=== PATIENT | male | born 1965 | race Caucasian/White ===

== ENCOUNTER → 2018-05-09 09:52 | Outpatient (CLI) | payer BC, SELFPAY ==
--- NOTE | 2018-05-09 10:05 | RAD_ITS ---
HISTORY: Left ankle pain Comparison: Left foot 11/11/2014 Findings: No fracture or acute disease. The tibiotalar joint space is preserved. No bony erosions. The talar dome appears intact. As visualized, the soft tissues are negative. Small plantar and posterior calcaneal spurs. RAD/Ankle min 3 Views IMPRESSION: 1. Negative left ankle. 2. Small plantar and posterior calcaneal spurs. at 0400 Reported and signed by: Jose Bass MD Electronically Signed: Jose Bass, at 3:58 EDT Tel , Service support ,
[2018-05-09 12:41] LABS: Anion Gap 9 (5-15); BUN 14 mg/dL (7-18); BUN/Creat Ratio 15.9 RATIO (10-20); Calcium,Total 8.8 mg/dL (8.5-10.1); Chloride 105 mmol/L (98-107); Cholesterol 243 mg/dL (200); Creatinine, Serum 0.88 mg/dL (0.70-1.30); EST Glomerular Filtration Rate 95 mL/min (>60); Est Glom Filt Rate - Afr Amer 115 mL/min (>60); Glucose 91 mg/dL (74-106); High Density Lipoprotein 43 mg/dL; PSA,Total - Annual Screen 1.58 ng/mL (0.00-4.00); Potassium 4.3 mmol/L (3.5-5.1); Sodium Level 140 mmol/L (136-145); Triglycerides 112 mg/dL; Very Low Density Lipoprotein 22 mg/dL (5-40)
[2018-05-09 12:44] LABS: Vitamin D,25 Hydroxy 41.4 ng/mL (29.95-100.01)
== END ==
PROVIDERS: Family Provider Family Medicine; PCP Family Medicine; Visit Provider Family Medicine
DX: Z00.00 Encounter for general adult medical examination without abnormal findings (principal); M25.572 Pain in left ankle and joints of left foot
CPT/HCPCS: 36415; 73610; 80048; 80061; 82306; 84153; G0103

== ENCOUNTER 2018-11-24 22:43 | Emergency (ER) | payer BC, SELFPAY ==
[2018-11-24 22:44] VITALS: BP 166/106; PULSE 80; RESP 16; TEMP 36.1; O2SAT 97; BMI 33.3
--- NOTE | 2018-11-24 23:11 | ED.DCSUM_ITS ---
- ER Visit Summary Date of Service: 11/24/18 Chief Complaint: Ear pain History of Present Illness: The patient is a 53 M who presents with right ear pain. Patient returns from vacation. He does not recall submerging his ear. He went to urgent care and was treated with amoxicillin. He attempted to irriga te his ear, but the pain is worse. It is intermittent, sharp, and severe. No hearing changes. No fevers. No other complaints or symptoms. Physical Examination: Right TM is occluded with cerumen. This was removed. TM appears to be intact, erythematous, bulging. Canal unremarkable. The remainder of his exam unremarkable. Test Results: None indicated Emergency Department Course and Treatment: Patient will discontinue amoxicillin. Will treat with Augmentin, prednisone, [place]. Follow-up with ENT for recheck Treatment Plan: As above Disposition: Discharge Impression: 1. Right ear pain This note was generated with [employer] dictation software. It may contain incorrect words, spelling, and punctuation that were not noted in review of the chart prior to signing ED Disposition - Plan for ED Patient: Referrals: Luis Enrique Napier MD [Primary Care Provider] -
--- NOTE | 2018-11-24 23:12 | ED.DEP ---
ED Disposition - Plan for ED Patient: Instructions: ED Otitis Media Acute Adult Prescriptions: Hydrocodone Bitart/Apap 5-325 [[place] 5MG-325MG] 1 tab PO Q6H PRN PRN 3 Days #10 tab PRN Reason: Pain Amox/Clavulanate Tablet [Augmentin Tablet] 875 mg PO Q12H #20 tab Prednisone 10 mg PO UD #33 tab Referrals: Luis Enrique Napier MD [Primary Care Provider] - Manjit Henderson MD [STAFF PHYSICIAN] -
[2018-11-24] MEDS: Amox/Clavulanate 875 MG Tablet PO (23:16)
[2018-11-24] MEDS: predniSONE 20 MG Tablet 60 MG PO (23:16)
[2018-11-24 23:17] VITALS: BP 173/100; PULSE 78; RESP 18; O2SAT 98
== END 2018-11-24 23:23 | disposition home or self-care (01) ==
LOC: ED 23:20
PROVIDERS: Emergency Provider Emergency Medicine; Family Provider Family Medicine; PCP Family Medicine
DX: H92.01 Otalgia, right ear (principal); H61.21 Impacted cerumen, right ear
CPT/HCPCS: 99283

== ENCOUNTER 2018-12-17 18:49 | Emergency (ER) | payer BC, SELFPAY ==
[2018-12-17 18:50] VITALS: BP 170/96; PULSE 109; RESP 16; TEMP 36.9; O2SAT 97; BMI 31.9
--- NOTE | 2018-12-17 18:52 | RAD_ITS ---
STUDY: X-RAY - LEFT ELBOW REASON FOR EXAM: Male, 53 years old. pop while lifting TECHNIQUE: 3 view(s) of the elbow. COMPARISON: None. FINDINGS: There is no evidence of fracture or dislocation. There are no significant degenerative changes. There are no radiodense foreign bodies. RAD/Elbow min 3 Views IMPRESSION: No fracture or dislocation. Electronically Signed: Carlos Estrada, at 19:06 EDT Tel , Service support ,
--- NOTE | 2018-12-17 20:20 | ED.VISSUMM ---
- ER Visit Summary Date of Service: 12/17/18 Chief Complaint: Left biceps injury History of Present Illness: The patient is a 53 M hand dominant. 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 Denies any fall or trauma. He is right-hand dominant. No prior history no prior surgery to his left elbow. No other complaints. Physical Examination: Middle-aged male no acute distress vital signs stable afebrile. HEENT exam unremarkable. Neck nontender. Lungs clear to auscultation bilaterally. Heart regular rhythm no murmur. Abdomen soft and nontender. Patient is moving all 4 extremities. Neurovascular intact. The medial aspect of the left lower biceps he has tenderness and retraction of the biceps proximally consistent with a left medial biceps tendon rupture. Otherwise he has full range of motion of his left shoulder was also nontender. Full flexion-extension of the elbow. 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 There is no swelling. Test Results: Nursing obtain a left elbow x-ray 3 views which showed no acute abnormality. No fracture. Emergency Department Course and Treatment: Examined history consistent with a left distal biceps tendon rupture. Treatment Plan: Ice and elevate. Motrin for pain. He does have Vicodin at home. Follow-up with Dr. De Paz of orthopedics. His is currently seeing her. Disposition: Discharge Impression: Left distal biceps tendon rupture This note was generated with [employer] dictation software. It may contain incorrect words, spelling, and punctuation that were not noted in review of the chart prior to signing ED Disposition - Plan for ED Patient: Referrals: Luis Enrique Napier MD [Primary Care Provider] -
--- NOTE | 2018-12-17 20:23 | ED.DCSUM_ITS ---
- ER Visit Summary Date of Service: 12/17/18 Chief Complaint: Left biceps injury History of Present Illness: The patient is a 53 M hand dominant. 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 Denies any fall or trauma. He is right-hand dominant. No prior history no prior surgery to his left elbow. No other complaints. Physical Examination: Middle-aged male no acute distress vital signs stable afebrile. HEENT exam unremarkable. Neck nontender. Lungs clear to auscultation bilaterally. Heart regular rhythm no murmur. Abdomen soft and nontender. Patient is moving all 4 extremities. Neurovascular intact. The medial aspect of the left lower biceps he has tenderness and retraction of the biceps proximally consistent with a left medial biceps tendon rupture. Otherwise he has full range of motion of his left shoulder was also nontender. Full flexion-extension of the elbow. And left wrist and hand are neurovascular intact nontender with normal radial pulse, joint yarner strength and sensation. There is no swelling. Test Results: Nursing obtain a left elbow x-ray 3 views which showed no acute abnormality. No fracture. Emergency Department Course and Treatment: Examined history consistent with a left distal biceps tendon rupture. Treatment Plan: Ice and elevate. Motrin for pain. He does have Vicodin at h ome. Follow-up with Dr. De Paz of orthopedics. His is currently seeing her. Disposition: Discharge Impression: Left distal biceps tendon rupture This note was generated with [employer] dictation software. It may contain incorrect words, spelling, and punctuation that were not noted in review of the chart prior to signing ED Disposition - Plan for ED Patient: Referrals: Luis Enrique Napier MD [Primary Care Provider] -
--- NOTE | 2018-12-17 20:23 | ED.DEP ---
ED Disposition - Plan for ED Patient: Disposition: Home or Assisted Living Referrals: Faith De Paz DO [STAFF PHYSICIAN] - 1 Week Additional Instructions: Ice and elevate left elbow. Motrin and Tylenol for pain. Your home Vicodin as needed for more severe pain. Your x-ray was unremarkable. Your exam is consistent with a left biceps tendon rupture. Call and follow-up with Dr. De Paz.
[2018-12-17 20:32] VITALS: PULSE 99; RESP 16; O2SAT 100
--- NOTE | 2018-12-17 20:55 | ED.RN ---
pt asking this rn in triage for sling. dr. pulido informed, verbal order for sling. sling place. pt educated on use.
== END 2018-12-17 20:32 | disposition home or self-care (01) ==
PROVIDERS: Emergency Provider Emergency Medicine; Family Provider Family Medicine; PCP Family Medicine
DX: S46.212A Strain of muscle, fascia and tendon of other parts of biceps, left arm, initial encounter (principal); X50.9XXA Other and unspecified overexertion or strenuous movements or postures, initial encounter; Y93.9 Activity, unspecified; Y92.9 Unspecified place or not applicable; Y99.9 Unspecified external cause status; K21.9 Gastro-esophageal reflux disease without esophagitis; Z79.899 Other long term (current) drug therapy
CPT/HCPCS: 73080; 99283

== ENCOUNTER → 2018-12-23 08:05 | Outpatient (CLI) | payer BC, SELFPAY ==
[2018-12-18 14:38] VITALS: BMI 31.9
--- NOTE | 2018-12-23 08:07 | MRI_ITS ---
STUDY: MRI LEFT ELBOW REASON FOR EXAM: Distal biceps tendon tear, left elbow injury 6 days ago. TECHNIQUE: Standardized fat and water weighted pulse sequences were obtained in all 3 orthogonal planes. COMPARISON: Radiographs 12/17/2018. FINDINGS: Normal radio-capitellum articulation. Normal radial collateral ligamentous complex. There is tendinosis of the common extensor tendon (inversion recovery coronal images 12, 13) without focal discontinuity of the tendon. Normal ulnotrochlear articulation. Normal ulnar collateral ligamentous complex. There is tendinosis of the common flexor tendon (inversion recovery coronal images 8, 9) without focal discontinuity of the tendon. The cubital tunnel is normal, with a normal ulnar nerve. There is a high-grade partial tear of the distal biceps tendon near the radial tuberosity insertion (T2 axial images 6-8; inversion recovery coronal image 18) with mild adjacent fluid/hemorrhage. There is edema at the distal biceps musculotendinous junction (inversion recovery coronal images 21, 22). Normal brachialis musculotendinous insertion. Normal triceps tendon and teno-osseous insertion. Normal olecranon process. The visualized distal humerus, proximal radius, and ulna are normal. There is a low-grade strain of the proximal flexor musculature (inversion recovery coronal image 11). There is edema in the subcutis adipose space. MRI/Upper Ext Joint Only(Routine) IMPRESSION: High-grade partial tear of the distal biceps tendon. Strain of the distal biceps musculotendinous junction. Tendinosis of the common extensor and common flexor tendons. Low-grade strain of the proximal flexor musculature. Electronically Signed: Kishore Allen MD at 9:32 EDT Tel , Service support ,
== END ==
PROVIDERS: Family Provider Family Medicine; PCP Family Medicine; Referring Provider Orthopaedic Surgery; Visit Provider Orthopaedic Surgery
DX: S46.212A Strain of muscle, fascia and tendon of other parts of biceps, left arm, initial encounter (principal); X58.XXXA Exposure to other specified factors, initial encounter; Y93.9 Activity, unspecified; Y92.9 Unspecified place or not applicable; Y99.9 Unspecified external cause status
CPT/HCPCS: 73221

== ENCOUNTER 2018-12-24 10:53 | Day surgery (SDC) | payer BC, SELFPAY ==
--- NOTE | 2018-12-18 02:38 | HP_ITS ---
I have re-examined the patient. There are no clinical changes since date of exam. Intake Intake Visit Reasons: LViry MAHMOOD Is patient in pain?: Yes Pain scale (1-10): 4 Allergies pseudoephedrine Allergy (Verified 11/24/18 22:43) Other Gadolinium-MRI Contrast Medium [Gadolinium-Contrast Medium - MRI] Adverse Reaction (Verified 11/24/18 22:43) Vomiting Medications Omeprazole 20 mg PO DAILY 12/17/18 [History Confirmed 12/17/18] PFSH Social History Smoking Status: Never smoker HPI Primitivo MAHMOOD: Surgical H&P: Yes Details: Parts of this documentation were recorded by a scribe, this documentation accurately reflects the service provided and the decisions made by me, Faith De Paz, DO 12/18/18 4115. IRENE NIETO is a 53 year old M here today for left distal biceps rupture referred from the ED. He states he was lifting a pool of the van last night and felt a pop in the elbow. He presents in a sling that he did remove for sleeping last night but has swelling in the forearm and hand with pain during rotation. He did use vicodin last night that he had at home but does not want to use anything like that again. Ortho Exam Left Elbow Sensation: Radial: I, Ulnar: I, Median: I Motor: Elbow Extension: 5, Elbow Flexion: 2 (painful supination swelling, no distal biceps tendon palpated), EPL: 5, FDP-2: 5 Assessment & Plan Problems 1. Traumatic rupture of left distal biceps tendon, initial encounter S46.212A Plan Explained that he needs the biceps reattached, we will order a pre-op MRI for the repair next saturday. 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 Reviewed the pre-operative plans with the patient. Risks and benefits of the procedure were fully explained, including but not limited to infection, neurovascular injury, continued pain, arthritis, stiffness, need for further surgery, re-injury, DVT, PE, general risks of anesthesia, and loss of limb or life. The patient understands all the risks and does wish to proceed with written consent. Follow up after 2 wks postop or sooner if pain, swelling, numbness or associated symptoms, or concerns develop. All questions answered. Patient in agreement of plan. Orders Orders: Upper Ext Joint Only(Routine) Today S46.212A Coding Level of Care Code Off vis,new,level 3 Diagnoses Traumatic rupture of left distal biceps tendon, initial encounter S46.212A ??Encounter type: initial encounter 12/18/18 1438 <Electronically signed by Faith ogden DO> Date _ Faith De Paz DO
[2018-12-18 14:38] VITALS: BMI 31.9
[2018-12-24] VITALS (16 sets, daily range): BP systolic 148–183; BP diastolic 94–107; PULSE 80–108; RESP 16–18; TEMP 36.4–37.4; O2SAT 90–100; BMI 33.5
--- NOTE | 2018-12-24 12:45 | TESH_PTH ---
PATIENT: IRENE NIET[place] [facility] [id number] AGE/SX: 53/M ROOM: RE12/24/[address]: Dr. Faith De Paz DO : 1965 BED: DIS: 12/24/2018 SPEC #: [id number] RECD: 12/25/18 08:09 STATUS: ASTER EPHRAIM #: [id number] ADAN: 12/24/18 12:[address]: Faith De Paz DEPT: SURGICAL PATHOLOGY RECD BY: Miguel Angel Winn ENTERED: 12/25/18 09:43 SP TYPE: TENDON OTHR DR: Dr. Luis Enrique Napier MD Tissues: Tendon and tendon sheath, NOS Procedures: Surgery Specimen Level III HEADER OPERATION: Repair distal biceps tendon PRE-OP DIAGNOSIS: Traumatic rupture of left distal biceps tendon TISSUE SUBMITTED: Biceps tendon MICROSCOPIC DIAGNOSIS Biceps tendon, repair: Degenerative fibrotendinous tissue with granulation tissue formation; clinically traumatic rupture of distal biceps tendon. CE:wilmer 12/26/18 MICROSCOPIC DESCRIPTION Slides are reviewed. GROSS DESCRIPTION Received in fixative is one container labeled with the patient's name and designated biceps tendon. The specimen consists of a single caban-pink portion of soft tissue measuring 1.4 x 1 x 0.8 cm. The specimen is bisected and totally submitted in one cassette. / CE:wilmer 12/25/18 TC:5 CPT: 18224
--- NOTE | 2018-12-24 12:54 | RAD_ITS ---
STUDY: X-RAY - LEFT ELBOW REASON FOR EXAM: Male, 53 years old. Fluoroscopic guided intraoperative distal biceps repair TECHNIQUE: 3 fluoroscopic view(s) of the elbow. COMPARISON: None. FINDINGS: 3 views were obtained utilizing fluoroscopic guidance during intraoperative repair of distal biceps. For more complete information recommend correlation with surgical notes.. RAD/Elbow 2 Views IMPRESSION: Intraoperative repair of distal biceps Electronically Signed: Carlos Disla MD at 16:16 EDT , Service support ,
[2018-12-24] MEDS: Cefazolin 2 GM in 0.9% Normal Saline 100 ML IV (13:26)
[2018-12-24] MEDS: Mupirocin Ointment 22gm Tube 1 APPLIC (15:35)
[2018-12-24] MEDS: Bupivacaine 0.25% 30 ML Vial (15:36)
--- NOTE | 2018-12-24 15:59 | DCINST_ITS ---
Discharge Diet: No Restrictions - leave dressing on, follow up in 2 weeks, sling for comfort, call with concerns, no active motion of elbow/passive rotation and flexion only Discharge Activity: May Not Drive May shower in (days): 1 Ice area for (Minutes): 20 - Every hour while awake. Weight Bearing Status: Weight bearing as tolerated Keep extremity elevated above heart level: Operative Extremity Call your doctor if your incision/area has: Continuous Slow Oozing, Sudden Increased Bleeding, Increased Pain/ Swelling, Increased Redness, Foul Smelling Discharge Call your doctor if you observe: Fever of 101 or Higher, Coldness, Increased Pain, Numbness or Tingling, Change in Color, Calf discomfort Allergies/Adverse Reactions: Allergies pseudoephedrine Allergy (Verified 12/22/18 13:12) Other HTN Gadolinium-MRI Contrast Medium [Gadolinium-Contrast Medium - MRI] Adverse Reaction (Verified 12/22/18 13:12) Vomiting Medications to take at Discharge Omeprazole 20 mg PO QHS 12/17/18 Armodafinil [Nuvigil] 75 mg PO QHS 12/22/18 Oxycodone HCl/Acetaminophen [Percocet 5/325] 1 - 2 tab PO Q6H PRN PRN 5 Days #60 tab 12/24/18 Oxycodone HCl/Acetaminophen [Percocet 5/325] 1 - 2 tablet PO Q6H PRN PRN 5 Days #28 tablet 12/24/18 The following prescriptions were given: Oxycodone HCl/Acetaminophen [Percocet 5/325] 1 - 2 tab PO Q6H PRN PRN 5 Days #60 tab PRN Reason: Pain Transmission Status: Pending to [facility] Oxycodone HCl/Acetaminophen [Percocet 5/325] 1 - 2 tablet PO Q6H PRN PRN 5 Days #28 tablet PRN Reason: Pain Transmission Status: Sent to [facility] Primary Care Physician: Luis Enrique Napier MD [Primary Care Provider] - Test Results: Test results from this visit will be discussed in further detail at your follow- up appointment, if applicable. Please Follow Up With: Faith De Paz, - [phone]
--- NOTE | 2018-12-24 16:00 | PCM.OPRPT ---
Report of Operation Date of Procedure: 12/24/18 Pre-Operative Diagnosis: left distal biceps rupture Post-Operative Diagnosis: same Surgery/Procedure Performed:: left distal biceps repair/arthrex tension button and screw customer success intern: Jose Rubio Type of Anesthesia:: General Anesthesiologist: Manjit Oh Estimated Blood Loss (mL): 25cc Fluids Replaced: 1100cc lr Description of Procedure: Preop note Patient is a 53-year-old male who was doing work and felt immediate pop and deformity of his elbow. Seen in the emergency room and thought to have distal biceps tendon was MRI confirms distal biceps tendon tear to my office. Patient discussed clinical options including repair versus conservative care, patient states he is quite active and would like use of his biceps for supination like to proceed with left distal biceps repair. Wrist benefits alternatives were discussed the patient risks including but not limited to blood loss, blood clot, infection, neurovascular injury, failure procedure, loss of life and loss of limb. Patient is aware like proceed with left distal biceps repair. Operative note Patient seen and examined preoperative holding area. Left arm was marked. Patient brought the operating placed supine the operating table. Sign, anesthesia, antibiotics were administered. Left arm kept a draped in usual sterile fashion with a tourniquet on his upper arm was sterilely placed. We then marked our incision using fluoroscopy to ascertain the level of the radial tuberosity is about a 4 cm transverse incision about 4 cm distal to the flexion crease. We then used a timeout was performed and we then elevated segment of the arm pressure was raised to 250 torr. We then used a 15 blade to cut the skin dissected down to 9 the level of the biceps tendon but this was actually behind the lesion biceps quickly 1 of the vessels on his anterior distal dorsal arthritis volar to the biceps tendon however is secondary the fact that it was not retracted we left the remaining vessels intact. We notify the biceps tendon but the tendon was then lifted to the distal origin we then find the radial tuberosity after good positioning and cleaning of the distal end of the biceps tendon we then drilled 3.2 mm Arthrex system for distal biceps repair we drilled bicortically and then you will do and then measured our tendon to be 7 mm tendon we drilled 8 mm for the unicortical he we then placed the ends of the whipstitched tendon through the button button was then placed through the radial tuberosity to the other side and flipped. We then brought the tendon into the debrided unicortical he area. Patient with a prior to this we did irrigate the incision with copious with the sertraline sterile saline the event of any bone debris. The tendon try did seated well and are prepared hole. We then over we then used a 7 x 7 screw millimeters screws to be really to push the tendon ulnarly for definitive fixation of the for extra back-up fixation of the biceps tendon. The incision was irrigated with copious muscle sterile saline. Incision was closed with 3-0 Vicryl in a running 4-0 Monocryl. Sterile dressings were brought were applied. Tourniquet was deflated for total working time of 90 minutes. Patient tolerated procedure well no comp occasions transferred to recovery room in stable condition. Next Postoperative note Hospital pharmacy has prescriptions Call with concerns Follow-up in 2 weeks Leave dressing intact This note was generated with [employer] dictation software. It may contain incorrect words, spelling, and punctuation that were not noted in checking the note before signing. No active range of motion of arm in supination flexion or pronation discussed with family Addendum 01/02/2019 Evaluated patient after called by nurse for concerns with his postoperative arm. Evaluated patient and he had a swollen arm and cool hand and a thready radial pulse c/w compartment syndrome secondary to vascular injury. Attempted to call vascular surgeon who was not available in our hospital, and so I decided to transfer him to [facility]. Called vascular surgeon at [facility] and discussed case, patient accepted and transferred. Discussed case with Ortho and ER accepting doctors at [facility] as well.
[2018-12-24] MEDS: HYDROcodone Bitartrate/Apap 5/325 Tablet PO (16:58)
== END 2018-12-24 19:55 | disposition short-term general hospital (02) ==
LOC: SDC 10:55 → AC 10:58
PROVIDERS: Family Provider Family Medicine; PCP Family Medicine; Referring Provider Orthopaedic Surgery; Visit Provider Orthopaedic Surgery
PROC: (CPT 24341; principal; 2018-12-24 12:30)
DX: S46.212A Strain of muscle, fascia and tendon of other parts of biceps, left arm, initial encounter (principal); X50.9XXA Other and unspecified overexertion or strenuous movements or postures, initial encounter; Y93.9 Activity, unspecified; Y92.9 Unspecified place or not applicable; Y99.9 Unspecified external cause status; E78.00 Pure hypercholesterolemia, unspecified; G47.30 Sleep apnea, unspecified; Z79.899 Other long term (current) drug therapy
CPT/HCPCS: 01710; 24341; 73070; 76000; 88304; J7120; J2405

== ENCOUNTER → 2019-01-12 13:58 | Outpatient (CLI) | payer BC, SELFPAY ==
[2019-01-06 14:11] VITALS: BMI 33.5
[2019-01-12 15:37] LABS: Basophil# 0.02 X10^3/uL; Basophil% 0.5 % (0-1); Eosinophil# 0.07 X10^3/uL; Eosinophils% 1.9 % (0-5); Hematocrit 35.9 % (40-54); Hemoglobin 10.7 g/dl (13.0-16.5); Lymphocyte % 29.3 % (19-41); Mean Corp Hgb Conc 29.8 g/gl (32-36); Mean Corpuscular Hgb 26.1 pg (27.0-32.0); Mean Corpuscular Volume 87.6 fL (80-94); Mean Platelet Vol. 8.9 fl (6.2-12.0); Monocyte# 0.51 X10^3/uL; Monocyte% 13.6 % (0-10); Neutrophil # 2.03 X10^3/uL (2.7-7.7); Neutrophil % 53.9 % (47-70); Platelet Count 437 K/mm3 (150-450); RBC Distribution Width CV 15.9 % (11.6-14.6); RBC Distribution Width SD 49.8 fl (35.1-43.9); White Blood Count 3.8 K/mm3 (4.4-11.0)
[2019-01-12 15:43] LABS: POSITIVE COUNT NO; POSITIVE DIFFERENTIAL NO; POSITIVE MORPHOLOGY NO
[2019-01-12 15:46] LABS: ALB/GLOB Ratio 0.8 RATIO (0.9-2.4); AST(SGOT) 44 U/L (15-37); Alanine Aminotransfer ALT/SGPT 75 U/L (16-61); Albumin, Serum 3.3 g/dL (3.2-5.0); Alkaline Phosphatase 165 U/L (45-117); Anion Gap 5 (5-15); BUN 12 mg/dL (7-18); BUN/Creat Ratio 12.6 RATIO (10-20); Calcium,Total 9.2 mg/dL (8.5-10.1); Chloride 101 mmol/L (98-107); Creatinine, Serum 0.96 mg/dL (0.70-1.30); EST Glomerular Filtration Rate 87 mL/min (>60); Est Glom Filt Rate - Afr Amer 105 mL/min (>60); Globulin 4.2 g/dL (2.2-4.2); Glucose 94 mg/dL (74-106); Potassium 4.2 mmol/L (3.5-5.1); Protein, Total 7.5 g/dL (6.4-8.2); Sodium Level 138 mmol/L (136-145)
== END ==
PROVIDERS: Family Provider Family Medicine; PCP Family Medicine; Visit Provider Physician Assistant
DX: Z47.89 Encounter for other orthopedic aftercare (principal)
CPT/HCPCS: 36415; 80053; 85025

== ENCOUNTER 2019-03-30 16:52 | Emergency (ER) | payer BC, SELFPAY ==
[2019-01-06 14:11] VITALS: BMI 33.5
[2019-03-30 16:52] VITALS: BP 211/123; PULSE 93; RESP 17; TEMP 36.3; O2SAT 96; BMI 33.7
--- NOTE | 2019-03-30 19:35 | ED.RN ---
patient left without being seen at 1906
== END 2019-03-30 20:10 | disposition left against medical advice (07) ==
LOC: ED 20:06
PROVIDERS: Emergency Provider Emergency Medicine; Family Provider Family Medicine; PCP Family Medicine
DX: R51 Headache (principal); Z53.21 Procedure and treatment not carried out due to patient leaving prior to being seen by health care provider

== ENCOUNTER → 2019-04-03 08:53 | Outpatient (CLI) | payer BC, SELFPAY ==
[2019-03-30 16:52] VITALS: BMI 33.7
[2019-04-03 10:10] LABS: Anion Gap 6 (5-15); BUN 17 mg/dL (7-18); BUN/Creat Ratio 16.2 RATIO (10-20); Calcium,Total 9.2 mg/dL (8.5-10.1); Chloride 101 mmol/L (98-107); Creatinine, Serum 1.05 mg/dL (0.70-1.30); EST Glomerular Filtration Rate 78 mL/min (>60); Est Glom Filt Rate - Afr Amer 94 mL/min (>60); Glucose 115 mg/dL (74-106); Potassium 4.1 mmol/L (3.5-5.1); Sodium Level 137 mmol/L (136-145)
== END ==
PROVIDERS: Family Provider Family Medicine; PCP Family Medicine; Referring Provider Family Medicine; Visit Provider Nurse Practitioner Adult Health
DX: I10 Essential (primary) hypertension (principal)
CPT/HCPCS: 36415; 80048

== ENCOUNTER → 2019-04-07 09:00 | Outpatient (CLI) | payer BC, SELFPAY ==
[2019-03-30 16:52] VITALS: BMI 33.7
[2019-04-07 11:15] LABS: Anion Gap 9 (5-15); BUN 17 mg/dL (7-18); BUN/Creat Ratio 17.7 RATIO (10-20); Calcium,Total 9.9 mg/dL (8.5-10.1); Chloride 101 mmol/L (98-107); Creatinine, Serum 0.96 mg/dL (0.70-1.30); EST Glomerular Filtration Rate 86 mL/min (>60); Est Glom Filt Rate - Afr Amer 104 mL/min (>60); Glucose 95 mg/dL (74-106); Potassium 4.4 mmol/L (3.5-5.1); Sodium Level 141 mmol/L (136-145)
== END ==
PROVIDERS: Family Provider Family Medicine; PCP Family Medicine; Referring Provider Family Medicine; Visit Provider Family Medicine
DX: I10 Essential (primary) hypertension (principal)
CPT/HCPCS: 36415; 80048

== ENCOUNTER 2019-04-30 10:00 | Outpatient (RCR) | payer BC, SELFPAY ==
[2019-04-16 10:34] VITALS: BP 143/85; PULSE 100; RESP 16; TEMP 36.7; BMI 32.6
--- NOTE | 2019-04-16 11:30 | PCM.WC.HP ---
(1) Non-healing surgical wound Status: Chronic Current Visit: Yes Code(s): T81.89XA - Other complications of procedures, not elsewhere classified, initial encounter (2) History of fasciotomy Status: Chronic Current Visit: Yes Code(s): Z98.890 - Other specified postprocedural states History of Present Illness Date of Service: 04/16/19 Chief Complaint: Non healing Post surgical wound History of Wound: Mr Sanders is a 53yr old who was referred to the wound center due to non healing post surgical wound. He is s/p left arm facsiotomy in December after he developed compartment syndrome. He had stitch removal a while after and noted a non healed area which has persisted. He has tried some conservative measures without any significant improvement. He was subsequently referred here by his Orthopedic surgeon. He feels well at this time and denies chills or fever. Past Medical History Past Medical History: Chronic Problems Non-healing surgical wound (Chronic) History of fasciotomy (Chronic) Allergies/Adverse Reactions: Allergies pseudoephedrine Allergy (Verified 03/30/19 16:55) Other HTN Gadolinium-MRI Contrast Medium [Gadolinium-Contrast Medium - MRI] Adverse Reaction (Verified 03/30/19 16:55) Vomiting Home Medications: Ambulatory Orders Medication Instructions Recorded Omeprazole 20 mg PO QHS 12/17/18 Armodafinil [Nuvigil] 75 mg PO QHS 12/22/18 enoxaparin 40 mg/0.4 mL 40 mg SC DAILY 01/06/19 subcutaneous syringe Smoking Status: Never smoker Review of Systems Constitutional: Denies: Anorexia, Chills, Fever Eyes: Denies: Blurred vision, Pain, Redness HEENT: Denies: Difficulty Swallowing Cardiovascular: Denies: Chest Pain, Chest Tightness Respiratory: Denies: Hemoptysis Gastrointestinal: Denies: Abdominal Pain, Hematemesis, Vomiting Genitourinary: Denies: Hematuria Skin: Denies: Jaundice - Physical Exam Vital Signs Temp Pulse Resp BP 98.0 F 100 16 143/85 H 04/16/19 10:34 04/16/19 10:34 04/16/19 10:34 04/16/19 10:34 General: Alert, Oriented x3, Cooperative, No apparent distress HEENT: Atraumatic, Normocephalic Oral: Moist Mucosa Neck: Supple Lungs: Normal air movement Cardiovascular: Regular rate, Regular Rhythm, Normal S1, Normal S2 Abdomen: Soft, Non Tender Extremities: No cyanosis Skin: Ulcer/ Wound Wound Measurements and Assessment WC - Nurse 1 - General Ulcer Measurement Start: 04/16/19 10:34 Freq: Status: Active Protocol: Activity Type Activity Date Activity User E-Sign Co-Sign Detail Recorded Client Recorded Date Recorded By Document 04/16/19 10:34 CS [id number] 04/16/19 10:51 CS 04/16/19 10:34 Wound Center Nurse 1 [Ulcer Assessment] #1 LEFT WRIST -Combined with other wound No -Current Size (cm) - Length 1.9 -Current Size (cm) - Width 0.5 -Current Size (cm) - Depth 0.1 -Total Square Cm 0.95 -Date of Last Picture (Recall this 04/16/19 field) -Photo Taken Yes -Epithelialization None Present -Tunneling No -Undermining/Tunneling No -Circular Undermining No -Exudate Amt None Present -Wound Margin Thickened -Granulation Amt None Present (0 %) -Slough/Fibrin Yes -Necrosis Amt Large (67-100%) -Necrotic Tissue Type Adherent Slough -Structure Exposed N/A -Texture (Sonia-wound Skin Appearance) Scarring -Moisture (Sonia-wound Skin Appearance Dry/Scaly ) -Color (Sonia-wound Skin Appearance) No Abnormality, Assessed -Temperature (Sonia-wound Skin No Abnormality Appearance) (Pt Warm) -Tenderness on Palpation (Sonia-wound No Skin Appearance) -Ulcer Cleansing Rinsed/ Irrigated with Saline -Foul Odor after Cleansing No -Anesthetic Used 4% Lidocaine Solution [Edema Assessment] -Lower Limb Edema Present NA WC - Nurse 2 - General Ulcer CM Notes Start: 04/16/19 10:34 Freq: Status: Active Protocol: Activity Type Activity Date Activity User E-Sign Co-Sign Detail Recorded Client Recorded Date Recorded By Document 04/16/19 11:06 MW [id number] 04/16/19 11:10 MW 04/16/19 11:06 Wound Center Nurse 2 [Procedure/Treatment] #1 LEFT WRIST -Time 11:06 -Correct Patient Yes -Correct Side, Site, Position Yes -Correct Procedure Yes -Procedure Performed Yes -Type of Procedure Debridement -Clinical Debridement Subcutaneous -Post Debridement Size (cm) - Length 3.0 -Post Debridement Size (cm) - Width 0.7 -Post Debridement Size (cm) - Depth 0.1 -Total Square Cm 2.10 -Wound/Ulcer Outcome Not Healed -Ulcer Cleansing Rinsed/ Irrigated with Saline -Foul Odor after Cleansing No -Bioengineered Tissue No -Bleeding Controlled with Pressure -Offloading No -Treatment Response Procedure Tolerated Well [See Physician Procedure note for Specifics] Pain Scale: 0-10 Numeric [Pain] -Is Patient Pain Free? Yes Musculoskeletal: No Muscle Wasting Neurological: Cranial nerves II-XII grossly intact Psych/Mental Status: Normal Affect Debridement Note Post-Debridement Measurements/Treatment WC - Nurse 2 - General Ulcer CM Notes Start: 04/16/19 10:34 Freq: Status: Active Protocol: Activity Type Activity Date Activity User E-Sign Co-Sign Detail Recorded Client Recorded Date Recorded By Document 04/16/19 11:06 MW [id number] 04/16/19 11:10 MW 04/16/19 11:06 Wound Center Nurse 2 #1 LEFT WRIST -Time 11:06 -Correct Patient Yes -Correct Side, Site, Position Yes -Correct Procedure Yes -Procedure Performed Yes -Type of Procedure Debridement -Clinical Debridement Subcutaneous -Post Debridement Size (cm) - Length 3.0 -Post Debridement Size (cm) - Width 0.7 -Post Debridement Size (cm) - Depth 0.1 -Total Square Cm 2.10 -Wound/Ulcer Outcome Not Healed -Ulcer Cleansing Rinsed/ Irrigated with Saline -Foul Odor after Cleansing No -Bioengineered Tissue No -Bleeding Controlled with Pressure -Offloading No -Treatment Response Procedure Tolerated Well Pain Scale: 0-10 Numeric Is Patient Pain Free? Yes Wound debrided: Left forearm Type of Debridement: Excisional debridement Anesthesia Used: 4% Lidocaine Solution Depth: Down to and including healthy tissue, in the subcutaneous layer Percentage of wound debrided: 100 Instrument Used: 5mm curette Tissue Removed: Slough and devitalized tissue Severity: Fat Layer Exposed Amount of bleeding with debridement: Mild Bleeding Controlled with: Pressure Patient tolerated procedure well Assessment/Plan Active Problems Non-healing surgical wound (Chronic) History of fasciotomy (Chronic) Assessment: Same as above. Plan: Debridement done as documented above, procedure was well tolerated. Pomogran daily with adaptic over top. Increased protein intake is recommended. Single layer tubigrip for compression. His questions were answered and he was advised to call with any further questions or concerns. Follow up in 1 week.
[2019-04-23 09:25] VITALS: BP 159/97; PULSE 94; RESP 16; TEMP 36; BMI 32.6
--- NOTE | 2019-04-23 10:18 | PN.PCM_ITS ---
(1) Non-healing surgical wound Status: Chronic Current Visit: Yes Code(s): T81.89XA - Other complications of procedures, not elsewhere classified, initial encounter (2) History of fasciotomy Status: Chronic Current Visit: Yes Code(s): Z98.890 - Other specified postprocedural states Type of Wound Date of Service: 04/23/19 Chief Complaint: Non healing Post surgical wound History of Wound: Mr Sanders is a 53yr old who was referred to the wound center due to non healing post surgical wound. He is s/p left arm facsiotomy in December after he developed compartment syndrome. He had stitch removal a while after and noted a non healed area which has persisted. He has tried some conservative measures without any significant improvement. He was subsequently referred here by his Orthopedic surgeon. He feels well at this time and denies chills or fever. Progress of Wound: Stable. No new concerns at this time. - Physical Exam Vital Signs Temp Pulse Resp BP 96.8 F L 94 16 159/97 H 04/23/19 09:25 04/23/19 09:25 04/23/19 09:25 04/23/19 09:25 General: Alert, Oriented x3, Cooperative, No apparent distress HEENT: Atraumatic, Normocephalic Oral: Moist Mucosa Neck: Supple Extremities: No cyanosis Skin: Ulcer/ Wound Wound Measurements and Assessment WC - Nurse 1 - General Ulcer Measurement Start: 04/16/19 10:34 Freq: Status: Active Protocol: Activity Type Activity Date Activity User E-Sign Co-Sign Detail Recorded Client Recorded Date Recorded By Document 04/23/19 09:25 [facility] [id number] 04/23/19 09:31 [facility] 04/23/19 09:25 Wound Center Nurse 1 [Ulcer Assessment] #1 LEFT WRIST -Combined with other wound No -Current Size (cm) - Length 3.6 -Current Size (cm) - Width 0.5 -Current Size (cm) - Depth 0.1 -Total Square Cm 1.80 -Photo Taken No -Epithelialization Small 1-33% -Tunneling No -Undermining/Tunneling No -Circular Undermining No -Exudate Amt Small -Exudate Type Serous -Wound Margin Distinct, Outline Attached -Granulation Amt Medium (34-66%) -Granulation Quality Red -Slough/Fibrin Yes -Necrosis Amt Medium (34-66%) -Necrotic Tissue Type Adherent Slough -Texture (Sonia-wound Skin Appearance) Assessed, Scarring -Moisture (Sonia-wound Skin Appearance Assessed ) -Color (Sonia-wound Skin Appearance) Not Assessed -Temperature (Sonia-wound Skin No Abnormality Appearance) (Pt Warm) -Tenderness on Palpation (Sonia-wound No Skin Appearance) -Ulcer Cleansing Rinsed/ Irrigated with Saline -Foul Odor after Cleansing No -Anesthetic Used 5% Lidocaine Gel - Nurse 2 - General Ulcer CM Notes Start: 04/16/19 10:34 Freq: Status: Active Protocol: Activity Type Activity Date Activity User E-Sign Co-Sign Detail Recorded Client Recorded Date Recorded By Document 04/23/19 09:51 MW [id number] 04/23/19 09:54 MW 04/23/19 09:51 Wound Center Nurse 2 [Procedure/Treatment] -Time 09:52 -Correct Patient Yes -Correct Side, Site, Position Yes -Correct Procedure Yes -Procedure Performed Yes -Type of Procedure Debridement -Clinical Debridement Subcutaneous -Post Debridement Size (cm) - Length 3.2 -Post Debridement Size (cm) - Width 0.5 -Post Debridement Size (cm) - Depth 0.1 -Total Square Cm 1.60 -Wound/Ulcer Outcome Not Healed -Ulcer Cleansing Rinsed/ Irrigated with Saline -Foul Odor after Cleansing No -Bioengineered Tissue No -Bleeding Controlled with Pressure -Offloading No -Treatment Response Procedure Tolerated Well [See Physician Procedure note for Specifics] Pain Scale: 0-10 Numeric [Pain] -Is Patient Pain Free? Yes Musculoskeletal: No Muscle Wasting Neurological: Cranial nerves II-XII grossly intact Psych/Mental Status: Normal Affect Debridement Note Post-Debridement Measurements/Treatment - Nurse 2 - General Ulcer CM Notes Start: 04/16/19 10:34 Freq: Status: Active Protocol: Activity Type Activity Date Activity User E-Sign Co-Sign Detail Recorded Client Recorded Date Recorded By Document 04/16/19 11:06 MW [id number] 04/16/19 11:10 MW Document 04/23/19 09:51 MW [id number] 04/23/19 09:54 MW 04/16/19 04/23/19 11:06 09:51 Wound Center Nurse 2 #1 LEFT WRIST -Time 11:06 09:52 -Correct Patient Yes Yes -Correct Side, Site, Position Yes Yes -Correct Procedure Yes Yes -Procedure Performed Yes Yes -Type of Procedure Debridement Debridement -Clinical Debridement Subcutaneous Subcutaneous -Post Debridement Size (cm) - Length 3.0 3.2 -Post Debridement Size (cm) - Width 0.7 0.5 -Post Debridement Size (cm) - Depth 0.1 0.1 -Total Square Cm 2.10 1.60 -Wound/Ulcer Outcome Not Healed Not Healed -Ulcer Cleansing Rinsed/ Rinsed/ Irrigated with Irrigated with Saline Saline -Foul Odor after Cleansing No No -Bioengineered Tissue No No -Bleeding Controlled with Pressure Pressure -Offloading No No -Treatment Response Procedure Procedure Tolerated Well Tolerated Well Pain Scale: 0-10 Numeric Is Patient Pain Free? Yes Yes Wound debrided: Left Forearm Type of Debridement: Excisional debridement Anesthesia Used: 4% Lidocaine Solution Depth: Down to and including healthy tissue, in the subcutaneous layer Percentage of wound debrided: 100 Instrument Used: 3mm curette Tissue Removed: Slough and devitalized tissue Severity: Fat Layer Exposed Amount of bleeding with debridement: Mild Bleeding Controlled with: Pressure Patient tolerated procedure well Assessment/Plan Active Problems Non-healing surgical wound (Chronic) History of fasciotomy (Chronic) Assessment: Same as above. Plan: Debridement done as documented above, procedure was well tolerated. Continue Pomogran daily with adaptic over top. Increased protein intake is recommended. Single layer tubigrip for compression. His questions were answered and he was advised to call with any further questions or concerns. Follow up in 1 week.
[2019-04-30 10:08] VITALS: BP 150/82; PULSE 91; RESP 20; TEMP 36.8; BMI 32.6
--- NOTE | 2019-04-30 10:34 | PCM.WC.PN ---
(1) Non-healing surgical wound Status: Chronic Current Visit: Yes Code(s): T81.89XA - Other complications of procedures, not elsewhere classified, initial encounter Comment: Left Forearm. (2) History of fasciotomy Status: Chronic Current Visit: Yes Code(s): Z98.890 - Other specified postprocedural states Type of Wound Date of Service: 04/30/19 Chief Complaint: Non healing Post surgical wound History of Wound: Mr Sanders is a 53yr old who was referred to the wound center due to non healing post surgical wound. He is s/p left arm facsiotomy in December after he developed compartment syndrome. He had stitch removal a while after and noted a non healed area which has persisted. He has tried some conservative measures without any significant improvement. He was subsequently referred here by his Orthopedic surgeon. He feels well at this time and denies chills or fever. Progress of Wound: Stable. No new concerns at this time. - Physical Exam Vital Signs Temp Pulse Resp BP 98.2 F 91 20 H 150/82 H 04/30/19 10:08 04/30/19 10:08 04/30/19 10:08 04/30/19 10:08 General: Alert, Oriented x3, Cooperative, No apparent distress HEENT: Atraumatic, Normocephalic Oral: Moist Mucosa Neck: Supple Lungs: Normal air movement Abdomen: Non Tender, Obese Extremities: No cyanosis Skin: Ulcer/ Wound Wound Measurements and Assessment WC - Nurse 1 - General Ulcer Measurement Start: 04/16/19 10:34 Freq: Status: Active Protocol: Activity Type Activity Date Activity User E-Sign Co-Sign Detail Recorded Client Recorded Date Recorded By Document 04/30/19 10:08 DL [id number] 04/30/19 10:14 DL 04/30/19 10:08 Wound Center Nurse 1 [Ulcer Assessment] #1 LEFT WRIST -Current Size (cm) - Length 2.1 -Current Size (cm) - Width 0.1 -Current Size (cm) - Depth 0.1 -Total Square Cm 0.21 -Photo Taken No -Exudate Amt None Present -Wound Margin Thickened -Granulation Quality [place] -Necrosis Amt Small (1-33%) -Necrotic Tissue Type Adherent Slough -Structure Exposed N/A -Texture (Sonia-wound Skin Appearance) Scarring -Moisture (Sonia-wound Skin Appearance No Abnormality ) -Color (Sonia-wound Skin Appearance) No Abnormality -Temperature (Sonia-wound Skin No Abnormality Appearance) (Pt Warm) -Tenderness on Palpation (Sonia-wound No Skin Appearance) -Ulcer Cleansing Rinsed/ Irrigated with Saline -Foul Odor after Cleansing No -Anesthetic Used 5% Lidocaine Gel WC - Nurse 2 - General Ulcer CM Notes Start: 04/16/19 10:34 Freq: Status: Active Protocol: Activity Type Activity Date Activity User E-Sign Co-Sign Detail Recorded Client Recorded Date Recorded By Document 04/30/19 10:30 MW [id number] 04/30/19 10:32 MW 04/30/19 10:30 Wound Center Nurse 2 [Procedure/Treatment] -Time 10:30 -Correct Patient Yes -Correct Side, Site, Position Yes -Correct Procedure Yes -Procedure Performed Yes -Type of Procedure Debridement -Clinical Debridement Subcutaneous -Post Debridement Size (cm) - Length 2.3 -Post Debridement Size (cm) - Width 0.3 -Post Debridement Size (cm) - Depth 0.1 -Total Square Cm 0.69 -Wound/Ulcer Outcome Not Healed -Ulcer Cleansing Rinsed/ Irrigated with Saline -Foul Odor after Cleansing No -Bioengineered Tissue No -Bleeding Controlled with Pressure -Offloading No -Treatment Response Procedure Tolerated Well [See Physician Procedure note for Specifics] Pain Scale: 0-10 Numeric [Pain] -Is Patient Pain Free? Yes Musculoskeletal: No Muscle Wasting Neurological: Cranial nerves II-XII grossly intact Psych/Mental Status: Normal Affect Debridement Note Post-Debridement Measurements/Treatment WC - Nurse 2 - General Ulcer CM Notes Start: 04/16/19 10:34 Freq: Status: Active Protocol: Activity Type Activity Date Activity User E-Sign Co-Sign Detail Recorded Client Recorded Date Recorded By Document 04/16/19 11:06 MW [id number] 04/16/19 11:10 MW Document 04/23/19 09:51 MW [id number] 04/23/19 09:54 MW Document 04/30/19 10:30 MW [id number] 04/30/19 10:32 MW 04/16/19 04/23/19 04/30/19 11:06 09:51 10:30 Wound Center Nurse 2 #1 LEFT WRIST -Time 11:06 09:52 10:30 -Correct Patient Yes Yes Yes -Correct Side, Site, Position Yes Yes Yes -Correct Procedure Yes Yes Yes -Procedure Performed Yes Yes Yes -Type of Procedure Debridement Debridement Debridement -Clinical Debridement Subcutaneous Subcutaneous Subcutaneous -Post Debridement Size (cm) - Length 3.0 3.2 2.3 -Post Debridement Size (cm) - Width 0.7 0.5 0.3 -Post Debridement Size (cm) - Depth 0.1 0.1 0.1 -Total Square Cm 2.10 1.60 0.69 -Wound/Ulcer Outcome Not Healed Not Healed Not Healed -Ulcer Cleansing Rinsed/ Rinsed/ Rinsed/ Irrigated with Irrigated with Irrigated with Saline Saline Saline -Foul Odor after Cleansing No No No -Bioengineered Tissue No No No -Bleeding Controlled with Pressure Pressure Pressure -Offloading No No No -Treatment Response Procedure Procedure Procedure Tolerated Well Tolerated Well Tolerated Well Pain Scale: 0-10 Numeric Is Patient Pain Free? Yes Yes Yes Wound debrided: Left Forearm Type of Debridement: Excisional debridement Anesthesia Used: 4% Lidocaine Solution Depth: Down to and including healthy tissue, in the subcutaneous layer Percentage of wound debrided: 100 Instrument Used: 3mm curette Tissue Removed: Slough and devitalized tissue Severity: Fat Layer Exposed Amount of bleeding with debridement: Mild Bleeding Controlled with: Pressure Patient tolerated procedure well Assessment/Plan Active Problems Non-healing surgical wound (Chronic) Left Forearm. History of fasciotomy (Chronic) Assessment: Same as above. Plan: Debridement done as documented above, procedure was well tolerated. Continue Pomogran daily with adaptic over top. Increased protein intake is recommended. Single layer tubigrip for compression. His questions were answered and he was advised to call with any further questions or concerns. Follow up in 1 week.
== END 2019-05-07 23:59 ==
LOC: WC 10:00
PROVIDERS: Family Provider Family Medicine; PCP Family Medicine; Visit Provider Internal Medicine
DX: T81.89XA Other complications of procedures, not elsewhere classified, initial encounter (principal); Y83.8 Other surgical procedures as the cause of abnormal reaction of the patient, or of later complication, without mention of misadventure at the time of the procedure
CPT/HCPCS: 11042; 99213; G0463

== ENCOUNTER 2019-05-14 09:30 | Outpatient (RCR) | payer BC, SELFPAY ==
[2019-01-06 14:11] VITALS: BMI 33.5
--- NOTE | 2019-01-14 12:44 | HP.OTEVAL_ITS ---
Patient's Visit Information IRENE NIETO is a 53 year old M, referred to Occupational Therapy by Faith De Paz DO, with a diagnosis of biceps tendon repair/ edema. Date of Evaluation: 01/12/19 Occupational Therapist: EBEN Swartz/Jamie, CHT - Subjective Subjective: This 53 year old male was seen for OT eval following a right distal bicep repair, with post op fasciotomy at [facility]. He arrives with elbow blocking extension orthosis and he has the incision from wrist to elbow covered in xeroform and gauze. Pt reports pain is 9/10 took 800mg or ibprohen prior to apt. pt not feeling well states he feel like he is in a fog. 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 - Pain left 8 Pain Intensity Range: 3, 8 - Objective Objective/Observation: pt arrives with wrap on left UE and protective elbow ext orthosis, for preventing elbow ext. cue to distal biceps tendon repair. incision looks good- one seeping area at proximal incision. scar adhesions. - ROM Elbow: Right WNL left -35/90 Forearm: left supination 0/pronation Right WNL Wrist: right WNL Left 15/25 Opposition: 3 ROM Comments: limited motion. pt unable to form a composite fist at this time-. opposition to tip of IF. - Strength Strength Comments: will test at later date - Edema Elbow: right 30cm left 34cm Wrist: right 19cm left 21cm PIP: right MF 6.7 left 8.6 - Sensation Thumb: right 2.83 Index: right 2.83 Middle: right 2.83 Ring: right 2.83 Little: right 2.83 Sensation Comments: pt left hand unable to feel monofilament at 5.07 therapist will cont. 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 Pts sensation is deminished. Edema present along with healing incision with sacar adhesions. pt limited with use of left UE for ADLs and IADLS. Pt would benefit from skilled OTR/L, CHT services to return pt to a ind, level with ADLs and IADLS. Therapy will initially focus on edema, scar mtg, ROM and progress pt as able to PRE to return pt to PLOF with ADls and IADLS. with complications of compartmental syndrom and nerve compression pt will possible need extended therpay services .PT and demo understanding and agree to POC. Rehabilitation Potential: Good - Anticipated Interventions Anticipated Interventions: A/AAROM/PROM, Strengthening, Edema Control, Scar Care, Triggerpoint Release, Desensitization, Sensory Retraining, Modalities, Orthoses, Fine Motor Coord/Miller, Caregiver Training, Home Program - Visit Plan Frequency: 2-3x /Week Duration: 2 Months TEXT: Thank you for the opportunity to evaluate your patient. For Medicare and Medicare HMO plans, please review the plan of care and approve it. It will need to be FAXED BACK to us at [phone] for Medicare purposes. Please let me know if there are questions or concerns regarding this plan of care. Physician Signature: Date:
--- NOTE | 2019-02-11 17:12 | OTREVAL_ITS ---
Faith De Paz, DO, It has been my pleasure to treat IRENE NIETO over the last 8 visits for biceps tendon repair/ edema. Please see the progress note below for an update on the occupational therapy plan of care! Subjective: pt states pain continues to be a struggle- ROM of wrist and fingers are not improving Objective/Function: pt demo opposition to tip of MF- no composite fist and limited finger ext. wrist 15/35. pt demo with limited wrist and finger ROM and would benefit from static progressive stata-dyne WHFO to get better stretch daily Plan Frequency: 2-3x /Week Duration: 2 Months Plan: cont with ROM edema and pain mtg. wound care Anticipated Interventions Anticipated Interventions: A/AAROM/PROM, Strengthening, Edema Control, Scar Care, Triggerpoint Release, Desensitization, Sensory Retraining, Modalities, Orthoses, Fine Motor Coord/Miller, Caregiver Training, Home Program Please do not hesitate to contact me at [phone] by phone or Fax: if you have questions or concerns regarding this new plan of care! Sincerely, Xi Vidal, OTR/L, CHT
--- NOTE | 2019-03-12 09:40 | HP.OTREVAL ---
Faith De Paz, DO, It has been my pleasure to treat IRENE NIETO over the last 18 visits for biceps tendon repair/ edema. Please see the progress note below for an update on the occupational therapy plan of care! Subjective: pt arrives with edema golve on- pt states he was trying to use his hand to repair his van door- and his door fell off- pt states his hand took awhile and he could feel his hand/wrist tighten up- pt is using stim unit- to assist with pain-pt is unable to use pain patch due to side effects - pins/tingling is about the same- more use of hand more tingling. pt reports he is using stata-dyne WHFO 2x a day but has not noticed a change in his motion. pt reports he is still using edema glove and sure press wrap to assist with edema mtg. Objective/Function: due to complications from a left biceps tendon repair- pt demo compartmental syndrome and underwent multiple sx to increase circulation- now pt continues to have nerve pain and scar adhesions to flexors of digits and wrist- pt cont. using abhishek-splint WHFO to assist in stretching wrist and digits and home tens unit to assist. left radiology specialist strength- unable. left wrist 15/30. left forearm supination at nutral. left IF MCP 40 PIP -40/68 DIP 30. left MF MCP 40 PIP -40/65 DIP 30. Left RF MCP 45 PIP -30/65 DIP 25. Left LF 45 PIP -15/35 DIP 20. pt limited with ROM and functional motion of wrist and digits-. pt has constant pins/tingling in all digits. Pt unable to use radiology specialist for any force grasp- pt can cloth picker med. to large cone. cylinder shape Plan Frequency: 2-3x /Week Duration: 2 Months Plan: request more visits due to multiple complications and slow nerve repair, scar, edema and pain Anticipated Interventions Anticipated Interventions: A/AAROM/PROM, Strengthening, Edema Control, Scar Care, Triggerpoint Release, Desensitization, Sensory Retraining, Modalities, Orthoses, Fine Motor Coord/Miller, Caregiver Training, Home Program Please do not hesitate to contact me at [phone] by phone or if you have questions or concerns regarding this new plan of care! Sincerely, Xi Vidal, OTR/L, CHT
--- NOTE | 2019-04-22 09:52 | HP.PTEVAL ---
Patient's Visit Information IRENE NIETO is a 53 year old M referred to Physical Therapy by Faith De Paz DO with a diagnosis of Biceps Tendon Repair. Date of Evaluation: 04/21/19 Physical Therapist: Emily Mendez DPT - Visit Plan Frequency: 2-3x /Week Duration: 6 Weeks Plan: Focus on Shoulder/Elbow ROM, strength and scar management. - Subjective Findings: Had biceps repair- with compartment syndrome- ran out of OT visits- cant' feel unless its drastic difference between hot and cold. Best thing he can do is run hot water on it. The splint is to big at this point. Uses a TENS Unit for pain control. Sensation and pain always there. N/T, burning- palmar side and fingertips are hyper sensitive. Thumb is tight and painful. Tried to use KT Tape but was unable to do increase sensation. Feels like there is clamps all over the hand. Right hand dominate. Ortho in [place]. Had a nerve block last week by Dr. London and it helped the shoulder but no change in the hand. Can't lean on the elbow/shoulder it causes a sleep sensation throughout his arm/hand. No Neck pain- Shoulder- along the deltoid- still has same pain but its less- hard to lift but is now able to use it all. Has full range in the elbow flexion/extn but not sup/pro. Is not wearing the compression garment and the swelling has gone done. Still has an open wound on the forearm- is at the Wound center weekly and he does his own dressing changes at home. 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 Sleep: wakes him up- hard to get comfortable- has to lay on right side or back. PMHx: HTN Meds: losartin, hydrochlorothiaside, Neurontin, tizanodine, nortriptolene, symbalta. - Objective Posture: FH, RS, increaesed guarding of the left UE. Observation: signficant scarring below the elbow along the anterior portion of the forearm- bandage covers the open wound. Palpation: tender throughout upper trap, scapula, bicpital groove and from the elbow distal. ROM: Shoulder: WFL in all planes but reports pain at end range flexion/abduction/IR, Elbow Flexion: 145 degrees Extn: -15 degrees. Left Sup: 40 degrees, Pro: 55 degrees, Right Sup: 70 degrees Pro: full IF: cmp: 65, PIP: -35/80 DIP: 35/-10 MF: MCP: 65, PIP: 65, DIP:30 RF: MCP:55, PIP:-25/75, DIP: 40 LFL MCP:40, PIP:55. DIP: 30. Strength: Scap: poor, Shoulder: 4/5 throughout with discomfort. Elbow: 4/5 Wrist/Hand not tested due to pain. - Goals Goal 1:: Patient will be I with HEP and progression Goal Time Frame: 4-6 Weeks Goal 2:: Patient will maintain proper posture t/o tx session to demo increased scap and core s/s Goal Time Frame: 4-6 Weeks Goal 3:: Patient will demo 10 degrees of ROM increase in all deficit areas of the elbow and wrist as appropriate Goal Time Frame: 4-6 Weeks Goal 4:: Patient will report 0/10 pain in shoulder and elbow Goal Time Frame: 4-6 Weeks - Rehabilitation Potential Physical Therapy Diagnosis: Patient presents with a significant complication s/p Biceps surgery- he demonstrates decreased ROM, strength and muscular endurance leaind to incresaeed pain and decreased ability to perform ADL's Rehabilitation Potential: Fair - Anticipated Interventions Patient/Client Instruction: Educate patient on: Benefits of Fitness Program Therapeutic Exercise to Include: Strength training, Agility training, Body mechanics, Postural training, Flexibilty training, Neuromotor development, Passive ROM, Active ROM, Dynamic Lumbar Stabilization, Scapular Strength/Stabilization For the Purpose of:: To improve muscle performance and motor function Manual Therapy Techniques to Include: Scar massage, Mobilization, Functional dry needling, Soft tissue mobilization For the Purpose of:: To improve nutrient delivery to tissue, To increase oxygenation perfusion, To improve muscle performance and motor function, To increase tolerance to activity/condition/position Thank you for the opportunity to evaluate your patient. For Medicare and Medicare HMO plans, please review the plan of care and approve it. It will need to be FAXED BACK to us at [phone] for Medicare purposes. For Medicare only, by signing this I certify the plan of care. Please let me know if there are questions or concerns regarding this plan of care. Physician Signature: Date:
--- NOTE | 2019-07-02 11:20 | HP.PT.NRP ---
HP - Discharge Summary (1) - Patient Information IRENE NIETO was seen in my office for initial evaluation on 04/21/19. The following Plan of Care was established for this patient: Initial Frequency: 2-3x /Week Initial Duration: 6 Weeks - Anticipated Interventions Patient/Client Instruction: Educate patient on: Benefits of Fitness Program Therapeutic Exercise to Include: Strength training, Agility training, Body mechanics, Postural training, Flexibilty training, Neuromotor development, Passive ROM, Active ROM, Dynamic Lumbar Stabilization, Scapular Strength/Stabilization For the Purpose of:: To improve muscle performance and motor function Manual Therapy Techniques to Include: Scar massage, Mobilization, Functional dry needling, Soft tissue mobilization For the Purpose of:: To improve nutrient delivery to tissue, To increase oxygenation perfusion, To improve muscle performance and motor function, To increase tolerance to activity/condition/position This patient was last seen in our office . Pertinent comments regarding their Physical therapy will appear below: Patient has not attended Physical Therapy in over 4 weeks, appropriate for d/c at this time and return to MD for further evaluation as needed. At this point I will be discontinuing this patient from physical therapy. I would be happy to see this patient again in the future if found appropriate by the physician. Thank you! MARTELL VillanuevaT
== END 2019-05-14 19:00 | disposition home or self-care (01) ==
LOC: PT 09:30
PROVIDERS: Family Provider Family Medicine; PCP Family Medicine; Visit Provider Orthopaedic Surgery
DX: Z98.890 Other specified postprocedural states (principal)
CPT/HCPCS: 97035; 97110; 97140; 97162; 97166; 97530; 97760; 97763

== ENCOUNTER → 2019-09-17 10:04 | Outpatient (CLI) | payer BC, SELFPAY ==
[2019-09-17 13:20] LABS: Anion Gap 7 (5-15); BUN 11 mg/dL (7-18); BUN/Creat Ratio 10.9 RATIO (10-20); Calcium,Total 9.4 mg/dL (8.5-10.1); Chloride 103 mmol/L (98-107); Cholesterol 211 mg/dL (200); Creatinine, Serum 1.01 mg/dL (0.70-1.30); EST Glomerular Filtration Rate 81 mL/min (>60); Est Glom Filt Rate - Afr Amer 98 mL/min (>60); Glucose 92 mg/dL (74-106); High Density Lipoprotein 37 mg/dL; Potassium 3.8 mmol/L (3.5-5.1); Sodium Level 138 mmol/L (136-145); Triglycerides 213 mg/dL; Very Low Density Lipoprotein 43 mg/dL (5-40)
== END ==
PROVIDERS: PCP Family Medicine; Referring Provider Family Medicine; Visit Provider Family Medicine
DX: I10 Essential (primary) hypertension (principal)
CPT/HCPCS: 36415; 80048; 80061

== ENCOUNTER → 2019-10-09 10:12 | Outpatient (CLI) | payer BC, SELFPAY ==
[2019-10-09 12:46] LABS: Anion Gap 8 (5-15); BUN 12 mg/dL (7-18); BUN/Creat Ratio 12.9 RATIO (10-20); Calcium,Total 9.4 mg/dL (8.5-10.1); Chloride 99 mmol/L (98-107); Creatinine, Serum 0.93 mg/dL (0.70-1.30); EST Glomerular Filtration Rate 89 mL/min (>60); Est Glom Filt Rate - Afr Amer 108 mL/min (>60); Glucose 101 mg/dL (74-106); Potassium 3.5 mmol/L (3.5-5.1); Sodium Level 137 mmol/L (136-145)
== END ==
PROVIDERS: PCP Family Medicine; Referring Provider Family Medicine; Visit Provider Family Medicine
DX: I10 Essential (primary) hypertension (principal)
CPT/HCPCS: 36415; 80048

== ENCOUNTER 2019-12-03 08:30 | Outpatient (RCR) | payer BC, SELFPAY ==
--- NOTE | 2019-07-27 11:53 | HP.OTEVAL ---
Patient's Visit Information IRENE NIETO is a 53 year old M, referred to Occupational Therapy by Faith De Paz DO, with a diagnosis of left finger/wrist stiffness. Date of Evaluation: 07/24/19 Occupational Therapist: Xi Vidal, EBEN/Jamie, CHT - Subjective Subjective: This 53-year-old male was seen for OT eval following a right distal bicep repair 12/24/18, with post op fasciotomy at [facility]. pt has been seen in OT Prior and PT. Today he presents with concerns of nerve issues of pins/needles and burning sensation. Prior OT had pt using Hallie WHFO, FES to elicit contraction of muscle, PROM, AROM ex, elastomer for scar and pts to perform scar mobilization. pt states pain around CMC, swelling, limited movement decreases his use of his left hand for ADLs and IADLs. - ADLs Dressing: Button shirt Fasteners: Tie shoes, Buttons, Zippers, Belt Eating: Use silverware Kitchen: Peel fruits & vegetables, Open jars, Open bottle caps, Take dish out of oven, Place dish in microwave Yard: [place], Use pruners Miscellaneous: Use hand tools, Use power tools Comments: any bilateral hand task is more challenging for pt at this time. - Pain left hand 3 Pain Intensity Range: 3, 7 - Objective Objective/Observation: with pt initiating finger or wrist flex- scar pulls indicating scar adhesions - ROM Forearm: right supination 50 left 45 right pronation WFL left WFL Wrist: right 65/60 left 30/25 CMC: right 10 left +10 MP: right 55 left 35 IP: right 80 left 40 Radial Abduction: right 60 left 50 Palmar Abduction: right N left -35 ROM Comments: Left IF MCP 0/65 PIP -35/90 DIP -10/20. Left MF MCP 0/70 PIP -15/80 DIP -5/45. Left RF MCP +5/70 PIP -15/85 DIP -6/45. Left LF MCP -5/80 PIP -10/50 DIP 0/35. right IF MCP 0/85 PIP 0/105 DIP 0/75. right MF MCP 0/90 PIP 0/105 DIP 0/70. right RF MCP 0/85 PIP 0/105 DIP 0/70. right LF MCP 0/90 PIP 0/85 DIP 0/80. pt demo left composite fist at 3cm away from composite - Strength Reducing Machine Operator: right 140# left 20# Lateral Pinch: rigth 20# left 3# Tripod Pinch: right 12# left 3# - Edema Wrist: right 19.5cm left 19.5cm PIP: right MF 6.6 left 6.8 Proximal Phalanx: right 23.4cm left 23cm - Sensation Thumb: Right 2.83 left3.61 Index: right 2.83 left 3.61 Middle: right 2.83 left 3.84 Ring: right 2.83 left 3.84 Little: right 2.83 left 3.84 Sensation Comments: constant burning sensation - In-Hand Manipulation Finger to Palm Translation: Normal - Right, Unable - Left Palm to Finger Translation: Normal - Right, Unable - Left Shift: Normal - Right, Severe - Left Rotation: Normal - Right, Severe - Left - Quick DASH-Disab of Arm,Shoulder& Hand Quick DASH Score: 83.3325 - Hand/Wrist Evaluation Total Score of Pain & Functional Sections: 75 - Goals Goal:: PT will demo an increase in visitor services specialist strength by 35# to increase independent with basic occupations of daily living to return pt to PLOF by D/C. Pt will demo an increase in lateral and tripod pinch by 6# to increase pts independent with opening baggies, containers at PLOF by D/C. Goal:: Pt will demo an increase in wrist ROM equal to unaffected wrist to return pt to PLOF with grooming, dressing and home mtg tasks by D/C. Pt will demo the ability to form a composite fist to hold and receive 10 coins without dropping coins/ and coin manipulation/money mtg. tasks and ind. With manipulating fasteners for dressing by D/C. Pt will demo the ability to form a composite fist to return to performing BADLs and IADLS at PLOF by d/c. Goal:: Pt will report pain no greater than 1/10 with use of affected hand with BADLs and IADLs by d/c. Goal:: Pt will demo a increase in sensation demo by testing a decrease with semi-Juan Carlos monofilaments equal to unaffected sensory nerve by d/c Goal:: Pt will demo understanding of scar mtg. by end of 2nd session to increase tissue extensibility to limit scar adhesions and allow full tendons function by d/c. - Rehabilitation General Assessment: PT is currently s/p 7 months from sx- demo with limited ROM, strength and scar adhesions of left wrist and composite fist decreasing pts IND. with ADls, IADLs and work tasks. Pt would benefit from skilled OT services 2-3 x week for 6 weeks. Today therapist challenge pt with PRE on BTE to initiate increase in functional strength. pt brought back Hallie CAVAZOS and wants to return is as he feels it is not helping him at this time- therapist asked if pt was still using his elastomer for his scar-(he is not: therapist ed him to cont with using it. pt demo understanding) Therapist will ed. pt on desensitization, sensory re-ed along with need to continue end range stretch to increase pts ROM and functional use of left hand. pt agree to POC Rehabilitation Potential: Good - Anticipated Interventions Anticipated Interventions: A/AAROM/PROM, Strengthening, Scar Care, Desensitization, Sensory Retraining, Modalities, Orthoses, Home Program - Visit Plan Frequency: 2-3x /Week Duration: 2 Months TEXT: Thank you for the opportunity to evaluate your patient. For Medicare and Medicare HMO plans, please review the plan of care and approve it. It will need to be FAXED BACK to us at [phone] for Medicare purposes. Please let me know if there are questions or concerns regarding this plan of care. Physician Signature: Date:
--- NOTE | 2019-12-15 10:20 | OTREVAL_ITS ---
Dr. Faith De Paz, DO, It has been my pleasure to treat IRENE NIETO over the last 8 visits for left finger/wrist stiffness. Please see the progress note below for an update on the occupational therapy plan of care! Subjective: pt states most of the time he has a burning sensation mainly in palm of his hand -and pins and needle sensation on back of his hand- neurontin helps with the burning- pt states he has used a copper glove- but no sig. changes-. 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 states coin purse framer strength does limit him but he continues to use it. Objective/Function: monofilament sensation testing. right 2.83 all digits. le ft thumb 3.22 this has improved from 3.61. left IF 3.22 this has improved from 3.61. left MF 3.84 this has not changed. left RF 3.61 this has improved from 3.84. left LF 3.61 this has improved from 3.84. pts sensation is improving but still decreased sensation. left wrist 45*/30* this has improved from 30*/25*. left coin purse framer strength 25# this has improved from 20#. left lateral pinch 5# this h as improved from 3#. left tripod pinch 4# this has improved from 3#. left tip pinch 4# this has improved from no ability. Left composite first 1cm from composite fist- this improved from 3cm. left IF MCP 0/70 this improved from 0/65*PIP ROM -20/95 this improved from -35/90. left MF MCP 0/85 this improved from 0/70* PIP -10/95 this improved from -15/80. left RF MCP 85 PIP -10/ 90. left LF MCP 80 PIP -5/75. pt demo good gains in ROM and strength- pt is doing well with recovery- therapist expessed to pt he is doing well and hes done so well with recovery because he has always used his hand for daily home mtg tasks. 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 states he uses his left hand as much as possible with all tasks as shoveling, cleaning, home mtg tasks. Therapist continue to ed. pt that he has made great gains and sensory nerves will cont. to make recovery for 15-18 months. pt demo understanding. Plan Plan: will monitor pts progress as needed - therapist expressed to pt that it can take up to 15- 18 months for nerves to repair/heal - pt demo understanding. Advised pt to cont. using left UE with daily occupations. Therapist ed. pt to visual watch left hand if pt was around hot or sharp objects to prevent injury to left hand. pt demo understanding. Goals - Goals Patient Goals: Regain Mobility, Regain Strength, Use Hand/Wrist/Arm Normally Again Goal:: PT will demo an increase in coin purse framer strength by 35# to increase independent with basic occupations of daily living to return pt to PLOF by D/C. Pt will demo an increase in lateral and tripod pinch by 6# to increase pts independent with opening baggies, containers at PLOF by D/C. Goal:: Pt will demo an increase in wrist ROM equal to unaffected wrist to return pt to PLOF with grooming, dressing and home mtg tasks by D/C. Pt will demo the ability to form a composite fist to hold and receive 10 coins without dropping coins/ and coin manipulation/money mtg. tasks and ind. With manipulating fasteners for dressing by D/C. Pt will demo the ability to form a composite fist to return to performing BADLs and IADLS at PLOF by d/c. Goal:: Pt will report pain no greater than 1/10 with use of affected hand with BADLs and IADLs by d/c. Goal:: Pt will demo a increase in sensation demo by testing a decrease with semi-Juan Carlos monofilaments equal to unaffected sensory nerve by d/c Goal:: Pt will demo understanding of scar mtg. by end of 2nd session to increase tissue extensibility to limit scar adhesions and allow full tendons function by d/c. Anticipated Interventions Anticipated Interventions: A/AAROM/PROM, Strengthening, Scar Care, Desensitization, Sensory Retraining, Modalities, Orthoses, Home Program Please do not hesitate to contact me at [phone] by phone or if you have questions or concerns regarding this new plan of care! Sincerely, Xi Vidal, OTR/L, CHT
--- NOTE | 2019-12-15 10:20 | HP.OTEVAL_ITS ---
Patient's Visit Information IRENE NIETO is a 54 year old M, referred to Occupational Therapy by Dr. Faith De Paz DO, with a diagnosis of left finger/wrist stiffness. Date of Evaluation: 07/24/19 Occupational Therapist: Xi Vidal, ACR/Jamie, CHT - Subjective This 53-year-old male was seen for OT eval following a right distal bicep repair 12/24/18, with post op fasciotomy at [facility]. pt has been seen in OT Prior and PT. Today he presents with concerns of nerve issues of pins/needles and burning sensation. Prior OT had pt using Hallie WHFO, FES to elicit contraction of muscle, PROM, AROM ex, elastomer for scar and pts to perform scar mobilization. pt states pain around CMC, swelling, limited movement decreases his use of his left hand for ADLs and IADLs. - ADLs Dressing: Button shirt Fasteners: Tie shoes, Buttons, Zippers, Belt Eating: Use silverware Kitchen: Peel fruits & vegetables, Open jars, Open bottle caps, Take dish out of oven, Place dish in microwave Yard: [place], Use pruners Miscellaneous: Use hand tools, Use power tools Comments: any bilateral hand task is more challenging for pt at this time. - Pain left hand Unrated Pain Intensity Range: 3, 7 - Objective with pt initiating finger or wrist flex- scar pulls indicating scar adhesions - ROM Forearm: right supination 50 left 45 right pronation WFL left WFL Wrist: right 65/60 left 30/25 CMC: right 10 left +10 MP: right 55 left 35 IP: right 80 left 40 Radial Abduction: right 60 left 50 Palmar Abduction: right N left -35 ROM Comments: Left IF MCP 0/65 PIP -35/90 DIP -10/20. Left MF MCP 0/70 PIP - 15/80 DIP -5/45. Left RF MCP +5/70 PIP -15/85 DIP -6/45. Left LF MCP -5/80 PIP -10/50 DIP 0/35. right IF MCP 0/85 PIP 0/105 DIP 0/75. right MF MCP 0/90 PIP 0/105 DIP 0/70. right RF MCP 0/85 PIP 0/105 DIP 0/70. right LF MCP 0/90 PIP 0/85 DIP 0/80. pt demo left composite fist at 3cm away from composite - Strength Cut Off Machine Helper: right 140# left 20# Lateral Pinch: rigth 20# left 3# Tripod Pinch: right 12# left 3# - Edema Wrist: right 19.5cm left 19.5cm PIP: right MF 6.6 left 6.8 Proximal Phalanx: right 23.4cm left 23cm - Sensation Thumb: Right 2.83 left3.61 Index: right 2.83 left 3.61 Middle: right 2.83 left 3.84 Ring: right 2.83 left 3.84 Little: right 2.83 left 3.84 Sensation Comments: constant burning sensation - In-Hand Manipulation Finger to Palm Translation: Normal - Right, Unable - Left Palm to Finger Translation: Normal - Right, Unable - Left Shift: Normal - Right, Severe - Left Rotation: Normal - Right, Severe - Left - Quick DASH-Disab of Arm,Shoulder& Hand Quick DASH Score: 45.0000 - Hand/Wrist Evaluation Total Score of Pain & Functional Sections: 75 - Goals Goal:: PT will demo an increase in upholsterer limousine and hearse strength by 35# to increase independent with basic occupations of daily living to return pt to OF by D/C. Pt will demo an increase in lateral and tripod pinch by 6# to increase pts independent with opening baggies, containers at OF by D/C. Goal:: Pt will demo an increase in wrist ROM equal to unaffected wrist to return pt to PLOF with grooming, dressing and home mtg tasks by D/C. Pt will demo the ability to form a composite fist to hold and receive 10 coins without dropping coins/ and coin manipulation/money mtg. tasks and ind. With manipulating fasteners for dressing by D/C. Pt will demo the ability to form a composite fist to return to performing BADLs and IADLS at OF by d/c. Goal:: Pt will report pain no greater than 1/10 with use of affected hand with BADLs and IADLs by d/c. Goal:: Pt will demo a increase in sensation demo by testing a decrease with semi-Juan Carlos monofilaments equal to unaffected sensory nerve by d/c Goal:: Pt will demo understanding of scar mtg. by end of 2nd session to increase tissue extensibility to limit scar adhesions and allow full tendons function by d/c. - Rehabilitation General Assessment: PT is currently s/p 7 months from sx- demo with limited ROM, strength and scar adhesions of left wrist and composite fist decreasing pts IND. with ADls, IADLs and work tasks. Pt would benefit from skilled OT services 2-3 x week for 6 weeks. Today therapist challenge pt with PRE on BTE to initiate increase in functional strength. pt brought back Hallie CAVAZOS and wants to return is as he feels it is not helping him at this time- therapist asked if pt was still using his elastomer for his scar-(he is not: therapist ed him to cont with using it. pt demo understanding) Therapist will ed. pt on desensitization, sensory re-ed along with need to continue end range stretch to increase pts ROM and functional use of left hand. pt agree to POC Rehabilitation Potential: Good - Anticipated Interventions A/AAROM/PROM, Strengthening, Scar Care, Desensitization, Sensory Retraining, Modalities, Orthoses, Home Program - Visit Plan Frequency: 2-3x /Week Duration: 2 Months TEXT: Thank you for the opportunity to evaluate your patient. For Medicare and Medicare HMO plans, please review the plan of care and approve it. It will need to be FAXED BACK to us at [phone] for Medicare purposes. Please let me know if there are questions or concerns regarding this plan of care. Physician Signature: Date:
== END 2019-12-03 19:00 | disposition home or self-care (01) ==
LOC: OT 08:30
PROVIDERS: Family Provider Family Medicine; PCP Family Medicine; Referring Provider Orthopaedic Surgery; Visit Provider Orthopaedic Surgery
DX: M25.642 Stiffness of left hand, not elsewhere classified (principal); M25.632 Stiffness of left wrist, not elsewhere classified
CPT/HCPCS: 97110; 97140; 97166; 97167; 97530

== ENCOUNTER → 2020-01-13 13:42 | Outpatient (CLI) | payer SELFPAY ==
[2020-01-13 14:23] LABS: Amphetamine Urine VISTA NEGATIVE (<1000 ng/mL); Barbiturate Urine VISTA NEGATIVE (< 200 ng/mL); Benzodiazepine Urine VISTA NEGATIVE (< 200 ng/mL); Cocaine Urine VISTA NEGATIVE (< 300 ng/mL); Ecstacy Urine VISTA NEGATIVE (< 500 ng/mL); Methadone Urine VISTA NEGATIVE (< 300 ng/mL); PCP Urine VISTA NEGATIVE (< 25 ng/mL); THC Urine VISTA NEGATIVE (< 50 ng/mL); Vista UDS pH Range 7
== END ==
PROVIDERS: PCP Family Medicine; Referring Provider Anesthesiology Pain Medicine; Visit Provider Anesthesiology Pain Medicine
DX: F11.20 Opioid dependence, uncomplicated (principal)
CPT/HCPCS: 80307

== ENCOUNTER → 2020-06-08 16:33 | Outpatient (CLI) | payer SELFPAY ==
[2020-06-08 18:26] LABS: Absolute Lymphocyte Count 1.75 X10^3/uL (0.83-4.51); Absolute Neutrophil Count 4.3 X10^3/uL (2.0-7.7); Basophil# 0.05 X10^3/uL; Basophil% 0.8 % (0-1); Eosinophil# 0.06 X10^3/uL; Eosinophils% 0.9 % (0-5); Hematocrit 47.2 % (40-54); Hemoglobin 15.1 g/dL (13.0-16.5); Lymphocyte # 1.75 X10^3/ul (4.0); Lymphocyte % 26.3 % (19-41); Mean Corpuscular Hgb 27.3 pg (27.0-32.0); Mean Corpuscular Volume 85.2 fL (80-94); Mean Platelet Vol. 9.8 fl (6.2-12.0); Monocyte# 0.49 X10^3/uL; Monocyte% 7.4 % (0-10); NRBC Flagged by Analyzer 0 % (0-5); Neutrophil # 4.28 X10^3/uL (2.7-7.7); Neutrophil % 64.1 % (47-70); Platelet Count 214 K/mm3 (150-450); RBC Distribution Width CV 14.4 % (11.6-14.6); RBC Distribution Width SD 44.9 fl (35.1-43.9); Red Blood Count 5.54 M/mm3 (4.6-6.2); White Blood Count 6.7 K/mm3 (4.4-11.0)
[2020-06-08 19:12] LABS: Anion Gap 7 (5-15); BUN 17 mg/dL (7-18); BUN/Creat Ratio 16.7 RATIO (10-20); Calcium,Total 9.4 mg/dL (8.5-10.1); Chloride 105 mmol/L (98-107); Cholesterol 228 mg/dL (200); Creatinine, Serum 1.02 mg/dL (0.70-1.30); EST Glomerular Filtration Rate 80 mL/min (>60); Est Glom Filt Rate - Afr Amer 97 mL/min (>60); Glucose 99 mg/dL (74-106); High Density Lipoprotein 40 mg/dL; PSA,Total - Annual Screen 1.66 ng/mL (0.00-4.00); Potassium 3.8 mmol/L (3.5-5.1); Sodium Level 138 mmol/L (136-145); Triglycerides 186 mg/dL; Very Low Density Lipoprotein 37 mg/dL (5-40)
== END ==
LOC: MFPLAB 16:34
PROVIDERS: PCP Family Medicine; Visit Provider Family Medicine
DX: Z00.00 Encounter for general adult medical examination without abnormal findings (principal); R07.9 Chest pain, unspecified
CPT/HCPCS: 36415; 80048; 80061; 84153; 85025; G0103

== ENCOUNTER 2020-06-22 14:30 | Outpatient (RCR) | payer SELFPAY ==
--- NOTE | 2020-06-30 07:38 | HP.FCE ---
Floor (Occasional 1-33% of Day): 50# Floor (Frequent 34-66% of Day): 25# Floor (Constant 67-100% of Day): N/A Floor PDL: Medium Knee (Occasional 1-33% of Day): 50# Knee (Frequent 34-66% of Day): 25# Knee (Constant 67-100% of Day): N/A Knee PDL: Medium Waist (Occasional 1-33% of Day): 50# Waist (Frequent 34-66% of Day): 25# Waist (Constant 67-100% of Day): N/A Waist PDL: Medium Shoulder (Occasional 1-33% of Day): 45# Shoulder (Frequent 34-66% of Day): 22# Shoulder (Constant 67-100% of Day): N/A Shoulder PDL: Medium Overhead (Occasional 1-33% of Day): 45# Overhead (Frequent 34-66% of Day): 22# Overhead (Constant 67-100% of Day): N/A Overhead PDL: Medium Comments: Due to hand pain and sensation of burining tingling pain no constant lift would be recommended Bending: Frequent Ability (34-66% of day) Squatting: Frequent Ability (34-66% of day) Kneeling: Frequent Ability (34-66% of day) Reaching out: Frequent Ability (34-66% of day) Reaching up: Frequent Ability (34-66% of day) Sitting: Frequent Ability (34-66% of day) Walking: Frequent Ability (34-66% of day) Standing: Frequent Ability (34-66% of day) Duration Sedentary Sedentary Light Light Light Medium Medium Medium Heavy Very Heavy Heavy Occasional (0-33% of day) Frequent (34-66% of day) Constant (67-100% of day) 10 # Negligible Negligible 15 # 8 # Negligible 20 # 10# Negli. 35 # 18 # 7 # 50 # 25 # 10 # 75 # 100 # >100 # 38 # 50 # >50 # 15 # 20 # >20 # Height: 1.7 m Weight:: 99.79 kg Hand Dominance: right Medical History Including Restrictions: Pt was in good health until he suffered a left biceps tendon rupture in December 16, 2018 and underwent a left biceps repair December 24, 2018 and suffed compartmental syndrom undergoing open release. Pt as in hospial 11 days. Pt states he has undergone a number of therapy session to regain ROM and strength with good ability. pt states his strength has not returned and he continues to have nerve pain - buring, tingling, zingers, pt is paying out of pocket for pain mtg. pt states pain mtg is mtg his symptoms with medication of neroton, oxy as needed, and tazanidine at night to sleep and injections. Diagnoses: high blood pressure Symptoms: left hand weakness. burning. tingling. sharp shooting pains. limited ROM. numbness. pt states with increased use of left UE with daily tasks pt gets an increase burning sensation that increase sensitivity in his left hand- pt states he takes his gabapentin and wait an hour and he feels he can tolerate using hand or touch hand.(?like when your feet fall asleep from sitting to long, and that burning tingling pain gets painful as circulation is returning?). Pain: pt reports his left UE is 7/10 pt states this is more than his normal but has been out sweeping snow of sidewalk. pt states his normal average 4/10 always a sensation. 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 (one year active two years inactive while on medical leave). 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 of family. 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 pt states prior to the above job pt worked at [employer] for 7 years as a nurse. pt has been a nurse for 10 years. Behavioral: Pt cooperative throughout assessment ADLS: Pt lives with his and extended family in a ranch with a basement. Pt states he has 5 entry steps no difficulty climbing steps and has a full flight of stairs to get to the basement. Laundry is basement. pt states he has tub/shower combination no difficulty getting ion or out of bathtub. pt states he is independent with bathing and dressing. pt states difficulty with more fine tasks like using cutting his fingernails. pt reports he can perform cooking, cleaning and home mtg with compensatory joe. due to limited left commodities broker and pinch strength and sensation irritation. pt drives ind. Pt states hand feels like it is asleep and trying to wake up but gets more painful as he does more. ROM: left wrist 50/[address]. right wrist 60/[address]. right elbow 0/135 left 0/145. pt's all other ROM is WNL Strength: pt demo right shoulder, elbow wrist 5/5 left shoulder 5/5, elbow 5/5 wrist 4+/5. bilateral hip flex 4/5 bilateral quad/ham 5/5 Right Assistant Inventory Manager Strength Average: 140.66 Right Assistant Inventory Manager Strength Percentile: 98% Left Assistant Inventory Manager Strength Average: 35.66 Left Assistant Inventory Manager Strength Percentile: <7% Right Lateral Pinch Average: 15.66 Right Lateral Pinch Percentile: 10% Left Lateral Pinch Average: 8.00 Left Lateral Pinch Percentile: <10% Right Tripod Pinch Average: 13.33 Right Tripod Pinch Percentile: 10% Left Tripod Pinch Average: 4.66 Left Tripod Pinch Percentile: <10% Comments: pt demo with weak left commodities broker and pinch strength Sensation: right thumb 2.83 left 2.83. right IF 2.83 left 2.83. right MF 2.83 left 2.83. right RF 2.83 left 3.22. right LF 2.83 left 3.22 Fine Motor: 9-hole peg test. right 21.54 =50%. left 31.31=0% Balance: no noted loss of balance during assessment Bending: pt demo the ability to bend forward three times, ten times and ten times rapidly. pt can bend forward on a frequent ability. Squatting: pt demo the ability to squat three times, ten times and ten times rapidly with good ability. pt states right knee pain sharp pain with squatting but went away when the movement was stopped. Pt can squat on a frequent ability. Kneeling: pt demo with the ability to kneel three times, ten times and ten times rapidly. pt can kneel on a frequent ablity Reaching out/up: pt demo the ability to reach out/up three times, ten times and ten times rapidly. pt can reach out/up on a requent ability. Walking: Pt reports no difficulty with ambulation. pt demo good reciprocal gait patter with ambulation. pt can ambulate on a frequent ability. Standing: pt demo the ability to stand for 10 min with no expressed or apparent discomfort. pt can stand of a frequent ability. Sitting: pt demo the ability to sit for 50 min with no expressed or apparent discomfort. pt can sit on a frequent ability Climbing Stairs: pt demo the ability to ascend and descend ten steps with a reciprocal step pattern and no use of rails. Floor Lift: pt demo the ability to lift 50# from floor level- pt state he feels he could lift more but has pain in left hand at 02/14 Knee Lift: Pt demo the ability to lift 50# maximally from this level with good lift mechanics. Waist Lift: Pt demo the ability to lift 50# maximally from this level with good lift mechanics. Shoulder Lift: Pt demo the ability to lift 45# maximally from this level with good lift mechanics. Pt used handles on boxes and used a general arm wrap around box to lift. Pt states he feels more comfortable with wrapping his arms around the box as to get a better handle on the box feel I may dropp the box if I use my hand Overhead Lift: Pt demo the ability to lift 45# maximally from this level with good lift mechanics. Pt used handles on boxes and used a general arm wrap around box to lift. Pt states he feels more comfortable with wrapping his arms around the box as to get a better handle on the box feel I may dropp the box if I use my hand Carrying: pt demo the ability to carry 35# for 40 feet with good ability, pt used full arm wrap as pt feels he can hold onto box and able to keep it close to his body. Comments: pt use of lifting with good lifting mechanics- pt c/o a buring pain 03/17 pt states a feeling of tightness around his wrist/hand. Pt reported increase in left hand pain- pt states typically he can mtg. symptoms to a tolerant level during the day when he can rest or limit use of left hand with tasks.
--- NOTE | 2020-06-30 07:38 | HP.OTFCE.D ---
FCE D/C Summary - Discharge IRENE NIETO was seen for a one time visit for an FCE on 06/22/20 and is discharged.
== END 2020-06-22 19:00 | disposition home or self-care (01) ==
LOC: OT 14:30
PROVIDERS: PCP Family Medicine; Referring Provider Anesthesiology Pain Medicine; Visit Provider Anesthesiology Pain Medicine
DX: M25.522 Pain in left elbow (principal)
CPT/HCPCS: 97750

== ENCOUNTER → 2021-07-05 09:59 | Outpatient (CLI) | payer OTHER, SELFPAY ==
[2021-07-05 12:49] LABS: Anion Gap 7 (5-15); BUN 15 mg/dL (7-18); BUN/Creat Ratio 14.9 RATIO (10-20); Calcium,Total 9.4 mg/dL (8.5-10.1); Chloride 104 mmol/L (98-107); Cholesterol 259 mg/dL (200); Creatinine, Serum 1.01 mg/dL (0.70-1.30); EST Glomerular Filtration Rate 81 mL/min (>60); Est Glom Filt Rate - Afr Amer 98 mL/min (>60); Glucose 97 mg/dL (74-106); High Density Lipoprotein 43 mg/dL; PSA,Total - Annual Screen 2.43 ng/mL (0.00-4.00); Sodium Level 139 mmol/L (136-145); Triglycerides 154 mg/dL; Very Low Density Lipoprotein 31 mg/dL (5-40)
== END ==
PROVIDERS: PCP Family Medicine; Visit Provider Family Medicine
DX: Z00.00 Encounter for general adult medical examination without abnormal findings (principal); I10 Essential (primary) hypertension
CPT/HCPCS: 36415; 80048; 80061; 84153; G0103

== ENCOUNTER 2021-08-17 09:59 | Outpatient (CLI) | payer MEDICAID, SELFPAY ==
--- NOTE | 2021-08-17 10:05 | ECHOD_ITS ---
Reason For Study: CHEST PAIN Procedure This was a 2D Doppler, Color Flow transthoracic echocardiogram. The study was technically difficult. Exam performed in department. Left Ventricle Based upon the 2D echocardiographic and contrast enhanced images obtained there appears to be grossly normal left ventricular size, wall motion, and systolic function. The estimated ejection fraction is 55 %. Diastolic function is indeterminate. Right Ventricle Normal RV size. Normal systolic function. Atria Normal left atrium. Normal right atrium. No doppler evidence for ASD. Mitral Valve There is no mitral annular calcification. Normal mitral valve. Tricuspid Valve Normal tricuspid valve. Aortic Valve Trisinus/trileaflet aortic valve. The aortic valve is not well visualized. Pulmonic Valve The pulmonic valve is not well visualized. Great Vessels Normal sized aortic root. Pericardium/Pleural No pericardial effusion. MMode/2D Measurements & Calculations LVIDd: 4.5 cm IVSd: 0.97 cm Ao root diam: 2.9 cm LVIDs: 3.0 cm LVPWd: 1.1 cm RVDd: 3.1 cm FS: 32.6 % LAV(MOD-bp): 37.3 ml LA A4 area: 12.5 cm2 LA dimension(2D): 3.8 cm LAV(MOD-bp) Indexed: 17.5 ml/m2 LAV(MOD-sp2): 42.5 ml LAV(MOD-sp4): 30.4 ml RA A4 area: 11.6 cm2 Time Measurements MV dec time: 0.18 sec Doppler Measurements & Calculations MV E max lencho: 92.5 cm/sec Lat Peak E' Lencho: 11.4 cm/sec Med Peak E' Lencho: 9.6 cm/sec MV A max lencho: 80.6 cm/sec E/E' lat: 8.1 E/E' med: 9.7 MV E/A: 1.1 Ao V2 max: 128.3 cm/sec LV V1 max: 103.2 cm/sec PA V2 max: 115.1 cm/sec Ao max P.6 mmHg LV V1 max P.3 mmHg ECHO/Echo Complete Interpretation Summary The study was technically difficult. Based upon the 2D echocardiographic and contrast enhanced images obtained there appears to be grossly normal left ventricular size, wall motion, and systolic function. The estimated ejection fraction is 55 %. Diastolic function is indeterminate. Ordering Physician: Luis Enrique John Referring Physician: Luis Enrique Napier Performed By: Selam Gan, YELENA, RVT
--- NOTE | 2021-08-17 10:05 | RDU_ITS ---
Reason For Study: HTN Right Renal Artery Left Renal Artery Right renal artery ostium Left renal artery ostium 93.8/23.8 152.7/42.7 RSV/EDV. PSV/EDV. Right renal artery proximal Left renal artery proximal PSV/EDV 107.4/29.8 PSV/EDV. 104.2/26.4 . Right renal artery mid 126.8/33.0 Left renal artery mid 83.4/23.8 PSV/EDV. PSV/EDV . Right renal artery distal 96.3/34.2 Left renal artery distal 140.4/54.9 PSV/EDV. PSV/EDV. Right Renal Parenchyma Left Renal Parenchyma Upper Pole Medula 49.5/21.0 Left upper pole medulla 40.4/18.4 PSV/EDV. PSV/EDV . Right upper pole medulla EDR .42 . Left upper pole medulla EDR .46 . Right upper pole medulla R.I. .58 . Left upper pole medulla R.I. .54 . Upper Jamie Cortx 39.1/13.2 PSV/EDV. UP Cortex 30.0/13.2 PSV/EDV. Right upper pole cortex EDR .34 . Left upper pole cortex EDR .44 . Right upper pole cortex R.I. .66 . Left upper pole cortex R.I. .56 . Right lower Pole medulla 39.1/14.5 Left lower Pole medulla 35.2/14.5 PSV/EDV . PSV/EDV . Right lower pole medulla EDR .37 . Left lower pole medulla EDR .41 . Right lower pole medulla R.I. .63 . Left lower pole medulla R.I. .59 . Lower Pole Cortex 31.3/9.3 PSV/EDV. Lower Pole Cortx 26.2/9.3 PSV/EDV. Right lower pole cortex EDR .3 . Left lower pole cortex EDR .36 . Right lower pole cortex R.I. .7 . Left lower pole cortex R.I. .64 . Right Renal Hilar Left Renal Hilar Right Hilar avg 55.9/17.1 PSV/EDV. LT Hilar avg 66.3/26.2 PSV/EDV . Right hilar acceleration time 40 Left hilar acceleration time 20 m/sec. m/sec. Right Renal Dimensions Left Renal Dimensions Right kidney size 10.0 cm . Left kidney size 10.55 cm . Right cortical dimension 1.81 cm . Left cortical dimension 1.34 cm . Aorta Proximal abdominal aorta 1.54 x 1.54 cm . Proximal abdominal aorta peak systolic velocity is 103.6 cm/sec . Distal abdominal aorta 1.35 x 1.37 cm . Distal abdominal aorta peak systolic velocity is 125.5 cm/sec . Normal renal veins bilat. VL/Renal Artery Duplex Ultrasound Interpretation Summary Lateral renal arteries with less than 60 percent stenosis. Ordering Physician: Luis Enrique John Performed By: Hubert Gavin RVT
--- NOTE | 2021-08-17 19:16 | STRESSREP_ITS ---
Stress Test Report Date: 08-17-2021 Procedure: Exercise tolerance test Indications: Chest pain; abnormal ECG Consent: Per the patient Procedure: The patient exercised on a Damien protocol for 9 minutes completing Stage III achieving a peak heart rate of 157 bpm (96% predicted maximal heart rate) with a peak blood pressure 188/76 mmHg and a peak MET capacity of approximately 10 MET's. The baseline ECG demonstrated normal sinus rhythm; incomplete right bundle branch block. The peak exercise ECG demonstrated with no obvious ECG changes. There were no obvious cardiac dysrhythmias pretest, during exercise, or recovery. The functional capacity was considered good. The patient had no complaint of chest discomfort during exercise or recovery. The examination was discontinued secondary to leg discomfort and dyspnea. Impression: 1. Technically adequate (percent predicted maximal heart rate greater than 85%) exercise tolerance test 2. Peak exercise ECG with no obvious ECG changes 3. There were no cardiac dysrhythmias during exercise or recovery This note was generated with [employer] software. It may contain incorrect words, spelling, and punctuation that were not noted in checking the note before signing.
== END 2021-08-17 23:59 | disposition home or self-care (01) ==
LOC: CVS 10:02
PROVIDERS: PCP Family Medicine; Referring Provider Family Medicine; Visit Provider Family Medicine
DX: R07.89 Other chest pain (principal); E78.2 Mixed hyperlipidemia; I10 Essential (primary) hypertension
CPT/HCPCS: 93017; 93306; 93975

== ENCOUNTER 2021-10-02 11:10 | Outpatient (CLI) | payer MEDICAID, SELFPAY ==
[2021-10-02 13:07] LABS: ALB/GLOB Ratio 1.4 RATIO (0.9-2.4); AST(SGOT) 29 U/L (15-37); Alanine Aminotransfer ALT/SGPT 42 U/L (16-61); Albumin, Serum 4.3 g/dL (3.2-5.0); Alkaline Phosphatase 96 U/L (45-117); Anion Gap 8 (5-15); BUN 14 mg/dL (7-18); BUN/Creat Ratio 16.9 RATIO (10-20); Chloride 105 mmol/L (98-107); Cholesterol 197 mg/dL (200); Creatinine, Serum 0.83 mg/dL (0.70-1.30); EST Glomerular Filtration Rate 101 mL/min (>60); Est Glom Filt Rate - Afr Amer 123 mL/min (>60); Glucose 94 mg/dL (74-106); High Density Lipoprotein 50 mg/dL; Potassium 4.1 mmol/L (3.5-5.1); Protein, Total 7.3 g/dL (6.4-8.2); Sodium Level 139 mmol/L (136-145); Triglycerides 80 mg/dL; Very Low Density Lipoprotein 16 mg/dL (5-40)
== END 2021-10-02 23:59 | disposition home or self-care (01) ==
LOC: MFPLAB 11:11
PROVIDERS: PCP Family Medicine; Visit Provider Family Medicine
DX: I10 Essential (primary) hypertension (principal)
CPT/HCPCS: 36415; 80053; 80061

== ENCOUNTER → 2021-11-02 | Outpatient (CLI) | payer MEDICAID, SELFPAY ==
--- NOTE | 2021-11-02 10:46 | RAD_ITS ---
STUDY: X-RAY CHEST REASON FOR EXAM: Male, 56 years old. Chest Pain TECHNIQUE: PA and lateral COMPARISON: None. FINDINGS: The lungs are clear and expanded. There is no demonstrated pleural abnormality. Normal size heart. Normal mediastinum and inder. Normal visualized pulmonary arteries. Normal visualized aortic arch and descending thoracic aorta. Normal visualized thoracic spine. Normal visualized ribs, clavicles, and shoulders. There is no demonstrated abnormality of the visualized soft tissue structures of the upper abdomen. RAD/Chest PA and Lateral IMPRESSION: Normal x-ray examination of the chest. Electronically Signed: Orlin Galo MD at 0:56 EDT ,
[2021-11-02 11:19] LABS: Absolute Lymphocyte Count 1.28 X10^3/uL (0.83-4.51); Basophil# 0.04 X10^3/uL; Basophil% 0.8 % (0-1); Eosinophil# 0.05 X10^3/uL; Hematocrit 46.8 % (40-54); Lymphocyte # 1.28 X10^3/ul (0.83-4.51); Lymphocyte % 26.3 % (19-41); Mean Corp Hgb Conc 32.1 g/dL (32-36); Mean Corpuscular Volume 84.3 fL (80-94); Mean Platelet Vol. 10.1 fl (6.2-12.0); Monocyte# 0.46 X10^3/uL; Monocyte% 9.4 % (0-10); NRBC Flagged by Analyzer 0 % (0-5); Neutrophil # 3.03 X10^3/uL (2.7-7.7); Neutrophil % 62.3 % (47-70); Platelet Count 184 K/mm3 (150-450); RBC Distribution Width CV 14.5 % (11.6-14.6); RBC Distribution Width SD 44.6 fl (35.1-43.9); Red Blood Count 5.55 M/mm3 (4.6-6.2); White Blood Count 4.9 K/mm3 (4.4-11.0)
== END | disposition home or self-care (01) ==
LOC: RAD 10:44
PROVIDERS: PCP Family Medicine; Referring Provider Nurse Practitioner Gerontology; Visit Provider Nurse Practitioner Gerontology
DX: R53.83 Other fatigue (principal); R07.9 Chest pain, unspecified
CPT/HCPCS: 36415; 71046; 85025

== ENCOUNTER → 2022-04-26 | Outpatient (CLI) | payer MEDICAID, SELFPAY ==
[2022-04-26 15:40] LABS: ALB/GLOB Ratio 1.1 RATIO (0.9-2.4); AST(SGOT) 27 U/L (15-37); Alanine Aminotransfer ALT/SGPT 38 U/L (16-61); Albumin, Serum 4.2 g/dL (3.2-5.0); Alkaline Phosphatase 111 U/L (45-117); Anion Gap 7 (5-15); BUN 21 mg/dL (7-18); Calcium,Total 9.7 mg/dL (8.5-10.1); Chloride 104 mmol/L (98-107); Cholesterol 284 mg/dL (200); EST Glomerular Filtration Rate 82 mL/min (>60); Est Glom Filt Rate - Afr Amer 99 mL/min (>60); Globulin 3.8 g/dL (2.2-4.2); Glucose 103 mg/dL (74-106); High Density Lipoprotein 51 mg/dL; Potassium 4.4 mmol/L (3.5-5.1); Sodium Level 137 mmol/L (136-145); Triglycerides 111 mg/dL; Very Low Density Lipoprotein 22 mg/dL (5-40)
== END | disposition home or self-care (01) ==
LOC: MFPLAB 11:09
PROVIDERS: PCP Family Medicine; Referring Provider Family Medicine; Visit Provider Family Medicine
DX: E78.5 Hyperlipidemia, unspecified (principal)
CPT/HCPCS: 36415; 80053; 80061

== ENCOUNTER 2022-07-14 09:05 | Emergency (ER) | payer MEDICAID, SELFPAY ==
[2022-07-14 09:06] VITALS: BP 140/85; PULSE 76; RESP 17; TEMP 35.7; O2SAT 99; BMI 34.7
--- NOTE | 2022-07-14 09:24 | CT_ITS ---
INDICATION: Blunt abdominal trauma, left upper quadrant pain EXAMINATION: CT ABDOMEN AND PELVIS WITH CONTRAST - CT Abdomen And Pelvis W/ Contrast Injection TECHNIQUE: Helically acquired images were obtained of the abdomen and pelvis following IV contrast. A radiation dose optimization technique was used for this scan. IV Contrast dosage and agent: 100 cc of Isovue-370. Oral contrast: None. COMPARISON: None. FINDINGS: LOWER CHEST: Lung bases are clear. No cardiomegaly or pericardial effusion. LIVER: Homogeneous. No focal mass. GALLBLADDER AND BILIARY TREE: Small gallstones or sludge in the gallbladder. No gallbladder distension or wall edema. No intra- or extrahepatic biliary ductal dilation. PANCREAS: No focal cystic or solid mass. SPLEEN: Normal size without focal cystic or solid mass. ADRENAL GLANDS: No nodules. KIDNEYS AND URETERS: Normal renal size and position. No hydronephrosis. PERITONEUM: No ascites or free air. No other fluid collection. BOWEL: No evidence of acute appendicitis. No stomach or bowel distension. No focal inflammatory change. LYMPH NODES: No enlarged mesenteric or retroperitoneal lymph nodes. VESSELS: Aorta is non-dilated. URINARY BLADDER: Unremarkable. REPRODUCTIVE ORGANS: No pelvic masses. ABDOMINAL WALL: Small umbilical hernia containing fat. BONES: Mild degenerative changes. No demonstrated acute fracture. CT/Abdomen/Pelvis W IV Cont ONLY IMPRESSION: 1. No evidence of solid organ injury, free air or free fluid in the abdomen. 2. No focal acute inflammatory process. 3. Mild sludge in the gallbladder or small gallstones. 4. Small umbilical hernia containing fat Electronically Signed: Raffi Borges MD at 11:14 EST ,
--- NOTE | 2022-07-14 09:24 | ED.VIS.GI ---
HPI HPI - GI History of Present Illness Chief Complaint: Abd Pain Informant: patient Abdominal Pain/Flank Pain Onset: Yesterday Context: Sudden Onset Timing: Continuous Quality: Aching Location: LUQ Current Severity: Moderate Maximum Severity: Moderate Worsened by: Movement Relieved by: Remaining Still Nausea/Vomiting/Emesis GI Symptom: Negative for Nausea or Vomiting Diarrhea/Melena/Hematochezia GI Symptom: Positive for - (Has not had a bowel movement since the injury); Negative for Melena or Hematochezia Associated Symptoms Associated Symptoms: Negative for Dysuria, Frequency or Hematuria Narrative Narrative: Patient was moving a heavy 2 wheeled wheel barrel yesterday, the large round street handle went into his left upper quadrant area forcefully when he was walking with it and the wheelbarrow suddenly stopped due to getting stuck. He has been having pain in her left upper quadrant ever since. Patient has been having fevers, malaise, cough that preceded all of this and was diagnosed with influenza A after a positive swab a couple days ago. He denies any trouble breathing. [facility] Medical History Essential hypertension Impacted cerumen, right ear Influenza A Mixed hyperlipidemia Home Medications cholecalciferol (vitamin D3) 250 mcg (10,000 unit) tablet 250 mcg PO DAILY 08/03/21 [History Last Taken Unknown] magnesium 200 mg tablet 200 mg PO DAILY 08/03/21 [History Last Taken Unknown] pregabalin 75 mg capsule (Lyrica) 75 mg PO 4X/DAY 11/02/21 [History Last Taken Unknown] nortriptyline 75 mg capsule 75 mg PO DAILY 02/01/22 [History Last Taken Unknown] tizanidine 2 mg capsule (Zanaflex) 2 mg PO Q8H PRN 02/01/22 [History Last Taken Unknown] valsartan 80 mg tablet 40 mg PO DAILY 02/01/22 [History Last Taken Unknown] oseltamivir 75 mg capsule (Tamiflu) 75 mg PO BID 5 days #10 caps 07/12/22 [Rx Last Taken Unknown] Allergy/AdvReac Type Severity Reaction Status Date / Time pseudoephedrine Allergy Other Verified 07/14/22 09:06 losartan AdvReac Severe cough Verified 07/14/22 09:06 Gadolinium-MRI Contrast AdvReac Vomiting Verified 07/14/22 09:06 Medium [Gadolinium-Contrast Medium - MRI] Surgical History History of surgery on arm Hx of bursectomy Social History Smoking Status: Never smoker alcohol intake: never substance use type: does not use caffeine: Yes (occasional) Type: carbonated beverages ROS ROS ED Constitutional Constitutional ED: Reports body ache(s), fatigue and fever(s); Denies chills Eyes Eyes: Denies change in vision or diplopia ENT ENT ED: Denies rhinorrhea or sore throat Cardiovascular Cardiovascular: Denies chest pain or palpitations Respiratory/Chest Respiratory/Chest: Reports cough; Denies dyspnea Gastrointestinal Gastrointestinal: Reports abdominal pain; Denies diarrhea, nausea or vomiting Genitourinary Genitourinary ED: Denies dysuria or hematuria Musculoskeletal Musculoskeletal: Reports back pain; Denies neck pain Integumentary Denies abscess or rash Neurologic Neurologic: Denies headache(s), paresthesias or weakness Psychiatric Psychiatric: Denies anxiety or suicidal thoughts EXAM Physical Exam Const Vital Signs: 07/14/22 09:06 Temperature 96.2 F L Temperature Source Temporal Pulse Rate 76 Respiratory Rate 17 Blood Pressure 140/85 H Blood Pressure Mean 103 Pulse Ox 99 Oxygen Delivery Method Room Air Positive well nourished and well developed General Appearance ED: well developed and NAD HEENT Reports moist mucous membranes normocephalic and atraumatic Eyes PERRL and EOMs intact bilaterally Neck full ROM and supple Resp normal respiratory effort and clear to auscultation bilaterally Cardio regular rate, regular rhythm and no murmurs GI non-distended GI Narrative: Very tender in the left upper quadrant, less tender in the ribs at the costal margin without crepitance, mild involuntary guarding in the left upper quadrant. No palpable hepatosplenomegaly. No pulsatile mass. No outward signs of trauma to the abdominal wall. No Dirk sign or Sotelo Brennan sign. No other areas of abdominal tenderness. Auscultation: normoactive bowel sounds Palpation: soft Back/Spine General Back: CVA tenderness left and other FROM Extremity normal to inspection General Extremety ED: Negative for edema, pulses abnormal or tenderness General Extremity: Negative for edema or pulses abnormal Neuro oriented x3, CN's II-XII intact bilaterally, no sensory deficits noted and gait normal Sensorium / Orientation: awake and alert Motor Exam: strength 5/5 throughout Psych mental status grossly normal and thought process normal Skin no rashes or lesions noted and no wounds MDM MDM MDM Narrative Medical decision making narrative: With blunt abdominal injury and severe tenderness in the left upper quadrant, CT imaging indicated in order to rule out solid organ injury. In order to do this safely, he was given IV contrast and initially checked the labs including his renal function, and liver enzymes were obtained since there is the potential for injury to the splenic/hepatic arterial tree. All of these labs are normal, his urine shows no blood or signs of a potential kidney injury, and the CT is negative for anything acute internally. Patient was reassured, given instructions for supportive care, and reasons to return or follow-up. He is comfortable with the plan all questions answered at the bedside. Lab Data Attestation: I reviewed the patient's lab results. Labs: Laboratory Results - last 24 hr 07/14/22 07/14/22 07/14/22 09:35 09:35 09:50 WBC 3.0 L RBC 5.77 Hgb 15.8 Hct 47.9 MCV 83.0 MCH 27.4 MCHC 33.0 RDW Std Deviation 43.2 RDW Coeff of Allyson 14.3 Plt Count 141 L MPV 9.5 Immature Gran % (Auto) 0.300 Neut % (Auto) 53.8 Lymph % (Auto) 32.8 [place] % (Auto) 11.8 H Eos % (Auto) 1.0 Baso % (Auto) 0.3 Absolute Neuts (auto) 1.6 L Absolute Lymphs (auto) 0.97 Nucleated RBC % 0 Sodium 140 Potassium 4.4 Chloride 106 Carbon Dioxide 31.0 Anion Gap 3 L BUN 14 Creatinine 0.87 Estim Creat Clear Calc 77.50 Est GFR (MDRD) Af Amer 116 Est GFR (MDRD) Non-Af 96 BUN/Creatinine Ratio 16.1 Glucose 115 H Calcium 9.0 Total Bilirubin 0.40 AST 26 ALT 39 Alkaline Phosphatase 68 Total Protein 6.5 Albumin 3.3 Globulin 3.2 Albumin/Globulin Ratio 1.0 Urine Color Yellow Urine Clarity Clear Urine pH 8.0 Ur Specific [place] 1.010 Urine Protein Negative Urine Glucose (UA) Normal Urine Ketones Negative Urine Occult Blood Negative Urine Nitrite Negative Urine Bilirubin Negative Urine Urobilinogen Normal Ur Leukocyte Esterase Negative Urine RBC 0 SEEN Urine WBC 0 SEEN Ur Squamous Epith Cells 0 SEEN Urine Bacteria 0 SEEN Urine Mucus 0 SEEN Radiography Diagnostic Testing: Clinical Impression(s) from Imaging Studies Abdomen/Pelvis CT 07/14/22 09:24 IMPRESSION: 1. No evidence of solid organ injury, free air or free fluid in the abdomen. 2. No focal acute inflammatory process. 3. Mild sludge in the gallbladder or small gallstones. 4. Small umbilical hernia containing fat Electronically Signed: Raffi Borges MD at 11:14 EST , Discharge Plan Triage Chief Complaint: Abd Pain ED Provider: Jose Cornejo Dx/Rx/DC Orders Clinical Impression: Blunt injury of abdomen, Contusion of abdominal wall, Influenza A Instructions: ED Abd Injury Blunt Benign Prescriptions: No Action cholecalciferol (vitamin D3) 250 mcg (10,000 unit) tablet 250 mcg PO DAILY magnesium 200 mg tablet 200 mg PO DAILY pregabalin [Lyrica] 75 mg capsule 75 mg PO 4X/DAY valsartan 80 mg tablet 40 mg PO DAILY tizanidine [Zanaflex] 2 mg capsule 2 mg PO Q8H PRN nortriptyline 75 mg capsule 75 mg PO DAILY oseltamivir [Tamiflu] 75 mg capsule 75 mg PO BID 5 Days Qty: 10 0RF Primary Care Provider: Luis Enrique Napier Referrals: Luis Enrique Napier MD [Primary Care Provider] - (If not better in 2 weeks) Disposition Disposition: Home, Self Care
[2022-07-14 09:46] LABS: Absolute Lymphocyte Count 0.97 X10^3/uL (0.83-4.51); Absolute Neutrophil Count 1.6 X10^3/uL (2.0-7.7); Basophil# 0.01 X10^3/uL; Basophil% 0.3 % (0-1); Eosinophil# 0.03 X10^3/uL; Hematocrit 47.9 % (40-54); Hemoglobin 15.8 g/dL (13.0-16.5); Lymphocyte # 0.97 X10^3/ul (0.83-4.51); Lymphocyte % 32.8 % (19-41); Mean Corpuscular Hgb 27.4 pg (27.0-32.0); Mean Platelet Vol. 9.5 fl (6.2-12.0); Monocyte# 0.35 X10^3/uL; Monocyte% 11.8 % (0-10); NRBC Flagged by Analyzer 0 % (0-5); Neutrophil # 1.59 X10^3/uL (2.7-7.7); Neutrophil % 53.8 % (47-70); Platelet Count 141 K/mm3 (150-450); RBC Distribution Width CV 14.3 % (11.6-14.6); RBC Distribution Width SD 43.2 fl (35.1-43.9); Red Blood Count 5.77 M/mm3 (4.6-6.2)
[2022-07-14 10:02] LABS: Bacteria 0 SEEN /hpf (None Seen); Mucous, Urine 0 SEEN /hpf (<or=2+); Red Blood Cells-Urine 0 SEEN /hpf (0-5); Squamous Epithelial Cells - UA 0 SEEN /hpf (0-5); White Blood Cells 0 SEEN /hpf (0-5)
[2022-07-14] MEDS: 0.9% Normal Saline 1,000 ML 1000 ML IV (10:02)
[2022-07-14 10:04] LABS: Color, Urine Yellow (Yellow); Glucose, Dipstick Normal (Normal); Ketone-Dipstick Negative (Negative); Leukocyte Esterase-Dipstick Negative /ul (Negative); Nitrite-Dipstick Negative (Negative); Occult Blood-Urine Negative /ul (Negative); Protein-Dipstick Negative (Negative); Urine Bilirubin Dipstick Negative (Negative); Urine Clarity Clear (Clear); Urine Urobilinogen Normal (Normal)
[2022-07-14 10:15] LABS: AST(SGOT) 26 U/L (15-37); Alanine Aminotransfer ALT/SGPT 39 U/L (16-61); Albumin, Serum 3.3 g/dL (3.2-5.0); Alkaline Phosphatase 68 U/L (45-117); Anion Gap 3 (5-15); BUN 14 mg/dL (7-18); BUN/Creat Ratio 16.1 RATIO (10-20); Chloride 106 mmol/L (98-107); Creatinine, Serum 0.87 mg/dL (0.70-1.30); EST Glomerular Filtration Rate 96 mL/min (>60); Est Glom Filt Rate - Afr Amer 116 mL/min (>60); Globulin 3.2 g/dL (2.2-4.2); Glucose 115 mg/dL (74-106); Potassium 4.4 mmol/L (3.5-5.1); Protein, Total 6.5 g/dL (6.4-8.2); Sodium Level 140 mmol/L (136-145)
[2022-07-14 11:26] VITALS: BP 109/76; PULSE 111; RESP 41; O2SAT 94
== END 2022-07-14 11:30 | disposition home or self-care (01) ==
PROVIDERS: Emergency Provider Emergency Medicine; PCP Family Medicine; Visit Provider Emergency Medicine
DX: S30.1XXA Contusion of abdominal wall, initial encounter (principal); W22.8XXA Striking against or struck by other objects, initial encounter; Y93.01 Activity, walking, marching and hiking; J10.1 Influenza due to other identified influenza virus with other respiratory manifestations; I10 Essential (primary) hypertension; E78.2 Mixed hyperlipidemia; Z79.899 Other long term (current) drug therapy
CPT/HCPCS: 74177; 80053; 81001; 85025; 96360; 99283; J7030; Q9967; A4216

== ENCOUNTER → 2022-07-23 | Outpatient (CLI) | payer MEDICAID, SELFPAY ==
--- NOTE | 2022-07-23 11:15 | RAD_ITS ---
STUDY: X-RAY - UNILATERAL RIBS ( LEFT ) WITH CHEST REASON FOR EXAM: Male, 56 years old. Rib pain after injury. TECHNIQUE - RIBS: 4 view(s) of the ribs. TECHNIQUE - CHEST: Single frontal view of the chest. COMPARISON: Chest x-ray dated October 2021. FINDINGS - RIBS: Mild osteopenia diffusely. No displaced rib fracture. FINDINGS - CHEST: The lungs are clear and expanded. There is no demonstrated pleural abnormality. Normal size heart. Normal mediastinum and inder. Normal visualized pulmonary arteries. Normal visualized aortic arch and descending thoracic aorta. Normal visualized thoracic spine. Normal visualized ribs, clavicles, and shoulders. There is no demonstrated abnormality of the visualized soft tissue structures of the upper abdomen. RAD/Ribs Uni Min 3V w/PA Chest IMPRESSION: RIBS: Osteopenia with no displaced rib fracture. CHEST: Stable chest with no acute finding. Electronically Signed: Bijan Aquino, at 12:49 EST ,
== END | disposition home or self-care (01) ==
LOC: MTRAD 11:05
PROVIDERS: PCP Family Medicine; Referring Provider Family Medicine; Visit Provider Family Medicine
DX: S29.9XXA Unspecified injury of thorax, initial encounter (principal); X58.XXXA Exposure to other specified factors, initial encounter
CPT/HCPCS: 71101

== ENCOUNTER → 2023-01-23 | Outpatient (CLI) | payer MEDICAID, SELFPAY ==
[2023-01-23 13:20] LABS: Anion Gap 6 (5-15); BUN 9 mg/dL (7-18); BUN/Creat Ratio 10.8 RATIO (10-20); Calcium,Total 9.1 mg/dL (8.5-10.1); Chloride 105 mmol/L (98-107); Cholesterol 246 mg/dL (200); Creatinine, Serum 0.83 mg/dL (0.70-1.30); EST Glomerular Filtration Rate 100 mL/min (>60); Est Glom Filt Rate - Afr Amer 121 mL/min (>60); Glucose 86 mg/dL (74-106); High Density Lipoprotein 41 mg/dL; Sodium Level 137 mmol/L (136-145); Triglycerides 197 mg/dL; Very Low Density Lipoprotein 39 mg/dL (5-40)
== END | disposition home or self-care (01) ==
LOC: MFPLAB 11:03
PROVIDERS: PCP Family Medicine; Visit Provider Family Medicine
DX: I10 Essential (primary) hypertension (principal)
CPT/HCPCS: 36415; 80048; 80061

== ENCOUNTER 2023-02-03 20:10 | Emergency (ER) | payer MEDICAID, SELFPAY ==
[2023-02-03 20:11] VITALS: BP 147/90; PULSE 90; RESP 18; TEMP 36.3; O2SAT 95; BMI 32.3
--- NOTE | 2023-02-03 20:39 | EDS_ITS ---
HPI <JOSE Armenta - Last Filed: 02/03/23 21:01> History of Present Illness Chief Complaint: Bite Narrative Narrative: Patient is a 57-year-old male with history of hyperlipidemia hypertension presents to the emergency department with redness to his left forearm. Patient states he was outside all day yesterday. He thinks he got struck by something or bit by something. Patient has worsening redness and inflammation today. States is itchy and is here for evaluation. Denies any nausea or vomiting. He denies any fever or chills. Not diabetic. PFSH <JOSE Armenta - Last Filed: 02/03/23 21:01> FOR[facility]LY [facility], [facility] Medical History Essential hypertension Impacted cerumen, right ear Influenza A Mixed hyperlipidemia Home Medications cholecalciferol (vitamin D3) 250 mcg (10,000 unit) tablet 250 mcg PO DAILY 08/03/21 [History Last Taken Unknown] magnesium 200 mg tablet 200 mg PO DAILY 08/03/21 [History Last Taken Unknown] pregabalin 75 mg capsule (Lyrica) 75 mg PO 4X/DAY 11/02/21 [History Last Taken Unknown] tizanidine 2 mg capsule (Zanaflex) 2 mg PO Q8H PRN 02/01/22 [History Last Taken Unknown] valsartan 80 mg tablet 40 mg PO DAILY 02/01/22 [History Last Taken Unknown] cyclobenzaprine 10 mg tablet 10 mg PO HS 08/08/22 [History Last Taken Unknown] cephalexin 500 mg capsule 500 mg PO Q6 #28 CAPSULES 02/03/23 [Rx Last Taken Unknown] Allergy/AdvReac Type Severity Reaction Status Date / Time pseudoephedrine Allergy Other Verified 02/03/23 20:14 losartan AdvReac Severe cough Verified 02/03/23 20:14 Gadolinium-MRI Contrast AdvReac Vomiting Verified 02/03/23 20:14 Medium [Gadolinium-Contrast Medium - MRI] Surgical History History of surgery on arm Hx of bursectomy Social History Smoking Status: Never smoker alcohol intake: never substance use type: does not use caffeine: Yes (occasional) Type: carbonated beverages ROS <JOSE Armenta - Last Filed: 02/03/23 21:01> ROS ED ROS Narrative Constitutional: Negative for fever, chills, weight loss, weakness Eyes: Negative for vision loss, vision change, double vision ENT: Negative for any sore throat, ear pain, congestion Cardiovascular: Negative for any chest pain, tightness, palpitations Respiratory: Negative for any cough, sputum production, hemoptysis, dyspnea, dyspnea on exertion, orthopnea Gastrointestinal: Negative for any abdominal pain, nausea, vomiting, diarrhea, constipation, blood in stool, blood in vomit : Negative for any urinary frequency, dysuria, retention, blood in urine Muscle skeletal: Negative for any muscle joint pain, stiffness, myalgias, arthra lgias, neck pain, back pain. Positive for left forearm itching Neurological: Negative for any headache, syncope, numbness or tingling, dizziness Skin: Negative for any rashes, lumps, itching, abrasions, lacerations. Positive for redness, warmth to left forearm Psychiatric: Negative for any depression, anxiety, stress, suicidal ideation, homicidal ideation Hematologic: Negative for any easy bruising, excessive bruising, easy bleeding Allergies: Negative for any eczema, hives, rash EXAM <JOSE Armenta - Last Filed: 02/03/23 21:01> Physical Exam Narrative Exam Narrative: Vital signs reviewed. Extremities: No peripheral edema, no signs of gross trauma or deformity. Active full range of motion of all extremities. Patient does have scarring to the left forearm secondary to compartment syndrome multiple years ago. Patient does have redness to the entire forearm, it is warm to the touch. Concerning for cellulitis versus inflammatory response. No neurological focal deficits. +2 radial pulse. Neuro: Cranial nerves II through XII intact, no focal neurological deficits. Skin: Clean dry and intact with no rash, purpura, petechiae, vesicles or pustules. Backs/flank: No CVA tenderness, no midline spinal tenderness, no deformity. Psych: Normal mood and affect. No SI, HI or acute psychosis. Const Vital Signs: 02/03/23 20:11 02/03/23 20:46 Temperature 97.4 F L Temperature Source Temporal Pulse Rate 90 Respiratory Rate 18 Respiratory Effort Normal Non-Labored Respiratory Pattern Normal Blood Pressure 147/90 H Blood Pressure Mean 109 Pulse Ox 95 Oxygen Delivery Method Room Air <Dr. Manjit Nuñez, - Last Filed: 02/03/23 22:43> Physical Exam Const Vital Signs: 02/03/23 20:11 02/03/23 20:46 Temperature 97.4 F L Temperature Source Temporal Pulse Rate 90 Respiratory Rate 18 Respiratory Effort Normal Non-Labored Respiratory Pattern Normal Blood Pressure 147/90 H Blood Pressure Mean 109 Pulse Ox 95 Oxygen Delivery Method Room Air MDM <JOSE Armenta - Last Filed: 02/03/23 21:01> [facility] Treatment and Re-Evaluation :: Patient appears generally well, patient appears nontoxic, vital signs are stable. Patient presents to the emergency department for complaints of redness, warmth to the left forearm. He is concerned he might have infection from some sort of bug bite to his left forearm. Patient has no systemic symptoms. Physical examination is consistent with cellulitis, possible inflammatory spots. Patient placed on Keflex 4 times a day for 1 week. Instructed use ibuprofen, as well as Benadryl cream. All questions answered. Patient is in no distress. He was given strict return precaution to return if the redness gets worse, he develops fever chills nausea vomiting. Patient stable for discharge <Dr. Manjit Nuñez, - Last Filed: 02/03/23 22:43> [facility] Narrative Medical decision making narrative: I have personally performed a face to face assessment of the patient and have reviewed the CEE Note. I performed a substantive portion of the visit including all aspects of the following. My sims findings include: History: Patient presents with insect sting to his left forearm that occurred yesterday. Patient states the redness and swelling has gotten worse today. Patient states it feels warm over the area. Patient is concerned for infection. Patient denies any fevers or chills. Patient denies any discharge or drainage. Exam: Vital signs are stable. Patient is afebrile. Patient is in no acute distress. Skin is warm and dry. There is some mild erythema and warmth over the volar aspect of the left forearm. There is no fluctuance. There is no discharge or drainage. Radial pulses are equal bilaterally. Sensation was intact to light touch in all digits. Capillary refill was less than 2 seconds in all digits. Strength is 5/5 in the radial, median, and ulnar areas. Medical Decision Making: Patient was advised that this could be a local reaction from the insect sting. However, there is a possibility of early cellulitis as well. Patient was given a prescription for Keflex. Patient was given his first dose here. Patient was instructed to keep the area clean. Patient was instructed to follow-up with his primary care physician in 5 to 7 days. Patient understood and was agreeable with the plan. All questions were answered. Discharge Plan Triage Chief Complaint: Bite ED Midlevel Provider: Luis Enrique Mireles ED Provider: Manjit Nuñez Dx/Rx/DC Orders Clinical Impression: Cellulitis of arm, Hymenoptera sting, Cellulitis of left forearm Instructions: ED Cellulitis Prescriptions: No Action cholecalciferol (vitamin D3) 250 mcg (10,000 unit) tablet 250 mcg PO DAILY magnesium 200 mg tablet 200 mg PO DAILY pregabalin [Lyrica] 75 mg capsule 75 mg PO 4X/DAY valsartan 80 mg tablet 40 mg PO DAILY tizanidine [Zanaflex] 2 mg capsule 2 mg PO Q8H PRN cyclobenzaprine 10 mg tablet 10 mg PO HS Primary Care Provider: Luis Enrique Napier Referrals: Luis Enrique Napier MD [Primary Care Provider] - 5-7 Days Activity Restrictions/Additional Instructions: Take antibiotics until finished. Ice, elevate. Use Benadryl cream Disposition Disposition: Home, Self Care Discharge Date/Time: 02/03/23 21:41
[2023-02-03] MEDS: Cephalexin 250 MG Capsule 500 MG PO (21:18)
== END 2023-02-03 21:41 | disposition home or self-care (01) ==
PROVIDERS: Emergency Provider Emergency Medicine; PCP Family Medicine; Visit Provider Emergency Medicine
DX: L03.114 Cellulitis of left upper limb (principal); S50.862A Insect bite (nonvenomous) of left forearm, initial encounter; W57.XXXA Bitten or stung by nonvenomous insect and other nonvenomous arthropods, initial encounter; I10 Essential (primary) hypertension; E78.2 Mixed hyperlipidemia; Z79.899 Other long term (current) drug therapy
CPT/HCPCS: 99283

== ENCOUNTER → 2023-07-10 | Outpatient (CLI) | payer MEDICAID, SELFPAY ==
[2023-07-10 13:08] LABS: Anion Gap 6 (5-15); BUN 13 mg/dL (7-18); BUN/Creat Ratio 12.7 RATIO (10-20); Calcium,Total 9.7 mg/dL (8.5-10.1); Chloride 105 mmol/L (98-107); Cholesterol 263 mg/dL (200); Creatinine, Serum 1.02 mg/dL (0.70-1.30); EST Glomerular Filtration Rate 79 mL/min (>60); Est Glom Filt Rate - Afr Amer 96 mL/min (>60); Glucose 89 mg/dL (74-106); High Density Lipoprotein 45 mg/dL; PSA,Total - Annual Screen 3.26 ng/mL (0.00-4.00); Potassium 4.3 mmol/L (3.5-5.1); Sodium Level 137 mmol/L (136-145); Triglycerides 172 mg/dL; Very Low Density Lipoprotein 34 mg/dL (5-40)
== END | disposition home or self-care (01) ==
PROVIDERS: PCP Family Medicine; Referring Provider Family Medicine; Visit Provider Family Medicine
DX: Z00.00 Encounter for general adult medical examination without abnormal findings (principal)
CPT/HCPCS: 84153; 36415; 80048; 80061; G0103

== ENCOUNTER → 2023-11-11 | Outpatient (CLI) | payer MEDICAID, SELFPAY ==
[2023-11-11 12:51] LABS: ALB/GLOB Ratio 1.1 RATIO (0.9-2.4); AST(SGOT) 25 U/L (15-37); Alanine Aminotransfer ALT/SGPT 36 U/L (16-61); Albumin, Serum 3.8 g/dL (3.2-5.0); Alkaline Phosphatase 76 U/L (45-117); Anion Gap 5 (5-15); BUN 12 mg/dL (7-18); BUN/Creat Ratio 13.3 RATIO (10-20); Calcium,Total 9.3 mg/dL (8.5-10.1); Chloride 105 mmol/L (98-107); Cholesterol 233 mg/dL (200); EST Glomerular Filtration Rate 91 mL/min (>60); Est Glom Filt Rate - Afr Amer 111 mL/min (>60); Globulin 3.4 g/dL (2.2-4.2); Glucose 103 mg/dL (74-106); High Density Lipoprotein 48 mg/dL; Protein, Total 7.2 g/dL (6.4-8.2); Sodium Level 137 mmol/L (136-145); Triglycerides 110 mg/dL; Very Low Density Lipoprotein 22 mg/dL (5-40)
== END | disposition home or self-care (01) ==
LOC: MFPLAB 10:04
PROVIDERS: PCP Family Medicine; Visit Provider Family Medicine
DX: I10 Essential (primary) hypertension (principal)
CPT/HCPCS: 36415; 80053; 80061

== ENCOUNTER → 2024-03-21 | Outpatient (CLI) | payer MEDICARE, MEDICAID, SELFPAY ==
--- NOTE | 2024-03-21 07:38 | MRI_ITS ---
EXAM: MR LEFT LOWER EXTREMITY WITHOUT INTRAVENOUS CONTRAST, ANKLE CLINICAL INDICATION: osteoarthritis left hindfoot, peroneal tendonitis, left TECHNIQUE: Multiplanar and multisequence MR images of the left ankle without intravenous contrast. COMPARISON: Left foot, 11/11/2014 and left ankle, 05-25. FINDINGS: LIGAMENTS: ANTERIOR TALOFIBULAR: No significant abnormality. Intact. POSTERIOR TALOFIBULAR: No significant abnormality. Intact. ANTERIOR TIBIOFIBULAR: No significant abnormality. Intact. POSTERIOR TIBIOFIBULAR: No significant abnormality. Intact. CALCANEOFIBULAR: No significant abnormality. Intact. DELTOID: No significant abnormality. Intact. SPRING: No significant abnormality. Intact. LISFRANC: No significant abnormality. Intact. TENDONS: ACHILLES: No significant abnormality. Intact. FLEXOR: No significant abnormality. Intact. EXTENSOR: No significant abnormality. Intact. PERONEAL: No significant abnormality. Intact. TIBIALIS ANTERIOR: No significant abnormality. Intact. TIBIALIS POSTERIOR: No significant abnormality. Intact. MUSCLES: No significant abnormality. Normal bulk and signal. FLUID: There is a small subtalar joint effusion. SINUS TARSI: The sinus tarsus appears normal. TARSAL TUNNEL: No significant abnormality. PLANTAR FASCIA: Mild thickening of the median band of the plantar fascia. No significant edema. CARTILAGE: No significant abnormality. No osteochondral lesion. Articular cartilage intact. BONES/JOINTS: There is an osteochondral defect of the posterior subtalar facet measuring up to 8 mm in diameter with subjacent marrow edema. Calcaneal spur. No osteochondral lesion of the talar dome. No acute fracture or dislocation. OTHER SOFT TISSUES: No significant abnormality. MRI/Lower Ext Joint Only (Routine) IMPRESSION: 1. There is an osteochondral defect of the posterior subtalar facet measuring up to 8 mm in diameter with subjacent marrow edema. 2. There is a small subtalar joint effusion. 3. The Achilles tendon appears normal. 4. The peroneal tendons are intact and normal in appearance. 5. Likely sequela of chronic plantar fasciitis. Associated calcaneal spur. Electronically Signed: Ricky Anne DO at 22:24 EDT ,
== END | disposition home or self-care (01) ==
LOC: MRI 07:34
PROVIDERS: PCP Family Medicine; Referring Provider Podiatrist; Visit Provider Podiatrist
DX: M19.072 Primary osteoarthritis, left ankle and foot (principal); M25.572 Pain in left ankle and joints of left foot
CPT/HCPCS: 73721

== ENCOUNTER → 2024-05-11 | Outpatient (CLI) | payer MEDICARE, MEDICAID, SELFPAY ==
[2024-05-11 12:40] LABS: Absolute Lymphocyte Count 1.38 X10^3/uL (0.83-4.51); Basophil# 0.03 X10^3/uL; Basophil% 0.6 % (0-1); Eosinophil# 0.08 X10^3/uL; Eosinophils% 1.6 % (0-5); Hemoglobin 15.3 g/dL (13.0-16.5); Lymphocyte # 1.38 X10^3/ul (0.83-4.51); Lymphocyte % 27.5 % (19-41); Mean Corp Hgb Conc 31.9 g/dL (32-36); Mean Corpuscular Hgb 26.6 pg (27.0-32.0); Mean Corpuscular Volume 83.3 fL (80-94); Mean Platelet Vol. 9.8 fl (6.2-12.0); Monocyte# 0.48 X10^3/uL; Monocyte% 9.6 % (0-10); NRBC Flagged by Analyzer 0 % (0-5); Neutrophil # 3.02 X10^3/uL (2.7-7.7); Neutrophil % 60.3 % (47-70); Platelet Count 219 K/mm3 (150-450); RBC Distribution Width SD 42.7 fl (35.1-43.9); Red Blood Count 5.76 M/mm3 (4.6-6.2)
[2024-05-11 13:19] LABS: Anion Gap 8 (5-15); BUN 11 mg/dL (7-18); BUN/Creat Ratio 10.7 RATIO (10-20); Calcium,Total 9.6 mg/dL (8.5-10.1); Chloride 103 mmol/L (98-107); Cholesterol 227 mg/dL (200); Creatinine, Serum 1.03 mg/dL (0.70-1.30); EST Glomerular Filtration Rate 78 mL/min (>60); Est Glom Filt Rate - Afr Amer 95 mL/min (>60); Glucose 96 mg/dL (74-106); High Density Lipoprotein 49 mg/dL; Potassium 4.1 mmol/L (3.5-5.1); Sodium Level 136 mmol/L (136-145); Triglycerides 141 mg/dL; Very Low Density Lipoprotein 28 mg/dL (5-40)
== END | disposition home or self-care (01) ==
LOC: MFPLAB 11:10
PROVIDERS: PCP Family Medicine; Visit Provider Family Medicine
DX: Z01.818 Encounter for other preprocedural examination (principal); I10 Essential (primary) hypertension
CPT/HCPCS: 36415; 80048; 80061; 85025

== ENCOUNTER 2024-05-22 13:28 | Inpatient (IN) | payer MEDICARE, MEDICAID, SELFPAY ==
[2024-05-22] VITALS (14 sets, daily range): BP systolic 120–175; BP diastolic 83–102; PULSE 70–98; RESP 16–18; TEMP 36.2–36.7; O2SAT 94–98; BMI 33.8; BMI 33.7
--- NOTE | 2024-05-22 | FOOT_PTH ---
PATIENT: IRENE NIETO LOC: MS3 U#:[id number] AGE/SX: 58/M ROOM: [facility] RE05/22/[address]: Dr. Carlos Kirby DPM : 1965 BED: 1 DIS: 05/25/2024 SPEC #: [id number] RECD: 05/22/24 16:52 STATUS: ASTER REGabino #: [id number] ADAN: 05/22/24 00:[address]: Carlos Kirby DEPT: SURGICAL PATHOLOGY RECD BY: Colt Crump ENTERED: 05/25/24 08:01 SP TYPE: FOOT OTHR DR: MD Dr. Clare Mak MD Tissues: Foot, NOS Procedures: Decalcification bone/plaque Surgery Specimen Level IV HEADER OPERATION: Left subtalar joint fusion/arthrodesis PRE-OP DIAGNOSIS: Osteoarthritis left foot TISSUE SUBMITTED: Left foot subtalar joint MICROSCOPIC DIAGNOSIS Subtalar joint, resection: Fragments of bone with reactive and degenerative changes. 05/27/2024 MICROSCOPIC DESCRIPTION Slides are reviewed. GROSS DESCRIPTION Received in fixative is one container labeled with the patient's name and designated Left foot, subtalar joint. The specimen consists of multiple irregular fragments of caban-yellow soft tissue mixed with bone fragments that in aggregate measure 4.0 x 4.0 x 1.0 cm. The specimen is totally submitted in four cassettes after decalcification. 05/25/2024 TC:5 CPT:62520,47196
[2024-05-22] MEDS: Lactated Ringers 1,000 ML 15 ML IV (09:39)
--- NOTE | 2024-05-22 09:52 | PRE.ANES_ITS ---
ASA Classification* ASA Classification ASA Classification: 2 Assessment & Plan Anesthesia* Anesthesia Assessment Anesthesia Assessment: Discussed sedation and/or anesthesia options, risks, benefits, and alternatives with patient/parents/legal guardian/POA. Questions invited. The patient/parents/legal guardian/POA seems to understand and agrees to proceed with anesthesia plan. Reviewed the physical assessment, medical history, allergy history and patient home medications list prior to surgery/procedure/anesthetic and documented any changes. Performed airway and anesthesia risk assessments. Anesthesia Type Anesthesia Type: General Anesthesia Focused Assessment* Temperature: 98 F Pulse Rate: 75 Blood Pressure: 159/91 Respiratory Rate: 16 Pulse Ox: 98 Airway Assessment Mouth opens: >3 cm Mallampati Score: II Focused Labs Anesthesia Preop lab: CBC WBC 5.0 K/mm3 (4.4-11.0) 05/11/24 11:11 RBC 5.76 M/mm3 (4.6-6.2) 05/11/24 11:11 Hgb 15.3 g/dL (13.0-16.5) 05/11/24 11:11 Hct 48.0 % (40-54) 05/11/24 11:11 Plt Count 219 K/mm3 (150-450) 05/11/24 11:11 CHEMISTRY Potassium 4.1 mmol/L (3.5-5.1) 05/11/24 11:11 Sodium 136 mmol/L (136-145) 05/11/24 11:11 BUN 11 mg/dL (7-18) 05/11/24 11:11 Creatinine 1.03 mg/dL (0.70-1.30) 05/11/24 11:11 Glucose 96 mg/dL (74-106) 05/11/24 11:11 COAG Pre-Assessment Diagnosis/Proposed Procedure Planned Operative Procedure(s): LEFT SUBTALAR JOINT FUSION/ARTHRODESIS Anesthesia History 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 When Was Last Pacemaker Check QUESTION #4 FULL TEXT: You/Your Family Experience fever (hyperthermia) with Anesthesia Last Oral Intake Last Oral intake: Last Oral Intake NPO since 22:00 05/22/24 09:36 Meds taken in AM with sips of water? 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 Female No 05/18/24 14:24 HX of Motion Sickness Yes 05/18/24 14:24 HX of N/V After Surgery No 05/18/24 14:24 Non-Smoker Yes 05/18/24 14:24 Duration of Surgery greater Yes 05/18/24 14:24 than 60 minutes Number of Risk Factors 3 05/18/24 14:24 PONV Score Moderate Risk 05/18/24 14:24 Height & Weight Height & Weight: Anesthesia: Height & Weight Height 5 ft 8 in 05/22/24 09:36 Weight: 101 kg 05/22/24 09:36 Body Mass Index (BMI) 33.8 05/22/24 09:36 Respiratory Assessment Respiratory Assessment - coiler operator: Respiratory Tract Infection Hx - coiler operator Hx Respiratory Tract Infection No 05/18/24 14:24 STOP Sleep Apnea STOP Sleep Apnea - coiler operator: STOP Sleep Apnea - coiler operator Hx Hypertension Yes: CONTROLLED WITH MED 05/18/24 14:24 Hx Sleep Apnea No 05/18/24 14:24 CPAP No 05/18/24 14:24 BIPAP No 05/18/24 14:24 Do you snore loudly (louder Yes 05/18/24 14:24 than talking or can be heard Do you often feel tired/ No 05/18/24 14:24 fatigued/ sleepy during daytime? Has anyone observed you stop No 05/18/24 14:24 breathing during sleep? STOP Results Positive 05/18/24 14:24 QUESTION #5 FULL TEXT : Do you snore loudly (louder than talking or can be heard through closed doors)? 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 Specify any problems Hx of Preganancy in last 3 N/A 05/18/24 14:24 Months Nurse Filling Out Transfusion DSCHRIBER 05/18/24 14:24 & Questions: Date: 05/18/24 05/18/24 14:24 Time: 14:28 05/18/24 14:24 Patient unable to answer at this time (ie. confused, unrespo /Reproduction History /Reproductive History - coiler operator: /Reproductive Hx- coiler operator Hx Now No 05/18/24 14:24 Gestational Age (in weeks): EDC: Hx Hx Para Hx Section SAB No 05/18/24 14:24 Active Medications Active Medications: Current Medications Generic Name Dose Route Start Last Admin Trade Name Freq PRN Reason Stop Dose Admin Cefazolin Sodium 2 gm/ N/A 20 mls @ 400 mls/hr 05/22/24 10:30 IV 05/22/24 10:32 PREOP ONE Lactated Ringer's 1,000 mls @ 15 mls/hr 05/22/24 09:30 05/22/24 09:39 IV 05/27/24 22:49 15 mls/hr .Q48H DARRIAN Administration Protocol [facility] Medical History Wears glasses Anxiety High cholesterol Pain Back pain Non-smoker History of pain when walking History of edema History of echocardiogram History of stress test Cardiology follow-up encounter Impacted cerumen, right ear Influenza A Mixed hyperlipidemia Essential hypertension Home Medications ?Medication ?Instructions ?Recorded ?Last Taken ?Type cholecalciferol (vitamin D3) 250 250 mcg PO DAILY 08/03/21 05/21/24 History mcg (10,000 unit) tablet magnesium 200 mg tablet 200 mg PO DAILY 08/03/21 05/21/24 History pregabalin 75 mg capsule (Lyrica) 75 mg PO 4X/DAY 11/02/21 05/22/24 06:00 History tizanidine 2 mg capsule (Zanaflex) 2 mg PO Q8H PRN muscle spasticity 02/01/22 05/20/24 History valsartan 80 mg tablet 40 mg PO QHS 02/01/22 05/21/24 History vitamin B complex 1 cap PO QDAY 05/06/24 05/21/24 History ascorbic acid (vitamin C) 500 mg 500 mg PO DAILY 05/18/24 05/21/24 History tablet,extended release (C-500) cyanocobalamin-liver extract tablet 5,000 tab PO DAILY 05/18/24 05/21/24 History pitavastatin calcium 1 mg tablet 1 mg PO QHS 05/18/24 05/21/24 History Allergy/AdvReac Type Severity Reaction Status Date / Time pseudoephedrine Allergy Other Verified 05/22/24 09:31 losartan AdvReac Severe cough Verified 05/22/24 09:31 Gadolinium-MRI Contrast AdvReac Vomiting Verified 05/22/24 09:31 Medium (Gadolinium-Contrast Medium - MRI) Surgical History Hx of colonoscopy Hx of fasciotomy History of surgery on arm Hx of bursectomy Social History Smoking Status: Never smoker alcohol intake: never substance use type: does not use caffeine: Yes (occasional) Type: carbonated beverages Review of Systems (Anesthesia) ROS Narrative System reviewed and no additional complaints, except as documented.
--- NOTE | 2024-05-22 10:27 | RAD_ITS ---
HISTORY: LT SUBTALAR JOINT FUSION -- MINI. TECHNIQUE: 2 spot images. COMPARISON: XR 05/09/2018. FINDINGS: OSSEOUS STRUCTURES: Placement of 2 screws for subtalar arthrodesis. FLUOROSCOPY TIME: 332 seconds RADIATION DOSE: 3.23 mGy. RAD/Foot 2 Views IMPRESSION: Image guidance for left subtalar fusion. Electronically Signed: Sheila Galarza MD at 14:39 EST ,
[2024-05-22] MEDS: Cefazolin 2 GM in Syringe IV (10:47)
[2024-05-22] MEDS: Bupivacaine Mpf 0.5% 30 ML VIAL (11:20)
--- NOTE | 2024-05-22 13:35 | PCM.POST.ANE ---
Anesthesia: Postop Eval I Current Vital Signs Temperature: 97.2 F Pulse Rate: 72 Blood Pressure: 142/87 Respiratory Rate: 18 Pulse Ox: 95 Oxygen Delivery Method: Room Air Assessment Airway patent: Yes Spontaneous unlabored respirations: Yes Mental status: Awake and Calm nausea: No Vomiting: No Anesthesia Complication: No Fluid Hydration Crystalloid volume administer (ml): 1,000 Total IV fluid infused: 1,000 Progress Note Anesthesia document: Postop Eval 1 completed: Yes
--- NOTE | 2024-05-22 13:35 | PCM.OPRPT ---
Operative Report (Standard) Operative Information Surgery/Procedure Performed: Left subtalar joint arthrodesis and excision of os trigonum Surgeon: Carlos Kirby Date of Procedure: 05/22/24 Procedure Start Time: : Procedure Stop Time: 13:25 Pre-Operative Diagnosis: Osteoarthritis left subtalar joint, os trigonum, left Post-Operative Diagnosis: Same Select all DRAINS/GRAFTS/IMPLANTS that apply: None Type of Anesthesia: General and Local Estimated Blood Loss: 10mL Specimen collected: Yes Description of specimen(s) removed: Bone/cartilage from left subtalar joint and os trigonum Description of surgery: Indications: 58 year old gentleman with history of chronic left hindfoot pain at level of the subtalar joint despite nonsurgical care. MRI was obtained pre operatively and there were degenerative changes. Given continued limiting symptoms we discussed options and he elected to proceed with surgical intervention as noted above. This was discussed with him, reviewed possible benefits vs risks, goals, expectations and estimated healing time. The consent forms were reviewed with him and he freely signed them. No guarantees or warranties were given nor implied. Operative Procedure: The patient was brought back to the operating room. The patient was carefully placed on the operating room table in the spine position, and was carefully secured to the operating room table with a safety belt around her waist.The patient received general anesthesia per the anesthesia team. A well padded left thigh pneumatic tourniquet was applied. The patient also received 2g of Ancef for antibiotic prophylaxis. Left foot and ankle were scrubbed, prepped and draped in the usual aseptic fashion. Further attention was directed to her left foot and there was limited subtalar joint range of motion and a pes planus foot type. The left lower extremity was exsanguinated using an Esmarch bandage and the left thigh pneumatic tourniquet was inflated to 300mmHg. Using a 15 scalpel blade and longitudinal skin incision was made overlying the lateral subtalar joint from the distal tip of the fibular to the dorsal lateral midfoot. Careful dissection was completed down to the subtalar joint capsule and the capsule was incised and partially reflected to expose the joint. There was noted wearing of cartilage consistent with degenerative joint disease. The joint was distracted with a Hintermann distractor and the cartilage of the subtalar joint was completely resected using a curved osteotome and a sharp curette, the debrided cartilage was sent to pathology. The joint surfaces were drilled multiple times using a 2.5mm drill to prepped the joint surfaces for fusion. Augment was placed to the prepped joint surfaces. The joint surfaces were reapproximated into neutral position (removed hintermann) and the joint was fixated in this position using 2 x 6.5mm [place] partially threaded cannulated screws going across the joint using rigid open reduction internal fixation technique. A small skin incision was made to the posterior heel using a 15 blade for screw placement. The fusion site was rigid and there was excellent compression and bone to bone contact. There was noted to be an os trigonum and there was noted to be inflammation to the site on the MRI so it was excised. In order to excise it a skin incision was made to the lateral posterior ankle using a 15 blade, careful dissection was completed down to the os trigonum and the os trigonum was excised using an osteotome and a bone cutting rongeur. The excised os trigonum was sent with the debrided cartilage from subtalar joint as specimen. The fusion site was again checked and noted to be rigid, stable, and appropriate at this time. The site was flushed out with copious amounts of normal saline solution, the subcutaneous tissue was reapproximated using3-0 Vicryl, the skin was reapproximated using 3-0 Nylon. A total of 30mL of 0.5% Bupivacaine plain was given as a local ankle nerve block. A dressing was applied which consisted of betadine soaked adaptic, 4x4 gauze, kerlix and osmar dressing, and a well padded below knee posterior splint with heel offloaded. The pneumatic tourniquet was deflated (total time was 120 minutes) prior to splint application, and there was immediate return of arterial flow to the foot with normal temperature an CFT < 2 seconds to all toes. Of note all vital structures, including tendons (peroneal tendons, and flexor hallucis longus tendon) and neurovascular structures to the area were identified and protected as necessary during the procedure. Also intraoperative fluoroscopy was used to aid visualization of the subtalar fusion and excision of os trigonum. Screws intact in good position, excellent alignment of subtalar joint fusion site with good bone to bone contact, and confirmed excision of os trigonum. The patient tolerated the above procedure well and anesthesia well with no complications. The patient was transported from the operating room to the recovery room with vital signs stable and in good condition. Post operative orders were placed. No weightbearing left foot, keep dressing clean, dry and intact. The patient will be admitted for post operative management. Surgical Findings: See above Firestopper Technician manager endoscopy: Yes Civil Engineering Manager: Erica Tasks completed by traffic assistant: Closing and Retracting Complications Complications: No
--- NOTE | 2024-05-22 14:00 | RAD_ITS ---
HISTORY: post op. TECHNIQUE: XR Ankle Min 3 Views. COMPARISON: 05/09/2018. FINDINGS: BONES : No acute fracture identified. Placement of 2 screws for subtalar arthrodesis. Plantar calcaneal spur noted. JOINTS: No dislocation. SOFT TISSUES: Postoperative soft tissue swelling with mild air laterally. RAD/Ankle min 3 Views IMPRESSION: Satisfactory postoperative alignment of left ankle. Electronically Signed: Sheila Galarza MD at 14:40 EST ,
--- NOTE | 2024-05-22 14:00 | RAD_ITS ---
HISTORY: post op. TECHNIQUE: XR Foot Min 3 Views. COMPARISON: 11/11/2014. FINDINGS: BONES : No acute fracture identified. Fragment at the head of the first proximal phalanx. Small plantar calcaneal spur 2 screws transfix the subtalar joint. JOINTS: No dislocation. Mild pes planus again seen. SOFT TISSUES: Postoperative edema with air laterally. RAD/Foot min 3 Views IMPRESSION: Satisfactory postoperative alignment of the left foot. Electronically Signed: Sheila Galarza MD at 14:42 EST ,
--- NOTE | 2024-05-22 15:55 | CON.PCM.HO_ITS ---
Assessment & Plan Assessment/Plan (1) Arthritis of left subtalar joint: (2) HTN (hypertension): PLAN: Plan Patient is a 58-year-old male who presented [facility] on 05/22/2024 for planned podiatry procedure. Medicine consulted postoperatively for medical management. 1. Left subtalar joint osteoarthritis ? Podiatry primary. S/p left subtalar joint arthrodesis with Dr. Kirby on 05/22. Patient tolerated procedure well, no intraoperative complications reported. Pain management and DVT prophylaxis per podiatry. Follow-up a.m. CBC and BMP. 2. Hypertension ? On home valsartan 40 mg daily. Blood pressure elevated to the 160s to 170s postoperatively and patient appears fairly comfortable on exam. Will order IV hydralazine as needed for SBP greater than 170 and home valsartan restarted for tomorrow morning. 3. Neuropathy ? Continue home Lyrica 75 mg in morning and afternoon and 150 mg at night. 4. Hyperlipidemia ? Continue home statin. 5. Obesity ? BMI 33 on admit. Complicates hospital course, care and prognosis. Total clinical time spent by myself addressing the patient's medical issues, reviewing all the data, and collaborating with patient's care team: 35 minutes. HPI Consult Data Date of Consult: 05/22/24 HPI Narrative Reason for Consultation: Postoperative medical management HPI Narrative: IRENE NIETO, is a 58 M who presented to [facility] on 05/22/2024 for planned left foot procedure with podiatry. Medicine consulted postoperatively for medical management. Patient had left subtalar joint arthrodesis done by Dr. Kirby today. Tolerated procedure well, no intraoperative complications noted. I saw the patient at bedside on the floor earlier this evening. Patient was sleeping when I arrived. Noted that he was still feeling a bit fatigued and groggy but was otherwise doing well. Reported his pain was a 2-3 out of 10 in the left foot and ankle. Left leg was stabilized from the base the toes up to the upper calf with a soft cast and Nolan wrap. He denied any fevers or chills. Denied any other acute concerns at this time. [facility] Medical History Wears glasses Anxiety High cholesterol Pain Back pain Non-smoker History of pain when walking History of edema History of echocardiogram History of stress test Cardiology follow-up encounter Impacted cerumen, right ear Influenza A Mixed hyperlipidemia Essential hypertension Home Medications ?Medication ?Instructions ?Recorded ?Last Taken ?Type cholecalciferol (vitamin D3) 250 250 mcg PO DAILY 08/03/21 05/21/24 History mcg (10,000 unit) tablet magnesium 200 mg tablet 200 mg PO DAILY 08/03/21 05/21/24 History pregabalin 75 mg capsule (Lyrica) 75 mg PO 4X/DAY 11/02/21 05/22/24 06:00 History tizanidine 2 mg capsule (Zanaflex) 2 mg PO Q8H PRN muscle spasticity 02/01/22 05/20/24 History valsartan 80 mg tablet 40 mg PO QHS 02/01/22 05/21/24 History vitamin B complex 1 cap PO QDAY 05/06/24 05/21/24 History ascorbic acid (vitamin C) 500 mg 500 mg PO DAILY 05/18/24 05/21/24 History tablet,extended release (C-500) cyanocobalamin-liver extract tablet 5,000 tab PO DAILY 05/18/24 05/21/24 History pitavastatin calcium 1 mg tablet 1 mg PO QHS 05/18/24 05/21/24 History Allergy/AdvReac Type Severity Reaction Status Date / Time pseudoephedrine Allergy Other Verified 05/22/24 15:12 losartan AdvReac Severe cough Verified 05/22/24 09:31 Gadolinium-MRI Contrast AdvReac Vomiting Verified 05/22/24 09:31 Medium (Gadolinium-Contrast Medium - MRI) Surgical History Hx of colonoscopy Hx of fasciotomy History of surgery on arm Hx of bursectomy Social History Smoking Status: Never smoker alcohol intake: never substance use type: does not use caffeine: Yes (occasional) Type: carbonated beverages ROS Constitutional Constitutional: Denies chills, fatigue, fever(s) or weakness Cardiovascular Cardiovascular: Denies chest pain Respiratory/Chest Respiratory/Chest: Denies shortness of breath at rest Gastrointestinal Gastrointestinal: Denies abdominal pain Physical Exam Const alert, oriented x3 and no apparent distress Constitutional Narrative: Pleasant middle-age male, obese, mildly fatigued appearing, otherwise sitting up comfortably in bed, conversing normally, in no acute distress. General Appearance: cooperative and comfortable HEENT normocephalic, head/scalp atraumatic, hearing grossly normal bilaterally, nasal mucous membranes and turbinates normal and moist oral mucous membranes Eyes PERRL, EOMs intact bilaterally and conjunctivae normal Neck full ROM Chest inspection of chest normal Resp normal respiratory effort, normal air movement, no use of accessory muscles and clear to auscultation bilaterally Cardio regular rate, regular rhythm, no murmurs and peripheral pulses 2+ throughout GI normal to inspection, nondistended, normoactive bowel sounds, soft to palpation, non-tender and non-distended Back/Spine normal ROM Extremity Extremity Narrative: Right leg with soft cast and Nolan wrap in place from base of toes up to upper calf. Skin no rashes or lesions noted Psych mental status grossly normal Imaging Radiology Impression Foot X-Ray 05/22/24 10:27 IMPRESSION: Image guidance for left subtalar fusion. Electronically Signed: Sheila Galarza MD at 14:39 EST , Ankle X-Ray 05/22/24 14:00 IMPRESSION: Satisfactory postoperative alignment of left ankle. Electronically Signed: Sheila Galarza MD at 14:40 EST , Foot X-Ray 05/22/24 14:00 IMPRESSION: Satisfactory postoperative alignment of the left foot. Electronically Signed: Sheila Galarza MD at 14:42 EST , Charges/Coding Visit Charges Inpatient E&M: 28071 Subs Hosp L2
[2024-05-22] MEDS: oxyCODONE 5 MG Tablet 10 MG PO ×2 (16:53→23:31)
[2024-05-22] MEDS: Acetaminophen 325 MG Tablet 650 MG PO ×2 (16:53→23:31)
--- NOTE | 2024-05-22 20:42 | PCM.HP.STD ---
HPI - General General Date of Admission: 05/22/24 Chief Complaint: Left foot post op HPI Narrative IRENE NIETO, is a 58 M who presents for post op management left foot. He had left foot subtalar joint arthrodesis and excision of os trigonum without complication. He was admitted for post op management. [facility]MERLY [facility], [facility] Medical History Wears glasses Anxiety High cholesterol Pain Back pain Non-smoker History of pain when walking History of edema History of echocardiogram History of stress test Cardiology follow-up encounter Impacted cerumen, right ear Influenza A Mixed hyperlipidemia Essential hypertension Home Medications ?Medication ?Instructions ?Recorded ?Last Taken ?Type cholecalciferol (vitamin D3) 250 250 mcg PO DAILY 08/03/21 05/21/24 History mcg (10,000 unit) tablet magnesium 200 mg tablet 200 mg PO DAILY 08/03/21 05/21/24 History pregabalin 75 mg capsule (Lyrica) 75 mg PO 4X/DAY 11/02/21 05/22/24 06:00 History tizanidine 2 mg capsule (Zanaflex) 2 mg PO Q8H PRN muscle spasticity 02/01/22 05/20/24 History valsartan 80 mg tablet 40 mg PO QHS 02/01/22 05/21/24 History vitamin B complex 1 cap PO QDAY 05/06/24 05/21/24 History ascorbic acid (vitamin C) 500 mg 500 mg PO DAILY 05/18/24 05/21/24 History tablet,extended release (C-500) cyanocobalamin-liver extract tablet 5,000 tab PO DAILY 05/18/24 05/21/24 History pitavastatin calcium 1 mg tablet 1 mg PO QHS 05/18/24 05/21/24 History Allergy/AdvReac Type Severity Reaction Status Date / Time pseudoephedrine Allergy Other Verified 05/22/24 15:12 losartan AdvReac Severe cough Verified 05/22/24 09:31 Gadolinium-MRI Contrast AdvReac Vomiting Verified 05/22/24 09:31 Medium (Gadolinium-Contrast Medium - MRI) Surgical History Hx of colonoscopy Hx of fasciotomy History of surgery on arm Hx of bursectomy Social History Smoking Status: Never smoker alcohol intake: never substance use type: does not use caffeine: Yes (occasional) Type: carbonated beverages Vital Signs Vital Signs Vital Signs: 05/22/24 09:36 05/22/24 09:36 05/22/24 09:53 Temperature 98 F 98 F Temperature Source Temporal Pulse Rate 75 75 Respiratory Rate 16 16 Respiratory Pattern Normal Blood Pressure 159/91 H 159/91 H Blood Pressure Mean 113 Blood Pressure Source Monitor Blood Pressure Position Semi-Fowlers Blood Pressure Location Left Arm Baseline BP Pulse Ox 98 98 Oxygen Delivery Method Room Air 05/22/24 13:33 05/22/24 13:35 05/22/24 13:40 Temperature 97.2 F L Temperature Source Temporal Pulse Rate 72 71 73 Respiratory Rate 18 16 18 Respiratory Pattern Normal Blood Pressure 142/87 H 120/87 H 130/83 H Blood Pressure Mean 105 98 98 Blood Pressure Source Monitor Monitor Monitor Blood Pressure Position Semi-Fowlers Semi-Fowlers Semi-Fowlers Blood Pressure Location Right Arm Right Arm Right Arm Baseline BP 159/91 159/91 159/91 Pulse Ox 95 95 94 Oxygen Delivery Method Room Air Room Air Room Air 05/22/24 13:45 05/22/24 14:00 05/22/24 14:15 Temperature Temperature Source Pulse Rate 74 70 72 Respiratory Rate 16 16 16 Respiratory Pattern Blood Pressure 137/86 H 143/95 H 150/87 H Blood Pressure Mean 103 111 108 Blood Pressure Source Monitor Monitor Monitor Blood Pressure Position Semi-Fowlers Semi-Fowlers Semi-Fowlers Blood Pressure Location Right Arm Right Arm Right Arm Baseline BP 159/91 159/91 159/91 Pulse Ox 95 96 98 Oxygen Delivery Method Room Air Room Air Room Air 05/22/24 14:30 05/22/24 14:43 05/22/24 15:05 Temperature 97.7 F L 97.8 F Temperature Source Temporal Temporal Pulse Rate 76 78 73 Respiratory Rate 16 16 18 Respiratory Pattern Blood Pressure 154/102 H 157/98 H 145/83 H Blood Pressure Mean 119 117 103 Blood Pressure Source Monitor Monitor Monitor Blood Pressure Position Semi-Fowlers Semi-Fowlers Semi-Fowlers Blood Pressure Location Right Arm Right Arm Left Arm Baseline BP 159/91 159/91 Pulse Ox 96 94 98 Oxygen Delivery Method Room Air Room Air Room Air 05/22/24 17:01 11/15/24 19:01 Temperature 97.7 F L 97.8 F Temperature Source Oral Oral Pulse Rate 97 98 Respiratory Rate 16 18 Respiratory Pattern Blood Pressure 175/85 H 165/94 H Blood Pressure Mean 115 117 Blood Pressure Source Monitor Monitor Blood Pressure Position Semi-Fowlers Semi-Fowlers Blood Pressure Location Right Arm Left Arm Baseline BP Pulse Ox 95 96 Oxygen Delivery Method Room Air Room Air Weight Weight: 100.698 kg Body Mass Index (BMI) 33.7 Physical Exam Const alert, oriented x3 and no apparent distress Constitutional Narrative: Dressing/splint clean, dry and intact, CFT < 2 seconds to all toes left foot Results Imaging Radiology Impression Foot X-Ray 05/22/24 10:27 IMPRESSION: Image guidance for left subtalar fusion. Electronically Signed: Sheila Galarza MD at 14:39 EST , Ankle X-Ray 05/22/24 14:00 IMPRESSION: Satisfactory postoperative alignment of left ankle. Electronically Signed: Sheila Galarza MD at 14:40 EST , Foot X-Ray 05/22/24 14:00 IMPRESSION: Satisfactory postoperative alignment of the left foot. Electronically Signed: Sheila Galarza MD at 14:42 EST , Assessment & Plan Assessment/Plan (1) Arthritis of left subtalar joint: (2) Pain in left foot: PLAN: Plan s/p left foot subtalar joint arthrodesis and excision of os trigonum on 05/22/2024 without complication Keep dressing/splint clean, dry and intact. No weightbearing left foot, keep foot elevated. Pain management: Acetaminophen, Oxyir, Dilaudid DVT Prophylaxis: Lovenox 40mg subc daily Antibiotic Prophylaxis: Ancef 1g q 8 hours Hypertension: Hospital consult - appreciate assistance d/c planning: home once pain controlled on oral pain medication
[2024-05-22] MEDS: Cefazolin 1 GM/50 ML BAG IV (22:09)
[2024-05-22] MEDS: Atorvastatin Calcium 10 MG Tablet 5 MG PO (22:10)
[2024-05-22] MEDS: VALSARTAN 40 MG TABLET PO (22:11)
[2024-05-22] MEDS: Pregabalin 75 MG Capsule 150 MG PO (22:15)
[2024-05-22] MEDS: HYDROmorphone 1 MG/ML Syringe IV (22:15)
[2024-05-23] VITALS (7 sets, daily range): BP systolic 120–150; BP diastolic 71–81; PULSE 72–88; RESP 16–18; TEMP 36.4–36.9; O2SAT 95–98
[2024-05-23] MEDS: HYDROmorphone 1 MG/ML Syringe IV ×4 (02:54→21:17)
[2024-05-23] MEDS: Cefazolin 1 GM/50 ML BAG IV ×3 (06:17→21:04)
[2024-05-23] MEDS: oxyCODONE 5 MG Tablet 10 MG PO ×3 (06:22→18:46)
[2024-05-23] MEDS: Acetaminophen 325 MG Tablet 650 MG PO ×2 (06:23→18:46)
[2024-05-23 06:38] LABS: Absolute Lymphocyte Count 0.92 X10^3/uL (0.83-4.51); Absolute Neutrophil Count 11.4 X10^3/uL (2.0-7.7); Basophil# 0.01 X10^3/uL; Basophil% 0.1 % (0-1); Hematocrit 43.2 % (40-54); Hemoglobin 13.8 g/dL (13.0-16.5); Lymphocyte # 0.92 X10^3/ul (0.83-4.51); Lymphocyte % 6.9 % (19-41); Mean Corp Hgb Conc 31.9 g/dL (32-36); Mean Corpuscular Volume 84.4 fL (80-94); Mean Platelet Vol. 9.5 fl (6.2-12.0); Monocyte# 0.95 X10^3/uL; Monocyte% 7.1 % (0-10); NRBC Flagged by Analyzer 0 % (0-5); Neutrophil # 11.44 X10^3/uL (2.7-7.7); Neutrophil % 85.4 % (47-70); Platelet Count 195 K/mm3 (150-450); RBC Distribution Width CV 14.4 % (11.6-14.6); RBC Distribution Width SD 44.4 fl (35.1-43.9); Red Blood Count 5.12 M/mm3 (4.6-6.2); White Blood Count 13.4 K/mm3 (4.4-11.0)
[2024-05-23 07:12] LABS: ALB/GLOB Ratio 1.1 RATIO (0.9-2.4); AST(SGOT) 30 U/L (15-37); Alanine Aminotransfer ALT/SGPT 36 U/L (16-61); Albumin, Serum 3.4 g/dL (3.2-5.0); Alkaline Phosphatase 71 U/L (45-117); Anion Gap 4 (5-15); BUN 15 mg/dL (7-18); BUN/Creat Ratio 14.7 RATIO (10-20); Calcium,Total 8.9 mg/dL (8.5-10.1); Chloride 107 mmol/L (98-107); Creatinine, Serum 1.02 mg/dL (0.70-1.30); EST Glomerular Filtration Rate 79 mL/min (>60); Est Glom Filt Rate - Afr Amer 96 mL/min (>60); Estimated Creatinine Clearance 88.58 ml/min; Globulin 3.2 g/dL (2.2-4.2); Glucose 135 mg/dL (74-106); Potassium 4.5 mmol/L (3.5-5.1); Protein, Total 6.6 g/dL (6.4-8.2); Sodium Level 138 mmol/L (136-145)
[2024-05-23] MEDS: Pregabalin 75 MG Capsule PO ×2 (08:27→11:58)
--- NOTE | 2024-05-23 08:41 | PCM.PROGNOTE ---
Subjective Subjective Patient was seen this morning for follow up on left foot, he is resting comfortably in bed, he relates feels like block has worn off, he relates there is some pain but appears controlled at this time. Vitals stable. Objective Data Objective Data Vital Signs: Vital Signs Temp Pulse Resp BP Pulse Ox O2 Del Method 98.1 F 74 16 120/71 95 Room Air 05/23/24 06:28 05/23/24 06:28 05/23/24 06:28 05/23/24 06:28 05/23/24 06:28 05/23/24 06:28 Oxygen Delivery Method Room Air Weight: 100.698 kg Body Mass Index (BMI) 33.7 Intake & Output: Intake and Output for Last 24 Hours 05/21/24 05/22/24 05/23/24 23:59 23:59 23:59 Intake Total 270 / 270 650 / 650 Output Total 1150 / 1150 425 / 425 Balance -880 / -880 225 / 225 Lab / Micro Data 05/23/24 06:15 05/23/24 06:15 Labs: Laboratory Results - last 24 hr 05/23/24 06:15: WBC 13.4 H, RBC 5.12, Hgb 13.8, Hct 43.2, MCV 84.4, MCH 27.0, MCHC 31.9 L, RDW Std Deviation 44.4 H, RDW Coeff of Allyson 14.4, Plt Count 195, MPV 9.5, Immature Gran % (Auto) 0.500, Neut % (Auto) 85.4 H, Lymph % (Auto) 6.9 L, [facility] % (Auto) 7.1, Eos % (Auto) 0.0, Baso % (Auto) 0.1, Absolute Neuts (auto) 11.4 H, Absolute Lymphs (auto) 0.92, Nucleated RBC % 0, Sodium 138, Potassium 4.5, Chloride 107, Carbon Dioxide 27.0, Anion Gap 4 L, BUN 15, Creatinine 1.02, Estim Creat Clear Calc 88.58, Est GFR (MDRD) Af Amer 96, Est GFR (MDRD) Non-Af 79, BUN/Creatinine Ratio 14.7, Glucose 135 H, Calcium 8.9, Total Bilirubin 0.40, AST 30, ALT 36, Alkaline Phosphatase 71, Total Protein 6.6, Albumin 3.4, Globulin 3.2, Albumin/Globulin Ratio 1.1 Radiography Diagnostic Testing: Radiology Impression Foot X-Ray 05/22/24 10:27 IMPRESSION: Image guidance for left subtalar fusion. Electronically Signed: Sheila Galarza MD at 14:39 EST , Ankle X-Ray 05/22/24 14:00 IMPRESSION: Satisfactory postoperative alignment of left ankle. Electronically Signed: Sheila Galarza MD at 14:40 EST , Foot X-Ray 05/22/24 14:00 IMPRESSION: Satisfactory postoperative alignment of the left foot. Electronically Signed: Sheila Galarza MD at 14:42 EST , Physical Exam Const alert, oriented x3 and no apparent distress Constitutional Narrative: Dressing/splint clean, dry and intact, CFT < 2 seconds to all toes left foot, able to dorsiflex and plantarflex toes left foot, no suspicion of infection or dvt. Assessment & Plan Assessment/Plan (1) Arthritis of left subtalar joint: (2) Pain in left foot: PLAN: Plan s/p left foot subtalar joint arthrodesis and excision of os trigonum on 05/22/2024 without complication. Keep dressing/splint clean, dry and intact. No weightbearing left foot, keep foot elevated. Pain management: Acetaminophen, Oxyir, Dilaudid. DVT Prophylaxis: Lovenox 40mg subc daily. Antibiotic Prophylaxis: Ancef 1g q 8 hours. Hypertension: Hospital consult - appreciate assistance. d/c planning: will see how he does today, and possible d/c tomorrow to home if doing well and pain is controlled on oral pain medication.
[2024-05-23] MEDS: 0.9% Saline Lock 10 ML Syringe IV ×2 (10:28→16:44)
[2024-05-23] MEDS: Enoxaparin 40 MG/0.4 ML Syringe SC (10:30)
--- NOTE | 2024-05-23 11:00 | CASEMGMT ---
RN?CM?REPTILE KEEPER?CM?to room to meet with patient for initial transition planning/care coordination?assessment.?RN?CM?introduced self and role at [facility].? Pt voices understanding and consents to?assessment?at this time.? Pt resting in bed in no distress at this time.?Daughter, Bell, @ bedside and pt agreeable to her being present during assessment. Pt is A/O at this time and answers all questions appropriately.?? Care providers, pharmacy, and demographics verified/updated at this time. PCP: Dr Napier Specialists: Dr Kirby-ortho, Dr London-pain mgnt, [facility]/cardiology Preferred Pharmacy: [facility] Retail Insurance: [employer] Prescription Benefit:?yes LNOK: , Inga. Daughter, Bell. Pt has total of 6 adult children. Living Arrangements: Lives w/ and 5 grandchildren that they have custody of. They live in a one-story home w/basement. 5 steps to enter w/no railing. Independent w/ADL's. and pt share home mgnt tasks. Transportation:?Pt states drives self and states no transportation concerns at this time.? also drives. DME: States has the following DME:?They just purchased a knee scooter. They have slide boards available that were for his son after surgery. Does not have a walker. Pt states he does not think he will need one @ discharge, but states will think about it. Pt made aware, if he decides he does not want a walker @ discharge, a script can still be provided for him @ discharge, in case he changes his mind once he gets home. He voices appreciation. Pt states no need for further DME at this time.? HHC/SNF: No hx of either. Pt wishes to discharge home and denies need for HHC. He is interested in OP therapy. Made aware a script can be provided for him @ discharge and he can take to any location of choice. Pt wishes to return home and states has no concerns with going home at time of discharge. Pt voices no further concerns/needs at this time.? PLAN:??Home w/family support, discharge plans in place, script for OP therapy. Follow for possible need of Walker or provide a script for walker @ discharge. Green sheet placed on chart w/instructions for OP script and walker. PT/OT evals pending. Fazal BSN?RN?CM
[2024-05-23] MEDS: Pregabalin 75 MG Capsule 150 MG PO (21:05)
[2024-05-23] MEDS: Atorvastatin Calcium 10 MG Tablet 5 MG PO (21:05)
[2024-05-23] MEDS: VALSARTAN 40 MG TABLET PO (21:06)
[2024-05-24 03:00] VITALS: BP 149/77; PULSE 85; RESP 16; TEMP 36.7; O2SAT 97
[2024-05-24] MEDS: oxyCODONE 5 MG Tablet 10 MG PO ×3 (03:14→20:09)
[2024-05-24] MEDS: Acetaminophen 325 MG Tablet 650 MG PO ×3 (03:14→20:10)
[2024-05-24] MEDS: Cefazolin 1 GM/50 ML BAG IV (06:24)
[2024-05-24] MEDS: HYDROmorphone 1 MG/ML Syringe IV ×3 (06:32→17:12)
[2024-05-24 09:00] VITALS: PULSE 77; O2SAT 95
--- NOTE | 2024-05-24 10:05 | PCM.PN.HOSP ---
Subjective Subjective Doing well, no issues overnight Objective Data Objective Data Vital Signs: Vital Signs Temp Pulse Resp BP Pulse Ox O2 Del Method 98.1 F 85 16 149/77 H 97 Room Air 05/24/24 03:00 05/24/24 03:00 05/24/24 03:00 05/24/24 03:00 05/24/24 03:00 05/24/24 03:00 Oxygen Delivery Method Room Air Weight: 222 lb Body Mass Index (BMI) 33.7 Intake & Output: Intake and Output for Last 24 Hours 05/23/24 05/24/24 05/25/24 03:59 03:59 03:59 Intake Total 270 / 270 2850 / 2850 50 / 50 Output Total 1150 / 1150 1974 Balance -880 / -880 875 / 875 50 / 50 Lab / Micro Data 05/23/24 06:15 05/23/24 06:15 Physical Exam Narrative General: Alert, Oriented x3, Cooperative, No apparent distress HEENT: Atraumatic, PERRLA, EOMI, Normocephalic Oral: Moist Mucosa Neck: Supple, No JVD Lungs: Diminished, Normal air movement, No rhonchi, No wheeze, No rales Cardiovascular: Regular rate, Regular Rhythm, Normal S1, Normal S2, No murmurs Abdomen: Soft, Non Tender, Non-Distended, No Hepato-splenomegaly Extremities: No edema, Capillary Refill Less than 3 Seconds Skin: No rashes, No breakdown, incision CDI Musculoskeletal: No Tenderness to Palpation of Joints or Extremities Neurological: No focal neurological deficits, Motor Exam 5/5 strength throughout, Sensory exam intact to light touch and pain Psych/Mental Status: Normal Affect, Appropriate Assessment & Plan Assessment/Plan (1) Arthritis of left subtalar joint: (2) HTN (hypertension): PLAN: Plan 1. Left subtalar joint osteoarthritis ? Podiatry primary. S/p left subtalar joint arthrodesis with Dr. Kirby on 05/22. Patient tolerated procedure well, no intraoperative complications reported. Pain management and DVT prophylaxis per podiatry. Follow-up a.m. CBC and BMP. ? Medically stable for discharge 2. Hypertension ? On home valsartan 40 mg daily. Blood pressure elevated to the 160s to 170s postoperatively and patient appears fairly comfortable on exam. Will order IV hydralazine as needed for SBP greater than 170 and home valsartan restarted for tomorrow morning. ? Creatinine is stable, continue with his home valsartan on discharge 3. Neuropathy ? Continue home Lyrica 75 mg in morning and afternoon and 150 mg at night. 4. Hyperlipidemia ? Continue home statin. 5. Obesity ? BMI 33 on admit. Complicates hospital course, care and prognosis. Charges/Coding Visit Charges Inpatient E&M: 84402 Subs Hosp L2
[2024-05-24] MEDS: Pregabalin 75 MG Capsule PO ×2 (10:20→13:30)
[2024-05-24] MEDS: Enoxaparin 40 MG/0.4 ML Syringe SC (10:23)
[2024-05-24] MEDS: Lactated Ringers 1,000 ML 15 ML IV (10:23)
[2024-05-24 10:30] VITALS: BP 124/76; PULSE 77; RESP 14; TEMP 36.6; O2SAT 95
[2024-05-24] MEDS: 0.9% Saline Lock 10 ML Syringe IV (13:17)
--- NOTE | 2024-05-24 14:30 | PCM.PROGNOTE ---
Subjective Subjective Patient was seen today for follow up. He relates he does have pain to left foot surgical site, he relates oxycodine and acetaminophen does not help much but does find relief with Dilaudid. No fevers, chills, nausea, vomiting, shortness of breath, chest pain, or calf pain. Objective Data Objective Data Vital Signs: Vital Signs Temp Pulse Resp BP Pulse Ox O2 Del Method 97.9 F 77 14 124/76 H 95 Room Air 05/24/24 10:30 05/24/24 10:30 05/24/24 10:30 05/24/24 10:30 05/24/24 10:30 05/24/24 10:30 Oxygen Delivery Method Room Air Weight: 100.698 kg Body Mass Index (BMI) 33.7 Intake & Output: Intake and Output for Last 24 Hours 05/22/24 05/23/24 05/24/24 23:59 23:59 23:59 Intake Total 270 / 270 2300 / 2850 1331 / 1331 Output Total 1150 / 1150 1575 / 1975 400 / 400 Balance -880 / -880 725 / 875 931 / 931 Lab / Micro Data 05/23/24 06:15 05/23/24 06:15 Physical Exam Const alert, oriented x3 and no apparent distress Constitutional Narrative: Dressing/splint clean, dry and intact, CFT < 2 seconds to all toes left foot, able to dorsiflex and plantarflex toes left foot, no suspicion of infection, compartment syndrome, or dvt. Assessment & Plan Assessment/Plan (1) Arthritis of left subtalar joint: (2) Pain in left foot: PLAN: Plan s/p left foot subtalar joint arthrodesis and excision of os trigonum on 05/22/2024 without complication. Keep dressing/splint clean, dry and intact. No weightbearing left foot, keep foot elevated. Pain management: Acetaminophen, Oxyir, Dilaudid. DVT Prophylaxis: Lovenox 40mg subc daily. Antibiotic Prophylaxis: Ancef 1g q 8 hours - completed and discontinued. Hypertension: Hospital consult - appreciate assistance. d/c planning: continued post op pain, not ready for d/c today, possible d/c tomorrow once pain is controlled on oral pain medication.
[2024-05-24 15:34] LABS: Absolute Neutrophil Count 5.5 X10^3/uL (2.0-7.7); Basophil# 0.04 X10^3/uL; Basophil% 0.5 % (0-1); Eosinophil# 0.13 X10^3/uL; Eosinophils% 1.6 % (0-5); Hematocrit 42.1 % (40-54); Lymphocyte % 21.6 % (19-41); Mean Corp Hgb Conc 30.9 g/dL (32-36); Mean Corpuscular Hgb 26.7 pg (27.0-32.0); Mean Corpuscular Volume 86.4 fL (80-94); Mean Platelet Vol. 9.1 fl (6.2-12.0); Monocyte# 0.81 X10^3/uL; Monocyte% 9.7 % (0-10); NRBC Flagged by Analyzer 0 % (0-5); Neutrophil # 5.49 X10^3/uL (2.7-7.7); Neutrophil % 65.9 % (47-70); Platelet Count 175 K/mm3 (150-450); RBC Distribution Width CV 14.9 % (11.6-14.6); RBC Distribution Width SD 47.7 fl (35.1-43.9); Red Blood Count 4.87 M/mm3 (4.6-6.2); White Blood Count 8.3 K/mm3 (4.4-11.0)
[2024-05-24 15:48] LABS: Anion Gap 2 (5-15); BUN 17 mg/dL (7-18); BUN/Creat Ratio 17.3 RATIO (10-20); Calcium,Total 8.6 mg/dL (8.5-10.1); Chloride 106 mmol/L (98-107); Creatinine, Serum 0.98 mg/dL (0.70-1.30); EST Glomerular Filtration Rate 82 mL/min (>60); Est Glom Filt Rate - Afr Amer 100 mL/min (>60); Glucose 116 mg/dL (74-106); Potassium 3.8 mmol/L (3.5-5.1); Sodium Level 138 mmol/L (136-145)
[2024-05-24 16:00] VITALS: BP 158/93; PULSE 86; RESP 16; TEMP 36.4; O2SAT 97
[2024-05-24 20:07] VITALS: BP 171/90; PULSE 90; RESP 18; TEMP 37.2; O2SAT 94
[2024-05-24] MEDS: Atorvastatin Calcium 10 MG Tablet 5 MG PO (20:09)
[2024-05-24] MEDS: Pregabalin 75 MG Capsule 150 MG PO (20:09)
[2024-05-24] MEDS: VALSARTAN 40 MG TABLET PO (20:09)
[2024-05-25] MEDS: HYDROmorphone 1 MG/ML Syringe IV (00:02)
[2024-05-25] MEDS: 0.9% Saline Lock 10 ML Syringe IV (00:02)
[2024-05-25 03:30] VITALS: BP 153/83; PULSE 85; RESP 18; TEMP 36.4; O2SAT 95
[2024-05-25] MEDS: oxyCODONE 5 MG Tablet 10 MG PO ×3 (06:39→14:44)
[2024-05-25] MEDS: Acetaminophen 325 MG Tablet 650 MG PO ×2 (06:39→14:44)
[2024-05-25 08:31] VITALS: BP 146/75; PULSE 80; RESP 18; TEMP 36.7; O2SAT 95
[2024-05-25] MEDS: Pregabalin 75 MG Capsule PO ×2 (08:44→11:45)
[2024-05-25] MEDS: Enoxaparin 40 MG/0.4 ML Syringe SC (08:45)
[2024-05-25 14:35] VITALS: BP 148/87; PULSE 89; RESP 18; TEMP 36.7; O2SAT 97
[2024-05-25 14:46] VITALS: BP 142/87; PULSE 72; RESP 18; TEMP 36.2; O2SAT 95
--- NOTE | 2024-05-25 16:31 | DCINST_ITS ---
Discharge Instructions Activity Discharge Activity: May Not Drive, Use Walker, Use Crutches and - (No weightbearing left foot - use knee walker, regular walker or crutches during ambulation to stay off left foot) Weight Bearing Status: No weight bearing (No weightbearing left foot) Keep extremity elevated above heart level: Operative Extremity (Keep left foot elevated with pillows at least 50 minutes of every hour, be sure to keep pressure off of heel) Dressing / Incision Call your doctor if your incision/area has: Continuous Slow Oozing, Sudden Increased Bleeding and Foul Smelling Discharge Call your doctor if you observe: Fever of 101 or Higher, Coldness, Increased Pain, Shortness of breath, Chest pain, Increased palpitations (irregular heartbeat), Calf discomfort and Uncontrolled pain Change Dressing in: do not change dressing Remove Dressing in: do not remove dressing Cleanse incision/area with: Keep Dressing Clean & Dry Follow Up Care Please Follow Up With: Carlos Kirby DPM When: in office this week Test Results: Test results from this visit will be discussed in further detail at your follow- up appointment, if applicable. Discharge Plan Admission Admit Date/Time: 05/22/24 13:28 Attending Provider: Carlos Kirby Primary Care Provider: Luis Enrique Napier Consulting Providers: Clare Freitas Discharge Orders/Prescriptions Prescriptions: No Action cholecalciferol (vitamin D3) 250 mcg (10,000 unit) tablet 250 mcg PO DAILY Patient Comments: D3 with K2 magnesium 200 mg tablet 200 mg PO DAILY pregabalin [Lyrica] 75 mg capsule 75 mg PO 4X/DAY valsartan 80 mg tablet 40 mg PO QHS tizanidine [Zanaflex] 2 mg capsule 2 mg PO Q8H PRN (Reason: muscle spasticity) vitamin B complex Capsule 1 cap PO QDAY cyanocobalamin-liver extract Tablet 5,000 tab PO DAILY pitavastatin calcium 1 mg tablet 1 mg PO QHS ascorbic acid (vitamin C) [C-500] 500 mg tablet extended release 500 mg PO DAILY Referrals / Follow Up: Luis nErique Napier MD [Primary Care Provider] -
--- NOTE | 2024-05-25 16:40 | DCINST_ITS ---
Discharge Instructions Activity Weight Bearing Status: No weight bearing (No weightbearing left foot) Keep extremity elevated above heart level: Operative Extremity (Keep left foot elevated with pillows at least 50 minutes of every hour, be sure to keep pressure off of heel) Dressing / Incision Call your doctor if your incision/area has: Continuous Slow Oozing, Sudden Increased Bleeding and Foul Smelling Discharge Call your doctor if you observe: Fever of 101 or Higher, Coldness, Increased Pain, Shortness of breath, Chest pain, Increased palpitations (irregular heartbeat), Calf discomfort and Uncontrolled pain Cleanse incision/area with: Keep Dressing Clean & Dry Follow Up Care Please Follow Up With: Carlos Kirby DPM Test Results: Test results from this visit will be discussed in further detail at your follow- up appointment, if applicable. Discharge Plan Admission Admit Date/Time: 05/22/24 13:28 Attending Provider: Carlos Kirby Primary Care Provider: Luis Enrique Napier Consulting Providers: Clare Freitas Discharge Orders/Prescriptions Prescriptions: New oxycodone-acetaminophen [Percocet] 5-325 mg tablet 1 - 2 tab PO Q4H PRN (Reason: pain) 3 Days Qty: 30 0RF Eliquis 2.5 mg tablet 2.5 mg PO Q12H Qty: 60 0RF Continued cholecalciferol (vitamin D3) 250 mcg (10,000 unit) tablet 250 mcg PO DAILY Patient Comments: D3 with K2 magnesium 200 mg tablet 200 mg PO DAILY pregabalin [Lyrica] 75 mg capsule 75 mg PO 4X/DAY valsartan 80 mg tablet 40 mg PO QHS tizanidine [Zanaflex] 2 mg capsule 2 mg PO Q8H PRN (Reason: muscle spasticity) vitamin B complex Capsule 1 cap PO QDAY cyanocobalamin-liver extract Tablet 5,000 tab PO DAILY pitavastatin calcium 1 mg tablet 1 mg PO QHS ascorbic acid (vitamin C) [C-500] 500 mg tablet extended release 500 mg PO DAILY Referrals / Follow Up: Luis Enrique Napier MD [Primary Care Provider] - Disposition Disposition (needs filled in before D/C Order can be placed): Home, Self Care
--- NOTE | 2024-05-25 16:43 | PCM.PN.HOSP ---
Reason for Visit Reason for Visit: Diagnoses Essential (primary) hypertension (05/22/24) Primary osteoarthritis, left ankle and foot (05/22/24) Pain in left foot (05/22/24) Subjective Subjective Patient reports continued to have pain especially when leg is down, has been trying to offload is much as possible and elevate leg. Reports he has not had a bowel movement in a couple of days which is abnormal for him but he is not nauseous and has no abdominal discomfort at this time but is agreeable to stool softener Objective Data Objective Data Vital Signs: Vital Signs Temp Pulse Resp BP Pulse Ox O2 Del Method 97.2 F L 72 18 142/87 H 95 Room Air 05/25/24 14:46 05/25/24 14:46 05/25/24 14:46 05/25/24 14:46 05/25/24 14:46 05/25/24 14:46 Oxygen Delivery Method Room Air Weight: 100.698 kg Body Mass Index (BMI) 33.7 Intake & Output: Intake and Output for Last 24 Hours 05/23/24 05/24/24 05/25/24 23:59 23:59 23:59 Intake Total 2300 / 2850 2845.25 / 3395.25 1100 / 1100 Output Total 1575 / 1975 400 / 800 2875 / 2875 Balance 725 / 875 2445.25 / 2595.25 -1775 / -1775 Lab / Micro Data 05/24/24 15:27 05/24/24 15:27 Physical Exam Narrative General: Alert, oriented, no apparent distress HEENT: Atraumatic, normocephalic Eyes: extraocular movements grossly intact Neck: Supple Respiratory: normal respiratory effort Cardiovascular: no edema appreciated GI: nondistended, nontender, no rebound, guarding, rigidity Extremities: Moving all extremities, foot is wrapped and elevated Neuro: No overt focal neurological deficits Psych: Cooperative Assessment & Plan Assessment/Plan (1) Arthritis of left subtalar joint: (2) HTN (hypertension): PLAN: Plan 1. Left subtalar joint osteoarthritis ? Podiatry primary. S/p left subtalar joint arthrodesis with Dr. Kirby on 05/22. Patient tolerated procedure well, no intraoperative complications reported. Pain management and DVT prophylaxis per podiatry. Follow-up a.m. CBC and BMP. ? Medically stable for discharge -05/25: Management per primary, patient's been working with PT/OT, reports that he intends to go home on discharge 2. Hypertension ? On home valsartan 40 mg daily. Blood pressure elevated to the 160s to 170s postoperatively and patient appears fairly comfortable on exam. Will order IV hydralazine as needed for SBP greater than 170 and home valsartan restarted for tomorrow morning. ? Creatinine is stable, continue with his home valsartan on discharge -05/25: Continue home medications on discharge and follow-up with PCP 3. Neuropathy ? Continue home Lyrica 75 mg in morning and afternoon and 150 mg at night. -05/25: Continue Lyrica 4. Hyperlipidemia ? Continue home statin. -05/25: Continued on statin 5. Obesity ? BMI 33 on admit. Complicates hospital course, care and prognosis. 6. Constipation -Without nausea or vomiting or significant abdominal discomfort on 05/25, discussed this was likely due to opiates, stool softener added #DVT ppx: Lovenox subcu Clare Freitas MD Charges/Coding Visit Charges Inpatient E&M: 54110 [facility] Hosp L1
--- NOTE | 2024-05-25 16:45 | PCM.DC.SUM ---
Providers Date of Admission: 05/22/24 Primary Care Physician: Dr. Luis Enrique Napier MD Consultations 05/22/24 13:34 Consult: Hospitalist Routine Consulting Provider: Byron Smith Reason for Consult: hypertension EMERGENT Consult: No MD Notified: Yes Date Notified: 05/22/24 Time Notified: 15:37 Method of Notification: Text Reason For Visit: Left subtalar joint fusion/arthrode Diagnosis Discharge Diagnosis (1) Arthritis of left subtalar joint: Status: Acute Code(s): M19.072 - Primary osteoarthritis, left ankle and foot (2) Pain in left foot: Status: Acute Code(s): M79.672 - Pain in left foot Plan s/p left foot subtalar joint arthrodesis and excision of os trigonum on 05/22/2024 without complication. Keep dressing/splint clean, dry and intact. No weightbearing left foot, keep foot elevated. Pain management: Acetaminophen, Oxyir, Dilaudid. DVT Prophylaxis: Lovenox 40mg subc daily. Antibiotic Prophylaxis: Ancef 1g q 8 hours - completed and discontinued. Hypertension: Hospital consult - appreciate assistance. d/c planning: continued post op pain, not ready for d/c today, possible d/c tomorrow once pain is controlled on oral pain medication. Medications at Discharge Home Medications cholecalciferol (vitamin D3) 250 mcg (10,000 unit) tablet 250 mcg PO DAILY 08/03/21 magnesium 200 mg tablet 200 mg PO DAILY 08/03/21 pregabalin 75 mg capsule (Lyrica) 75 mg PO 4X/DAY 11/02/21 tizanidine 2 mg capsule (Zanaflex) 2 mg PO Q8H PRN muscle spasticity 02/01/22 valsartan 80 mg tablet 40 mg PO QHS 02/01/22 vitamin B complex 1 cap PO QDAY 05/06/24 ascorbic acid (vitamin C) 500 mg tablet,extended release (C-500) 500 mg PO DAILY 05/18/24 cyanocobalamin-liver extract tablet 5,000 tab PO DAILY 05/18/24 pitavastatin calcium 1 mg tablet 1 mg PO QHS 05/18/24 apixaban 2.5 mg tablet (Eliquis) 2.5 mg PO Q12H #60 tabs 05/25/24 oxycodone-acetaminophen 5 mg-325 mg tablet (Percocet) 1 - 2 tab PO Q4H PRN pain 3 days #30 tabs 05/25/24 Hospital Course Operations - (s/p left subtalar joint arthrodesis and excision of os trigonum on 05/22/2024 - patient admitted for post op pain management and observation - pt doing well and pain well controlled at this time and ok to d/c) Physical Exam Const alert, oriented x3 and no apparent distress Constitutional Narrative: Dressing/splint clean, dry and intact, CFT < 2 seconds to all toes left foot, able to dorsiflex and plantarflex toes left foot, no suspicion of infection, compartment syndrome, or dvt. Weight / BMI Weight Weight: 100.698 kg Body Mass Index (BMI) 33.7 ABG / Lab / Microbiology Data 05/24/24 15:27 05/24/24 15:27 D/C Instructions Weight Bearing Status: No weight bearing (No weightbearing left foot) Keep extremity elevated above heart level: Operative Extremity (Keep left foot elevated with pillows at least 50 minutes of every hour, be sure to keep pressure off of heel) Call your doctor if your incision/area has: Continuous Slow Oozing, Sudden Increased Bleeding and Foul Smelling Discharge Call your doctor if you observe: Fever of 101 or Higher, Coldness, Increased Pain, Shortness of breath, Chest pain, Increased palpitations (irregular heartbeat), Calf discomfort and Uncontrolled pain Cleanse incision/area with: Keep Dressing Clean & Dry Please Follow Up With: Carlos Kirby DPM When: in office this week Meaningful Use Info Meaningful Use Meaningful Use Diagnoses (Choose all that apply): None applicable Ischemic Stroke Statin Dosing Therapy Reference: STATIN DOSE THERAPY REFERENCE: * Patients > 75 years receive moderate or high dose statin therapy. * Patients 75 years or YOUNGER should receive HIGH intensity statin dose unless contraindicated. You will be required to document reason for non-treatment if statin daily dose does not meet guidelines. HIGH DOSE STATIN THERAPY DAILY Atorvastatin > than or = to 40 mg Rosuvastatin > than or = to 20 mg Amlodipine + Atorvastatin > than or = to 2.5/40 mg Ezetimibe + Simvastatin 10/80 mg Simvastatin 80mg Discharge Plan Admission Admit Date/Time: 05/22/24 13:28 Attending Provider: Carlos Kirby Primary Care Provider: Luis Enrique Napier Consulting Providers: Clare Freitas Discharge Orders/Prescriptions Prescriptions: New oxycodone-acetaminophen [Percocet] 5-325 mg tablet 1 - 2 tab PO Q4H PRN (Reason: pain) 3 Days Qty: 30 0RF Eliquis 2.5 mg tablet 2.5 mg PO Q12H Qty: 60 0RF Continued cholecalciferol (vitamin D3) 250 mcg (10,000 unit) tablet 250 mcg PO DAILY Patient Comments: D3 with K2 magnesium 200 mg tablet 200 mg PO DAILY pregabalin [Lyrica] 75 mg capsule 75 mg PO 4X/DAY valsartan 80 mg tablet 40 mg PO QHS tizanidine [Zanaflex] 2 mg capsule 2 mg PO Q8H PRN (Reason: muscle spasticity) vitamin B complex Capsule 1 cap PO QDAY cyanocobalamin-liver extract Tablet 5,000 tab PO DAILY pitavastatin calcium 1 mg tablet 1 mg PO QHS ascorbic acid (vitamin C) [C-500] 500 mg tablet extended release 500 mg PO DAILY Referrals / Follow Up: Luis Enrique Napier MD [Primary Care Provider] - Disposition Disposition (needs filled in before D/C Order can be placed): Home, Self Care
--- NOTE | 2024-05-25 16:46 | PCM.PROGNOTE ---
Subjective Subjective Patient was seen today for follow up on left foot. Pain is controlled with oral pain medication, he relates pain has improved, not as severe and does not last as long when there is pain. No f/c/n/v/sob/chest pain or calf pain/cramping. Objective Data Objective Data Vital Signs: Vital Signs Temp Pulse Resp BP Pulse Ox O2 Del Method 97.2 F L 72 18 142/87 H 95 Room Air 05/25/24 14:46 05/25/24 14:46 05/25/24 14:46 05/25/24 14:46 05/25/24 14:46 05/25/24 14:46 Oxygen Delivery Method Room Air Weight: 100.698 kg Body Mass Index (BMI) 33.7 Intake & Output: Intake and Output for Last 24 Hours 05/23/24 05/24/24 05/25/24 23:59 23:59 23:59 Intake Total 2300 / 2850 2845.25 / 3395.25 1100 / 1100 Output Total 1575 / 1975 400 / 800 2875 / 2875 Balance 725 / 875 2445.25 / 2595.25 -1775 / -1775 Lab / Micro Data 05/24/24 15:27 05/24/24 15:27 Physical Exam Const alert, oriented x3 and no apparent distress Constitutional Narrative: Dressing/splint clean, dry and intact, CFT < 2 seconds to all toes left foot, able to dorsiflex and plantarflex toes left foot, no suspicion of infection, compartment syndrome, or dvt. No heel pain, left. He points to surgical site as site of pain when present. No pain out of proportion, left foot. No calf pain bilateral. Assessment & Plan Assessment/Plan (1) Arthritis of left subtalar joint: (2) Pain in left foot: PLAN: Plan s/p left foot subtalar joint arthrodesis and excision of os trigonum on 05/22/2024 without complication. Keep dressing/splint clean, dry and intact. No weightbearing left foot, keep foot elevated. Pain management: Acetaminophen, Oxyir, Dilaudid. Percocet 5/325mg PO 1-2 tabs q 4 hours once discharged. DVT Prophylaxis: Lovenox 40mg subc daily. Switch to Apixaban 2.5mg PO q 12 hours as outpatient. Antibiotic Prophylaxis: Ancef 1g q 8 hours - completed and discontinued. Hypertension: Hospital consult - appreciate assistance. d/c planning: home today, discussed with patient and he feels ready to go home and he agrees.
== END 2024-05-25 18:48 | disposition home or self-care (01) | DRG 505 ==
LOC: SDC 14:25 → MS3 14:25
PROVIDERS: Admitting Provider Podiatrist; PCP Family Medicine; Referring Provider Podiatrist; Visit Provider Podiatrist
PROC: 0SGJ04Z Fusion of Left Tarsal Joint with Internal Fixation Device, Open Approach (ICD-10-PCS; principal; 2024-05-22 10:15)
DX: M19.072 Primary osteoarthritis, left ankle and foot (principal); E66.9 Obesity, unspecified; I10 Essential (primary) hypertension; E78.2 Mixed hyperlipidemia; G62.9 Polyneuropathy, unspecified; Q68.8 Other specified congenital musculoskeletal deformities; K59.03 Drug induced constipation; T40.605A Adverse effect of unspecified narcotics, initial encounter; Y92.239 Unspecified place in hospital as the place of occurrence of the external cause; Z68.33 Body mass index [BMI] 33.0-33.9, adult; Z98.1 Arthrodesis status; Z79.899 Other long term (current) drug therapy
CPT/HCPCS: 36415; 73610; 73620; 73630; 76000; 80048; 80053; 85025; 88305; 88311; 94668; 97110; 97162; 97165; 97530; 97535; C1713; A4216; J2405

== ENCOUNTER → 2024-06-26 | Outpatient (CLI) | payer MEDICARE, MEDICAID, SELFPAY ==
[2024-06-26 15:54] LABS: ALB/GLOB Ratio 0.9 RATIO (0.9-2.4); AST(SGOT) 22 U/L (15-37); Alanine Aminotransfer ALT/SGPT 32 U/L (16-61); Albumin, Serum 3.6 g/dL (3.2-5.0); Alkaline Phosphatase 86 U/L (45-117); Anion Gap 6 (5-15); BUN 11 mg/dL (7-18); BUN/Creat Ratio 10.4 RATIO (10-20); Calcium,Total 9.5 mg/dL (8.5-10.1); Chloride 106 mmol/L (98-107); Cholesterol 236 mg/dL (200); Creatinine, Serum 1.06 mg/dL (0.70-1.30); EST Glomerular Filtration Rate 76 mL/min (>60); Est Glom Filt Rate - Afr Amer 91 mL/min (>60); Globulin 3.8 g/dL (2.2-4.2); Glucose 88 mg/dL (74-106); High Density Lipoprotein 47 mg/dL; PSA,Total - Annual Screen 3.26 ng/mL (0.00-4.00); Potassium 4.2 mmol/L (3.5-5.1); Protein, Total 7.4 g/dL (6.4-8.2); Sodium Level 138 mmol/L (136-145); Triglycerides 163 mg/dL; Very Low Density Lipoprotein 33 mg/dL (5-40)
== END | disposition home or self-care (01) ==
LOC: MFPLAB 11:47
PROVIDERS: PCP Family Medicine; Referring Provider Family Medicine; Visit Provider Family Medicine
DX: Z00.00 Encounter for general adult medical examination without abnormal findings (principal); E78.5 Hyperlipidemia, unspecified; Z12.5 Encounter for screening for malignant neoplasm of prostate
CPT/HCPCS: 36415; 80053; 80061; 84153; G0103

== ENCOUNTER → 2024-08-11 | Outpatient (CLI) | payer MEDICARE, SELFPAY ==
--- NOTE | 2024-08-11 12:38 | VDLE_ITS ---
Reason For Study: LLE PAin RIGHT LEFT CFV is compressible, spontaneous, phasic, GSV is normal. competent and demonstrates normal CFV is compressible, spontaneous, phasic, augmentation. competent, and demonstrates normal Procedure augmentation. This is a venous duplex using B-mode, color FV is compressible, spontaneous, phasic, flow and spectral Doppler. competent and demonstrates normal Exam performed in department. augmentation. The exam was diagnostic. POP V is compressible, spontaneous, phasic, A preliminary report was called and/or faxed competent and demonstrates normal to Dr. Kirby office. augmentation. T/P Trunk is compressible. PTV is compressible. LT PerV is compressible. VL/Venous Duplex US, Unilateral Interpretation Summary Deep veins of the left lower extremity are patent and compressible segmentally. There is no evidence of left lower extremity deep vein thrombosis. Valvular competence appears intac t within the proximal deep venous system on the left . The left great saphenous vein appears patent a nd compressible segmentally. The right common femoral vein is patent and compressible . Ordering Physician: Carlos Kirby Referring Physician: Luis Enrique Napier Performed By: Santiago Brownlee RVT
== END | disposition home or self-care (01) ==
LOC: CVS 12:31
PROVIDERS: PCP Family Medicine; Visit Provider Podiatrist
DX: M79.662 Pain in left lower leg (principal); M79.89 Other specified soft tissue disorders
CPT/HCPCS: 93971

== ENCOUNTER → 2024-08-28 | Outpatient (CLI) | payer MEDICARE, SELFPAY ==
--- NOTE | 2024-08-28 18:55 | CT_ITS ---
PROCEDURE: CT left foot without IV contrast REASON FOR EXAM: Pain TECHNIQUE: Multiple contiguous axial images through the left foot were obtained without the administration of intravenous contrast. Two-dimensional coronal and sagittal reformatted images were reconstructed. Low-dose imaging technique was utilized. COMPARISON: None. FINDINGS: See impression. CT/Extremity Lower without Contra IMPRESSION: Two intact subtalar joint fixation screws in place. 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 No evidence of acute fracture or malalignment. No significant arthropathy. Moderate/sever e osteopenia which may relate to disuse. Calcaneal enthesopathy. Mild scarring along the deep aspect of Kager's fat pad . Mild diffuse subcutaneous edema. No drainable fluid collection. External contours of the ankle tendons are grossly intact. One or more dose reduction techniques were used (e.g., Automated exposure contr ol, adjustment of the mA and/or kV according to patient size, use of iterative reconstruction technique). Reading Location: [facility]
== END | disposition home or self-care (01) ==
LOC: CT 18:57
PROVIDERS: PCP Family Medicine; Referring Provider Podiatrist; Visit Provider Podiatrist
DX: M79.672 Pain in left foot (principal)
CPT/HCPCS: 73700

== ENCOUNTER 2024-10-08 09:30 | Outpatient (RCR) | payer MEDICARE, MEDICAID, SELFPAY ==
--- NOTE | 2024-08-03 09:52 | HP.PTEVAL_ITS ---
Patient's Visit Information Visit Information Visit Information: IRENE NIETO is a 59 year old M referred to Physical Therapy by Dr. Carlos Kirby DPM with a diagnosis of s/p subtalar joint arthrodesis 05/22/24. Date of Evaluation: 08/03/24 Physical Therapist: Manjit Esqueda DPT, OCS, CSCS Visit Plan Frequency: 2x /Week Duration: 4-6 Weeks Plan: 2x/week x 4 weeks for IE HEP: AROM PF, DF, inv, Ev 15x towel DF stretch 10x, towel toe curls 50x, seated heel toe raises 15x, PROM PF 10x all 3x/day. treat with MH rollout to gastroc, PROM and mobs for DF, PF. metatarsal mobs, progressive ankle and foot ROM and strength. Gait training and stairs. ice as needed. Pt can be out of boot in clinic but is to wear it outside of clinic until doctor f/u Subjective Subjective: 05/22/24 arthrodesis subtalar and in boot NWB since then on foot. Had scooter. No exercises. Got WB 2 weeks ago and wearing boot most of time. Walking now with one crutch and boot. Sleep is not terrible but kept him up orginally. No exercises given yet. Not employed: nothing to do with foot. On disability due to L hand, comaprtment syndrome. When healthy takes care of grandkids and works around house [employer]. Currently driving but walking is slow and limited due to limitations. Being on foot long makes it hurt. uses power chair at store. not needed prior to surgery. basic ADLs currently all I. precautions : b oot on until f/u Steps at home are hard but uses crutch and railing. Pain L foot: Pain Intensity (Out of 10): 0 Pain Intensity Range: 0 and 9 Comment: worse with WB. Objective Objective: Walks into PT with crutch in R UE and boot on, L leg out to side and WBAT, much weight through crutch. Mod i with gait with deviations. Trnasfer chair and table I. AROM hip and knees WFL. L ankle AROM -5 DF, 28 PF, 12 inv and 0 eversion. PROM -3 DF, 33 PF, 15 inv and 3 eversion. L R is 5 DF, 45 PF, 22 inv and 12 eversion. strength is 4- L ankle with pain inv and ev. R is 5/5 no pain. metatarsals are stiff on L compared to R. big toe AROM WNL B and 4 strngth ext L and 4+ R. No pain. Incision is healed well adn mild scarring. Most notably tight in ankle movement L. Standing feet together hard to get heel down due to tightness but can weight shift gently without boot. Balance/Special Test Scores Lower Extremity Functional Score: 27 Goals Goal 1:: AROM 4 DF and 40 PF L to help ambulate. Goal Time Frame: 4-6 Weeks Goal 2:: I appropriate HEP to limit future problems strength adn stretch L ankle Goal Time Frame: 4-6 Weeks Goal 3:: walk without gait deviations without boot in community Goal Time Frame: 4-6 Weeks Goal 4:: steps reciprocally without rail needed Goal Time Frame: 4-6 Weeks Goal 5:: LEFS score40 Goal Time Frame: 4-6 Weeks Goal 6:: Plan to hike in fall Goal Time Frame: 4-6 Weeks Rehabilitation Potential Physical Therapy Diagnosis: stiff L foot and ankle limiting fucntional ambula tion. Rehabilitation Potential: Fair Anticipated Interventions Patient/Client Instruction: Educate patient on: Condition and Plan of Care For the Purpose of:: To decrease pain, To increase ROM, To improve nutrient delivery to tissue, To improve muscle performance and motor function and To increase tolerance to activity/condition/position Therapeutic Exercise to Include: Strength training, Flexibilty training, Gait and locomotor training, Passive ROM and Active ROM For the Purpose of:: To decrease pain, To increase ROM, To improve nutrient delivery to tissue, To improve muscle performance and motor function, To increase tolerance to activity/condition/position, To improve ability of physical actions for home/community/work/leisure and To improve gait and locomotor functions Manual Therapy Techniques to Include: Scar massage, Mobilization, Passive ROM and Soft tissue mobilization For the Purpose of:: To decrease pain, To increase ROM, To improve nutrient delivery to tissue, To improve muscle performance and motor function, To increase tolerance to activity/condition/position and To increase flexibility/ROM Cryotherapy (ice pack, ice massage): Yes Thermo therapy (hot pack): Yes For the Purpose of:: To decrease pain, To increase ROM, To improve nutrient delivery to tissue, To improve muscle performance and motor function, To increase tolerance to activity/condition/position and To improve ability of physical actions for home/community/work/leisure Text: Thank you for the opportunity to evaluate your patient. For Medicare and Medicare HMO plans, please review the plan of care and approve it. It will need to be FAXED BACK to us at [phone] for Medicare purposes. For Medicare only, by signing this I certify the plan of care. Please let me know if there are questions or concerns regarding this plan of care. Physician Signature: Date:
--- NOTE | 2024-09-02 11:53 | HP.PTDCSUM ---
Discharge Summary D/C summary: It has been my pleasure to treat IRENE NIETO referred by Dr. Carlos Kirby, DPEdgar, with the diagnosis of s/p subtalar joint arthrodesis 05/22/24 for a total of 10 visit(s). Discharge Date: 09/02/24 Please see the following information for a summary of their discharge status. Subjective Subjective: Getting better ROM. Pain is stabboing at times, described this week as 7/10 at times with walking and 2/10 at rest. Sleep is interrupted sometimes in thatoutside of ankle can hurt. Using pillow between feet. Not in boot anymore. Activities: at home is avoiding lifting and excessive walking. laundry basket is partially full or two hands of groceries is avoided. Gets aorund house OK but steps are slow. Goes to grocery store but sometimes off loads with crutch. Uses power chair at store. Had CT last week and Dr. Kirby in am. Doing Exercises daily at home. Pain L foot: Pain Intensity (Out of 10): 3 Overall Improvement % Improvement: 40 Objective Objective/Function: 3 degree DF, 23 degree PF in L ankle 7 inv and 8 eversion. Tender maximally lateral L foot. strength in ankle is 4+/5 without much pain. Gait is I but hurts L lateral foot with push off every step 7/10 and short L stanc time. Stands with L foot pointing out until cued. Steps are reciprocal with two railings and avoids forefoot use with descending. Improved ROM and mobility minimally but pain persists. Goals Goal 1:: AROM 4 DF and 40 PF L to help ambulate. Goal Progress: Progressing Goal 2:: I appropriate HEP to limit future problems strength adn stretch L ankle Goal Progress: Goal Met Goal 3:: walk without gait deviations without boot in community Goal Progress: Not Progressing Goal 4:: steps reciprocally without rail needed Goal Progress: Not Progressing Goal 5:: LEFS score40 Goal Progress: Progressing Goal 6:: Plan to hike in fall Goal Progress: Progressing Plan Plan: F/U with doctor for other options, CT review tomorrow d/c PT but happy to see longer if no other options. D/C Information Discharge Comments: To doctor tomorrow for f/u. d/c sentence: If there are questions or concerns regarding this patient's physical therapy, please feel free to call me at [phone]. Thank you for the referral of this patient. Sincerely, Manjit Esqueda, DPT, OCS, CSCS Balance/Gait/Functional tests Balance/Special Test Scores Lower Extremity Functional Score: 31 Improvement % Improvement: 40
--- NOTE | 2024-09-11 09:29 | HP.PTREVAL ---
Re-Evaluation Intro: Dr. Carlos Kirby, DPM, It has been my pleasure to treat IRENE NIETO over the last 11 visits for s/p subtalar joint arthrodesis 05/22/24. Please see the progress note below for an update on the physical therapy plan of care! Subjective Subjective: Saw doctor and wants more PT. using crutch today for lateral painL ankleat malleolie. 02/14 intrmittent when he is on it. Worse last weekend, went to Auto show on knee scooter but did not use it alot. Got worse ovr the weekend after that. HEP going well. Objective Objective/Function: ROM same as last time, very tender over peroneals L especially at insertion, mildly swollen today. Walking with crutch in R UE to diminish WB L, antalgic without it. Plan Plan Plan: 2x/week for 4 weeks with new script for peroneal tendonitis treeat with US to R lateral peroneals nonthermal TENS and VASO until inflammation down, STM to foot and ankle and PF and CFM to peroneal L Progress when painfree to proprioceptive x. New goals(still appropriate), new POC, fair prognosis Balance/Gait/Functional tests Balance/Special Test Scores Lower Extremity Functional Score: 31 Goals Goals Goal 1:: AROM 4 DF and 40 PF L to help ambulate. Goal Time Frame: 4-6 Weeks Goal Progress: Progressing Goal 2:: I appropriate HEP to limit future problems strength adn stretch L ankle Goal Time Frame: 4-6 Weeks Goal Progress: approp Goal 3:: walk without gait deviations without boot in community Goal Time Frame: 4-6 Weeks Goal Progress: approp Goal 4:: steps reciprocally without rail needed Goal Time Frame: 4-6 Weeks Goal Progress: approp Goal 5:: LEFS score40 Goal Time Frame: 4-6 Weeks Goal Progress: Progressing, approp Goal 6:: Plan to hike in fall Goal Time Frame: 4-6 Weeks Goal Progress: Progressing, approp Anticipated Interventions Anticipated Interventions Patient/Client Instruction: Educate patient on: Condition and Plan of Care For the Purpose of:: To decrease pain, To increase ROM, To improve nutrient delivery to tissue, To improve muscle performance and motor function and To increase tolerance to activity/condition/position Therapeutic Exercise to Include: Strength training, Flexibilty training, Gait and locomotor training, Passive ROM and Active ROM For the Purpose of:: To decrease pain, To increase ROM, To improve nutrient delivery to tissue, To improve muscle performance and motor function, To increase tolerance to activity/condition/position, To improve ability of physical actions for home/community/work/leisure and To improve gait and locomotor functions Manual Therapy Techniques to Include: Scar massage, Mobilization, Passive ROM and Soft tissue mobilization For the Purpose of:: To decrease pain, To increase ROM, To improve nutrient delivery to tissue, To improve muscle performance and motor function, To increase tolerance to activity/condition/position and To increase flexibility/ROM Cryotherapy (ice pack, ice massage): Yes Thermo therapy (hot pack): Yes For the Purpose of:: To decrease pain, To increase ROM, To improve nutrient delivery to tissue, To improve muscle performance and motor function, To increase tolerance to activity/condition/position and To improve ability of physical actions for home/community/work/leisure Re-Evaluation Ending Re-evaluation ending: Please do not hesitate to contact me at [phone] by phone or if you have questions or concerns regarding this new plan of care! Sincerely, Manjit Esqueda, DPT, OCS, CSCS
--- NOTE | 2024-10-08 10:21 | HP.PTREVAL ---
Re-Evaluation Intro: Dr. Carlos Kirby, DPM, It has been my pleasure to treat IRENE NIETO over the last 19 visits for s/p subtalar joint arthrodesis 05/22/24. Please see the progress note below for an update on the physical therapy plan of care! Subjective Subjective: Going the right way slowly. Having sound waves treatments every two weeks and has had 3 of them. The last one really helped. Still doing therapy and has been better the last week. No episodes of having to sit down adn get off feet. 12/15 this week with walking, uses crutch if he gets too painful or has lots of walking but not for daily walking. Doing HEP daily and proprioceptive at home daily. To doctor next week. Last x ray and CTSCAN showed it is still healing. Will have MRI to check for soft tissue inflammation. MRI will be next week. Objective Objective/Function: 35 PF and 1 degree DF L knee. Not improving ROM, not necessaryily unexpectedly. Antalgic on L and avoids L push off. Is weak in singlle leg heel raise L 3/+/5 and needs more strngth here but pain is his main problem which is higher than expected. He is managing this with orthotics, RPW at doctor office and has MRI that will hopefully show the cause. Will continue HEP in meantime. Plan Plan Plan: pt to call after doctor visit/MRI for f/u as needed. Will continue HEP strengthening adn ROM which I expect will help with his strength but ROM is stagnant. pain is his biggest issue. Balance/Gait/Functional tests Balance/Special Test Scores Lower Extremity Functional Score: 40 Goals Goals Goal 1:: AROM 4 DF and 40 PF L to help ambulate. Goal Time Frame: 4-6 Weeks Goal Progress: Not Progressing Goal 2:: I appropriate HEP to limit future problems strength adn stretch L ankle Goal Time Frame: 4-6 Weeks Goal Progress: Goal Met Goal 3:: walk without gait deviations without boot in community Goal Time Frame: 4-6 Weeks Goal Progress: weakness and pain limit Goal 4:: steps reciprocally without rail needed Goal Time Frame: 4-6 Weeks Goal Progress: Progressing Goal 5:: LEFS score40 Goal Time Frame: 4-6 Weeks Goal Progress: Goal Met Goal 6:: Plan to hike in fall Goal Time Frame: 4-6 Weeks Goal Progress: Progressing, approp Anticipated Interventions Anticipated Interventions Patient/Client Instruction: Educate patient on: Condition and Plan of Care For the Purpose of:: To decrease pain, To increase ROM, To improve nutrient delivery to tissue, To improve muscle performance and motor function and To increase tolerance to activity/condition/position Therapeutic Exercise to Include: Strength training, Flexibilty training, Gait and locomotor training, Passive ROM and Active ROM For the Purpose of:: To decrease pain, To increase ROM, To improve nutrient delivery to tissue, To improve muscle performance and motor function, To increase tolerance to activity/condition/position, To improve ability of physical actions for home/community/work/leisure and To improve gait and locomotor functions Manual Therapy Techniques to Include: Scar massage, Mobilization, Passive ROM and Soft tissue mobilization For the Purpose of:: To decrease pain, To increase ROM, To improve nutrient delivery to tissue, To improve muscle performance and motor function, To increase tolerance to activity/condition/position and To increase flexibility/ROM Cryotherapy (ice pack, ice massage): Yes Thermo therapy (hot pack): Yes For the Purpose of:: To decrease pain, To increase ROM, To improve nutrient delivery to tissue, To improve muscle performance and motor function, To increase tolerance to activity/condition/position and To improve ability of physical actions for home/community/work/leisure Re-Evaluation Ending Re-evaluation ending: Please do not hesitate to contact me at [phone] by phone or if you have questions or concerns regarding this new plan of care! Sincerely, Manjit Esqueda, DPT, OCS, CSCS
--- NOTE | 2024-12-16 15:55 | HP.PTDCNRP_ITS ---
Patient Information Patient Information: IRENE NIETO was seen in my office for initial evaluation on 08/03/24. The following Plan of Care was established for this patient: POC Established Initial Frequency: 2x /Week Initial Duration: 4-6 Weeks Anticipated Interventions Patient/Client Instruction: Educate patient on: Condition and Plan of Care For the Purpose of:: To decrease pain, To increase ROM, To improve nutrient delivery to tissue, To improve muscle performance and motor function and To increase tolerance to activity/condition/position Therapeutic Exercise to Include: Strength training, Flexibilty training, Gait and locomotor training, Passive ROM and Active ROM For the Purpose of:: To decrease pain, To increase ROM, To improve nutrient delivery to tissue, To improve muscle performance and motor function, To increase tolerance to activity/condition/position, To improve ability of physical actions for home/community/work/leisure and To improve gait and locomotor functions Manual Therapy Techniques to Include: Scar massage, Mobilization, Passive ROM and Soft tissue mobilization For the Purpose of:: To decrease pain, To increase ROM, To improve nutrient delivery to tissue, To improve muscle performance and motor function, To increase tolerance to activity/condition/position and To increase flexibility/ROM Cryotherapy (ice pack, ice massage): Yes Thermo therapy (hot pack): Yes For the Purpose of:: To decrease pain, To increase ROM, To improve nutrient delivery to tissue, To improve muscle performance and motor function, To increase tolerance to activity/condition/position and To improve ability of physical actions for home/community/work/leisure Last Seen Last Seen: This patient was last seen in our office 10/08/24. Pertinent comments regarding their Physical therapy will appear below: Pt seen 19 visits of POC and was 70% better but stagnant at last recheck. He was to have an MRI and call back if meena needed further intervention. It has beeen over two months and I will discontinue him from my care. At this point I will be discontinuing this patient from physical therapy. I w ould be happy to see this patient again in the future if found appropriate by the physician. Thank you! Manjit Esqueda, DPT, OCS, CSCS Balance/Gait/Functional tests Balance/Special Test Scores Lower Extremity Functional Score: 40
== END 2024-10-08 19:00 | disposition home or self-care (01) ==
LOC: PT 09:30
PROVIDERS: PCP Family Medicine; Visit Provider Podiatrist
DX: Z98.1 Arthrodesis status (principal)
CPT/HCPCS: 97016; 97035; 97110; 97140; 97161; 97530

== ENCOUNTER → 2024-10-19 | Outpatient (CLI) | payer MEDICARE, SELFPAY ==
--- NOTE | 2024-10-19 11:00 | MRI_ITS ---
EXAM: MRI LEFT ANKLE WITHOUT CONTRAST. CLINICAL HISTORY: Chronic left subtalar and lateral ankle pain since surgery for peroneal tendon repair on 05/2024. COMPARISON: CT scan on 08/28/2024. TECHNIQUE: Standardized fat and water weighted pulse sequences were obtained in all 3 orthogonal planes. FINDINGS: Surgical changes of the peroneal tendons. 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 Two intact subtalar joint fixation screws are again noted in place. Heterogeneous signal intensity of the visualized bone marrow, probably osteopenia. Moderate diffuse bone marrow edema of the calcaneus. Mild multifocal bone marrow edema of the remaining tarsal bones. Associated soft tissue edema and swelling. Nonspecific finding is represents fibrovascular reaction from repetitive minor trauma versus reflex sympathetic dystrophy. Mild tibiotalar joint effusion. Mild subtalar joint effusion. Mild effusion in the sinus tarsus. Mild edema of the subtalar ligaments. Small calcaneal spur formation. Mild tendinosis of the calcaneal insertional fibers of Achilles tendon. There is no evidence of replacement or fracture. No abnormality is seen in the posterior tibialis, flexor digitorum longus tendon and flexor hallucis longus tendon. The peroneus longus and brevis tendons are otherwise unremarkable. The tibialis anterior, extensor hallucis longus and extensor digitorum longus tendons are unremarkable. Unremarkable plantar fascia. Normal intrinsic muscles of the rearfoot. No abnormality is seen distal tibiofibular syndesmotic ligamentous complex. No abnormality is seen in lateral ligamentous complex. No abnormality is seen deltoid ligamentous complexes. The plantar calcaneonavicular (spring) ligament is unremarkable. Mild degenerative joint disease of the tibiotalar articulation. Normal talar dome. Mild degenerative joint disease of the subtalar articulations. Mild degenerative joint disease of the talonavicular articulation. Mild degenerative joint disease of the calcaneocuboid articulation. Mild degenerative joint disease of the navicular-cuneiform articulations. MRI/Lower Ext Joint Only (Routine) IMPRESSION: 1. Surgical changes of the peroneal tendons. 2. 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 3. Two intact subtalar joint fixation screws are again noted in place. 4. Heterogeneous signal intensity of the visualized bone marrow, probably osteo penia. 5. Moderate diffuse bone marrow edema of the calcaneus. Mild multifocal bone ma rrow edema of the remaining tarsal bones. Associated soft tissue edema and swelling. Nonspecific finding is represents f ibrovascular reaction from repetitive minor trauma versus reflex sympathetic dystrophy. 6. Mild tibiotalar joint effusion. 7. Mild subtalar joint effusion. 8. Mild effusion in the sinus tarsus. 9. Mild edema of the subtalar ligaments. 10. Small calcaneal spur formation. 11. Degenerative joint disease. Reading [facility]
== END | disposition home or self-care (01) ==
LOC: MRI 10:32
PROVIDERS: PCP Family Medicine; Referring Provider Podiatrist; Visit Provider Podiatrist
DX: M76.72 Peroneal tendinitis, left leg (principal)
CPT/HCPCS: 73721

== ENCOUNTER → 2024-12-23 | Outpatient (CLI) | payer MEDICARE, SELFPAY ==
[2024-12-23 14:33] LABS: Microalbumin,Random Urine < 12.0 mg/L (NO RANGE EST.); Microalbumin:Creatinine Ratio UNABLE TO CALCULATE mg/g CRE
== END | disposition home or self-care (01) ==
LOC: LAB 12:31 → LABSPEC 12:33
PROVIDERS: PCP Family Medicine; Referring Provider Family Medicine; Visit Provider Family Medicine
DX: I10 Essential (primary) hypertension (principal); E78.5 Hyperlipidemia, unspecified
CPT/HCPCS: 36415; 82043; 82570

== ENCOUNTER → 2024-12-23 | Outpatient (CLI) | payer MEDICARE, SELFPAY ==
[2024-12-23 16:32] LABS: ALB/GLOB Ratio 1.6 RATIO (0.9-2.4); AST(SGOT) 28 U/L (<=37); Alanine Aminotransfer ALT/SGPT 34 U/L (<=46); Albumin, Serum 4.4 g/dL (3.4-4.8); Alkaline Phosphatase 87 U/L (40-129); Anion Gap 10 (5-15); BUN 13 mg/dL (4-19); BUN/Creat Ratio 14.3 RATIO (10-20); Calcium,Total 9.7 mg/dL (7.6-11.0); Carbon Dioxide 26.3 mmol/L (21.0-32.0); Chloride 103 mmol/L (98-108); Cholesterol 250 mg/dL (<=200); Creatinine, Serum 0.89 mg/dL (0.70-1.20); EST Glomerular Filtration Rate 98 (>60); Globulin 2.7 g/dL (2.2-4.2); Glucose 94 mg/dL (70-99); High Density Lipoprotein 46 mg/dL; Low Density Lipoprotein Calc. 176 mg/dL; Potassium 4.9 mmol/L (3.3-5.1); Protein, Total 7.1 g/dL (5.9-8.4); Sodium Level 139 mmol/L (133-145); Total Bilirubin 0.57 mg/dL (0.00-1.30); Triglycerides 140 mg/dL; Very Low Density Lipoprotein 28 mg/dL (5-40); cholesterol:hdl ratio screen 5.41
--- OUTSIDE RECORDS SUMMARY | 2024-12-23 21:29 | XMS RPT_ITS | CCD ---
Author Organization [facility] CliniSyhi Care Team Providers Care Dinner Cook Name Role Phone Dr. Luis Enrique Napier Primary Care Provider Dr. Luis Enrique Napier Referring Provider Dr. Luis Enrique John Attending Provider Emilia ART GLASS DESIGNER, ART GLASS DESIGNER-C Maliha Attending Provider Luis Enrique Napier MD Primary Care Provider Dr. Luis Enrique Napier Primary Care Provider Dr. Luis Enrique Napier Referring Provider Emilia ARDON, REVA-C Maliha Attending Provider Dr. Luis Enrique Napier Primary Care Provider Dr. Luis Enrique Napier Referring Provider Court GALLAGHER, ELLIOTT Hernández Attending Provider Quyen CALERO, Dr. Dudley Primary Care Provider Quyen CALERO, Dr. Dudley Attending Provider Quyen CALERO, Dr. Dudley Referring Provider Mirta ZULUAGA, Dr. Gonzalez Attending Provider Mason CALERO, Dr. Adiel Jackson Attending Provider Mirta ZULUAGA, Dr. Gonzalez Referring Provider Dr. Luis Enrique Napier MD Primary Care Provider Mirta ZULUAGA, Dr. Gonzalez Attending Provider Mirta ZULUAGA, Dr. Gonzalez Referring Provider Carlos Kirby Attending Unavailable Carlos Kirby Referring Unavailable Napier, Luis Enrique Primary Care Unavailable Wunning, Carlos Attending Unavailable Wunning, Carlos Referring Unavailable Napier, Luis Enrique Primary Care Unavailable Wunning, Carlos Attending Unavailable Wunning, Carlos Referring Unavailable Napier, Luis Enrique Primary Care Unavailable Wunning, Carlos Attending Unavailable Wunning, Carlos Admitting Unavailable Wunning, Carlos Referring Unavailable Napier, Luis Enrique Primary Care Unavailable Freitas, Clare Consulting Unavailable Napier, Luis Enrique Attending Unavailable Napier, Luis Enrique Primary Care Unavailable Wunning, Carlos Attending Unavailable Napier, Luis Enrique Primary Care Unavailable Napier, Luis Enrique Referring Unavailable Napier, Luis Enrique Primary Care Unavailable Maliha Nieto NP Attending Unavailable Wunning, Carlos Admitting Unavailable Wunning, Carlos Referring Unavailable Napier, Luis Enrique Primary Care Unavailable Fortino, Clare Attending Unavailable Fortino, Clare Consulting Unavailable Wunning, Carlos Consulting Unavailable Sarah, Byron Attending Unavailable eller, Byron Consulting Unavailable Mitchell Marquis Attending Unavailable Mitchell Marquis Consulting Unavailable Napier, Luis Enrique Referring Unavailable Napier, Luis Enrique Attending Unavailable Napier, Luis Enrique Primary Care Unavailable Wunning, Carlos Attending Unavailable Napier, Luis Enrique Primary Care Unavailable Allergies Allergy Classification Reported Allergen(s) Allergy Type Date of Onset Reaction(s) Facility (11 sources) Losartan Drug Allergy 08-03-19 22 cough [facility] (12 sources) Pseudoephedrine Drug Allergy 09-29-19 11 Other: See Comments [facility] Work Phone: Comment on above: tachycardia (12 sources) Gadolinium-MRI Contrast Medium; Translations: [Gadolinium-MRI Contrast Medium] Propensity to adverse reactions 08-03-19 22 Vomiting [facility] (1 source) Losartan Drug Allergy 05-22-20 24 [facility] Repository (1 source) Pseudoephedrine Drug Allergy 05-22-20 24 [facility] Repository Medications Current Medications Medication Drug Class(es) Dates Sig (Normalized) Sig (Original) acetaminophen 325 mg / oxyCODONE hydrochloride 5 mg oral tablet (20 sources) Opioid Agonist Start: 05-25-2024 take 1-2 tablets by mouth every four hours as needed for pain Oxycodone-Acetami nophen (Percocet) 5-325 mg tablet Active 1 - 2 {tbl} PO Q4H as needed for pain 30 3 May 25, 2024 Start: 12-24-2018 End: 01-03-2019 Oxycodone-Acetaminophen 1 TA BLET tablet Discontinued 1 - 2 {tbl} PO EVERY 6 HOURS NEEDED as needed for Pain 60 5 December 24, 2018 December 28, 2018 12:00am January 03, 2019 12:07am 1-2 tabs every 6 hours as needed for pain, stop all other tylenol meds Start: 12-24-2018 End: 01-03-2019 take 1 tablet by mouth every six hours as needed for pain Oxycodone-Acetaminophen Discontinued 1 - 2 TABLET PO EVERY 6 HOURS NEEDED 60 5 December 24, 2018 January 03, 2019 12:07am 1-2 tabs every 6 hours as needed for pain, stop all other tylenol meds apixaban 2.5 mg oral tablet (2 sources) Factor Xa Inhibitor Start: 05-25-2024 take 1 tablet by mouth every twelve hours Apixaban (Eliquis) 2.5 mg tablet Active 2.5 mg PO Q12H 60 May 25, 2024 1:00am ascorbic acid 500 mg extended release oral tablet (14 sources) Vitamin C Start: 05-18-2024 take 1 tablet by mouth once daily Ascorbic Acid (Vitamin C) (C-500) 500 mg tablet extended release Active 500 mg PO DAILY May 18, 2024 1:00am Start: 08-03-2021 End: 11-02-2021 take 1 tablet by mouth once daily Ascorbic Acid (Vitamin C) 500 mg tablet Discontinued 500 mg PO DAILY August 03, 2021 1:00am November 02, 2021 9:50am ascorbic acid (V ITAMIN C ORAL) Take by mouth. 0 Active Comment on above: Take by mouth. cholecalciferol 0.25 mg oral tablet (11 sources) Vitamin D Start: 2 take 1 tablet by mouth once daily Cholecalciferol (Vitamin D3) 250 mcg (10,000 unit) tablet Active 250 ug PO DAILY August 03, 2021 1:00am Cyanocobalamin-Liver Extract tablet (2 sources) Start: 4 Cyanocobalamin-Liver Extract tablet Active 5000 {tbl} PO DAILY May 18, 2024 1:00am Magnesium (11 sources) Start: 2 take 200 mg by mouth once daily Magnesium Active 200 MG PO DAILY August 03, 2021 11:48am Start: 08-03-2021 take 1 tablet by kaycee th once daily Magnesium 200 mg tablet Active 200 mg PO DAILY August 03, 2021 1:00am Start: 08-03-2021 take 200 mg by mouth once ori y Magnesium Active 200 MG PO DAILY August 03, 2021 12:00am Start: 08-03-2021 take 200 mg by mouth once ori y Magnesium Active 200 MG PO DAILY August 03, 2021 1:00am pitavastatin calcium 1 mg oral tablet (2 sources) HMG-CoA Reductase Inhibitor Start: 05-18-2024 take 1 tablet by mouth at bedtime Pitavastatin Calcium 1 mg tablet Active 1 mg PO AT BEDTIME May 18, 2024 1:00am pregabalin 75 mg oral capsule (20 sources) Start: 08-03-2021 End: 11-02-2021 take 1 capsule by mouth four times daily Pregabalin (Lyrica) 75 mg capsule Active 75 mg PO 4 TIMES DAILY November 02, 2021 9:51am Comment on above: Take 75 mg by mouth four times daily. tiZANidine 2 mg oral capsule (10 sources) Central alpha-2 Adrenergic Agonist Start: 02-01-2022 take 1 capsule by mouth every eight hours as needed Tizanidine (Zanaflex) 2 mg capsule Active 2 mg PO Q8H as needed for muscle spasticity February 01, 2022 12:00am Start: 03-04-2019 tiZANidine (ZA NAFLEX) 4 mg tablet as needed. 0 03/04/2019 Active Comment on above: as needed. Vitamin B Complex capsule (2 sources) Start: 05-06-2024 Vitamin B Comp [place] capsule Active 1 NMA PO daily May 06, 2024 12:00am Completed/Discontinued Medications Medication Drug Class(es) Dates Sig (Normalized) Sig (Original) acetaminophen 325 mg / HYDROcodone bitartrate 5 mg oral tablet (11 sources) Opioid Agonist Start: 11-24-2018 End: 11-27-2018 Hydrocodone-Acetami nophen 1 TABLET tablet Discontinued 1 {tbl} PO EVERY 6 HOURS NEEDED as needed for Pain 10 3 November 24, 2018 12:00am November 26, 2018 12:00am November 27, 2018 12:06am Start: 11-24-2018 End: 11-27-2018 take 1 tablet by mouth every six hours as needed Hydrocodone-Acetaminophen Discontinued 1 TABLET PO EVERY 6 HOURS NEEDED 10 3 November 24, 2018 12:00am November 27, 2018 12:06am amLODIPine 5 mg oral tablet (11 sources) Dihydropyridine Calcium Channel Zaria Start: 08-03-2021 End: 02-01-2022 take 1 tablet by mouth once daily Amlodipine 5 mg tablet Discontinued 5 mg PO DAILY August 03, 2021 1:00am February 01, 2022 10:07am armodafinil 150 mg oral tablet (12 sources) Start: 12-22-2018 End: 08-03-2021 take 1 tablet by mouth at bedtime Armodafinil 150 MG tablet Discontinued 75 mg PO AT BEDTIME December 22, 2018 12:00am August 03, 2021 11:46am 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 For shift work disorder 0 Active Comment on above: Take 75 mg by mouth once daily. For shift work disorder 168 hr buprenorphine 0.005 mg/hr transdermal system (1 source) Partial Opioid Agonist Start : 02-02 buprenorphine (BUTRANS) 5 mcg/hour CAPSICUM, CAYENNE, ORAL (1 source) CAPSICUM, CAYENN E, ORAL Take by mouth. 0 Active Comment on above: Take by mouth. cephalexin 500 mg oral capsule (6 sources) Cephalosporin Antibacterial Start : 02-03 End: 07-17 take 1 capsule by mouth every six hours Cephalexin 500 mg capsule Discontinued 500 mg PO EVERY 6 HOURS February 03, 2023 12:00am July 17, 2023 2:42pm cholecalciferol, vitamin D3, (VITAMIN D3 ORAL) (1 source) cholecalciferol, vitamin D3, (VITAMIN D3 ORAL) Take by mouth. 0 Active Comment on above: Take by mouth. cyanocobalamin, vitamin B-12, (VITAMIN B-12 ORAL) (1 source) cyanocobalamin, vitamin B-12, (VITAMIN B-12 ORAL) Take by mouth. 0 Active Comment on above: Take by mouth. cyclobenzaprine hydrochloride 10 mg oral tablet (6 sources) Muscle Relaxant Start : 08-08 End: 07-17 take 1 tablet by mouth at bedtime Cyclobenzaprine 10 mg tablet Discontinued 10 mg PO BEDTIME August 08, 2022 1:00am July 17, 2023 2:42pm diazePAM 2 mg oral tablet (11 sources) Benzodiazepine Start : 01-23 End: 01-30 take 1 tablet by mouth three times daily as needed for muscle spasms Diazepam 2 MG tablet Discontinued 2 mg PO 3 TIMES DAILY NEEDED as needed for Spasms 20 7 January 23, 2019 12:00am January 29, 2019 12:00am January 30, 2019 12:08am DULoxetine 20 mg delayed release oral capsule (1 source) Serotonin and Norepinephrine Reuptake Inhibitor Start : 02-23 DULoxetine (CYMBALTA) 20 mg capsule 0.4 ml enoxaparin sodium 100 mg/ml prefilled syringe (11 sources) Low Molecular Weight Heparin Start : 01-06 End: 08-03 Enoxaparin (Lovenox) 40 mg/0.4 mL syringe Discontinued 40 mg SC DAILY January 06, 2019 12:00am August 03, 2021 11:46am gabapentin 300 mg oral capsule (1 source) Anti-epileptic Agent Start : 01-30 gabapentin (NEURONTIN) 300 mg capsule RAMÍREZ ORAL (1 source) RAMÍREZ ORAL T luca by mouth. 0 Active Comment on above: Take by mouth. hydroCHLOROthiazide 25 mg oral tablet (11 sources) Thiazide Diuretic Start : 08-03 End: 11-02 take 1 tablet by mouth once daily Hydrochlorothiazide 25 mg tablet Discontinued 25 mg PO DAILY August 03, 2021 1:00am November 02, 2021 9:51am metoprolol tartrate 50 mg oral tablet (10 sources) beta-Adrenergic Zaria Start : 11-02 End: 02-01 take 1 tablet by mouth every hour Metoprolol Tartrate 50 mg tablet Discontinued 50 mg PO DAILY November 02, 2021 12:00am February 01, 2022 10:08am Take one tablet [address] calcium scoring nortriptyline 75 mg oral capsule (10 sources) Tricyclic Antidepressant Start : 02-01 End: 08-08 take 1 capsule by mouth once daily Nortriptyline 75 mg capsule Discontinued 75 mg PO DAILY February 01, 2022 12:00am August 08, 2022 11:01am Start: 03-13-2019 nortriptyline (PAMELOR) 50 mg capsule 10 mg. 0 03/13/2019 Active Comment on above: 10 mg. omeprazole 20 mg delayed release oral capsule (12 sources) Proton Pump Inhibitor Start: 12-18-19 End: 08-03-19 take 1 capsule by mouth at bedtime Omeprazole 20 MG capsule,delayed release(DR/EC) Discontinued 20 mg PO AT BEDTIME December 17, 2018 12:00am August 03, 2021 11:46am Comment on above: Take 20 mg by mouth once daily. oseltamivir 75 mg oral capsule (11 sources) Neuraminidase Inhibitor Start: 07-17-19 End: 07-22-19 take 1 capsule by mouth twice daily Oseltamivir 75 mg capsule Discontinued 75 mg PO TWICE A DAY 10 July 17, 2023 1:00am July 21, 2023 1:00am July 22, 2023 1:04am Start: 07-12-2022 End: 07-17-2022 take 1 capsule by mouth twice daily Oseltamivir (Tamiflu) 75 mg capsule Discontinued 75 mg PO TWICE A DAY 10 July 12, 2022 1:00am July 16, 2022 1:00am July 17, 2022 1:04am oxyCODONE hydrochloride 5 mg oral tablet (12 sources) Opioid Agonist Start: 01-23-2019 End: 01-28-2019 take 2 tablets by mouth every six hours as needed for pain Oxycodone 5 MG tablet Discontinued 10 mg PO EVERY 6 HOURS NEEDED as needed for Pain 60 5 January 23, 2019 January 27, 2019 12:00am January 28, 2019 12:07am 1-2 EVERY 6 HOURS NEEDED FOR PAIN Start: 01-23-2019 End: 01-28-2019 take 10 mg by mouth every six hours as needed for pain Oxycodone Discontinued 10 MG PO EVERY 6 HOURS NEEDED 60 5 January 23, 2019 January 28, 2019 12:07am 1-2 EVERY 6 HOURS NEEDED FOR PAIN take 1 tablet by kaycee th every eight hours as needed oxyCODONE IR (ROXICODONE) 5 mg immediate release tablet Take 5 mg by mouth every 8 hours as needed. 0 Active Comment on above: Take 5 mg by mouth e very 8 hours as needed. rosuvastatin calcium 5 mg oral tablet (11 sources) HMG-CoA Reductase Inhibitor Start: 2 End: 2 take 1 tablet by mouth once daily Rosuvastatin 5 mg tablet Discontinued 5 mg PO DAILY August 03, 2021 1:00am February 01, 2022 10:08am valsartan 40 mg oral tablet (20 sources) Angiotensin 2 Receptor Zaria Start: 2 valsartan (DIOVAN) 40 mg tablet Start: 02-01-2022 Valsartan 80 m g tablet Active 40 mg PO AT BEDTIME February 01, 2022 10:06am Start: 02-01-2022 take 40 mg by mouth once daily Valsartan Active 40 MG PO DAILY February 01, 2022 10:06am Start: 08-03-2021 End: 02-01-2022 take 1 tablet by mouth twice daily Valsartan 80 mg tablet Discontinued 80 mg PO TWICE A DAY 60 August 03, 2021 12:19pm February 01, 2022 10:08am Start: 08-03-2021 End: 08-03-2021 take 1 tablet by mouth once daily Valsartan 80 mg tablet Discontinued 80 mg PO DAILY August 03, 2021 1:00am August 03, 2021 12:19pm VITAMIN B COMPLEX ORAL (1 source) VITAMIN B COMPLE X ORAL Take by mouth. 0 Active Comment on above: Take by mouth. Problems Active Problems Problem Classification Problem Date Documented Date Episodic/Chronic Complications of surgical procedures or medical care (11 sources) Non-healing surgical wound; Translations: [Other complications of procedures, not elsewhere classified, initial encounter] 04-30-2019 Episodic Comment on above: Left Forearm. Disorders of lipid metabolism (16 sources) Mixed hyperlipidemia; Translations: [Mixed hyperlipidemia] Onset: 03-22-2006 Chronic Essential hypertension (19 sources) Essential hypertension; Translations: [Essential (primary) hypertension] Onset: 04-11-2007 Chronic Comment on above: CONTROLLED WITH MED Influenza (10 sources) Influenza due to Influenza A virus; Translations: [Influenza due to other identified influenza virus with other respiratory manifestations] Episodic Malaise and fatigue (11 sources) Fatigue; Translations: [Other fatigue] Episodic Nonspecific chest pain (15 sources) Chest pain; Translations: [Chest pain, unspecified] Episodic Osteoarthritis (4 sources) Arthritis of left subtalar joint; Translations: [Primary osteoarthritis, left ankle and foot] Onset: 05-25-2024 06-02-2024 Chronic Other connective tissue disease (2 sources) Foot pain; Translations: [Pain in left foot] 05-22-2024 Episodic Other connective tissue disease (1 source) Peroneal tendinitis, left leg; Translations: [Peroneal tendinitis, left leg] Onset: 10-23-2024 Episodic Other ear and sense organ disorders (8 sources) Impacted cerumen; Translations: [Impacted cerumen, right ear] 07-12-2022 Episodic Other ear and sense organ disorders (2 sources) Impacted cerumen, right ear; Translations: [Impacted cerumen] Episodic Other injuries and conditions due to external causes (8 sources) Blunt injury of abdomen; Translations: [Unspecified injury of abdomen, initial encounter] 07-22-2022 Episodic Other nervous system disorders (1 source) Carpal tunnel syndrome of left wrist; Translations: [Carpal tunnel syndrome, left upper limb] Chronic Other nervous system disorders (1 source) Lesion of ulnar nerve, left upper limb; Translations: [Lesion of ulnar nerve] Chronic Other nutritional; endocrine; and metabolic disorders (1 source) Obese class I; Translations: [Obesity, unspecified] Onset: 12-24-2018 12-24-2018 Chronic Other nutritional; endocrine; and metabolic disorders (1 source) Obese class II; Translations: [Obesity, unspecified] Onset: 12-27-2018 12-27-2018 Chronic Other upper respiratory disease (1 source) Rhinitis; Translations: [Chronic rhinitis] Onset: 03-21-2011 03-21-2011 Chronic Poisoning by nonmedicinal substances (5 sources) Hymenoptera sting; Translations: [Hymenoptera sting] 02-11-2023 Episodic Residual codes; unclassified (1 source) Obstructive sleep apnea syndrome; Translations: [Obstructive sleep apnea (adult) (pediatric)] Onset: 03-21-2011 03-21-2011 Chronic Skin and subcutaneous tissue infections (11 sources) Cellulitis of upper limb; Translations: [Cellulitis of unspecified part of limb] 02-03-2023 Episodic Spondylosis; intervertebral disc disorders; other back problems (1 source) Degeneration of intervertebral disc; Translations: [Degeneration of intervertebral disc, site unspecified] Onset: 04-12-2007 04-24-2010 Chronic Superficial injury; contusion (8 sources) Contusion of trunk; Translations: [Contusion of abdominal wall, initial encounter] 07-22-2022 Episodic Past or Other Problems Problem Classification Problem Date Documented Da te Episodic/Chronic Crushing injury or internal injury (1 source) Injury of radial artery; Translations: [Unspecified injury of radial artery at forearm level, left arm, initial encounter] Onset: 12-24-2018 12-25-2018 Episodic Other circulatory disease (1 source) Limb ischemia; Translations: [Other disorder of circulatory system] Onset: 12-24-2018 12-24-2018 Episodic Other connective tissue disease (1 source) Tendinitis of ankle; Translations: [Other enthesopathy of unspecified foot and ankle] Onset: 08-16-2010 08-16-2010 Episodic Other connective tissue disease (2 sources) Pain in left foot; Translations: [Pain in left foot] Onset: 05-25-2024 Episodic Other connective tissue disease (1 source) Pain in left lower leg; Translations: [Pain in left lower leg] Onset: 08-26-2024 Episodic Spondylosis; intervertebral disc disorders; other back problems (1 source) Low back pain; Translations: [Lumbago] Onset: 04-22-2007 04-24-2010 Episodic Results Test Name Value Interpretation Reference Range Facility Magnetic resonance imaging r eportOrdered By: Nahed Rm on 10-22-2024 Study report [facility] Imaging Services [address] [place] [address] Lower Ext Joint Only (Routine) MR#: [id number] Acct: [id number] Name: IRENE NIETO Rep #: [id number] : 1965 M 59 From: Jeannie Rm MD PCP: Dr. Luis Enrique Napier MD Status: OJ HERNANDEZ Study:Lower Ext Joint Only (Routine) Date of Exam: 10/19/24 Exam# [id number] Ordering Dr: Carlos Kirby DPM EXAM: MRI LEFT ANKLE WITHOUT CONTRAST. CLINICAL HISTORY: Chronic left subtalar and lateral ankle pain since surgery for peroneal tendon repair on 05/2024. COMPARISON: CT scan on 08/28/2024. TECHNIQUE: Standardized fat and water weighted pulse sequences were obtained in all 3 orthogonal planes. FINDINGS: Surgical changes of the peroneal tendons. 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 Two intact subtalar joint fixation screws are again noted in place. Heterogeneous signal intensity of the visualized bone marrow, probably osteopenia. Moderate diffuse bone marrow edema of the calcaneus. Mild multifocal bone marrowedema of the remaining tarsal bones. Associated soft tissue edema and swelling. Nonspecific finding is represents fibrovascularreaction from repetitive minor trauma versus reflex sympathetic dystrophy. Mild tibiotalar joint effusion. Mild subtalar joint effusion. Mild effusion in the sinus tarsus. Mild edema of the subtalar ligaments. Small calcaneal spur formation. Mild tendinosis of the calcaneal insertional fibers of Achilles tendon. There is no evidence of replacement or fracture. No abnormality is seen in the posterior tibialis, flexor digitorum longus tendonand flexor hallucis longus tendon. The peroneus longus and brevis tendons are otherwise unremarkable. The tibialis anterior, extensor hallucis longus and extensor digitorum longus tendons are unremarkable. Unremarkable plantar fascia. Normal intrinsic muscles of the rearfoot. No abnormality is seen distal tibiofibular syndesmotic ligamentous complex. No abnormality is seen in lateral ligamentous complex. No abnormality is seen deltoid ligamentous complexes. The plantar calcaneonavicular (spring) ligament is unremarkable. Mild degenerative joint disease of the tibiotalar articulation. Normal talar dome. Mild degenerative joint disease of the subtalar articulations. Mild degenerative joint disease of the talonavicular articulation. Mild degenerative joint disease of the calcaneocuboid articulation. Mild degenerative joint disease of the navicular-cuneiform articulations. MRI/Lower Ext Joint Only (Routine) IMPRESSION: 1. Surgical changes of the peroneal tendons. 2. 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 3. Two intact subtalar joint fixation screws are again noted in place. 4. Heterogeneous signal intensity of the visualized bone marrow, probably osteopenia. 5. Moderate diffuse bone marrow edema of the calcaneus. Mild multifocal bone marrow edema of the remaining tarsal bones. Associated soft tissue edema and swelling. Nonspecific finding is represents fibrovascular reaction from repetitive minor trauma versus reflex sympathetic dystrophy. 6. Mild tibiotalar joint effusion. 7. Mild subtalar joint effusion. 8. Mild effusion in the sinus tarsus. 9. Mild edema of the subtalar ligaments. 10. Small calcaneal spur formation. 11. Degenerative joint disease. Reading Location: [place] [address] CC: ZAN Kirby; Dr. Luis Enrique Napier MD ~ Supervisor [employer]: Signed [facility] Lower Ext Joint Only (Routin e)on 10-19-2024 Lower Ext Joint Only (Routine) [facility] Imaging Services [address] [place] [id number] Lower Ext Joint Only (Routine) MR#: [id number] Acct: [id number] Name: IRENE NIETO Rep #: [id number] : 1965 M 59 From: Nahed fisher MD PCP: Dr. Luis Enrique Napier MD Status: REG CLI Study: Lower Ext Joint Only (Routine) Date of Exam: 0 10/19/24 Exam# [id number] Ordering Dr: Carlos Kirby DPM EXAM: MRI LEFT ANKLE WITHOUT CONTRAST. CLINICAL HISTORY: Chronic left subtalar and lateral ankle pain since surgery for peroneal tendon repair on 05/2024. COMPARISON: CT scan on 08/28/2024. TECHNIQUE: Standardized fat and water weighted pulse sequences were obtained in all 3 orthogonal planes. FINDINGS: Surgical changes of the peroneal tendons. 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 Two intact subtalar joint fixation screws are again noted in place. Heterogeneous signal intensity of the visualized bone marrow, probably osteopenia. Moderate diffuse bone marrow edema of the calcaneus. Mild multifocal bone marrow edema of the remaining tarsal bones. Associated soft tissue edema and swelling. Nonspecific finding is represents fibrovascular reaction from repetitive minor trauma versus reflex sympathetic dystrophy. Mild tibiotalar joint effusion. Mild subtalar joint effusion. Mild effusion in the sinus tarsus. Mild edema of the subtalar ligaments. Small calcaneal spur formation. Mild tendinosis of the calcaneal insertional fibers of Achilles tendon. There is no evidence of replacement or fracture. No abnormality is seen in the posterior tibialis, flexor digitorum longus tendon and flexor hallucis longus tendon. The peroneus longus and brevis tendons are otherwise unremarkable. The tibialis anterior, extensor hallucis longus and extensor digitorum longus tendons are unremarkable. Unremarkable plantar fascia. Normal intrinsic muscles of the rearfoot. No abnormality is seen distal tibiofibular syndesmotic ligamentous complex. No abnormality is seen in lateral ligamentous complex. No abnormality is seen deltoid ligamentous complexes. The plantar calcaneonavicular (spring) ligament is unremarkable. Mild degenerative joint disease of the tibiotalar articulation. Normal talar dome. Mild degenerative joint disease of the subtalar articulations. Mild degenerative joint disease of the talonavicular articulation. Mild degenerative joint disease of the calcaneocuboid articulation. Mild degenerative joint disease of the navicular-cuneiform articulations. MRI/Lower Ext Joint Only (Routine) IMPRESSION: 1. Surgical changes of the peroneal tendons. 2. 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 3. Two intact subtalar joint fixation screws are again noted in place. 4. Heterogeneous signal intensity of the visualized bone marrow, probably osteopenia. 5. Moderate diffuse bone marrow edema of the calcaneus. Mild multifocal bone marrow edema of the remaining tarsal bones. Associated soft tissue edema and swelling. Nonspecific finding is represents fibrovascular reaction from repetitive minor trauma versus reflex sympathetic dystrophy. 6. Mild tibiotalar joint effusion. 7. Mild subtalar joint effusion. 8. Mild effusion in the sinus tarsus. 9. Mild edema of the subtalar ligaments. 10. Small calcaneal spur formation. 11. Degenerative joint disease. Reading Location: [place] [address] CC: ZAN Kirby; Dr. 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 [place] [address] / REEVALUATION / MEDICARE RECERTIFICATION PHYSICAL THERAPY MR#: [id number] Acct: [id number] Name: IRENE NIETO Rep #: [id number] : 1965 59 From: Manjit Esqueda DPT, OCS, CSCS Referring Dr.: ZAN Kirby Status:REG RC R Insurance: MEDICARE PART A B MEDICAID [place] Re-Evaluation Intro: Dr. Carlos Kirby, ZAN, It has been my pleasure to treat IRENE NIETO over the last 19 visits for s/p subtalar joint arthrodesis 05/22/24. Please see the progress note below for an update on the physical therapy plan of care! Subjective Subjective: Going the right way slowly. Having sound waves treatments every two weeks and has had 3 of them. The last one really helped. Still doing therapy and has been better the last week. No episodes of having to sit down adn get off feet. 12/15 this week with walking, uses crutch if he gets too painful or has lots of walking but not for daily walking. Doing HEP daily and proprioceptive at home daily. To doctor next week. Last x ray and CTSCAN showed it is still healing. Will have MRI to check for soft tissue inflammation. MRI will be next week. Objective Objective/Function: 35 PF and 1 degree DF L knee. Not improving ROM, not necessaryily unexpectedly. Antalgic on L and avoids L push off. Is weak in singlle leg heel raise L 3/+/5 and needs more strngth here but pain is his main problem which is higher than expected. He is managing this with orthotics, RPW at doctor office and has MRI that will hopefully show the cause. Will continue HEP in meantime. Plan Plan Plan: pt to call after doctor visit/MRI for f/u as needed. Will continue HEP strengthening adn ROM which I expect will help with his strength but ROM is stagnant. pain is his biggest issue. Balance/Gait/Functional tests Balance/Special Test Scores Lower Extremity Functional Score: 40 Goals Goals Goal 1:: AROM 4 DF and 40 PF L to help ambulate. Goal Time Frame: 4-6 Weeks Goal Progress: Not Progressing Goal 2:: I appropriate HEP to limit future problems strength adn stretch L ankle Goal Time Frame: 4-6 Weeks Goal Progress: Goal Met Goal 3:: walk without gait deviations without boot in community Goal Time Frame: 4-6 Weeks Goal Progress: weakness and pain limit Goal 4:: steps reciprocally without rail needed Goal Time Frame: 4-6 Weeks Goal Progress: Progressing Goal 5:: LEFS score40 Goal Time Frame: 4-6 Weeks Goal Progress: Goal Met Goal 6:: Plan to hike in fall Goal Time Frame: 4-6 Weeks Goal Progress: Progressing, approp Anticipated Interventions Anticipated Interventions Patient/Client Instruction: Educate patient on: Condition and Plan of Care For the Purpose of:: To decrease pain, To increase ROM, To improve nutrient delivery to tissue, To improve muscle performance and motor function and To increase tolerance to activity/condition/posit ion Therapeutic Exercise to Include: Strength training, Flexibilty training, Gait and locomotor training, Passive ROM and Active ROM For the Purpose of:: To decrease pain, To increase ROM, To improve nutrient delivery to tissue, To improve muscle performance and motor function, To increase tolerance to activity/condition/posit ion, To improve ability of physical actions for home/community/work/leis ure and To improve gait and locomotor functions Manual Therapy Techniques to Include: Scar massage, Mobilization, Passive ROM and Soft tissue mobilization For the Purpose of:: To decrease pain, To increase ROM, To improve nutrient delivery to tissue, To improve muscle performance and motor function, To increase tolerance to activity/condition/posit ion and To increase flexibility/ROM Cryotherapy (ice pack, ice massage): Yes Thermo therapy (hot pack): Yes For the Purpose of:: To decrease pain, To increase ROM, To improve nutrient delivery to tissue, To improve muscle performance and motor function, To increase tolerance to activity/condition/posit ion and To improve ability of physical actions for home/community/work/leis ure Re-Evaluation Ending Re-evaluation ending: Please do not hesitate to contact me at [phone] by phone or if you have questions or concerns regarding this new plan of care! Sincerely, Manjit Esqueda, DPT, OCS, CSCS 10/08/24 1021 CC: ZAN Kirby; Dr. Luis Enrique Napier MD EBG Signed For Medicare only, by signing this I certify the plan of care. ____ Physicians Signature Date Normal [facility] Re-Evaluation - PT (1)on Re-Evaluation - PT (1) [facility] [address] [place] [address] / REEVALUATION / MEDICARE RECERTIFICATION PHYSICAL THERAPY MR#: [id number] Acct: [id number] Name: IRENE NIETO Rep #: [id number] : 1965 59 From: Manjit Esqueda DPT, OCS, CSCS Referring Dr.: ZAN Kirby Status:REG RC R Insurance: MEDICARE PART A B MEDICAID [place] Re-Evaluation Intro: Dr. Carlos Kirby, ZAN, It has been my pleasure to treat IRENE NIETO over the last 11 visits for s/p subtalar joint arthrodesis 05/22/24. Please see the progress note below for an update on the physical therapy plan of care! Subjective Subjective: Saw doctor and wants more PT. using crutch today for lateral painL ankleat malleolie. 02/14 intrmittent when he is on it. Worse last weekend, went to Auto show on knee scooter but did not use it alot. Got worse ovr the weekend after that. HEP going well. Objective Objective/Function: ROM same as last time, very tender over peroneals L especially at insertion, mildly swollen today. Walking with crutch in R UE to diminish WB L, antalgic without it. Plan Plan Plan: 2x/week for 4 weeks with new script for peroneal tendonitis treeat with US to R lateral peroneals nonthermal TENS and VASO until inflammation down, STM to foot and ankle and PF and CFM to peroneal L Progress when painfree to proprioceptive x. New goals(still appropriate), new POC, fair prognosis Balance/Gait/Functional tests Balance/Special Test Scores Lower Extremity Functional Score: 31 Goals Goals Goal 1:: AROM 4 DF and 40 PF L to help ambulate. Goal Time Frame: 4-6 Weeks Goal Progress: Progressing Goal 2:: I appropriate HEP to limit future problems strength adn stretch L ankle Goal Time Frame: 4-6 Weeks Goal Progress: approp Goal 3:: walk without gait deviations without boot in community Goal Time Frame: 4-6 Weeks Goal Progress: approp Goal 4:: steps reciprocally without rail needed Goal Time Frame: 4-6 Weeks Goal Progress: approp Goal 5:: LEFS score40 Goal Time Frame: 4-6 Weeks Goal Progress: Progressing, approp Goal 6:: Plan to hike in fall Goal Time Frame: 4-6 Weeks Goal Progress: Progressing, approp Anticipated Interventions Anticipated Interventions Patient/Client Instruction: Educate patient on: Condition and Plan of Care For the Purpose of:: To decrease pain, To increase ROM, To improve nutrient delivery to tissue, To improve muscle performance and motor function and To increase tolerance to activity/condi tion/position Therapeutic Exercise to Include: Strength training, Flexibilty training, Gait and locomotor training, Passive ROM and Active ROM For the Purpose of:: To decrease pain, To increase ROM, To improve nutrient delivery to tissue, To improve muscle performance and motor function, To increase tolerance to activity/condition/posit ion, To improve ability of physical actions for home/community/work/leis ure and To improve gait and locomotor functions Manual Therapy Techniques to Include: Scar massage, Mobilization, Passive ROM and Soft tissue mobilization For the Purpose of:: To decrease pain, To increase ROM, To improve nutrient delivery to tissue, To improve muscle performance and motor function, To increase tolerance to activity/condition/posit ion and To increase flexibility/ROM Cryotherapy (ice pack, ice massage): Yes Thermo therapy (hot pack): Yes For the Purpose of:: To decrease pain, To increase ROM, To improve nutrient delivery to tissue, To improve muscle performance and motor function, To increase tolerance to activity/condition/posit ion and To improve ability of physical actions for home/community/work/leis ure Re-Evaluation Ending Re-evaluation ending: Please do not hesitate to contact me at [phone] by phone or if you have questions or concerns regarding this new plan of care! Sincerely, Manjit Esqueda DPT, OCS, CSCS 09/11/24 0943 CC: ZAN Kirby; Dr. Luis Enrique Napier MD EBG Signed For Medicare only, by signing this I certify the plan of care. ____ Physicians Signature Date Normal [facility] PT D/C Summary (1)on 025 PT D/C Summary (1) [facility] [place] [address] / REHABILITATION SERVICES DISCHARGE SUMMARY MR#: [id number] Acct: [id number] Name: IRENE NIETO Rep #: [id number] : 1965 59 From: Manjit Esqueda DPT, OCS, CSCS Referring Dr.: ZAN Kirby Status: REG RCR Insurance: MEDICARE PART A B MEDICAID [place] Discharge Summary D/C summary: It has been my pleasure to treat IRENE NIETO referred by Dr. Carlos Kirby, ZAN, with the diagnosis of s/p subtalar joint arthrodesis 05/22/24 for a total of 10 visit(s). Discharge Date: 09/02/24 Please see the following information for a summary of their discharge status. Subjective Subjective: Getting better ROM. Pain is stabboing at times, described this week as 7/10 at times with walking and 2/10 at rest. Sleep is interrupted sometimes in thatoutside of ankle can hurt. Using pillow between feet. Not in boot anymore. Activities: at home is avoiding lifting and excessive walking. laundry basket is partially full or two hands of groceries is avoided. Gets aorund house OK but steps are slow. Goes to grocery store but sometimes off loads with crutch. Uses power chair at store. Had CT last week and Dr. Kirby in am. Doing Exercises daily at home. Pain L foot: Pain Intensity (Out of 10): 3 Overall Improvement % Improvement: 40 Objective Objective/Function: 3 degree DF, 23 degree PF in L ankle 7 inv and 8 eversion. Tender maximally lateral L foot. strength in ankle is 4+/5 without much pain. Gait is I but hurts L lateral foot with push off every step 7/10 and short L stanc time. Stands with L foot pointing out until cued. Steps are reciprocal with two railings and avoids forefoot use with descending. Improved ROM and mobility minimally but pain persists. Goals Goal 1:: AROM 4 DF and 40 PF L to help ambulate. Goal Progress: Progressing Goal 2:: I appropriate HEP to limit future problems strength adn stretch L ankle Goal Progress: Goal Met Goal 3:: walk without gait deviations without boot in community Goal Progress: Not Progressing Goal 4:: steps reciprocally without rail needed Goal Progress: Not Progressing Goal 5:: LEFS score40 Goal Progress: Progressing Goal 6:: Plan to hike in fall Goal Progress: Progressing Plan Plan: F/U with doctor for other options, CT review tomorrow d/c PT but happy to see longer if no other options. D/C Information Discharge Comments: To doctor tomorrow for f/u. d/c sentence: If there are questions or concerns regarding this patient's physical therapy, please feel free to call me at [phone]. Thank you for the referral of this patient. Sincerely, Manjit Esqueda, DPT, OCS, CSCS Balance/Gait/Functional tests Balance/Special Test Scores Lower Extremity Functional Score: 31 Improvement % Improvement: 40 09/02/24 1153 CC: ZAN Kirby; Dr. Luis Enrique Napier MD EBG Signed Normal [facility] Extremity Lower without Cont raon 08-28-2024 Extremity Lower without Contra [facility] Imaging Services [address] [place], [place] [id number] Extremity Lower without Contra MR#: [id number] Acct: [id number] Name: IRENE NIETO Rep #: [id number] : 1965 M 59 From: Bonnie Muhammad PCP: Dr. Luis Enrique Napier MD Status: REG CLI Study: Extremity Lower without Contra Date of Exam: 0 08/28/24 Exam# [id number] Ordering Dr: Carlos Kirby DPEdgar PROCEDURE: CT left foot without IV contrast REASON FOR EXAM: Pain TECHNIQUE: Multiple contiguous axial images through the left foot were obtained without the administration of intravenous contrast. Two-dimensional coronal and sagittal reformatted images were reconstructed. Low-dose imaging technique was utilized. COMPARISON: None. FINDINGS: See impression. CT/Extremity Lower without Contra IMPRESSION: Two intact subtalar joint fixation screws in place. 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 No evidence of acute fracture or malalignment. No significant arthropathy. Moderate/severe osteopenia which may relate to disuse. Calcaneal enthesopathy. Mild scarring along the deep aspect of Kager's fat pad. Mild diffuse subcutaneous edema. No drainable fluid collection. External contours of the ankle tendons are grossly intact. One or more dose reduction techniques were used (e.g., Automated exposure control, adjustment of the mA and/or kV according to patient size, use of iterative reconstruction technique). Reading Location: [facility] CC: DPM Dr. Carlos Kirby; Dr. Luis Enrique Napier MD Supervisor Dairy Sanitation: Signed Normal [facility] Venous Duplex US, Unilateral on 08-11-2024 Venous Duplex US, Unilateral [facility] [address] [place] [address] Venous Duplex US, Unilateral 08/11/24 1250 MR#: [id number] Acct: [id number] Name: IRENE NIETO Rep #: [id number] : 1965 59 From: Adiel Cuevas MD Attending Dr: Dr. Carlos Kirby DPM Status: REG CLI Ordering Dr: Carlos Kirby DPM Date: 08/11/24 Location: [facility] Sex: M C Admitted: Reason For Study: LLE PAin RIGHT LEFT CFV is compressible, spontaneous, phasic, GSV is normal. competent and demonstrates normal CFV is compressible, spontaneous, phasic, augmentation. competent, and demonstrates normal Procedure augmentation. This is a venous duplex using B-mode, color FV is compressible, spontaneous, phasic, flow and spectral Doppler. competent and demonstrates normal Exam performed in department. augmentation. The exam was diagnostic. POP V is compressible, spontaneous, phasic, A preliminary report was called and/or faxed competent and demonstrates normal to Dr. Kirby office. augmentation. T/P Trunk is compressible. PTV is compressible. LT PerV is compressible. VL/Venous Duplex US, Unilateral Interpretation Summary Deep veins of the left lower extremity are patent and compressible segmentally. There is no evidence of left lower extremity deep vein thrombosis. Valvular competence appears intact within the proximal deep venous system on the left . The left great saphenous vein appears patent and compressible segmentally. The right common femoral vein is patent and compressible . Ordering Physician: Carlos Kirby Referring Physician: Luis Enrique Napier Performed By: Santiago Brownlee, [facility] 08/11/241854 Date Adiel Cuevas MD CC: DPEdgar Kirby; Dr. Luis Enrique Napier MD Date Dictated: 08/11/24 1250 Date Transcribed: 08/11/241854 Supervisor Dairy Sanitation: Signed Normal [facility] Inital Evaluation (1) - PTon 08-03-2024 Inital Evaluation (1) - PT [facility] Physical Therapy [address] [place] [address] / REHABILITATION SERVICES INITIAL EVALUATION MR#: [id number] Acct: [id number] Name: IRENE NIETO Rep #: [id number] : 1965 59 From: Manjit Esqueda DPT, OCS, CSCS Referring Dr.: Dr. Carlos Kirby DPM Status: REG RCR Insurance: MEDICARE PART A B MEDICAID [place] Patient's Visit Information Visit Information Visit Information: IRENE NIETO is a 59 year old M referred to Physical Therapy by Dr. Carlos Kirby DPM with a diagnosis of s/p subtalar joint arthrodesis 05/22/24. Date of Evaluation: 08/03/24 Physical Therapist: Manjit Esqueda DPT, SAMMY, CSCS Visit Plan Frequency: 2x /Week Duration: 4-6 Weeks Plan: 2x/week x 4 weeks for IE HEP: AROM PF, DF, inv, Ev 15x towel DF stretch 10x, towel toe curls 50x, seated heel toe raises 15x, PROM PF 10x all 3x/day. treat with MH rollout to gastroc, PROM and mobs for DF, PF. metatarsal mobs, progressive ankle and foot ROM and strength. Gait training and stairs. ice as needed. Pt can be out of boot in clinic but is to wear it outside of clinic until doctor f/u Subjective Subjective: 05/22/24 arthrodesis subtalar and in boot NWB since then on foot. Had scooter. No exercises. Got WB 2 weeks ago and wearing boot most of time. Walking now with one crutch and boot. Sleep is not terrible but kept him up orginally. No exercises given yet. Not employed: nothing to do with foot. On disability due to L hand, comaprtment syndrome. When healthy takes care of [employer] and works around house adn [employer]. Currently driving but walking is slow and limited due to limitations. Being on foot long makes it hurt. uses power chair at store. not needed prior to surgery. basic ADLs currently all I. precautions : b oot on until f/u Steps at home are hard but uses crutch and railing. Pain L foot: Pain Intensity (Out of 10): 0 Pain Intensity Range: 0 and 9 Comment: worse with WB. Objective Objective: Walks into PT with crutch in R UE and boot on, L leg out to side and WBAT, much weight through crutch. Mod i with gait with deviations. Trnasfer chair and table I. AROM hip and knees WFL. L ankle AROM -5 DF, 28 PF, 12 inv and 0 eversion. PROM -3 DF, 33 PF, 15 inv and 3 eversion. L R is 5 DF, 45 PF, 22 inv and 12 eversion. strength is 4- L ankle with pain inv and ev. R is 5/5 no pain. metatarsals are stiff on L compared to R. big toe AROM WNL B and 4 strngth ext L and 4+ R. No pain. Incision is healed well adn mild scarring. Most notably tight in ankle movement L. Standing feet together hard to get heel down due to tightness but can weight shift gently without boot. Balance/Special Test Scores Lower Extremity Functional Score: 27 Goals Goal 1:: AROM 4 DF and 40 PF L to help ambulate. Goal Time Frame: 4-6 Weeks Goal 2:: I appropriate HEP to limit future problems strength adn stretch L ankle Goal Time Frame: 4-6 Weeks Goal 3:: walk without gait deviations without boot in community Goal Time Frame: 4-6 Weeks Goal 4:: steps reciprocally without rail needed Goal Time Frame: 4-6 Weeks Goal 5:: LEFS score40 Goal Time Frame: 4-6 Weeks Goal 6:: Plan to hike in fall Goal Time Frame: 4-6 Weeks Rehabilitation Potential Physical Therapy Diagnosis: stiff L foot and ankle limiting fucntional ambulation. Rehabilitation Potential: Fair Anticipated Interventions Patient/Client Instruction: Educate patient on: Condition and Plan of Care For the Purpose of:: To decrease pain, To increase ROM, To improve nutrient delivery to tissue, To improve muscle performance and motor function and To increase tolerance to activity/condition/posit ion Therapeutic Exercise to Include: Strength training, Flexibilty training, Gait and locomotor training, Passive ROM and Active ROM For the Purpose of:: To decrease pain, To increase ROM, To improve nutrient delivery to tissue, To improve muscle performance and motor function, To increase tolerance to activity/condition/posit ion, To improve ability of physical actions for home/community/work/leis ure and To improve gait and locomotor functions Manual Therapy Techniques to Include: Scar massage, Mobilization, Passive ROM and Soft tissue mobilization For the Purpose of:: To decrease pain, To increase ROM, To improve nutrient delivery to tissue, To improve muscle performance and motor function, To increase tolerance to activity/condition/posit ion and To increase flexibility/ROM Cryotherapy (ice pack, ice massage): Yes Thermo therapy (hot pack): Yes For the Purpose of:: To decrease pain, To increase ROM, To improve nutrient delivery to tissue, To improve muscle performance and motor function, To increase tolerance to activity/condition/posit ion and To improve ability of physical actions for home/community/work/leis u (more content not included)... Normal [facility] Albumin to globulin ratioOrd ered By: Luis Enrique Napier on 06-26-2024 Albumin/Globulin [Mass ratio] 0.9 {ratio} 0.9-2.4 [facility] Bilirubin, totalOrdered By: Luis Enrique Napier on 06-26-2024 Bilirubin [Mass/Vol] 0.60 mg/dL 0.20-1.00 [facility] Comment on above: For patients on eltr ombopag therapy, use of Dimension [place] TBIL is not recommended. Blood urea nitrogen (BUN)/cr eatinine ratioOrdered By: Luis Enrique Napier on 06-26-2024 Urea nitrogen/Creatinine [Mass ratio] 10.4 mg/mg 04-26 [facility] Carbon dioxide measurementOr dered By: Luis Enrique Napier on 06-26-2024 CO2 [Moles/Vol] 26.0 mmol/L 21.0-32.0 [facility] Chloride measurementOrdered By: Luis Enrique Napier on 06-26-2024 Chloride [Moles/Vol] 106 mmol/L 98-107 [facility] Comprehensive Metabolic Prof ilon 06-26-2024 Albumin [Mass/Vol] 3.6 g/dL Normal 3.2-5.0 [facility] Comment on above: Performed By: #### L 501.9910, L500.4100, L500.4050 #### [facility] [address] [place], [place], [id number] Albumin/Globulin [Mass ratio] 0.9 {ratio} Normal 0.9-2.4 [facility] Comment on above: Performed By: #### L 501.9910, L500.4100, L500.4050 #### [facility] [address] [place], [address] ALK P 86 U/L Normal 45-117 [facility] Comment on above: Performed By: #### L 501.9910, L500.4100, L500.4050 #### [facility] [address] [place], [address] ALT [Catalytic activity/Vol] 32 U/L Normal 16-61 [facility] Comment on above: Performed By: #### L 501.9910, L500.4100, L500.4050 #### [facility] [address] [place], [address] AST [Catalytic activity/Vol] 22 U/L Normal 15-37 [facility] Comment on above: Performed By: #### L 501.9910, L500.4100, L500.4050 #### [facility] [address] [place], [address] Bilirubin [Mass/Vol] 0.60 mg/dL Normal 0.20-1.00 [facility] Comment on above: Result Comment: For patients on eltrombopag therapy, use of Dimension [place] TBIL is not recommended. Performed By: #### L 501.9910, L500.4100, L500.4050 #### [facility] [address] [place], [address] BUN/CRE 10.4 RATIO Normal 10-20 [facility] Comment on above: Performed By: #### L 501.9910, L500.4100, L500.4050 #### [facility] [address] [place], [address] CA,Total 9.5 mg/dL Normal 8.5-10.1 [facility] Comment on above: Performed By: #### L 501.9910, L500.4100, L500.4050 #### [facility] [address] [place], [address] Chloride [Moles/Vol] 106 mmol/L Normal 98-107 [facility] Comment on above: Performed By: #### L 501.9910, L500.4100, L500.4050 #### [facility] [address] [place], [address] CO2 [Moles/Vol] 26.0 mmol/L Normal 21.0-32.0 [facility] Comment on above: Performed By: #### L 501.9910, L500.4100, L500.4050 #### [facility] [address] [place], [address] Creatinine [Mass/Vol] 1.06 mg/dL Normal 0.70-1.30 [facility] Comment on above: Result Comment: The validity of the calculated GFR GFRAA in patients over 70 years has not been determined. Clinical correlation is essential. Performed By: #### L 501.9910, L500.4100, L500.4050 #### [facility] [address] [place], [address] EST GFR - AA 91 mL/min Normal >60 [facility] Comment on above: Result Comment: Afri can Scottish GFR Calc Performed By: #### L 501.9910, L500.4100, L500.4050 #### [facility] [address] [place], [address] GAP 6 Normal 5-15 [facility] Comment on above: Performed By: #### L 501.9910, L500.4100, L500.4050 #### [facility] [address] [place], [address] GFR/1.73 sq M.predicted among non-blacks MDRD (S/P/Bld) [Vol rate/Area] 76 mL/min/{1.73_m2} Normal >60 [facility] Comment on above: Result Comment: Non- GFR Calc Performed By: #### L 501.9910, L500.4100, L500.4050 #### [facility] [address] [place], [address] Globulin (S) [Mass/Vol] 3.8 g/dL Normal 2.2-4.2 [facility] Comment on above: Performed By: #### L 501.9910, L500.4100, L500.4050 #### [facility] [address] [place], [address] Glucose [Mass/Vol] 88 mg/dL Normal 74-106 [facility] Comment on above: Performed By: #### L 501.9910, L500.4100, L500.4050 #### [facility] [address] [place], [address] Potassium [Moles/Vol] 4.2 mmol/L Normal 3.5-5.1 [facility] Comment on above: Performed By: #### L 501.9910, L500.4100, L500.4050 #### [facility] [address] [place], [address] Sodium [Moles/Vol] 138 mmol/L Normal 136-145 [facility] Comment on above: Performed By: #### L 501.9910, L500.4100, L500.4050 #### [facility] [address] [place], [address] T PROT 7.4 g/dL Normal 6.4-8.2 [facility] Comment on above: Performed By: #### L 501.9910, L500.4100, L500.4050 #### [facility] [address] [place], [address] Urea nitrogen [Mass/Vol] 11 mg/dL Normal 7-18 [facility] Comment on above: Performed By: #### L 501.9910, L500.4100, L500.4050 #### [facility] [address] [place], [place], [address] Estimated glomerular filtrat ion rate (GFR) AmericanOrdered By: Luis Enrique Napier on 06-26-2024 Estimated GFR (MDRD) Amer 91 mL/min >60 [facility] Comment on above: GFR Calc Glomerular filtration rate ( GFR) estimationOrdered By: Luis Enrique Napier on 06-26-2024 Estimated GFR (MDRD) Non-Af Amer 76 mL/min >60 [facility] Comment on above: Non- GFR Calc Glucose measurementOrdered B y: Luis Enrique Napier on 06-26-2024 Glucose [Mass/Vol] 88 mg/dL 74-106 [facility] High density lipoprotein (HD L) measurementOrdered By: Luis Enrique Napier on 06-26-2024 Cholesterol in HDL [Mass/Vol] 47 mg/dL >40 [facility] Comment on above: The drugs N-Acetylcy steine and Metamizole may falsely depress this assay. Reference Range HDL <40 mg/dL Low HDL Cholesterol HDL >or= 60 mg/dL High HDL Cholesterol Laboratory - Chemistry and C hemistry - challengeOrdered By: Luis Enrique Napier on 06-26-2024 AST [Catalytic activity/Vol] 22 U/L 15-37 [facility] Lipid Profileon 06-26-2024 Cholesterol [Mass/Vol] 236 mg/dL High 200 [facility] Comment on above: Result Comment: <200 mg/dL Desirable 200-240 mg/dL Borderline >240 mg/dL High Risk Performed By: #### L 501.9910, L500.4100, L500.4050 ####[facility] [address] [place], [place], [address] Cholesterol in HDL [Mass/Vol] 47 mg/dL Normal [facility] Comment on above: Result Comment: The drugs N-Acetylcysteine and Metamizole may falsely depress this assay. Reference Range HDL <40 mg/dL Low HDL Cholesterol HDL >or= 60 mg/dL High HDL Cholesterol Performed By: #### L 501.9910, L500.4100, L500.4050 ####[facility] [address] [place], [address] Cholesterol in LDL [Mass/Vol] 156 mg/dL High 0-130 [facility] Comment on above: Performed By: #### L 501.9910, L500.4100, L500.4050 ####[facility] [address] [place], [address] Cholesterol in VLDL [Mass/Vol] 33 mg/dL Normal 5-40 [facility] Comment on above: Performed By: #### L 501.9910, L500.4100, L500.4050 ####[facility] [address] [place], [address] Triglyceride [Mass/Vol] 163 mg/dL Normal [facility] Comment on above: Result Comment: The drugs N-Acetylcysteine and Metamizole may falsely depress this assay. Serum Triglycerides Reference Interval Normal <150 mg/dL Borderline high 150 - 199 mg/dL High 200 - 499 mg/dL Very High > or = 500 mg/dL Performed By: #### L 501.9910, L500.4100, L500.4050 ####[facility] [address] [place], [address] Low density lipoprotein (LDL ) cholesterol measurementOrdered By: Luis Enrique Napier on 06-26-2024 Cholesterol in LDL [Mass/Vol] 156 mg/dL High 0-130 [facility] PSA,Total - Annual Screenon 06-26-2024 PSA,TOT SCREEN 3.26 ng/mL Normal 0.00-4.00 [facility] Comment on above: Result Comment: This test was performed using the TPSA assay method for the [employer] chemistry system. Values obtained with different assay methods cannot be used interchangably. When changing PSA assays in the course of monitoring a patient, additional sequential testing should be carried out to confirm baseline values. Performed By: #### L 501.9910, L500.4100, L500.4050 ####[facility] [address] [place], [address] Potassium measurementOrdered By: Luis Enrique Napier on 06-26-2024 Potassium [Moles/Vol] 4.2 mmol/L 3.5-5.1 [facility] Screening prostate specific antigen (PSA) measurementOrdered By: Luis Enrique Napier on 06-26-2024 Prostate Specific Antigen Screen 3.26 ng/mL 0.00-4.00 [facility] Comment on above: This test was perfor med using the TPSA assay method for [employer] chemistry system. Values obtained with differentassay methods cannot be used interchangably.When changing PSA assays in the course of monitoring apatient, additional sequential testing should be carriedout to confirm baseline values. Serum anion gap measurementO rdered By: Luis Enrique Napier on 06-26-2024 Anion gap [Moles/Vol] 6 mmol/L 5-15 [facility] Serum globulin measurementOr dered By: Luis Enrique Napier on 06-26-2024 Globulin (S) [Mass/Vol] 3.8 g/dL 2.2-4.2 [facility] Serum or plasma alanine cr otransferase (ALT) measurementOrdered By: Luis Enrique Napier on 06-26-2024 ALT [Catalytic activity/Vol] 32 U/L 16-61 [facility] Serum or plasma albumin dangelo urement (mass/volume)Ordered By: Luis Enrique Napier on 06-26-2024 Albumin [Mass/Vol] 3.6 g/dL 3.2-5.0 [facility] Serum or plasma alkaline latoya sphatase measurementOrdered By: Luis Enrique Napier on 06-26-2024 ALP [Catalytic activity/Vol] 86 U/L 45-117 [facility] Serum or plasma calcium dangelo urement (mass/volume)Ordered By: Luis Enrique Napier on 06-26-2024 Calcium [Mass/Vol] 9.5 mg/dL 8.5-10.1 [facility] Serum or plasma cholesterol measurement (mass/volume)Ordered By: Luis Enrique Napier on 06-26-2024 Cholesterol [Mass/Vol] 236 mg/dL High <200 [facility] Comment on above: <200 mg/dL Desirable 200-240 mg/dL Borderline >240 mg/dL High Risk Serum or plasma creatinine m easurement (mass/volume)Ordered By: Luis Enrique Napier on 06-26-2024 Creatinine [Mass/Vol] 1.06 mg/dL 0.70-1.30 [facility] Comment on above: The validity of the calculated GFR & GFRAA in patients over 70 years has not been determined. Clinical correlation is essential. Serum or plasma urea nitroge n measurement (mass/volume)Ordered By: Luis Enrique Napier on 06-26-2024 Urea nitrogen [Mass/Vol] 11 mg/dL 7-18 [facility] Sodium levelOrdered By: Luis Enrique Napier on 06-26-2024 Sodium [Moles/Vol] 138 mmol/L 136-145 [facility] Total proteinOrdered By: Cecilia Napier on 06-26-2024 Protein [Mass/Vol] 7.4 g/dL 6.4-8.2 [facility] Triglycerides measurementOrd ered By: Luis Enrique Napier on 06-26-2024 Triglyceride [Mass/Vol] 163 mg/dL <199 [facility] Comment on above: The drugs N-Acetylcy steine and Metamizole may falsely depress this assay.Serum Triglycerides Reference Interval Normal <150 mg/dL Borderline high 150 - 199 mg/dL High 200 - 499 mg/dL Very High > or = 500 mg/dL Very low density lipoprotein (VLDL) cholesterol measurementOrdered By: Luis Enrique Napier on 06-26-2024 VLDL Cholesterol 33 mg/dL 5-40 [facility] Discharge Instructionon 05-08 Discharge Instruction [facility] Medical Records Department [address] [place] [address] Instructions for Home/Discharge Instructions 05/25/24 1631 MR#: [id number] Acct: [id number] Name: IRENE NIETO Rep #: [id number] : 1965 58 From: Carlos Kirby DPM PCP: Dr. Luis Enrique Napier MD Status:ADM IN Discharge Instructions Activity Discharge Activity: May Not Drive, Use Walker, Use Crutches and - (No weightbearing left foot - use knee walker, regular walker or crutches during ambulation to stay off left foot) Weight Bearing Status: No weight bearing (No weightbearing left foot) Keep extremity elevated above heart level: Operative Extremity (Keep left foot elevated with pillows at least 50 minutes of every hour, be sure to keep pressure off of heel) Dressing / Incision Call your doctor if your incision/area has: Continuous Slow Oozing, Sudden Increased Bleeding and Foul Smelling Discharge Call your doctor if you observe: Fever of 101 or Higher, Coldness, Increased Pain, Shortness of breath, Chest pain, Increased palpitations (irregular heartbeat), Calf discomfort and Uncontrolled pain Change Dressing in: do not change dressing Remove Dressing in: do not remove dressing Cleanse incision/area with: Keep Dressing Clean Dry Follow Up Care Please Follow Up With: Carlos Kirby DPM When: in office this week Test Results: Test results from this visit will be discussed in further detail at your follow-up appointment, if applicable. Discharge Plan Admission Admit Date/Time: 05/22/24 13:28 Attending Provider: Carlos Kirby Primary Care Provider: Luis Enrique Napier Consulting Providers: Clare Freitas Discharge Orders/Prescriptions Prescriptions: No Action cholecalciferol (vitamin D3) 250 mcg (10,000 unit) tablet 250 mcg PO DAILY Patient Comments: D3 with K2 magnesium 200 mg tablet 200 mg PO DAILY pregabalin [Lyrica] 75 mg capsule 75 mg PO 4X/DAY valsartan 80 mg tablet 40 mg PO QHS tizanidine [Zanaflex] 2 mg capsule 2 mg PO Q8H PRN (Reason: muscle spasticity) vitamin B complex Capsule 1 cap PO QDAY cyanocobalamin-liver extract Tablet 5,000 tab PO DAILY pitavastatin calcium 1 mg tablet 1 mg PO QHS ascorbic acid (vitamin C) [C-500] 500 mg tablet extended release 500 mg PO DAILY Referrals / Follow Up: Luis Enrique Napier MD [Primary Care Provider] - 05/25/24 1633 Carlos Kirby DPM CC: Dr. Clare Freitas MD; Dr. Luis Enrique Napier MD Signed ADDENDUM by DPEdgar Kirby on 05/25/24 at 1645 Continue with home medications: cholecalciferol (vitamin D3) 250 mcg (10,000 unit) tablet 250 mcg PO DAILY Patient Comments: D3 with K2 magnesium 200 mg tablet 200 mg PO DAILY pregabalin [Lyrica] 75 mg capsule 75 mg PO 4X/DAY valsartan 80 mg tablet 40 mg PO QHS tizanidine [Zanaflex] 2 mg capsule 2 mg PO Q8H PRN (Reason: muscle spasticity) vitamin B complex Capsule 1 cap PO QDAY cyanocobalamin-liver extract Tablet 5,000 tab PO DAILY pitavastatin calcium 1 mg tablet 1 mg PO QHS ascorbic acid (vitamin C) [C-500] 500 mg tablet extended release 500 mg PO DAILY New Prescriptions: Oxycodone/Acetaminophen (Percocet) 5/325mg tablet - take 1-2 tablets by mouth every 4 hours as needed for pain. Apixaban (Eliquis) 2.5mg tablet - take 1 tablet by mouth every 12 hours to help prevent a blood clot. 05/25/241644 Carlos Kirby DPM cc: Dr. Clare Freitas MD; Dr. Luis Enrique Napier MD * Signed Normal [facility] Basic Metabolic Profile (BMP )on 05-24-2024 BUN/CRE 17.3 RATIO Normal - [facility] Comment on above: Performed By: #### L 100.0100, L500.2500 ####[facility] [address] [place], [address] CA,Total 8.6 mg/dL Normal 8.5-10.1 [facility] Comment on above: Performed By: #### L 100.0100, L500.2500 ####[facility] [address] [place], [address] Chloride [Moles/Vol] 106 mmol/L Normal 98-107 [facility] Comment on above: Performed By: #### L 100.0100, L500.2500 ####[facility] [address] [place], [address] CO2 [Moles/Vol] 30.0 mmol/L Normal 21.0-32.0 [facility] Comment on above: Performed By: #### L 100.0100, L500.2500 ####[facility] [address] [place], [address] Creatinine [Mass/Vol] 0.98 mg/dL Normal 0.70-1.30 [facility] Comment on above: Result Comment: The validity of the calculated GFR GFRAA in patients over 70 years has not been determined. Clinical correlation is essential. Performed By: #### L 100.0100, L500.2500 ####[facility] [address] [place], [address] ECRCL 92.20 ml/min Normal [facility] Comment on above: Performed By: #### L 100.0100, L500.2500 ####[facility] [address] [place], [address] EST GFR - AA 100 mL/min Normal >60 [facility] Comment on above: Result Comment: Afri can Scottish GFR Calc Performed By: #### L 100.0100, L500.2500 ####[facility] [address] [place], [address] GAP 2 Low 5-15 [facility] Comment on above: Performed By: #### L 100.0100, L500.2500 ####[facility] [address] [place], [address] GFR/1.73 sq M.predicted among non-blacks MDRD (S/P/Bld) [Vol rate/Area] 82 mL/min/{1.73_m2} Normal >60 [facility] Comment on above: Result Comment: Non- GFR Calc Performed By: #### L 100.0100, L500.2500 ####[facility] [address] [place], [address] Glucose [Mass/Vol] 116 mg/dL High 74-106 [facility] Comment on above: Result Comment: Fast ing Glucose result from 100 to 125 mg/dL suggests IMPAIRED HOMEOSTASIS per A.D.A. criteria. Performed By: #### L 100.0100, L500.2500 ####[facility] [address] [place], [address] Potassium [Moles/Vol] 3.8 mmol/L Normal 3.5-5.1 [facility] Comment on above: Performed By: #### L 100.0100, L500.2500 ####[facility] [address] [place], [address] Sodium [Moles/Vol] 138 mmol/L Normal 136-145 [facility] Comment on above: Performed By: #### L 100.0100, L500.2500 ####[facility] [address] [place], [address] Urea nitrogen [Mass/Vol] 17 mg/dL Normal 7-18 [facility] Comment on above: Performed By: #### L 100.0100, L500.2500 ####[facility] [address] [place], [address] CBC W/Diff, Automatedon 11-1 7-2023 Absolute Lymph 1.80 X10 3/uL Normal 0.83-4.51 [facility] Comment on above: Performed By: #### L 100.0100, L500.2500 ####[facility] [address] [place], [address] Absolute Neut 5.5 X10 3/uL Normal 2.0-7.7 [facility] Comment on above: Performed By: #### L 100.0100, L500.2500 ####[facility] [address] [place], [address] Basophils/100 WBC (Bld) 0.5 % Normal 0-1 [facility] Comment on above: Performed By: #### L 100.0100, L500.2500 ####[facility] [address] [place], [address] Eosinophils/100 WBC (Bld) 1.6 % Normal 0-5 [facility] Comment on above: Performed By: #### L 100.0100, L500.2500 ####[facility] [address] [place], [address] Erythrocyte distribution width (RBC) [Ratio] 14.9 % High 11.6-14.6 [facility] Comment on above: Performed By: #### L 100.0100, L500.2500 ####[facility] [address] [place], [address] Hematocrit (Bld) [Volume fraction] 42.1 % Normal 40-54 [facility] Comment on above: Performed By: #### L 100.0100, L500.2500 ####[facility] [address] [place], [address] Hemoglobin (Bld) [Mass/Vol] 13.0 g/dL Normal 13.0-16.5 [facility] Comment on above: Performed By: #### L 100.0100, L500.2500 ####[facility] [address] [place], [address] IG% 0.700 Normal 0.0-0.9 [facility] Comment on above: Result Comment: IG% - Immature Granulocytes (promyelocytes, myelocytes and metamyelocytes) > 1% indicates that a LEFT SHIFT is Present. Performed By: #### L 100.0100, L500.2500 ####[facility] [address] [place], [address] Lymphocytes/100 WBC (Bld) 21.6 % Normal 19-41 [facility] Comment on above: Performed By: #### L 100.0100, L500.2500 ####[facility] [address] [place], [address] MCH (RBC) [Entitic mass] 26.7 pg Low 27.0-32.0 [facility] Comment on above: Performed By: #### L 100.0100, L500.2500 ####[facility] [address] [place], [address] MCHC (RBC) [Mass/Vol] 30.9 g/dL Low 32-36 [facility] Comment on above: Performed By: #### L 100.0100, L500.2500 ####[facility] [address] [place], [address] MCV (RBC) [Entitic vol] 86.4 fL Normal 80-94 [facility] Comment on above: Performed By: #### L 100.0100, L500.2500 ####[facility] [address] [place], [address] Monocytes/100 WBC (Bld) 9.7 % Normal 0-10 [facility] Comment on above: Performed By: #### L 100.0100, L500.2500 ####[facility] [address] [place], [address] Neutrophils/100 WBC (Bld) 65.9 % Normal 47-70 [facility] Comment on above: Performed By: #### L 100.0100, L500.2500 ####[facility] [address] [place], [address] Nucleated RBC (Bld) [#/Vol] 0 10*3/uL Normal 0-5 [facility] Comment on above: Performed By: #### L 100.0100, L500.2500 ####[facility] [address] [place], [address] Platelet mean volume (Bld) [Entitic vol] 9.1 fL Normal 6.2-12.0 [facility] Comment on above: Performed By: #### L 100.0100, L500.2500 ####[facility] [address], [address] Platelets (Bld) [#/Vol] 175 10*3/uL Normal 150-450 [facility] Comment on above: Performed By: #### L 100.0100, L500.2500 ####[facility] [address] [place], [address] RBC (Bld) [#/Vol] 4.87 10*6/uL Normal 4.6-6.2 [facility] Comment on above: Performed By: #### L 100.0100, L500.2500 ####[facility] [address] [place], [address] RDW SD 47.7 fl High 35.1-43.9 [facility] Comment on above: Performed By: #### L 100.0100, L500.2500 ####[facility] [address] [place], [address] WBC (Bld) [#/Vol] 8.3 10*3/uL Normal 4.4-11.0 [facility] Comment on above: Performed By: #### L 100.0100, L500.2500 ####[facility] [address] [place], [address] CBC W/Diff, Automatedon 05-08 Absolute Lymph 0.92 X10 3/uL Normal 0.83-4.51 [facility] Comment on above: Performed By: #### L 100.0100, L500.4050 #### [facility] [address] [place], [address] Absolute Neut 11.4 X10 3/uL High 2.0-7.7 [facility] Comment on above: Performed By: #### L 100.0100, L500.4050 #### [facility] [address] [place], [address] Basophils/100 WBC (Bld) 0.1 % Normal 0-1 [facility] Comment on above: Performed By: #### L 100.0100, L500.4050 #### [facility] [address] [place], [address] Eosinophils/100 WBC (Bld) 0.0 % Normal 0-5 [facility] Comment on above: Performed By: #### L 100.0100, L500.4050 #### [facility] [address] [place], [address] Erythrocyte distribution width (RBC) [Ratio] 14.4 % Normal 11.6-14.6 [facility] Comment on above: Performed By: #### L 100.0100, L500.4050 #### [facility] [address] [place], [address] Hematocrit (Bld) [Volume fraction] 43.2 % Normal 40-54 [facility] Comment on above: Performed By: #### L 100.0100, L500.4050 #### [facility] [address] [place], [address] Hemoglobin (Bld) [Mass/Vol] 13.8 g/dL Normal 13.0-16.5 [facility] Comment on above: Performed By: #### L 100.0100, L500.4050 #### [facility] [address] [place], [address] IG% 0.500 Normal 0.0-0.9 [facility] Comment on above: Result Comment: IG% - Immature Granulocytes (promyelocytes, myelocytes and metamyelocytes) > 1% indicates that a LEFT SHIFT is Present. Performed By: #### L 100.0100, L500.4050 #### [facility] [address] [place], [address] Lymphocytes/100 WBC (Bld) 6.9 % Low 19-41 [facility] Comment on above: Performed By: #### L 100.0100, L500.4050 #### [facility] [address] [place], [address] MCH (RBC) [Entitic mass] 27.0 pg Normal 27.0-32.0 [facility] Comment on above: Performed By: #### L 100.0100, L500.4050 #### [facility] [address] [place], [address] MCHC (RBC) [Mass/Vol] 31.9 g/dL Low 32-36 [facility] Comment on above: Performed By: #### L 100.0100, L500.4050 #### [facility] [address] [place], [address] MCV (RBC) [Entitic vol] 84.4 fL Normal 80-94 [facility] Comment on above: Performed By: #### L 100.0100, L500.4050 #### [facility] [address] [place], [address] Monocytes/100 WBC (Bld) 7.1 % Normal 0-10 [facility] Comment on above: Performed By: #### L 100.0100, L500.4050 #### [facility] [address] [place], [address] Neutrophils/100 WBC (Bld) 85.4 % High 47-70 [facility] Comment on above: Performed By: #### L 100.0100, L500.4050 #### [facility] [address] [place], [address] Nucleated RBC (Bld) [#/Vol] 0 10*3/uL Normal 0-5 [facility] Comment on above: Performed By: #### L 100.0100, L500.4050 #### [facility] [address] [place], [address] Platelet mean volume (Bld) [Entitic vol] 9.5 fL Normal 6.2-12.0 [facility] Comment on above: Performed By: #### L 100.0100, L500.4050 #### [facility] [address] [place], [address] Platelets (Bld) [#/Vol] 195 10*3/uL Normal 150-450 [facility] [facility] Comment on above: Performed By: #### L 100.0100, L500.4050 #### [facility] [address] [place], [address] RBC (Bld) [#/Vol] 5.12 10*6/uL Normal 4.6-6.2 [facility] Comment on above: Performed By: #### L 100.0100, L500.4050 #### [facility] [address] [place], [address] RDW SD 44.4 fl High 35.1-43.9 [facility] Comment on above: Performed By: #### L 100.0100, L500.4050 #### [facility] [address] [place], [address] WBC (Bld) [#/Vol] 13.4 10*3/uL High 4.4-11.0 [facility] Comment on above: Performed By: #### L 100.0100, L500.4050 #### [facility] [address] [place], [address] Comprehensive Metabolic Prof [facility] 05-23-2024 Albumin [Mass/Vol] 3.4 g/dL Normal 3.2-5.0 [facility] Comment on above: Performed By: #### L 100.0100, L500.4050 #### [facility] [address] [place], [address] Albumin/Globulin [Mass ratio] 1.1 {ratio} Normal 0.9-2.4 [facility] Comment on above: Performed By: #### L 100.0100, L500.4050 #### [facility] [address] [place] [place], [address] ALK P 71 U/L Normal 45-117 [facility] Comment on above: Performed By: #### L 100.0100, L500.4050 #### [facility] [address] [place], [address] ALT [Catalytic activity/Vol] 36 U/L Normal 16-61 [facility] Comment on above: Performed By: #### L 100.0100, L500.4050 #### [facility] [address] [place] [place], [address] AST [Catalytic activity/Vol] 30 U/L Normal 15-37 [facility] Comment on above: Performed By: #### L 100.0100, L500.4050 #### [facility] [address] [place], [address] Bilirubin [Mass/Vol] 0.40 mg/dL Normal 0.20-1.00 [facility] Comment on above: Result Comment: For patients on eltrombopag therapy, use of Dimension Sidney TBIL is not recommended. Performed By: #### L 100.0100, L500.4050 #### [facility] [address] [place] [place], [address] BUN/CRE 14.7 RATIO Normal 10-20 [facility] Comment on above: Performed By: #### L 100.0100, L500.4050 #### [facility] [address] [place], [address] CA,Total 8.9 mg/dL Normal 8.5-10.1 [facility] Comment on above: Performed By: #### L 100.0100, L500.4050 #### [facility] [address] [place], [address] Chloride [Moles/Vol] 107 mmol/L Normal 98-107 [facility] Comment on above: Performed By: #### L 100.0100, L500.4050 #### [facility] [address] [place], [address] CO2 [Moles/Vol] 27.0 mmol/L Normal 21.0-32.0 [facility] Comment on above: Performed By: #### L 100.0100, L500.4050 #### [facility] [address] [place], [address] Creatinine [Mass/Vol] 1.02 mg/dL Normal 0.70-1.30 [facility] Comment on above: Result Comment: The validity of the calculated GFR GFRAA in patients over 70 years has not been determined. Clinical correlation is essential. Performed By: #### L 100.0100, L500.4050 #### [facility] [address] [place], [address] ECRCL 88.58 ml/min Normal [facility] Comment on above: Performed By: #### L 100.0100, L500.4050 #### [facility] [address] [place], [address] EST GFR - AA 96 mL/min Normal >60 [facility] Comment on above: Result Comment: Afri can Scottish GFR Calc Performed By: #### L 100.0100, L500.4050 #### [facility] [address] [place], [address] GAP 4 Low 5-15 [facility] Comment on above: Performed By: #### L 100.0100, L500.4050 #### [facility] [address] [place], [address] GFR/1.73 sq M.predicted among non-blacks MDRD (S/P/Bld) [Vol rate/Area] 79 mL/min/{1.73_m2} Normal >60 [facility] Comment on above: Result Comment: Non- GFR Calc Performed By: #### L 100.0100, L500.4050 #### [facility] [address] [place], [address] Globulin (S) [Mass/Vol] 3.2 g/dL Normal 2.2-4.2 [facility] Comment on above: Performed By: #### L 100.0100, L500.4050 #### [facility] [address] [place], [address] Glucose [Mass/Vol] 135 mg/dL High 74-106 [facility] Comment on above: Result Comment: Fast ing Glucose result greater than or equal to 126 mg/dL suggests DIABETES MELLITUS per A.D.A. criteria. Performed By: #### L 100.0100, L500.4050 #### [facility] [address] [place], [address] Potassium [Moles/Vol] 4.5 mmol/L Normal 3.5-5.1 [facility] Comment on above: Performed By: #### L 100.0100, L500.4050 #### [facility] [address] [place], [address] Sodium [Moles/Vol] 138 mmol/L Normal 136-145 [facility] Comment on above: Performed By: #### L 100.0100, L500.4050 #### [facility] [address] [place], [address] T PROT 6.6 g/dL Normal 6.4-8.2 [facility] Comment on above: Performed By: #### L 100.0100, L500.4050 #### [facility] [address] [place], [address] Urea nitrogen [Mass/Vol] 15 mg/dL Normal 7-18 [facility] Comment on above: Performed By: #### L 100.0100, L500.4050 #### [facility] [address] [place], [address] Ankle min 3 Viewson 05-22-20 Ankle min 3 Views [facility] Imaging Services [address] [place] [address] Ankle min 3 Views MR#: [id number] Acct: [id number] Name: IRENE NIETO Fidel Rep #: [id number] : 1965 M 58 From: Sheila fisher MD PCP: Dr. Luis Enrique Napier MD Status: ADM IN Study: Ankle min 3 Views Date of Exam: 05/22/24 Exam# [id number] Ordering Dr: Carlos Kirby DPM [id number] HISTORY: post op. TECHNIQUE: XR Ankle Min 3 Views. COMPARISON: 05/09/2018. FINDINGS: BONES : No acute fracture identified. Placement of 2 screws for subtalar arthrodesis. Plantar calcaneal spur noted. JOINTS: No dislocation. SOFT TISSUES: Postoperative soft tissue swelling with mild air laterally. RAD/Ankle min 3 Views IMPRESSION: Satisfactory postoperative alignment of left ankle. Electronically Signed: Sheila Galarza MD at 14:40 EST Reading Location ID and State: [facility] / [place] Tel , Service support , CC: ZAN Kirby; Dr. Luis Enrique Napier MD Supervisor [employer]: Signed Normal [facility] Consultation - [facility] 05-22-2024 Consultation - Hospitalist [facility] Medical Records Department [address] [place] [address] Consultation - Hospitalist 05/22/24 1555 MR#: [id number] Acct: [id number] Name: IRENE NIETO Fidel Rep #: [id number] : 1965 58 From: Byron Smith DO PCP: Dr. Luis Enrique Napier MD Status:ADM IN Location: [facility] NF377-2 Assessment Plan Assessment/Plan (1) Arthritis of left subtalar joint: (2) HTN (hypertension): PLAN: Plan Patient is a 58-year-old male who presented [facility] on 05/22/2024 for planned podiatry procedure. Medicine consulted postoperatively for medical management. 1. Left subtalar joint osteoarthritis ??? Podiatry primary. S/p left subtalar joint arthrodesis with Dr. Kirby on 05/22. Patient tolerated procedure well, no intraoperative complications reported. Pain management and DVT prophylaxis per podiatry. Follow-up a.m. CBC and BMP. 2. Hypertension ??? On home valsartan 40 mg daily. Blood pressure elevated to the 160s to 170s postoperatively and patient appears fairly comfortable on exam. Will order IV hydralazine as needed for SBP greater than 170 and home valsartan restarted for tomorrow morning. 3. Neuropathy ??? Continue home Lyrica 75 mg in morning and afternoon and 150 mg at night. 4. Hyperlipidemia ??? Continue home statin. 5. Obesity ??? BMI 33 on admit. Complicates hospital course, care and prognosis. Total clinical time spent by myself addressing the patient's medical issues, reviewing all the data, and collaborating with patient's care team: 35 minutes. HPI Consult Data Date of Consult: 05/22/24 HPI Narrative Reason for Consultation: Postoperative medical management HPI Narrative: IRENE NIETO, is a 58 M who presented to [facility] on 05/22/2024 for planned left foot procedure with podiatry. Medicine consulted postoperatively for medical management. Patient had left subtalar joint arthrodesis done by Dr. Kirby today. Tolerated procedure well, no intraoperative complications noted. I saw the patient at bedside on the floor earlier this evening. Patient was sleeping when I arrived. Noted that he was still feeling a bit fatigued and groggy but was otherwise doing well. Reported his pain was a 2-3 out of 10 in the left foot and ankle. Left leg was stabilized from the base the toes up to the upper calf with a soft cast and Osmar wrap. He denied any fevers or chills. Denied any other acute concerns at this time. [facility] Medical History Wears glasses Anxiety High cholesterol Pain Back pain Non-smoker History of pain when walking History of edema History of echocardiogram History of stress test Cardiology follow-up encounter Impacted cerumen, right ear Influenza A Mixed hyperlipidemia Essential hypertension Home Medications ???Medication ???Instructions ???Recorded ???Last Taken ???Type cholecalciferol (vitamin D3) 250 250 mcg PO DAILY 08/03/21 05/21/24 History mcg (10,000 unit) tablet magnesium 200 mg tablet 200 mg PO DAILY 08/03/21 05/21/24 History pregabalin 75 mg capsule (Lyrica) 75 mg PO 4X/DAY 11/02/21 05/22/24 06:00 History tizanidine 2 mg capsule (Zanaflex) 2 mg PO Q8H PRN muscle spasticity 02/01/22 05/20/24 History valsartan 80 mg tablet 40 mg PO QHS 02/01/22 05/21/24 History vitamin B complex 1 cap PO QDAY 05/06/24 05/21/24 History ascorbic acid (vitamin C) 500 mg 500 mg PO DAILY 05/18/24 05/21/24 History tablet,extended release (C-500) cyanocobalamin-liver extract tablet 5,000 tab PO DAILY 05/18/24 05/21/24 History pitavastatin calcium 1 mg tablet 1 mg PO QHS 05/18/24 05/21/24 History Allergy/AdvReac Type Severity Reaction Status Date / Time pseudoephedrine Allergy Other Verified 05/22/24 15:12 losartan AdvReac Severe cough Verified 05/22/24 09:31 Gadolinium-MRI Contrast AdvReac Vomiting Verified 05/22/24 09:31 Medium (Gadolinium-Contrast Medium - MRI) Surgical History Hx of colonoscopy Hx of fasciotomy History of surgery on arm Hx of bursectomy Social History Smoking Status: Never smoker alcohol intake: never substance use type: does not use caffeine: Yes (occasional) Type: carbonated beverages ROS Constitutional Constitutional: Denies chills, fatigue, fever(s) or weakness Cardiovascular Cardiovascular: Denies chest pain Respiratory/Chest Respiratory/Chest: Denies shortness of breath at rest Gastrointestinal Gastrointestinal: Denies abdominal pain Physical Exam Const alert, oriented x3 and no apparent distress Constitutional Narrative: Pleasant middle-age male, obese, mildly fatigued appearing, otherwise sitting up comfortably in bed, conversing normally, in no acute dis (more content not included)... Normal [facility] Decalcification bone/plaqueo n 05-22-2024 Decalcification bone/plaque Patient Age/Sex Location Account Attending Physician IRENE NIETO 58/M MS3 [id number] Dr. Carlos Kirby DPM Specimen: [id number] Received: 05/22/24 Status: ASTER Moreno Num: [id number] Spec Type: FOOT Subm Dr: Dr. Carlos Kirby, ZAN HEADER OPERATION: Left subtalar joint fusion/arthrodesis PRE-OP DIAGNOSIS: Osteoarthritis left foot TISSUE SUBMITTED: Left foot subtalar joint MICROSCOPIC DIAGNOSIS Subtalar joint, resection: Fragments of bone with reactive and degenerative changes. 05/27/2024 MICROSCOPIC DESCRIPTION Slides are reviewed. GROSS DESCRIPTION Received in fixative is one container labeled with the patient's name and designated Left foot, subtalar joint. The specimen consists of multiple irregular fragments of caban-yellow soft tissue mixed with bone fragments that in aggregate measure 4.0 x 4.0 x 1.0 cm. The specimen is totally submitted in four cassettes after decalcification. 05/25/2024 TC:5 [facility]:[id number] Patient Age/Sex Location Account Attending Physician IRENE NIETO/M MS3 [id number] Dr. Carlos Kirby DPM Signed (signature on file) Dr. Bud Boss MD 05/27/24 1207 Normal [facility] Comment on above: Performed By: #### P DEC ####[facility] [address] [facility] [place], [place], [address] Foot 2 Viewson 05-22-2024 Foot 2 Views [facility] Imaging Services [address] [address] [facility] [address] [place], [place] [address] Foot 2 Views MR#: [id number] Acct: [id number] Name: IRENE NIETO Rep #: [id number] : 1965 M 58 From: Sheila fisher MD PCP: Dr. Luis Enrique Napier MD Status: ADM IN Study: Foot 2 Views Date of Exam: 05/22/24 Exam# [id number] Ordering Dr: Carlos Kirby DPEdgar [id number] HISTORY: LT SUBTALAR JOINT FUSION -- MINI. TECHNIQUE: 2 spot images. COMPARISON: XR 05/09/2018. FINDINGS: OSSEOUS STRUCTURES: Placement of 2 screws for subtalar arthrodesis. FLUOROSCOPY TIME: 332 seconds RADIATION DOSE: 3.23 mGy. RAD/Foot 2 Views IMPRESSION: Image guidance for left subtalar fusion. Electronically Signed: Sheila Galarza MD at 14:39 EST , CC: ZAN Kirby; Dr. Luis Enrique Napier MD Supervisor Dairy Sanitation: Signed Normal [facility] Foot min 3 Viewson Foot min 3 Views [facility] Imaging Services [address] [place] [address] Foot min 3 Views MR#: [id number] Acct: [id number] Name: IRENE NIETO Rep #: [id number] : 1965 M 58 From: Sheila fisher MD PCP: Dr. Luis Enrique Napier MD Status: ADM IN Study: Foot min 3 Views Date of Exam: 05/22/24 Exam# [id number] Ordering Dr: Carlos Kirby DPM [id number] HISTORY: post op. TECHNIQUE: XR Foot Min 3 Views. COMPARISON: 11/11/2014. FINDINGS: BONES : No acute fracture identified. Fragment at the head of the first proximal phalanx. Small plantar calcaneal spur 2 screws transfix the subtalar joint. JOINTS: No dislocation. Mild pes planus again seen. SOFT TISSUES: Postoperative edema with air laterally. RAD/Foot min 3 Views IMPRESSION: Satisfactory postoperative alignment of the left foot. Electronically Signed: Sheila Galarza MD at 14:42 EST Reading Location ID and State: [facility] / [place] Tel , Service support , CC: ZAN Kirby; Dr. Luis Enrique Napier MD Supervisor Dairy Sanitation: Signed Normal [facility] MR/POSTOP.ANEon 05-22-2024 MR/POSTOP.[facility] Medical Records Department [address] [place] [address] Anesthesia Postop Eval I 05/22/24 1335 MR#: [id number] Acct: [id number] Name: IRENE NIETO Rep #: [id number] : 1965 58 From: Brown Sanford MD PCP: Dr. Luis Enrique Napier MD Status:ADM IN Y Race: C Location: [address] Anesthesia: Postop Eval I Current Vital Signs Temperature: 97.2 F Pulse Rate: 72 Blood Pressure: 142/87 Respiratory Rate: 18 Pulse Ox: 95 Oxygen Delivery Method: Room Air Assessment Airway patent: Yes Spontaneous unlabored respirations: Yes Mental status: Awake and Calm nausea: No Vomiting: No Anesthesia Complication: No Fluid Hydration Crystalloid volume administer (ml): 1,000 Total IV fluid infused: 1,000 Progress Note Anesthesia document: Postop Eval 1 completed: Yes 05/25/24 1449 Date Brown Umana Signature: Date CC: Signed Normal [facility] MR/[id number] 05-22-2024 [facility] Medical Records Department [address] [place] [address] Anesthesia Postop Eval II 05/22/24 174 MR#: [id number] Acct: [id number] Name: IRENE NIETO Fidel Rep #: [id number] : 1965 58 From: Manjit Oh MD PCP: Dr. Luis Enrique Napier MD Status:ADM IN Y Race: C Location: [place] [address] Anesthesia Postop Eval I Sum Anesthesia Postop Eval I Summary Anesthesia Postop Eval I Summary: Anesthesia Postop Eval I: Assessment Summary Airway patent Spontaneous unlabored respirations Mental status nausea Vomiting Anesthesia Postop Eval I: Fluid Summary Crystalloid volume administer (ml) Colloids volume administered ( ml) Blood Product volume administered (ml) Total IV fluid infused Anesthesia Postop Eval I: Summary Notes Anesthesia Complication Anesthesia Complication Comment: Post-operative progress note Anesthesia: Postop Eval II Evaluation Mental status: Awake Pain Level: 0 nausea: No Vomiting: No 05/22/24 174 Date Manjit Umana Signature: Date CC: Signed Normal [facility] Operative Reporton 4 Operative Report [facility] Medical Records Department [address] [place] [address] Operative Report 05/22/24 1335 MR#: [id number] Acct: [id number] Name: IRENE NIETO Rep #: [id number] : 1965 58 From: Carlos Kirby DPM PCP: Dr. Luis Enrique Napier MD Status:ADM IN Location: [place] [address] Operative Report (Standard) Operative Information Surgery/Procedure Performed: Left subtalar joint arthrodesis and excision of os trigonum Surgeon: Carlos Kirby Date of Procedure: 05/22/24 Procedure Start Time: 11:20 Procedure Stop Time: 13:25 Pre-Operative Diagnosis: Osteoarthritis left subtalar joint, os trigonum, left Post-Operative Diagnosis: Same Select all DRAINS/GRAFTS/IMPLANTS that apply: None Type of Anesthesia: General and Local Estimated Blood Loss: 10mL Specimen collected: Yes Description of specimen(s) removed: Bone/cartilage from left subtalar joint and os trigonum Description of surgery: Indications: 58 year old gentleman with history of chronic left hindfoot pain at level of the subtalar joint despite nonsurgical care. MRI was obtained pre operatively and there were degenerative changes. Given continued limiting symptoms we discussed options and he elected to proceed with surgical intervention as noted above. This was discussed with him, reviewed possible benefits vs risks, goals, expectations and estimated healing time. The consent forms were reviewed with him and he freely signed them. No guarantees or warranties were given nor implied. Operative Procedure: The patient was brought back to the operating room. The patient was carefully placed on the operating room table in the spine position, and was carefully secured to the operating room table with a safety belt around her waist.The patient received general anesthesia per the anesthesia team. A well padded left thigh pneumatic tourniquet was applied. The patient also received 2g of Ancef for antibiotic prophylaxis. Left foot and ankle were scrubbed, prepped and draped in the usual aseptic fashion. Further attention was directed to her left foot and there was limited subtalar joint range of motion and a pes planus foot type. The left lower extremity was exsanguinated using an Esmarch bandage and the left thigh pneumatic tourniquet was inflated to 300mmHg. Using a 15 scalpel blade and longitudinal skin incision was made overlying the lateral subtalar joint from the distal tip of the fibular to the dorsal lateral midfoot. Careful dissection was completed down to the subtalar joint capsule and the capsule was incised and partially reflected to expose the joint. There was noted wearing of cartilage consistent with degenerative joint disease. The joint was distracted with a Hintermann distractor and the cartilage of the subtalar joint was completely resected using a curved osteotome and a sharp curette, the debrided cartilage was sent to pathology. The joint surfaces were drilled multiple times using a 2.5mm drill to prepped the joint surfaces for fusion. Augment was placed to the prepped joint surfaces. The joint surfaces were reapproximated into neutral position (removed hintermann) and the joint was fixated in this position using 2 x 6.5mm Marlene partially threaded cannulated screws going across the joint using rigid open reduction internal fixation technique. A small skin incision was made to the posterior heel using a 15 blade for screw placement. The fusion site was rigid and there was excellent compression and bone to bone contact. There was noted to be an os trigonum and there was noted to be inflammation to the site on the MRI so it was excised. In order to excise it a skin incision was made to the lateral posterior ankle using a 15 blade, careful dissection was completed down to the os trigonum and the os trigonum was excised using an osteotome and a bone cutting rongeur. The excised os trigonum was sent with the debrided cartilage from subtalar joint as specimen. The fusion site was again checked and noted to be rigid, stable, and appropriate at this time. The site was flushed out with copious amounts of normal saline solution, the subcutaneous tissue was reapproximated using3-0 Vicryl, the skin was reapproximated using 3-0 Nylon. A total of 30mL of 0.5% Bupivacaine plain was given as a local ankle nerve block. A dressing was applied which consisted of betadine soaked adaptic, 4x4 gauze, kerlix and osmar dressing, and a well padded below knee posterior splint with heel offloaded. The pneumatic tourniquet was deflated (total time was 120 minutes) prior to splint application, and there was immediate return of arterial flow to the foot with normal temperature an CFT < 2 seconds to all toes. Of note all vital structures, including tendons (peroneal tendons, and flexor hallucis longus tendon) and neurovascular structures to the area were identified and protected as necessary during (more content not included)... Normal [facility] Basic Metabolic Profile (BMP )on 05-11-2024 BUN/CRE 10.7 RATIO Normal 10-20 [facility] Comment on above: Performed By: #### L 100.0100, L500.4100, L500.2500 ####[facility] [address] [place], [address] CA,Total 9.6 mg/dL Normal 8.5-10.1 [facility] Comment on above: Performed By: #### L 100.0100, L500.4100, L500.2500 ####[facility] [address] [place], [address] Chloride [Moles/Vol] 103 mmol/L Normal 98-107 [facility] Comment on above: Performed By: #### L 100.0100, L500.4100, L500.2500 ####[facility] [address] [place], [address] CO2 [Moles/Vol] 25.0 mmol/L Normal 21.0-32.0 [facility] Comment on above: Performed By: #### L 100.0100, L500.4100, L500.2500 ####[facility] [address] [place], [address] Creatinine [Mass/Vol] 1.03 mg/dL Normal 0.70-1.30 [facility] Comment on above: Result Comment: The validity of the calculated GFR GFRAA in patients over 70 years has not been determined. Clinical correlation is essential. Performed By: #### L 100.0100, L500.4100, L500.2500 ####[facility] [address] [place], [address] EST GFR - AA 95 mL/min Normal >60 [facility] Comment on above: Result Comment: Afri can Scottish GFR Calc Performed By: #### L 100.0100, L500.4100, L500.2500 ####[facility] [address] [place], [address] GAP 8 Normal 5-15 [facility] Comment on above: Performed By: #### L 100.0100, L500.4100, L500.2500 ####[facility] [address] [place], [address] GFR/1.73 sq M.predicted among non-blacks MDRD (S/P/Bld) [Vol rate/Area] 78 mL/min/{1.73_m2} Normal >60 [facility] Comment on above: Result Comment: Non- GFR Calc Performed By: #### L 100.0100, L500.4100, L500.2500 ####[facility] [address] [place], [address] Glucose [Mass/Vol] 96 mg/dL Normal 74-106 [facility] Comment on above: Performed By: #### L 100.0100, L500.4100, L500.2500 ####[facility] [address] [place], [address] Potassium [Moles/Vol] 4.1 mmol/L Normal 3.5-5.1 [facility] Comment on above: Performed By: #### L 100.0100, L500.4100, L500.2500 ####[facility] [address] [place], [address] Sodium [Moles/Vol] 136 mmol/L Normal 136-145 [facility] Comment on above: Performed By: #### L 100.0100, L500.4100, L500.2500 ####[facility] [address] [place], [address] Urea nitrogen [Mass/Vol] 11 mg/dL Normal 7-18 [facility] Comment on above: Performed By: #### L 100.0100, L500.4100, L500.2500 ####[facility] [address] [place], [address] CBC W/Diff, Automatedon 11-0 -2023 Absolute Lymph 1.38 X10 3/uL Normal 0.83-4.51 [facility] Comment on above: Performed By: #### L 100.0100, L500.4100, L500.2500 ####[facility] [address] [place], [address] Absolute Neut 3.0 X10 3/uL Normal 2.0-7.7 [facility] Comment on above: Performed By: #### L 100.0100, L500.4100, L500.2500 ####[facility] [address] [place], [address] Basophils/100 WBC (Bld) 0.6 % Normal 0-1 [facility] Comment on above: Performed By: #### L 100.0100, L500.4100, L500.2500 ####[facility] [address] [place], [address] Eosinophils/100 WBC (Bld) 1.6 % Normal 0-5 [facility] Comment on above: Performed By: #### L 100.0100, L500.4100, L500.2500 ####[facility] [address] [place], [address] Erythrocyte distribution width (RBC) [Ratio] 14.0 % Normal 11.6-14.6 [facility] Comment on above: Performed By: #### L 100.0100, L500.4100, L500.2500 ####[facility] [address] [place], [address] Hematocrit (Bld) [Volume fraction] 48.0 % Normal 40-54 [facility] Comment on above: Performed By: #### L 100.0100, L500.4100, L500.2500 ####[facility] [address] [place], [address] Hemoglobin (Bld) [Mass/Vol] 15.3 g/dL Normal 13.0-16.5 [facility] Comment on above: Performed By: #### L 100.0100, L500.4100, L500.2500 ####[facility] [address] [place], [address] IG% 0.400 Normal 0.0-0.9 [facility] Comment on above: Result Comment: IG% - Immature Granulocytes (promyelocytes, myelocytes and metamyelocytes) > 1% indicates that a LEFT SHIFT is Present. Performed By: #### L 100.0100, L500.4100, L500.2500 ####[facility] [address] [place], [address] Lymphocytes/100 WBC (Bld) 27.5 % Normal 19-41 [facility] Comment on above: Performed By: #### L 100.0100, L500.4100, L500.2500 ####[facility] [address] [place], [address] MCH (RBC) [Entitic mass] 26.6 pg Low 27.0-32.0 [facility] Comment on above: Performed By: #### L 100.0100, L500.4100, L500.2500 ####[facility] [address] [place], [address] MCHC (RBC) [Mass/Vol] 31.9 g/dL Low 32-36 [facility] Comment on above: Performed By: #### L 100.0100, L500.4100, L500.2500 ####[facility] [address] [place], [address] MCV (RBC) [Entitic vol] 83.3 fL Normal 80-94 [facility] Comment on above: Performed By: #### L 100.0100, L500.4100, L500.2500 ####[facility] [address] [place], [address] Monocytes/100 WBC (Bld) 9.6 % Normal 0-10 [facility] Comment on above: Performed By: #### L 100.0100, L500.4100, L500.2500 ####[facility] [address] [place], [address] Neutrophils/100 WBC (Bld) 60.3 % Normal 47-70 [facility] Comment on above: Performed By: #### L 100.0100, L500.4100, L500.2500 ####[facility] [address] [place], [address] Nucleated RBC (Bld) [#/Vol] 0 10*3/uL Normal 0-5 [facility] Comment on above: Performed By: #### L 100.0100, L500.4100, L500.2500 ####[facility] [address] [place], [address] Platelet mean volume (Bld) [Entitic vol] 9.8 fL Normal 6.2-12.0 [facility] Comment on above: Performed By: #### L 100.0100, L500.4100, L500.2500 ####[facility] [address] [place], [address] Platelets (Bld) [#/Vol] 219 10*3/uL Normal 150-450 [facility] Comment on above: Performed By: #### L 100.0100, L500.4100, L500.2500 ####[facility] [address] [place], [address] RBC (Bld) [#/Vol] 5.76 10*6/uL Normal 4.6-6.2 [facility] Comment on above: Performed By: #### L 100.0100, L500.4100, L500.2500 ####[facility] [address] [place], [address] RDW SD 42.7 fl Normal 35.1-43.9 [facility] Comment on above: Performed By: #### L 100.0100, L500.4100, L500.2500 ####[facility] [address] [place], [address] WBC (Bld) [#/Vol] 5.0 10*3/uL Normal 4.4-11.0 [facility] Comment on above: Performed By: #### L 100.0100, L500.4100, L500.2500 ####[facility] [address] [place], [address] Lipid Profileon 05-11-2024 Cholesterol [Mass/Vol] 227 mg/dL High 200 [facility] Comment on above: Result Comment: <200 mg/dL Desirable 200-240 mg/dL Borderline >240 mg/dL High Risk Performed By: #### L 100.0100, L500.4100, L500.2500 ####[facility] [address] [place], [address] Cholesterol in HDL [Mass/Vol] 49 mg/dL Normal [facility] Comment on above: Result Comment: The drugs N-Acetylcysteine and Metamizole may falsely depress this assay. Reference Range HDL <40 mg/dL Low HDL Cholesterol HDL >or= 60 mg/dL High HDL Cholesterol Performed By: #### L 100.0100, L500.4100, L500.2500 ####[facility] [address] [place], [address] Cholesterol in LDL [Mass/Vol] 150 mg/dL High 0-130 [facility] Comment on above: Performed By: #### L 100.0100, L500.4100, L500.2500 ####[facility] [address] [place], [address] Cholesterol in VLDL [Mass/Vol] 28 mg/dL Normal 5-40 [facility] Comment on above: Performed By: #### L 100.0100, L500.4100, L500.2500 ####[facility] [address] [place], [address] Triglyceride [Mass/Vol] 141 mg/dL Normal [facility] Comment on above: Result Comment: The drugs N-Acetylcysteine and Metamizole may falsely depress this assay. Serum Triglycerides Reference Interval Normal <150 mg/dL Borderline high 150 - 199 mg/dL High 200 - 499 mg/dL Very High > or = 500 mg/dL Performed By: #### L 100.0100, L500.4100, L500.2500 ####[facility] [address] [place], [address] 12 Lead E[place] performed [place] [facility] [place] 05-06-2024 12 Lead EKG performed by [facility] [address] [place] [address] 12 Lead EKG performed by [facility] 05/06/24 0758 MR#: [id number] Acct: [id number] Name: IRENE NIETO Fidel Rep #: [id number] : 1965 58 From: Maliha Nieto ART GLASS DESIGNER ART GLASS DESIGNER-C Attending Dr: Maliha Nieto ART GLASS DESIGNER-C Status: DEP A MB Ordering Dr: Maliha Nieto ART GLASS DESIGNER ART GLASS DESIGNER-C Date: 05/06/24 [facility] [facility] Sex: M C Admitted: BMS/12 Lead EKG performed by [facility] ECG Report Interpretation --Sinus Rhythm -RSR(V1) -nondiagnostic. PROBABLY NORMALElectronically signed on 05/09/2024 at 13:52 by Milan [employer] Version [id number] 05/09/24 1357 Date Maliha GARCIA CC: Dr. Luis Enrique Napier MD Date Dictated: 05/06/24757 Date Transcribed: 05/06/24757 Supervisor [employer]: HAYDE Signed Normal [facility] Cardiology Visit Reporton Cardiology Visit Report [facility] [address] [place] [address]. [address] [place] [address] OFFICE VISIT Date of Service: 05/06/24 MR#: [id number] Acct: [id number] Name: IRENE NIETO Rep #: [id number] : 1965 Provider: JOSE Stewart rts Age/Sex: 58/M Location: [facility] Status: Signed HPI HPI History of Present Illness Details: This is a 58-year-old white male who presents today for outpatient cardiovascular follow-up visit. He was consulted based upon concerns of chest discomfort superimposed upon hyperlipidemia and hypertension. 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 He states he is disabled based upon left upper extremity musculoskeletal related issues. He underwent an echocardiogram and stress test in August of 2021. The results are noted below. From a cardiac standpoint, the patient is doing well. He denies any palpitations, chest pain, pressure or heaviness. He denies SOB, Orthopnea, and PND. He does not have bleeding issues; no blood in urine, stool or nosebleeds. He denies any decrease in energy level, myalgias, or claudication. He does not have edema, or sudden weight gain. He denies dizziness, lightheadedness, syncopal or near syncopal episodes, and headaches. 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 Is patient in pain?: No Allergies pseudoephedrine Allergy (Verified 05/06/24 13:52) Other losartan Adverse Reaction (Severe, Verified 05/06/24 13:52) cough Gadolinium-MRI Contrast Medium (Gadolinium-Contrast Medium - MRI) Adverse Reaction (Verified 05/06/24 13:52) Vomiting Medications ???Medication ???Instructions ???Recorded ???Confirmed ???Type cholecalciferol (vitamin D3) 250 250 mcg PO DAILY 08/03/21 05/06/24 History mcg (10,000 unit) tablet magnesium 200 mg tablet 200 mg PO DAILY 08/03/21 05/06/24 History pregabalin 75 mg capsule (Lyrica) 75 mg PO 4X/DAY 11/02/21 05/06/24 History tizanidine 2 mg capsule (Zanaflex) 2 mg PO Q8H PRN 02/01/22 05/06/24 History valsartan 80 mg tablet 40 mg PO DAILY 02/01/22 05/06/24 History vitamin B complex 1 cap PO QDAY 05/06/24 05/06/24 History PFSH Medical History Impacted cerumen, right ear Influenza A Mixed hyperlipidemia Essential hypertension Surgical History History of surgery on arm Hx of bursectomy Social History Smoking Status: Never smoker alcohol intake: never substance use type: does not use caffeine: Yes (occasional) Type: carbonated beverages ROS Const Const: Negative for fatigue, weakness, fever(s), headache(s), chills, frequent falls, weight gain or weight loss Eyes Eyes: Negative for blind spots, loss of peripheral vision, transient loss of vision, blurry vision, change in vision, double vision, floaters or tunnel vision ENT ENT: Negative for headache(s), dizziness, Nosebleed/epistaxis, balance problems or neck pain Cardio Chest Pain: No Palpitations: No Edema: None Muscle aches with walking: None Resp Respiratory: Negative for SOB with activity, SOB at rest or SOB orthopnea SOB lying down GI GI: Negative nausea, vomiting, heartburn, bloating, vomiting blood/hematemesis, bright, red blood in stools or black,tarry stools Musc Musc: Negative for muscle aches/ myalgia, muscle weakness, joint pain or balance problems Neuro Neuro: Negative for dizziness, lightheadedness, near syncope, syncope, orthostatic symptoms, frequent falls, headache(s), weakness, blurry vision or double vision Jimbo Hematologic/Lymphatic: Negative for easy bleeding or easy bruising Endo Endo: Negative for fatigue Cardiology Exam Const Appearance: cooperative and no acute distress Nutritional Appearance: obese Orientation: alert and oriented x3 Head Head: normal to inspection Ears: hearing grossly normal bilaterally Nose: external nose normal Face and Sinus: face symmetric Eyes General: appearance normal, both eyes and all related structures Eyelids: eyelids normal Conjunctivae: conjunctivae normal Pupils: PERRL EOM: EOM intact bilaterally Neck Neck: normal visual inspection Carotids: Negative bruit Chest Chest inspection: normal inspection of the chest and normal respiratory effort Auscultation: Bilateral: Clear to Auscultation Cardio Palpation: normal PMI Rate: regular rate Rhythm: regular rhythm Heart sounds: S1 normal and S2 normal; Negative rub (more content not included)... Normal [facility] Lower Ext Joint Only (Routin e)on 03-21-2024 Lower Ext Joint Only (Routine) [facility] Imaging Services [address] [place] [address] Lower Ext Joint Only (Routine) MR#: [id number] Acct: [id number] Name: IRENE NIETO Rep #: [id number] : 1965 M 58 From: Ricky manuel DO PCP: Dr. Luis Enrique Napier MD Status: REG CLI Study: Lower Ext Joint Only (Routine) Date of Exam: 0 03/21/24 Exam# [id number] Ordering Dr: Carlos Kirby Edgar [id number] EXAM: MR LEFT LOWER EXTREMITY WITHOUT INTRAVENOUS CONTRAST, ANKLE CLINICAL INDICATION: osteoarthritis left hindfoot, peroneal tendonitis, left TECHNIQUE: Multiplanar and multisequence MR images of the left ankle without intravenous contrast. COMPARISON: Left foot, 11/11/2014 and left ankle, 05-25. FINDINGS: LIGAMENTS: ANTERIOR TALOFIBULAR: No significant abnormality. Intact. POSTERIOR TALOFIBULAR: No significant abnormality. Intact. ANTERIOR TIBIOFIBULAR: No significant abnormality. Intact. POSTERIOR TIBIOFIBULAR: No significant abnormality. Intact. CALCANEOFIBULAR: No significant abnormality. Intact. DELTOID: No significant abnormality. Intact. SPRING: No significant abnormality. Intact. LISFRANC: No significant abnormality. Intact. TENDONS: ACHILLES: No significant abnormality. Intact. FLEXOR: No significant abnormality. Intact. EXTENSOR: No significant abnormality. Intact. PERONEAL: No significant abnormality. Intact. TIBIALIS ANTERIOR: No significant abnormality. Intact. TIBIALIS POSTERIOR: No significant abnormality. Intact. MUSCLES: No significant abnormality. Normal bulk and signal. FLUID: There is a small subtalar joint effusion. SINUS TARSI: The sinus tarsus appears normal. TARSAL TUNNEL: No significant abnormality. PLANTAR FASCIA: Mild thickening of the median band of the plantar fascia. No significant edema. CARTILAGE: No significant abnormality. No osteochondral lesion. Articular cartilage intact. BONES/JOINTS: There is an osteochondral defect of the posterior subtalar facet measuring up to 8 mm in diameter with subjacent marrow edema. Calcaneal spur. No osteochondral lesion of the talar dome. No acute fracture or dislocation. OTHER SOFT TISSUES: No significant abnormality. MRI/Lower Ext Joint Only (Routine) IMPRESSION: 1. There is an osteochondral defect of the posterior subtalar facet measuring up to 8 mm in diameter with subjacent marrow edema. 2. There is a small subtalar joint effusion. 3. The Achilles tendon appears normal. 4. The peroneal tendons are intact and normal in appearance. 5. Likely sequela of chronic plantar fasciitis. Associated calcaneal spur. Electronically Signed: Ricky Anne DO at 22:24 EDT , CC: ZAN Kirby; Dr. Luis Enrique Napier MD Supervisor D[employer]: Signed Normal [facility] Basophil percentageOrdered B y: Luis Enrique Napier on 11-11-2023 Bilirubin [Mass/Vol] 0.60 mg/dL 0.20-1.00 [facility] Comment on above: For patients on eltr ombopag therapy, use of Dimension [place] TBIL is not recommended. Chloride [Moles/Vol] 105 mmol/L 98-107 [facility] Cholesterol [Mass/Vol] 233 mg/dL <200 [facility] Comment on above: <200 mg/dL Desirable 200-240 mg/dL Borderline >240 mg/dL High Risk Glucose [Mass/Vol] 103 mg/dL 74-106 [facility] Comment on above: Fasting Glucose resu lt from 100 to 125 mg/dL suggests IMPAIRED HOMEOSTASIS per A.D.A. criteria. Potassium [Moles/Vol] 4.0 mmol/L 3.5-5.1 [facility] Protein [Mass/Vol] 7.2 g/dL 6.4-8.2 [facility] Sodium [Moles/Vol] 137 mmol/L 136-145 [facility] Triglyceride [Mass/Vol] 110 mg/dL <199 [facility] Comment on above: The drugs N-Acetylcy steine and Metamizole may falsely depress this assay.Serum Triglycerides Reference Interval Normal <150 mg/dL Borderline high 150 - 199 mg/dL High 200 - 499 mg/dL Very High > or = 500 mg/dL Laboratory - Chemistry and C hemistry - challengeOrdered By: Luis Enrique Napier on 11-11-2023 Albumin/Globulin [Mass ratio] 1.1 {ratio} 0.9-2.4 [facility] ALP [Catalytic activity/Vol] 76 U/L 45-117 [facility] ALT [Catalytic activity/Vol] 36 U/L 16-61 [facility] Cholesterol in HDL [Mass/Vol] 48 mg/dL >40 [facility] Comment on above: The drugs N-Acetylcy steine and Metamizole may falsely depress this assay. Reference Range HDL <40 mg/dL Low HDL Cholesterol HDL >or= 60 mg/dL High HDL Cholesterol Cholesterol in LDL [Mass/Vol] 163 mg/dL 0-130 [facility] CO2 [Moles/Vol] 27.0 mmol/L 21.0-32.0 [facility] Globulin (S) [Mass/Vol] 3.4 g/dL 2.2-4.2 [facility] Urea nitrogen/Creatinine [Mass ratio] 13.3 mg/mg 10-20 [facility] No Panel InformationOrdered By: Luis Enrique Napier on 11-11-2023 Estimated GFR (MDRD) Amer 111 mL/min >60 [facility] Comment on above: GFR Calc Estimated GFR (MDRD) Non-Af Amer 91 mL/min >60 [facility] Comment on above: Non- GFR Calc VLDL Cholesterol 22 mg/dL 5-40 [facility] Serum or plasma calcium dangelo urement (mass/volume)Ordered By: Luis Enrique Napier on 11-11-2023 Calcium [Mass/Vol] 9.3 mg/dL 8.5-10.1 [facility] Serum or plasma creatinine m easurement (mass/volume)Ordered By: Luis Enrique Napier on 11-11-2023 Creatinine [Mass/Vol] 0.90 mg/dL 0.70-1.30 [facility] Comment on above: The validity of the calculated GFR & GFRAA in patients over 70 years has not been determined. Clinical correlation is essential. Serum or plasma urea nitroge n measurement (mass/volume)Ordered By: Luis Enrique Napier on 11-11-2023 Urea nitrogen [Mass/Vol] 12 mg/dL 7-18 [facility] Thin prep Papanicolaou smear with manual screeningOrdered By: Luis Enrique Napier on 11-11-2023 Thin prep Papanicolaou smear with manual screening 3.8 g/dL 3.2-5.0 [facility] Thin prep Papanicolaou smear with manual screening 25 U/L 15-37 [facility] Thin prep Papanicolaou smear with manual screening 5 5-15 [facility] Basophil percentageOrdered B y: Luis Enrique Napier on 07-10-2023 Chloride [Moles/Vol] 105 mmol/L 98-107 [facility] Cholesterol [Mass/Vol] 263 mg/dL <200 [facility] Comment on above: <200 mg/dL Desirable 200-240 mg/dL Borderline >240 mg/dL High Risk Glucose [Mass/Vol] 89 mg/dL 74-106 [facility] Potassium [Moles/Vol] 4.3 mmol/L 3.5-5.1 [facility] Sodium [Moles/Vol] 137 mmol/L 136-145 [facility] Triglyceride [Mass/Vol] 172 mg/dL <199 [facility] Comment on above: The drugs N-Acetylcy steine and Metamizole may falsely depress this assay.Serum Triglycerides Reference Interval Normal <150 mg/dL Borderline high 150 - 199 mg/dL High 200 - 499 mg/dL Very High > or = 500 mg/dL Laboratory - Chemistry and C hemistry - challengeOrdered By: Luis Enrique Napier on 07-10-2023 CO2 [Moles/Vol] 26.0 mmol/L 21.0-32.0 [facility] Urea nitrogen/Creatinine [Mass ratio] 12.7 mg/mg 10-20 [facility] No Panel InformationOrdered By: Luis Enrique Napier on 07-10-2023 Estimated GFR (MDRD) Amer 96 mL/min >60 [facility] Comment on above: GFR Calc Estimated GFR (MDRD) Non-Af Amer 79 mL/min >60 [facility] Comment on above: Non- GFR Calc Prostate Specific Antigen Screen 3.26 ng/mL 0.00-4.00 [facility] Comment on above: This test was perfor med using the TPSA assay method [facility]. Values obtained with differentassay methods cannot be used interchangably.When changing PSA assays in the course of monitoring apatient, additional sequential testing should be carriedout to confirm baseline values. Serum or plasma calcium dangelo urement (mass/volume)Ordered By: Luis Enrique Napier on 07-10-2023 Calcium [Mass/Vol] 9.7 mg/dL 8.5-10.1 [facility] Serum or plasma cholesterol in HDL measurement (mass/volume)Ordered By: Luis Enrique Napier on 07-10-2023 Cholesterol in HDL [Mass/Vol] 45 mg/dL >40 [facility] Comment on above: The drugs N-Acetylcy steine and Metamizole may falsely depress this assay. Reference Range HDL <40 mg/dL Low HDL Cholesterol HDL >or= 60 mg/dL High HDL Cholesterol Serum or plasma cholesterol in VLDL measurement (mass/volume)Ordered By: Luis Enrique Napier on 07-10-2023 Cholesterol in VLDL [Mass/Vol] 34 mg/dL 5-40 [facility] Serum or plasma creatinine m easurement (mass/volume)Ordered By: Luis Enrique Napier on 07-10-2023 Creatinine [Mass/Vol] 1.02 mg/dL 0.70-1.30 [facility] Comment on above: The validity of the calculated GFR & GFRAA in patients over 70 years has not been determined. Clinical correlation is essential. Serum or plasma low density lipoprotein (LDL) cholesterol measurement (mass/volume)Ordered By: Luis Enrique Napier on 07-10-2023 Cholesterol in LDL [Mass/Vol] 184 mg/dL 0-130 [facility] Serum or plasma urea nitroge n measurement (mass/volume)Ordered By: Luis Enrique Napier on 07-10-2023 Urea nitrogen [Mass/Vol] 13 mg/dL 7-18 [facility] Thin prep Papanicolaou smear with manual screeningOrdered By: Luis Enrique Napier on 07-10-2023 Thin prep Papanicolaou smear with manual screening 6 5-15 [facility] Basophil percentageOrdered B y: Luis Enrique Napier on 01-23-2023 Chloride [Moles/Vol] 105 mmol/L 98-107 [facility] Cholesterol [Mass/Vol] 246 mg/dL <200 [facility] Comment on above: <200 mg/dL Desirable 200-240 mg/dL Borderline >240 mg/dL High Risk Glucose [Mass/Vol] 86 mg/dL 74-106 [facility] Potassium [Moles/Vol] 4.0 mmol/L 3.5-5.1 [facility] Sodium [Moles/Vol] 137 mmol/L 136-145 [facility] Triglyceride [Mass/Vol] 197 mg/dL <199 [facility] Comment on above: The drugs N-Acetylcy steine and Metamizole may falsely depress this assay.Serum Triglycerides Reference Interval Normal <150 mg/dL Borderline high 150 - 199 mg/dL High 200 - 499 mg/dL Very High > or = 500 mg/dL Laboratory - Chemistry and C hemistry - challengeOrdered By: Luis Enrique Napier on 01-23-2023 CO2 [Moles/Vol] 26.0 mmol/L 21.0-32.0 [facility] Urea nitrogen/Creatinine [Mass ratio] 10.8 mg/mg 10-20 [facility] No Panel InformationOrdered By: Luis Enrique Napier on 01-23-2023 Estimated GFR (MDRD) Amer 121 mL/min >60 [facility] Comment on above: GFR Calc Estimated GFR (MDRD) Non-Af Amer 100 mL/min >60 [facility] Comment on above: Non- GFR Calc Serum or plasma calcium dangelo urement (mass/volume)Ordered By: Luis Enrique Napier on 01-23-2023 Calcium [Mass/Vol] 9.1 mg/dL 8.5-10.1 [facility] Serum or plasma cholesterol in HDL measurement (mass/volume)Ordered By: Luis Enrique Napier on 01-23-2023 Cholesterol in HDL [Mass/Vol] 41 mg/dL >40 [facility] Comment on above: The drugs N-Acetylcy steine and Metamizole may falsely depress this assay. Reference Range HDL <40 mg/dL Low HDL Cholesterol HDL >or= 60 mg/dL High HDL Cholesterol Serum or plasma cholesterol in VLDL measurement (mass/volume)Ordered By: Luis Enrique Napier on 01-23-2023 Cholesterol in VLDL [Mass/Vol] 39 mg/dL 5-40 [facility] Serum or plasma creatinine m easurement (mass/volume)Ordered By: Luis Enrique Napier on 01-23-2023 Creatinine [Mass/Vol] 0.83 mg/dL 0.70-1.30 [facility] Comment on above: The validity of the calculated GFR & GFRAA in patients over 70 years has not been determined. Clinical correlation is essential. Serum or plasma low density lipoprotein (LDL) cholesterol measurement (mass/volume)Ordered By: Luis Enrique Napier on 01-23-2023 Cholesterol in LDL [Mass/Vol] 166 mg/dL 0-130 [facility] Serum or plasma urea nitroge n measurement (mass/volume)Ordered By: Luis Enrique Napier on 01-23-2023 Urea nitrogen [Mass/Vol] 9 mg/dL 7-18 [facility] Thin prep Papanicolaou smear with manual screeningOrdered By: Luis Enrique Napier on 01-23-2023 Thin prep Papanicolaou smear with manual screening 6 5-15 [facility] Absolute lymphocyte countOrd ered By: Dr. Cornejo on 07-14-2022 Lymphocytes Auto (Unsp spec) [#/Vol] 0.97 10*3/uL 0.83-4.51 [facility] Basophil percentageOrdered B y: Dr. Cornejo on 07-14-2022 Basophil percentage 0 SEEN /hpf 0-5 [facility] Basophils/100 WBC (Bld) 0.3 % 0-1 [facility] Bilirubin [Mass/Vol] 0.40 mg/dL 0.20-1.00 [facility] Comment on above: For patients on eltr ombopag therapy, use of Dimension [place] TBIL is not recommended. Chloride [Moles/Vol] 106 mmol/L 98-107 [facility] Eosinophils/100 WBC (Bld) 1.0 % 0-5 [facility] Glucose [Mass/Vol] 115 mg/dL 74-106 [facility] Comment on above: Fasting Glucose resu lt from 100 to 125 mg/dL suggests IMPAIRED HOMEOSTASIS per A.D.A. criteria. Neutrophils (Bld) [#/Vol] 1.6 10*3/uL 2.0-7.7 [facility] Neutrophils/100 WBC (Bld) 53.8 % 47-70 [facility] Potassium [Moles/Vol] 4.4 mmol/L 3.5-5.1 [facility] Protein [Mass/Vol] 6.5 g/dL 6.4-8.2 [facility] Sodium [Moles/Vol] 140 mmol/L 136-145 [facility] WBC (Bld) [#/Vol] 3.0 10*3/uL 4.4-11.0 [facility] Bilirubin Test strip Ql (U)O rdered By: Dr. Cornejo on 07-14-2022 Bilirubin Ql (U) Negative Negative [facility] Blood erythrocytes count (nu mber/volume)Ordered By: Dr. Cornejo on 07-14-2022 RBC (Bld) [#/Vol] 5.77 10*6/uL 4.6-6.2 [facility] Blood hemoglobin measurement (mass/volume)Ordered By: Dr. Cornejo on 07-14-2022 Hemoglobin (Bld) [Mass/Vol] 15.8 g/dL 13.0-16.5 [facility] Blood lymphocytes/100 leukoc ytesOrdered By: Dr. Cornejo on 07-14-2022 Lymphocytes/100 WBC (Bld) 32.8 % 19-41 [facility] Blood monocytes/100 leukocyt esOrdered By: Dr. Cornejo on 07-14-2022 Monocytes/100 WBC (Bld) 11.8 % 0-10 [facility] Blood platelet mean volumeOr dered By: Dr. Cornejo on 07-14-2022 Platelet mean volume (Bld) [Entitic vol] 9.5 fL 6.2-12.0 [facility] Determination of erythrocyte mean corpuscular volume (MCV)Ordered By: Dr. Cornejo on 07-14-2022 MCV (RBC) [Entitic vol] 83.0 fL 80-94 [facility] Hematocrit Auto (Bld) [Volum e fraction]Ordered By: Dr. Cornejo on 07-14-2022 Hematocrit (Bld) [Volume fraction] 47.9 % 40-54 [facility] Ketones Test strip Ql (U)Ord ered By: Dr. Cornejo on 07-14-2022 Ketones Ql (U) Negative Negative [facility] Laboratory - Chemistry and C hemistry - challengeOrdered By: Dr. Cornejo on 07-14-2022 ALP [Catalytic activity/Vol] 68 U/L 45-117 [facility] ALT [Catalytic activity/Vol] 39 U/L 16-61 [facility] CO2 [Moles/Vol] 31.0 mmol/L 21.0-32.0 [facility] Globulin (S) [Mass/Vol] 3.2 g/dL 2.2-4.2 [facility] Urea nitrogen/Creatinine [Mass ratio] 16.1 mg/mg 10-20 [facility] Laboratory - Hematology and Cell countsOrdered By: Dr. Cornejo on 07-14-2022 Erythrocyte distribution width (RBC) [Entitic vol] 43.2 fL 35.1-43.9 [facility] Erythrocyte distribution width (RBC) [Ratio] 14.3 % 11.6-14.6 [facility] Immature granulocytes/100 WBC (Bld) 0.300 % 0.0-0.9 [facility] Comment on above: IG% - Immature Granu locytes (promyelocytes, myelocytes and metamyelocytes) > 1% indicates that a LEFT SHIFT is Present. MCH (RBC) [Entitic mass] 27.4 pg 27.0-32.0 [facility] Nucleated RBC/100 WBC (Bld) [Ratio] 0 % 0-5 [facility] MCHC Auto (RBC) [Mass/Vol]Or dered By: Dr. Cornejo on 07-14-2022 MCHC (RBC) [Mass/Vol] 33.0 g/dL 32-36 [facility] Mucus LM Ql (Urine sed)Order ed By: Dr. Cornejo on 07-14-2022 Mucus Ql (Urine sed) 0 SEEN /hpf [facility] Nitrite Test strip Ql (U)Ord ered By: Dr. Cornejo on 07-14-2022 Nitrite Ql (U) Negative Negative [facility] No Panel InformationOrdered By: Dr. Corneoj on 07-14-2022 Estimated Creatinine Clearance Calc 77.50 ml/min [facility] Estimated GFR (MDRD) Amer 116 mL/min >60 [facility] Comment on above: GFR Calc Estimated GFR (MDRD) Non-Af Amer 96 mL/min >60 [facility] Comment on above: Non- GFR Calc Platelets bldOrdered By: Dr. Cornejo on 07-14-2022 Platelets (Bld) [#/Vol] 141 10*3/uL 150-450 [facility] Protein Test strip Ql (U)Ord ered By: Dr. Cornejo on 07-14-2022 Protein Ql (U) Negative Negative [facility] Serum or plasma albumin dangelo urement (mass/volume)Ordered By: Dr. Cornejo on 07-14-2022 Albumin [Mass/Vol] 3.3 g/dL 3.2-5.0 [facility] Serum or plasma albumin/glob ulin mass ratioOrdered By: Dr. Cornejo on 07-14-2022 Albumin/Globulin [Mass ratio] 1.0 {ratio} 0.9-2.4 [facility] Serum or plasma calcium dangelo urement (mass/volume)Ordered By: Dr. Cornejo on 07-14-2022 Calcium [Mass/Vol] 9.0 mg/dL 8.5-10.1 [facility] Serum or plasma creatinine m easurement (mass/volume)Ordered By: Dr. Cornejo on 07-14-2022 Creatinine [Mass/Vol] 0.87 mg/dL 0.70-1.30 [facility] Comment on above: The validity of the calculated GFR & GFRAA in patients over 70 years has not been determined. Clinical correlation is essential. Serum or plasma urea nitroge n measurement (mass/volume)Ordered By: Dr. Cornejo on 07-14-2022 Urea nitrogen [Mass/Vol] 14 mg/dL 7-18 [facility] Squamous epithelial cells de tection in urine sediment by light microscopyOrdered By: Dr. Cornejo on 07-14-2022 Epithelial cells.squamous LM Ql (Urine sed) 0 SEEN /hpf 0-5 [facility] Thin prep Papanicolaou smear with manual screeningOrdered By: Dr. Cornejo on 07-14-2022 Thin prep Papanicolaou smear with manual screening 26 U/L 15-37 [facility] Thin prep Papanicolaou smear with manual screening 3 5-15 [facility] Urine blood detectionOrdered By: Dr. Cornejo on 07-14-2022 RBC Ql (U) Negative Negative [facility] RBC Ql (U) 0 SEEN /hpf 0-5 [facility] Urine clarityOrdered By: Dr. Cornejo on 07-14-2022 Clarity (U) Clear Clear [facility] Urine color determinationOrd ered By: Dr. Cornejo on 07-14-2022 Color (U) Yellow Yellow [facility] Urine glucose detectionOrder ed By: Dr. Cornejo on 07-14-2022 Glucose Ql (U) Normal mg/dl Normal [facility] Urine leukocyte esterase det ection by dipstickOrdered By: Dr. Cornejo on 07-14-2022 Leukocyte esterase Test strip Ql (U) Negative Negative [facility] Urine pHOrdered By: Dr. Primo butcher on 07-14-2022 pH (U) 8.0 [pH] 5.0 - 8.0 [facility] Urine sediment bacteria coun t by microscopy (number/high power field)Ordered By: Dr. Cornejo on 07-14-2022 Bacteria LM.HPF (Urine sed) [#/Area] 0 /[HPF] None Seen [facility] Urine specific gravity measu rementOrdered By: Dr. Cornejo on 07-14-2022 Specific gravity (U) [Rel density] 1.010 1.002-1.030 [facility] Urobilinogen Auto test strip Ql (U)Ordered By: Dr. Cornejo on 07-14-2022 Urobilinogen Ql (U) Normal mg/dl Normal [facility] Laboratory - Microbiology an d Antimicrobial susceptibilityon 07-12-2022 SARS-CoV-2 (COVID-19) RNA NABIL+probe Ql (Unsp spec) Not detected [facility] No Panel Informationon 07-12 POC Nasal Swab Influenza A,B Detected [facility] POC Nasal Swab RSV Not detected [facility] Basophil percentageOrdered B y: Dr. Napier on 04-26-2022 Bilirubin [Mass/Vol] 0.60 mg/dL 0.20-1.00 [facility] Comment on above: For patients on eltr ombopag therapy, use of Dimension [place] TBIL is not recommended. Chloride [Moles/Vol] 104 mmol/L 98-107 [facility] Cholesterol [Mass/Vol] 284 mg/dL <200 [facility] Comment on above: <200 mg/dL Desirable 200-240 mg/dL Borderline >240 mg/dL High Risk Glucose [Mass/Vol] 103 mg/dL 74-106 [facility] Comment on above: Fasting Glucose resu lt from 100 to 125 mg/dL suggests IMPAIRED HOMEOSTASIS per A.D.A. criteria. Potassium [Moles/Vol] 4.4 mmol/L 3.5-5.1 [facility] Protein [Mass/Vol] 8.0 g/dL 6.4-8.2 [facility] Sodium [Moles/Vol] 137 mmol/L 136-145 [facility] Triglyceride [Mass/Vol] 111 mg/dL <199 [facility] Comment on above: The drugs N-Acetylcy steine and Metamizole may falsely depress this assay.Serum Triglycerides Reference Interval Normal <150 mg/dL Borderline high 150 - 199 mg/dL High 200 - 499 mg/dL Very High > or = 500 mg/dL Laboratory - Chemistry and C hemistry - challengeOrdered By: Dr. Napier on 04-26-2022 ALP [Catalytic activity/Vol] 111 U/L 45-117 [facility] ALT [Catalytic activity/Vol] 38 U/L 16-61 [facility] CO2 [Moles/Vol] 26.0 mmol/L 21.0-32.0 [facility] Globulin (S) [Mass/Vol] 3.8 g/dL 2.2-4.2 [facility] Urea nitrogen/Creatinine [Mass ratio] 21.0 mg/mg 04-26 [facility] No Panel InformationOrdered By: Dr. Napier on 04-26-2022 Estimated GFR (MDRD) Amer 99 mL/min >60 [facility] Comment on above: GFR Calc Estimated GFR (MDRD) Non-Af Amer 82 mL/min >60 [facility] Comment on above: Non- GFR Calc Serum or plasma albumin dangelo urement (mass/volume)Ordered By: Dr. Napier on 04-26-2022 Albumin [Mass/Vol] 4.2 g/dL 3.2-5.0 [facility] Serum or plasma albumin/glob ulin mass ratioOrdered By: Dr. Napier on 04-26-2022 Albumin/Globulin [Mass ratio] 1.1 {ratio} 0.9-2.4 [facility] Serum or plasma calcium dangelo urement (mass/volume)Ordered By: Dr. Napier on 04-26-2022 Calcium [Mass/Vol] 9.7 mg/dL 8.5-10.1 [facility] Serum or plasma cholesterol in HDL measurement (mass/volume)Ordered By: Dr. Napier on 04-26-2022 Cholesterol in HDL [Mass/Vol] 51 mg/dL >40 [facility] Comment on above: The drugs N-Acetylcy steine and Metamizole may falsely depress this assay. Reference Range HDL <40 mg/dL Low HDL Cholesterol HDL >or= 60 mg/dL High HDL Cholesterol Serum or plasma cholesterol in VLDL measurement (mass/volume)Ordered By: Dr. Napier on 04-26-2022 Cholesterol in VLDL [Mass/Vol] 22 mg/dL 5-40 [facility] Serum or plasma creatinine m easurement (mass/volume)Ordered By: Dr. Napier on 04-26-2022 Creatinine [Mass/Vol] 1.00 mg/dL 0.70-1.30 [facility] Comment on above: The validity of the calculated GFR & GFRAA in patients over 70 years has not been determined. Clinical correlation is essential. Serum or plasma low density lipoprotein (LDL) cholesterol measurement (mass/volume)Ordered By: Dr. Napier on 04-26-2022 Cholesterol in LDL [Mass/Vol] 211 mg/dL 0-130 [facility] Serum or plasma urea nitroge n measurement (mass/volume)Ordered By: Dr. Napier on 04-26-2022 Urea nitrogen [Mass/Vol] 21 mg/dL 7-18 [facility] Thin prep Papanicolaou smear with manual screeningOrdered By: Dr. Napier on 04-26-2022 Thin prep Papanicolaou smear with manual screening 27 U/L 15-37 [facility] Thin prep Papanicolaou smear with manual screening 7 5-15 [facility] Absolute lymphocyte counton 11-02-2021 Lymphocytes Auto (Unsp spec) [#/Vol] 1.28 10*3/uL 0.83-4.51 [facility] Work Phone: Basophil percentageon 2021 Basophils/100 WBC (Bld) 0.8 % 0-1 [facility] Work Phone: Eosinophils/100 WBC (Bld) 1.0 % 0-5 [facility] Work Phone: Neutrophils (Bld) [#/Vol] 3.0 10*3/uL 2.0-7.7 [facility] Work Phone: Neutrophils/100 WBC (Bld) 62.3 % 47-70 [facility] Work Phone: WBC (Bld) [#/Vol] 4.9 10*3/uL 4.4-11.0 [facility] Work Phone: Blood erythrocytes count (nu mber/volume)on 11-02-2021 RBC (Bld) [#/Vol] 5.55 10*6/uL 4.6-6.2 [facility] Work Phone: Blood hemoglobin measurement (mass/volume)on 11-02-2021 Hemoglobin (Bld) [Mass/Vol] 15.0 g/dL 13.0-16.5 [facility] Work Phone: Blood lymphocytes/100 leukoc yteson 11-02-2021 Lymphocytes/100 WBC (Bld) 26.3 % 19-41 [facility] Work Phone: Blood monocytes/100 leukocyt eson 11-02-2021 Monocytes/100 WBC (Bld) 9.4 % 0-10 [facility] Work Phone: Blood platelet mean volumeon 11-02-2021 Platelet mean volume (Bld) [Entitic vol] 10.1 fL 6.2-12.0 [facility] Work Phone: Determination of erythrocyte mean corpuscular volume (MCV)on 11-02-2021 MCV (RBC) [Entitic vol] 84.3 fL 80-94 [facility] Work Phone: Hematocrit Auto (Bld) [Volum e fraction]on 11-02-2021 Hematocrit (Bld) [Volume fraction] 46.8 % 40-54 [facility] Work Phone: Laboratory - Hematology and Cell countson 11-02-2021 Erythrocyte distribution width (RBC) [Entitic vol] 44.6 fL 35.1-43.9 [facility] Work Phone: Erythrocyte distribution width (RBC) [Ratio] 14.5 % 11.6-14.6 [facility] Work Phone: Immature granulocytes/100 WBC (Bld) 0.200 % 0.0-0.9 [facility] Work Phone: Comment on above: IG% - Immature Granu locytes (promyelocytes, myelocytes and metamyelocytes) > 1% indicates that a LEFT SHIFT is Present. MCH (RBC) [Entitic mass] 27.0 pg 27.0-32.0 [facility] Work Phone: Nucleated RBC/100 WBC (Bld) [Ratio] 0 % 0-5 [facility] Work Phone: MCHC Auto (RBC) [Mass/Vol]on 11-02-2021 MCHC (RBC) [Mass/Vol] 32.1 g/dL 32-36 [facility] Work Phone: Platelets bldon 11-02-2021 Platelets (Bld) [#/Vol] 184 10*3/uL 150-450 [facility] Work Phone: Basophil percentageon 2021 Bilirubin [Mass/Vol] 0.70 mg/dL 0.20-1.00 [facility] Work Phone: Comment on above: For patients on eltr ombopag therapy, use of Dimension [place] TBIL is not recommended. Chloride [Moles/Vol] 105 mmol/L 98-107 [facility] Work Phone: Cholesterol [Mass/Vol] 197 mg/dL <200 [facility] Work Phone: Comment on above: <200 mg/dL Desirable 200-240 mg/dL Borderline >240 mg/dL High Risk Glucose [Mass/Vol] 94 mg/dL 74-106 [facility] Work Phone: Potassium [Moles/Vol] 4.1 mmol/L 3.5-5.1 [facility] Work Phone: Protein [Mass/Vol] 7.3 g/dL 6.4-8.2 [facility] Work Phone: Sodium [Moles/Vol] 139 mmol/L 136-145 [facility] Work Phone: Triglyceride [Mass/Vol] 80 mg/dL [facility] Work Phone: Comment on above: The drugs N-Acetylcy steine and Metamizole may falsely depress this assay.Serum Triglycerides Reference Interval Normal <150 mg/dL Borderline high 150 - 199 mg/dL High 200 - 499 mg/dL Very High > or = 500 mg/dL Laboratory - Chemistry and C hemistry - challengeon 10-02-2021 ALP [Catalytic activity/Vol] 96 U/L 45-117 [facility] Work Phone: ALT [Catalytic activity/Vol] 42 U/L 16-61 [facility] Work Phone: CO2 [Moles/Vol] 26.0 mmol/L 21.0-32.0 [facility] Work Phone: Globulin (S) [Mass/Vol] 3.0 g/dL 2.2-4.2 [facility] Work Phone: Urea nitrogen/Creatinine [Mass ratio] 16.9 mg/mg 10-20 [facility] Work Phone: No Panel Informationon 10-02 Estimated GFR (MDRD) Amer 123 mL/min >60 [facility] Work Phone: Comment on above: GFR Calc Estimated GFR (MDRD) Non-Af Amer 101 mL/min >60 [facility] Work Phone: Comment on above: Non- GFR Calc Serum or plasma albumin dangelo urement (mass/volume)on 10-02-2021 Albumin [Mass/Vol] 4.3 g/dL 3.2-5.0 [facility] Work Phone: Serum or plasma albumin/glob ulin mass ratioon 10-02-2021 Albumin/Globulin [Mass ratio] 1.4 {ratio} 0.9-2.4 [facility] Work Phone: Serum or plasma calcium dangelo urement (mass/volume)on 10-02-2021 Calcium [Mass/Vol] 9.0 mg/dL 8.5-10.1 [facility] Work Phone: Serum or plasma cholesterol in HDL measurement (mass/volume)on 10-02-2021 Cholesterol in HDL [Mass/Vol] 50 mg/dL [facility] Work Phone: Comment on above: The drugs N-Acetylcy steine and Metamizole may falsely depress this assay. Reference Range HDL <40 mg/dL Low HDL Cholesterol HDL >or= 60 mg/dL High HDL Cholesterol Serum or plasma cholesterol in VLDL measurement (mass/volume)on 10-02-2021 Cholesterol in VLDL [Mass/Vol] 16 mg/dL 5-40 [facility] Work Phone: Serum or plasma creatinine m easurement (mass/volume)on 10-02-2021 Creatinine [Mass/Vol] 0.83 mg/dL 0.70-1.30 [facility] Work Phone: Comment on above: The validity of the calculated GFR & GFRAA in patients over 70 years has not been determined. Clinical correlation is essential. Serum or plasma low density lipoprotein (LDL) cholesterol measurement (mass/volume)on 10-02-2021 Cholesterol in LDL [Mass/Vol] 131 mg/dL 0-130 [facility] Work Phone: Serum or plasma urea nitroge n measurement (mass/volume)on 10-02-2021 Urea nitrogen [Mass/Vol] 14 mg/dL 7-18 [facility] Work Phone: Thin prep Papanicolaou smear with manual screeningon 10-02-2021 Thin prep Papanicolaou smear with manual screening 29 U/L 15-37 [facility] Work Phone: Thin prep Papanicolaou smear with manual screening 8 5-15 [facility] Work Phone: Basophil percentageon 2020 Chloride [Moles/Vol] 104 mmol/L 98-[address] [facility] Work Phone: Cholesterol [Mass/Vol] 259 mg/dL <200 [facility] Work Phone: Comment on above: <200 mg/dL Desirable 200-240 mg/dL Borderline >240 mg/dL High Risk Glucose [Mass/Vol] 97 mg/dL 74-106 [facility] Work Phone: Comment on above: Please note revised GLUCOSE reference range effective 2017. Potassium [Moles/Vol] 4.0 mmol/L 3.5-5.1 [facility] Work Phone: Sodium [Moles/Vol] 139 mmol/L 136-145 [facility] Work Phone: Triglyceride [Mass/Vol] 154 mg/dL [facility] Work Phone: Comment on above: The drugs N-Acetylcy steine and Metamizole may falsely depress this assay.Serum Triglycerides Reference Interval Normal <150 mg/dL Borderline high 150 - 199 mg/dL High 200 - 499 mg/dL Very High > or = 500 mg/dL Laboratory - Chemistry and C hemistry - challengeon 07-05-2021 CO2 [Moles/Vol] 28.0 mmol/L 21.0-32.0 [facility] Work Phone: Urea nitrogen/Creatinine [Mass ratio] 14.9 mg/mg 10-20 [facility] Work Phone: No Panel Informationon 07-05 Estimated GFR (MDRD) Amer 98 mL/min >60 [facility] Work Phone: Comment on above: GFR Calc Estimated GFR (MDRD) Non-Af Amer 81 mL/min >60 [facility] Work Phone: Comment on above: Non- GFR Calc Prostate Specific Antigen Screen 2.43 ng/mL 0.00-4.00 [facility] Work Phone: Comment on above: This test was perfor med using the TPSA assay method for theMir [employer] chemistry system. Values obtained with differentassay methods cannot be used interchangably.When changing PSA assays in the course of monitoring apatient, additional sequential testing should be carriedout to confirm baseline values. Serum or plasma calcium dangelo urement (mass/volume)on 07-05-2021 Calcium [Mass/Vol] 9.4 mg/dL 8.5-10.1 [facility] Work Phone: Serum or plasma cholesterol in HDL measurement (mass/volume)on 07-05-2021 Cholesterol in HDL [Mass/Vol] 43 mg/dL [facility] Work Phone: Comment on above: The drugs N-Acetylcy steine and Metamizole may falsely depress this assay. Reference Range HDL <40 mg/dL Low HDL Cholesterol HDL >or= 60 mg/dL High HDL Cholesterol Serum or plasma cholesterol in VLDL measurement (mass/volume)on 07-05-2021 Cholesterol in VLDL [Mass/Vol] 31 mg/dL 5-40 [facility] Work Phone: Serum or plasma creatinine m easurement (mass/volume)on 07-05-2021 Creatinine [Mass/Vol] 1.01 mg/dL 0.70-1.30 [facility] Work Phone: Comment on above: The validity of the calculated GFR & GFRAA in patients over 70 years has not been determined. Clinical correlation is essential. Serum or plasma low density lipoprotein (LDL) cholesterol measurement (mass/volume)on 07-05-2021 Cholesterol in LDL [Mass/Vol] 185 mg/dL 0-130 [facility] Work Phone: Serum or plasma urea nitroge n measurement (mass/volume)on 07-05-2021 Urea nitrogen [Mass/Vol] 15 mg/dL 7-18 [facility] Work Phone: Thin prep Papanicolaou smear with manual screeningon 07-05-2021 Thin prep Papanicolaou smear with manual screening 7 5-15 [facility] Work Phone: CNOVon 05-12-2019 CNOV Office Visit ([id number] ) -------- IRENE NIETO ([id number]) 1965 M Date Time Provider Department 05/12/19 3:00 PM HUY HOLM JR [id number] During your visit today, we recorded the following information about you: Temperature Weight Height 98.3 degrees 97.5 kg 1.727 m Aliya Valdivia CMA 05/20/2019 9:56 AM Signed 05/11/2019 Name:Irene Nieto Date of :1965 History of Chief Complaint: Irene is seeing me as a new patient today. He complains of possible compartment syndrome of the upper extremities. He has stiffness of all the interphalangeal and metacarpophalangeal joints of the fingers. He also has numbness and tingling with the right hand. PAST MEDICAL HISTORY Diagnosis Date - Essential hypertension, benign - Injury of brachial artery, initial encounter 12/24/2018 - Lumbago - Obstructive sleep apnea PAST SURGICAL HISTORY Procedure Laterality Date - PAST SURGICAL HISTORY OF left knee - PAST SURGICAL HISTORY OF Left vascular repair, forearm decompression, carpal tunnel release and wound debridements with vac application - PAST SURGICAL HISTORY OF fasciotomy closure - [place] ANESTH,BICEPS TENDON REPAIR Left Social History Socioeconomic History Marital status: Spouse name: Not on file Number of children: Not on file Years of education: Not on file Highest education level: Not on file Occupational History Not on file Social Needs Financial resource strain: Not on file Food insecurity: Worry: Not on file Inability: Not on file Transportation needs: Medical: Not on file Non-medical: Not on file Tobacco Use Smoking status: Never Smoker Smokeless tobacco: Never Used Substance and Sexual Activity Alcohol use: No Drug use: No Sexual activity: Not on file Lifestyle Physical activity: Days per week: Not on file Minutes per session: Not on file Stress: Not on file Relationships Social connections: Talks on phone: Not on file Gets together: Not on file Attends adventism service: Not on file Active member of club or organization: Not on file Attends meetings of clubs or organizations: Not on file Relationship status: Not on file Intimate partner violence: Fear of current or ex partner: Not on file Emotionally abused: Not on file Physically abused: Not on file Forced sexual activity: Not on file Other Topics Concerns: Service: Not Asked Blood Transfusions: Not Asked Caffeine Concern: No Occupational Exposure: Not Asked Hobby Hazards: Not Asked Sleep Concern: Not Asked Stress Concern: Not Asked Weight Concern: Not Asked Special Diet: No Back Care: Not Asked Exercise: No Bike Helmet: Not Asked Seat Belt: Not Asked Self-Exams: Not Asked Social History Narrative Not on file ALLERGIES Allergen Reactions - Sudafed [Pseudoephe* Other: See Comments Severe htn, elevated HR Current Outpatient Medications Medication Sig Dispense Refill - RAMÍREZ ORAL Take by mouth. - VITAMIN B COMPLEX ORAL Take by mouth. - cholecalciferol, vitamin D3, (VITAMIN D3 ORAL) Take by mouth. - cyanocobalamin, vitamin B-12, (VITAMIN B-12 ORAL) Take by mouth. - ascorbic acid (VITAMIN C ORAL) Take by mouth. - CAPSICUM, CAYENNE, ORAL Take by mouth. - DULoxetine (CYMBALTA) 20 mg capsule - nortriptyline (PAMELOR) 50 mg capsule - tiZANidine (ZANAFLEX) 4 mg tablet - oxyCODONE IR (ROXICODONE) 5 mg immediate release tablet Take 5 mg by mouth every 8 hours as needed. - buprenorphine (BUTRANS) 5 mcg/hour - gabapentin (NEURONTIN) 300 mg capsule - omeprazole (PRILOSEC) 20 mg capsule Take 20 mg by mouth once daily. - armodafinil (NUVIGIL) 150 mg tab Take 75 mg by mouth once daily. For shift work disorder No current facility-administered medications for this visit. VITALS Temp 36.8 ?C (98.3 ?F) Ht 172.7 cm (5' 8) Wt 97.5 kg (215 lb) BMI 32.69 kg/m? PHYSICAL EXAMINATION: General: he is a well developed, well nourished male Psyche: he is alert and oriented and cooperative to our examination Skin: Skin condition is healthy without rashes or erythema. Cadiovascular: Palpable radial pulse with brisk cap refill distally Neck: Supple with no JVD Lymph: There is no palpable epitrochlear Pulmonary: he has non labored breathing. There is no evidence of cyanosis. There is no clubbing of his fingernails. he has no pursed lips. Neuro: he is alert and oriented x3. There are no focal neurologic deficits. See sensation exam below. Head: Normocephalic and atraumatic Musculoskeletal: There is no swelling or ecchymosis.There are no skin lacerations or abrasions.There are no Heberden's or Jae's nodes. There is no boutonniere or swan-neck deformity of the fingers.There is no ulnar drift of the fingers.There is no intrinsic muscular atrophy.There is a negative shoulder sign over the thumb CMC joint. There is no dorsal subluxation of the ulnar head. Left Shoulder 5/5. Elbow flexion 5/5 elbow extension 5/5. Brachial radialis 5/5 Wrist extensors 5/5. Wrist flexor 5/5 FPL 2/5 Finger flexors 4/5 finger extensors 4/5. He has stiffness of all the interphalangeal and metacarpophalangeal joints of the fingers. He has a 45 degree flexion contracture at the PIP Joint of his left index finger. Nerve conductions study: Electrodiagnostic testing was significant for neuropathy of all nerves assessed in the left upper extremity consistent with the patients history Imaging: No imaging obtained Assessment: 1.Injury of radial artery at left forearm level, initial encounter [S55.102A] Plan: I do not recommend any surgical treatment at this time. He has significant stiffness and joint contractures of the fingers. I would like him to work on some range of motion exercises to help with stiffness. I would like to see him back in 3 months. All of the patients questions were answered to his satisfaction. I reviewed diagnosis with patient verbally. We discussed his treatment options in depth and established a course of treatment suited to him. - Scribe Attestation Statement: Scribe Statement: I, Aliya Valdivia CMA, am scribing for, and in the presence of Huy Holm MD Scribe: Aliya Valdivia CMA - Clinician Attestation Statement: The information in this document, created by the medical accountant for me, accurately reflects the services I personally performed and the decisions made by me. I have reviewed and approved this document for accuracy. ? Huy Holm MD Please note: This note has been produced using speech recognition software and may contain errors related to that system including grammar, punctuation, spelling, gender and words and phrases that may be inappropriate. Greg Iyer 05/20/2019 9:56 AM Signed REVIEW OF SYSTEMS: GENERAL: Well developed, well nourished. No acute distress PAIN: Pain yes and Chronic Pain yes CARDIOVASCULAR: Negative for chest pain, leg swelling and palpations. MSK: Negative for joint pain, swelling, back pain, muscle pain. SKIN: Negative for lesions, rash, itching, metal sensitivity NEURO: Numbness/tingling of extremties and yes ENDOCRINE: Negative for Diabetes Type 1 and Type 2 HEMATOLOGY: Negative for excessive bleeding, clots, bleeding disorders. Referring Provider: MITCHELL WINTER [[id number]] Allergies As of Date: 05/12/2019 Noted Allergy Reaction SUDAFED (PSEUDOEPHEDRINE) 09/28/2010 14 - Other: See Comments Comments: Severe htn, elevated HR Date Reviewed: 05/12/2019 Reviewed by: Huy Holm Jr. - Fully Assessed Reason for Visit: Consult [502] Cmt: left forearm Reason For Visit History Recorded Primary Visit Diagnosis:Injury of radial artery at left forearm level, initial encounter [S55.102A] Prescriptions as of 05/12/2019 Sig: RAMÍREZ ORAL Take by mouth. VITAMIN B COMPLEX ORAL Take by mouth. VITAMIN D3 ORAL Take by mouth. VITAMIN B-12 ORAL Take by mouth. VITAMIN C ORAL Take by mouth. CAPSICUM (CAYENNE) ORAL Take by mouth. DULOXETINE 20 MG CAPSULE,ROGERIO* NORTRIPTYLINE 50 MG CAPSULE TIZANIDINE 4 MG TABLET OXYCODONE 5 MG TABLET Take 5 mg by mouth every 8 ho* BUPRENORPHINE 5 MCG/HOUR WEEK* GABAPENTIN 300 MG CAPSULE OMEPRAZOLE 20 MG CAPSULE,ROGERIO* Take 20 mg by mouth once ori* ARMODAFINIL 150 MG TABLET Take 75 mg by mouth once ori* Problem List As Of Date 05/12/2019 Noted Resolved HYPERLIPIDEMIA NEC/NOS [E78.5] 03/22/2006 Essential hypertension, benign [I10] 10/16/2006 DISC DEGENERATION NOS [[id number]] 04/12/2007 LUMBAGO [M54.5] 04/22/2007 Tendonitis of ankle [M77.50] 08/16/2010 DILCIA (obstructive sleep apnea) [G47.33] 03/21/2011 Rhinitis [J31.0] 03/21/2011 Obesity, Class I, BMI 30-34.9 [E66.9] 12/24/2018 Injury of radial artery at forearm level, left,*12/24/2018 More... Limb ischemia [I99.8] 12/24/2018 More... Obesity, Class II, BMI 35-39.9 [E66.9] 12/27/2018 Disposition: Return in about 3 months (around 08/12/2019). Follow-up and Disposition History Recorded Encounter Status:Closed by HUY HOLM MD on 05/20/19 [facility] PROGRESSon 05-12-2019 PROGRESS HNO ID: [id number] Author: Tony Hammer (Tech) Service: ? Author Type: Rn Outpatient Surgery Type: Progress Notes Filed: 05/20/2019 9:56 AM Note Text: REVIEW OF SYSTEMS: GENERAL: Well developed, well nourished. No acute distress PAIN: Pain yes and Chronic Pain yes CARDIOVASCULAR: Negative for chest pain, leg swelling and palpations. MSK: Negative for joint pain, swelling, back pain, muscle pain. SKIN: Negative for lesions, rash, itching, metal sensitivity NEURO: Numbness/tingling of extremties and yes ENDOCRINE: Negative for Diabetes Type 1 and Type 2 HEMATOLOGY: Negative for excessive bleeding, clots, bleeding disorders. [facility] PROGRESS HNO ID: [id number] Author: Aliya Valdivia Service: ? Author Type: Stunner Type: Progress Notes Filed: 05/20/2019 9:56 AM Note Text: 05/11/2019 Name:Irene Nieto Date of :1965 History of Chief Complaint: Irene is seeing me as a new patient today. He complains of possible compartment syndrome of the upper extremities. He has stiffness of all the interphalangeal and metacarpophalangeal joints of the fingers. He also has numbness and tingling with the right hand. PAST MEDICAL HISTORY Diagnosis Date - Essential hypertension, benign - Injury of brachial artery, initial encounter 12/24/2018 - Lumbago - Obstructive sleep apnea PAST SURGICAL HISTORY Procedure Laterality Date - PAST SURGICAL HISTORY OF left knee - PAST SURGICAL HISTORY OF Left vascular repair, forearm decompression, carpal tunnel release and wound debridements with vac application - PAST SURGICAL HISTORY OF fasciotomy closure - NV ANESTH,BICEPS TENDON REPAIR Left Social History Socioeconomic History Marital status: Spouse name: Not on file Number of children: Not on file Years of education: Not on file Highest education level: Not on file Occupational History Not on file Social Needs Financial resource strain: Not on file Food insecurity: Worry: Not on file Inability: Not on file Transportation needs: Medical: Not on file Non-medical: Not on file Tobacco Use Smoking status: Never Smoker Smokeless tobacco: Never Used Substance and Sexual Activity Alcohol use: No Drug use: No Sexual activity: Not on file Lifestyle Physical activity: Days per week: Not on file Minutes per session: Not on file Stress: Not on file Relationships Social connections: Talks on phone: Not on file Gets together: Not on file Attends adventism service: Not on file Active member of club or organization: Not on file Attends meetings of clubs or organizations: Not on file Relationship status: Not on file Intimate partner violence: Fear of current or ex partner: Not on file Emotionally abused: Not on file Physically abused: Not on file Forced sexual activity: Not on file Other Topics Concerns: Service: Not Asked Blood Transfusions: Not Asked Caffeine Concern: No Occupational Exposure: Not Asked Hobby Hazards: Not Asked Sleep Concern: Not Asked Stress Concern: Not Asked Weight Concern: Not Asked Special Diet: No Back Care: Not Asked Exercise: No Bike Helmet: Not Asked Seat Belt: Not Asked Self-Exams: Not Asked Social History Narrative Not on file ALLERGIES Allergen Reactions - Sudafed [Pseudoephe* Other: See Comments Severe htn, elevated HR Current Outpatient Medications Medication Sig Dispense Refill - RAMÍREZ ORAL Take by mouth. - VITAMIN B COMPLEX ORAL Take by mouth. - cholecalciferol, vitamin D3, (VITAMIN D3 ORAL) Take by mouth. - cyanocobalamin, vitamin B-12, (VITAMIN B-12 ORAL) Take by mouth. - ascorbic acid (VITAMIN C ORAL) Take by mouth. - CAPSICUM, CAYENNE, ORAL Take by mouth. - DULoxetine (CYMBALTA) 20 mg capsule - nortriptyline (PAMELOR) 50 mg capsule - tiZANidine (ZANAFLEX) 4 mg tablet - oxyCODONE IR (ROXICODONE) 5 mg immediate release tablet Take 5 mg by mouth every 8 hours as needed. - buprenorphine (BUTRANS) 5 mcg/hour - gabapentin (NEURONTIN) 300 mg capsule - omeprazole (PRILOSEC) 20 mg capsule Take 20 mg by mouth once daily. - armodafinil (NUVIGIL) 150 mg tab Take 75 mg by mouth once daily. For shift work disorder No current facility-administered medications for this visit. VITALS Temp 36.8 ?C (98.3 ?F) Ht 172.7 cm (5' 8) Wt 97.5 kg (215 lb) BMI 32.69 kg/m? PHYSICAL EXAMINATION: General: he is a well developed, well nourished male Psyche: he is alert and oriented and cooperative to our examination Skin: Skin condition is healthy without rashes or erythema. Cadiovascular: Palpable radial pulse with brisk cap refill distally Neck: Supple with no JVD Lymph: There is no palpable epitrochlear Pulmonary: he has non labored breathing. There is no evidence of cyanosis. There is no clubbing of his fingernails. he has no pursed lips. Neuro: he is alert and oriented x3. There are no focal neurologic deficits. See sensation exam below. Head: Normocephalic and atraumatic Musculoskeletal: There is no swelling or ecchymosis.There are no skin lacerations or abrasions.There are no Heberden's or Jae's nodes. There is no boutonniere or swan-neck deformity of the fingers.There is no ulnar drift of the fingers.There is no intrinsic muscular atrophy.There is a negative shoulder sign over the thumb CMC joint. There is no dorsal subluxation of the ulnar head. Left Shoulder 5/5. Elbow flexion 5/5 elbow extension 5/5. Brachial radialis 5/5 Wrist extensors 5/5. Wrist flexor 5/5 FPL 2/5 Finger flexors 4/5 finger extensors 4/5. He has stiffness of all the interphalangeal and metacarpophalangeal joints of the fingers. He has a 45 degree flexion contracture at the PIP Joint of his left index finger. Nerve conductions study: Electrodiagnostic testing was significant for neuropathy of all nerves assessed in the left upper extremity consistent with the patients history Imaging: No imaging obtained Assessment: 1.Injury of radial artery at left forearm level, initial encounter [S55.102A] Plan: I do not recommend any surgical treatment at this time. He has significant stiffness and joint contractures of the fingers. I would like him to work on some range of motion exercises to help with stiffness. I would like to see him back in 3 months. All of the patients questions were answered to his satisfaction. I reviewed diagnosis with patient verbally. We discussed his treatment options in depth and established a course of treatment suited to him. - Scribe Attestation Statement: Scribe Statement: I, Aliya Valdivia CMA, am scribing for, and in the presence of Huy Holm MD Scribe: Aliya Valdivia CMA - Clinician Attestation Statement: The information in this document, created by the medical accountant for me, accurately reflects the services I personally performed and the decisions made by me. I have reviewed and approved this document for accuracy. ? Huy Holm MD Please note: This note has been produced using speech recognition software and may contain errors related to that system including grammar, punctuation, spelling, gender and words and phrases that may be inappropriate. Normal [facility] OBSOLETEon 04-28-2019 OBSOLETE Procedure (AGSPINE3) -------- RIENE NIETO ([id number]) 1965 M Date Time Provider Department 04/28/19 12:00 PM CASSANDRA BRUNSON AGSPINE3 During your visit today, we recorded the following information about you: Pulse Blood pressure Weight Height 107/minute 173/81 97.5 kg 1.727 m Cassandra Brunson MD 04/28/2019 12:57 PM Signed The HANDP completed on 03/26/19 I have reviewed the history and physical and examined the patient and there are no changes unless noted below: No update and/or changes to Irene Nieto history and physical. Cassandra Brunson MD Timeout was performed to verify patient name, , allergies and procedure being performed at noon Patient is aware of potential risks and benefits of this procedure. Patient wishes to proceed. Procedure start time: 12:25PM Procedure end time: 12:50PM Electrodiagnostic testing was performed today. Full report and data will be scanned into the chart. Augustina Lock 04/28/2019 12:57 PM Signed Subjective HPI Review of Systems Eyes: Negative for blurred vision. Respiratory: Negative for shortness of breath. Cardiovascular: Negative for chest pain and leg swelling. Gastrointestinal: Negative for constipation, diarrhea, nausea and vomiting. Genitourinary: Negative for dysuria. Skin: Negative for itching. Neurological: Positive for tingling. Negative for dizziness, weakness and headaches. Endo/Heme/Allergies: Does not bruise/bleed easily. Psychiatric/Behavioral: Negative for depression and suicidal ideas. PAST MEDICAL HISTORY Diagnosis Date - Essential hypertension, benign - Injury of brachial artery, initial encounter 12/24/2018 - Lumbago - Obstructive sleep apnea PAST SURGICAL HISTORY Procedure Laterality Date - PAST SURGICAL HISTORY OF left knee - REMOVAL PES ANSERINE BURSECTOMY Left History reviewed. No pertinent family history. Social History Socioeconomic History Marital status: Spouse name: Not on file Number of children: Not on file Years of education: Not on file Highest education level: Not on file Occupational History Not on file Social Needs Financial resource strain: Not on file Food insecurity: Worry: Not on file Inability: Not on file Transportation needs: Medical: Not on file Non-medical: Not on file Tobacco Use Smoking status: Never Smoker Smokeless tobacco: Never Used Substance and Sexual Activity Alcohol use: No Drug use: No Sexual activity: Not on file Lifestyle Physical activity: Days per week: Not on file Minutes per session: Not on file Stress: Not on file Relationships Social connections: Talks on phone: Not on file Gets together: Not on file Attends adventism service: Not on file Active member of club or organization: Not on file Attends meetings of clubs or organizations: Not on file Relationship status: Not on file Intimate partner violence: Fear of current or ex partner: Not on file Emotionally abused: Not on file Physically abused: Not on file Forced sexual activity: Not on file Other Topics Concerns: Not on file Social History Narrative Not on file Current Meds RAMÍREZ ORAL Take by mouth. VITAMIN B COMPLEX ORAL Take by mouth. cholecalciferol, vitamin D3, (VITAMIN D3 ORAL) Take by mouth. cyanocobalamin, vitamin B-12, (VITAMIN B-12 ORAL) Take by mouth. ascorbic acid (VITAMIN C ORAL) Take by mouth. CAPSICUM, CAYENNE, ORAL Take by mouth. DULoxetine (CYMBALTA) 20 mg capsule nortriptyline (PAMELOR) 50 mg capsule tiZANidine (ZANAFLEX) 4 mg tablet oxyCODONE IR (ROXICODONE) 5 mg immediate release tablet Take 5 mg by mouth every 8 hours as needed. buprenorphine (BUTRANS) 5 mcg/hour gabapentin (NEURONTIN) 300 mg capsule omeprazole (PRILOSEC) 20 mg capsule Take 20 mg by mouth once daily. armodafinil (NUVIGIL) 150 mg tab Take 75 mg by mouth once daily. For shift work disorder Objective BP 173/81 Pulse 107 Ht 172.7 cm (5' 8) Wt 97.5 kg (215 lb) BMI 32.69 kg/m? Physical Exam Referring Provider: MITCHELL WINTER [[id number]] Allergies As of Date: 04/28/2019 Noted Allergy Reaction SUDAFED (PSEUDOEPHEDRINE) 09/28/2010 14 - Other: See Comments Comments: Severe htn, elevated HR Date Reviewed: 04/28/2019 Reviewed by: Augustina Lock - Fully Assessed Reason for Visit: EMG [2011] Primary Visit Diagnosis:Pain of left arm [M79.602] Order(s):MOTOR AND/SENS 7-8 NRV CNDJ PRECONF ELTRODE LIMB [[id number]] Order #: [id number] NEEDLE EMG EA EXTREMTY W/PARASPINL AREA COMPLETE [[id number]] Order #: [id number] Prescriptions as of 04/28/2019 Sig: RAMÍREZ ORAL Take by mouth. VITAMIN B COMPLEX ORAL Take by mouth. VITAMIN D3 ORAL Take by mouth. VITAMIN B-12 ORAL Take by mouth. VITAMIN C ORAL Take by mouth. CAPSICUM (CAYENNE) ORAL Take by mouth. DULOXETINE 20 MG CAPSULE,ROGERIO* NORTRIPTYLINE 50 MG CAPSULE TIZANIDINE 4 MG TABLET OXYCODONE 5 MG TABLET Take 5 mg by mouth every 8 ho* BUPRENORPHINE 5 MCG/HOUR WEEK* GABAPENTIN 300 MG CAPSULE OMEPRAZOLE 20 MG CAPSULE,ROGERIO* Take 20 mg by mouth once ori* ARMODAFINIL 150 MG TABLET Take 75 mg by mouth once ori* Problem List As Of Date 04/28/2019 Noted Resolved HYPERLIPIDEMIA NEC/NOS [E78.5] INVALID FOR* Essential hypertension, benign [I10] INVALID FOR* DISC DEGENERATION NOS [[id number]] INVALID FOR* LUMBAGO [M54.5] INVALID FOR* Tendonitis of ankle [M77.50] INVALID FOR* DILCIA (obstructive sleep apnea) [G47.33] INVALID FOR* Rhinitis [J31.0] INVALID FOR* Obesity, Class I, BMI 30-34.9 [E66.9] INVALID FOR* Injury of radial artery at forearm level, left,*INVALID FOR* More... Limb ischemia [I99.8] INVALID FOR* More... Obesity, Class II, BMI 35-39.9 [E66.9] INVALID FOR* Encounter Status:Closed by CASSANDRA BRUNSON MD on 04/28/19 [facility] PROCEDUREon 04-28-2019 PROCEDURE HNO ID: [id number] Author: Cassandra Brunson Service: ? Author Type: Physician Type: Procedures Filed: 04/28/2019 12:57 PM Note Text: The HANDP completed on 03/26/19 I have reviewed the history and physical and examined the patient and there are no changes unless noted below: No update and/or changes to Irene Nieto history and physical. Cassandra Brunson MD Timeout was performed to verify patient name, , allergies and procedure being performed at noon Patient is aware of potential risks and benefits of this procedure. Patient wishes to proceed. Procedure start time: 12:25PM Procedure end time: 12:50PM Electrodiagnostic testing was performed today. Full report and data will be scanned into the chart. [facility] PROGRESSon 04-28-2019 PROGRESS HNO ID: [id number] Author: Augustina Lock Service: ? Author Type: ? Type: Progress Notes Filed: 04/28/2019 12:57 PM Note Text: Subjective HPI Review of Systems Eyes: Negative for blurred vision. Respiratory: Negative for shortness of breath. Cardiovascular: Negative for chest pain and leg swelling. Gastrointestinal: Negative for constipation, diarrhea, nausea and vomiting. Genitourinary: Negative for dysuria. Skin: Negative for itching. Neurological: Positive for tingling. Negative for dizziness, weakness and headaches. Endo/Heme/Allergies: Does not bruise/bleed easily. Psychiatric/Behavioral: Negative for depression and suicidal ideas. PAST MEDICAL HISTORY Diagnosis Date - Essential hypertension, benign - Injury of brachial artery, initial encounter 12/24/2018 - Lumbago - Obstructive sleep apnea PAST SURGICAL HISTORY Procedure Laterality Date - PAST SURGICAL HISTORY OF left knee - REMOVAL PES ANSERINE BURSECTOMY Left History reviewed. No pertinent family history. Social History Socioeconomic History Marital status: Spouse name: Not on file Number of children: Not on file Years of education: Not on file Highest education level: Not on file Occupational History Not on file Social Needs Financial resource strain: Not on file Food insecurity: Worry: Not on file Inability: Not on file Transportation needs: Medical: Not on file Non-medical: Not on file Tobacco Use Smoking status: Never Smoker Smokeless tobacco: Never Used Substance and Sexual Activity Alcohol use: No Drug use: No Sexual activity: Not on file Lifestyle Physical activity: Days per week: Not on file Minutes per session: Not on file Stress: Not on file Relationships Social connections: Talks on phone: Not on file Gets together: Not on file Attends adventism service: Not on file Active member of club or organization: Not on file Attends meetings of clubs or organizations: Not on file Relationship status: Not on file Intimate partner violence: Fear of current or ex partner: Not on file Emotionally abused: Not on file Physically abused: Not on file Forced sexual activity: Not on file Other Topics Concerns: Not on file Social History Narrative Not on file Current Meds RAMÍREZ ORAL Take by mouth. VITAMIN B COMPLEX ORAL Take by mouth. cholecalciferol, vitamin D3, (VITAMIN D3 ORAL) Take by mouth. cyanocobalamin, vitamin B-12, (VITAMIN B-12 ORAL) Take by mouth. ascorbic acid (VITAMIN C ORAL) Take by mouth. CAPSICUM, CAYENNE, ORAL Take by mouth. DULoxetine (CYMBALTA) 20 mg capsule nortriptyline (PAMELOR) 50 mg capsule tiZANidine (ZANAFLEX) 4 mg tablet oxyCODONE IR (ROXICODONE) 5 mg immediate release tablet Take 5 mg by mouth every 8 hours as needed. buprenorphine (BUTRANS) 5 mcg/hour gabapentin (NEURONTIN) 300 mg capsule omeprazole (PRILOSEC) 20 mg capsule Take 20 mg by mouth once daily. armodafinil (NUVIGIL) 150 mg tab Take 75 mg by mouth once daily. For shift work disorder Objective BP 173/81 Pulse 107 Ht 172.7 cm (5' 8) Wt 97.5 kg (215 lb) BMI 32.69 kg/m? Physical Exam Normal [facility] CNOVon 03-26-2019 CNOV Office Visit (AGPOB1 ) -------- IRENE NIETO ([id number]) 1965 M Date Time Provider Department 03/26/19 2:00 PM MITCHELL WINTER AGPOB1 During your visit today, we recorded the following information about you: Respiration Weight Height 20/minute 104.3 kg 1.727 m Mitchell Winter MD 03/26/2019 9:33 PM Signed ORTHOPAEDIC OFFICE NOTE CHIEF COMPLAINT: left forearm injury HISTORY OF PRESENT ILLNESS: Irene Nieto is a 53 year old male who presents for reevaluation after left forearm fasciotomy wound closure?01/02/2019. The patient?sustained vascular injury to the left forearm during an elective biceps tendon repair at another institution?12/24/2018. He underwent multiple procedures including vascular repair,?forearm decompression, carpal tunnel release and wound debridements with vac application?on 12/24, 12/27 and 12/30/2018. He has been monitoring the central portion of his fasciotomy incision where a four cm scab remains with occasional expressible purulence. There is no erythema and overall much improved edema of the forearm and hand. The index finger has a progressive contracture. Patient has performed extensive occupational therapy with one visit left. 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 Remains enrolled in pain management. Reviewed nursing note and current pain scale. PAST MEDICAL HISTORY Diagnosis Date - Essential hypertension, benign - Injury of brachial artery, initial encounter 12/24/2018 - Lumbago - Obstructive sleep apnea PAST SURGICAL HISTORY Procedure Laterality Date - PAST SURGICAL HISTORY OF left knee History reviewed. No pertinent family history. Social History Tobacco Use - Smoking status: Never Smoker - Smokeless tobacco: Never Used Substance Use Topics - Alcohol use: No - Drug use: No MEDICATIONS: Current Outpatient Medications: DULoxetine (CYMBALTA) 20 mg capsule nortriptyline (PAMELOR) 50 mg capsule tiZANidine (ZANAFLEX) 4 mg tablet oxyCODONE IR (ROXICODONE) 5 mg immediate release tablet Take 5 mg by mouth every 8 hours as needed. buprenorphine (BUTRANS) 5 mcg/hour gabapentin (NEURONTIN) 300 mg capsule omeprazole (PRILOSEC) 20 mg capsule Take 20 mg by mouth once daily. armodafinil (NUVIGIL) 150 mg tab Take 75 mg by mouth once daily. For shift work disorder No current facility-administered medications for this visit. ALLERGIES: ALLERGIES Allergen Reactions - Sudafed [Pseudoephe* Other: See Comments Severe htn, elevated HR PHYSICAL EXAMINATION: Resp 20 Ht 5' 8 (1.73m) Wt 230 lb (104.3kg) BMI 34.98 kg/(m2). General Appearance: Well appearing, alert, in no acute distress, well-hydrated, well nourished. Skin: Skin color, texture, turgor normal, no suspicious rashes or lesions. Extremities: Left forearm and hand compartments soft and compressible. Volar fasciotomy incision healed except central portion with large 4 cm scabbed area. There is no surrounding fluctuance or erythema, but a scant amount of purulence is expressible from scab. Original surgical incision proximally healed. Demonstrates only a few degrees of wrist flex/ex. Index finger has strong flexion contracture at the PIP and DIP joints. Can minimally move remaining digits. Peripheral Pulses: Normal. Neurologic: Intact light touch sensation left upper extremity proximal to hand, decreased over radial distribution greater than other areas. IMAGES: No results found for this or any previous visit (from the past 36 hour(s)). ASSESSMENT AND PLAN: 1. Limb ischemia - ICD9: 459.9, ICD10: I99.8 Functional Plan: No restrictions with range of motion or weight bearing left upper extremity. Discussed functional return potential, which is very poor. Anticipate lifetime disability as his job requires unrestricted full weight bearing of the extremities. May benefit from hand surgery evaluation (consult to Dr. Shalini mazariegos) given digit flexion contracture, and if nerve function recovers he might be a candidate for tendon transfers. We have discussed EMG/NCS of the extremity, which will be deferred for hand evaluation. Assistance Devices: Uses orthoplast splint, but contracture has caused poor fit. Physical/Occupational Therapy: Finishing occupational therapy (only has 20 visits approved for a limb at risk for permanent loss of function). Recommended physical therapy that may focus on wrist and forearm motion. Prescription administered. Wound Care: Will place order for wound center ([facility]) evaluation and treatment recommendations for central portion of forearm incision, which previously had flexor tendon at its base. Pain Control: No change in pain regimen recommended, enrolled in pain management. Fragility Fracture: Not applicable. Additional: Office to provide notes for patient's disability insurance; fax number copied. No follow-ups on file. Mitchell Winter MD Referring Provider: MITCHELL WINTER [[id number]] Allergies As of Date: 03/26/2019 Noted Allergy Reaction SUDAFED (PSEUDOEPHEDRINE) 09/28/2010 14 - Other: See Comments Comments: Severe htn, elevated HR Date Reviewed: 03/26/2019 Reviewed by: Mitchell Winter - Fully Assessed Reason for Visit: Follow Up [171] Cmt: left arm surgery on 01/02/2019 Primary Visit Diagnosis:Limb ischemia [I99.8] Order(s):CONSULT TO PHYSICAL THERAPY (AG) [[id number]] Order #: [id number]: 1 CONSULT TO ORTHOPAEDICS [9026] Order #: [id number]: 1 Prescriptions as of 03/26/2019 Sig: DULOXETINE 20 MG CAPSULE,ROGERIO* NORTRIPTYLINE 50 MG CAPSULE TIZANIDINE 4 MG TABLET OXYCODONE 5 MG TABLET Take 5 mg by mouth every 8 ho* BUPRENORPHINE 5 MCG/HOUR WEEK* GABAPENTIN 300 MG CAPSULE OMEPRAZOLE 20 MG CAPSULE,ROGERIO* Take 20 mg by mouth once ori* ARMODAFINIL 150 MG TABLET Take 75 mg by mouth once ori* Problem List As Of Date 03/26/2019 Noted Resolved HYPERLIPIDEMIA NEC/NOS [E78.5] INVALID FOR* Essential hypertension, benign [I10] INVALID FOR* DISC DEGENERATION NOS [[id number]] INVALID FOR* LUMBAGO [M54.5] INVALID FOR* Tendonitis of ankle [M77.9] INVALID FOR* DILCIA (obstructive sleep apnea) [G47.33] INVALID FOR* Rhinitis [J31.0] INVALID FOR* Obesity, Class I, BMI 30-34.9 [E66.9] INVALID FOR* Injury of radial artery at forearm level, left,*INVALID FOR* More... Limb ischemia [I99.8] INVALID FOR* More... Obesity, Class II, BMI 35-39.9 [E66.9] INVALID FOR* Level of Service: POST-OP VISIT (NO CHARGE) NON-OB [24728] Follow-up and Disposition History Recorded Encounter Status:Closed by MITCHELL WINTER MD on 03/26/19 [facility] PROGRESSon 03-26-2019 PROGRESS HNO ID: [id number] Author: Mitchell Winter Service: ? Author Type: Physician Type: Progress Notes Filed: 03/26/2019 9:33 PM Note Text: ORTHOPAEDIC OFFICE NOTE CHIEF COMPLAINT: left forearm injury HISTORY OF PRESENT ILLNESS: Irene Nieto is a 53 year old male who presents for reevaluation after left forearm fasciotomy wound closure?01/02/2019. The patient?sustained vascular injury to the left forearm during an elective biceps tendon repair at another institution?12/24/2018. He underwent multiple procedures including vascular repair,?forearm decompression, carpal tunnel release and wound debridements with vac application?on 12/24, 12/27 and 12/30/2018. He has been monitoring the central portion of his fasciotomy incision where a four cm scab remains with occasional expressible purulence. There is no erythema and overall much improved edema of the forearm and hand. The index finger has a progressive contracture. Patient has performed extensive occupational therapy with one visit left. 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 Remains enrolled in pain management. Reviewed nursing note and current pain scale. PAST MEDICAL HISTORY Diagnosis Date - Essential hypertension, benign - Injury of brachial artery, initial encounter 12/24/2018 - Lumbago - Obstructive sleep apnea PAST SURGICAL HISTORY Procedure Laterality Date - PAST SURGICAL HISTORY OF left knee History reviewed. No pertinent family history. Social History Tobacco Use - Smoking status: Never Smoker - Smokeless tobacco: Never Used Substance Use Topics - Alcohol use: No - Drug use: No MEDICATIONS: Current Outpatient Medications: DULoxetine (CYMBALTA) 20 mg capsule nortriptyline (PAMELOR) 50 mg capsule tiZANidine (ZANAFLEX) 4 mg tablet oxyCODONE IR (ROXICODONE) 5 mg immediate release tablet Take 5 mg by mouth every 8 hours as needed. buprenorphine (BUTRANS) 5 mcg/hour gabapentin (NEURONTIN) 300 mg capsule omeprazole (PRILOSEC) 20 mg capsule Take 20 mg by mouth once daily. armodafinil (NUVIGIL) 150 mg tab Take 75 mg by mouth once daily. For shift work disorder No current facility-administered medications for this visit. ALLERGIES: ALLERGIES Allergen Reactions - Sudafed [Pseudoephe* Other: See Comments Severe htn, elevated HR PHYSICAL EXAMINATION: Resp 20 Ht 5' 8 (1.73m) Wt 230 lb (104.3kg) BMI 34.98 kg/(m2). General Appearance: Well appearing, alert, in no acute distress, well-hydrated, well nourished. Skin: Skin color, texture, turgor normal, no suspicious rashes or lesions. Extremities: Left forearm and hand compartments soft and compressible. Volar fasciotomy incision healed except central portion with large 4 cm scabbed area. There is no surrounding fluctuance or erythema, but a scant amount of purulence is expressible from scab. Original surgical incision proximally healed. Demonstrates only a few degrees of wrist flex/ex. Index finger has strong flexion contracture at the PIP and DIP joints. Can minimally move remaining digits. Peripheral Pulses: Normal. Neurologic: Intact light touch sensation left upper extremity proximal to hand, decreased over radial distribution greater than other areas. IMAGES: No results found for this or any previous visit (from the past 36 hour(s)). ASSESSMENT AND PLAN: 1. Limb ischemia - ICD9: 459.9, ICD10: I99.8 Functional Plan: No restrictions with range of motion or weight bearing left upper extremity. Discussed functional return potential, which is very poor. Anticipate lifetime disability as his job requires unrestricted full weight bearing of the extremities. May benefit from hand surgery evaluation (consult to Dr. Shalini mazareigos) given digit flexion contracture, and if nerve function recovers he might be a candidate for tendon transfers. We have discussed EMG/NCS of the extremity, which will be deferred for hand evaluation. Assistance Devices: Uses orthoplast splint, but contracture has caused poor fit. Physical/Occupational Therapy: Finishing occupational therapy (only has 20 visits approved for a limb at risk for permanent loss of function). Recommended physical therapy that may focus on wrist and forearm motion. Prescription administered. Wound Care: Will place order for wound center ([facility]) evaluation and treatment recommendations for central portion of forearm incision, which previously had flexor tendon at its base. Pain Control: No change in pain regimen recommended, enrolled in pain management. Fragility Fracture: Not applicable. Additional: Office to provide notes for patient's disability insurance; fax number copied. No follow-ups on file. Mitchell Winter MD [facility] 02-12-2019 [facility] Office Visit (AGPOB1 ) -------- IRENE NIETO ([id number]) 1965 M Date Time Provider Department 02/12/19 2:15 PM MITCHELL WINTER [id number] During your visit today, we recorded the following information about you: Respiration Weight Height 17/minute 104.3 kg 1.727 m Mitchell Winter MD 02/22/2019 8:14 AM Signed REVIEW OF SYSTEMS: GENERAL: NO FATIGUE OR MALAISE PAIN: Pain HAND CARDIOVASCULAR: Negative for chest pain, leg swelling and palpations. MSK: Negative for joint pain, swelling, back pain, muscle pain. SKIN: Negative for lesions, rash, itching, metal sensitivity NEURO: Negative for seizure, trauma, numbness/tingling of extremities. ENDOCRINE: Negative for Diabetes Type 1 and Type 2 HEMATOLOGY: Negative for excessive bleeding, clots, bleeding disorders. ORTHOPAEDIC OFFICE NOTE CHIEF COMPLAINT: left forearm injury HISTORY OF PRESENT ILLNESS: Irene Nieto is a 53 year old male who presents for reevaluation after left forearm fasciotomy wound closure 01/02/2019. The patient sustained vascular injury to the left forearm during an elective biceps tendon repair at another institution?12/24/2018. He underwent multiple procedures including vascular repair,?forearm decompression, carpal tunnel release and wound debridements with vac application on 12/24, 12/27 and 12/30/2018. Notes initial central dehiscence of fasciotomy wound that has been managed conservatively with steri strips, daily washes and oral antibiotics. Has discontinued strips. Overall swelling and redness much improved. No fevers chills nausea or vomiting. Has volar pain, greatest over wrist crease. Motor function about the same with index flexion. Uses thermoplast splint at most times. Performing therapy. Reviewed nursing note and current pain scale. PAST MEDICAL HISTORY Diagnosis Date - Essential hypertension, benign - Injury of brachial artery, initial encounter 12/24/2018 - Lumbago - Obstructive sleep apnea PAST SURGICAL HISTORY Procedure Laterality Date - PAST SURGICAL HISTORY OF left knee History reviewed. No pertinent family history. Social History Tobacco Use - Smoking status: Never Smoker - Smokeless tobacco: Never Used Substance Use Topics - Alcohol use: No - Drug use: No MEDICATIONS: Current Outpatient Medications: buprenorphine (BUTRANS) 5 mcg/hour gabapentin (NEURONTIN) 300 mg capsule omeprazole (PRILOSEC) 20 mg capsule Take 20 mg by mouth once daily. armodafinil (NUVIGIL) 150 mg tab Take 75 mg by mouth once daily. For shift work disorder No current facility-administered medications for this visit. ALLERGIES: ALLERGIES Allergen Reactions - Sudafed [Pseudoephe* Other: See Comments Severe htn, elevated HR PHYSICAL EXAMINATION: Resp 17 Ht 5' 8 (1.73m) Wt 230 lb (104.3kg) BMI 34.98 kg/(m2). General Appearance: Well appearing, alert, in no acute distress, well-hydrated, well nourished. Skin: Skin color, texture, turgor normal, no suspicious rashes or lesions. Extremities: Left forearm volar fasciotomy wound with 4 cm x 0.5 cm central area of widening; fibrinous tissue and flexor tendon at base of otherwise sealed wound. Minimal surrounding erythema. Extremity edema from elbow to hand much improved with soft compartments and skin wrinkling. Demonstrates 3/5 index flexion and slight thumb adduction. Long and ring digits with slight flexion. No wrist active motion. Peripheral Pulses: Normal. Neurologic: Scattered touch sensation distally in the extremity; some touch testing elicits pain/paresthesia response. IMAGES: No results found for this or any previous visit (from the past 36 hour(s)). ASSESSMENT AND PLAN: 1. Limb ischemia - ICD9: 459.9, ICD10: I99.8 Functional Plan: No restrictions left upper extremity. Assistance Devices: Thermoplast splint for comfort and to maintain neutral position. Physical/Occupational Therapy: Ongoing. Wound Care: Continued daily soap and water washes left forearm. Central area of dehiscence may require surgical closure; overall extremity appearance much improved with blister resolution, decreased edema and remainder of incision healing. Will monitor and decide at next visit. Pain Control: Enrolled in pain management. Fragility Fracture: Not applicable. Additional: Continue to monitor for motor and sensory return to function; seems to be minimal progression from prior visit. Can get EMG/NCS at next visit to check for return potential. Discussed in detail with patient and family. Return in about 6 weeks (around 03/26/2019). Mitchell Winter MD Referring Provider: MITCHELL WINTER [[id number]] Allergies As of Date: 02/12/2019 Noted Allergy Reaction SUDAFED (PSEUDOEPHEDRINE) 09/28/2010 14 - Other: See Comments Comments: Severe htn, elevated HR Date Reviewed: 02/12/2019 Reviewed by: Mitchell Winter - Fully Assessed Reason for Visit: Follow Up [171] Cmt: LT arm Primary Visit Diagnosis:Limb ischemia [I99.8] Prescriptions as of 02/12/2019 Sig: BUPRENORPHINE 5 MCG/HOUR WEEK* GABAPENTIN 300 MG CAPSULE OMEPRAZOLE 20 MG CAPSULE,ROGERIO* Take 20 mg by mouth once ori* ARMODAFINIL 150 MG TABLET Take 75 mg by mouth once ori* Problem List As Of Date 02/12/2019 Noted Resolved HYPERLIPIDEMIA NEC/NOS [E78.5] INVALID FOR* Essential hypertension, benign [I10] INVALID FOR* DISC DEGENERATION NOS [[id number]] INVALID FOR* LUMBAGO [M54.5] INVALID FOR* Tendonitis of ankle [M77.9] INVALID FOR* DILCIA (obstructive sleep apnea) [G47.33] INVALID FOR* Rhinitis [J31.0] INVALID FOR* Obesity, Class I, BMI 30-34.9 [E66.9] INVALID FOR* Injury of radial artery at forearm level, left,*INVALID FOR* More... Limb ischemia [I99.8] INVALID FOR* More... Obesity, Class II, BMI 35-39.9 [E66.9] INVALID FOR* Level of Service: POST-OP VISIT (NO CHARGE) NON-OB [[id number]] Disposition: Return in about 6 weeks (around 03/26/2019). Follow-up and Disposition History Recorded Encounter Status:Closed by MITCHELL WINTER MD on 02/22/19 [facility] PROGRESSon 02-12-2019 PROGRESS HNO ID: [id number] Author: Mitchell Winter Service: ? Author Type: Physician Type: Progress Notes Filed: 02/22/2019 8:14 AM Note Text: REVIEW OF SYSTEMS: GENERAL: NO FATIGUE OR MALAISE PAIN: Pain HAND CARDIOVASCULAR: Negative for chest pain, leg swelling and palpations. MSK: Negative for joint pain, swelling, back pain, muscle pain. SKIN: Negative for lesions, rash, itching, metal sensitivity NEURO: Negative for seizure, trauma, numbness/tingling of extremities. ENDOCRINE: Negative for Diabetes Type 1 and Type 2 HEMATOLOGY: Negative for excessive bleeding, clots, bleeding disorders. ORTHOPAEDIC OFFICE NOTE CHIEF COMPLAINT: left forearm injury HISTORY OF PRESENT ILLNESS: Irene Nieto is a 53 year old male who presents for reevaluation after left forearm fasciotomy wound closure 01/02/2019. The patient sustained vascular injury to the left forearm during an elective biceps tendon repair at another institution?12/24/2018. He underwent multiple procedures including vascular repair,?forearm decompression, carpal tunnel release and wound debridements with vac application on 12/24, 12/27 and 12/30/2018. Notes initial central dehiscence of fasciotomy wound that has been managed conservatively with steri strips, daily washes and oral antibiotics. Has discontinued strips. Overall swelling and redness much improved. No fevers chills nausea or vomiting. Has volar pain, greatest over wrist crease. Motor function about the same with index flexion. Uses thermoplast splint at most times. Performing therapy. Reviewed nursing note and current pain scale. PAST MEDICAL HISTORY Diagnosis Date - Essential hypertension, benign - Injury of brachial artery, initial encounter 12/24/2018 - Lumbago - Obstructive sleep apnea PAST SURGICAL HISTORY Procedure Laterality Date - PAST SURGICAL HISTORY OF left knee History reviewed. No pertinent family history. Social History Tobacco Use - Smoking status: Never Smoker - Smokeless tobacco: Never Used Substance Use Topics - Alcohol use: No - Drug use: No MEDICATIONS: Current Outpatient Medications: buprenorphine (BUTRANS) 5 mcg/hour gabapentin (NEURONTIN) 300 mg capsule omeprazole (PRILOSEC) 20 mg capsule Take 20 mg by mouth once daily. armodafinil (NUVIGIL) 150 mg tab Take 75 mg by mouth once daily. For shift work disorder No current facility-administered medications for this visit. ALLERGIES: ALLERGIES Allergen Reactions - Sudafed [Pseudoephe* Other: See Comments Severe htn, elevated HR PHYSICAL EXAMINATION: Resp 17 Ht 5' 8 (1.73m) Wt 230 lb (104.3kg) BMI 34.98 kg/(m2). General Appearance: Well appearing, alert, in no acute distress, well-hydrated, well nourished. Skin: Skin color, texture, turgor normal, no suspicious rashes or lesions. Extremities: Left forearm volar fasciotomy wound with 4 cm x 0.5 cm central area of widening; fibrinous tissue and flexor tendon at base of otherwise sealed wound. Minimal surrounding erythema. Extremity edema from elbow to hand much improved with soft compartments and skin wrinkling. Demonstrates 3/5 index flexion and slight thumb adduction. Long and ring digits with slight flexion. No wrist active motion. Peripheral Pulses: Normal. Neurologic: Scattered touch sensation distally in the extremity; some touch testing elicits pain/paresthesia response. IMAGES: No results found for this or any previous visit (from the past 36 hour(s)). ASSESSMENT AND PLAN: 1. Limb ischemia - ICD9: 459.9, ICD10: I99.8 Functional Plan: No restrictions left upper extremity. Assistance Devices: Thermoplast splint for comfort and to maintain neutral position. Physical/Occupational Therapy: Ongoing. Wound Care: Continued daily soap and water washes left forearm. Central area of dehiscence may require surgical closure; overall extremity appearance much improved with blister resolution, decreased edema and remainder of incision healing. Will monitor and decide at next visit. Pain Control: Enrolled in pain management. Fragility Fracture: Not applicable. Additional: Continue to monitor for motor and sensory return to function; seems to be minimal progression from prior visit. Can get EMG/NCS at next visit to check for return potential. Discussed in detail with patient and family. Return in about 6 weeks (around 03/26/2019). Mitchell Winter MD [facility] PROGRESSon 01-19-2019 PROGRESS HNO ID: [id number] Author: Mitchell Winter Service: ? Author Type: Physician Type: Progress Notes Filed: 01/19/2019 8:16 AM Note Text: ORTHOPAEDIC OFFICE NOTE CHIEF COMPLAINT: left forearm injury HISTORY OF PRESENT ILLNESS: Irene Nieto is a 53 year old male who presents for post-operative evaluation after left forearm fasciotomy wound closure 01/02/2019. The patient sustained vascular injury to the left forearm during an elective biceps tendon repair at another institution?12/24/2018. He underwent multiple procedures including vascular repair, forearm decompression, carpal tunnel release and wound debridements with vac application on 12/24, 12/27 and 12/30/2018. He has returned to home and used a thermoplast splint to brace the extremity. Has minimal motor function return at this point, with the index finger flexion/extension being the most improved area. Has about the same light touch sensation about the radial side of the hand. Performing therapy for edema control and to promote motion. Notes continued severe pain which required inpatient Pain Management services. No fevers chills nausea or vomiting. Accompanied by family. Indicates he did have follow-up with original orthopaedic surgeon and none scheduled with vascular surgery at [facility]. Reviewed nursing note and current pain scale. PAST MEDICAL HISTORY Diagnosis Date - Essential hypertension, benign - Injury of brachial artery, initial encounter 12/24/2018 - Lumbago - Obstructive sleep apnea PAST SURGICAL HISTORY Procedure Laterality Date - PAST SURGICAL HISTORY OF left knee History reviewed. No pertinent family history. Social History Tobacco Use - Smoking status: Never Smoker - Smokeless tobacco: Never Used Substance Use Topics - Alcohol use: No - Drug use: No MEDICATIONS: Current Outpatient Medications: oxyCODONE-acetaminophen (PERCOCET) 5-325 mg tablet Take 1 tablet by mouth every 6 hours as needed for Pain for up to 7 days. doxycycline (VIBRA-TABS) 100 mg tablet Take 1 tablet by mouth twice daily for 10 days. enoxaparin (LOVENOX) 40 mg/0.4 mL syrg Inject 0.4 mL subcutaneously q 24 HR for 21 days. omeprazole (PRILOSEC) 20 mg capsule Take 20 mg by mouth once daily. armodafinil (NUVIGIL) 150 mg tab Take 75 mg by mouth once daily. For shift work disorder No current facility-administered medications for this visit. ALLERGIES: ALLERGIES Allergen Reactions - Sudafed [Pseudoephe* Other: See Comments Severe htn, elevated HR PHYSICAL EXAMINATION: Resp 15 Ht 5' 8 (1.73m) Wt 230 lb (104.3kg) BMI 34.98 kg/(m2). General Appearance: Well appearing, alert, in no acute distress, well-hydrated, well nourished. Skin: Skin color, texture, turgor normal, no suspicious rashes or lesions. Extremities: Left volar forearm with approximated incision and resolving edema. Vascular repair incision surrounding by pinkish tissue, likely from blister resolution but possibly increased erythema. No palpable areas of fluctuance. Left arm and forearm compartments soft and compressible. Demonstrates small arc of active left index finger flexion and extension, minimal range of long digit and none of the others. Peripheral Pulses: Normal. Hand and digits warm and pink with capillary refill. Neurologic: Intact light touch sensation thumb and index finger, decreases across radial border to none on the ulnar side of the hand. More proximally forearm light touch sensation intact. IMAGES: No results found for this or any previous visit (from the past 36 hour(s)). ASSESSMENT AND PLAN: 1. Limb ischemia - ICD9: 459.9, ICD10: I99.8 Functional Plan: No restrictions with weight bearing or range of motion left upper extremity. Assistance Devices: Splint as described for comfort, may utilize any therapy modalities to promote motion, prevent stiffness and control pain. Physical/Occupational Therapy: As above. Wound Care: Sutures removed left volar forearm fasciotomy wound, transverse vascular repair incision, carpal tunnel release incision. Recommended continued daily soap and water washes. Administered short prescription for doxycycline BID for prophylaxis given appearance of potential erythema about the original surgical incision. Pain Control: Administered prescription for oxycodone; PDMP reviewed. Placed outpatient pain management referral per request. Fragility Fracture: Not applicable. Additional: Discussed wound healing and potential for functional return in detail. Given the duration of limb ischemia (estimated at approximately 8 hours) there may be minimal recovery. Patient to decide regarding rat exterminator follow-up after wounds heal as he lives in [place]. Return in about 4 weeks (around 02/12/2019). [facility] ) -------- IRENE NIETO ([id number]) 1965 M Date Time Provider Department 01/15/19 2:00 PM MITCHELL WINTER GURWINDER AGPOB1 During your visit today, we recorded the following information about you: Respiration Weight Height 15/minute 104.3 kg 1.727 m Mitchell Wintre MD 01/19/2019 8:16 AM Signed ORTHOPAEDIC OFFICE NOTE CHIEF COMPLAINT: left forearm injury HISTORY OF PRESENT ILLNESS: Irene Nieto is a 53 year old male who presents for post-operative evaluation after left forearm fasciotomy wound closure 01/02/2019. The patient sustained vascular injury to the left forearm during an elective biceps tendon repair at another institution?12/24/2018. He underwent multiple procedures including vascular repair, forearm decompression, carpal tunnel release and wound debridements with vac application on 12/24, 12/27 and 12/30/2018. He has returned to home and used a thermoplast splint to brace the extremity. Has minimal motor function return at this point, with the index finger flexion/extension being the most improved area. Has about the same light touch sensation about the radial side of the hand. Performing therapy for edema control and to promote motion. Notes continued severe pain which required inpatient Pain Management services. No fevers chills nausea or vomiting. Accompanied by family. Indicates he did have follow-up with original orthopaedic surgeon and none scheduled with vascular surgery at [facility]. Reviewed nursing note and current pain scale. PAST MEDICAL HISTORY Diagnosis Date - Essential hypertension, benign - Injury of brachial artery, initial encounter 12/24/2018 - Lumbago - Obstructive sleep apnea PAST SURGICAL HISTORY Procedure Laterality Date - PAST SURGICAL HISTORY OF left knee History reviewed. No pertinent family history. Social History Tobacco Use - Smoking status: Never Smoker - Smokeless tobacco: Never Used Substance Use Topics - Alcohol use: No - Drug use: No MEDICATIONS: Current Outpatient Medications: oxyCODONE-acetaminophen (PERCOCET) 5-325 mg tablet Take 1 tablet by mouth every 6 hours as needed for Pain for up to 7 days. doxycycline (VIBRA-TABS) 100 mg tablet Take 1 tablet by mouth twice daily for 10 days. enoxaparin (LOVENOX) 40 mg/0.4 mL syrg Inject 0.4 mL subcutaneously q 24 HR for 21 days. omeprazole (PRILOSEC) 20 mg capsule Take 20 mg by mouth once daily. armodafinil (NUVIGIL) 150 mg tab Take 75 mg by mouth once daily. For shift work disorder No current facility-administered medications for this visit. ALLERGIES: ALLERGIES Allergen Reactions - Sudafed [Pseudoephe* Other: See Comments Severe htn, elevated HR PHYSICAL EXAMINATION: Resp 15 Ht 5' 8 (1.73m) Wt 230 lb (104.3kg) BMI 34.98 kg/(m2). General Appearance: Well appearing, alert, in no acute distress, well-hydrated, well nourished. Skin: Skin color, texture, turgor normal, no suspicious rashes or lesions. Extremities: Left volar forearm with approximated incision and resolving edema. Vascular repair incision surrounding by pinkish tissue, likely from blister resolution but possibly increased erythema. No palpable areas of fluctuance. Left arm and forearm compartments soft and compressible. Demonstrates small arc of active left index finger flexion and extension, minimal range of long digit and none of the others. Peripheral Pulses: Normal. Hand and digits warm and pink with capillary refill. Neurologic: Intact light touch sensation thumb and index finger, decreases across radial border to none on the ulnar side of the hand. More proximally forearm light touch sensation intact. IMAGES: No results found for this or any previous visit (from the past 36 hour(s)). ASSESSMENT AND PLAN: 1. Limb ischemia - ICD9: 459.9, ICD10: I99.8 Functional Plan: No restrictions with weight bearing or range of motion left upper extremity. Assistance Devices: Splint as described for comfort, may utilize any therapy modalities to promote motion, prevent stiffness and control pain. Physical/Occupational Therapy: As above. Wound Care: Sutures removed left volar forearm fasciotomy wound, transverse vascular repair incision, carpal tunnel release incision. Recommended continued daily soap and water washes. Administered short prescription for doxycycline BID for prophylaxis given appearance of potential erythema about the original surgical incision. Pain Control: Administered prescription for oxycodone; PDMP reviewed. Placed outpatient pain management referral per request. Fragility Fracture: Not applicable. Additional: Discussed wound healing and potential for functional return in detail. Given the duration of limb ischemia (estimated at approximately 8 hours) there may be minimal recovery. Patient to decide regarding rat exterminator follow-up after wounds heal as he lives in [place]. Return in about 4 weeks (around 02/12/2019). Mitchell Winter MD Referring Provider: EMERGENCY ROOM(HISTORY) [[id number]] Allergies As of Date: 01/15/2019 Noted Allergy Reaction SUDAFED (PSEUDOEPHEDRINE) 09/28/2010 14 - Other: See Comments Comments: Severe htn, elevated HR Date Reviewed: 01/15/2019 Reviewed by: Skip Orourke (Tech) - Fully Assessed Reason for Visit: Post-Op Visit [1236] Cmt: lt arm Primary Visit Diagnosis:Limb ischemia [I99.8] Order(s):oxyCODONE-aceta minophen (PERCOCET) 5-325 mg tabletTake 1 tablet by mouth every 6 hours as needed for Pain for up to 7 days.Disp: 28 tabletRfl: 0 CONSULT TO PAIN MGT ANESTHESIA [19991013] Order #: [id number]: 1 doxycycline (VIBRA-TABS) 100 mg tabletTake 1 tablet by mouth twice daily for 10 days.Disp: 20 tabletRfl: 0 Prescriptions as of 01/15/2019 Sig: OXYCODONE-ACETAMINOPHEN 5 MG-* Take 1 tablet by mouth every * DOXYCYCLINE HYCLATE 100 MG TA* Take 1 tablet by mouth twice * ENOXAPARIN 40 MG/0.4 ML SUBCU* Inject 0.4 mL subcutaneously * OMEPRAZOLE 20 MG CAPSULE,ROGERIO* Take 20 mg by mouth once ori* ARMODAFINIL 150 MG TABLET Take 75 mg by mouth once ori* Problem List As Of Date 01/15/2019 Noted Resolved HYPERLIPIDEMIA NEC/NOS [E78.5] INVALID FOR* Essential hypertension, benign [I10] INVALID FOR* DISC DEGENERATION NOS [OUW2803] INVALID FOR* LUMBAGO [M54.5] INVALID FOR* Tendonitis of ankle [M77.9] INVALID FOR* DILCIA (obstructive sleep apnea) [G47.33] INVALID FOR* Rhinitis [J31.0] INVALID FOR* Obesity, Class I, BMI 30-34.9 [E66.9] INVALID FOR* Injury of radial artery at forearm level, left,*INVALID FOR* More... Limb ischemia [I99.8] INVALID FOR* More... Obesity, Class II, BMI 35-39.9 [E66.9] INVALID FOR* Prescriptions ordered this encounter Disp Refills Start End OXYCODONE-ACETAMINOPHEN 5 MG-325 MG * 28 t* 0 01/15/2019 01/22/2019 Class: Print RX Route: ORAL Sig: Take 1 tablet by mouth every 6 hours as needed for Pain for up to 7 days. DOXYCYCLINE HYCLATE 100 MG TABLET 20 t* 0 01/15/2019 01/25/2019 Route: ORAL Sig: Take 1 tablet by mouth twice daily for 10 days. Level of Service: POST-OP VISIT (NO CHARGE) NON-OB [00184] Disposition: Return in about 4 weeks (around 02/12/2019). Follow-up and Disposition History Recorded Encounter Status:Closed by MITCHELL WINTER MD on 01/19/19 Normal [facility] Basic Panelon 01-05-2019 Creatinine [Mass/Vol] 0.72 mg/dL Normal 0.67-1.17 Utr on [facility] Comment on above: Performed By: #### G FR #### [place] [address] Anion gap [Moles/Vol] 8 mmol/L Normal 8-16 [facility] on [facility] Comment on above: Performed By: #### G FR #### [facility] [address] [place], [place] [address] Calcium [Mass/Vol] 8.7 mg/dL Normal 8.5-10.1 [facility] Comment on above: Performed By: #### G FR #### [facility] [address] [place], [place] [address] CO2 [Moles/Vol] 27 mmol/L Normal 21-32 [facility] Comment on above: Performed By: #### G FR #### [facility] [address] [place], [place] [address] Glucose [Mass/Vol] 110 mg/dL High 70-99 [facility] Comment on above: Performed By: #### G FR #### [facility] [address] [place] [address] Urea nitrogen [Mass/Vol] 10 mg/dL Normal 7-18 [facility] Comment on above: Performed By: #### G FR #### [facility] [address] [place] [address] Chloride [Moles/Vol] 103 mmol/L Normal 98-107 [facility] Comment on above: Performed By: #### G FR #### [facility] [address] [place], [place] [address] Potassium [Moles/Vol] 4.3 mmol/L Normal 3.5-5.1 [facility] Comment on above: Performed By: #### G FR #### [address] [address] Sodium [Moles/Vol] 134 mmol/L Low 136-145 [facility] Comment on above: Performed By: #### G FR #### [facility] [address] [place], [place] [address] CASE MANAGEMon 01-05-2019 CASE MANAGEM HNO ID: [id number] Author: Carmen (Rn) SCOTTY Seo Service: Care Management Author Type: Registered Nurse Type: Care Mgt Progress Note Filed: 01/05/2019 4:56 PM Note Text: CARE MANAGEMENT DISCHARGE NOTE SERVICE DATE: 01/05/2019 SERVICE TIME: 1655 LOS: 11 days Admission Date: 12/24/2018 DISCHARGE ARRANGEMENT (list agency and phone number) Home Provider: olivia Phone: olivia CAREGIVER ASSESSMENT: Caregiver is ready, willing and able to meet the patient's needs as recommended by the inter-professional team? Yes Patient's transition needs and plan for meeting these needs: per patient request outpatient PT OT Does the patient have an acute stroke diagnosis, or has the patient had a stroke during this admission? No HANDOFF COMMUNICATION: summary of care TRANSPORTATION ARRANGEMENTS: Car family ADDITIONAL CONTACT RESOURCES: 2 Discharge home today Patient refusing home care for sn, pt and ot Patient wishes to do outpatient PT OT SIGNATURE: Carmen Seo RN PATIENT NAME: Irene Nieto DATE: January 05, 2019 TIME: 4:55 PM PAGER/CONTACT #: [phone] [facility] CASE MANAGEM HNO ID: [id number] Author: Carmen (Rn) SCOTTY Seo Service: Care Management Author Type: Registered Nurse Type: Care Mgt Progress Note Filed: 01/05/2019 1:28 PM Note Text: CARE MANAGEMENT PROGRESS NOTE SERVICE DATE: 01/05/2019 SERVICE TIME: 1302 LOS: 11 days Met with patient. Anticipate home today. Patient does not want any Home care services. Per patient I am a nurse and my can help change the dressings. Requests outpatient OT PT and will Plans on going to [facility] RN updated; will need script for outpatient therapy and script for dressing supplies SIGNATURE: Carmen Seo RN PATIENT NAME: Irene Nieto DATE: January 05, 2019 TIME: 1:02 PM PAGER/CONTACT #: [phone] [facility] MDRD GFRon 01-05-2019 GFR/1.73 sq M predicted among non-blacks MDRD (S/P/Bld) [Vol rate/Area] mL/min/{1.73_m2} Normal >60mL/min/1 .73m2 [facility] Comment on above: Result Comment: If t he patient is , multiply the result by 1.210. Performed By: #### G FR #### [place] [address] NUTRITIONon 01-05-2019 NUTRITION HNO ID: [id number] Author: Fidelia Munoz) FLORENCIO Helm Service: Nutrition Therapy Author Type: Registered Dietitian Type: Nutrition Filed: 01/05/2019 1:38 PM Note Text: NUTRITION THERAPY PROGRESS NOTE SERVICE DATE: 01/05/2019 SERVICE TIME: 10:10 AM RECOMMENDED DIAGNOSIS: NO MALNUTRITION IDENTIFIED per Registered Dietitian on 12/31/18 NUTRITION CARE PLAN Problem, Etiology and Signs/Symptoms: Increased nutrient needs kcal/protein related to increased metabolic demand from surgery as evidenced by multiple forearm surgeries Intervention: Continue on Regular diet Coordination of Care: Nursing Monitor and Evaluation: Goal: Meet >75% of estimated needs Monitor fluid/electrolyte balance Monitor labs, I/Os, vital signs, weight Discharge Nutrition Recommendations: Diet: Regular --- Chart reviewed for follow-up Per HPI: 53 yo male presented from [place] underwent there a left bicep repair, transferred to [facility] for brachial artery injury. Underwent surgery for left carpal tunnel release and decompressive fasciotomy, left volar forearm. Underwent on 12/27/18 IAND D left forearm. Pending need for repeat IANDD and possible grafting. ? Interval History: Return to OR on 01/02/19 for repeat irrigation and debridement, wound closure and wound vac application. Pain management continues to follow and adjust medications. Noted wound vac removed 01/05/19 ACTIVE PROBLEM LIST Other and Unspecified Hyperlipidemia Essential hypertension, benign Degeneration of Intervertebral Disc, Site Unspecified Lumbago Tendonitis of Ankle Dilcia (Obstructive Sleep Apnea) Rhinitis Obesity, Class I, Bmi 30-34.9 Injury of Radial Artery At Forearm Level, Left, Initial Encounter Limb Ischemia Obesity, Class II, Bmi 35-39.9 PAST MEDICAL HISTORY Diagnosis Date - Essential hypertension, benign - Injury of brachial artery, initial encounter 12/24/2018 - Lumbago - Obstructive sleep apnea PAST SURGICAL HISTORY Procedure Laterality Date - PAST SURGICAL HISTORY OF left knee Social History Socioeconomic History Marital status: Spouse name: Not on file Number of children: Not on file Years of education: Not on file Highest education level: Not on file Social Needs Financial resource strain: Not on file Food insecurity - worry: Not on file Food insecurity - inability: Not on file Transportation needs - medical: Not on file Transportation needs - non-medical: Not on file Occupational History Not on file Tobacco Use Smoking status: Never Smoker Smokeless tobacco: Never Used Substance and Sexual Activity Alcohol use: No Drug use: No Sexual activity: Not on file Other Topics Concerns: Not on file Social History Narrative Not on file Nutritional Intake: >75% estimated energy needs over the past 11 day(s), tolerating po well and family bringing food from home Orders Placed This Encounter DIET REGULAR Standing Status: Standing Number of Occurrences: 1 Lines and Drains: Peripheral 01/02/19 1117 Right Antecubital 18 Gauge (Active) Drain/Tube 01/02/19 1215 Assessment (Active) Height: 172.7 cm (5' 8) Admission Weight: 99.8 kg (220 lb) Current Weight: 109.3 kg (240 lb 15.4 oz) Body mass index is 36.64 kg/m?. class 2 obesity Recent Labs 01/05/19 0535 GLUC 110* BUN 10 CREAT 0.72 NA 134* K 4.3 CHLOR 103 CO2 27 ALLERGIES Allergen Reactions - Sudafed [Pseudoephe* Other: See Comments Severe htn, elevated HR Current Facility-Administered Medications Medication Dose Route Frequency - acetaminophen 975 mg tab(s) (TYLENOL) 975 mg ORAL q 6 H PRN - diazePAM 5 mg tab(s) (VALIUM) 5 mg ORAL QID PRN - diphenhydrAMINE 50 mg injection (BENADRYL) 50 mg INTRAVENOUS q 6 H PRN - pill splitter (patient-specific) 1 Each Miscell. (Med.Supl.;Non-Drugs) PRN - senna-docusate 8.6-50 mg 2 tablet (SENNA-S) 2 tablet ORAL BID - enoxaparin 40 mg injection (LOVENOX) 40 mg SUBCUTANEOUS q 24 HR - therapeutic multivitamin with iron (THERAGRAN-M) 1 tablet ORAL DAILY - sodium chloride 0.65 % 2 [place] (AYR, OCEAN) 2 [place] EACH NOSTRIL PRN - polyethylene glycol 3350 17 g packet (MIRALAX, GLYCOLAX) 17 g ORAL DAILY PRN - bisacodyl 10 mg suppository (DULCOLAX) 10 mg RECTAL DAILY PRN - ondansetron 4 mg tab(s) (ZOFRAN) 4 mg ORAL q 6 H PRN Or - ondansetron (PF) 4 mg injection (ZOFRAN) 4 mg INTRAVENOUS q 6 H PRN - famotidine 20 mg tab(s) (PEPCID) 20 mg ORAL BID Date 01/04/19699 - 01/05/1965801/05/19699 - 01/06/19 06 Shift 0518-7109 7412-5683 3536-3681 24 Hour Total 9101-3582 2054-0173 5217-6061 24 Hour Total INTAKE PO 635 755 3004 360 360 PO 003 299 8272 360 360 Shift Total 446 387 8051 360 360 OUTPUT Urine 023 666 8778 2400 Void (ml) 259 177 3298 2400 Urine Not Saved. 1 x 1 x 2 x Drains 0 0 Negative Pressure: Output (mL) (Negative Pressure Wound Therapy 12/30/18 0921 Arm - Forearm Left) 0 0 Tubes 0 0 Drain/Tube Output (Drain/Tube 01/02/19 1215 Assessment ) 0 0 # of BMs Number of BMs 1 x 1 x Shift Total 131 111 4796 2400 Weight (kg) 109.3 109.3 109.3 109.3 109.3 109.3 109.3 109.3 Negative Pressure Wound Therapy 12/30/18 0921 Arm - Forearm Left (Active) Negative Pressure: Wound Filler Foam 01/04/2019 8:38 PM Negative Pressure: Therapy Continuous 01/04/2019 8:38 PM Negative Pressure: mmHg 125 mmHg 01/04/2019 8:38 PM Negative Pressure: Output (mL) 0 01/04/2019 8:43 AM Number of days: 6 Surgical Incision 01/02/19 1222 Arm-Left (Active) Dressing Status Other: See Comment 01/04/2019 8:38 PM Dressing /Treatment Type Negative Pressure Wound Therapy 01/04/2019 8:38 PM Incision Closures Sutures 01/04/2019 8:38 PM Drainage Description Serosanguineous 01/04/2019 8:38 PM Drainage Amount Scant 01/04/2019 8:38 PM Edges Other: See Comment 01/02/2019 7:40 PM Hematoma No 01/04/2019 8:38 PM Number of days: 2 Vitamin and Mineral Labs in the past year:No results for input(s): CHROMIUM, COPPER, MANGANESE, SELENIUM, VITAMINA, VITB1, VITB2, VITB6, B12, METHYLMAL, VITD25, VITAMINE, VITAK, ZINC, TIBC, FE, FRANCK in the last 8784 hours. MNT Billing Type: Re-assess/15 min 2 units SIGNATURE: Fidelia Helm RD, JASON PATIENT NAME: Irene Nieto DATE: January 05, 2019 TIME: 10:10 AM PAGER: [phone] [facility] PLAN OF CAREon 01-05-2019 PLAN OF CARE HNO ID: [id number] Author: Loraine Jasmine (Cylinder Sander Operator) Service: Pharmacy Author Type: ? Type: Plan of Care Filed: 01/05/2019 3:39 PM Note Text: ORTHOPEDIC PHYSICIAN ASSISTANT BEDSIDE DELIVERY SURVEY 1. Patient to use [facility] Bedside Delivery - NO insurance not accepted Insurance Information as follows: 2. Insurance card on file - YES 3. Credit card for payment - N/A Prescription insurance not contracted. Contact Loraine at [phone] with questions prior to discharge [facility] PROGRESSon 01-05-2019 Cholesterol [Mass/Vol] HNO ID: [id number] Author: Mitchell Rodriguez MD Service: Orthopaedic Surgery Author Type: Resident Type: Progress Notes Filed: 01/05/2019 1:16 PM Note Text: Wound vac removed. Non-adherent dressing followed by 4x4s and kerlex applied. SIGNATURE: Mitchell Rodriguez MD PATIENT NAME: Irene Nieto DATE: January 05, 2019 TIME: 1:16 PM PAGER/CONTACT #: [facility] PROGRESS HNO ID: [id number] Author: Timothy Dias Service: Pain Management Author Type: Physician Type: Progress Notes Filed: 01/05/2019 8:22 AM Note Text: PAIN CONSULTATION: Left arm pain;left arm radial and ulnar artery injury s/p POD5 repair, left forearm compartment syndrome s/p POD5 L forearm volar fasciotomy IRENE NIETO 53 year old male with LUE pain secondary to ischemia after radial and ulnar artery injury. He is s/pPOD 10 days repair; left forearm compartment syndrome s/p POD 5 forearm volar fasciotomy. He sates his pain is improved but persistent at 6-01/14. He describes some myoclonus last night but now resolved. 24 HOUR COMFORT MEDICATIONS: Acetaminophen 975 mg x 2 doses Flexeril 5mg x 1 Pain Description: Constant but better since unwrapped 6/10 INTERVAL HPI:Patient's pain is significantly improved. Reporting pain is not as intense as it previously was and no longer feels like a fire ball Still with wound vac that he is hoping to have stopped prior to d/c. He has not used any opiates in almost 48 hours. He maintains Oxyir makes him confused and feel weird so he would rather not use it. Subjective HPI: 53-year-old male, transferred from [facility] on 12/25/2018 secondary to avascular injury to his left upper extremity after a single incision distal biceps repair earlier that day. Approximately one week prior to his initial presentation, while constructing a pleural, the patient felt a sudden pop in his left arm, resulting in a rupture of his left distal biceps while lifting a heavy box. On the day of presentation, he underwent a left biceps repair with arthritis tendon button and screw. However, following that procedure he developed paresthesias in his left arm on the dorsal and volar aspects down to his fingers, and was unable to flex, extend his elbow, wrists, fingers, and there was concern that there was a brachial artery injury as a result of the surgery itself. He was taken emergently to the operating room from the emergency department here, where he underwent repair of the left radial artery, reimplantation of the left ulnar artery, left upper extremity fasciotomy and carpal tunnel release as well as a fasciotomy of the left forearm. During that surgery was identified that he had a laceration at the bifurcation of the ulnar and brachial arteries with compartment syndrome. His [place] prescription history is unremarkable except for one prescription for Nuvigil, and one prescription for [place]. 11/29/2018 1 11/28/2018 Armodafinil 150 MG Tablet 30 30 Pa Tri [id number] [place] ([id number]) 0 Private Pay [place] 11/25/2018 1 11/25/2018 Hydrocodone-Acetamin 5-325 MG 10 3 Da Barbi [id number] [place] ([id number]) 0 16.67 MME Comm Ins [place] Current Facility-Administered Medications Medication Dose Route Frequency Provider Last Rate Last Dose - diphenhydrAMINE 50 mg injection (BENADRYL) 50 mg INTRAVENOUS q 6 H PRN Geovanni (Res) [place] 50 mg at 01/05/19 0012 - oxyCODONE IR 10 mg tab(s) (ROXICODONE) 10 mg ORAL q 3 H PRN Steven A Moran 10 mg at 01/03/19 1317 - oxyCODONE IR 15 mg tab(s) (ROXICODONE) 15 mg ORAL q 3 H PRN Steven A Moran 15 mg at 01/03/19 1925 - acetaminophen 975 mg tab(s) (TYLENOL) 975 mg ORAL q 6 H PRN Steven A Moran 975 mg at 01/04/192327 - cyclobenzaprine 5 mg tab(s) (FLEXERIL) 5 mg ORAL TID PRN Steven A Moran 5 mg at 01/04/192327 - pill splitter (patient-specific) 1 Each Miscell. (Med.Supl.;Non-Drugs) PRN Steven A Moran - senna-docusate 8.6-50 mg 2 tablet (SENNA-S) 2 tablet ORAL BID Steven A Moran 2 tablet at 01/04/19 0852 - enoxaparin 40 mg injection (LOVENOX) 40 mg SUBCUTANEOUS q 24 HR Steven A Moran 40 mg at 01/04/19 0852 - HYDROmorphone 1-1.5 mg injection (DILAUDID) 1-1.5 mg INTRAVENOUS q 3 H PRN Stveen A Moran 1 mg at 01/03/192155 - therapeutic multivitamin with iron (THERAGRAN-M) 1 tablet ORAL DAILY Steven A Moran 1 tablet at 01/04/19 0852 - sodium chloride 0.65 % 2 [place] (AYR, OCEAN) 2 [place] EACH NOSTRIL PRN Steven A Moran - polyethylene glycol 3350 17 g packet (MIRALAX, GLYCOLAX) 17 g ORAL DAILY PRN Steven A Moran 17 g at 01/04/19 0852 - bisacodyl 10 mg suppository (DULCOLAX) 10 mg RECTAL DAILY PRN Steven A Moran - ondansetron 4 mg tab(s) (ZOFRAN) 4 mg ORAL q 6 H PRN Steven Jackson Moran Or - ondansetron (PF) 4 mg injection (ZOFRAN) 4 mg INTRAVENOUS q 6 H PRN Steven Jackson Moran 4 mg at 01/04/19 1143 - famotidine 20 mg tab(s) (PEPCID) 20 mg ORAL BID Steven A Moran 20 mg at 01/04/19 0852 Medications Prior to Admission: omeprazole (PRILOSEC) 20 mg capsule Take 20 mg by mouth once daily. Disp: Rfl: armodafinil (NUVIGIL) 150 mg tab Take 75 mg by mouth once daily. For shift work disorder Disp: Rfl: Social History Socioeconomic History Marital status: Spouse name: Not on file Number of children: Not on file Years of education: Not on file Highest education level: Not on file Social Needs Financial resource strain: Not on file Food insecurity - worry: Not on file Food insecurity - inability: Not on file Transportation needs - medical: Not on file Transportation needs - non-medical: Not on file Occupational History Not on file Tobacco Use Smoking status: Never Smoker Smokeless tobacco: Never Used Substance and Sexual Activity Alcohol use: No Drug use: No Sexual activity: Not on file Other Topics Concerns: Not on file Social History Narrative Not on file No family history on file. PAST SURGICAL HISTORY Procedure Laterality Date - PAST SURGICAL HISTORY OF left knee ROS: All of the following reviewed and negative except as noted below: GENERAL: no fever, chills, sweats, weight gain of 20-30 lbs, also associated fatigue, generalized weakness HEENT: no headache, vision changes, eye discomfort, hearing change, ear discomfort, sinus pain, nasal discharge or congestion, oral lesions, soreness, dental problem NECK: no adenopathy, discomfort, change in ROM CHEST: no shortness of breath, dyspnea on exertion, wheezing, cough, sputum production or chest pain HEART: no chest pain, palpitations, syncope ABDOMEN: no nausea, vomiting, constipation, diarrhea, abdominal pain : no dysuria, urgency, frequency, history of stones, incontinence NEURO: no confusion or alteration in consciousness, slurred speech, seizure, focal weakness EXTREMITIES: no new pain, but diffuse edema, see also history of present illness HEME: no new adenopathy, bruises, petechiae PSYCH: no depression, anxiety, agitation PHYSICAL EXAMINATION: see below for new or abnormal findings BP 153/72 Pulse 98 Temp 36.9 ?C (98.4 ?F) (Oral) Resp 17 Ht 172.7 cm (5' 8) Wt 109.3 kg (240 lb 15.4 oz) SpO2 99% BMI 36.64 kg/m? BMI 36.64 kg/(m2) Date 12/29/18699 - 12/30/1859 Shift 0434-6776 9060-5599 7507-8054 24 Hour Total INTAKE PO 360 360 IV 34.6 34.6 Shift Total 394.6 394.6 OUTPUT Urine 325 325 Shift Total 325 325 Weight (kg) 109.6 109.6 109.6 109.6 Date 12/28/181499 - 12/29/1865812/29/18699 - 12/30/18 0659 Shift 4537-5772 8121-5517 24 Hour Total 4320-9700 6439-0798 6653-4525 24 Hour Total INTAKE PO 062 137 6356 360 360 PO 106 305 4537 360 360 IV 217 217 34.6 34.6 Heparin IV 217 217 34.6 34.6 Shift Total 079 602 6556 394.6 394.6 OUTPUT Urine 9554 802 6442 325 325 Void (ml) 9021 960 4698 325 325 Shift Total 2905 235 5314 325 325 Weight (kg) 109.2 109.6 109.6 109.6 109.6 109.6 109.6 GENERAL: well nourished and developed; no acute distress; alert and oriented x 3; intact judgement and insight HEENT: no evidence of trauma; cranial nerves intact; eyes clear EOMI; no hearing deficits apparent; nasal passages unremarkable; throat and mucous membranes clear NECK: supple without lymphadenopathy; no JVD; no thyromegaly CHEST: clear bilaterally to auscultation; normal chest movement; no rales or rhonchi HEART: regular rate and rhythm, normal S1 and S2, no murmurs, clicks, rubs, or gallops ABDOMEN: soft; nondistended; bowel sounds present; no hepatomegaly; no splenomegaly; no tenderness EXTREMITIES: no evidence of clubbing; no cyanosis; no deformity; no joint effusion; his left arm is extensively wrapped, fingers appeared to be unremarkable.able to move fingers NEURO: cranial nerves intact; no focal deficits; no confusion; no tremor; sensorium normal SKIN: no rash; no skin breakdown; no decubitus lesions HEME: no bruising; no adenopathy PSYCH: no evidence of depression; no anxiety; no agitation; no apparent hallucinations PAIN PSYCHIATRIC EXAM: GENERAL: alert, oriented to person, place, time JUDGMENT AND INSIGHT: intact APPEARANCE: neatly groomed DEMEANOR: coooperative, not hostile, mistrustful, preoccupied, or demanding ACTIVITY: normal, not hyperactive or hypoactive, no tremors, tics EYE CONTACT: normal SPEECH: normal, rate, volume, articulation, coherence, spontaneity MOOD: normal, without overt sadness, grief, anxiety, appropriate to situation IDEATION: normal and without suicidal or homicidal ideation MEMORY: intact ABNORMAL/NEW FINDINGS: NONE RADIOLOGY/DIAGNOSTICS: LABORATORY: CBC: No results for input(s): WBC, RBC, HB, HCT, PLT, MCV, MCH, MPV, RDW in the last 24 hours. CMP: Recent Labs 01/04/19 0548 NA 133* K 4.4 CHLOR 100 CO2 29 BUN 12 CREAT 0.72 GLUC 96 CA 8.6 ANION 8 Heme: No results for input(s): RETICP, ABSRETIC, LD, FRANCK, FE, TIBC, TRANSFERSAT in the last 24 hours. ASSESSMENT ACTIVE PROBLEM LIST Other and Unspecified Hyperlipidemia Essential hypertension, benign Degeneration of Intervertebral Disc, Site Unspecified Lumbago Tendonitis of Ankle Dilcia (Obstructive Sleep Apnea) Rhinitis Obesity, Class I, Bmi 30-34.9 Injury of Radial Artery At Forearm Level, Left, Initial Encounter Limb Ischemia Obesity, Class II, Bmi 35-39.9 PLAN: Left arm pain, status post repair of ruptured left biceps, status post repair of laceration at bifurcation of left radial and left ulnar artery, status post compartment syndrome?status post fasciotomy Status post irrigation and debridement of left forearm fasciotomy with application of wound VAC 12/29 [employer] opiate naive Last Oxycodone 15mg dose was 01/03 @1924 Last Dilaudid 1mg dose was 01/03 @2155 D/C Dilaudid IV D/C Oxycodone Change APAP 975mg q6h prn mild/moderate/severe pain Oxycodone 10mg #50 prescription was placed in chart on 01/02. Will destroy this original rx since pt is no longer requiring opiates Disposition-home JENNA SINCLAIR, PHARMACIST 7:10 AM Will change Flexeril to Valium, as Flexeril is given him no relief from muscle spasms. We'll add Valium 5 mg every 6 hours as needed Pt seen and examined independently. Discussed with the Pain Service, and agree with above note as amended in blue Timothy Dias MD [facility] PROGRESS HNO ID: [id number] Author: Mitchell Winter Service: Orthopaedic Surgery Author Type: Physician Type: Progress Notes Filed: 01/05/2019 12:54 PM Note Text: ORTHOPAEDIC SURGERY DAILY PROGRESS NOTE Patient Name: Irene Nieto Date of Evaluation: January 05, 2019 Admission Date: 12/24/2018 Time of Evaluation: 6:06 AM ORTHO STAFF: Patient seen and examined. Agree with resident assessment and plan noted below. Will need vac removed and adaptic+dry dressing applied. Thermoplast splint is in place. Plan of Care reviewed with nursing staff. Mitchell Winter MD ASSESSMENT: 53 year old male POD #?11 left arm radial and ulnar artery repair, L forearm volar fasciotomy, POD # 6 irrigation and debridement of left arm fasciotomy with application of wound vac, POD # 3 repeat irrigation and debridement, wound closure, application wound vac PLAN: -Pain control - pain management consult -Weight Bearing Status: Non-Weight Bearing LUE -DVT ppx: Continue lovenox -Wound vac LUE: discontinue today prior to discharge home -Thermoplast splint LUE -Discharge home likely today INTERVAL HPI: Patient monitored, no new events overnight. Well Controlled pain. Some spasms in LUE. Denies nausea/vomitting. No F/C. No CP/SOB. Patient otherwise well this AM. OBJECTIVE: BP 150/70 Pulse 94 Temp 36.7 ?C (98.1 ?F) (Temporal Artery) Resp 17 Ht 172.7 cm (5' 8) Wt 109.3 kg (240 lb 15.4 oz) SpO2 98% BMI 36.64 kg/m? Intake/Output Summary (Last 24 hours) No intake/output data recorded. Exam: General: NAD, AAOx3 Extremities: Left Upper Extremity: Wound vac intact with good seal. Minimal sensation to all fingertips Motor intact with minimal motion all fingers, improving Hand warm with brisk capillary refill to all digits Thermoplast splint intact Labs: WBC (thou/cmm) Date Value 01/01/2019 10.66 (H) RBC (mil/cmm) Date Value 01/01/2019 3.07 (L) HGB (g/dL) Date Value 01/01/2019 8.1 (L) Hematocrit (%) Date Value 01/01/2019 25.8 (L) MCV (fl) Date Value 01/01/2019 84.0 MCH (pg) Date Value 01/01/2019 26.4 MCHC (%) Date Value 01/01/2019 31.4 (L) Platelet Count (thou/cmm) Date Value 01/01/2019 297 MPV (fl) Date Value 01/01/2019 9.9 Glucose (mg/dL) Date Value 01/04/2019 96 BUN (mg/dL) Date Value 01/04/2019 12 Creatinine (mg/dL) Date Value 01/04/2019 0.72 Sodium (mEq/L) Date Value 01/04/2019 133 (L) Potassium (mEq/L) Date Value 01/04/2019 4.4 Chloride (mEq/L) Date Value 01/04/2019 100 CO2 (mEq/L) Date Value 01/04/2019 29 Calcium (mg/dL) Date Value 01/04/2019 8.6 Sean Crawford MD January 05, 2019 [facility] THERAPY NTon 01-05-2019 THERAPY NT HNO ID: [id number] Author: Shayy CharlesOtr/Polly Jones Service: Occupational Therapy Author Type: Occupational Therapist Type: Therapy (PT/OT/Speech/Resp) Filed: 01/05/2019 9:02 AM Note Text: Occupational Therapy Treatment SERVICE DATE: 01/05/2019 SERVICE TIME: 0833 to 0842 ROOM: [place] [address] Recommended Discharge Disposition: Home Recommended Discharge Disposition Comments: Recommend home with family support and follow up with outpatient OT when healed/cleared for participation for splinting needs/return to funcitonal use of LUE in ADL. Anticipated Discharge Needs: Physical Assist at Home Physical Assist at Home for: Ambulation;Cleaning;Laun dry;Shopping;Transportat ion OT Recommendations to Nursing: To Bathroom for ADL?s /and or Toileting;OOB for meals;Transfer to Chair;With assist of 1 person OT 6 Clicks Score: 16 Precautions/Activity Restrictions: Weight Bearing Restrictions;Lines/Tubes /Drains;Brace Precaution/Activity Restriction Comments: wound vac LUE; LUE splint Extremity With Weight Bearing Restricted: Left Upper Extremity Left Upper Extremity Weight Bearing Status: NWB ASSESSMENT: Patient progressing towards goals as expected, but has not met any goals this date. Performed splint check and provided patient with education about splint wearing schedule, checking for pressure areas, and how to properly don/doff splint. Inspected patient's arm and did no observe any redness/irritation areas on arm. Patient reports his hand is still numb, but he has been trying to stimulate sensation with different textures. Patient would benefit from follow up treatment to ensure no new pressure areas are present and to facilitate sensation stimulation. Patient educated on how to check for pressure areas and to contact nurse if splint causes irritation. Patient Disposition at Start of Session: Supine in Bed;Call Santos in Reach Patient Disposition at End of Session: Supine in Bed;Call Santos in Reach Tolerated Full Session Occupational Therapy Problem List: Education Deficit;Pain;Edema;Safet y Deficits;Impaired Self Care;Decreased Activity Tolerance;Decreased Range Of Motion;Decreased Strength;Functional Mobility Impairment Patient /Caregiver Goals: Care For Self Goals for Plan of Care: Able to perform HEP with: Minimal Assistance(L hand A/AROM (within limits of sx precautions)) Feeding with: Modified Independent Grooming with: Modified Independent Upper Body Bathing with: Minimal Assistance Upper Body Dressing with: Stand By Assistance Lower Body Bathing with: Minimal Assistance Lower Body Dressing with: Stand By Assistance Toilet Hygiene with: Modified Independent Chair Transfer with: Modified Independent Toilet Transfer with: Modified Independent Tolerate (minutes of functional activity): 45 Functional Activity with: Stand By Assistance Splint Management with: Minimal Assistance Splint Goals: Patient will demonstrate independent, safe, and accurate don/doff splint.;Patient will state/verbalize accurate understanding of splint wearing schedule, precautions and care. Additional Goal 1: Patient will complete functional mobility for ADL without assistive device at modified independent level Additional Goal 2: Pt will demonstrate 1-2 sensory stim/desensitization techniques to L hand/UE Demonstrate Competence With Education with: Modified Independent(for ADL safety/compensatory techniques, ) Progress Toward Goals: Progressing as expected Rehab Potential: Excellent PLAN: Treatment Frequency (times per week): 5(3-5 times per week; include splint checks) Current admission Treatment Interventions: Education;Self Care / Home Management;Functional Mobility Training;Pain Management;Edema Management;Orthotic Management and Training Plan of Care developed with: Patient TREATMENT INTERVENTIONS: Therapy Diagnosis: Reduced mobility-other;Decreased activities of daily living (ADL);Muscle Weakness (generalized)( decreased positioning of LUE/post op/splinting of UE) Interventions Provided: Check Orthotic/Prosthetic (62741) Check Orthotic/Prosthetic (94126) Treatment Minutes: 9 $ Check Orthotic/Prosthetic (29137) Billed Units: 1 unit Skilled Intervention(s): Reviewed the fit of the device and noted no new pressure areas or areas of irritation. Patient reports he has not noticed any red areas or edges of the splint irritating his skin. Per patient report, his RN provided padding to the proximal interior edge due to some irritation, however none noted during splint check. Educated patient that if he notices a red area lasting longer than 20 minutes to alert nurse, so OT can adjust splint to prevent further breakdown. Educated and had patient demonstrate how to don/doff splint correctly. Reviewed with patient the splint wearing schedule, which should only be taken off for bathing/wound care. Educated patient in skin protection strategies and the importance of checking for pressure areas. Patient reported his hand is numb, but he can feel the splint resting on it. Inspected hand and noted no pressure areas to be present this date. Patient reported applying sensory stimulation techniques to L hand. Educated patient on purpose of self-stim. Will continue to monitor splint. Total Timed Code Treatment Minutes: 9 Total Treatment Time (minutes): 9 SUBJECTIVE: Current Hospital Course: 53 year old male POD # 11 left arm radial and ulnar artery repair, L forearm volar fasciotomy, POD # 6 irrigation and debridement of left arm fasciotomy with application of wound vac, POD # 3 repeat irrigation and debridement, wound closure, application wound vac. Chart reviewed and no significant medical updates relevant to therapy were noted since initial evaluation. Reason for Occupational Therapy Consult: LUE long arm splint; change in functional status Relevant Past Medical History: lumbago, DILCIA Patient Report: Patient supine in bed upon entry of therapy. Patient agreeable to therapy. I can really only get sleep in the morning. I struggle to sleep at night and get comfortable. 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 Please see discipline specific clinical documentation flowsheet for complete details for this therapy evaluation/treatment. SIGNATURE: EBEN Thompson/Jamie PATIENT NAME: Irene Nieto DATE: January 05, 2019 TIME: 8:48 AM Normal [facility] Basic Panelon 01-04-2019 Creatinine [Mass/Vol] 0.72 mg/dL Normal 0.67-1.17 [facility] Comment on above: Performed By: #### G FR #### [facility] [address] [place], [place] [address] Anion gap [Moles/Vol] 8 mmol/L Normal 8-16 [facility] Comment on above: Performed By: #### G FR #### [facility] [address] [place], [place] [address] Calcium [Mass/Vol] 8.6 mg/dL Normal 8.5-10.1 [facility] Comment on above: Performed By: #### G FR #### [facility] [address] [place], [place] [address] CO2 [Moles/Vol] 29 mmol/L Normal 21-32 [facility] Comment on above: Performed By: #### G FR #### [address] [address] Glucose [Mass/Vol] 96 mg/dL Normal 70-99 [facility] Comment on above: Performed By: #### G FR #### [address], [place] [address] Urea nitrogen [Mass/Vol] 12 mg/dL Normal 7-18 [facility] Comment on above: Performed By: #### G FR #### [facility] [address] [place], [place] [address] Chloride [Moles/Vol] 100 mmol/L Normal 98-107 [facility] Comment on above: Performed By: #### G FR #### [facility] [address] [place], [place] [address] Potassium [Moles/Vol] 4.4 mmol/L Normal 3.5-5.1 [facility] Comment on above: Performed By: #### G FR #### [facility] [address] [place], [place] [address] Sodium [Moles/Vol] 133 mmol/L Low 136-145 [facility] Comment on above: Performed By: #### G FR #### [facility] [address] [place], [place] [address] PROGRESSon 01-04-2019 PROGRESS HNO ID: [id number] Author: Dolly Clark Service: Pain Management Author Type: Physician Type: Progress Notes Filed: 01/04/2019 7:49 PM Note Text: PAIN CONSULTATION: Left arm pain;left arm radial and ulnar artery injury s/p POD5 repair, left forearm compartment syndrome s/p POD5 L forearm volar fasciotomy IRENE Fidel NIETO 53 year old male with LUE pain secondary to ischemia after radial and ulnar artery injury. He is s/pPOD 10 days repair; left forearm compartment syndrome s/p POD 5 forearm volar fasciotomy. He sates his pain is improved but persistent at 6-01/14. He describes some myoclonus last night but now resolved. 24 HOUR COMFORT MEDICATIONS: Acetaminophen 975 mg x 2 doses Hydromorphone 1 mg IV ? 1 Oxycodone none ? GI regimen Senna?S twice a day Pain Description: Constant but better since unwrapped 12/15 Subjective HPI: 53-year-old male, transferred from [facility] on 12/25/2018 secondary to avascular injury to his left upper extremity after a single incision distal biceps repair earlier that day. Approximately one week prior to his initial presentation, while constructing a pleural, the patient felt a sudden pop in his left arm, resulting in a rupture of his left distal biceps while lifting a heavy box. On the day of presentation, he underwent a left biceps repair with arthritis tendon button and screw. However, following that procedure he developed paresthesias in his left arm on the dorsal and volar aspects down to his fingers, and was unable to flex, extend his elbow, wrists, fingers, and there was concern that there was a brachial artery injury as a result of the surgery itself. He was taken emergently to the operating room from the emergency department here, where he underwent repair of the left radial artery, reimplantation of the left ulnar artery, left upper extremity fasciotomy and carpal tunnel release as well as a fasciotomy of the left forearm. During that surgery was identified that he had a laceration at the bifurcation of the ulnar and brachial arteries with compartment syndrome. His [place] prescription history is unremarkable except for one prescription for Nuvigil, and one prescription for [place]. 11/29/2018 1 11/28/2018 Armodafinil 150 MG Tablet 30 30 Pa Tri [id number] [place] ([id number]) 0 Private [facility] 11/25/2018 1 11/25/2018 Hydrocodone-Acetamin 5-325 MG 10 3 Da Barbi [id number] [place] ([id number]) 0 16.67 [facility] Current Facility-Administered Medications Medication Dose Route Frequency Provider Last Rate Last Dose - oxyCODONE IR 10 mg tab(s) (ROXICODONE) 10 mg ORAL q 3 H PRN Steven Jackson Moran 10 mg at 01/03/19 1317 - oxyCODONE IR 15 mg tab(s) (ROXICODONE) 15 mg ORAL q 3 H PRN Steven Jackson Moran 15 mg at 01/03/19 1925 - acetaminophen 975 mg tab(s) (TYLENOL) 975 mg ORAL q 6 H PRN Steven Jackson Moran 975 mg at 01/04/19 1143 - cyclobenzaprine 5 mg tab(s) (FLEXERIL) 5 mg ORAL TID PRN Steven Jackson Moran 5 mg at 01/03/19 2156 - pill splitter (patient-specific) 1 Each Miscell. (Med.Supl.;Non-Drugs) PRN Steven Moran - senna-docusate 8.6-50 mg 2 tablet (SENNA-S) 2 tablet ORAL BID Steven A Moran 2 tablet at 01/04/19 0852 - enoxaparin 40 mg injection (LOVENOX) 40 mg SUBCUTANEOUS q 24 HR Steven Renetta Moran 40 mg at 01/04/19 0852 - HYDROmorphone 1-1.5 mg injection (DILAUDID) 1-1.5 mg INTRAVENOUS q 3 H PRN Steven A Moran 1 mg at 01/03/19 2156 - therapeutic multivitamin with iron (THERAGRAN-M) 1 tablet ORAL DAILY Steven Renetta Moran 1 tablet at 01/04/19 0852 - sodium chloride 0.65 % 2 [place] (AYR, OCEAN) 2 [place] EACH NOSTRIL PRN Steven Renetta Moran - polyethylene glycol 3350 17 g packet (MIRALAX, GLYCOLAX) 17 g ORAL DAILY PRN Steven A Moran 17 g at 01/04/19 0852 - bisacodyl 10 mg suppository (DULCOLAX) 10 mg RECTAL DAILY PRN Steven A Moran - ondansetron 4 mg tab(s) (ZOFRAN) 4 mg ORAL q 6 H PRN Steven A Moran Or - ondansetron (PF) 4 mg injection (ZOFRAN) 4 mg INTRAVENOUS q 6 H PRN Steven Renetta Moran 4 mg at 01/04/19 1143 - famotidine 20 mg tab(s) (PEPCID) 20 mg ORAL BID Steven Renetta Moran 20 mg at 01/04/19 0852 Medications Prior to Admission: omeprazole (PRILOSEC) 20 mg capsule Take 20 mg by mouth once daily. Disp: Rfl: armodafinil (NUVIGIL) 150 mg tab Take 75 mg by mouth once daily. For shift work disorder Disp: Rfl: Social History Socioeconomic History Marital status: Spouse name: Not on file Number of children: Not on file Years of education: Not on file Highest education level: Not on file Social Needs Financial resource strain: Not on file Food insecurity - worry: Not on file Food insecurity - inability: Not on file Transportation needs - medical: Not on file Transportation needs - non-medical: Not on file Occupational History Not on file Tobacco Use Smoking status: Never Smoker Smokeless tobacco: Never Used Substance and Sexual Activity Alcohol use: No Drug use: No Sexual activity: Not on file Other Topics Concerns: Not on file Social History Narrative Not on file No family history on file. PAST SURGICAL HISTORY Procedure Laterality Date - PAST SURGICAL HISTORY OF left knee ROS: All of the following reviewed and negative except as noted below: GENERAL: no fever, chills, sweats, weight gain of 20-30 lbs, also associated fatigue, generalized weakness HEENT: no headache, vision changes, eye discomfort, hearing change, ear discomfort, sinus pain, nasal discharge or congestion, oral lesions, soreness, dental problem NECK: no adenopathy, discomfort, change in ROM CHEST: no shortness of breath, dyspnea on exertion, wheezing, cough, sputum production or chest pain HEART: no chest pain, palpitations, syncope ABDOMEN: no nausea, vomiting, constipation, diarrhea, abdominal pain : no dysuria, urgency, frequency, history of stones, incontinence NEURO: no confusion or alteration in consciousness, slurred speech, seizure, focal weakness EXTREMITIES: no new pain, but diffuse edema, see also history of present illness HEME: no new adenopathy, bruises, petechiae PSYCH: no depression, anxiety, agitation PHYSICAL EXAMINATION: see below for new or abnormal findings BP 143/75 Pulse 105 Temp 36.9 ?C (98.4 ?F) (Oral) Resp 18 Ht 172.7 cm (5' 8) Wt 109.3 kg (240 lb 15.4 oz) SpO2 96% BMI 36.64 kg/m? BMI 36.64 kg/(m2) Date 12/29/18699 - 12/30/1859 Shift 3086-7177 3601-2824 8377-9043 24 Hour Total INTAKE PO 360 360 IV 34.6 34.6 Shift Total 394.6 394.6 OUTPUT Urine 325 325 Shift Total 325 325 Weight (kg) 109.6 109.6 109.6 109.6 Date 12/28/181499 - 12/29/1865812/29/18699 - 12/30/1859 Shift 5135-4614 3370-8692 24 Hour Total 7179-8306 0649-7151 5958-1089 24 Hour Total INTAKE PO 232 576 7834 360 360 PO 414 685 8648 360 360 IV 217 217 34.6 34.6 Heparin IV 217 217 34.6 34.6 Shift Total 582 681 5032 394.6 394.6 OUTPUT Urine 7228 376 3865 325 325 Void (ml) 2081 563 0315 325 325 Shift Total 6144 115 2945 325 325 Weight (kg) 109.2 109.6 109.6 109.6 109.6 109.6 109.6 GENERAL: well nourished and developed; no acute distress; alert and oriented x 3; intact judgement and insight HEENT: no evidence of trauma; cranial nerves intact; eyes clear EOMI; no hearing deficits apparent; nasal passages unremarkable; throat and mucous membranes clear NECK: supple without lymphadenopathy; no JVD; no thyromegaly CHEST: clear bilaterally to auscultation; normal chest movement; no rales or rhonchi HEART: regular rate and rhythm, normal S1 and S2, no murmurs, clicks, rubs, or gallops ABDOMEN: soft; nondistended; bowel sounds present; no hepatomegaly; no splenomegaly; no tenderness EXTREMITIES: no evidence of clubbing; no cyanosis; no deformity; no joint effusion; his left arm is extensively wrapped, fingers appeared to be unremarkable.able to move fingers NEURO: cranial nerves intact; no focal deficits; no confusion; no tremor; sensorium normal SKIN: no rash; no skin breakdown; no decubitus lesions HEME: no bruising; no adenopathy PSYCH: no evidence of depression; no anxiety; no agitation; no apparent hallucinations PAIN PSYCHIATRIC EXAM: GENERAL: alert, oriented to person, place, time JUDGMENT AND INSIGHT: intact APPEARANCE: neatly groomed DEMEANOR: coooperative, not hostile, mistrustful, preoccupied, or demanding ACTIVITY: normal, not hyperactive or hypoactive, no tremors, tics EYE CONTACT: normal SPEECH: normal, rate, volume, articulation, coherence, spontaneity MOOD: normal, without overt sadness, grief, anxiety, appropriate to situation IDEATION: normal and without suicidal or homicidal ideation MEMORY: intact ABNORMAL/NEW FINDINGS: NONE RADIOLOGY/DIAGNOSTICS: LABORATORY: CBC: No results for input(s): WBC, RBC, HB, HCT, PLT, MCV, MCH, MPV, RDW in the last 24 hours. CMP: Recent Labs 01/04/19 0548 NA 133* K 4.4 CHLOR 100 CO2 29 BUN 12 CREAT 0.72 GLUC 96 CA 8.6 ANION 8 Heme: No results for input(s): RETICP, ABSRETIC, LD, FRANCK, FE, TIBC, TRANSFERSAT in the last 24 hours. ASSESSMENT ACTIVE PROBLEM LIST Other and Unspecified Hyperlipidemia Essential hypertension, benign Degeneration of Intervertebral Disc, Site Unspecified Lumbago Tendonitis of Ankle Dilcia (Obstructive Sleep Apnea) Rhinitis Obesity, Class I, Bmi 30-34.9 Injury of Radial Artery At Forearm Level, Left, Initial Encounter Limb Ischemia Obesity, Class II, Bmi 35-39.9 PLAN: Left arm pain, status post repair of ruptured left biceps, status post repair of laceration at bifurcation of left radial and left ulnar artery, status post compartment syndrome?status post fasciotomy Status post irrigation and debridement of left forearm fasciotomy with application of wound VAC 12/29 Opiate naive prior to presentation. Oxycodone 10-15 mg by mouth every 3 hours when necessary moderate or severe pain. Flexeril 5 mg by mouth 3 times a day as needed Dilaudid to 1-1.5 mg IV every 3 hours as needed for breakthrough pain Senna S 2 tabs by mouth twice a day Discharge planning to home noted. Oxycodone prescription placed in chart. Discussed with patient options for pain management in [place] if needed Dolly Clark MD [facility] PROGRESS HNO ID: [id number] Author: Todd Lugo Service: Thoracic Surgery Author Type: Resident Type: Progress Notes Filed: 01/04/2019 8:58 AM Note Text: -------- Attestation signed by Kishore Case at 01/06/2019 2:02 PM Radial pulse is present by palpation today on my examination. The hand is pink and warm and he seems to have a little more motion than I have been reported the patient having in the past. Nothing really at this point in time for vascular surgery to do other than continue observation. -------- Vascular Progress Note SERVICE DATE: 01/04/2019 Vascular AND Thoracic Surgery Service Pager: For questions or concerns Mon-Fri 6a-5p please page [phone]. After 5pm and on Weekends and Holidays, please page [phone] if in ICU or [phone] if on RNF. Subjective SUBJECTIVE: Pt feels okay, no changes since last seen. Pt still appears to have a decreased affect. Denies N/V/CP/SOB Diet: DIET REGULAR Objective OBJECTIVE: Vitals: BP 142/68 Pulse 92 Temp (Src) 97.5 (Temporal Artery) Resp 18 Ht 5' 8 (1.73m) Wt 240 lb 15.4 oz (109.3kg) SpO2 95% BMI 36.65 kg/(m2). O2 Therapy: Room Air, Liters: 0 Temp (24hrs), Av.5 ?C (97.7 ?F), Min:36.2 ?C (97.2 ?F), Max:36.7 ?C (98.1 ?F) O2 Therapy: Room Air IANDO: Date 01/03/19 07 - 01/04/19 0659 01/04/19 0700 - 01/05/19 0659 Shift 0122-2083 1505-0735 1124-8406 24 Hour Total 7688-3726 1091-8610 1104-0100 24 Hour Total INTAKE PO 600 240 840 PO 600 240 840 Shift Total 600 240 840 OUTPUT Urine 1150 1175 1300 3625 Void (ml) 1150 1175 1300 3625 Drains 0 0 Negative Pressure: Output (mL) (Negative Pressure Wound Therapy 12/30/18 0921 Arm - Forearm Left) 0 0 Tubes 0 0 Drain/Tube Output (Drain/Tube 01/02/19 1215 Assessment ) 0 0 Shift Total 1150 1175 1300 3625 Weight (kg) 109.3 109.3 109.3 109.3 109.3 109.3 109.3 109.3 MEDICATIONS Current Facility-Administered Medications Medication Dose Route Frequency - oxyCODONE IR 10 mg tab(s) (ROXICODONE) 10 mg ORAL q 3 H PRN - oxyCODONE IR 15 mg tab(s) (ROXICODONE) 15 mg ORAL q 3 H PRN - acetaminophen 975 mg tab(s) (TYLENOL) 975 mg ORAL q 6 H PRN - cyclobenzaprine 5 mg tab(s) (FLEXERIL) 5 mg ORAL TID PRN - pill splitter (patient-specific) 1 Each Miscell. (Med.Supl.;Non-Drugs) PRN - senna-docusate 8.6-50 mg 2 tablet (SENNA-S) 2 tablet ORAL BID - enoxaparin 40 mg injection (LOVENOX) 40 mg SUBCUTANEOUS q 24 HR - HYDROmorphone 1-1.5 mg injection (DILAUDID) 1-1.5 mg INTRAVENOUS q 3 H PRN - therapeutic multivitamin with iron (THERAGRAN-M) 1 tablet ORAL DAILY - sodium chloride 0.65 % 2 [place] (AYR, OCEAN) 2 [place] EACH NOSTRIL PRN - polyethylene glycol 3350 17 g packet (MIRALAX, GLYCOLAX) 17 g ORAL DAILY PRN - bisacodyl 10 mg suppository (DULCOLAX) 10 mg RECTAL DAILY PRN - ondansetron 4 mg tab(s) (ZOFRAN) 4 mg ORAL q 6 H PRN Or - ondansetron (PF) 4 mg injection (ZOFRAN) 4 mg INTRAVENOUS q 6 H PRN - famotidine 20 mg tab(s) (PEPCID) 20 mg ORAL BID Labs: Recent Labs 01/04/19 0548 01/03/19 0420 NA 133* 132* K 4.4 4.3 CHLOR 100 99 CO2 29 29 BUN 12 10 CREAT 0.72 0.70 GLUC 96 110* ANION 8 8 CA 8.6 8.5 No results for input(s): BODSITE, CTYPE, PH, PCO2, PO2, BE, HCO3, CO2CT, O2HB, COHB, MHGB, TEMP, PHTC, PCO2T, PO2T, O2AD in the last 72 hours. Exam: GENERAL: Alert, no distress, cooperative SKIN: Skin color, texture, turgor normal. No rashes or lesions. LUNGS: Unlabored breathing on O2 Therapy: Room Air on Liters: 0 sating at SpO2: 95 % CARDIAC: rate and rhythm as above, ABDOMEN: Benign, Soft, non-tender, No masses, hepatosplenomegaly and No lymphadenopathy EXTREMITIES: Abnormal findings: minimal motion of left hand. Can't make fist, sensation slowly returning. WOUND: clean, dry and intact wound vac in place Radial pulse palpable. No doppler available to doppler radial artery signal. ASSESSMENT AND PLAN: Assessment/Plan This is a 53 year old male?s/p Exploration of LUE, repair of L radial artery, re-implation of L ulnar artery, LUE fasciotomy and carpal tunnel release. ?Repeat IANDD in [place] 12/27 AM. ? - reg diet - Pain control - prn lopressor for BP control - No further vascular intervention at this time - No doppler available on 5200 a or b to doppler radial signal. Assessment and plan discussed with attending: Dr. Case. SIGNATURE: Todd Lugo MD PATIENT NAME: Irene Nieto DATE: January 04, 2019 TIME: 8:55 AM Pager: [phone] Normal [facility] PROGRESS HNO ID: [id number] Author: Mitchell Winter Service: Orthopaedic Surgery Author Type: Physician Type: Progress Notes Filed: 01/04/2019 10:34 AM Note Text: ORTHOPAEDIC SURGERY DAILY PROGRESS NOTE Patient Name: Irene Nieto Date of Evaluation: 01/04/2019 Admission Date: 12/24/2018 Time of Evaluation: 6:26 AM ORTHO STAFF: Agree with resident assessment and plan noted below, except where changes made. Mitchell Winter MD ASSESSMENT: 53 year old male POD #?10 left arm radial and ulnar artery repair, L forearm volar fasciotomy, POD # 5 irrigation and debridement of left arm fasciotomy with application of wound vac, POD2 repeat irrigation and debridement, wound closure, application wound vac PLAN: -Pain control - pain management consult -Weight Bearing Status: Non-Weight Bearing LUE -DVT ppx: Continue lovenox -Wound vac LUE: Plan to maintain today and likely discontinue tomorrow -Thermoplast splint LUE -Discharge home likely 01/05/19 INTERVAL HPI: Patient monitored, no new events overnight. Well Controlled pain. Some spasms in LUE. Denies nausea/vomitting. OBJECTIVE: BP 144/73 Pulse 94 Temp 36.5 ?C (97.7 ?F) (Temporal) Resp 15 Ht 172.7 cm (5' 8) Wt 109.3 kg (240 lb 15.4 oz) SpO2 97% BMI 36.64 kg/m? Intake/Output Summary (Last 24 hours) No intake/output data recorded. Exam: General: NAD, AAOx3 Extremities: Left Upper Extremity: Wound vac intact with good seal. Minimal sensation to all fingertips Motor intact with minimal motion all fingers, improving Hand warm with brisk capillary refill to all digits Thermoplast splint intact Labs: WBC (thou/cmm) Date Value 01/01/2019 10.66 (H) RBC (mil/cmm) Date Value 01/01/2019 3.07 (L) HGB (g/dL) Date Value 01/01/2019 8.1 (L) Hematocrit (%) Date Value 01/01/2019 25.8 (L) MCV (fl) Date Value 01/01/2019 84.0 MCH (pg) Date Value 01/01/2019 26.4 MCHC (%) Date Value 01/01/2019 31.4 (L) Platelet Count (thou/cmm) Date Value 01/01/2019 297 MPV (fl) Date Value 01/01/2019 9.9 Glucose (mg/dL) Date Value 01/04/2019 96 BUN (mg/dL) Date Value 01/04/2019 12 Creatinine (mg/dL) Date Value 01/04/2019 0.72 Sodium (mEq/L) Date Value 01/04/2019 133 (L) Potassium (mEq/L) Date Value 01/04/2019 4.4 Chloride (mEq/L) Date Value 01/04/2019 100 CO2 (mEq/L) Date Value 01/04/2019 29 Calcium (mg/dL) Date Value 01/04/2019 8.6 Steven Moran MD 01/04/2019 6:26 AM Normal [facility] THERAPY NTon 01-04-2019 THERAPY NT HNO ID: [id number] Author: Cayla CharlesOtr/Polly Temple Service: Occupational Therapy Author Type: Occupational Therapist Type: Therapy (PT/OT/Speech/Resp) Filed: 01/04/2019 12:37 PM Note Text: Occupational Therapy Treatment SERVICE DATE: 01/04/2019 SERVICE TIME: 1130 to 1145 ROOM: [id number] Recommended Discharge Disposition: Home Recommended Discharge Disposition Comments: Recommend home with family support and follow up with outpatient OT when healed/cleared for participation for splinting needs/return to funcitonal use of LUE in ADL. Anticipated Discharge Needs: Physical Assist at Home Physical Assist at Home for: Ambulation;Cleaning;Laun dry;Shopping;Transportat ion OT Recommendations to Nursing: To Bathroom for ADL?s /and or Toileting;OOB for meals;Transfer to Chair;With assist of 1 person OT 6 Clicks Score: 16 Precautions/Activity Restrictions: Weight Bearing Restrictions;Lines/Tubes /Drains;Brace Precaution/Activity Restriction Comments: wound vac LUE; LUE splint Extremity With Weight Bearing Restricted: Left Upper Extremity Left Upper Extremity Weight Bearing Status: NWB ASSESSMENT: Patient is tolerating splint well, and is receptive to continued therapy closer to where he lives. Goals are ongoing. Patient Disposition at Start of Session: OOB in Chair;Call Santos in Reach Patient Disposition at End of Session: OOB in Chair;Call Santos in Reach Tolerated Full Session Occupational Therapy Problem List: Education Deficit;Pain;Edema;Safet y Deficits;Impaired Self Care;Decreased Activity Tolerance;Decreased Range Of Motion;Decreased Strength;Functional Mobility Impairment Patient /Caregiver Goals: Care For Self Goals for Plan of Care: Able to perform HEP with: Minimal Assistance(L hand A/AROM (within limits of sx precautions)) Feeding with: Modified Independent Grooming with: Modified Independent Upper Body Bathing with: Minimal Assistance Upper Body Dressing with: Stand By Assistance Lower Body Bathing with: Minimal Assistance Lower Body Dressing with: Stand By Assistance Toilet Hygiene with: Modified Independent Chair Transfer with: Modified Independent Toilet Transfer with: Modified Independent Tolerate (minutes of functional activity): 45 Functional Activity with: Stand By Assistance Splint Management with: Minimal Assistance Splint Goals: Patient will demonstrate independent, safe, and accurate don/doff splint.;Patient will state/verbalize accurate understanding of splint wearing schedule, precautions and care. Additional Goal 1: Patient will complete functional mobility for ADL without assistive device at modified independent level Additional Goal 2: Pt will demonstrate 1-2 sensory stim/desensitization techniques to L hand/UE Demonstrate Competence With Education with: Modified Independent(for ADL safety/compensatory techniques, ) Progress Toward Goals: Progressing as expected Rehab Potential: Excellent PLAN: Treatment Frequency (times per week): 5(3-5 times per week; include splint checks) Current admission Treatment Interventions: Education;Self Care / Home Management;Functional Mobility Training;Pain Management;Edema Management;Orthotic Management and Training Plan of Care developed with: Patient TREATMENT INTERVENTIONS: Therapy Diagnosis: Reduced mobility-other;Decreased activities of daily living (ADL);Muscle Weakness (generalized)( decreased positioning of LUE/post op/splinting of UE) Interventions Provided: Check Orthotic/Prosthetic (42227);Therapeutic Exercise (29021) Therapeutic Exercise (97457) Treatment Minutes: 10 1 unit Skilled Intervention(s): Education in sensory stimulation techniques to L hand. Educated on purpose of sensory stim to increase ability to utilize and manage L UE/hand. Provided education in self-sim utilizing a paper towel, first to R hand, then comparing to L hand. Patient given time to practice and ask questions. Educated also, on desensitization techniques as pt reported some increased pain/irritation to L hand/wrist when manipulated. Patient educated onAAROM techniques to L digits to maintain ROM and function. All questions addressed/answered. Will continue. Check Orthotic/Prosthetic (38230) Treatment Minutes: 5 $ Check Orthotic/Prosthetic (33006) Billed Units: 0 units Skilled Intervention(s): Reviewed the fit of the device and noted no skin irritation or breakdown. Per patient report, his RN provided padding to the proximal interior edge due to some irritation, however none noted during splint check. Straps reapplied and show a good fit. Will continue to monitor. Total Timed Code Treatment Minutes: 15 Total Treatment Time (minutes): 15 SUBJECTIVE: Current Hospital Course: Chart reviewed and no significant medical updates relevant to therapy were noted Reason for Occupational Therapy Consult: LUE long arm splint; change in functional status Relevant Past Medical History: lumbago, DILCIA Patient Report: Pt up in chair, reports the splint feels diamond powder technician than the cast that was on previously, but reports it still feels supportive. Patient agreeable to OT session. 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 OBJECTIVE: Cognition/Communication Deficits Orientation Deficits: (oriented x 4) Responsiveness: Alert Follows Commands: 3-step Commands CURRENT FUNCTIONAL STATUS: Current Activities of Daily Living Assist Level Feeding Set Up Grooming Minimal Assistance Bathing Upper Body Moderate Assistance Bathing Lower Body Moderate Assistance Dressing Upper Body Moderate Assistance Dressing Lower Body Moderate Assistance Toileting Contact Guard Assistance Functional Mobility Assist Level Rolling Supine to Sit Sit to Supine Scooting Sit to Stand Stand By Assistance Stand to Sit Stand By Assistance Bed to Chair Stand By Assistance Stand Pivot Toilet/Commode Contact Guard Assistance Functional Mobility Contact Guard Assistance(/SBA) (no device) Hand Dominance: Right Range of Motion: Upper Extremity Comments R Upper Extremity ROM Comments: WFL L Upper Extremity ROM Comments: Shoulder AAROM 0-105 shoulder flexion; Elbow/forearm/wrist NE due to s/p surgery/wounds; patient is able to move left index finger 1/4-1/2 range, 3rd digit and thumb 1/4 range, and trace finger flexion beginning left 4th/5th digits.Note active wrist extension during splinting tasks. Strength: Left UE Measurement Strength Limitation Comments: RUE grossly 4/5 to 4+/5; LUE NT Left Shoulder Elevation Strength: against gravity WFL, formal strength assessment not completed Left Elbow Flexion Strength: minimal against gravity only, and within limits of pain Left Elbow Extension Strength: minimal against gravity and within limits of pain Left Wrist Strength: n/t Left Gis Programmer Strength: digit extension apparent in #s 1-4, limited #5. Digit flexion is poor overall, able to slightly flex index Coordination Deficits: In hand manipulation;Finger opposition;Finger to nose(impaired/absent LUE; WFL RUE) Finger to Nose Impairment: Left Finger Opposition Impairment: Left Hand Manipulation Impairment: Left Please see discipline specific clinical documentation flowsheet for complete details for this therapy evaluation/treatment. SIGNATURE: EBEN Nunez/Jamie PATIENT NAME: Irene Nieto DATE: January 04, 2019 TIME: 12:31 PM Normal [facility] Basic Panelon 01-03-2019 Creatinine [Mass/Vol] 0.70 mg/dL Normal 0.67-1.17 [facility] Comment on above: Performed By: #### G FR #### [place] [id number] Anion gap [Moles/Vol] 8 mmol/L Normal 8-16 [facility] Comment on above: Performed By: #### G FR #### [facility] [address] [place], [place] [address] Calcium [Mass/Vol] 8.5 mg/dL Normal 8.5-10.1 [facility] Comment on above: Performed By: #### G FR #### [facility] [address] [place], [place] [address] CO2 [Moles/Vol] 29 mmol/L Normal 21-32 [facility] Comment on above: Performed By: #### G FR #### [facility] [address] [place], [place] [address] Glucose [Mass/Vol] 110 mg/dL High 70-99 [facility] Comment on above: Performed By: #### G FR #### [facility] [address] [place], [place] [address] Urea nitrogen [Mass/Vol] 10 mg/dL Normal 7-18 [facility] Comment on above: Performed By: #### G FR #### [facility] [address] [place], [place] [address] Chloride [Moles/Vol] 99 mmol/L Normal 98-107 [facility] Comment on above: Performed By: #### G FR #### [facility] [address] [place], [place] [address] Potassium [Moles/Vol] 4.3 mmol/L Normal 3.5-5.1 [facility] Comment on above: Performed By: #### G FR #### [facility] [address] [place], [place] [address] Sodium [Moles/Vol] 132 mmol/L Low 136-145 [facility] Comment on above: Performed By: #### G FR #### [facility] [address] [place], [place] [address] PROGRESSon 01-03-2019 PROGRESS HNO ID: [id number] Author: Dolly Clark Service: Hospice Author Type: Physician Type: Progress Notes Filed: 01/03/2019 3:01 PM Note Text: PAIN CONSULTATION: Left arm pain;left arm radial and ulnar artery injury s/p POD5 repair, left forearm compartment syndrome s/p POD5 L forearm volar fasciotomy IRENE NIETO 53 year old male with LUE pain secondary to ischemia after radial and ulnar artery injury. He is s/pPOD 9 days repair; left forearm compartment syndrome s/p POD 4 forearm volar fasciotomy. He sates his pain is improved but persistent at 6-7/10. He describes some myoclonus last night but now resolved. 24 HOUR COMFORT MEDICATIONS: Acetaminophen 975 mg x none Gabapentin discontinued due to side effects; Hydromorphone 1 mg IV ? 4; 1.5 mg times 3 doses Oxycodone 10mg x four; 15 mg times 2 ? GI regimen Senna?S twice a day Pain Description: Dilaudid by mouth discontinued yesterday due to concerns of hallucinations. Oxycodone added. Patient awoke this morning with severe stabbing pain left forearm described as a knife in his arm. Patient's at the bedside. Patient appears reluctant to ask for pain medications. Surgical plans pending 12/30 irrigation and debridement of left forearm fasciotomy with application of wound VAC per Ortho Subjective HPI: 53-year-old male, transferred from [facility] on 12/25/2018 secondary to avascular injury to his left upper extremity after a single incision distal biceps repair earlier that day. Approximately one week prior to his initial presentation, while constructing a pleural, the patient felt a sudden pop in his left arm, resulting in a rupture of his left distal biceps while lifting a heavy box. On the day of presentation, he underwent a left biceps repair with arthritis tendon button and screw. However, following that procedure he developed paresthesias in his left arm on the dorsal and volar aspects down to his fingers, and was unable to flex, extend his elbow, wrists, fingers, and there was concern that there was a brachial artery injury as a result of the surgery itself. He was taken emergently to the operating room from the emergency department here, where he underwent repair of the left radial artery, reimplantation of the left ulnar artery, left upper extremity fasciotomy and carpal tunnel release as well as a fasciotomy of the left forearm. During that surgery was identified that he had a laceration at the bifurcation of the ulnar and brachial arteries with compartment syndrome. His [place] prescription history is unremarkable except for one prescription for Nuvigil, and one prescription for [place]. 11/29/2018 1 11/28/2018 Armodafinil 150 MG Tablet 30 30 Pa Tri [id number] [place] ([id number]) 0 Private Pay [place] 11/25/2018 1 11/25/2018 Hydrocodone-Acetamin 5-325 MG 10 3 Da Barbi [id number] [place] ([id number]) 0 16.67 MME Comm Ins [place] Current Facility-Administered Medications Medication Dose Route Frequency Provider Last Rate Last Dose - oxyCODONE IR 10 mg tab(s) (ROXICODONE) 10 mg ORAL q 3 H PRN Steven A Moran 10 mg at 01/03/19 1317 - oxyCODONE IR 15 mg tab(s) (ROXICODONE) 15 mg ORAL q 3 H PRN Steven A Moran 15 mg at 01/03/19 041 - acetaminophen 975 mg tab(s) (TYLENOL) 975 mg ORAL q 6 H PRN Steven A Moran 975 mg at 01/03/19 041 - cyclobenzaprine 5 mg tab(s) (FLEXERIL) 5 mg ORAL TID PRN Steven A Moran 5 mg at 01/03/19 041 - pill splitter (patient-specific) 1 Each Miscell. (Med.Supl.;Non-Drugs) PRN Steven Renetta Moran - senna-docusate 8.6-50 mg 2 tablet (SENNA-S) 2 tablet ORAL BID Steven A Moran 2 tablet at 01/03/19 0859 - enoxaparin 40 mg injection (LOVENOX) 40 mg SUBCUTANEOUS q 24 HR Steven A Moran 40 mg at 01/03/19 0859 - HYDROmorphone 1-1.5 mg injection (DILAUDID) 1-1.5 mg INTRAVENOUS q 3 H PRN Steven A Moran 1 mg at 01/02/194 - therapeutic multivitamin with iron (THERAGRAN-M) 1 tablet ORAL DAILY Steven A Moran 1 tablet at 01/03/19 0859 - sodium chloride 0.65 % 2 [place] (AYR, OCEAN) 2 [place] EACH NOSTRIL PRN Steven A Moran - polyethylene glycol 3350 17 g packet (MIRALAX, GLYCOLAX) 17 g ORAL DAILY PRN Steven A Moran 17 g at 01/03/19 0859 - bisacodyl 10 mg suppository (DULCOLAX) 10 mg RECTAL DAILY PRN Stevensharri Romee - ondansetron 4 mg tab(s) (ZOFRAN) 4 mg ORAL q 6 H PRN Steven A Moran Or - ondansetron (PF) 4 mg injection (ZOFRAN) 4 mg INTRAVENOUS q 6 H PRN Steven Renetta Moran 4 mg at 01/01/19 0824 - famotidine 20 mg tab(s) (PEPCID) 20 mg ORAL BID Steven A Moran 20 mg at 01/03/19 0859 Medications Prior to Admission: omeprazole (PRILOSEC) 20 mg capsule Take 20 mg by mouth once daily. Disp: Rfl: armodafinil (NUVIGIL) 150 mg tab Take 75 mg by mouth once daily. For shift work disorder Disp: Rfl: Social History Socioeconomic History Marital status: Spouse name: Not on file Number of children: Not on file Years of education: Not on file Highest education level: Not on file Social Needs Financial resource strain: Not on file Food insecurity - worry: Not on file Food insecurity - inability: Not on file Transportation needs - medical: Not on file Transportation needs - non-medical: Not on file Occupational History Not on file Tobacco Use Smoking status: Never Smoker Smokeless tobacco: Never Used Substance and Sexual Activity Alcohol use: No Drug use: No Sexual activity: Not on file Other Topics Concerns: Not on file Social History Narrative Not on file No family history on file. PAST SURGICAL HISTORY Procedure Laterality Date - PAST SURGICAL HISTORY OF left knee ROS: All of the following reviewed and negative except as noted below: GENERAL: no fever, chills, sweats, weight gain of 20-30 lbs, also associated fatigue, generalized weakness HEENT: no headache, vision changes, eye discomfort, hearing change, ear discomfort, sinus pain, nasal discharge or congestion, oral lesions, soreness, dental problem NECK: no adenopathy, discomfort, change in ROM CHEST: no shortness of breath, dyspnea on exertion, wheezing, cough, sputum production or chest pain HEART: no chest pain, palpitations, syncope ABDOMEN: no nausea, vomiting, constipation, diarrhea, abdominal pain : no dysuria, urgency, frequency, history of stones, incontinence NEURO: no confusion or alteration in consciousness, slurred speech, seizure, focal weakness EXTREMITIES: no new pain, but diffuse edema, see also history of present illness HEME: no new adenopathy, bruises, petechiae PSYCH: no depression, anxiety, agitation PHYSICAL EXAMINATION: see below for new or abnormal findings BP 138/76 Pulse 104 Temp 36.2 ?C (97.2 ?F) (Temporal Artery) Resp 16 Ht 172.7 cm (5' 8) Wt 109.3 kg (240 lb 15.4 oz) SpO2 96% BMI 36.64 kg/m? BMI 36.64 kg/(m2) Date 12/29/18699 - 12/30/18 0659 Shift 9592-5132 7853-7544 3403-7247 24 Hour Total INTAKE PO 360 360 IV 34.6 34.6 Shift Total 394.6 394.6 OUTPUT Urine 325 325 Shift Total 325 325 Weight (kg) 109.6 109.6 109.6 109.6 Date 12/28/181499 - 12/29/1865812/29/18699 - 12/30/18 0659 Shift 8486-4668 0590-0991 24 Hour Total 0856-6168 6136-6048 8984-2797 24 Hour Total INTAKE PO 982 533 5038 360 360 PO 617 911 0568 360 360 IV 217 217 34.6 34.6 Heparin IV 217 217 34.6 34.6 Shift Total 121 290 7089 394.6 394.6 OUTPUT Urine 3446 281 4364 325 325 Void (ml) 0762 297 6680 325 325 Shift Total 2029 329 6846 325 325 Weight (kg) 109.2 109.6 109.6 109.6 109.6 109.6 109.6 GENERAL: well nourished and developed; no acute distress; alert and oriented x 3; intact judgement and insight HEENT: no evidence of trauma; cranial nerves intact; eyes clear EOMI; no hearing deficits apparent; nasal passages unremarkable; throat and mucous membranes clear NECK: supple without lymphadenopathy; no JVD; no thyromegaly CHEST: clear bilaterally to auscultation; normal chest movement; no rales or rhonchi HEART: regular rate and rhythm, normal S1 and S2, no murmurs, clicks, rubs, or gallops ABDOMEN: soft; nondistended; bowel sounds present; no hepatomegaly; no splenomegaly; no tenderness EXTREMITIES: no evidence of clubbing; no cyanosis; no deformity; no joint effusion; his left arm is extensively wrapped, fingers appeared to be unremarkable.able to move fingers NEURO: cranial nerves intact; no focal deficits; no confusion; no tremor; sensorium normal SKIN: no rash; no skin breakdown; no decubitus lesions HEME: no bruising; no adenopathy PSYCH: no evidence of depression; no anxiety; no agitation; no apparent hallucinations PAIN PSYCHIATRIC EXAM: GENERAL: alert, oriented to person, place, time JUDGMENT AND INSIGHT: intact APPEARANCE: neatly groomed DEMEANOR: coooperative, not hostile, mistrustful, preoccupied, or demanding ACTIVITY: normal, not hyperactive or hypoactive, no tremors, tics EYE CONTACT: normal SPEECH: normal, rate, volume, articulation, coherence, spontaneity MOOD: normal, without overt sadness, grief, anxiety, appropriate to situation IDEATION: normal and without suicidal or homicidal ideation MEMORY: intact ABNORMAL/NEW FINDINGS: NONE RADIOLOGY/DIAGNOSTICS: LABORATORY: CBC: No results for input(s): WBC, RBC, HB, HCT, PLT, MCV, MCH, MPV, RDW in the last 24 hours. CMP: Recent Labs 01/03/19 0420 NA 132* K 4.3 CHLOR 99 CO2 29 BUN 10 CREAT 0.70 GLUC 110* CA 8.5 ANION 8 Heme: No results for input(s): RETICP, ABSRETIC, LD, FRANCK, FE, TIBC, TRANSFERSAT in the last 24 hours. ASSESSMENT ACTIVE PROBLEM LIST Other and Unspecified Hyperlipidemia Essential hypertension, benign Degeneration of Intervertebral Disc, Site Unspecified Lumbago Tendonitis of Ankle Dilcia (Obstructive Sleep Apnea) Rhinitis Obesity, Class I, Bmi 30-34.9 Injury of Radial Artery At Forearm Level, Left, Initial Encounter Limb Ischemia Obesity, Class II, Bmi 35-39.9 PLAN: Left arm pain, status post repair of ruptured left biceps, status post repair of laceration at bifurcation of left radial and left ulnar artery, status post compartment syndrome?status post fasciotomy Status post irrigation and debridement of left forearm fasciotomy with application of wound VAC 12/29 Opiate naive prior to presentation. Oxycodone 10-15 mg by mouth every 3 hours when necessary moderate or severe pain. Flexeril 5 mg by mouth 3 times a day as needed Dilaudid to 1-1.5 mg IV every 3 hours as needed for breakthrough pain Senna S 2 tabs by mouth twice a day Discharge planning to home noted. Oxycodone prescription placed in chart. Discussed with patient options for pain management in [place] if needed Dolly Clark MD [facility] PROGRESS HNO ID: [id number] Author: Mitchell Winter Service: Orthopaedic Surgery Author Type: Physician Type: Progress Notes Filed: 01/03/2019 8:57 AM Note Text: ORTHOPAEDIC SURGERY DAILY PROGRESS NOTE Patient Name: Irene Nieto Date of Evaluation: 01/03/2019 Admission Date: 12/24/2018 Time of Evaluation: 6:44 AM ORTHO STAFF: Patient seen and examined. Agree with resident assessment and plan noted below. Reviewed intraoperative findings and orthopaedic plan with patient. Mobilize with therapy for discharge planning. Plan of Care performed with nursing staff. Mitchell Winter MD ASSESSMENT: 53 year old male POD #?9 left arm radial and ulnar artery repair, L forearm volar fasciotomy, POD # 4 irrigation and debridement of left arm fasciotomy with application of wound vac, POD1 repeat irrigation and debridement, wound closure, application wound vac PLAN: -Pain control - pain management consult -Weight Bearing Status: Non-Weight Bearing LUE -DVT ppx: Continue lovenox -Post op Abx: Ancef 1g q8h x 2 doses completed -Wound vac LUE: Plan to maintain over weekend and likely discontinue prior to discharge early next week. -Short term use of posterior splint, will place order for occupational therapy thermoplast splint INTERVAL HPI: Patient monitored, no new events overnight. Well Controlled pain. Some spasms in LUE. Denies nausea/vomitting. OBJECTIVE: BP 132/65 Pulse 88 Temp 36.2 ?C (97.2 ?F) (Temporal) Resp 18 Ht 172.7 cm (5' 8) Wt 109.3 kg (240 lb 15.4 oz) SpO2 97% BMI 36.64 kg/m? Intake/Output Summary (Last 24 hours) No intake/output data recorded. Exam: General: NAD, AAOx3 Extremities: Left Upper Extremity: Wound vac intact with good seal. Minimal sensation to all fingertips Motor intact with minimal motion all fingers, improving Hand warm with brisk capillary refill to all digits Labs: WBC (thou/cmm) Date Value 01/01/2019 10.66 (H) RBC (mil/cmm) Date Value 01/01/2019 3.07 (L) HGB (g/dL) Date Value 01/01/2019 8.1 (L) Hematocrit (%) Date Value 01/01/2019 25.8 (L) MCV (fl) Date Value 01/01/2019 84.0 MCH (pg) Date Value 01/01/2019 26.4 MCHC (%) Date Value 01/01/2019 31.4 (L) Platelet Count (thou/cmm) Date Value 01/01/2019 297 MPV (fl) Date Value 01/01/2019 9.9 Glucose (mg/dL) Date Value 01/03/2019 110 (H) BUN (mg/dL) Date Value 01/03/2019 10 Creatinine (mg/dL) Date Value 01/03/2019 0.70 Sodium (mEq/L) Date Value 01/03/2019 132 (L) Potassium (mEq/L) Date Value 01/03/2019 4.3 Chloride (mEq/L) Date Value 01/03/2019 99 CO2 (mEq/L) Date Value 01/03/2019 29 Calcium (mg/dL) Date Value 01/03/2019 8.5 Steven Moran MD 01/03/2019 6:44 AM Normal [facility] THERAPY NTon 01-03-2019 THERAPY NT HNO ID: [id number] Author: Faith Villanueva/Polly Gautam Service: Occupational Therapy Author Type: Occupational Therapist Type: Therapy (PT/OT/Speech/Resp) Filed: 01/03/2019 7:15 PM Note Text: Occupational Therapy Evaluation SERVICE DATE: 01/03/2019 SERVICE TIME: 1407 to 1515 ROOM: [place] [id number] Recommended Discharge Disposition: Home Recommended Discharge Disposition Comments: Recommend home with family support and follow up with outpatient OT when healed/cleared for participation for splinting needs/return to funcitonal use of LUE in ADL. Anticipated Discharge Needs: Physical Assist at Home Physical Assist at Home for: Ambulation;Cleaning;Laun dry;Shopping;Transportat ion OT Recommendations to Nursing: To Bathroom for ADL?s /and or Toileting;OOB for meals;Transfer to Chair;With assist of 1 person OT 6 Clicks Score: 16 Precautions/Activity Restrictions: Weight Bearing Restrictions;Lines/Tubes /Drains;Brace Precaution/Activity Restriction Comments: wound vac LUE; LUE splint Extremity With Weight Bearing Restricted: Left Upper Extremity Left Upper Extremity Weight Bearing Status: NWB ASSESSMENT: Patient presents with marked LUE edema, LUE wounds, impaired LUE sensation, impaired UE motor function, need for protective positioning of LUE s/p injury/multiple surgeries and decreased independence in self care due to LUE impairments. Mildly impaired safety due to drowsy from medications intermittently, as well as mildly impaired functional mobility at times due to pain in LUE, wound vac. Patient is NWB LUE. Requires skilled OT for fabrication of thermaplast long arm splint to allow to remove for bathing/wound care as needed for protection while healing, education in splint wear/care/precautions, education in one handed techniques for ADL, and education for home/ADL mobility safety. Patient is very receptive to all education and has supportive family. Patient Disposition at Start of Session: Seen in therapy department Patient Disposition at End of Session: OOB in Chair;Call Santos in Reach Tolerated Full Session Occupational Therapy Problem List: Education Deficit;Pain;Edema;Safet y Deficits;Impaired Self Care;Decreased Activity Tolerance;Decreased Range Of Motion;Decreased Strength;Functional Mobility Impairment Patient /Caregiver Goals: Care For Self Goals for Plan of Care: Feeding with: Modified Independent Grooming with: Modified Independent Upper Body Bathing with: Minimal Assistance Upper Body Dressing with: Stand By Assistance Lower Body Bathing with: Minimal Assistance Lower Body Dressing with: Stand By Assistance Toilet Hygiene with: Modified Independent Chair Transfer with: Modified Independent Toilet Transfer with: Modified Independent Tolerate (minutes of functional activity): 45 Functional Activity with: Stand By Assistance Splint Management with: Minimal Assistance Splint Goals: Patient will demonstrate independent, safe, and accurate don/doff splint.;Patient will state/verbalize accurate understanding of splint wearing schedule, precautions and care. Additional Goal 1: Patient will complete functional mobility for ADL without assistive device at modified independent level Demonstrate Competence With Education with: Modified Independent(for ADL safety/compensatory techniques, ) Rehab Potential: Excellent PLAN: Treatment Frequency (times per week): 5(3-5 times per week; include splint checks) Current admission Treatment Interventions: Education;Self Care / Home Management;Functional Mobility Training;Pain Management;Edema Management;Orthotic Management and Training Plan of Care developed with: Patient TREATMENT INTERVENTIONS: Therapy Diagnosis: Reduced mobility-other;Decreased activities of daily living (ADL);Muscle Weakness (generalized)( decreased positioning of LUE/post op/splinting of UE) Interventions Provided: Evaluation;Orthotic Management (90894) $ Evaluation-Moderate (92008) Billed Units: 1 unit OT Evaluation Moderate Complexity: Occupational Profile - Extended review of patient's medical record completed including patient's physical, cognitive, and psycho-social history (please see current hospital course of evaluation). Occupational Performance - Pt presents with deficits in feeding, grooming, UE bathing/dressing, LE bathing/dressing, functional transfers, functional mobility, decreased safety awareness, decreased insight into deficits Complexity in Clinical Decision Making - The extent of clinical reasoning was moderate, several treatment options present for the patient, need for modification during the evaluation was minimal/moderate due to wound/wound vac, edema; comorbidities affecting occupational performance: lumbago Initiated education for one handed techniques/compensatory strategies for ADL, however would benefit from further review as focus of session on splinting/positioning of LUE after assessment. Orthotic Management (58645) Treatment Minutes: 53 4 units Skilled Intervention(s): Clinical knowledge and skills required for custom orthotic fabrication for long arm splint; involving support of elbow/forearm and wrist following multiple surgeries in order to protect for healing. Splint fabricated in a lateral/posterior position, similar to soft splint as applied post operatively by ortho. Splint is thermaplast, to allow removal for bathing/wound care as ordered, with velcro straps for ease of don/doff but still supportive in healing position. Patient immediately reports feels better open to air some, less itching. Splint fabricated with care/protection of wound vac and bandages. Patient/caregiver was educated in correct method for donning/doffing splint as ordered/recommended by ortho for hygiene/wound care and reapplied.Education for care of splint initiated, but would benefit from further education for follow through with cleaning splint as needed at home. Will issue additional velfoam straps prior to discharge as needed to replace if damaged/lost. Patient education in skin checks and notifying RN/OT of any pressure areas or discomfort. Collaborated with RN for application of bandages/cleaning of arm and padding under splint as unable to put stockinette ever wounds/wound vac at this time.RN reviewed skin areas with therapy and patient. Wound with clear dressing/wound vac on deleon surface wrist/forearm and up to biceps. Small pressure area identified prior to application that appears to be small popped blister on lateral side of left wrist. RN applied protective dressing. Requested RN to perform skin checks and check in with patient tonight for safety, with information to be provided to OT for any adjustments needed to splint. Left soft cast/splint from post op in room with osmar bandages to be reapplied if any difficulties with thermaplast splint. Splint will checked tomorrow for fit, comfort and any adjustments or further padding needed. If needed, will stretch wrist portion of splint to allow further into palm if additional support needed at wrist as made smaller than soft splint due to discomfort in palm area reported by patient from prior splint. Will monitor with ortho for proper fit/desired positioning for healing and use at home. Total Timed Code Treatment Minutes: 53 Total Treatment Time (minutes): 68 SUBJECTIVE: Current Hospital Course: Chart reviewed; This is a 53 year old male who sustained vascular injury to the left forearm during an elective biceps tendon repair at another institution 12/24/2018. He underwent multiple procedures including vascular repair, forearm decompression, carpal tunnel release and wound debridements with vac application. Procedures include: SURGERY/PROCEDURE DATE: 12/24/2018 SURGERY/PROCEDURE(S): 1) Exploration of LUE 2) Evacuation of Hematoma 3) Repair of L Radial Artery 4) Re-Implantation of L Ulnar Artery 5) LUE Fasciotomy and Carpal Tunnel Release Surgery/Procedure Date: 12/30/18 Procedure(s): Irrigation and debridement of left forearm fasciotomy with application of wound vac Surgery/Procedure Date: 01/02/2019 Procedure(s): Procedure(s) (LRB): SECONDARY WOUND CLOSURE UPPER EXTREMITY COMPLEX (Left) APPLICATION WOUND VAC BACK TOTAL WOUND SURFACE GREATER THAN 50 SQ CENTIMETERS (Left) Non-Weight Bearing LUE Orders received for custom, thermaplast splint with posterior fit/velcro straps to allow removal/ease of care and support for healing. Reason for Occupational Therapy Consult: LUE long arm splint; change in functional status Relevant Past Medical History: lumbago, DILCIA Patient Report: Patient very pleasant, agreeable to therapy and good understand of education provided. Reports 3/10 pain in LUE, reporting generally is 6-7/10 pain and is addressing with ortho/pain management. Patient reports that his /family will be able to assist as needed at home. Reports, This feels pretty good a bit more open. It's not so itchy. This whole thing has changed my life in a day. Support, encouragement provided for healing and return to functional life. 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 OBJECTIVE: Cognition/Communication Deficits Orientation Deficits: (oriented x 4) Responsiveness: Alert Follows Commands: 3-step Commands CURRENT FUNCTIONAL STATUS: Current Activities of Daily Living Assist Level Feeding Set Up Grooming Minimal Assistance Bathing Upper Body Moderate Assistance Bathing Lower Body Moderate Assistance Dressing Upper Body Moderate Assistance Dressing Lower Body Moderate Assistance Toileting Contact Guard Assistance Functional Mobility Assist Level Rolling up on arrival Supine to Sit Sit to Supine Scooting Sit to Stand Stand By Assistance Stand to Sit Stand By Assistance Bed to Chair Stand By Assistance Stand Pivot Toilet/Commode Contact Guard Assistance Functional Mobility Contact Guard Assistance(/SBA) (no device) Hand Dominance: Right Range of Motion: Upper Extremity Comments R Upper Extremity ROM Comments: WFL L Upper Extremity ROM Comments: Shoulder AAROM 0-105 shoulder flexion; Elbow/forearm/wrist NE due to s/p surgery/wounds; patient is able to move left index finger 1/4-1/2 range, 3rd digit and thumb 1/4 range, and trace finger flexion beginning left 4th/5th digits.Note active wrist extension during splinting tasks. Strength: Strength Limitation Comments Strength Limitation Comments: RUE grossly 4/5 to 4+/5; LUE NT Coordination Deficits: In hand manipulation;Finger opposition;Finger to nose(impaired/absent LUE; WFL RUE) LUE sensation; Patient able to feel some deep touch/pressure radially, with new report later in day of feeling very deep pressure/squeezing action medial/ulnar.Difficulty with localization, but did ID some stimulation to 5th digit at end of session. Has sensation in dorsal wrist/forearm for light touch/localization to limited testing. Reports thinks he is feeling more than earlier. Balance: Static Standing;Dynamic Standing;Dynamic Sitting Dynamic Sitting Balance: Stand By Assistance Static Standing Balance: Stand By Assistance Dynamic Standing Balance: Contact Guard Assistance Activity Tolerance: Standing Activity;Sitting Activity Sitting Activity: Out of bed in chair for ADL/splinting activities >1 hr Standing Activity: standing for ADL /ADL mobility Standing Activity Tolerance (in minutes): 5 Please see discipline specific clinical documentation flowsheet for complete details for this therapy evaluation/treatment. SIGNATURE: EBEN Johnson/L PATIENT NAME: Irene Nieto DATE: January 03, 2019 TIME: 6:37 PM Normal [facility] THERAPY NT HNO ID: [id number] Author: Ольга (Pt) Vicente Service: Physical Therapy Author Type: Physical Therapist Type: Therapy (PT/OT/Speech/Resp) Filed: 01/03/2019 2:26 PM Note Text: Physical Therapy Evaluation SERVICE DATE: 01/03/2019 SERVICE TIME: 1335 to 1400 ROOM: [id number] Recommended Discharge Disposition: Home Anticipated Discharge Needs: Physical Assist at Home Physical Assist at Home for: Ambulation;Cleaning;Laun dry;Shopping;Transportat ion PT Recommendations to Nursing: Ambulate without device;In halls;To bathroom Device: No Device PT 6 Clicks Score: 24 Precautions/Activity Restrictions: Weight Bearing Restrictions Extremity With Weight Bearing Restricted: Left Upper Extremity Left Upper Extremity Weight Bearing Status: NWB ASSESSMENT : This patient was admitted for status post multiple surgeries R upper extremity , has the past medical history of back pain impacting current functional level, as well as the social factors complicating the discharge of NA. This patient is near baseline functioning of independent, active. Patient is ambulating at stand by assist level in the hallway. Encouraged patient to keep active while in the hospital to tolerance. No further acute care PT needs at this time. Patient Disposition at Start of Session: OOB in Chair;Sitting Edge of Bed Patient Disposition at End of Session: Seen in Therapy Department Tolerated Full Session Patient /Caregiver Goals: Go Home Goals for Plan of Care: PLAN: Treatment Frequency (times per week): Discontinue Therapy Services Reasons Therapy Services Discontinued: Independent in all functional mobility Plan of Care developed with: Patient TREATMENT INTERVENTIONS: Therapy Diagnosis: No Skilled Need Interventions Provided: Evaluation $ Evaluation-Low (12053) Billed Units: 1 unit History and examination of body systems see assessment section above. This patient?s clinical presentation is stable. The patient required a low complexity evaluation. Patient demo safe functional mobility in his room although patient reports subjective weakness. Encouraged patient to ambulate as tolerated in the hallways to decrease risk for further deconditioning. Total Treatment Time (minutes): 25 SUBJECTIVE: Current Hospital Course: Chart reviewed; Patient presents as a transfer from an outside hospital with concerns for a vascular injury to his Left upper extremity after a single-incision distal biceps repair. Complains of pain and numbness over his entire Left hand as well as inability to move his digits. SURGERY/PROCEDURE DATE: 12/24/2018 SURGERY/PROCEDURE(S): 1) Exploration of LUE 2) Evacuation of Hematoma 3) Repair of L Radial Artery 4) Re-Implantation of L Ulnar Artery 5) LUE Fasciotomy and Carpal Tunnel Release Surgery/Procedure Date: 12/30/18 Procedure(s): Irrigation and debridement of left forearm fasciotomy with application of wound vac Surgery/Procedure Date: 01/02/2019 Procedure(s): Procedure(s) (LRB): SECONDARY WOUND CLOSURE UPPER EXTREMITY COMPLEX (Left) APPLICATION WOUND VAC BACK TOTAL WOUND SURFACE GREATER THAN 50 SQ CENTIMETERS (Left) Reason for Physical Therapy Consult : safety assessment Relevant Past Medical History: lumbago, DILCIA Patient Report: 5/10 pain. Agreeable to PT. Cooperative. 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 OBJECTIVE: CURRENT FUNCTIONAL STATUS: Current Functional Mobility Assist Level Additional Information Rolling Supine to Sit Sit to Supine Scooting Sit to Stand Stand By Assistance Stand to Sit Stand By Assistance Bed to Chair Toilet/Commode Gait Stand By Assistance Gait Device: None Gait Distance (feet): 150 ft Stairs Curb Step Car Transfer Range of Motion: WFL Except;ROM Limitation Comments ROM Limitation Comments: L UE in splint Strength: Strength Limitation Comments;WFL Except Strength Limitation Comments: L UE in splint -[facility]: 7: Walk 25 feet or more Please see discipline specific clinical documentation flowsheet for complete details for this therapy evaluation/treatment. SIGNATURE: Ольга Zhang PT PATIENT NAME: Irene Nieto DATE: January 03, 2019 TIME: 2:19 PM [facility] ANES Bertha 01-02-2019 ANES POST HNO ID: [id number] Author: Vasu Calzada Service: Anesthesiology Author Type: Physician Type: Anesthesia PostOp Filed: 01/02/2019 6:11 PM Note Text: POST ANESTHESIA EVALUATION NOTE SERVICE DATE: 01/02/2019 SERVICE TIME: 6:11 PM : 1965 Vitals: 01/02/19 1050 01/02/19 1222 01/02/19 1443 01/02/19 1527 Temp: 36.3 ?C (97.3 ?F) 36.3 ?C (97.3 ?F) 36.4 ?C (97.5 ?F) 36.7 ?C (98.1 ?F) 01/02/19 1415 01/02/19 1430 01/02/19 1445 01/02/19 1527 Arterial BP 1: BP: 140/65 141/72 146/69 156/70 01/02/19 1415 01/02/19 1430 01/02/19 1445 01/02/19 1527 Pulse: 100 98 99 108 01/02/19 1415 01/02/19 1430 01/02/19 1445 01/02/19 1527 Resp: 16 17 21 18 01/02/19 1415 01/02/19 1430 01/02/19 1445 01/02/19 1527 SpO2: 92% 89% 94% 96% Validated Vital Signs: Yes POST ANES STATUS: No apparent anesthetic complications. The patient is appropriately hydrated with stable respiratory and cardiovascular status. Patient has safe and adequate airway control. The patient has appropriate pain relief and no significant post operative nausea or vomiting. The patient has achieved baseline mental status. Intra-Operative Events: No Significant Anesthesia Events Further assessment by Anesthesia Service: None Other Remarks: SIGNATURE: Vasu Calzada DO PATIENT NAME: Irene Nieto DATE: January 02, 2019 TIME: 6:11 PM PAGER/CONTACT #: [phone] [facility] ANES PREOPon 01-02-2019 ANES PREOP HNO ID: [id number] Author: Chele Mendoza Service: Anesthesiology Author Type: Physician Type: Anesthesia PreOp Filed: 01/02/2019 11:05 AM Note Text: ANESTHESIOLOGY DAY OF SURGERY NOTE SERVICE DATE: 01/02/2019 SERVICE TIME: 11:02 AM : 1965 Procedure(s) (LRB): SECONDARY WOUND CLOSURE UPPER EXTREMITY COMPLEX (Left) APPLICATION WOUND VAC BACK TOTAL WOUND SURFACE GREATER THAN 50 SQ CENTIMETERS (Left) Surgeon(s): Mitchell Moran Estimated body mass index is 36.64 kg/m? as calculated from the following: Height as of this encounter: 172.7 cm (5' 8). Weight as of this encounter: 109.3 kg (240 lb 15.4 oz). Most recent hematocrit and potassium results: Hematocrit 25.8 01/01/2019 Potassium 4.2 01/02/2019 ANES DOS/PREOP NOTE: Vitals: 01/02/19 0000 01/02/19 0251 01/02/19 0847 01/02/19 1050 BP: 134/59 134/67 151/66 155/72 Pulse: 102 103 97 102 Resp: 16 16 17 16 Temp: 36.7 ?C (98.1 ?F) 36.1 ?C (97 ?F) 36.7 ?C (98.1 ?F) 36.3 ?C (97.3 ?F) TempSrc: Temporal Temporal Artery Oral SpO2: 95% 93% 94% 95% Weight: Height: ACTIVE PROBLEM LIST Other and Unspecified Hyperlipidemia Essential hypertension, benign Degeneration of Intervertebral Disc, Site Unspecified Lumbago Tendonitis of Ankle Dilcia (Obstructive Sleep Apnea) Rhinitis Obesity, Class I, Bmi 30-34.9 Injury of Radial Artery At Forearm Level, Left, Initial Encounter Limb Ischemia Obesity, Class II, Bmi 35-39.9 PAST MEDICAL HISTORY Diagnosis Date - Essential hypertension, benign - Injury of brachial artery, initial encounter 12/24/2018 - Lumbago - Obstructive sleep apnea PAST SURGICAL HISTORY Procedure Laterality Date - PAST SURGICAL HISTORY OF left knee No family history on file. Social History: Social History Tobacco Use - Smoking status: Never Smoker - Smokeless tobacco: Never Used Substance Use Topics - Alcohol use: No - Drug use: No No current facility-administered medications on file prior to encounter. Current Outpatient Medications on File Prior to Encounter: omeprazole (PRILOSEC) 20 mg capsule Take 20 mg by mouth once daily. armodafinil (NUVIGIL) 150 mg tab Take 75 mg by mouth once daily. For shift work disorder Current Facility-Administered Medications Medication Dose Route Frequency Provider Last Rate Last Dose - [MAR Hold due to Transfer] oxyCODONE IR 10 mg tab(s) (ROXICODONE) 10 mg ORAL q 3 H PRN Natalee K Scantling - [MAR Hold due to Transfer] oxyCODONE IR 15 mg tab(s) (ROXICODONE) 15 mg ORAL q 3 H PRN Natalee K Scantling 15 mg at 01/02/19 0851 - [MAR Hold due to Transfer] acetaminophen 975 mg tab(s) (TYLENOL) 975 mg ORAL q 6 H PRN Ольга Cervantes - [MAR Hold due to Transfer] cyclobenzaprine 5 mg tab(s) (FLEXERIL) 5 mg ORAL TID PRN Todd Hieb 5 mg at 01/01/195 - [MAR Hold due to Transfer] pill splitter (patient-specific) 1 Each Miscell. (Med.Supl.;Non-Drugs) PRN Brooke Posey (Pharmacist) - [MAR Hold due to Transfer] senna-docusate 8.6-50 mg 2 tablet (SENNA-S) 2 tablet ORAL BID Ольга Cervantes 2 tablet at 01/01/19 2007 - [MAR Hold due to Transfer] enoxaparin 40 mg injection (LOVENOX) 40 mg SUBCUTANEOUS q 24 HR Ольга Cervantes 40 mg at 01/01/19 1150 - [MAR Hold due to Transfer] HYDROmorphone 1-1.5 mg injection (DILAUDID) 1-1.5 mg INTRAVENOUS q 3 H PRN Ольга Cervantes 1.5 mg at 01/02/19 1003 - [MAR Hold due to Transfer] therapeutic multivitamin with iron (THERAGRAN-M) 1 tablet ORAL DAILY Ольга Cervantes 1 tablet at 01/01/19 0927 - [MAR Hold due to Transfer] sodium chloride 0.65 % 2 [place] (AYR, OCEAN) 2 [place] EACH NOSTRIL PRN Ольга Cervantes - [MAR Hold due to Transfer] polyethylene glycol 3350 17 g packet (MIRALAX, GLYCOLAX) 17 g ORAL DAILY PRN Ольга ([place]) Billy 17 g at 01/01/19 0927 - [MAR Hold due to Transfer] bisacodyl 10 mg suppository (DULCOLAX) 10 mg RECTAL DAILY PRN Ольга ([place]) Billy - [MAR Hold due to Transfer] ondansetron 4 mg tab(s) (ZOFRAN) 4 mg ORAL q 6 H PRN Ольга ([place]) Billy Or - [MAR Hold due to Transfer] ondansetron (PF) 4 mg injection (ZOFRAN) 4 mg INTRAVENOUS q 6 H PRN Ольга ([place]) Billy 4 mg at 01/01/19 0824 - [MAR Hold due to Transfer] famotidine 20 mg tab(s) (PEPCID) 20 mg ORAL BID Ольга ([place]) Billy 20 mg at 01/01/192006 Allergies: ALLERGIES Allergen Reactions - Sudafed [Pseudoephe* Other: See Comments Severe htn, elevated HR DOS EXAM: Adequate NPO status: Yes Anesthetic risks, benefits, alternatives, personnel and consent discussed: Yes Patient agrees to proceed: Yes Previous Anesthesia: No history of adverse event. Airway Assessment: MP 3; Neck ROM: Full ROM without neurologic symptoms; Airway Evaluation: Short Neck and Thick neck Symptoms of Sleep Apnea: Hypertension, BMI > 35, Age over 50 (53 year old), Neck circumference > 15.75 inches and Male gender Dentition: Teeth intact Chipped, loose and/or missing Additional Physical Exam: Lungs: Patient health status unchanged since recent history and physical. See history and physical for exam findings. Cardiac: Patient health status unchanged since recent history and physical. See history and physical for exam findings. Additional Pertinent Findings: N/A Blood Products: Not anticipated for this procedure. Anesthetic Plan: General, Standard ASA Monitors Pain Management Plan: Parenteral or Oral ASA Class: 3 Other Medical Problems: None Chronic Beta Zaria medication administered within 24 hours: N/A I have interviewed and examined the patient. I have reviewed the medical record and/or the pre-anesthesia evaluation, pertinent labs, and test results. Significant changes in the patient's condition since the History and Physical, not otherwise documented in primary service progress notes: No This contains updated information obtained within 48 hours of Surgery/Procedure. SIGNATURE: Chele Mendoza MD PATIENT NAME: Irene Nieto DATE: January 02, 2019 TIME: 11:02 AM CSN: [id number] Normal [facility] BRIEF OP NOTon 01-02-2019 BRIEF OP NOT HNO ID: [id number] Author: Steven Moran Service: Orthopaedic Surgery Author Type: Resident Type: Brief Op Note Filed: 01/02/2019 12:29 PM Note Text: ORTHO BRIEF OPERATIVE REPORT PATIENT NAME: Irene Nieto LOG ID: [id number] Surgery/Procedure Date: 01/02/2019 Incision/Procedure Start Time: 11:28 AM Incision Close/Procedure End Time: 12:16 PM Surgeon(s)/Proceduralist (s) and City Attorney(s): Surgeon(s) and Role: * Mitchell Winter - Primary * Steven Moran - Resident - Assisting No Additional Staff Procedure(s): Procedure(s) (LRB): SECONDARY WOUND CLOSURE UPPER EXTREMITY COMPLEX (Left) APPLICATION WOUND VAC BACK TOTAL WOUND SURFACE GREATER THAN 50 SQ CENTIMETERS (Left) Anesthesia: General Pre-Op/Pre-Procedure Diagnosis: L forearm compartment syndrome Post-Op/Post-Procedure Diagnosis: L forearm compartment syndrome Fluids: 900 cc crystalloid Estimated Blood Loss: 25 cc Braun: None Specimens: None Drains: None Findings: See full operative report Complications: None Special medications: 2 g Ancef Participation in Procedure: I/primary surgeon/proceduralist performed the procedure with assistance. Post op plan: -Pain control -Weight Bearing Status: Non-Weight Bearing LUE -DVT ppx: Continue lovenox -Post op Abx: Ancef 1g q8h x 2 doses -Wound vac LUE: Plan to maintain over weekend and likely discontinue prior to discharge early next week. Steven Moran MD PGY-3 January 02, 2019 12:26 PM Pager: [phone] Normal [facility] Basic Panelon 01-02-2019 Creatinine [Mass/Vol] 0.71 mg/dL Normal 0.67-1.17 [facility] Comment on above: Performed By: #### G FR #### [place] [id number] Anion gap [Moles/Vol] 10 mmol/L Normal 8-16 [facility] Comment on above: Performed By: #### G FR #### [facility] [address] [place], [place] [address] CO2 [Moles/Vol] 26 mmol/L Normal 21-32 [facility] Comment on above: Performed By: #### G FR #### [facility] [address] [place], [place] [address] Glucose [Mass/Vol] 128 mg/dL High 70-99 [facility] Comment on above: Performed By: #### G FR #### [facility] [address] [place], [place] [address] Urea nitrogen [Mass/Vol] 10 mg/dL Normal 7-18 [facility] Comment on above: Performed By: #### G FR #### [facility] [address] [place], [place] [address] Calcium [Mass/Vol] 8.7 mg/dL Normal 8.5-10.1 [facility] Comment on above: Performed By: #### G FR #### [facility] [address] [place], [place] [address] Chloride [Moles/Vol] 102 mmol/L Normal 98-107 [facility] Comment on above: Performed By: #### G FR #### [facility] [address] [place], [place] [address] Potassium [Moles/Vol] 4.2 mmol/L Normal 3.5-5.1 [facility] Comment on above: Performed By: #### G FR #### [facility] [address] [place], [place] [address] Sodium [Moles/Vol] 134 mmol/L Low 136-145 [facility] Comment on above: Performed By: #### G FR #### [facility] [address] [place], [place] [address] OPERATIVE NOon 01-02-2019 OPERATIVE NO HNO ID: [id number] Author: Mitchell Winter Service: Orthopaedic Surgery Author Type: Physician Type: Operative Report Filed: 01/02/2019 7:59 PM Note Text: ORTHOPAEDIC OPERATIVE REPORT PATIENT NAME: Irene Nieto Surgery/Procedure Date: 01/02/2019 Incision/Procedure Start Time: 11:28 AM Incision Close/Procedure End Time: 12:16 PM Surgeon(s) and City Attorney(s): Surgeon(s) and Role: * Mitchell Winter - Primary * Steven Moran - Resident - Assisting No Additional Staff PRE-OPERATIVE DIAGNOSIS: Left forearm fasciotomy s/p vascular repair POST-OPERATIVE DIAGNOSIS: Left forearm fasciotomy s/p vascular repair SURGICAL PROCEDURE(S): 1) Secondary closure volar left forearm fasciotomy 2) Application incisional wound vac - 2 sites - (14 cm x 2 cm x 1 cm) + (8 cm x 10 cm x 1 cm) Anesthesia: General Implantable Devices: None Complications: None Specimens: None Estimated Blood Loss: < 25 mls OPERATIVE INDICATIONS: This is a 53 year old male who sustained vascular injury to the left forearm during an elective biceps tendon repair at another institution 12/24/2018. He underwent multiple procedures including vascular repair, forearm decompression, carpal tunnel release and wound debridements with vac application. Risks and benefits of secondary wound closure were reviewed in detail with the patient all questions were answered. OPERATIVE PROCEDURE: The patient was brought to the operating room on the hospital bed. He was intubated per Anesthesia. The patient was then transferred to the operating table. The left upper extremity was pre-washed with chlorhexidine. The vessel loops and tito were removed from the volar forearm fasciotomy wound. It was padded prepped and sterilely draped for the procedure. The [facility] timeout protocol was performed. The wound was gently irrigated with saline. The skin edges were mobilized manually. Alternating horizontal mattress sutures with 2-0 nylon were placed. The wound was gently tensioned and closure of each suture was performed at the edges. The wound was closed completely. A few simple 2-0 and 3-0 nylon sutures were placed where needed. An incisional vac was placed over the fasciotomy wound, connected to the area of skin blistering around the previous surgical incision. Total dimensions were 14 cm x 2 cm x 1 cm and 8 cm x 10 cm x 1 cm. A posterior splint was applied in slight extension. All draping was removed. The patient was extubated per Anesthesia. He was returned to the hospital bed and taken to the recovery room in stable condition. POST-OPERATIVE PLAN: Non-weight bearing left upper extremity with vac in place; anticipate vac removal prior to hospital discharge. Short term use of posterior splint, will place order for occupational therapy thermoplast splint based on neurologic dysfunction documented previously. Pain control (pain management consult). Recommend suture removal ~3 weeks. Updated family regarding post-surgical state via phone conversation. I/primary surgeon/proceduralist performed the procedure with assistance. SIGNATURE: Mitchell Winter MD DATE: January 02, 2019 TIME: 7:48 PM Normal [facility] PROGRESSon 01-02-2019 PROGRESS HNO ID: [id number] Author: Natalee Avina Service: Pain Management Author Type: Physician Type: Progress Notes Filed: 01/02/2019 9:51 AM Note Text: PAIN CONSULTATION: Left arm pain;left arm radial and ulnar artery injury s/p POD5 repair, left forearm compartment syndrome s/p POD5 L forearm volar fasciotomy IRENE Fidel NIETO 53 year old 24 HOUR COMFORT MEDICATIONS: Acetaminophen 975 mg x none Gabapentin discontinued due to side effects; Hydromorphone 1 mg IV ? 4 Oxycodone 10mg x one ? GI regimen Senna?S twice a day Pain Description: Dilaudid by mouth discontinued yesterday due to concerns of hallucinations. Oxycodone added. Patient awoke this morning with severe stabbing pain left forearm described as a knife in his arm. Patient's at the bedside. Patient appears reluctant to ask for pain medications. Surgical plans pending Interval HPI: Plans for repeat IANDD, secondary closure first application of rat exterminator wound VAC later today 12/30 irrigation and debridement of left forearm fasciotomy with application of wound VAC per Ortho Subjective HPI: 53-year-old male, transferred from [facility] on 12/25/2018 secondary to avascular injury to his left upper extremity after a single incision distal biceps repair earlier that day. Approximately one week prior to his initial presentation, while constructing a pleural, the patient felt a sudden pop in his left arm, resulting in a rupture of his left distal biceps while lifting a heavy box. On the day of presentation, he underwent a left biceps repair with arthritis tendon button and screw. However, following that procedure he developed paresthesias in his left arm on the dorsal and volar aspects down to his fingers, and was unable to flex, extend his elbow, wrists, fingers, and there was concern that there was a brachial artery injury as a result of the surgery itself. He was taken emergently to the operating room from the emergency department here, where he underwent repair of the left radial artery, reimplantation of the left ulnar artery, left upper extremity fasciotomy and carpal tunnel release as well as a fasciotomy of the left forearm. During that surgery was identified that he had a laceration at the bifurcation of the ulnar and brachial arteries with compartment syndrome. His [place] prescription history is unremarkable except for one prescription for Nuvigil, and one prescription for [place]. 11/29/2018 1 11/28/2018 Armodafinil 150 MG Tablet 30 30 Pa Tri [id number] [place] ([id number]) 0 Private Pay [place] 11/25/2018 1 11/25/2018 Hydrocodone-Acetamin 5-325 MG 10 3 Da Barbi [id number] [place] ([id number]) 0 16.67 MME Comm Ins [place] Current Facility-Administered Medications Medication Dose Route Frequency Provider Last Rate Last Dose - oxyCODONE IR 10 mg tab(s) (ROXICODONE) 10 mg ORAL q 3 H PRN Natalee K Scantling - oxyCODONE IR 15 mg tab(s) (ROXICODONE) 15 mg ORAL q 3 H PRN Natalee K Scantling 15 mg at 01/02/19 0851 - acetaminophen 975 mg tab(s) (TYLENOL) 975 mg ORAL q 6 H PRN Ольга ([place]) [place] - cyclobenzaprine 5 mg tab(s) (FLEXERIL) 5 mg ORAL TID PRN Todd Hieb 5 mg at 01/01/19 2225 - pill splitter (patient-specific) 1 Each Miscell. (Med.Supl.;Non-Drugs) PRN Brooke Posey (Pharmacist) - senna-docusate 8.6-50 mg 2 tablet (SENNA-S) 2 tablet ORAL BID Ольга ([place]) Billy 2 tablet at 01/01/192006 - enoxaparin 40 mg injection (LOVENOX) 40 mg SUBCUTANEOUS q 24 HR Ольга ([place]) Billy 40 mg at 01/01/19 1150 - HYDROmorphone 1-1.5 mg injection (DILAUDID) 1-1.5 mg INTRAVENOUS q 3 H PRN Ольга ([place]) Billy 1.5 mg at 01/02/19 0705 - therapeutic multivitamin with iron (THERAGRAN-M) 1 tablet ORAL DAILY Ольга ([place]) Billy 1 tablet at 01/01/19 0927 - sodium chloride 0.65 % 2 [place] (AYR, OCEAN) 2 [place] EACH NOSTRIL PRN Ольга ([place]) Billy - polyethylene glycol 3350 17 g packet (MIRALAX, GLYCOLAX) 17 g ORAL DAILY PRN Ольга ([facility]) Billy 17 g at 01/01/19 0927 - bisacodyl 10 mg suppository (DULCOLAX) 10 mg RECTAL DAILY PRN Ольга ([place]) Billy - ondansetron 4 mg tab(s) (ZOFRAN) 4 mg ORAL q 6 H PRN Ольга ([place]) Billy Or - ondansetron (PF) 4 mg injection (ZOFRAN) 4 mg INTRAVENOUS q 6 H PRN Ольга ([place]) Billy 4 mg at 01/01/19 0824 - famotidine 20 mg tab(s) (PEPCID) 20 mg ORAL BID Ольга ([facility]) Billy 20 mg at 01/01/192006 Medications Prior to Admission: omeprazole (PRILOSEC) 20 mg capsule Take 20 mg by mouth once daily. Disp: Rfl: armodafinil (NUVIGIL) 150 mg tab Take 75 mg by mouth once daily. For shift work disorder Disp: Rfl: Social History Socioeconomic History Marital status: Spouse name: Not on file Number of children: Not on file Years of education: Not on file Highest education level: Not on file Social Needs Financial resource strain: Not on file Food insecurity - worry: Not on file Food insecurity - inability: Not on file Transportation needs - medical: Not on file Transportation needs - non-medical: Not on file Occupational History Not on file Tobacco Use Smoking status: Never Smoker Smokeless tobacco: Never Used Substance and Sexual Activity Alcohol use: No Drug use: No Sexual activity: Not on file Other Topics Concerns: Not on file Social History Narrative Not on file No family history on file. PAST SURGICAL HISTORY Procedure Laterality Date - PAST SURGICAL HISTORY OF left knee ROS: All of the following reviewed and negative except as noted below: GENERAL: no fever, chills, sweats, weight gain of 20-30 lbs, also associated fatigue, generalized weakness HEENT: no headache, vision changes, eye discomfort, hearing change, ear discomfort, sinus pain, nasal discharge or congestion, oral lesions, soreness, dental problem NECK: no adenopathy, discomfort, change in ROM CHEST: no shortness of breath, dyspnea on exertion, wheezing, cough, sputum production or chest pain HEART: no chest pain, palpitations, syncope ABDOMEN: no nausea, vomiting, constipation, diarrhea, abdominal pain : no dysuria, urgency, frequency, history of stones, incontinence NEURO: no confusion or alteration in consciousness, slurred speech, seizure, focal weakness EXTREMITIES: no new pain, but diffuse edema, see also history of present illness HEME: no new adenopathy, bruises, petechiae PSYCH: no depression, anxiety, agitation PHYSICAL EXAMINATION: see below for new or abnormal findings BP 151/66 Pulse 97 Temp 36.7 ?C (98.1 ?F) (Oral) Resp 17 Ht 172.7 cm (5' 8) Wt 109.3 kg (240 lb 15.4 oz) SpO2 94% BMI 36.64 kg/m? BMI 36.64 kg/(m2) Date 12/29/18699 - 12/30/18 0659 Shift 1875-6602 1828-0811 6564-9056 24 Hour Total INTAKE PO 360 360 IV 34.6 34.6 Shift Total 394.6 394.6 OUTPUT Urine 325 325 Shift Total 325 325 Weight (kg) 109.6 109.6 109.6 109.6 Date 12/28/181499 - 12/29/1865812/29/18 07 - 12/30/18 0659 Shift 1509-4612 3015-4525 24 Hour Total 8882-9239 3830-9955 5641-9415 24 Hour Total INTAKE PO 690 418 6373 360 360 PO 894 082 3511 360 360 IV 217 217 34.6 34.6 Heparin IV 217 217 34.6 34.6 Shift Total 970 942 1040 394.6 394.6 OUTPUT Urine 9823 962 2366 325 325 Void (ml) 9965 780 0951 325 325 Shift Total 7076 677 9079 325 325 Weight (kg) 109.2 109.6 109.6 109.6 109.6 109.6 109.6 GENERAL: well nourished and developed; no acute distress; alert and oriented x 3; intact judgement and insight HEENT: no evidence of trauma; cranial nerves intact; eyes clear EOMI; no hearing deficits apparent; nasal passages unremarkable; throat and mucous membranes clear NECK: supple without lymphadenopathy; no JVD; no thyromegaly CHEST: clear bilaterally to auscultation; normal chest movement; no rales or rhonchi HEART: regular rate and rhythm, normal S1 and S2, no murmurs, clicks, rubs, or gallops ABDOMEN: soft; nondistended; bowel sounds present; no hepatomegaly; no splenomegaly; no tenderness EXTREMITIES: no evidence of clubbing; no cyanosis; no deformity; no joint effusion; his left arm is extensively wrapped, fingers appeared to be unremarkable.able to move fingers NEURO: cranial nerves intact; no focal deficits; no confusion; no tremor; sensorium normal SKIN: no rash; no skin breakdown; no decubitus lesions HEME: no bruising; no adenopathy PSYCH: no evidence of depression; no anxiety; no agitation; no apparent hallucinations PAIN PSYCHIATRIC EXAM: GENERAL: alert, oriented to person, place, time JUDGMENT AND INSIGHT: intact APPEARANCE: neatly groomed DEMEANOR: coooperative, not hostile, mistrustful, preoccupied, or demanding ACTIVITY: normal, not hyperactive or hypoactive, no tremors, tics EYE CONTACT: normal SPEECH: normal, rate, volume, articulation, coherence, spontaneity MOOD: normal, without overt sadness, grief, anxiety, appropriate to situation IDEATION: normal and without suicidal or homicidal ideation MEMORY: intact ABNORMAL/NEW FINDINGS: NONE RADIOLOGY/DIAGNOSTICS: LABORATORY: CBC: No results for input(s): WBC, RBC, HB, HCT, PLT, MCV, MCH, MPV, RDW in the last 24 hours. CMP: Recent Labs 01/02/19 0301 NA 134* K 4.2 CHLOR 102 CO2 26 BUN 10 CREAT 0.71 GLUC 128* CA 8.7 ANION 10 Heme: No results for input(s): RETICP, ABSRETIC, LD, FRANCK, FE, TIBC, TRANSFERSAT in the last 24 hours. ASSESSMENT ACTIVE PROBLEM LIST Other and Unspecified Hyperlipidemia Essential hypertension, benign Degeneration of Intervertebral Disc, Site Unspecified Lumbago Tendonitis of Ankle Dilcia (Obstructive Sleep Apnea) Rhinitis Obesity, Class I, Bmi 30-34.9 Injury of Radial Artery At Forearm Level, Left, Initial Encounter Limb Ischemia Obesity, Class II, Bmi 35-39.9 PLAN: Left arm pain, status post repair of ruptured left biceps, status post repair of laceration at bifurcation of left radial and left ulnar artery, status post compartment syndrome?status post fasciotomy Status post irrigation and debridement of left forearm fasciotomy with application of wound VAC 12/29 Plan to return to OR today for repeat IANDD, secondary closure versus application of rat exterminator wound VAC Opiate naive prior to presentation. Oxycodone 10-15 mg by mouth every 3 hours when necessary moderate or severe pain. Flexeril 5 mg by mouth 3 times a day as needed Dilaudid to 1-1.5 mg IV every 3 hours as needed for breakthrough pain Senna S 2 tabs by mouth twice a day Discharge planning to home noted. Oxycodone prescription placed in chart. Discussed with patient options for pain management in [place] if needed Natalee Avina MD [facility] PROGRESS HNO ID: [id number] Author: Yuliya Sargent Service: Orthopaedic Surgery Author Type: Resident Type: Progress Notes Filed: 01/02/2019 6:29 AM Note Text: ORTHOPAEDIC SURGERY DAILY PROGRESS NOTE Patient Name: Irene Nieto Date of Evaluation: 01/02/2019 Admission Date: 12/24/2018 Time of Evaluation: 6:25 AM ASSESSMENT: 53 year old male POD #?8 left arm radial and ulnar artery repair, L forearm volar fasciotomy, POD # 3 irrigation and debridement of left arm fasciotomy with application of wound vac PLAN: Pain Management:?Per pain management. Will need scripts at discharge. DVT prophylaxis: Lovenox 40 mg daily Diet Plan:?Diet regular Long arm splint in place- maintain, NWB LUE Dressing Management:?Wound vac in place with long arm splint OR today for repeat IANDD, secondary closure vs. Application of usp wound vac. Consent signed and in chart. NPO/IVF Discharge planning to home INTERVAL HPI: Patient monitored, no new events overnight. Well Controlled pain. Denies nausea/vomitting. OBJECTIVE: BP 134/67 Pulse 103 Temp 36.1 ?C (97 ?F) (Temporal Artery) Resp 16 Ht 172.7 cm (5' 8) Wt 109.3 kg (240 lb 15.4 oz) SpO2 93% BMI 36.64 kg/m? Intake/Output Summary (Last 24 hours) No intake/output data recorded. Exam: General: NAD, AAOx3 Extremities: Left Upper Extremity: Wound vac intact with good seal Minimal sensation to all fingertips Motor intact with minimal motion all fingers, improving Hand warm with brisk capillary refill to all digits Labs: CBC: WBC 10.66 01/01/2019 HGB 8.1 01/01/2019 Hematocrit 25.8 01/01/2019 Platelet Count 297 01/01/2019 BMP: Sodium 134 01/02/2019 Potassium 4.2 01/02/2019 Chloride 102 01/02/2019 CO2 26 01/02/2019 BUN 10 01/02/2019 Creatinine 0.71 01/02/2019 Glucose 128 01/02/2019 COAGS: APTT 48.2 12/30/2018 INR 1.01 12/25/2018 Yuliya Sargent MD PGY-IV, Orthopaedic Surgery [facility] Phone #: [phone] Please page [phone] after 5pm or if you need a prompt response 01/02/2019 6:25 AM Normal [facility] ALLIED HEALTHon 01-01-2019 ALLIED HEALTH HNO ID: [id number] Author: Chaplain Sky (Chaplain) Service: Spiritual Care Author Type: Leather Stitcher Type: Allied Health Filed: 01/01/2019 9:52 PM Note Text: SPIRITUAL CARE PROGRESS NOTE SERVICE DATE: 01/01/2019 SERVICE TIME: 9PM Pre Surgical visit. Visit and prayer with patient. He was thankful. To contact the Spiritual Care Department: Please call [phone]. SIGNATURE: Chaplain Jose Daniel PATIENT NAME: Irene Nieto DATE: January 01, 2019 TIME: 9:50 PM PAGER/CONTACT #: [phone] Normal [facility] Basic Panelon 01-01-2019 Creatinine [Mass/Vol] 0.72 mg/dL Normal 0.67-1.17 [facility] Comment on above: Performed By: #### G FR #### [address] [address] Anion gap [Moles/Vol] 11 mmol/L Normal 8-16 [facility] Comment on above: Performed By: #### G FR #### [address] [place] [address] Calcium [Mass/Vol] 8.6 mg/dL Normal 8.5-10.1 [facility] Comment on above: Performed By: #### G FR #### [facility] [address] [place], [place] [address] CO2 [Moles/Vol] 25 mmol/L Normal 21-32 [facility] Comment on above: Performed By: #### G FR #### [facility] [address] [place], [place] [address] Glucose [Mass/Vol] 104 mg/dL High 70-99 [facility] Comment on above: Performed By: #### G FR #### [facility] [address] [place] [address] Urea nitrogen [Mass/Vol] 11 mg/dL Normal 7-18 [facility] Comment on above: Performed By: #### G FR #### [facility] [address] [place] [address] Chloride [Moles/Vol] 102 mmol/L Normal 98-107 [facility] Comment on above: Performed By: #### G FR #### [facility] [address] [place], [place] [address] Potassium [Moles/Vol] 4.0 mmol/L Normal 3.5-5.1 [facility] Comment on above: Performed By: #### G FR #### [place] [address] Sodium [Moles/Vol] 134 mmol/L Low 136-145 [facility] Comment on above: Performed By: #### G FR #### [address] [address] CASE MANAGEMon 01-01-2019 CASE MANAGEM HNO ID: [id number] Author: Zarina (Rn) SCOTTY Bone Service: Care Management Author Type: Registered Nurse Type: Care Mgt Progress Note Filed: 01/01/2019 2:02 PM Note Text: CARE MANAGEMENT PROGRESS NOTE SERVICE DATE: 01/01/2019 SERVICE TIME: 1:59 PM LOS: 7 days Needs Prior to Discharge: Discharge Prescriptions;To Be Determined Met with pt to discuss potential disch needs. Pt's states until surgery Fri he is unsure of dc needs. Prefers to return home. He is from the [facility] and would need home care or PT from [facility]. Will cont to follow for transitional care needs after surgery Fri. DATE: January 01, 2019 TIME: 1:59 PM PAGER/CONTACT #: [phone] Normal [facility] Hemogram/Diffon 01-01-2019 Abs Immature Grans 0.84 thou/cmm High 0.00-0.05 [facility] Comment on above: Performed By: #### P 8 #### [place] [address] Abs Neut (ANC) 7.76 thou/cmm High 1.78-5.38 [facility] Comment on above: Performed By: #### P 8 #### [place] [address] Abs. Baso 0.06 thou/cmm Normal 0.01-0.08 [facility] Comment on above: Result Comment: Smea r scanned; tech agrees with automated differential Performed By: #### P 8 #### [place] [address] Abs. Vigo 0.87 thou/cmm High 0.30-0.82 [facility] Comment on above: Performed By: #### P 8 #### [address] [address] Basophils/100 WBC (Bld) 0.6 % Normal [facility] Comment on above: Performed By: #### P 8 #### [address] [address] Eosinophils (Bld) [#/Vol] 0.06 thou/cmm Normal 0.04-0.54 [facility] Comment on above: Performed By: #### P 8 #### [place] [id number] Eosinophils/100 WBC (Bld) 0.6 % Normal [place] [employer] [facility] Comment on above: Performed By: #### P 8 #### [address] [address] Immature Grans 7.90 % Normal [facility] Comment on above: Performed By: #### P 8 #### [facility] [address] [place] [address] Lymphocytes (Bld) [#/Vol] 1.06 thou/cmm Normal 0.84-2.85 [facility] Comment on above: Performed By: #### P 8 #### [facility] [address] [place], [place] [address] Lymphocytes/100 WBC (Bld) 9.9 % Normal [facility] Comment on above: Performed By: #### P 8 #### [facility] [address] [place] [address] Monocytes/100 WBC (Bld) 8.2 % Normal [facility] Comment on above: Performed By: #### P 8 #### [facility] [address] [place] [address] Seg Neutrophil 72.8 % Normal [facility] Comment on above: Performed By: #### P 8 #### [facility] [address] [place] [address] Erythrocyte distribution width (RBC) [Ratio] 14.9 % High 11.6-14.4 [facility] Comment on above: Performed By: #### P 8 #### [facility] [address] [place] [address] Hematocrit (Bld) [Volume fraction] 25.8 % Low 40.1-51.0 [facility] Comment on above: Performed By: #### P 8 #### [facility] [address] [place] [address] Hemoglobin (Bld) [Mass/Vol] 8.1 g/dL Low 13.7-17.5 [facility] Comment on above: Performed By: #### P 8 #### [facility] [address] [place] [address] MCH (RBC) [Entitic mass] 26.4 pg Normal 25.7-32.2 [facility] Comment on above: Performed By: #### P 8 #### [facility] [address] [place] [address] MCHC (RBC) [Mass/Vol] 31.4 % Low 32.3-36.5 [facility] Comment on above: Performed By: #### P 8 #### [facility] [address] [place], [place] [address] MCV (RBC) [Entitic vol] 84.0 fL Normal 83.2-95.6 [facility] Comment on above: Performed By: #### P 8 #### [facility] [address] [place] [address] Nucleated RBC (Bld) [#/Vol] 0.02 thou/cmm High 0.00-0.01 [facility] Comment on above: Performed By: #### P 8 #### [facility] [address] [place] [address] Nucleated RBC/100 WBC (Bld) [Ratio] 0.2 % Normal 0.0-0.2 [facility] Comment on above: Performed By: #### P 8 #### [facility] [address] [place] [address] Platelet mean volume (Bld) [Entitic vol] 9.9 fL Normal 8.7-12.0 [facility] Comment on above: Performed By: #### P 8 #### [facility] [address] [place] [address] Platelets (Bld) [#/Vol] 297 thou/cmm Normal 141-365 [facility] Comment on above: Performed By: #### P 8 #### [facility] [address] [place] [address] RBC (Bld) [#/Vol] 3.07 mil/cmm Low 4.63-6.08 [facility] Comment on above: Performed By: #### P 8 #### [facility] [address] [place] [address] RDW SD 44.6 fl Normal 36.1-45.8 [facility] Comment on above: Performed By: #### P 8 #### [facility] [address] [place] [address] WBC (Bld) [#/Vol] 10.66 thou/cmm High 4.23-9.07 [facility] Comment on above: Performed By: #### P 8 #### [facility] [address] [place] [address] NURSING PROGon 01-01-2019 NURSING PROG HNO ID: [id number] Author: Angela (Rn) SCOTTY Toussaint Service: ? Author Type: Registered Nurse Type: Nursing Progress Note Filed: 01/01/2019 5:05 PM Note Text: Report called to Esther FAJARDO. Patient to be transferred to [facility]. Patient notified of transfer. Normal [facility] PROGRESSon 01-01-2019 PROGRESS HNO ID: [id number] Author: Natalee Avina Service: Pain Management Author Type: Physician Type: Progress Notes Filed: 01/01/2019 1:17 PM Note Text: PAIN CONSULTATION: Left arm pain;left arm radial and ulnar artery injury s/p POD5 repair, left forearm compartment syndrome s/p POD5 L forearm volar fasciotomy IRENE NIETO 53 year old 24 HOUR COMFORT MEDICATIONS: Acetaminophen 975 mg ? Gabapentin discontinued due to side effects; doesn't like how it made him feel Hydromorphone 1 mg IV ? none Dilaudid 4 mg by mouth ? 4 ? GI regimen Senna?S twice a day Pain Description: some concerns about hallucinations with Dilaudid. Main symptom is throbbing spasms of his left upper extremity. Intermittent sleep Interval HPI: stable overnight 12/30 irrigation and debridement of left forearm fasciotomy with application of wound VAC per Ortho Subjective HPI: 53-year-old male, transferred from [facility] on 12/25/2018 secondary to avascular injury to his left upper extremity after a single incision distal biceps repair earlier that day. Approximately one week prior to his initial presentation, while constructing a pleural, the patient felt a sudden pop in his left arm, resulting in a rupture of his left distal biceps while lifting a heavy box. On the day of presentation, he underwent a left biceps repair with arthritis tendon button and screw. However, following that procedure he developed paresthesias in his left arm on the dorsal and volar aspects down to his fingers, and was unable to flex, extend his elbow, wrists, fingers, and there was concern that there was a brachial artery injury as a result of the surgery itself. He was taken emergently to the operating room from the emergency department here, where he underwent repair of the left radial artery, reimplantation of the left ulnar artery, left upper extremity fasciotomy and carpal tunnel release as well as a fasciotomy of the left forearm. During that surgery was identified that he had a laceration at the bifurcation of the ulnar and brachial arteries with compartment syndrome. His [place] prescription history is unremarkable except for one prescription for Nuvigil, and one prescription for [place]. 11/29/2018 1 11/28/2018 Armodafinil 150 MG Tablet 30 30 Pa Tri [id number] [place] ([id number]) 0 Private Pay [place] 11/25/2018 1 11/25/2018 Hydrocodone-Acetamin 5-325 MG 10 3 Da Barbi [id number] [place] ([id number]) 0 16.67 MME Comm Ins [place] Current Facility-Administered Medications Medication Dose Route Frequency Provider Last Rate Last Dose - cyclobenzaprine 5 mg tab(s) (FLEXERIL) 5 mg ORAL TID PRN Natalee K Scantling - oxyCODONE IR 10 mg tab(s) (ROXICODONE) 10 mg ORAL q 3 H PRN Natalee K Scantling - oxyCODONE IR 15 mg tab(s) (ROXICODONE) 15 mg ORAL q 3 H PRN Natalee K Scantling - senna-docusate 8.6-50 mg 2 tablet (SENNA-S) 2 tablet ORAL BID Natalee K Scantling 2 tablet at 01/01/19 0927 - enoxaparin 40 mg injection (LOVENOX) 40 mg SUBCUTANEOUS q 24 HR Todd Hieb 40 mg at 01/01/19 1150 - HYDROmorphone 1-1.5 mg injection (DILAUDID) 1-1.5 mg INTRAVENOUS q 3 H PRN Natalee K Scantling 1 mg at 01/01/19 1216 - therapeutic multivitamin with iron (THERAGRAN-M) 1 tablet ORAL DAILY Edin (Res) Klaudia 1 tablet at 01/01/19926 - sodium chloride 0.65 % 2 [place] (AYR, OCEAN) 2 [place] EACH NOSTRIL PRN Edin (Res) Klaudia - polyethylene glycol 3350 17 g packet (MIRALAX, GLYCOLAX) 17 g ORAL DAILY PRN Christopher (Res) Pinkowski 17 g at 01/01/19 0927 - bisacodyl 10 mg suppository (DULCOLAX) 10 mg RECTAL DAILY PRN Christopher (Res) Pinkowski - acetaminophen 975 mg tab(s) (TYLENOL) 975 mg ORAL q 6 H Christopher (Res) Pinkowski 975 mg at 01/01/19 1150 - potassium chloride 80-120 mEq oral liquid 80-120 mEq ORAL/FEEDING TUBE PRN Christopher (Res) Pinkowski - potassium chloride iv piggyback 20 mEq/100 mL 20 mEq INTRAVENOUS PRN Christopher (Res) Pinkowski - magnesium sulfate in water 2 g in sterile water 50 ml 2 g INTRAVENOUS PRN Christopher (Res) Pinkowski - sodium phosphate 45 mmol in NaCl 0.9% 250 mL 45 mmol INTRAVENOUS PRN Christopher (Res) Pinkowski - calcium gluconate 4 g in NaCl 0.9% 250 mL 4 g INTRAVENOUS PRN Christopher (Res) Pinkowski - ondansetron 4 mg tab(s) (ZOFRAN) 4 mg ORAL q 6 H PRN Christopher (Res) Pinkowski Or - ondansetron (PF) 4 mg injection (ZOFRAN) 4 mg INTRAVENOUS q 6 H PRN Christopher (Res) Pinkowski 4 mg at 01/01/19 0824 - hydrALAZINE 10 mg injection (APRESOLINE) 10 mg INTRAVENOUS q 4 H PRN Christopher (Res) Pinkowski 10 mg at 12/30/18 0749 - famotidine 20 mg tab(s) (PEPCID) 20 mg ORAL BID Christopher (Res) Pinkowski 20 mg at 01/01/19 0927 - metoprolol 5 mg injection (LOPRESSOR) 5 mg INTRAVENOUS q 6 H PRN Christopher (Res) Pinkowski 5 mg at 12/30/18 1928 Medications Prior to Admission: omeprazole (PRILOSEC) 20 mg capsule Take 20 mg by mouth once daily. Disp: Rfl: armodafinil (NUVIGIL) 150 mg tab Take 75 mg by mouth once daily. For shift work disorder Disp: Rfl: Social History Socioeconomic History Marital status: Spouse name: Not on file Number of children: Not on file Years of education: Not on file Highest education level: Not on file Social Needs Financial resource strain: Not on file Food insecurity - worry: Not on file Food insecurity - inability: Not on file Transportation needs - medical: Not on file Transportation needs - non-medical: Not on file Occupational History Not on file Tobacco Use Smoking status: Never Smoker Smokeless tobacco: Never Used Substance and Sexual Activity Alcohol use: No Drug use: No Sexual activity: Not on file Other Topics Concerns: Not on file Social History Narrative Not on file No family history on file. PAST SURGICAL HISTORY Procedure Laterality Date - PAST SURGICAL HISTORY OF left knee ROS: All of the following reviewed and negative except as noted below: GENERAL: no fever, chills, sweats, weight gain of 20-30 lbs, also associated fatigue, generalized weakness HEENT: no headache, vision changes, eye discomfort, hearing change, ear discomfort, sinus pain, nasal discharge or congestion, oral lesions, soreness, dental problem NECK: no adenopathy, discomfort, change in ROM CHEST: no shortness of breath, dyspnea on exertion, wheezing, cough, sputum production or chest pain HEART: no chest pain, palpitations, syncope ABDOMEN: no nausea, vomiting, constipation, diarrhea, abdominal pain : no dysuria, urgency, frequency, history of stones, incontinence NEURO: no confusion or alteration in consciousness, slurred speech, seizure, focal weakness EXTREMITIES: no new pain, but diffuse edema, see also history of present illness HEME: no new adenopathy, bruises, petechiae PSYCH: no depression, anxiety, agitation PHYSICAL EXAMINATION: see below for new or abnormal findings BP 156/81 Pulse 91 Temp 36.6 ?C (97.9 ?F) (Temporal) Resp 18 Ht 172.7 cm (5' 8) Wt 109.3 kg (240 lb 15.4 oz) SpO2 93% BMI 36.64 kg/m? BMI 36.64 kg/(m2) Date 12/29/18699 - 12/30/18 0659 Shift 1960-4024 9357-4540 2221-5743 24 Hour Total INTAKE PO 360 360 IV 34.6 34.6 Shift Total 394.6 394.6 OUTPUT Urine 325 325 Shift Total 325 325 Weight (kg) 109.6 109.6 109.6 109.6 Date 12/28/181499 - 12/29/1859 12/29/186[address] - 12/30/18 0659 Shift 5494-6293 7992-9915 24 Hour Total 3853-6288 7881-1828 2601-2793 24 Hour Total INTAKE PO 688 990 2399 360 360 PO 227 690 8995 360 360 IV 217 217 34.6 34.6 Heparin IV 217 217 34.6 34.6 Shift Total 649 080 1764 394.6 394.6 OUTPUT Urine 4456 124 3922 325 325 Void (ml) 6879 077 6068 325 325 Shift Total 5749 047 9298 325 325 Weight (kg) 109.2 109.6 109.6 109.6 109.6 109.6 109.6 GENERAL: well nourished and developed; no acute distress; alert and oriented x 3; intact judgement and insight HEENT: no evidence of trauma; cranial nerves intact; eyes clear EOMI; no hearing deficits apparent; nasal passages unremarkable; throat and mucous membranes clear NECK: supple without lymphadenopathy; no JVD; no thyromegaly CHEST: clear bilaterally to auscultation; normal chest movement; no rales or rhonchi HEART: regular rate and rhythm, normal S1 and S2, no murmurs, clicks, rubs, or gallops ABDOMEN: soft; nondistended; bowel sounds present; no hepatomegaly; no splenomegaly; no tenderness EXTREMITIES: no evidence of clubbing; no cyanosis; no deformity; no joint effusion; his left arm is extensively wrapped, fingers appeared to be unremarkable.able to move fingers NEURO: cranial nerves intact; no focal deficits; no confusion; no tremor; sensorium normal SKIN: no rash; no skin breakdown; no decubitus lesions HEME: no bruising; no adenopathy PSYCH: no evidence of depression; no anxiety; no agitation; no apparent hallucinations PAIN PSYCHIATRIC EXAM: GENERAL: alert, oriented to person, place, time JUDGMENT AND INSIGHT: intact APPEARANCE: neatly groomed DEMEANOR: coooperative, not hostile, mistrustful, preoccupied, or demanding ACTIVITY: normal, not hyperactive or hypoactive, no tremors, tics EYE CONTACT: normal SPEECH: normal, rate, volume, articulation, coherence, spontaneity MOOD: normal, without overt sadness, grief, anxiety, appropriate to situation IDEATION: normal and without suicidal or homicidal ideation MEMORY: intact ABNORMAL/NEW FINDINGS: NONE RADIOLOGY/DIAGNOSTICS: LABORATORY: CBC: Recent Labs 01/01/19 0625 WBC 10.66* RBC 3.07* HB 8.1* HCT 25.8* PLT 297 MCV 84.0 MCH 26.4 MPV 9.9 RDW 14.9* CMP: Recent Labs 01/01/19 0625 NA 134* K 4.0 CHLOR 102 CO2 25 BUN 11 CREAT 0.72 GLUC 104* CA 8.6 ANION 11 Heme: No results for input(s): RETICP, ABSRETIC, LD, FRANCK, FE, TIBC, TRANSFERSAT in the last 24 hours. ASSESSMENT ACTIVE PROBLEM LIST Other and Unspecified Hyperlipidemia Essential hypertension, benign Degeneration of Intervertebral Disc, Site Unspecified Lumbago Tendonitis of Ankle Dilcia (Obstructive Sleep Apnea) Rhinitis Obesity, Class I, Bmi 30-34.9 Injury of Radial Artery At Forearm Level, Left, Initial Encounter Limb Ischemia Obesity, Class II, Bmi 35-39.9 PLAN: Left arm pain, status post repair of ruptured left biceps, status post repair of laceration at bifurcation of left radial and left ulnar artery, status post compartment syndrome?status post fasciotomy Status post irrigation and debridement of left forearm fasciotomy with application of wound VAC 12/29 Opiate naive prior to presentation. Changed a lot and oral oxycodone 10-15 mg by mouth every 3 hours when necessary moderate or severe pain. Patient given a dose of Zanaflex this morning but did not like how it made him feel. We will try Flexeril 5 mg by mouth 3 times a day as needed Dilaudid to 1-1.5 mg IV every 3 hours as needed for breakthrough pain- did not use yesterday Senna S 2 tabs by mouth twice a day Anticipate will require opiates beyond this prescription, and anticipate need for opiate prescription at discharge. Natalee Avina MD [facility] PROGRESS HNO ID: [id number] Author: Bonnie Guo Service: Vascular Surgery Author Type: Physician Type: Progress Notes Filed: 01/09/2019 6:04 PM Note Text: Vascular Progress Note SERVICE DATE: 01/01/2019 Vascular AND Thoracic Surgery Service Pager: For questions or concerns Mon-Fri 6a-5p please page [phone]. After 5pm and on Weekends and Holidays, please page [phone] if in ICU or [phone] if on RNF. Subjective SUBJECTIVE: Pt feels well. Pain controled. Still appears sad. Moving left 2,3,4 fingers. Denies N/V/CP/SOB Diet: DIET REGULAR DIET NPO Objective OBJECTIVE: Vitals: BP 162/80 Pulse 98 Temp (Src) 98.8 (Temporal Artery) Resp 18 Ht 5' 8 (1.73m) Wt 240 lb 15.4 oz (109.3kg) SpO2 96% BMI 36.65 kg/(m2). O2 Therapy: Room Air Temp (24hrs), Av.9 ?C (98.4 ?F), Min:36.2 ?C (97.2 ?F), Max:37.4 ?C (99.3 ?F) O2 Therapy: Room Air IANDO: Date 12/31/18 07 - 01/01/19 0659 01/01/19 07 - 01/02/19 0659 Shift 8499-3860 2260-8547 9813-7530 24 Hour Total 3033-4353 2673-8261 2124-8334 24 Hour Total INTAKE PO 500 500 PO 500 500 Shift Total 500 500 OUTPUT Urine 559 837 2808 2600 Void (ml) 134 619 7852 2600 Urine Not Saved. 1 x 1 x # of BMs Number of BMs 1 x 1 x Shift Total 087 169 9267 2600 Weight (kg) 109.3 109.3 109.3 109.3 109.3 109.3 109.3 109.3 MEDICATIONS Current Facility-Administered Medications Medication Dose Route Frequency - senna-docusate 8.6-50 mg 2 tablet (SENNA-S) 2 tablet ORAL BID - enoxaparin 40 mg injection (LOVENOX) 40 mg SUBCUTANEOUS q 24 HR - HYDROmorphone 1-1.5 mg injection (DILAUDID) 1-1.5 mg INTRAVENOUS q 3 H PRN - therapeutic multivitamin with iron (THERAGRAN-M) 1 tablet ORAL DAILY - HYDROmorphone 4 mg tab(s) (DILAUDID) 4 mg ORAL q 3 H PRN - HYDROmorphone 6 mg tab(s) (DILAUDID) 6 mg ORAL q 4 H PRN - sodium chloride 0.65 % 2 [place] (AYR, OCEAN) 2 [place] EACH NOSTRIL PRN - polyethylene glycol 3350 17 g packet (MIRALAX, GLYCOLAX) 17 g ORAL DAILY PRN - bisacodyl 10 mg suppository (DULCOLAX) 10 mg RECTAL DAILY PRN - acetaminophen 975 mg tab(s) (TYLENOL) 975 mg ORAL q 6 H - potassium chloride 80-120 mEq oral liquid 80-120 mEq ORAL/FEEDING TUBE PRN - potassium chloride iv piggyback 20 mEq/100 mL 20 mEq INTRAVENOUS PRN - magnesium sulfate in water 2 g in sterile water 50 ml 2 g INTRAVENOUS PRN - sodium phosphate 45 mmol in NaCl 0.9% 250 mL 45 mmol INTRAVENOUS PRN - calcium gluconate 4 g in NaCl 0.9% 250 mL 4 g INTRAVENOUS PRN - ondansetron 4 mg tab(s) (ZOFRAN) 4 mg ORAL q 6 H PRN Or - ondansetron (PF) 4 mg injection (ZOFRAN) 4 mg INTRAVENOUS q 6 H PRN - Chlorhexidine Gluconate 0.12 % 15 mL (PERIDEX) 15 mL ORAL q 12 H - hydrALAZINE 10 mg injection (APRESOLINE) 10 mg INTRAVENOUS q 4 H PRN - famotidine 20 mg tab(s) (PEPCID) 20 mg ORAL BID - metoprolol 5 mg injection (LOPRESSOR) 5 mg INTRAVENOUS q 6 H PRN Labs: Recent Labs 01/01/19 0625 12/31/18 0543 12/30/18 0400 NA -- 139 138 K -- 4.1 3.7 CHLOR -- 106 105 CO2 -- 26 25 BUN -- 17 16 CREAT -- 0.68 0.70 GLUC -- 116* 100* ANION -- 11 12 CA -- 8.0* 8.4* WBC 10.66* 7.83 8.32 HB 8.1* 7.2* 8.0* HCT 25.8* 22.8* 25.1* PLT 297 223 213 No results for input(s): BODSITE, CTYPE, PH, PCO2, PO2, BE, HCO3, CO2CT, O2HB, COHB, MHGB, TEMP, PHTC, PCO2T, PO2T, O2AD in the last 72 hours. Exam: GENERAL: Alert, no distress, cooperative SKIN: Skin color, texture, turgor normal. No rashes or lesions. LUNGS: Unlabored breathing on O2 Therapy: Room Air on Liters: 3 sating at SpO2: 96 % CARDIAC: rate and rhythm as above, ABDOMEN: Benign, Soft, non-tender, No masses, hepatosplenomegaly and No lymphadenopathy EXTREMITIES: ROM of all joint grossly normal: strength grossly normal bilaterally. No deformities noted. and LUE radial artery covered with dressing. Hand appears warm. WOUND: clean, dry and intact dressing ASSESSMENT AND PLAN: Assessment/Plan This is a 53 year old male?s/p Exploration of LUE, repair of L radial artery, re-implation of L ulnar artery, LUE fasciotomy and carpal tunnel release. ?Repeat IANDD in [place] 12/27 AM. ? - reg diet - Pain control - prn lopressor for BP control - No further vascular intervention at this time - transfer to floor ? Assessment and plan discussed with attending: ?Sari ? ? I saw and evaluated the patient. Discussed with the resident and agree with resident's findings and plan as documented in the resident's note. SIGNATURE: Todd Lugo MD PATIENT NAME: Irene Nieto DATE: January 01, 2019 TIME: 6:47 AM Pager: [phone] Normal [facility] PROGRESS HNO ID: [id number] Author: Mitchell Winter Service: Orthopaedic Surgery Author Type: Physician Type: Progress Notes Filed: 01/01/2019 12:25 PM Note Text: ORTHOPAEDIC SURGERY POSTOP DAILY PROGRESS NOTE Patient Name: Irene Nieto Date of Evaluation: 01/01/2019 Admission Date: 12/24/2018 Time of Evaluation: 5:57 AM ORTHO STAFF: Agree with resident assessment and plan noted below. Mitchell Winter MD ASSESSMENT: 53 year old male POD # 7 left arm radial and ulnar artery repair, L forearm volar fasciotomy, POD # 2 irrigation and debridement of left arm fasciotomy with application of wound vac PLAN: INITIAL POST-OP MANAGEMENT PLAN: Pain Management:?Per pain management DVT prophylaxis:?Per CVICU, ok for chemoppx per ortho if deemed necessary by vascular/crit care, no need for chemoppx per ortho Perioperative Antibiotics:?Ancef 2gs x2 doses completed Urinary Catheter?:No Diet Plan:?Diet regular Mobilization, Range of Motion, and Weight bearing:?Long arm splint in place- maintain, NWB LUE Dressing Management:?Wound vac in place with long arm splint Tentative plan for OR 01/02/2019 for repeat IANDD, secondary closure vs. Application of rat exterminator wound vac. Consent signed and in chart. ? Est LOS AND Disch Destination:?TBD Any Other Issues??HTN, DILCIA, obesity Consults:?Critical care, Vascular surgery, Pain management INTERVAL HPI: Patient monitored, no new events overnight. Patient states that they are comfortable. Well Controlled pain. Denies nausea/vomitting. OBJECTIVE: BP 162/80 Pulse 100 Temp 37.1 ?C (98.8 ?F) (Temporal Artery) Resp 16 Ht 172.7 cm (5' 8) Wt 109.3 kg (240 lb 15.4 oz) SpO2 95% BMI 36.64 kg/m? Intake/Output Summary (Last 24 hours) 12/31 2300 - 01/01 0659 In: - Out: 900 [Urine:900] Exam: General: NAD, AAOx3 Extremities: Left Upper Extremity: Dressing and long arm splint in place, clean, dry, intact IF AROM flexion and extension- improved since last exam MF and LF flexion- improving Minimal sensation in radial, ulnar, median nerve distribution BCR Compartments soft, compressible. Tolerates passive stretch of digits. Labs: BMP: Sodium 139 12/31/2018 Potassium 4.1 12/31/2018 Chloride 106 12/31/2018 CO2 26 12/31/2018 BUN 17 12/31/2018 Creatinine 0.68 12/31/2018 Glucose 116 12/31/2018 CBC: WBC 7.83 12/31/2018 HGB 7.2 12/31/2018 Hematocrit 22.8 12/31/2018 Platelet Count 223 12/31/2018 COAGS: APTT 48.2 12/30/2018 INR 1.01 12/25/2018 SED RATE/CRP: No results found for this basename: wsr:*,crp:* Imaging: no new images Edin Rudolph MD Resident, Orthopaedic Surgery Pager #: [phone] 01/01/2019 5:57 AM Please page [phone] from 5p-6a and on weekends for any issues. Normal [facility] Basic Panelon 12-31-2018 Creatinine [Mass/Vol] 0.68 mg/dL Normal 0.67-1.17 [facility] Comment on above: Performed By: #### P 8 #### [facility] [address] [place], [place] [address] Anion gap [Moles/Vol] 11 mmol/L Normal 8-16 [facility] Comment on above: Performed By: #### P 8 #### [facility] [address] [place], [place] [address] Calcium [Mass/Vol] 8.0 mg/dL Low 8.5-10.1 [facility] Comment on above: Performed By: #### P 8 #### [facility] [address] [place], [place] [address] CO2 [Moles/Vol] 26 mmol/L Normal 21-32 [facility] Comment on above: Performed By: #### P 8 #### [facility] [address] [place], [place] [address] Glucose [Mass/Vol] 116 mg/dL High 70-99 [facility] Comment on above: Performed By: #### P 8 #### [address] [address] Urea nitrogen [Mass/Vol] 17 mg/dL Normal 7-18 [facility] Comment on above: Performed By: #### P 8 #### [facility] [address] [place], [place] [address] Chloride [Moles/Vol] 106 mmol/L Normal 98-107 [facility] Comment on above: Performed By: #### P 8 #### [facility] [address] [place], [place] [address] Potassium [Moles/Vol] 4.1 mmol/L Normal 3.5-5.1 [facility] Comment on above: Performed By: #### P 8 #### [facility] [address] [place], [place] [address] Sodium [Moles/Vol] 139 mmol/L Normal 136-145 [facility] Comment on above: Performed By: #### P 8 #### [address] [address] CASE MANAGEMon 12-31-2018 CASE MANAGEM HNO ID: [id number] Author: Zarina CharlesRn) SCOTTY Bone Service: Care Management Author Type: Registered Nurse Type: Care Mgt Progress Note Filed: 12/31/2018 9:53 AM Note Text: CARE MANAGEMENT PROGRESS NOTE SERVICE DATE: 12/31/2018 SERVICE TIME: 9:49 AM LOS: 6 days Needs Prior to Discharge: Discharge Prescriptions;To Be Determined For planned surgery on 01/02 with poss wound vac. [facility] notified of poss wound vac at [facility]. Blank wound vac order form on front of chart for MD to sign/complete if needed. Will cont to follow for transitional care needs. SIGNATURE: Zarina Bone RN PATIENT NAME: Irene Nieto DATE: December 31, 2018 TIME: 9:49 AM PAGER/CONTACT #: [phone] Normal [facility] Hemogram/Diffon 12-31-2018 Abs Immature Grans 0.34 thou/cmm High 0.00-0.05 [facility] Comment on above: Performed By: #### P 8 #### [place] [address] Abs Neut (ANC) 5.80 thou/cmm High 1.78-5.38 [facility] Comment on above: Performed By: #### P 8 #### [place] [address] Abs. Baso 0.01 thou/cmm Normal 0.01-0.08 [facility] Comment on above: Performed By: #### P 8 #### [place] [address] Abs. Vigo 0.73 thou/cmm Normal 0.30-0.82 [facility] Comment on above: Performed By: #### P 8 #### [place] [address] Basophils/100 WBC (Bld) 0.1 % Normal [facility] Comment on above: Performed By: #### P 8 #### [place] [address] Eosinophils (Bld) [#/Vol] 0.04 thou/cmm Normal 0.04-0.54 [facility] Comment on above: Performed By: #### P 8 #### [place] [address] Eosinophils/100 WBC (Bld) 0.5 % Normal [facility] Comment on above: Performed By: #### P 8 #### [facility] [address] [place] [address] Immature Grans 4.30 % Normal [facility] Comment on above: Performed By: #### P 8 #### [facility] [address] [place] [address] Lymphocytes (Bld) [#/Vol] 0.92 thou/cmm Normal 0.84-2.85 [facility] Comment on above: Performed By: #### P 8 #### [facility] [address] [place] [address] Lymphocytes/100 WBC (Bld) 11.7 % Normal [facility] Comment on above: Performed By: #### P 8 #### [facility] [address] [place] [address] Monocytes/100 WBC (Bld) 9.3 % Normal [facility] Comment on above: Performed By: #### P 8 #### [facility] [address] [place] [address] Seg Neutrophil 74.1 % Normal [facility] Comment on above: Performed By: #### P 8 #### [facility] [address] [place] [address] Erythrocyte distribution width (RBC) [Ratio] 15.0 % High 11.6-14.4 [facility] Comment on above: Performed By: #### P 8 #### [facility] [address] [place] [address] Hematocrit (Bld) [Volume fraction] 22.8 % Low 40.1-51.0 [facility] Comment on above: Performed By: #### P 8 #### [facility] [address] [place] [address] Hemoglobin (Bld) [Mass/Vol] 7.2 g/dL Low 13.7-17.5 [facility] Comment on above: Performed By: #### P 8 #### [facility] [address] [place] [address] MCH (RBC) [Entitic mass] 26.6 pg Normal 25.7-32.2 [facility] Comment on above: Performed By: #### P 8 #### [facility] [address] [place], [place] [address] MCHC (RBC) [Mass/Vol] 31.6 % Low 32.3-36.5 [facility] Comment on above: Performed By: #### P 8 #### [facility] [address] [place], [place] [address] MCV (RBC) [Entitic vol] 84.1 fL Normal 83.2-95.6 [facility] Comment on above: Performed By: #### P 8 #### [facility] [address] [place], [place] [address] Nucleated RBC (Bld) [#/Vol] 0.03 thou/cmm High 0.00-0.01 [facility] Comment on above: Performed By: #### P 8 #### [facility] [address] [place], [place] [address] Nucleated RBC/100 WBC (Bld) [Ratio] 0.4 % High 0.0-0.2 [facility] Comment on above: Performed By: #### P 8 #### [facility] [address] [place], [place] [address] Platelet mean volume (Bld) [Entitic vol] 10.8 fL Normal 8.7-12.0 [facility] Comment on above: Performed By: #### P 8 #### [facility] [address] [place], [place] [address] Platelets (Bld) [#/Vol] 223 thou/cmm Normal 141-365 [facility] Comment on above: Performed By: #### P 8 #### [facility] [address] [place], [place] [address] RBC (Bld) [#/Vol] 2.71 mil/cmm Low 4.63-6.08 [facility] Comment on above: Performed By: #### P 8 #### [facility] [address] [place], [place] [address] RDW SD 45.8 fl Normal 36.1-45.8 [facility] Comment on above: Performed By: #### P 8 #### [facility] [address] [place], [place] [address] WBC (Bld) [#/Vol] 7.83 thou/cmm Normal 4.23-9.07 [facility] Comment on above: Performed By: #### P 8 #### [facility] [address] [place], [place] [address] NURSING PROGon 12-31-2018 NURSING PROG HNO ID: [id number] Author: Rui CharlesRn) SCOTTY Haas Service: Nursing Author Type: Registered Nurse Type: Nursing Progress Note Filed: 12/31/2018 6:33 AM Note Text: Nursing Progress Note Patient Name: Irene Nieto Patient Location: [place] [address] [address] * Daily Note:Dr. Lugo at bedside. Verbal order given to remove arterial line. 06 Dr. Rudolph at bedside. This note was completed by: Rui Haas RN [facility] NUTRITIONon 12-31-2018 NUTRITION HNO ID: [id number] Author: Fidelia Helm RD Service: Nutrition Therapy Author Type: Registered Dietitian Type: Nutrition Filed: 12/31/2018 2:15 PM Note Text: NUTRITION THERAPY INITIAL ASSESSMENT SERVICE DATE: 12/31/2018 SERVICE TIME: 9:51 AM RECOMMENDED MALNUTRITION DIAGNOSIS: NO MALNUTRITION IDENTIFIED NUTRITION CARE PLAN: Problem, Etiology and Signs/Symptoms: Increased nutrient needs kcal/protein related to increased metabolic demand from surgery as evidenced by multiple forearm surgeries Intervention: Continue on Regular diet Family bringing meals from home Coordination of Care: Nursing Monitor and Evaluation: Goal: Meet >75% of estimated needs Monitor fluid/electrolyte balance Monitor labs, I/Os, vital signs, weight Discharge Nutrition Recommendations: Diet: Regular --- Chart reviewed for length of stay Per HPI: 53 yo male presented from [place] underwent there a left bicep repair, transferred to [facility] for brachial artery injury. Underwent surgery for left carpal tunnel release and decompressive fasciotomy, left volar forearm. Underwent on 12/27/18 IAND D left forearm. Pending need for repeat IANDD and possible grafting. ACTIVE PROBLEM LIST Other and Unspecified Hyperlipidemia Essential hypertension, benign Degeneration of Intervertebral Disc, Site Unspecified Lumbago Tendonitis of Ankle Dilcia (Obstructive Sleep Apnea) Rhinitis Obesity, Class I, Bmi 30-34.9 Injury of Radial Artery At Forearm Level, Left, Initial Encounter Limb Ischemia Obesity, Class II, Bmi 35-39.9 PAST MEDICAL HISTORY Diagnosis Date - Essential hypertension, benign - Injury of brachial artery, initial encounter 12/24/2018 - Lumbago - Obstructive sleep apnea PAST SURGICAL HISTORY Procedure Laterality Date - PAST SURGICAL HISTORY OF left knee Social History Socioeconomic History Marital status: Spouse name: Not on file Number of children: Not on file Years of education: Not on file Highest education level: Not on file Social Needs Financial resource strain: Not on file Food insecurity - worry: Not on file Food insecurity - inability: Not on file Transportation needs - medical: Not on file Transportation needs - non-medical: Not on file Occupational History Not on file Tobacco Use Smoking status: Never Smoker Smokeless tobacco: Never Used Substance and Sexual Activity Alcohol use: No Drug use: No Sexual activity: Not on file Other Topics Concerns: Not on file Social History Narrative Not on file Orders Placed This Encounter DIET REGULAR Standing Status: Standing Number of Occurrences: 1 Order Specific Question: Feeding instructions for nursing Answer: Advance as tolerated Lines and Drains: Peripheral 12/25/18 0200 Assessment Right Hand 20 Gauge (Active) Nutritional Intake Prior to Admission: >75% estimated energy needs over the past >12 month(s), was eating well and tolerating po prior to admission GI symptoms: constipation, last BM [employer] Nutrition Abdominal Exam:, abdomen is nondistended and bowel sounds are hypoactive ANTHROPOMETRICS Height: 172.7 cm (5' 8) Admission Weight: 99.8 kg (220 lb) Current Weight: 109.3 kg (240 lb 15.4 oz) Body mass index is 36.64 kg/m?. class 2 obesity Weight has increased by 9.9 kg over 1 months representing 9 % weight change Last Wt 12/30/18 : 109.3 kg (240 lb 15.4 oz) 11/23/18 : 99.4 kg (219 lb 3.2 oz) 09/30/18 : 99.9 kg (220 lb 3.2 oz) 07/04/11 : 94.3 kg (208 lb) 01/31/11 : 87.1 kg (192 lb) 01/15/11 : 89.4 kg (197 lb) 12/12/10 : 90.7 kg (200 lb) 09/28/10 : 91.2 kg (201 lb) 09/04/10 : 93 kg (205 lb) 08/14/10 : 90.7 kg (200 lb) 06/13/10 : 90.7 kg (200 lb) 06/12/10 : 92.5 kg (204 lb) 04/24/10 : 90.7 kg (200 lb) 03/15/10 : 88.9 kg (196 lb) 05/20/09 : 92.1 kg (203 lb) 12/03/08 : 85.7 kg (189 lb) 05/19/08 : 89.8 kg (198 lb) 03/24/08 : 90.3 kg (199 lb) 02/17/08 : 88.5 kg (195 lb) 02/10/08 : 86.6 kg (191 lb) [place] Body Weight: 70kg Resting Metabolic Rate: 1905 Estimated kilocalorie needs: 8397-8781 kilocalories determined by 25-30 kcal/kg Estimated protein needs: 84-105 grams determined by 1.2-1.5 g/kg [place] weight Estimated fluid needs: 0784-1711 milliliters based on 1 mL per kcal NUTRITION FOCUSED PHYSICAL EXAM: Subcutaneous Fat Loss Orbital No fat loss Triceps No fat loss Mid-axillary at the iliac crest No fat loss Muscle Loss Locations: Temporalis No muscle loss Pectoralis No muscle loss Deltoids No muscle loss Interosseous No muscle loss Latissimus dorsi, trapezius No muscle loss Quadriceps No muscle loss Gastrocnemius No muscle loss Potential micronutrient deficiency revealed in: No deficiency identified Edema: Yes Generalized Ascites: No Assessment of Functional Status: No functional impairment, normal with no limitations prior to admission Temperature Max in 24 hours: Temp (24hrs), Av.1 ?C (98.7 ?F), Min:36.5 ?C (97.7 ?F), Max:37.6 ?C (99.7 ?F) BP 125/67 Pulse 90 Temp 36.6 ?C (97.9 ?F) (Temporal) Resp 16 Ht 172.7 cm (5' 8) Wt 109.3 kg (240 lb 15.4 oz) SpO2 96% BMI 36.64 kg/m? Recent Labs 12/31/18 0543 GLUC 116* BUN 17 CREAT 0.68 NA 139 K 4.1 CHLOR 106 CO2 26 HB 7.2* HCT 22.8* WBC 7.83 Potential Signs of Inflammation: hyperglycemia and acute post-operative ALLERGIES Allergen Reactions - Sudafed [Pseudoephe* Other: See Comments Severe htn, elevated HR Current Facility-Administered Medications Medication Dose Route Frequency - enoxaparin 40 mg injection (LOVENOX) 40 mg SUBCUTANEOUS q 24 HR - HYDROmorphone 1-1.5 mg injection (DILAUDID) 1-1.5 mg INTRAVENOUS q 3 H PRN - therapeutic multivitamin with iron (THERAGRAN-M) 1 tablet ORAL DAILY - HYDROmorphone 4 mg tab(s) (DILAUDID) 4 mg ORAL q 3 H PRN - HYDROmorphone 6 mg tab(s) (DILAUDID) 6 mg ORAL q 4 H PRN - sodium chloride 0.65 % 2 [place] (AYR, OCEAN) 2 [place] EACH NOSTRIL PRN - senna-docusate 8.6-50 mg 1 tablet (SENNA-S) 1 tablet ORAL BID - polyethylene glycol 3350 17 g packet (MIRALAX, GLYCOLAX) 17 g ORAL DAILY PRN - bisacodyl 10 mg suppository (DULCOLAX) 10 mg RECTAL DAILY PRN - acetaminophen 975 mg tab(s) (TYLENOL) 975 mg ORAL q 6 H - potassium chloride 80-120 mEq oral liquid 80-120 mEq ORAL/FEEDING TUBE PRN - potassium chloride iv piggyback 20 mEq/100 mL 20 mEq INTRAVENOUS PRN - magnesium sulfate in water 2 g in sterile water 50 ml 2 g INTRAVENOUS PRN - sodium phosphate 45 mmol in NaCl 0.9% 250 mL 45 mmol INTRAVENOUS PRN - calcium gluconate 4 g in NaCl 0.9% 250 mL 4 g INTRAVENOUS PRN - ondansetron 4 mg tab(s) (ZOFRAN) 4 mg ORAL q 6 H PRN Or - ondansetron (PF) 4 mg injection (ZOFRAN) 4 mg INTRAVENOUS q 6 H PRN - Chlorhexidine Gluconate 0.12 % 15 mL (PERIDEX) 15 mL ORAL q 12 H - hydrALAZINE 10 mg injection (APRESOLINE) 10 mg INTRAVENOUS q 4 H PRN - famotidine 20 mg tab(s) (PEPCID) 20 mg ORAL BID - metoprolol 5 mg injection (LOPRESSOR) 5 mg INTRAVENOUS q 6 H PRN - gabapentin 200 mg cap(s) (NEURONTIN) 200 mg ORAL q 12 H Date 12/30/18699 - 12/31/1865812/31/18699 - 01/01/19 0659 Shift 4079-9522 0533-7965 5675-9709 24 Hour Total 9607-9896 0106-6637 9577-8847 24 Hour Total INTAKE PO 660 660 PO 660 660 IV 80 100 180 Cefazolin IV 100 100 OR Crystalloid intake (mL) 80 80 Shift Total 80 760 840 OUTPUT Urine 250 311 666 6073 300 300 Void (ml) 250 189 626 7717 300 300 Drains 0 0 Negative Pressure: Output (mL) (Negative Pressure Wound Therapy 12/30/18920 Arm - Forearm Left) 0 0 Shift Total 250 354 052 9812 300 300 Weight (kg) 109.3 109.3 109.3 109.3 109.3 109.3 109.3 109.3 Negative Pressure Wound Therapy 12/30/18920 Arm - Forearm Left (Active) Negative Pressure: Therapy Continuous 12/30/2018 9:21 AM Negative Pressure: mmHg 125 mmHg 12/30/2018 9:21 AM Negative Pressure: Output (mL) 0 12/30/2018 9:21 AM Number of days: 1 Surgical Incision 12/25/18 0212 Arm-Left (Active) Dressing Status Clean, Dry AND Intact 12/31/2018 7:00 AM Frequency of Dressing Change Every 3 Days 12/30/2018 7:28 PM Dressing Change Due 01/02/19 12/30/2018 7:28 PM Dressing /Treatment Type Elastic Bandage/Wrap 12/31/2018 7:00 AM Incision Closures Open 12/29/2018 8:00 AM Drainage Description Serosanguineous 12/31/2018 7:00 AM Drainage Amount Medium 12/30/2018 7:00 AM Edges Other: See Comment 12/29/2018 8:00 AM Hematoma No 12/31/2018 7:00 AM Number of days: 6 Vitamin and Mineral Labs in the past year:No results for input(s): CHROMIUM, COPPER, MANGANESE, SELENIUM, VITAMINA, VITB1, VITB2, VITB6, B12, METHYLMAL, VITD25, VITAMINE, VITAK, ZINC, TIBC, FE, FRANCK in the last 8784 hours. MNT Billing Type: Initial Assess/15 min 3 units SIGNATURE: Fidelia Helm RD, JASON PATIENT NAME: Irene Nieto DATE: December 31, 2018 TIME: 9:51 AM PAGER: [phone] [facility] PROGRESSon 12-31-2018 PROGRESS HNO ID: [id number] Author: Natalee Avina Service: Pain Management Author Type: Physician Type: Progress Notes Filed: 12/31/2018 10:24 AM Note Text: PAIN CONSULTATION: Left arm pain;left arm radial and ulnar artery injury s/p POD5 repair, left forearm compartment syndrome s/p POD5 L forearm volar fasciotomy IRENE NIETO 53 year old 24 HOUR COMFORT MEDICATIONS: Acetaminophen 975 mg ? 3 Gabapentin discontinued due to side effects; doesn't like how it made him feel Hydromorphone 1 mg IV ? none Dilaudid 4 mg by mouth ? 7 ? GI regimen Senna?S twice a day Pain Description: patient seen earlier-ongoing burning pain left upper extremity with some throbbing pain. Pain subsides when he is able to elevate his left upper extremity. Interval HPI: Tolerated wound VAC placement yesterday. Plans for surgery 01/02 noted 12/30 irrigation and debridement of left forearm fasciotomy with application of wound VAC per Ortho Subjective HPI: 53-year-old male, transferred from [facility] on 12/25/2018 secondary to avascular injury to his left upper extremity after a single incision distal biceps repair earlier that day. Approximately one week prior to his initial presentation, while constructing a pleural, the patient felt a sudden pop in his left arm, resulting in a rupture of his left distal biceps while lifting a heavy box. On the day of presentation, he underwent a left biceps repair with arthritis tendon button and screw. However, following that procedure he developed paresthesias in his left arm on the dorsal and volar aspects down to his fingers, and was unable to flex, extend his elbow, wrists, fingers, and there was concern that there was a brachial artery injury as a result of the surgery itself. He was taken emergently to the operating room from the emergency department here, where he underwent repair of the left radial artery, reimplantation of the left ulnar artery, left upper extremity fasciotomy and carpal tunnel release as well as a fasciotomy of the left forearm. During that surgery was identified that he had a laceration at the bifurcation of the ulnar and brachial arteries with compartment syndrome. His [place] prescription history is unremarkable except for one prescription for Nuvigil, and one prescription for [place]. 11/29/2018 1 11/28/2018 Armodafinil 150 MG Tablet 30 30 Pa Tri [id number] [place] ([id number]) 0 Private Pay [place] 11/25/2018 1 11/25/2018 Hydrocodone-Acetamin 5-325 MG 10 3 Da Barbi [id number] [place] ([id number]) 0 16.67 MME Comm Ins [place] Current Facility-Administered Medications Medication Dose Route Frequency Provider Last Rate Last Dose - enoxaparin 40 mg injection (LOVENOX) 40 mg SUBCUTANEOUS q 24 HR Todd Hieb 40 mg at 12/30/18 1230 - HYDROmorphone 1-1.5 mg injection (DILAUDID) 1-1.5 mg INTRAVENOUS q 3 H PRN Natalee Avina - therapeutic multivitamin with iron (THERAGRAN-M) 1 tablet ORAL DAILY Edin (Res) Klaudia 1 tablet at 12/31/18 0905 - HYDROmorphone 4 mg tab(s) (DILAUDID) 4 mg ORAL q 3 H PRN Edin (Res) Phoenixowski 4 mg at 12/31/18 0733 - HYDROmorphone 6 mg tab(s) (DILAUDID) 6 mg ORAL q 4 H PRN Edin (Res) Pinkowski 6 mg at 12/30/18 0408 - sodium chloride 0.65 % 2 [place] (AYR, OCEAN) 2 [place] EACH NOSTRIL PRN Christopher (Res) Phoenixowski - senna-docusate 8.6-50 mg 1 tablet (SENNA-S) 1 tablet ORAL BID Christopher (Res) Pinkowski 1 tablet at 12/31/18 0905 - polyethylene glycol 3350 17 g packet (MIRALAX, GLYCOLAX) 17 g ORAL DAILY PRN Christopher (Res) Pinkowski 17 g at 12/31/18 0905 - bisacodyl 10 mg suppository (DULCOLAX) 10 mg RECTAL DAILY PRN Christopher (Res) Pinkowski - acetaminophen 975 mg tab(s) (TYLENOL) 975 mg ORAL q 6 H Christopher (Res) Pinkowski 975 mg at 12/31/18 0622 - potassium chloride 80-120 mEq oral liquid 80-120 mEq ORAL/FEEDING TUBE PRN Christopher (Res) Phoenixowski - potassium chloride iv piggyback 20 mEq/100 mL 20 mEq INTRAVENOUS PRN Christopher (Res) Pinkowski - magnesium sulfate in water 2 g in sterile water 50 ml 2 g INTRAVENOUS PRN Christopher (Res) Pinkowski - sodium phosphate 45 mmol in NaCl 0.9% 250 mL 45 mmol INTRAVENOUS PRN Christopher (Res) Pinkowski - calcium gluconate 4 g in NaCl 0.9% 250 mL 4 g INTRAVENOUS PRN Christopher (Res) Pinkowski - ondansetron 4 mg tab(s) (ZOFRAN) 4 mg ORAL q 6 H PRN Christopher (Res) Phoenixowski Or - ondansetron (PF) 4 mg injection (ZOFRAN) 4 mg INTRAVENOUS q 6 H PRN Christopher (Res) Pinkowski - Chlorhexidine Gluconate 0.12 % 15 mL (PERIDEX) 15 mL ORAL q 12 H Christopher (Res) Pinkowski 15 mL at 12/25/18 2100 - hydrALAZINE 10 mg injection (APRESOLINE) 10 mg INTRAVENOUS q 4 H PRN Christopher (Res) Pinkowski 10 mg at 12/30/18 0749 - famotidine 20 mg tab(s) (PEPCID) 20 mg ORAL BID Christopher (Res) Pinkowski 20 mg at 12/31/18 0905 - metoprolol 5 mg injection (LOPRESSOR) 5 mg INTRAVENOUS q 6 H PRN Tiopher (Res) Pinkowski 5 mg at 12/30/18 1928 - gabapentin 200 mg cap(s) (NEURONTIN) 200 mg ORAL q 12 H Christopher (Res) Pinkowski 200 mg at 12/28/18 0900 Medications Prior to Admission: omeprazole (PRILOSEC) 20 mg capsule Take 20 mg by mouth once daily. Disp: Rfl: armodafinil (NUVIGIL) 150 mg tab Take 75 mg by mouth once daily. For shift work disorder Disp: Rfl: Social History Socioeconomic History Marital status: Spouse name: Not on file Number of children: Not on file Years of education: Not on file Highest education level: Not on file Social Needs Financial resource strain: Not on file Food insecurity - worry: Not on file Food insecurity - inability: Not on file Transportation needs - medical: Not on file Transportation needs - non-medical: Not on file Occupational History Not on file Tobacco Use Smoking status: Never Smoker Smokeless tobacco: Never Used Substance and Sexual Activity Alcohol use: No Drug use: No Sexual activity: Not on file Other Topics Concerns: Not on file Social History Narrative Not on file No family history on file. PAST SURGICAL HISTORY Procedure Laterality Date - PAST SURGICAL HISTORY OF left knee ROS: All of the following reviewed and negative except as noted below: GENERAL: no fever, chills, sweats, weight gain of 20-30 lbs, also associated fatigue, generalized weakness HEENT: no headache, vision changes, eye discomfort, hearing change, ear discomfort, sinus pain, nasal discharge or congestion, oral lesions, soreness, dental problem NECK: no adenopathy, discomfort, change in ROM CHEST: no shortness of breath, dyspnea on exertion, wheezing, cough, sputum production or chest pain HEART: no chest pain, palpitations, syncope ABDOMEN: no nausea, vomiting, constipation, diarrhea, abdominal pain : no dysuria, urgency, frequency, history of stones, incontinence NEURO: no confusion or alteration in consciousness, slurred speech, seizure, focal weakness EXTREMITIES: no new pain, but diffuse edema, see also history of present illness HEME: no new adenopathy, bruises, petechiae PSYCH: no depression, anxiety, agitation PHYSICAL EXAMINATION: see below for new or abnormal findings BP 125/67 Pulse 90 Temp 36.6 ?C (97.9 ?F) (Temporal) Resp 16 Ht 172.7 cm (5' 8) Wt 109.3 kg (240 lb 15.4 oz) SpO2 96% BMI 36.64 kg/m? BMI 36.64 kg/(m2) Date 12/29/18699 - 12/30/18 0659 Shift 2278-2600 3828-2934 0163-4291 24 Hour Total INTAKE PO 360 360 IV 34.6 34.6 Shift Total 394.6 394.6 OUTPUT Urine 325 325 Shift Total 325 325 Weight (kg) 109.6 109.6 109.6 109.6 Date 12/28/181499 - 12/29/1859 12/29/18699 - 12/30/18 0659 Shift 1507-8070 7486-1369 24 Hour Total 5075-4866 7053-8263 8121-6101 24 Hour Total INTAKE PO 989 185 1776 360 360 PO 132 064 3195 360 360 IV 217 217 34.6 34.6 Heparin IV 217 217 34.6 34.6 Shift Total 614 622 2815 394.6 394.6 OUTPUT Urine 7878 268 7251 325 325 Void (ml) 5005 007 0553 325 325 Shift Total 8410 680 5655 325 325 Weight (kg) 109.2 109.6 109.6 109.6 109.6 109.6 109.6 GENERAL: well nourished and developed; no acute distress; alert and oriented x 3; intact judgement and insight HEENT: no evidence of trauma; cranial nerves intact; eyes clear EOMI; no hearing deficits apparent; nasal passages unremarkable; throat and mucous membranes clear NECK: supple without lymphadenopathy; no JVD; no thyromegaly CHEST: clear bilaterally to auscultation; normal chest movement; no rales or rhonchi HEART: regular rate and rhythm, normal S1 and S2, no murmurs, clicks, rubs, or gallops ABDOMEN: soft; nondistended; bowel sounds present; no hepatomegaly; no splenomegaly; no tenderness EXTREMITIES: no evidence of clubbing; no cyanosis; no deformity; no joint effusion; his left arm is extensively wrapped, fingers appeared to be unremarkable. edema bilateral lower extremities NEURO: cranial nerves intact; no focal deficits; no confusion; no tremor; sensorium normal SKIN: no rash; no skin breakdown; no decubitus lesions HEME: no bruising; no adenopathy PSYCH: no evidence of depression; no anxiety; no agitation; no apparent hallucinations PAIN PSYCHIATRIC EXAM: GENERAL: alert, oriented to person, place, time JUDGMENT AND INSIGHT: intact APPEARANCE: neatly groomed DEMEANOR: coooperative, not hostile, mistrustful, preoccupied, or demanding ACTIVITY: normal, not hyperactive or hypoactive, no tremors, tics EYE CONTACT: normal SPEECH: normal, rate, volume, articulation, coherence, spontaneity MOOD: normal, without overt sadness, grief, anxiety, appropriate to situation IDEATION: normal and without suicidal or homicidal ideation MEMORY: intact ABNORMAL/NEW FINDINGS: NONE RADIOLOGY/DIAGNOSTICS: LABORATORY: CBC: Recent Labs 12/31/18 0543 WBC 7.83 RBC 2.71* HB 7.2* HCT 22.8* PLT 223 MCV 84.1 MCH 26.6 MPV 10.8 RDW 15.0* CMP: Recent Labs 12/31/18 0543 NA 139 K 4.1 CHLOR 106 CO2 26 BUN 17 CREAT 0.68 GLUC 116* CA 8.0* ANION 11 Heme: No results for input(s): RETICP, ABSRETIC, LD, FRANCK, FE, TIBC, TRANSFERSAT in the last 24 hours. ASSESSMENT ACTIVE PROBLEM LIST Other and Unspecified Hyperlipidemia Essential hypertension, benign Degeneration of Intervertebral Disc, Site Unspecified Lumbago Tendonitis of Ankle Dilcia (Obstructive Sleep Apnea) Rhinitis Obesity, Class I, Bmi 30-34.9 Injury of Radial Artery At Forearm Level, Left, Initial Encounter Limb Ischemia Obesity, Class II, Bmi 35-39.9 PLAN: Left arm pain, status post repair of ruptured left biceps, status post repair of laceration at bifurcation of left radial and left ulnar artery, status post compartment syndrome?status post fasciotomy Status post irrigation and debridement of left forearm fasciotomy with application of wound VAC 12/29 Opiate naive prior to presentation. Dilaudid 4-6 mg every 3 hours as needed for pain orally Dilaudid to 1-1.5 mg IV every 3 hours as needed for breakthrough pain- did not use yesterday Increase senna S 2 tabs by mouth twice a day Anticipate will require opiates beyond this prescription, and anticipate need for opiate prescription at discharge. Natalee Avina MD Normal [facility] PROGRESS HNO ID: [id number] Author: Ольга (Yao) Billy Service: Cardiovascular Disease Author Type: Nurse Practitioner Type: Progress Notes Filed: 12/31/2018 1:52 PM Note Text: CARDIOVASCULAR SURGERY PROGRESS NOTE SERVICE DATE: 12/31/2018 SERVICE TIME: 9:45AM Rounds made with Dr. Obrien and RN. Patient presented s/p biceps tendon repair with brachial AND ulnar artery injury, hematoma, and compartment syndrome. Has undergone repair of left radial artery, reimplantation of left ulnar artery, and LUE fasciotomy/carpel tunnel release with subsequent IANDD of left forearm fasciotomy wound x2 (12/27 AND 12/30) and application of wound vac (12/30). Hemodynamically, he is stable and can be transferred out of the ICU. Pain is controlled per Pain Management Team. Plan is to return to OR 01/02 for another IANDD. Transfer orders entered and plan of care reviewed with RN and patient. SIGNATURE: Ольга Cervantes, [facility] PATIENT NAME: Irene Nieto DATE: December 31, 2018 TIME: 9:45AM PAGER/CONTACT #: [phone] ETX#[id number] [facility] PROGRESS HNO ID: [id number] Author: Bonnie Guo Service: Vascular Surgery Author Type: Physician Type: Progress Notes Filed: 01/09/2019 6:05 PM Note Text: Vascular Progress Note SERVICE DATE: 12/31/2018 Vascular AND Thoracic Surgery Service Pager: For questions or concerns Mon-Fri 6a-5p please page [phone]. After 5pm and on Weekends and Holidays, please page [phone] if in ICU or [phone] if on RNF. Subjective SUBJECTIVE: Pt stable overnight. No issues. Slightly improved movement in left upper extremity. Pain controled. Wound vac in place. Denies N/V/CP/SOB Diet: DIET REGULAR Objective OBJECTIVE: Vitals: BP 138/72 Pulse 85 Temp (Src) 97.7 (Temporal Artery) Resp 22 Ht 5' 8 (1.73m) Wt 240 lb 15.4 oz (109.3kg) SpO2 97% BMI 36.65 kg/(m2). O2 Therapy: Room Air Temp (24hrs), Av.1 ?C (98.7 ?F), Min:36.5 ?C (97.7 ?F), Max:37.6 ?C (99.7 ?F) O2 Therapy: Room Air IANDO: Date 12/30/18 07 - 12/31/1859 12/31/18699 - 01/01/19 0659 Shift 2693-4819 9772-7736 1257-0393 24 Hour Total 1687-4727 8386-1713 5250-6717 24 Hour Total INTAKE PO 660 660 PO 660 660 IV 80 100 180 Cefazolin IV 100 100 OR Crystalloid intake (mL) 80 80 Shift Total 80 760 840 OUTPUT Urine 250 556 410 2627 Void (ml) 250 654 063 8845 Drains 0 0 Negative Pressure: Output (mL) (Negative Pressure Wound Therapy 12/30/18 0921 Arm - Forearm Left) 0 0 Shift Total 250 249 087 0587 Weight (kg) 109.3 109.3 109.3 109.3 109.3 109.3 109.3 109.3 MEDICATIONS Current Facility-Administered Medications Medication Dose Route Frequency - enoxaparin 40 mg injection (LOVENOX) 40 mg SUBCUTANEOUS q 24 HR - HYDROmorphone 1-1.5 mg injection (DILAUDID) 1-1.5 mg INTRAVENOUS q 3 H PRN - therapeutic multivitamin with iron (THERAGRAN-M) 1 tablet ORAL DAILY - HYDROmorphone 4 mg tab(s) (DILAUDID) 4 mg ORAL q 3 H PRN - HYDROmorphone 6 mg tab(s) (DILAUDID) 6 mg ORAL q 4 H PRN - sodium chloride 0.65 % 2 [place] (AYR, OCEAN) 2 [place] EACH NOSTRIL PRN - senna-docusate 8.6-50 mg 1 tablet (SENNA-S) 1 tablet ORAL BID - polyethylene glycol 3350 17 g packet (MIRALAX, GLYCOLAX) 17 g ORAL DAILY PRN - bisacodyl 10 mg suppository (DULCOLAX) 10 mg RECTAL DAILY PRN - acetaminophen 975 mg tab(s) (TYLENOL) 975 mg ORAL q 6 H - potassium chloride 80-120 mEq oral liquid 80-120 mEq ORAL/FEEDING TUBE PRN - potassium chloride iv piggyback 20 mEq/100 mL 20 mEq INTRAVENOUS PRN - magnesium sulfate in water 2 g in sterile water 50 ml 2 g INTRAVENOUS PRN - sodium phosphate 45 mmol in NaCl 0.9% 250 mL 45 mmol INTRAVENOUS PRN - calcium gluconate 4 g in NaCl 0.9% 250 mL 4 g INTRAVENOUS PRN - ondansetron 4 mg tab(s) (ZOFRAN) 4 mg ORAL q 6 H PRN Or - ondansetron (PF) 4 mg injection (ZOFRAN) 4 mg INTRAVENOUS q 6 H PRN - Chlorhexidine Gluconate 0.12 % 15 mL (PERIDEX) 15 mL ORAL q 12 H - hydrALAZINE 10 mg injection (APRESOLINE) 10 mg INTRAVENOUS q 4 H PRN - famotidine 20 mg tab(s) (PEPCID) 20 mg ORAL BID - metoprolol 5 mg injection (LOPRESSOR) 5 mg INTRAVENOUS q 6 H PRN - gabapentin 200 mg cap(s) (NEURONTIN) 200 mg ORAL q 12 H Labs: Recent Labs 12/31/18 0543 12/30/18 0400 NA 139 138 K 4.1 3.7 CHLOR 106 105 CO2 26 25 BUN 17 16 CREAT 0.68 0.70 GLUC 116* 100* ANION 11 12 CA 8.0* 8.4* WBC 7.83 8.32 HB 7.2* 8.0* HCT 22.8* 25.1* PLT 223 213 No results for input(s): BODSITE, CTYPE, PH, PCO2, PO2, BE, HCO3, CO2CT, O2HB, COHB, MHGB, TEMP, PHTC, PCO2T, PO2T, O2AD in the last 72 hours. Exam: GENERAL: Alert, no distress, cooperative SKIN: Skin color, texture, turgor normal. No rashes or lesions. LUNGS: Unlabored breathing on O2 Therapy: Room Air on Liters: 3 sating at SpO2: 97 % CARDIAC: rate and rhythm as above, ABDOMEN: Benign, Soft, non-tender, No masses, hepatosplenomegaly and No lymphadenopathy EXTREMITIES: ROM of all joint grossly normal: strength grossly normal bilaterally. No deformities noted. Dressing intact, wound vac to LUE with minimal output. Radial pulse intact WOUND: clean, dry and intact ASSESSMENT AND PLAN: Assessment/Plan This is a 53 year old male?s/p Exploration of LUE, repair of L radial artery, re-implation of L ulnar artery, LUE fasciotomy and carpal tunnel release. ?Repeat IANDD in OR 12/27 AM. ? -reg diet - IAND D with ortho 12/27: palpable pulses in OR with multiphasic doppler signals -Pain control -prn lopressor for BP control - No further vascular intervention at this time -will discuss floor transfer soon -a line removed ? Assessment and plan discussed with attending: ? I saw and evaluated the patient. Discussed with the resident and agree with resident's findings and plan as documented in the resident's note. SIGNATURE: Todd Lugo MD PATIENT NAME: Irene Nieto DATE: December 31, 2018 TIME: 6:41 AM Pager: [phone] Normal [facility] PROGRESS HNO ID: [id number] Author: Mitchell Winter Service: Orthopaedic Surgery Author Type: Physician Type: Progress Notes Filed: 12/31/2018 4:27 PM Note Text: ORTHOPAEDIC SURGERY POSTOP DAILY PROGRESS NOTE Patient Name: Irene Nieto Date of Evaluation: 12/31/2018 Admission Date: 12/24/2018 Time of Evaluation: 5:51 AM ORTHO STAFF: Patient seen and examined. Agree with resident assessment and plan noted below. Wound vac with minimal output, good seal. Plan for attempted secondary closure of left forearm fasciotomy wound 01/02/2019 versus reapplication wound vac. Discussed with patient in detail and answered all questions. Mitchell Winter MD ASSESSMENT: 53 year old male POD # 6 left arm radial and ulnar artery repair, L forearm volar fasciotomy, POD # 1 irrigation and debridement of left arm fasciotomy with application of wound vac PLAN: INITIAL POST-OP MANAGEMENT PLAN: Pain Management: Per pain management DVT prophylaxis: Per CVICU, ok for chemoppx per ortho if deemed necessary by vascular/crit care, no need for chemoppx per ortho Perioperative Antibiotics: Ancef 2gs x2 doses completed Urinary Catheter?:No Diet Plan: Diet regular Mobilization, Range of Motion, and Weight bearing: Long arm splint in place- maintain, NWB LUE Dressing Management: Wound vac in place with long arm splint Tentative plan for OR 01/02/2019 for repeat IANDD, secondary closure vs. Application of rat exterminator wound vac ? Est LOS AND Disch Destination: TBD Any Other Issues? HTN, DILCIA, obesity Consults: Critical care, Vascular surgery, Pain management INTERVAL HPI: Patient monitored, no new events overnight. Patient states that they are comfortable. Well Controlled pain. Denies nausea/vomitting. OBJECTIVE: BP 166/67 Pulse 88 Temp 36.5 ?C (97.7 ?F) (Temporal Artery) Resp 28 Ht 172.7 cm (5' 8) Wt 109.3 kg (240 lb 15.4 oz) SpO2 94% BMI 36.64 kg/m? Intake/Output Summary (Last 24 hours) 12/30 2300 - 12/31 0659 In: 760 [PO:660; IV:100] Out: 400 [Urine:400] Exam: General: NAD, AAOx3 Extremities: Left Upper Extremity: Dressing and long arm splint in place, clean, dry, intact IF AROM flexion and extension- improved since last exam MF and LF flexion- improving Minimal sensation in radial nerve distribution, no sensation to ulnar or medial nerve distribution BCR Compartments soft, compressible. Tolerates passive stretch of digits. Labs: BMP: Sodium 138 12/30/2018 Potassium 3.7 12/30/2018 Chloride 105 12/30/2018 CO2 25 12/30/2018 BUN 16 12/30/2018 Creatinine 0.70 12/30/2018 Glucose 100 12/30/2018 CBC: WBC 8.32 12/30/2018 HGB 8.0 12/30/2018 Hematocrit 25.1 12/30/2018 Platelet Count 213 12/30/2018 COAGS: APTT 48.2 12/30/2018 INR 1.01 12/25/2018 Imaging: no new images Edin Rudolph MD Resident, Orthopaedic Surgery Pager #: [phone] 12/31/2018 5:51 AM Please page [phone] from 5p-6a and on weekends for any issues. Normal [facility] ANES Bertha 12-30-2018 ANES POST HNO ID: [id number] Author: Bjorn Loya Service: Anesthesiology Author Type: Physician Type: Anesthesia PostOp Filed: 12/30/2018 8:16 PM Note Text: POST ANESTHESIA EVALUATION NOTE SERVICE DATE: 12/30/2018 SERVICE TIME: 8:15 PM : 1965 Vitals: 12/30/18 0945 12/30/18 1100 12/30/18 1500 12/30/18 1900 Temp: 36.7 ?C (98.1 ?F) 37.2 ?C (99 ?F) 36.9 ?C (98.4 ?F) 37.6 ?C (99.7 ?F) 12/30/18 1700 12/30/18 1800 12/30/18192712/30/181999 Arterial BP 1: 136/67 150/64 137/67 136/64 BP: 12/30/18 1700 12/30/18 1800 12/30/18192712/30/181999 Pulse: 110 109 113 94 12/30/18 1700 12/30/18 1800 12/30/18192712/30/181999 Resp: 21 22 19 19 12/30/18 1400 12/30/18 1500 12/30/18192712/30/181999 SpO2: 96% 97% 96% 96% Validated Vital Signs: Yes POST ANES STATUS: PACU/ICU Patient Condition: Stable Neurological Status: Awake AND alert. Pulmonary Status: Breathing comfortably on supplemental oxygen. Airway Control: Returned to baseline unsupported. Cardiovascular Status: Stable Pain: Adequately controlled Postoperative Nausea/Vomiting: No significant post operative nausea or vomiting Postoperative Hydration Status: Adequate. Intra-Operative Events: No Significant Anesthesia Events Anesthetic Complications: None Recommendation: Continue current plan of care and Further care per PACU/ICU/Floor team Other Remarks: SIGNATURE: Bjorn Loya MD PATIENT NAME: Irene Nieto DATE: December 30, 2018 TIME: 8:15 PM PAGER/CONTACT #: Normal [facility] Activated PTTon 12-30-2018 aPTT Coag (Bld) [Time] 48.2 s High 23.0-32.4 [facility] Comment on above: Result Comment: Unfr actionated Heparin Therapeutic Ranges: Standard Heparin Nomogram: 53 to 78 seconds (anti-Xa level of 0.3 to 0.7 U/mL) Low Dose/ACS Nomogram: 49 to 67 seconds (anti-Xa level of 0.2 to 0.5 U/mL) Stroke Treatment Nomogram: 49 to 67 seconds (anti-Xa level of 0.2 to 0.5 U/mL) Note: The APTT therapeutic range has been determined for the current lot of laboratory APTT reagent in use throughout the [facility]. Performed By: #### P 8 #### [facility] [address] [place], [place] [address] Basic Panelon 12-30-2018 Creatinine [Mass/Vol] 0.70 mg/dL Normal 0.67-1.17 [facility] Comment on above: Performed By: #### P 8 #### [facility] [address] [place], [place] [address] Anion gap [Moles/Vol] 12 mmol/L Normal 8-16 [facility] Comment on above: Performed By: #### P 8 #### [facility] [address] [place], [place] [address] Calcium [Mass/Vol] 8.4 mg/dL Low 8.5-10.1 [facility] Comment on above: Performed By: #### P 8 #### [facility] [address] [place], [place] [address] CO2 [Moles/Vol] 25 mmol/L Normal 21-32 [facility] Comment on above: Performed By: #### P 8 #### [facility] [address] [place], [place] [address] Glucose [Mass/Vol] 100 mg/dL High 70-99 [facility] Comment on above: Performed By: #### P 8 #### [facility] [address] [place], [place] [address] Urea nitrogen [Mass/Vol] 16 mg/dL Normal 7-18 [facility] Comment on above: Performed By: #### P 8 #### [facility] [address] [place], [place] [address] Chloride [Moles/Vol] 105 mmol/L Normal 98-107 [facility] Comment on above: Performed By: #### P 8 #### [facility] [address] [place], [place] [address] Potassium [Moles/Vol] 3.7 mmol/L Normal 3.5-5.1 [facility] Comment on above: Performed By: #### P 8 #### [facility] [address] [place], [place] [address] Sodium [Moles/Vol] 138 mmol/L Normal 136-145 [facility] Comment on above: Performed By: #### P 8 #### [facility] [address] [place] [address] Hemogram/Diffon 12-30-2018 Abs Immature Grans 0.42 thou/cmm High 0.00-0.05 [facility] Comment on above: Performed By: #### P 8 #### [facility] [address] [place] [address] Abs Neut (ANC) 5.78 thou/cmm High 1.78-5.38 [facility] Comment on above: Performed By: #### P 8 #### [facility] [address] [place] [address] Abs. Baso 0.03 thou/cmm Normal 0.01-0.08 [facility] Comment on above: Result Comment: Smea r scanned; tech agrees with automated differential Performed By: #### P 8 #### [facility] [address] [place] [address] Abs. [place] 0.91 thou/cmm High 0.30-0.82 [facility] Comment on above: Performed By: #### P 8 #### [facility] [address] [place] [address] Basophils/100 WBC (Bld) 0.4 % Normal [facility] Comment on above: Performed By: #### P 8 #### [facility] [address] [place] [address] Eosinophils (Bld) [#/Vol] 0.06 thou/cmm Normal 0.04-0.54 [facility] Comment on above: Performed By: #### P 8 #### [facility] [address] [place] [address] Eosinophils/100 WBC (Bld) 0.7 % Normal [facility] Comment on above: Performed By: #### P 8 #### [facility] [address] [place] [address] Immature Grans 5.00 % Normal [facility] Comment on above: Performed By: #### P 8 #### [facility] [address] [place], [place] [address] Lymphocytes (Bld) [#/Vol] 1.12 thou/cmm Normal 0.84-2.85 [facility] Comment on above: Performed By: #### P 8 #### [facility] [address] [place], [place] [address] Lymphocytes/100 WBC (Bld) 13.5 % Normal [facility] Comment on above: Performed By: #### P 8 #### [facility] [address] [place], [place] [address] Monocytes/100 WBC (Bld) 10.9 % Normal [facility] Comment on above: Performed By: #### P 8 #### [facility] [address] [place], [place] [address] Seg Neutrophil 69.5 % Normal [facility] Comment on above: Performed By: #### P 8 #### [facility] [address] [place], [place] [address] Erythrocyte distribution width (RBC) [Ratio] 14.8 % High 11.6-14.4 [facility] Comment on above: Performed By: #### P 8 #### [facility] [address] [place], [place] [address] Hematocrit (Bld) [Volume fraction] 25.1 % Low 40.1-51.0 [facility] Comment on above: Performed By: #### P 8 #### [facility] [address] [place], [place] [address] Hemoglobin (Bld) [Mass/Vol] 8.0 g/dL Low 13.7-17.5 [facility] Comment on above: Performed By: #### P 8 #### [facility] [address] [place], [place] [address] MCH (RBC) [Entitic mass] 26.8 pg Normal 25.7-32.2 [facility] Comment on above: Performed By: #### P 8 #### [facility] [address] [place], [place] [address] MCHC (RBC) [Mass/Vol] 31.9 % Low 32.3-36.5 [facility] Comment on above: Performed By: #### P 8 #### [facility] [address] [place] [address] MCV (RBC) [Entitic vol] 84.2 fL Normal 83.2-95.6 [facility] Comment on above: Performed By: #### P 8 #### [facility] [address] [place] [id number] Platelet mean volume (Bld) [Entitic vol] 10.1 fL Normal 8.7-12.0 [facility] Comment on above: Performed By: #### P 8 #### [facility] [address] [place] [id number] Platelets (Bld) [#/Vol] 213 thou/cmm Normal 141-365 [facility] Comment on above: Performed By: #### P 8 #### [facility] [address] [place] [address] RBC (Bld) [#/Vol] 2.98 mil/cmm Low 4.63-6.08 [facility] Comment on above: Performed By: #### P 8 #### [facility] [address] [place] [address] RDW SD 45.6 fl Normal 36.1-45.8 [facility] Comment on above: Performed By: #### P 8 #### [facility] [address] [place] [id number] WBC (Bld) [#/Vol] 8.32 thou/cmm Normal 4.23-9.07 [facility] Comment on above: Performed By: #### P 8 #### [facility] [address] [place] [address] OPERATIVE NOon 12-30-2018 OPERATIVE NO HNO ID: [id number] Author: Mitchell Winter Service: Orthopaedic Surgery Author Type: Physician Type: Operative Report Filed: 12/31/2018 5:14 PM Note Text: ORTHOPAEDIC OPERATIVE REPORT PATIENT NAME: Irene Nieto Surgery/Procedure Date: 12/30/2018 Incision/Procedure Start Time: 8:35 AM Incision Close/Procedure End Time: 9:12 AM Surgeon(s) and City Attorney(s): Surgeon(s) and Role: * Mitchell Winter - Primary * Edin (Res) Klaudia - Resident - Assisting No Additional Staff PRE-OPERATIVE DIAGNOSIS: Left forearm fasciotomy s/p vascular repair POST-OPERATIVE DIAGNOSIS: Left forearm fasciotomy s/p vascular repair SURGICAL PROCEDURE(S): 1) Repeat irrigation and debridement left forearm fasciotomy wound (14 cm x 6 cm x 1 cm) 2) Application wound vac left forearm (14 cm x 6 cm x 1 cm) + (8 cm x 10 cm x 1 cm) Anesthesia: General Implantable Devices: None Complications: None Specimens: None Estimated Blood Loss: < 25 mls OPERATIVE INDICATIONS: This is a 53 year old male who sustained vascular injury to the left forearm during an elective biceps tendon repair at another institution 12/24/2018. He underwent multiple procedures with Dr. Guo and Dr. Espinoza including vascular repair and forearm decompression. I was asked to participate in care for potential coverage versus closure of the volar forearm wound; there has been minimal motor function return to date. Risks and benefits of wound debridement with closure versus coverage were reviewed in detail with the patient and all questions answered. OPERATIVE PROCEDURE: The patient was brought to the operating room on the hospital bed. He was intubated per Anesthesia. The patient was then transferred to the operating table. The left upper extremity was pre-washed with chlorhexidine. The volar decompression wound was measured at 14 cm in length by 6 cm wide. Proximal to the wound was a region of skin compromise with blistering measured at 10 cm in length by 8 cm wide. The surgical incision for the vascular repair was well approximated. The left upper extremity was padded prepped and sterilely draped for the procedure. The [facility] timeout protocol was performed. The volar wound was irrigated with three liters of saline. FCR tendon spanning the central portion of the wound was identified. Flexor muscular was noted to be contractile within the wound bed, with questionable viability as it was covered proximally in the forearm. The wound was circumferentially debrided with a curet, with appropriate blood flow to the local soft tissues noted. Based on the degree of edema, unresolved blisters of the soft tissues proximally and the presence of exposed flexor tendon in the middle of the wound, definitive coverage with split thickness skin grafting was not appropriate at this setting. The wound appeared amenable to closure after treatment with wound vac application to decrease local edema. Vessel loops were crossed over the wound to provide mild tension and attached with tito. A wound vac was applied to the volar forearm wound (14 cm x 6 cm x 1 cm) and to the region of skin blistering proximally (8 cm x 10 cm x 1 cm). A good seal was noted. Sterile dressings were applied followed by a long arm splint in extension. All draping was removed. The patient was extubated per Anesthesia. He was returned to the hospital bed and taken to the recovery room in stable condition. POST-OPERATIVE PLAN: No weight bearing left upper extremity in long arm splint + wound vac. Pain management. DVT prophylaxis: Per CVICU, currently heparin, ok for chemoppx per ortho if still required. Perioperative Antibiotics: Ancef 2gs x2 doses. Diet Plan: Diet liquid advance as tolerated to Diet regular. Dressing Management: Wound vac in place with long arm splint. Tentative plan for OR 01/02/2019 for repeat IANDD, secondary closure vs. Application of usp wound vac . Updated regarding operative findings and post-surgical state via phone conversation. I/primary surgeon/proceduralist performed the procedure with assistance. SIGNATURE: Mitchell Winter MD DATE: December 31, 2018 TIME: 4:56 PM Normal [facility] PROGRESSon 12-30-2018 PROGRESS HNO ID: [id number] Author: Natalee Avina Service: Pain Management Author Type: Physician Type: Progress Notes Filed: 12/30/2018 11:20 AM Note Text: PAIN CONSULTATION: Left arm pain;left arm radial and ulnar artery injury s/p POD5 repair, left forearm compartment syndrome s/p POD5 L forearm volar fasciotomy IRENE NIETO 53 year old 24 HOUR COMFORT MEDICATIONS: Acetaminophen 975 mg ?4 Gabapentin discontinued due to side effects; doesn't like how it made him feel Hydromorphone 1 mg IV ?1 Dilaudid 6 mg by mouth ?3 Oxycodone 10 mg ?2 discontinued ? GI regimen Senna?S twice a day Pain Description: patient seen earlier-complains of deep burning pain in his left upper extremity Interval HPI: 12/30 irrigation and debridement of left forearm fasciotomy with application of wound VAC per Ortho Subjective HPI: 53-year-old male, transferred from [facility] on 12/25/2018 secondary to avascular injury to his left upper extremity after a single incision distal biceps repair earlier that day. Approximately one week prior to his initial presentation, while constructing a pleural, the patient felt a sudden pop in his left arm, resulting in a rupture of his left distal biceps while lifting a heavy box. On the day of presentation, he underwent a left biceps repair with arthritis tendon button and screw. However, following that procedure he developed paresthesias in his left arm on the dorsal and volar aspects down to his fingers, and was unable to flex, extend his elbow, wrists, fingers, and there was concern that there was a brachial artery injury as a result of the surgery itself. He was taken emergently to the operating room from the emergency department here, where he underwent repair of the left radial artery, reimplantation of the left ulnar artery, left upper extremity fasciotomy and carpal tunnel release as well as a fasciotomy of the left forearm. During that surgery was identified that he had a laceration at the bifurcation of the ulnar and brachial arteries with compartment syndrome. His [place] prescription history is unremarkable except for one prescription for Nuvigil, and one prescription for [place]. 11/29/2018 1 11/28/2018 Armodafinil 150 MG Tablet 30 30 Pa Tri [id number] Dale ([id number]) 0 Private [facility] 11/25/2018 1 11/25/2018 Hydrocodone-Acetamin 5-325 MG 10 3 Da Barbi [id number] Dale ([id number]) 0 16.67 MME [facility] Current Facility-Administered Medications Medication Dose Route Frequency Provider Last Rate Last Dose - ceFAZolin iv piggyback 2 g in D5W (iso-osmotic) 100 mL (ANCEF) 2 g INTRAVENOUS ONCE Edin (Res) Klaudia - ceFAZolin iv piggyback 2 g in D5W (iso-osmotic) 100 mL (ANCEF) 2 g INTRAVENOUS q 8 HR Edin (Res) Klaudia - enoxaparin 40 mg injection (LOVENOX) 40 mg SUBCUTANEOUS q 24 HR Todd Lugo - HYDROmorphone 1-1.5 mg injection (DILAUDID) 1-1.5 mg INTRAVENOUS q 3 H PRN Natalee Pardo [place] - therapeutic multivitamin with iron (THERAGRAN-M) 1 tablet ORAL DAILY Edin (Res) Klaudia 1 tablet at 12/29/182200 - HYDROmorphone 4 mg tab(s) (DILAUDID) 4 mg ORAL q 3 H PRN Christopher (Res) Pinkowski 4 mg at 12/30/18 0727 - HYDROmorphone 6 mg tab(s) (DILAUDID) 6 mg ORAL q 4 H PRN Christopher (Res) Pinkowski 6 mg at 12/30/18 0408 - sodium chloride 0.65 % 2 [place] (AYR, OCEAN) 2 [place] EACH NOSTRIL PRN Christopher (Res) Pinkowski - senna-docusate 8.6-50 mg 1 tablet (SENNA-S) 1 tablet ORAL BID Christopher (Res) Pinkowski 1 tablet at 12/29/182050 - polyethylene glycol 3350 17 g packet (MIRALAX, GLYCOLAX) 17 g ORAL DAILY PRN Christopher (Res) Pinkowski 17 g at 12/26/18 1758 - bisacodyl 10 mg suppository (DULCOLAX) 10 mg RECTAL DAILY PRN Christopher (Res) Pinkowski - acetaminophen 975 mg tab(s) (TYLENOL) 975 mg ORAL q 6 H Christopher (Res) Pinkowski 975 mg at 12/29/18 2319 - potassium chloride 80-120 mEq oral liquid 80-120 mEq ORAL/FEEDING TUBE PRN Christopher (Res) Pinkowski - potassium chloride iv piggyback 20 mEq/100 mL 20 mEq INTRAVENOUS PRN Christopher (Res) Pinkowski - magnesium sulfate in water 2 g in sterile water 50 ml 2 g INTRAVENOUS PRN Christopher (Res) Pinkowski - sodium phosphate 45 mmol in NaCl 0.9% 250 mL 45 mmol INTRAVENOUS PRN Christopher (Res) Pinkowski - calcium gluconate 4 g in NaCl 0.9% 250 mL 4 g INTRAVENOUS PRN Christopher (Res) Pinkowski - ondansetron 4 mg tab(s) (ZOFRAN) 4 mg ORAL q 6 H PRN Christopher (Res) Pinkowski Or - ondansetron (PF) 4 mg injection (ZOFRAN) 4 mg INTRAVENOUS q 6 H PRN Christopher (Res) Pinkowski - Chlorhexidine Gluconate 0.12 % 15 mL (PERIDEX) 15 mL ORAL q 12 H Christopher (Res) Pinkowski 15 mL at 12/25/18 2100 - hydrALAZINE 10 mg injection (APRESOLINE) 10 mg INTRAVENOUS q 4 H PRN Christopher (Res) Pinkowski 10 mg at 12/30/18 0749 - famotidine 20 mg tab(s) (PEPCID) 20 mg ORAL BID Christopher (Res) Pinkowski 20 mg at 12/29/182050 - metoprolol 5 mg injection (LOPRESSOR) 5 mg INTRAVENOUS q 6 H PRN Christopher (Res) Pinkowski 5 mg at 12/30/18 1013 - gabapentin 200 mg cap(s) (NEURONTIN) 200 mg ORAL q 12 H Christopher (Res) Pinkowski 200 mg at 12/28/18 0900 Medications Prior to Admission: omeprazole (PRILOSEC) 20 mg capsule Take 20 mg by mouth once daily. Disp: Rfl: armodafinil (NUVIGIL) 150 mg tab Take 75 mg by mouth once daily. For shift work disorder Disp: Rfl: Social History Socioeconomic History Marital status: Spouse name: Not on file Number of children: Not on file Years of education: Not on file Highest education level: Not on file Social Needs Financial resource strain: Not on file Food insecurity - worry: Not on file Food insecurity - inability: Not on file Transportation needs - medical: Not on file Transportation needs - non-medical: Not on file Occupational History Not on file Tobacco Use Smoking status: Never Smoker Smokeless tobacco: Never Used Substance and Sexual Activity Alcohol use: No Drug use: No Sexual activity: Not on file Other Topics Concerns: Not on file Social History Narrative Not on file No family history on file. PAST SURGICAL HISTORY Procedure Laterality Date - PAST SURGICAL HISTORY OF left knee ROS: All of the following reviewed and negative except as noted below: GENERAL: no fever, chills, sweats, weight gain of 20-30 lbs, also associated fatigue, generalized weakness HEENT: no headache, vision changes, eye discomfort, hearing change, ear discomfort, sinus pain, nasal discharge or congestion, oral lesions, soreness, dental problem NECK: no adenopathy, discomfort, change in ROM CHEST: no shortness of breath, dyspnea on exertion, wheezing, cough, sputum production or chest pain HEART: no chest pain, palpitations, syncope ABDOMEN: no nausea, vomiting, constipation, diarrhea, abdominal pain : no dysuria, urgency, frequency, history of stones, incontinence NEURO: no confusion or alteration in consciousness, slurred speech, seizure, focal weakness EXTREMITIES: no new pain, but diffuse edema, see also history of present illness HEME: no new adenopathy, bruises, petechiae PSYCH: no depression, anxiety, agitation PHYSICAL EXAMINATION: see below for new or abnormal findings BP 166/67 Pulse 96 Temp 37.2 ?C (99 ?F) (Temporal) Resp 19 Ht 172.7 cm (5' 8) Wt 109.3 kg (240 lb 15.4 oz) SpO2 93% BMI 36.64 kg/m? BMI 36.64 kg/(m2) Date 12/29/18699 - 12/30/18 0659 Shift 7288-0849 3609-2068 4462-4492 24 Hour Total INTAKE PO 360 360 IV 34.6 34.6 Shift Total 394.6 394.6 OUTPUT Urine 325 325 Shift Total 325 325 Weight (kg) 109.6 109.6 109.6 109.6 Date 12/28/181499 - 12/29/1865812/29/18699 - 12/30/18 0659 Shift 4652-0564 2375-0029 24 Hour Total 2097-4233 1923-1820 2573-5275 24 Hour Total INTAKE PO 363 594 4949 360 360 PO 525 428 8827 360 360 IV 217 217 34.6 34.6 Heparin IV 217 217 34.6 34.6 Shift Total 342 218 3501 394.6 394.6 OUTPUT Urine 5544 768 2958 325 325 Void (ml) 1833 207 6645 325 325 Shift Total 2701 976 4786 325 325 Weight (kg) 109.2 109.6 109.6 109.6 109.6 109.6 109.6 GENERAL: well nourished and developed; no acute distress; alert and oriented x 3; intact judgement and insight HEENT: no evidence of trauma; cranial nerves intact; eyes clear EOMI; no hearing deficits apparent; nasal passages unremarkable; throat and mucous membranes clear NECK: supple without lymphadenopathy; no JVD; no thyromegaly CHEST: clear bilaterally to auscultation; normal chest movement; no rales or rhonchi HEART: regular rate and rhythm, normal S1 and S2, no murmurs, clicks, rubs, or gallops ABDOMEN: soft; nondistended; bowel sounds present; no hepatomegaly; no splenomegaly; no tenderness EXTREMITIES: no evidence of clubbing; no cyanosis; no deformity; no joint effusion; his left arm is extensively wrapped, fingers appeared to be unremarkable. edema bilateral lower extremities NEURO: cranial nerves intact; no focal deficits; no confusion; no tremor; sensorium normal SKIN: no rash; no skin breakdown; no decubitus lesions HEME: no bruising; no adenopathy PSYCH: no evidence of depression; no anxiety; no agitation; no apparent hallucinations PAIN PSYCHIATRIC EXAM: GENERAL: alert, oriented to person, place, time JUDGMENT AND INSIGHT: intact APPEARANCE: neatly groomed DEMEANOR: coooperative, not hostile, mistrustful, preoccupied, or demanding ACTIVITY: normal, not hyperactive or hypoactive, no tremors, tics EYE CONTACT: normal SPEECH: normal, rate, volume, articulation, coherence, spontaneity MOOD: normal, without overt sadness, grief, anxiety, appropriate to situation IDEATION: normal and without suicidal or homicidal ideation MEMORY: intact ABNORMAL/NEW FINDINGS: NONE RADIOLOGY/DIAGNOSTICS: LABORATORY: CBC: Recent Labs 12/30/18 0400 WBC 8.32 RBC 2.98* HB 8.0* HCT 25.1* PLT 213 MCV 84.2 MCH 26.8 MPV 10.1 RDW 14.8* CMP: Recent Labs 12/30/18 0400 NA 138 K 3.7 CHLOR 105 CO2 25 BUN 16 CREAT 0.70 GLUC 100* CA 8.4* ANION 12 Heme: No results for input(s): RETICP, ABSRETIC, LD, FRANCK, FE, TIBC, TRANSFERSAT in the last 24 hours. ASSESSMENT ACTIVE PROBLEM LIST Other and Unspecified Hyperlipidemia Essential hypertension, benign Degeneration of Intervertebral Disc, Site Unspecified Lumbago Tendonitis of Ankle Dilcia (Obstructive Sleep Apnea) Rhinitis Obesity, Class I, Bmi 30-34.9 Injury of Radial Artery At Forearm Level, Left, Initial Encounter Limb Ischemia Obesity, Class II, Bmi 35-39.9 PLAN: Left arm pain, status post repair of ruptured left biceps, status post repair of laceration at bifurcation of left radial and left ulnar artery, status post compartment syndrome?status post fasciotomy Status post irrigation and debridement of left forearm fasciotomy with application of wound VAC today Opiate naive prior to presentation. Definite relief with keeping his left arm elevated, exacerbated with his left arm and dependent position. Dilaudid 4-6 mg every 3 hours as needed for pain orally Dilaudid to 1-1.5 mg IV every 3 hours as needed for breakthrough pain. Anticipate will require opiates beyond this prescription, and anticipate need for opiate prescription at discharge. Natalee Avina MD [facility] PROGRESS HNO ID: [id number] Author: Geovanni Carrillo Service: Orthopaedic Surgery Author Type: Resident Type: Progress Notes Filed: 12/30/2018 11:06 AM Note Text: Orthopaedic Surgery Inpatient Progress Note Discussed DVT chemoprophylaxis with Dr. Winter. No need for chemoprophylaxis from orthopaedic surgery standpoint, but okay to do so if deemed necessary by Vascular Surgery given recent procedure. Discussed with CVICU nurse Trell and Dr. Winter. Geovanni Carrillo MD Orthopaedic Surgery, PGY-2 Pager: [phone] December 30, 2018, 11:06 AM [facility] PROGRESS HNO ID: [id number] Author: Bonnie Guo Service: Vascular Surgery Author Type: Physician Type: Progress Notes Filed: 12/30/2018 6:06 PM Note Text: Vascular Progress Note SERVICE DATE: 12/30/2018 Vascular AND Thoracic Surgery Service Pager: For questions or concerns Mon-Fri 6a-5p please page [phone]. After 5pm and on Weekends and Holidays, please page [phone] if in ICU or [phone] if on RNF. Subjective SUBJECTIVE: Pt appears stable. No issues overnight. Pt still appears to have a flat affect and seems distressed by his current situation. Denies N/V/CP/SOB Diet: DIET LIQUID DIET REGULAR Objective OBJECTIVE: Vitals: BP 166/67 Pulse 107 Temp (Src) 98.1 (Temporal Artery) Resp 21 Ht 5' 8 (1.73m) Wt 240 lb 15.4 oz (109.3kg) SpO2 93% BMI 36.65 kg/(m2). O2 Therapy: Nasal Cannula(To), Liters: 3 Temp (24hrs), Av.1 ?C (98.8 ?F), Min:36.7 ?C (98.1 ?F), Max:38 ?C (100.4 ?F) O2 Therapy: Nasal Cannula(To) IANDO: Date 12/29/18 0700 - 12/30/1859 12/30/18 07 - 12/31/18 0659 Shift 5489-2207 0154-7290 4968-2113 24 Hour Total 7810-2658 7160-9620 1027-6183 24 Hour Total INTAKE PO 481 225 0291 PO 605 582 6323 IV 34.6 89 232 355.6 80 80 Heparin IV 34.6 232 266.6 OR Crystalloid intake (mL) 80 80 Furosemide IV 89 89 Shift Total 634.6 338 659 6318.6 80 80 OUTPUT Urine 325 040 561 0173 Void (ml) 325 096 095 7916 Drains 0 0 Negative Pressure: Output (mL) (Negative Pressure Wound Therapy 12/30/18 0921 Arm - Forearm Left) 0 0 Shift Total 325 355 342 6989 0 0 Weight (kg) 109.6 109.6 109.3 109.3 109.3 109.3 109.3 109.3 MEDICATIONS Current Facility-Administered Medications Medication Dose Route Frequency - ceFAZolin iv piggyback 2 g in D5W (iso-osmotic) 100 mL (ANCEF) 2 g INTRAVENOUS ONCE - ceFAZolin iv piggyback 2 g in D5W (iso-osmotic) 100 mL (ANCEF) 2 g INTRAVENOUS q 8 HR - therapeutic multivitamin with iron (THERAGRAN-M) 1 tablet ORAL DAILY - HYDROmorphone 1.5 mg injection (DILAUDID) 1.5 mg INTRAVENOUS q 3 H PRN - HYDROmorphone 4 mg tab(s) (DILAUDID) 4 mg ORAL q 3 H PRN - HYDROmorphone 6 mg tab(s) (DILAUDID) 6 mg ORAL q 4 H PRN - sodium chloride 0.65 % 2 [place] (AYR, OCEAN) 2 [place] EACH NOSTRIL PRN - senna-docusate 8.6-50 mg 1 tablet (SENNA-S) 1 tablet ORAL BID - polyethylene glycol 3350 17 g packet (MIRALAX, GLYCOLAX) 17 g ORAL DAILY PRN - bisacodyl 10 mg suppository (DULCOLAX) 10 mg RECTAL DAILY PRN - acetaminophen 975 mg tab(s) (TYLENOL) 975 mg ORAL q 6 H - potassium chloride 80-120 mEq oral liquid 80-120 mEq ORAL/FEEDING TUBE PRN - potassium chloride iv piggyback 20 mEq/100 mL 20 mEq INTRAVENOUS PRN - magnesium sulfate in water 2 g in sterile water 50 ml 2 g INTRAVENOUS PRN - sodium phosphate 45 mmol in NaCl 0.9% 250 mL 45 mmol INTRAVENOUS PRN - calcium gluconate 4 g in NaCl 0.9% 250 mL 4 g INTRAVENOUS PRN - ondansetron 4 mg tab(s) (ZOFRAN) 4 mg ORAL q 6 H PRN Or - ondansetron (PF) 4 mg injection (ZOFRAN) 4 mg INTRAVENOUS q 6 H PRN - heparin iv infusion (STANDARD NOMOGRAM) 25,000 units in NaCl 0.45% 250 mL PREMIX 0-3,000 Units/hr INTRAVENOUS CONTINUOUS And - heparin RATE CHANGE bolus 1,000-10,000 Units for subtherapeutic aptt results 1,000-10,000 Units INTRAVENOUS PRN - NaCl 0.9% iv infusion 100 mL/hr INTRAVENOUS CONTINUOUS - Chlorhexidine Gluconate 0.12 % 15 mL (PERIDEX) 15 mL ORAL q 12 H - hydrALAZINE 10 mg injection (APRESOLINE) 10 mg INTRAVENOUS q 4 H PRN - famotidine 20 mg tab(s) (PEPCID) 20 mg ORAL BID - metoprolol 5 mg injection (LOPRESSOR) 5 mg INTRAVENOUS q 6 H PRN - gabapentin 200 mg cap(s) (NEURONTIN) 200 mg ORAL q 12 H Labs: Recent Labs 12/30/18 0400 12/29/18 0400 NA 138 137 K 3.7 3.5 CHLOR 105 106 CO2 25 27 BUN 16 14 CREAT 0.70 0.68 GLUC 100* 125* ANION 12 8 CA 8.4* 8.3* WBC 8.32 7.95 HB 8.0* 7.9* HCT 25.1* 24.7* PLT 213 183 No results for input(s): BODSITE, CTYPE, PH, PCO2, PO2, BE, HCO3, CO2CT, O2HB, COHB, MHGB, TEMP, PHTC, PCO2T, PO2T, O2AD in the last 72 hours. Exam: GENERAL: Alert, no distress, cooperative SKIN: Skin color, texture, turgor normal. No rashes or lesions. LUNGS: Unlabored breathing on O2 Therapy: Nasal Cannula(To) on Liters: 3 sating at SpO2: 93 % CARDIAC: rate and rhythm as above, ABDOMEN: Benign, Soft, non-tender, No masses, hepatosplenomegaly and No lymphadenopathy EXTREMITIES: RUE with minor motion in digits 2,3,4 no sensation. Doppler signal intact over left radial artery. WOUND: clean, dry and intact dressing. Plan for take down in OR 12/30 ASSESSMENT AND PLAN: Assessment/Plan ? This is a 53 year old male?s/p Exploration of LUE, repair of L radial artery, re-implation of L ulnar artery, LUE fasciotomy and carpal tunnel release. Repeat IANDD in OR 12/27 AM. ? -reg diet - IAND D with ortho 12/27: palpable pulses in OR with multiphasic doppler signals -Pain control -prn lopressor for BP control - No further vascular intervention at this time -will discuss floor transfer soon ? Assessment and plan discussed with attending: I saw and evaluated the patient. Discussed with the resident and agree with resident's findings and plan as documented in the resident's note.Seen in the operating room in the morning as well as afternoon on rounds. Overall attitude appears to be slightly better this afternoon. SIGNATURE: Todd Lugo MD PATIENT NAME: Irene Nieto DATE: December 30, 2018 TIME: 10:15 AM Pager: [phone] Normal [facility] PROGRESS HNO ID: [id number] Author: Mitchell Winter Service: Orthopaedic Surgery Author Type: Physician Type: Progress Notes Filed: 12/30/2018 8:02 AM Note Text: Orthopaedic INPATIENT PROGRESS NOTE ORTHO STAFF: Patient seen and examined. Agree with resident assessment and plan noted below. Asked to participate in care secondary to experience with wound vac closure. Discussed in detail with patient. Plan to evaluate left upper extremity wound in OR, apply wound vac versus initiate coverage over exposed tendons with integra and future STSG. Goal would be secondary closure without grafting procedure. Answered all questions. Mitchell Winter MD ASSESSMENT: 53yo M POD#6?s/p L radial and ulnar artery repairs, L forearm volar fasciotomy, L CTR?POD#3 IANDD Left forearm? ? ? PLAN: - PT/OT:??Non Weight Bearing?left upper extremity? - DVT Prophylaxis:?Heparing gtt - Appreciate ICU recommendations - Vascular following, no plans for any intervention at this time - Post-op Abx:?Post-op Ancef: complete - Dressing:?Dry dressing, Long posterior splint - Pain management on board, appreciate recs - NPO - Repeat IANDD, skin grafting today INTERVAL HPI: No acute events overnight. Pain controlled. OR today. MEDICATIONS: Current Facility-Administered Medications Medication Dose Route Frequency - potassium chloride 80-120 mEq oral liquid 80-120 mEq ORAL/FEEDING TUBE PRN - potassium chloride iv piggyback 20 mEq/100 mL 20 mEq INTRAVENOUS PRN - magnesium sulfate in water 2 g in sterile water 50 ml 2 g INTRAVENOUS PRN - sodium phosphate 45 mmol in NaCl 0.9% 250 mL 45 mmol INTRAVENOUS PRN - calcium gluconate 4 g in NaCl 0.9% 250 mL 4 g INTRAVENOUS PRN - ondansetron 4 mg tab(s) (ZOFRAN) 4 mg ORAL q 6 H PRN Or - ondansetron (PF) 4 mg injection (ZOFRAN) 4 mg INTRAVENOUS q 6 H PRN - heparin iv infusion (STANDARD NOMOGRAM) 25,000 units in NaCl 0.45% 250 mL PREMIX 0-3,000 Units/hr INTRAVENOUS CONTINUOUS And - heparin RATE CHANGE bolus 1,000-10,000 Units for subtherapeutic aptt results 1,000-10,000 Units INTRAVENOUS PRN - NaCl 0.9% iv infusion 100 mL/hr INTRAVENOUS CONTINUOUS - Chlorhexidine Gluconate 0.12 % 15 mL (PERIDEX) 15 mL ORAL q 12 H - hydrALAZINE 10 mg injection (APRESOLINE) 10 mg INTRAVENOUS q 4 H PRN - famotidine 20 mg tab(s) (PEPCID) 20 mg ORAL BID - metoprolol 5 mg injection (LOPRESSOR) 5 mg INTRAVENOUS q 6 H PRN - gabapentin 200 mg cap(s) (NEURONTIN) 200 mg ORAL q 12 H - senna-docusate 8.6-50 mg 1 tablet (SENNA-S) 1 tablet ORAL BID - polyethylene glycol 3350 17 g packet (MIRALAX, GLYCOLAX) 17 g ORAL DAILY PRN - bisacodyl 10 mg suppository (DULCOLAX) 10 mg RECTAL DAILY PRN - acetaminophen 975 mg tab(s) (TYLENOL) 975 mg ORAL q 6 H - sodium chloride 0.65 % 2 [place] (AYR, OCEAN) 2 [place] EACH NOSTRIL PRN - therapeutic multivitamin with iron (THERAGRAN-M) 1 tablet ORAL DAILY - HYDROmorphone 1.5 mg injection (DILAUDID) 1.5 mg INTRAVENOUS q 3 H PRN - HYDROmorphone 4 mg tab(s) (DILAUDID) 4 mg ORAL q 3 H PRN - HYDROmorphone 6 mg tab(s) (DILAUDID) 6 mg ORAL q 4 H PRN PHYSICAL EXAM: BP 193/79 Pulse 103 Temp 36.9 ?C (98.4 ?F) (Temporal) Resp 21 Ht 172.7 cm (5' 8) Wt 109.3 kg (240 lb 15.4 oz) SpO2 95% BMI 36.64 kg/m? Body mass index is 36.64 kg/m?. General: NAD, AAOx3 Extremities: ? Evaluation of LUE - Long arm soft splint c/d/i. Able to flex slightly index and middle finger. Some sensation on the ulnar border of the thumb. Denies sensation elsewhere on the hand. Brisk capillary refill all digits. Compartments soft, compressible. Tolerates passive stretch of digits. DATA: CBC: Recent Labs 12/30/18 0400 WBC 8.32 RBC 2.98* HB 8.0* HCT 25.1* PLT 213 MCV 84.2 MCH 26.8 MPV 10.1 RDW 14.8* BMP: Recent Labs 12/30/18 0400 NA 138 K 3.7 CHLOR 105 CO2 25 BUN 16 CREAT 0.70 GLUC 100* IMAGING: no new images SIGNATURE: Bret Paniagua MD PAGER: [phone] DATE of SERVICE: 12/30/2018 TIME of SERVICE: 6:45 AM Normal [facility] Activated PTTon 12-29-2018 aPTT Coag (Bld) [Time] 56.3 s High 23.0-32.4 [facility] Comment on above: Result Comment: Unfr actionated Heparin Therapeutic Ranges: Standard Heparin Nomogram: 53 to 78 seconds (anti-Xa level of 0.3 to 0.7 U/mL) Low Dose/ACS Nomogram: 49 to 67 seconds (anti-Xa level of 0.2 to 0.5 U/mL) Stroke Treatment Nomogram: 49 to 67 seconds (anti-Xa level of 0.2 to 0.5 U/mL) Note: The APTT therapeutic range has been determined for the current lot of laboratory APTT reagent in use throughout the [facility]. Performed By: #### P 8 #### [place] [id number] aPTT Coag (Bld) [Time] 64.6 s High 23.0-32.4 [facility] Comment on above: Result Comment: Unfr actionated Heparin Therapeutic Ranges: Standard Heparin Nomogram: 53 to 78 seconds (anti-Xa level of 0.3 to 0.7 U/mL) Low Dose/ACS Nomogram: 49 to 67 seconds (anti-Xa level of 0.2 to 0.5 U/mL) Stroke Treatment Nomogram: 49 to 67 seconds (anti-Xa level of 0.2 to 0.5 U/mL) Note: The APTT therapeutic range has been determined for the current lot of laboratory APTT reagent in use throughout the [facility]. Performed By: #### P T #### [place] [address] Basic Panelon 12-29-2018 Creatinine [Mass/Vol] 0.68 mg/dL Normal 0.67-1.17 [facility] Comment on above: Performed By: #### P 8 #### [place] [address] Anion gap [Moles/Vol] 8 mmol/L Normal 8-16 [facility] Comment on above: Performed By: #### P 8 #### [place] [address] CO2 [Moles/Vol] 27 mmol/L Normal 21-32 [facility] Comment on above: Performed By: #### P 8 #### [place] [address] Glucose [Mass/Vol] 125 mg/dL High 70-99 [facility] Comment on above: Performed By: #### P 8 #### [place] [address] Urea nitrogen [Mass/Vol] 14 mg/dL Normal 7-18 [facility] Comment on above: Performed By: #### P 8 #### [facility] [address] [place], [place] [address] Calcium [Mass/Vol] 8.3 mg/dL Low 8.5-10.1 [facility] Comment on above: Performed By: #### P 8 #### [facility] [address] [place], [place] [address] Chloride [Moles/Vol] 106 mmol/L Normal 98-107 [facility] Comment on above: Performed By: #### P 8 #### [facility] [address] [place], [place] [address] Potassium [Moles/Vol] 3.5 mmol/L Normal 3.5-5.1 [facility] Comment on above: Performed By: #### P 8 #### [facility] [address] [place], [place] [address] Sodium [Moles/Vol] 137 mmol/L Normal 136-145 [facility] Comment on above: Performed By: #### P 8 #### [facility] [address] [place] [address] CASE MANAGEMon 12-29-2018 CASE MANAGEM HNO ID: [id number] Author: Zarina (Rn) SCOTTY Bone Service: Care Management Author Type: Registered Nurse Type: Care Mgt Progress Note Filed: 12/29/2018 12:11 PM Note Text: CARE MANAGEMENT PROGRESS NOTE SERVICE DATE: 12/29/2018 SERVICE TIME: 12:09 PM LOS: 4 days Needs Prior to Discharge: Discharge Prescriptions;To Be Determined Plan is for repeat IANDD and skin graft tomorrow. Will cont to follow for transitional care needs per surgery recommendations. SIGNATURE: Zarina Bone RN PATIENT NAME: Irene Nieto DATE: December 29, 2018 TIME: 12:09 PM PAGER/CONTACT #: [phone] [facility] CONSULTon 12-29-2018 CONSULT HNO ID: [id number] Author: Timothy Dias Service: Pain Management Author Type: Physician Type: Consults Filed: 12/30/2018 3:08 AM Note Text: PAIN CONSULTATION: Left arm pain IRENE NIETO 53 year old 24 HOUR COMFORT MEDICATIONS: Acetaminophen 975 mg ?4 Gabapentin 200 mg every 12 hours?refusing Hydromorphone 1 mg IV every 2 hours as needed ?3 Oxycodone 10 mg ?3 GI regimen Senna?S twice a day Subjective HPI: 53-year-old male, transferred from [facility] on 12/25/2018 secondary to avascular injury to his left upper extremity after a single incision distal biceps repair earlier that day. Approximately one week prior to his initial presentation, while constructing a pleural, the patient felt a sudden pop in his left arm, resulting in a rupture of his left distal biceps while lifting a heavy box. On the day of presentation, he underwent a left biceps repair with arthritis tendon button and screw. However, following that procedure he developed paresthesias in his left arm on the dorsal and volar aspects down to his fingers, and was unable to flex, extend his elbow, wrists, fingers, and there was concern that there was a brachial artery injury as a result of the surgery itself. He was taken emergently to the operating room from the emergency department here, where he underwent repair of the left radial artery, reimplantation of the left ulnar artery, left upper extremity fasciotomy and carpal tunnel release as well as a fasciotomy of the left forearm. During that surgery was identified that he had a laceration at the bifurcation of the ulnar and brachial arteries with compartment syndrome. He is now experiencing significant pain in his entire left arm, 8?9/10 in severity at its worst, with a sharp, throbbing component, that is definitely improved with keeping his arm elevated, aggravated when his arm is in a dependent position. He continues on acetaminophen 975 mg every 6 hours programmed and cannot tell if this is improving his pain, hydromorphone 1 mg IV per dose does improve his pain to less than 5/10, but it is unclear if he is getting more than 2-3 hours of relief per dose. Oxycodone even at 10 mg per dose, has not been associated with any improvement whatsoever. Gabapentin has been used at 200 mg every 12 hours, but he has been refusing doses, as he states that this is associated with weird neurologic sensation. His [place] prescription history is unremarkable except for one prescription for Nuvigil, and one prescription for [place]. 11/29/2018 1 11/28/2018 Armodafinil 150 MG Tablet 30 30 Pa Tri [id number] [place] ([id number]) 0 Private Pay [place] 11/25/201811/2511/25/2018 Hydrocodone-Acetamin 5-325 MG 10 3 Da Barbi [id number] [place] ([id number]) 0 16.67 MME Comm Ins [place] Current Facility-Administered Medications Medication Dose Route Frequency Provider Last Rate Last Dose - therapeutic multivitamin with iron (THERAGRAN-M) 1 tablet ORAL DAILY Georgi Espinoza - sodium chloride 0.65 % 2 [place] (AYR, OCEAN) 2 [place] EACH NOSTRIL PRN Mil Garzaim - senna-docusate 8.6-50 mg 1 tablet (SENNA-S) 1 tablet ORAL BID Michael Townsend 1 tablet at 12/29/18 0839 - polyethylene glycol 3350 17 g packet (MIRALAX, GLYCOLAX) 17 g ORAL DAILY PRN Michael Townsend 17 g at 12/26/18 1758 - bisacodyl 10 mg suppository (DULCOLAX) 10 mg RECTAL DAILY PRN Michael Townsend - acetaminophen 975 mg tab(s) (TYLENOL) 975 mg ORAL q 6 H Michael Townsend 975 mg at 12/29/18 1113 - oxyCODONE IR 5-10 mg tab(s) (ROXICODONE) 5-10 mg ORAL q 4 H PRN Michael Townsend 10 mg at 12/29/18 1112 - potassium chloride 80-120 mEq oral liquid 80-120 mEq ORAL/FEEDING TUBE PRN Michael Townsend - potassium chloride iv piggyback 20 mEq/100 mL 20 mEq INTRAVENOUS PRN Michael Townsend - magnesium sulfate in water 2 g in sterile water 50 ml 2 g INTRAVENOUS PRN Michael Townsend - sodium phosphate 45 mmol in NaCl 0.9% 250 mL 45 mmol INTRAVENOUS PRN Michael Townsend - calcium gluconate 4 g in NaCl 0.9% 250 mL 4 g INTRAVENOUS PRN Michael Townsend - ondansetron 4 mg tab(s) (ZOFRAN) 4 mg ORAL q 6 H PRN Michael Townsend Or - ondansetron (PF) 4 mg injection (ZOFRAN) 4 mg INTRAVENOUS q 6 H PRN Michael Townsend - heparin iv infusion (STANDARD NOMOGRAM) 25,000 units in NaCl 0.45% 250 mL PREMIX 0-3,000 Units/hr INTRAVENOUS CONTINUOUS Michael Townsend 19 mL/hr at 12/29/18 1000 1,900 Units/hr at 12/29/18 1000 And - heparin RATE CHANGE bolus 1,000-10,000 Units for subtherapeutic aptt results 1,000-10,000 Units INTRAVENOUS PRN Michael Townsend 4,400 Units at 12/28/18 2147 - NaCl 0.9% iv infusion 100 mL/hr INTRAVENOUS CONTINUOUS Michael Townsend 100 mL/hr at 12/27/18 0513 100 mL/hr at 12/27/18 0513 - Chlorhexidine Gluconate 0.12 % 15 mL (PERIDEX) 15 mL ORAL q 12 H Michael Townsend 15 mL at 12/25/18 2100 - hydrALAZINE 10 mg injection (APRESOLINE) 10 mg INTRAVENOUS q 4 H PRN Michael Townsend 10 mg at 12/29/18 1113 - HYDROmorphone 1 mg injection (DILAUDID) 1 mg INTRAVENOUS q 2 H PRN Michael Townsend 1 mg at 12/29/18 1259 - famotidine 20 mg tab(s) (PEPCID) 20 mg ORAL BID Michael Townsend 20 mg at 12/29/18 0839 - metoprolol 5 mg injection (LOPRESSOR) 5 mg INTRAVENOUS q 6 H PRN Michael Townsend 5 mg at 12/29/18 1300 - gabapentin 200 mg cap(s) (NEURONTIN) 200 mg ORAL q 12 H Michaelna Townsend 200 mg at 12/28/18 0900 Medications Prior to Admission: omeprazole (PRILOSEC) 20 mg capsule Take 20 mg by mouth once daily. Disp: Rfl: armodafinil (NUVIGIL) 150 mg tab Take 75 mg by mouth once daily. For shift work disorder Disp: Rfl: Social History Socioeconomic History Marital status: Spouse name: Not on file Number of children: Not on file Years of education: Not on file Highest education level: Not on file Social Needs Financial resource strain: Not on file Food insecurity - worry: Not on file Food insecurity - inability: Not on file Transportation needs - medical: Not on file Transportation needs - non-medical: Not on file Occupational History Not on file Tobacco Use Smoking status: Never Smoker Smokeless tobacco: Never Used Substance and Sexual Activity Alcohol use: No Drug use: No Sexual activity: Not on file Other Topics Concerns: Not on file Social History Narrative Not on file No family history on file. PAST SURGICAL HISTORY Procedure Laterality Date - PAST SURGICAL HISTORY OF left knee ROS: All of the following reviewed and negative except as noted below: GENERAL: no fever, chills, sweats, weight gain of 20-30 lbs, also associated fatigue, generalized weakness HEENT: no headache, vision changes, eye discomfort, hearing change, ear discomfort, sinus pain, nasal discharge or congestion, oral lesions, soreness, dental problem NECK: no adenopathy, discomfort, change in ROM CHEST: no shortness of breath, dyspnea on exertion, wheezing, cough, sputum production or chest pain HEART: no chest pain, palpitations, syncope ABDOMEN: no nausea, vomiting, constipation, diarrhea, abdominal pain : no dysuria, urgency, frequency, history of stones, incontinence NEURO: no confusion or alteration in consciousness, slurred speech, seizure, focal weakness EXTREMITIES: no new pain, but diffuse edema, see also history of present illness HEME: no new adenopathy, bruises, petechiae PSYCH: no depression, anxiety, agitation PHYSICAL EXAMINATION: see below for new or abnormal findings BP 145/66 Pulse 94 Temp 37 ?C (98.6 ?F) (Temporal) Resp 12 Ht 172.7 cm (5' 8) Wt 109.6 kg (241 lb 10 oz) SpO2 95% BMI 36.74 kg/m? BMI 36.74 kg/(m2) Date 12/29/18699 - 12/30/1859 Shift 8568-2726 2971-7035 2342-5997 24 Hour Total INTAKE PO 360 360 IV 34.6 34.6 Shift Total 394.6 394.6 OUTPUT Urine 325 325 Shift Total 325 325 Weight (kg) 109.6 109.6 109.6 109.6 Date 12/28/181499 - 12/29/1865812/29/18699 - 12/30/18 0659 Shift 2709-5305 5480-3406 24 Hour Total 5345-7497 7350-2202 2893-4741 24 Hour Total INTAKE PO 151 759 5009 360 360 PO 472 097 0967 360 360 IV 217 217 34.6 34.6 Heparin IV 217 217 34.6 34.6 Shift Total 692 296 8156 394.6 394.6 OUTPUT Urine 5727 838 8299 325 325 Void (ml) 6347 824 3037 325 325 Shift Total 4269 374 1062 325 325 Weight (kg) 109.2 109.6 109.6 109.6 109.6 109.6 109.6 GENERAL: well nourished and developed; no acute distress; alert and oriented x 3; intact judgement and insight HEENT: no evidence of trauma; cranial nerves intact; eyes clear EOMI; no hearing deficits apparent; nasal passages unremarkable; throat and mucous membranes clear NECK: supple without lymphadenopathy; no JVD; no thyromegaly CHEST: clear bilaterally to auscultation; normal chest movement; no rales or rhonchi HEART: regular rate and rhythm, normal S1 and S2, no murmurs, clicks, rubs, or gallops ABDOMEN: soft; nondistended; bowel sounds present; no hepatomegaly; no splenomegaly; no tenderness EXTREMITIES: no evidence of clubbing; no cyanosis; no deformity; no joint effusion; his left arm is extensively wrapped, fingers appeared to be unremarkable. He has massive edema, especially in the perineal region, and his legs. NEURO: cranial nerves intact; no focal deficits; no confusion; no tremor; sensorium normal SKIN: no rash; no skin breakdown; no decubitus lesions HEME: no bruising; no adenopathy PSYCH: no evidence of depression; no anxiety; no agitation; no apparent hallucinations PAIN PSYCHIATRIC EXAM: GENERAL: alert, oriented to person, place, time JUDGMENT AND INSIGHT: intact APPEARANCE: neatly groomed DEMEANOR: coooperative, not hostile, mistrustful, preoccupied, or demanding ACTIVITY: normal, not hyperactive or hypoactive, no tremors, tics EYE CONTACT: normal SPEECH: normal, rate, volume, articulation, coherence, spontaneity MOOD: normal, without overt sadness, grief, anxiety, appropriate to situation IDEATION: normal and without suicidal or homicidal ideation MEMORY: intact ABNORMAL/NEW FINDINGS: NONE RADIOLOGY/DIAGNOSTICS: LABORATORY: CBC: Recent Labs 12/29/18 0400 WBC 7.95 RBC 2.90* HB 7.9* HCT 24.7* PLT 183 MCV 85.2 MCH 27.2 MPV 10.0 RDW 14.8* CMP: Recent Labs 12/29/18 0400 NA 137 K 3.5 CHLOR 106 CO2 27 BUN 14 CREAT 0.68 GLUC 125* CA 8.3* ANION 8 Heme: No results for input(s): RETICP, ABSRETIC, LD, FRANCK, FE, TIBC, TRANSFERSAT in the last 24 hours. ASSESSMENT ACTIVE PROBLEM LIST Other and Unspecified Hyperlipidemia Essential hypertension, benign Degeneration of Intervertebral Disc, Site Unspecified Lumbago Tendonitis of Ankle Dilcia (Obstructive Sleep Apnea) Rhinitis Obesity, Class I, Bmi 30-34.9 Injury of Radial Artery At Forearm Level, Left, Initial Encounter Limb Ischemia Obesity, Class II, Bmi 35-39.9 PLAN: Left arm pain, status post repair of ruptured left biceps, status post repair of laceration at bifurcation of left radial and left ulnar artery, status post compartment syndrome?status post fasciotomy with plans for additional surgery on 12/30/2018. Inadequate pain control, no relief with oxycodone, Dilaudid providing temporary relief but well tolerated. Opiate naive prior to presentation. Definite relief with keeping his left arm elevated, exacerbated with his left arm and dependent position. Will discontinue oxycodone Changed to Dilaudid 4-6 mg every 3 hours as needed for pain orally Increase Dilaudid to 1.5 mg IV every 3 hours as needed for breakthrough pain. Anticipate will require opiates beyond this prescription, and anticipate need for opiate prescription at discharge. We will follow with you Timothy Dias M.D. Normal [facility] CPKon 12-29-2018 CK [Catalytic activity/Vol] 4817 U/L High 39-308 [facility] Comment on above: Performed By: #### P 8 #### [place] [address] CK [Catalytic activity/Vol] 5035 U/L High 39-308 [facility] Comment on above: Performed By: #### P 8 #### [place] [address] Hemogram/Diffon 12-29-2018 Abs Immature Grans 0.30 thou/cmm High 0.00-0.05 [facility] Comment on above: Performed By: #### P T #### [place] [address] Abs Neut (ANC) 5.61 thou/cmm High 1.78-5.38 [facility] Comment on above: Performed By: #### P T #### [address] [place], [place] [address] Abs. Baso 0.03 thou/cmm Normal 0.01-0.08 [facility] Comment on above: Performed By: #### P T #### [facility] [address] [place], [place] [address] Abs. [place] 0.72 thou/cmm Normal 0.30-0.82 [facility] Comment on above: Performed By: #### P T #### [facility] [address] [place], [place] [address] Basophils/100 WBC (Bld) 0.4 % Normal [facility] Comment on above: Performed By: #### P T #### [facility] [address] [place] [address] Eosinophils (Bld) [#/Vol] 0.08 thou/cmm Normal 0.04-0.54 [facility] Comment on above: Performed By: #### P T #### [facility] [address] [place], [place] [address] Eosinophils/100 WBC (Bld) 1.0 % Normal [facility] Comment on above: Performed By: #### P T #### [facility] [address] [place], [place] [address] Immature Grans 3.80 % Normal [facility] Comment on above: Performed By: #### P T #### [facility] [address] [place], [place] [address] Lymphocytes (Bld) [#/Vol] 1.20 thou/cmm Normal 0.84-2.85 [facility] Comment on above: Performed By: #### P T #### [facility] [address] [place], [place] [address] Lymphocytes/100 WBC (Bld) 15.1 % Normal [facility] Comment on above: Performed By: #### P T #### [facility] [address] [place], [place] [address] Monocytes/100 WBC (Bld) 9.1 % Normal [facility] Comment on above: Performed By: #### P T #### [facility] [address] [place] [address] Seg Neutrophil 70.6 % Normal [facility] Comment on above: Performed By: #### P T #### [facility] [address] [place] [address] Erythrocyte distribution width (RBC) [Ratio] 14.8 % High 11.6-14.4 [facility] Comment on above: Performed By: #### P T #### [facility] [address] [place] [address] Hematocrit (Bld) [Volume fraction] 24.7 % Low 40.1-51.0 [facility] Comment on above: Performed By: #### P T #### [facility] [address] [place] [address] Hemoglobin (Bld) [Mass/Vol] 7.9 g/dL Low 13.7-17.5 [facility] Comment on above: Performed By: #### P T #### [facility] [address] [place] [address] MCH (RBC) [Entitic mass] 27.2 pg Normal 25.7-32.2 [facility] Comment on above: Performed By: #### P T #### [facility] [address] [place] [address] MCHC (RBC) [Mass/Vol] 32.0 % Low 32.3-36.5 [facility] Comment on above: Performed By: #### P T #### [facility] [address] [place] [address] MCV (RBC) [Entitic vol] 85.2 fL Normal 83.2-95.6 [facility] Comment on above: Performed By: #### P T #### [facility] [address] [place] [address] Platelet mean volume (Bld) [Entitic vol] 10.0 fL Normal 8.7-12.0 [facility] Comment on above: Performed By: #### P T #### [facility] [address] [place] [address] Platelets (Bld) [#/Vol] 183 thou/cmm Normal 141-365 [facility] Comment on above: Performed By: #### P T #### [facility] [address] [place], [place] [address] RBC (Bld) [#/Vol] 2.90 mil/cmm Low 4.63-6.08 [facility] Comment on above: Performed By: #### P T #### [facility] [address] [place], [place] [address] RDW SD 46.5 fl High 36.1-45.8 [facility] Comment on above: Performed By: #### P T #### [facility] [address] [place], [place] [address] WBC (Bld) [#/Vol] 7.95 thou/cmm Normal 4.23-9.07 [facility] Comment on above: Performed By: #### P T #### [facility] [address] [place], [place] [address] PROGRESSon 12-29-2018 PROGRESS HNO ID: [id number] Author: Bonnie Guo Service: Vascular Surgery Author Type: Physician Type: Progress Notes Filed: 12/30/2018 6:05 PM Note Text: Vascular Surgery Progress Note SERVICE DATE: 12/29/2018 Vascular AND Thoracic Surgery Service Pager: For questions or concerns Mon-Sat 6a-5p please page [phone]. After 5pm and on Weekends and Holidays, please page [phone] if in ICU or [phone] if on RNF. Subjective SUBJECTIVE: NAEON. Still able to slightly move middle three fingers. He is having pain in his forearm. Pt is frustrated over being NPO and no plans for surgery today. Denies N/V/CP/SOB Diet: DIET REGULAR Objective OBJECTIVE: Vitals: BP 175/72 Pulse 92 Temp (Src) 99.1 (Temporal) Resp 20 Ht 5' 8 (1.73m) Wt 241 lb 10 oz (109.6kg) SpO2 96% BMI 36.75 kg/(m2). O2 Therapy: Room Air Temp (24hrs), Av.4 ?C (99.3 ?F), Min:37.3 ?C (99.1 ?F), Max:37.5 ?C (99.5 ?F) O2 Therapy: Room Air IANDO: Date 12/28/18 07 - 12/29/18 0659 12/29/18 07 - 12/30/18 0659 Shift 7732-9570 0526-5745 3331-4940 24 Hour Total 9920-7590 7315-5524 2488-7352 24 Hour Total INTAKE PO 960 580 049 9919 PO 960 566 364 5819 IV 217 217 Heparin IV 217 217 Shift Total 960 158 784 8775 OUTPUT Urine 950 5327 541 2605 Void (ml) 950 2647 780 4242 Shift Total 950 0664 725 3097 Weight (kg) 109.2 109.2 109.6 109.6 109.6 109.6 109.6 109.6 MEDICATIONS Current Facility-Administered Medications Medication Dose Route Frequency - sodium chloride 0.65 % 2 [place] (AYR, OCEAN) 2 [place] EACH NOSTRIL PRN - senna-docusate 8.6-50 mg 1 tablet (SENNA-S) 1 tablet ORAL BID - polyethylene glycol 3350 17 g packet (MIRALAX, GLYCOLAX) 17 g ORAL DAILY PRN - bisacodyl 10 mg suppository (DULCOLAX) 10 mg RECTAL DAILY PRN - acetaminophen 975 mg tab(s) (TYLENOL) 975 mg ORAL q 6 H - oxyCODONE IR 5-10 mg tab(s) (ROXICODONE) 5-10 mg ORAL q 4 H PRN - potassium chloride 80-120 mEq oral liquid 80-120 mEq ORAL/FEEDING TUBE PRN - potassium chloride iv piggyback 20 mEq/100 mL 20 mEq INTRAVENOUS PRN - magnesium sulfate in water 2 g in sterile water 50 ml 2 g INTRAVENOUS PRN - sodium phosphate 45 mmol in NaCl 0.9% 250 mL 45 mmol INTRAVENOUS PRN - calcium gluconate 4 g in NaCl 0.9% 250 mL 4 g INTRAVENOUS PRN - ondansetron 4 mg tab(s) (ZOFRAN) 4 mg ORAL q 6 H PRN Or - ondansetron (PF) 4 mg injection (ZOFRAN) 4 mg INTRAVENOUS q 6 H PRN - heparin iv infusion (STANDARD NOMOGRAM) 25,000 units in NaCl 0.45% 250 mL PREMIX 0-3,000 Units/hr INTRAVENOUS CONTINUOUS And - heparin RATE CHANGE bolus 1,000-10,000 Units for subtherapeutic aptt results 1,000-10,000 Units INTRAVENOUS PRN - NaCl 0.9% iv infusion 100 mL/hr INTRAVENOUS CONTINUOUS - Chlorhexidine Gluconate 0.12 % 15 mL (PERIDEX) 15 mL ORAL q 12 H - hydrALAZINE 10 mg injection (APRESOLINE) 10 mg INTRAVENOUS q 4 H PRN - HYDROmorphone 1 mg injection (DILAUDID) 1 mg INTRAVENOUS q 2 H PRN - famotidine 20 mg tab(s) (PEPCID) 20 mg ORAL BID - metoprolol 5 mg injection (LOPRESSOR) 5 mg INTRAVENOUS q 6 H PRN - gabapentin 200 mg cap(s) (NEURONTIN) 200 mg ORAL q 12 H Labs: Recent Labs 12/29/18 0400 12/28/18 0545 NA 137 138 K 3.5 3.8 CHLOR 106 106 CO2 27 27 BUN 14 12 CREAT 0.68 0.71 GLUC 125* 116* ANION 8 9 CA 8.3* 8.2* WBC 7.95 8.05 HB 7.9* 7.9* HCT 24.7* 25.2* PLT 183 148 No results for input(s): BODSITE, CTYPE, PH, PCO2, PO2, BE, HCO3, CO2CT, O2HB, COHB, MHGB, TEMP, PHTC, PCO2T, PO2T, O2AD in the last 72 hours. Exam: GENERAL: Alert, no distress, cooperative SKIN: Skin color, texture, turgor normal. No rashes or lesions. LUNGS: Unlabored breathing on O2 Therapy: Room Air on Liters: 2 sating at SpO2: 98 % CARDIAC: rate and rhythm as above, ABDOMEN: Benign, Soft, non-tender, No masses, hepatosplenomegaly and No lymphadenopathy EXTREMITIES: LUE minimal sensation, minor motor of middle three digits, pain in forearm, passive movement of all digits intact WOUND: clean, dry and intact ASSESSMENT AND PLAN: Assessment/Plan This is a 53 year old male s/p Exploration of LUE, repair of L radial artery, re-implation of L ulnar artery, LUE fasciotomy and carpal tunnel release. Repeat IANDD in OR 12/27 AM. ? -reg diet - IAND D with ortho 12/27: palpable pulses in OR with multiphasic doppler signals - CPK decreasing -Pain control -prn lopressor for BP control - No further vascular intervention at this time ? Assessment and plan discussed with attending: Dr. Guo SIGNATURE: Shayna Bullard MD PATIENT NAME: Irene Nieto DATE: December 29, 2018 TIME: 6:05 AM Pager: [phone] I saw and evaluated the patient. Discussed with the resident and agree with resident's findings and plan as documented in the resident's note.Clinically appearing depressed. Vascularity of the left hand seems to be appropriate and reasonable. Normal [facility] PROGRESS HNO ID: [id number] Author: Georgi Espinoza Service: Orthopaedic Surgery Author Type: Physician Type: Progress Notes Filed: 12/29/2018 3:09 PM Note Text: I evaluated the patient and personally participated in the sims components. I agree with the resident's findings and plan with the following revisions and/or additions: I discussed with Dr Winter who has experience in STSG. He plans I and D and possibe application wound vac tomorrow. Delay STSG if possibel to allow potential wound closure if edema allows. Discussed pain needs. Wishes to avoid Neurontin. PO meds not overly effective. Will consult pain managment for assistance. Also notes generalized edema. Explained that fluids shoud mobilze soon. Still on heparin. Will discuss with vascular when to stop heparin and potentially transfer to floor. Signature: Georgi Espinoza MD Service Date: 12/29/2018 Service Time: 3:05 PM ORTHOPAEDIC SURGERY DAILY PROGRESS NOTE Patient Name: Irene Nieto Date of Evaluation: 12/29/2018 Admission Date: 12/24/2018 Time of Evaluation: 6:02 AM ASSESSMENT: 53yo M POD#5?s/p L radial and ulnar artery repairs, L forearm volar fasciotomy, L CTR?POD#2 IANDD Left forearm? ? PLAN: - PT/OT:??Non Weight Bearing?left upper extremity? - DVT Prophylaxis:?Heparing gtt - Appreciate ICU recommendations - Vascular following, no plans for any intervention at this time - Post-op Abx:?Post-op Ancef: complete - Dressing:?Dry dressing, Long posterior splint - NPO starting at midnight tonight for repeat IANDD, skin grafting tomorrow INTERVAL HPI: Patient monitored, no new events overnight. Pt reports he is doing well. Pain is controlled. Denies fevers/chills. Denies nausea/vomitting. OBJECTIVE: BP 175/72 Pulse 101 Temp 37.3 ?C (99.1 ?F) (Temporal) Resp 17 Ht 172.7 cm (5' 8) Wt 109.2 kg (240 lb 11.9 oz) SpO2 100% BMI 36.60 kg/m? Intake/Output Summary (Last 24 hours) 12/28 2300 - 12/29 0659 In: 465 [PO:360; IV:105] Out: 725 [Urine:725] Exam: General: NAD, AAOx3 Extremities: Evaluation of LUE - Long arm soft splint c/d/i. Able to flex slightly index and middle finger. Some sensation on the ulnar border of the thumb. Denies sensation elsewhere on the hand. Brisk capillary refill all digits. Compartments soft, compressible. Tolerates passive stretch of digits. Labs: BMP: Sodium 137 12/29/2018 Potassium 3.5 12/29/2018 Chloride 106 12/29/2018 CO2 27 12/29/2018 BUN 14 12/29/2018 Creatinine 0.68 12/29/2018 Glucose 125 12/29/2018 CBC: WBC 7.95 12/29/2018 HGB 7.9 12/29/2018 Hematocrit 24.7 12/29/2018 Platelet Count 183 12/29/2018 COAGS: APTT 64.6 12/29/2018 INR 1.01 12/25/2018 Carlos Maki MD Resident, Orthopaedic Surgery Pager: [phone] 12/29/2018 6:02 AM Normal [facility] ALLIED HEALTHon 12-28-2018 ALLIED HEALTH HNO ID: [id number] Author: Chaplain Reed (Chaplain) Service: Spiritual Care Author Type: Leather Stitcher Type: Allied Health Filed: 12/28/2018 8:10 PM Note Text: SPIRITUALCARE Spiritual Care Visit- Brief Note Name: Irene Nieto Date: December 28, 2018 Notes: Pre-surgery patient Nothing needed tonight Made SP Care available. Leather Stitcher Signature: Chaplain Derek To contact the [facility] Department: Please call [phone] or Page the On-Call Leather Stitcher at pager [phone] Thank you for the opportunity to be of service. This is an electronically created document. IF PRINTED, PLEASE DO NOT REMOVE FROM THE CHART OR MODIFY PRINTED COPY. Normal [facility] Activated PTTon 12-28-2018 aPTT Coag (Bld) [Time] 51.3 s High 23.0-32.4 [facility] Comment on above: Result Comment: Unfr actionated Heparin Therapeutic Ranges: Standard Heparin Nomogram: 53 to 78 seconds (anti-Xa level of 0.3 to 0.7 U/mL) Low Dose/ACS Nomogram: 49 to 67 seconds (anti-Xa level of 0.2 to 0.5 U/mL) Stroke Treatment Nomogram: 49 to 67 seconds (anti-Xa level of 0.2 to 0.5 U/mL) Note: The APTT therapeutic range has been determined for the current lot of laboratory APTT reagent in use throughout the [facility]. Performed By: #### P T #### [address] [address] aPTT Coag (Bld) [Time] 50.1 s High 23.0-32.4 [facility] Comment on above: Result Comment: Unfr actionated Heparin Therapeutic Ranges: Standard Heparin Nomogram: 53 to 78 seconds (anti-Xa level of 0.3 to 0.7 U/mL) Low Dose/ACS Nomogram: 49 to 67 seconds (anti-Xa level of 0.2 to 0.5 U/mL) Stroke Treatment Nomogram: 49 to 67 seconds (anti-Xa level of 0.2 to 0.5 U/mL) Note: The APTT therapeutic range has been determined for the current lot of laboratory APTT reagent in use throughout the [facility]. Performed By: #### P T #### [address] [address] aPTT Coag (Bld) [Time] 39.6 s High 23.0-32.4 [facility] Comment on above: Result Comment: Unfr actionated Heparin Therapeutic Ranges: Standard Heparin Nomogram: 53 to 78 seconds (anti-Xa level of 0.3 to 0.7 U/mL) Low Dose/ACS Nomogram: 49 to 67 seconds (anti-Xa level of 0.2 to 0.5 U/mL) Stroke Treatment Nomogram: 49 to 67 seconds (anti-Xa level of 0.2 to 0.5 U/mL) Note: The APTT therapeutic range has been determined for the current lot of laboratory APTT reagent in use throughout the [facility]. Performed By: #### P T #### [facility] [address] [address] Basic Panelon 12-28-2018 Creatinine [Mass/Vol] 0.71 mg/dL Normal 0.67-1.17 [facility] Comment on above: Performed By: #### P T #### [place] [address] Anion gap [Moles/Vol] 9 mmol/L Normal 8-16 [facility] Comment on above: Performed By: #### P T #### [place] [address] CO2 [Moles/Vol] 27 mmol/L Normal 21-32 [facility] Comment on above: Performed By: #### P T #### [place] [address] Urea nitrogen [Mass/Vol] 12 mg/dL Normal 7-18 [facility] Comment on above: Performed By: #### P T #### [address] [address] Calcium [Mass/Vol] 8.2 mg/dL Low 8.5-10.1 [facility] Comment on above: Performed By: #### P T #### [facility] [address] [place], [place] [address] Glucose [Mass/Vol] 116 mg/dL High 70-99 [facility] Comment on above: Performed By: #### P T #### [address] [address] Chloride [Moles/Vol] 106 mmol/L Normal 98-107 [facility] Comment on above: Performed By: #### P T #### [facility] [address] [address] Potassium [Moles/Vol] 3.8 mmol/L Normal 3.5-5.1 [facility] Comment on above: Performed By: #### P T #### [facility] [address] [address] Sodium [Moles/Vol] 138 mmol/L Normal 136-145 [facility] Comment on above: Performed By: #### P T #### [facility] [address] [address] CPKon 12-28-2018 CK [Catalytic activity/Vol] 5911 U/L High 39-308 [facility] Comment on above: Performed By: #### P T #### [facility] [address] [address] CK [Catalytic activity/Vol] 6155 U/L High 39-308 [facility] Comment on above: Performed By: #### P T #### [facility] [address] [address] CK [Catalytic activity/Vol] 6835 U/L High 39-308 [facility] Comment on above: Performed By: #### P T #### [facility] [address] [address] Hemogram/Diffon 12-28-2018 Abs Immature Grans 0.16 thou/cmm High 0.00-0.05 [facility] Comment on above: Performed By: #### P T #### [place] [address] Abs Neut (ANC) 6.21 thou/cmm High 1.78-5.38 [facility] Comment on above: Performed By: #### P T #### [facility] [address] [address] Abs. Baso 0.01 thou/cmm Normal 0.01-0.08 [facility] Comment on above: Performed By: #### P T #### [place] [address] Abs. [place] 0.91 thou/cmm High 0.30-0.82 [facility] Comment on above: Performed By: #### P T #### [facility] [address] [place], [place] [address] Basophils/100 WBC (Bld) 0.1 % Normal [facility] Comment on above: Performed By: #### P T #### [facility] [address] [place], [place] [address] Eosinophils (Bld) [#/Vol] 0.04 thou/cmm Normal 0.04-0.54 [facility] Comment on above: Performed By: #### P T #### [facility] [address] [place], [place] [address] Eosinophils/100 WBC (Bld) 0.5 % Normal [facility] Comment on above: Performed By: #### P T #### [facility] [address] [address] Erythrocyte distribution width (RBC) [Ratio] 14.9 % High 11.6-14.4 [facility] Comment on above: Performed By: #### P T #### [facility] [address] [place], [place] [address] Hematocrit (Bld) [Volume fraction] 25.2 % Low 40.1-51.0 [facility] Comment on above: Performed By: #### P T #### [facility] [address] [place], [place] [address] Hemoglobin (Bld) [Mass/Vol] 7.9 g/dL Low 13.7-17.5 [facility] Comment on above: Performed By: #### P T #### [facility] [address] [place], [place] [address] Immature Grans 2.00 % Normal [facility] Comment on above: Performed By: #### P T #### [facility] [address] [place], [place] [address] Lymphocytes (Bld) [#/Vol] 0.72 thou/cmm Low 0.84-2.85 [facility] Comment on above: Performed By: #### P T #### [facility] [address] [place], [place] [address] Lymphocytes/100 WBC (Bld) 8.9 % Normal [facility] Comment on above: Performed By: #### P T #### [facility] [address] [place], [place] [address] MCH (RBC) [Entitic mass] 27.1 pg Normal 25.7-32.2 [facility] Comment on above: Performed By: #### P T #### [facility] [address] [address] MCHC (RBC) [Mass/Vol] 31.3 % Low 32.3-36.5 [facility] Comment on above: Performed By: #### P T #### [facility] [address] [address] MCV (RBC) [Entitic vol] 86.3 fL Normal 83.2-95.6 [facility] Comment on above: Performed By: #### P T #### [facility] [address] [address] Monocytes/100 WBC (Bld) 11.3 % Normal [facility] Comment on above: Performed By: #### P T #### [facility] [address] [address] Platelet mean volume (Bld) [Entitic vol] 10.7 fL Normal 8.7-12.0 [facility] Comment on above: Performed By: #### P T #### [facility] [address] [address] Platelets (Bld) [#/Vol] 148 thou/cmm Normal 141-365 [facility] Comment on above: Performed By: #### P T #### [facility] [address] [place], [place] [address] RBC (Bld) [#/Vol] 2.92 mil/cmm Low 4.63-6.08 [facility] Comment on above: Performed By: #### P T #### [facility] [address] [address] RDW SD 47.2 fl High 36.1-45.8 [facility] Comment on above: Performed By: #### P T #### [facility] [address] [place], [place] [address] Seg Neutrophil 77.2 % Normal [facility] Comment on above: Performed By: #### P T #### [facility] [address] [place], [place] [address] WBC (Bld) [#/Vol] 8.05 thou/cmm Normal 4.23-9.07 [facility] Comment on above: Performed By: #### P T #### [facility] [address] [place], [place] [address] PROGRESSon 12-28-2018 PROGRESS HNO ID: [id number] Author: Shayna (Juan Jose Bullard MD Service: Vascular Surgery Author Type: Resident Type: Progress Notes Filed: 12/28/2018 9:34 AM Note Text: -------- Attestation signed by Lo Solis at 12/28/2018 2:26 PM I saw and evaluated the patient. Discussed with the resident and agree with resident's findings and plan as documented in the resident's note. Pt sleeping. Slightly improved hand function. Vascular in tact. Further plans for washout/grafting per ortho. Lo Solis MD -------- Vascular Surgery Progress Note SERVICE DATE: 12/28/2018 Vascular AND Thoracic Surgery Service Pager: For questions or concerns Mon-Fri 6a-5p please page [phone]. After 5pm and on Weekends and Holidays, please page [phone] if in ICU or [phone] if on RNF. Subjective SUBJECTIVE: Ppt able to slightly move middle three fingers. Pt able to tell when hand is being touched. Denies N/V/CP/SOB Diet: DIET REGULAR Objective OBJECTIVE: Vitals: BP 172/85 Pulse 108 Temp (Src) 100.2 (Temporal) Resp 20 Ht 5' 8 (1.73m) Wt 251 lb 5.2 oz (114.0kg) SpO2 92% BMI 38.22 kg/(m2). Temp (24hrs), Av.3 ?C (99.1 ?F), Min:36.4 ?C (97.5 ?F), Max:38 ?C (100.4 ?F) O2 Therapy: Room Air IANDO: Date 12/27/18 07 - 12/28/18 0659 12/28/18 07 - 12/29/18 0659 Shift 8311-0410 0789-2659 7791-9406 24 Hour Total 2602-7682 4999-3712 4956-9429 24 Hour Total INTAKE PO 720 240 960 PO 720 240 960 IV 700 256 956 Cefazolin IV 100 100 Heparin IV 156 156 OR Crystalloid intake (mL) 700 700 Shift Total 7418 711 2240 OUTPUT Urine 372 770 0471 750 750 Void (ml) 856 195 7964 750 750 Shift Total 860 216 2941 750 750 Weight (kg) 113.2 113.2 113.2 113.2 114 114 114 114 MEDICATIONS Current Facility-Administered Medications Medication Dose Route Frequency - sodium chloride 0.65 % 2 [place] (AYR, OCEAN) 2 [place] EACH NOSTRIL PRN - senna-docusate 8.6-50 mg 1 tablet (SENNA-S) 1 tablet ORAL BID - polyethylene glycol 3350 17 g packet (MIRALAX, GLYCOLAX) 17 g ORAL DAILY PRN - bisacodyl 10 mg suppository (DULCOLAX) 10 mg RECTAL DAILY PRN - acetaminophen 975 mg tab(s) (TYLENOL) 975 mg ORAL q 6 H - oxyCODONE IR 5-10 mg tab(s) (ROXICODONE) 5-10 mg ORAL q 4 H PRN - potassium chloride 80-120 mEq oral liquid 80-120 mEq ORAL/FEEDING TUBE PRN - potassium chloride iv piggyback 20 mEq/100 mL 20 mEq INTRAVENOUS PRN - magnesium sulfate in water 2 g in sterile water 50 ml 2 g INTRAVENOUS PRN - sodium phosphate 45 mmol in NaCl 0.9% 250 mL 45 mmol INTRAVENOUS PRN - calcium gluconate 4 g in NaCl 0.9% 250 mL 4 g INTRAVENOUS PRN - ondansetron 4 mg tab(s) (ZOFRAN) 4 mg ORAL q 6 H PRN Or - ondansetron (PF) 4 mg injection (ZOFRAN) 4 mg INTRAVENOUS q 6 H PRN - heparin iv infusion (STANDARD NOMOGRAM) 25,000 units in NaCl 0.45% 250 mL PREMIX 0-3,000 Units/hr INTRAVENOUS CONTINUOUS And - heparin RATE CHANGE bolus 1,000-10,000 Units for subtherapeutic aptt results 1,000-10,000 Units INTRAVENOUS PRN - NaCl 0.9% iv infusion 100 mL/hr INTRAVENOUS CONTINUOUS - Chlorhexidine Gluconate 0.12 % 15 mL (PERIDEX) 15 mL ORAL q 12 H - hydrALAZINE 10 mg injection (APRESOLINE) 10 mg INTRAVENOUS q 4 H PRN - HYDROmorphone 1 mg injection (DILAUDID) 1 mg INTRAVENOUS q 2 H PRN - famotidine 20 mg tab(s) (PEPCID) 20 mg ORAL BID - metoprolol 5 mg injection (LOPRESSOR) 5 mg INTRAVENOUS q 6 H PRN - gabapentin 200 mg cap(s) (NEURONTIN) 200 mg ORAL q 12 H Labs: Recent Labs 12/28/18 0545 12/27/18 0520 12/26/18 0620 NA 138 136 138 K 3.8 3.8 4.2 CHLOR 106 106 106 CO2 27 25 24 BUN 12 10 12 CREAT 0.71 0.66* 0.79 GLUC 116* 130* 120* ANION 9 9 12 CA 8.2* 8.4* 8.2* WBC 8.05 10.26* 12.20* HB 7.9* 8.9* 10.1* HCT 25.2* 28.0* 32.4* PLT 148 133* 161 PH -- -- 7.388 PCO2 -- -- 41.7 PO2 -- -- 72.1* BE -- -- 0.1 Recent Labs 12/26/18 0620 PH 7.388 PCO2 41.7 PO2 72.1* BE 0.1 Exam: GENERAL: Alert, no distress, cooperative SKIN: Skin color, texture, turgor normal. No rashes or lesions. LUNGS: Unlabored breathing on O2 Therapy: Room Air on Liters: 2 sating at SpO2: 98 % CARDIAC: rate and rhythm as above, ABDOMEN: Benign, Soft, non-tender, No masses, hepatosplenomegaly and No lymphadenopathy EXTREMITIES: Abnormal findings: LUE minimal sensation, minor motor of middle three digits WOUND: clean, dry and intact ASSESSMENT AND PLAN: Assessment/Plan This is a 53 year old male s/p Exploration of LUE, repair of L radial artery, re-implation of L ulnar artery, LUE fasciotomy and carpal tunnel release. Repeat IANDD in OR 12/27 AM. ? -reg diet a - IAND D with ortho 12/27: palpable pulses in OR with multiphasic doppler signals - CPK decreasing -PO pain meds -prn lopressor for BP control ? Assessment and plan discussed with attending: Dr. Solis SIGNATURE: Shayna Bullard MD PATIENT NAME: Irene Nieto DATE: December 28, 2018 TIME: 6:05 AM Pager: [phone] Normal [facility] PROGRESS HNO ID: [id number] Author: Edin Rudolph Service: Orthopaedic Surgery Author Type: Resident Type: Progress Notes Filed: 12/28/2018 7:17 AM Note Text: ORTHOPAEDIC SURGERY POSTOP DAILY PROGRESS NOTE Patient Name: Irene Nieto Date of Evaluation: 12/28/2018 Admission Date: 12/24/2018 Time of Evaluation: 5:38 AM ASSESSMENT: 53yo M POD#4?s/p L radial and ulnar artery repairs, L forearm volar fasciotomy, L CTR POD#1 IANDD Left forearm PLAN: - PT/OT:??Non Weight Bearing?left upper extremity - DVT Prophylaxis:?Heparing gtt - Appreciate ICU recommendations - Vascular following - Post-op Abx:?Post-op Ancef: complete - Dressing:?Dry dressing, Long posterior splint - Plan for repeat IANDD?and possible grafting TBD INTERVAL HPI: Patient monitored, no new events overnight. Patient states that they are comfortable. Well Controlled pain. Denies nausea/vomitting. OBJECTIVE: BP 172/85 Pulse 109 Temp 37.9 ?C (100.2 ?F) (Temporal) Resp 15 Ht 172.7 cm (5' 8) Wt 113.2 kg (249 lb 9 oz) SpO2 92% BMI 37.95 kg/m? Intake/Output Summary (Last 24 hours) No intake/output data recorded. Exam: General: NAD, AAOx3 Extremities: Left Upper Extremity: Long posterior arm splint intact Dressing clean, dry and intact. Motor with index, middle flexion and extension only No sensation M/R/U/Ax Radial pulse palpable. Compartments soft, compressible. Tolerates passive stretch of digits. Labs: BMP: Sodium 136 12/27/2018 Potassium 3.8 12/27/2018 Chloride 106 12/27/2018 CO2 25 12/27/2018 BUN 10 12/27/2018 Creatinine 0.66 12/27/2018 Glucose 130 12/27/2018 CBC: WBC 10.26 12/27/2018 HGB 8.9 12/27/2018 Hematocrit 28.0 12/27/2018 Platelet Count 133 12/27/2018 COAGS: APTT 55.5 12/27/2018 INR 1.01 12/25/2018 SED RATE/CRP: No results found for this basename: wsr:*,crp:* Imaging: no new images Edin Rudolph MD Resident, Orthopaedic Surgery Pager #: [phone] 12/28/2018 5:38 AM Please page [phone] from 5p-6a and on weekends for any issues. Normal [facility] ANES Bertha 12-27-2018 ANES POST HNO ID: [id number] Author: Matt Alberto Service: Anesthesiology Author Type: Physician Type: Anesthesia PostOp Filed: 12/27/2018 4:51 PM Note Text: POST ANESTHESIA EVALUATION NOTE SERVICE DATE: 12/27/2018 SERVICE TIME: 4:51 PM : 1965 Vitals: 12/27/18 1300 12/27/18 1400 12/27/18 1500 12/27/18 1600 Temp: 36.6 ?C (97.9 ?F) 37.1 ?C (98.8 ?F) 37.3 ?C (99.1 ?F) 37.3 ?C (99.1 ?F) 12/27/18 1300 12/27/18 1400 12/27/18 1500 12/27/18 1600 Arterial BP 1: 135/71 154/74 162/79 165/80 BP: 12/27/18 1300 12/27/18 1400 12/27/18 1500 12/27/18 1600 Pulse: 107 97 96 100 12/27/18 1300 12/27/18 1400 12/27/18 1500 12/27/18 1600 Resp: 17 13 13 13 12/27/18 0930 12/27/18 0945 12/27/18 0955 12/27/18 1100 SpO2: 99% 91% 95% 100% Validated Vital Signs: Yes POST ANES STATUS: No apparent anesthetic complications. The patient is appropriately hydrated with stable respiratory and cardiovascular status. Patient has safe and adequate airway control. The patient has appropriate pain relief and no significant post operative nausea or vomiting. The patient has achieved baseline mental status. Intra-Operative Events: No Significant Anesthesia Events Further assessment by Anesthesia Service: None Other Remarks: SIGNATURE: Matt Alberto MD PATIENT NAME: Irene Nieto DATE: December 27, 2018 TIME: 4:51 PM PAGER/CONTACT #: [phone] [facility] ANES PREOPon 12-27-2018 ANES PREOP HNO ID: [id number] Author: Matt Alberto Service: Anesthesiology Author Type: Physician Type: Anesthesia PreOp Filed: 12/27/2018 7:39 AM Note Text: ANESTHESIOLOGY DAY OF SURGERY NOTE SERVICE DATE: 12/27/2018 SERVICE TIME: 7:38 AM : 1965 Procedure(s) (LRB): IANDD LEFT forearm, possible closure, possible placement wound vac (Left) Surgeon(s): Georgi Espinoza Estimated body mass index is 35.57 kg/m? as calculated from the following: Height as of this encounter: 172.7 cm (5' 8). Weight as of this encounter: 106.1 kg (233 lb 14.5 oz). Most recent hematocrit and potassium results: Hematocrit 28.0 12/27/2018 Potassium 3.8 12/27/2018 ANES DOS/PREOP NOTE: Vitals: 12/27/18 0516 12/27/18 0600 12/27/18 0630 12/27/18 0700 BP: 172/85 Pulse: 120 101 102 Resp: 17 17 Temp: 37.8 ?C (100 ?F) 37.3 ?C (99.1 ?F) TempSrc: SpO2: 100% 100% Weight: Height: ACTIVE PROBLEM LIST Other and Unspecified Hyperlipidemia Essential hypertension, benign Degeneration of Intervertebral Disc, Site Unspecified Lumbago Tendonitis of Ankle Dilcia (Obstructive Sleep Apnea) Rhinitis Obesity, Class I, Bmi 30-34.9 Injury of Radial Artery At Forearm Level, Left, Initial Encounter Limb Ischemia PAST MEDICAL HISTORY Diagnosis Date - Essential hypertension, benign - Injury of brachial artery, initial encounter 12/24/2018 - Lumbago - Obstructive sleep apnea PAST SURGICAL HISTORY Procedure Laterality Date - PAST SURGICAL HISTORY OF left knee No family history on file. Social History: Social History Tobacco Use - Smoking status: Never Smoker - Smokeless tobacco: Never Used Substance Use Topics - Alcohol use: No - Drug use: No No current facility-administered medications on file prior to encounter. Current Outpatient Medications on File Prior to Encounter: omeprazole (PRILOSEC) 20 mg capsule Take 20 mg by mouth once daily. armodafinil (NUVIGIL) 150 mg tab Take 75 mg by mouth once daily. For shift work disorder Current Facility-Administered Medications Medication Dose Route Frequency Provider Last Rate Last Dose - senna-docusate 8.6-50 mg 1 tablet (SENNA-S) 1 tablet ORAL BID Souleymane Gorman) Zandrain 1 tablet at 12/26/18 175 - polyethylene glycol 3350 17 g packet (MIRALAX, GLYCOLAX) 17 g ORAL DAILY PRN Souleymane Gorman) Rudionnein 17 g at 12/26/18 1758 - bisacodyl 10 mg suppository (DULCOLAX) 10 mg RECTAL DAILY PRN Souleymane España (Pa) - acetaminophen 975 mg tab(s) (TYLENOL) 975 mg ORAL q 6 H Ernesto Hernandezoschik 975 mg at 12/27/18 0513 - oxyCODONE IR 5-10 mg tab(s) (ROXICODONE) 5-10 mg ORAL q 4 H PRN Ernesto Hernadnezoschik 10 mg at 12/27/18512 - potassium chloride 80-120 mEq oral liquid 80-120 mEq ORAL/FEEDING TUBE PRN Mil Gambino - potassium chloride iv piggyback 20 mEq/100 mL 20 mEq INTRAVENOUS PRN Mil Gambino - magnesium sulfate in water 2 g in sterile water 50 ml 2 g INTRAVENOUS PRN Mil Gambino - sodium phosphate 45 mmol in NaCl 0.9% 250 mL 45 mmol INTRAVENOUS PRN [facility] - calcium gluconate 4 g in NaCl 0.9% 250 mL 4 g INTRAVENOUS PRN [facility] - ondansetron 4 mg tab(s) (ZOFRAN) 4 mg ORAL q 6 H PRN Mil Gambino Or - ondansetron (PF) 4 mg injection (ZOFRAN) 4 mg INTRAVENOUS q 6 H PRN Mil Gambino - heparin iv infusion (STANDARD NOMOGRAM) 25,000 units in NaCl 0.45% 250 mL PREMIX 0-3,000 Units/hr INTRAVENOUS CONTINUOUS Mil Gambino 13 mL/hr at 12/27/18 0556 1,300 Units/hr at 12/27/18555 And - heparin RATE CHANGE bolus 1,000-10,000 Units for subtherapeutic aptt results 1,000-10,000 Units INTRAVENOUS PRN Mil Gambino - NaCl 0.9% iv infusion 100 mL/hr INTRAVENOUS CONTINUOUS Souleymane España (Pa) 100 mL/hr at 12/27/18 0513 100 mL/hr at 12/27/18512 - Chlorhexidine Gluconate 0.12 % 15 mL (PERIDEX) 15 mL ORAL q 12 H Miguel Angel Thornton 15 mL at 12/25/182099 - hydrALAZINE 10 mg injection (APRESOLINE) 10 mg INTRAVENOUS q 4 H PRN Livan Funez 10 mg at 12/27/185 - HYDROmorphone 1 mg injection (DILAUDID) 1 mg INTRAVENOUS q 2 H PRN Todd Hieb 1 mg at 12/26/182056 - famotidine 20 mg tab(s) (PEPCID) 20 mg ORAL BID Livan Funez 20 mg at 12/26/182099 - metoprolol 5 mg injection (LOPRESSOR) 5 mg INTRAVENOUS q 6 H PRN Shayna Bullard MD 5 mg at 12/27/18515 - gabapentin 200 mg cap(s) (NEURONTIN) 200 mg ORAL q 12 H Todd Hieb 200 mg at 12/26/182056 Allergies: ALLERGIES Allergen Reactions - Sudafed [Pseudoephe* Other: See Comments Severe htn, elevated HR DOS EXAM: Adequate NPO status: Yes Anesthetic risks, benefits, alternatives, personnel and consent discussed: Yes Patient agrees to proceed: Yes Previous Anesthesia: No history of adverse event. Airway Assessment: MP 3; Neck ROM: Full ROM without neurologic symptoms; Airway Evaluation: Thick neck Symptoms of Sleep Apnea: Hypertension, Age over 50 (53 year old), Neck circumference > 15.75 inches and Male gender Dentition: Teeth intact Additional Physical Exam: Lungs: Patient health status unchanged since recent history and physical. See history and physical for exam findings. Cardiac: Patient health status unchanged since recent history and physical. See history and physical for exam findings. Additional Pertinent Findings: N/A Blood Products: Not anticipated for this procedure. Anesthetic Plan: General, Standard ASA Monitors Pain Management Plan: Parenteral or Oral ASA Class: 3 Other Medical Problems: None Chronic Beta Zaria medication administered within 24 hours: N/A I have interviewed and examined the patient. I have reviewed the medical record and/or the pre-anesthesia evaluation, pertinent labs, and test results. Significant changes in the patient's condition since the History and Physical, not otherwise documented in primary service progress notes: No This contains updated information obtained within 48 hours of Surgery/Procedure. SIGNATURE: Matt Alberto MD PATIENT NAME: Irene Nieto DATE: December 27, 2018 TIME: 7:37 AM CSN: [id number] Normal [facility] Activated PTTon 12-27-2018 aPTT Coag (Bld) [Time] 55.5 s High 23.0-32.4 [facility] Comment on above: Result Comment: Unfr actionated Heparin Therapeutic Ranges: Standard Heparin Nomogram: 53 to 78 seconds (anti-Xa level of 0.3 to 0.7 U/mL) Low Dose/ACS Nomogram: 49 to 67 seconds (anti-Xa level of 0.2 to 0.5 U/mL) Stroke Treatment Nomogram: 49 to 67 seconds (anti-Xa level of 0.2 to 0.5 U/mL) Note: The APTT therapeutic range has been determined for the current lot of laboratory APTT reagent in use throughout the [facility]. Performed By: #### A PTT #### [place] [address] Basic Panelon 12-27-2018 Creatinine [Mass/Vol] 0.66 mg/dL Low 0.67-1.17 [facility] Comment on above: Performed By: #### A PTT #### [facility] [address] [place], [place] [address] Urea nitrogen [Mass/Vol] 10 mg/dL Normal 7-18 [facility] Comment on above: Performed By: #### A PTT #### [facility] [address] [place], [place] [address] Anion gap [Moles/Vol] 9 mmol/L Normal 8-16 [facility] Comment on above: Performed By: #### A PTT #### [facility] [address] [place], [place] [address] Calcium [Mass/Vol] 8.4 mg/dL Low 8.5-10.1 [facility] Comment on above: Performed By: #### A PTT #### [facility] [address] [place], [place] [address] CO2 [Moles/Vol] 25 mmol/L Normal 21-32 [facility] Comment on above: Performed By: #### A PTT #### [facility] [address] [place], [place] [address] Glucose [Mass/Vol] 130 mg/dL High 70-99 [facility] Comment on above: Performed By: #### A PTT #### [facility] [address] [place], [place] [address] Chloride [Moles/Vol] 106 mmol/L Normal 98-107 [facility] Comment on above: Performed By: #### A PTT #### [facility] [address] [place], [place] [address] Potassium [Moles/Vol] 3.8 mmol/L Normal 3.5-5.1 [facility] Comment on above: Performed By: #### A PTT #### [facility] [address] [place], [place] [address] Sodium [Moles/Vol] 136 mmol/L Normal 136-145 [facility] Comment on above: Performed By: #### A PTT #### [facility] [address] [place], [place] [address] CPKon 12-27-2018 CK [Catalytic activity/Vol] 8755 U/L High 39-308 [facility] Comment on above: Performed By: #### A PTT #### [facility] [address] [place] [address] CK [Catalytic activity/Vol] [address] U/L High 39-308 [facility] Comment on above: Performed By: #### A PTT #### [facility] [address] [place] [address] Hemogram/Diffon 12-27-2018 Abs Immature Grans 0.16 thou/cmm High 0.00-0.05 [facility] Comment on above: Performed By: #### A PTT #### [place] [address] Abs Neut (ANC) 8.25 thou/cmm High 1.78-5.38 [facility] Comment on above: Performed By: #### A PTT #### [place] [address] Abs. Baso 0.01 thou/cmm Normal 0.01-0.08 [facility] Comment on above: Performed By: #### A PTT #### [place] [address] Abs. Vigo 1.17 thou/cmm High 0.30-0.82 [facility] Comment on above: Performed By: #### A PTT #### [place] [address] Basophils/100 WBC (Bld) 0.1 % Normal [facility] Comment on above: Performed By: #### A PTT #### [place] [address] Eosinophils (Bld) [#/Vol] 0.01 thou/cmm Low 0.04-0.54 [facility] Comment on above: Performed By: #### A PTT #### [place] [address] Eosinophils/100 WBC (Bld) 0.1 % Normal [facility] Comment on above: Performed By: #### A PTT #### [address] [address] Erythrocyte distribution width (RBC) [Ratio] 14.7 % High 11.6-14.4 [facility] Comment on above: Performed By: #### A PTT #### [place] [address] Hematocrit (Bld) [Volume fraction] 28.0 % Low 40.1-51.0 [facility] Comment on above: Performed By: #### A PTT #### [place] [address] Hemoglobin (Bld) [Mass/Vol] 8.9 g/dL Low 13.7-17.5 [facility] Comment on above: Performed By: #### A PTT #### [place] [address] Immature Grans 1.60 % Normal [facility] Comment on above: Performed By: #### A PTT #### [place] [address] Lymphocytes (Bld) [#/Vol] 0.66 thou/cmm Low 0.84-2.85 [facility] Comment on above: Performed By: #### A PTT #### [place] [address] Lymphocytes/100 WBC (Bld) 6.4 % Normal [facility] Comment on above: Performed By: #### A PTT #### [place] [address] MCH (RBC) [Entitic mass] 27.4 pg Normal 25.7-32.2 [facility] Comment on above: Performed By: #### A PTT #### [place] [address] MCHC (RBC) [Mass/Vol] 31.8 % Low 32.3-36.5 [facility] Comment on above: Performed By: #### A PTT #### [place] [address] MCV (RBC) [Entitic vol] 86.2 fL Normal 83.2-95.6 [facility] Comment on above: Performed By: #### A PTT #### [facility] [address] [place], [place] [address] Monocytes/100 WBC (Bld) 11.4 % Normal [facility] Comment on above: Performed By: #### A PTT #### [facility] [address] [place], [place] [address] Platelet mean volume (Bld) [Entitic vol] 9.7 fL Normal 8.7-12.0 [facility] Comment on above: Performed By: #### A PTT #### [facility] [address] [place], [place] [address] Platelets (Bld) [#/Vol] 133 thou/cmm Low 141-365 [facility] Comment on above: Performed By: #### A PTT #### [facility] [address] [place] [address] RBC (Bld) [#/Vol] 3.25 mil/cmm Low 4.63-6.08 [facility] Comment on above: Performed By: #### A PTT #### [facility] [address] [place] [address] RDW SD 46.0 fl High 36.1-45.8 [facility] Comment on above: Performed By: #### A PTT #### [facility] [address] [place], [place] [address] Seg Neutrophil 80.4 % Normal [facility] Comment on above: Performed By: #### A PTT #### [facility] [address] [place] [address] WBC (Bld) [#/Vol] 10.26 thou/cmm High 4.23-9.07 [facility] Comment on above: Performed By: #### A PTT #### [facility] [address] [place] [address] OPERATIVE NOon 12-27-2018 OPERATIVE NO HNO ID: [id number] Author: Georgi Espinoza Service: ? Author Type: Physician Type: Operative Report Filed: 12/28/2018 8:35 PM Note Text: [facility] - Operative Report IRENE NIETO : 1965 AGE: 53. SEX: M PATIENT TYPE: I [facility]OSP [facility]: [facility] LOCATION: [id number] ATTENDING PHYSICIAN: BONNIE GUO CSN NUMBER: [id number] DATE OF SURGERY/PROCEDURE: 12/27/2018 INCISION/PROCEDURE START TIME: 8:40 AM INCISION CLOSE/PROCEDURE END TIME: 9:03 AM PREOPERATIVE DIAGNOSIS: 1. Fasciotomy wound, left forearm. 2. Status post repair, left radial and ulnar arteries. POSTOPERATIVE DIAGNOSIS: 1. Fasciotomy wound, left forearm. 2. Status post repair, left radial and ulnar arteries. SURGEON: Georgi Espinoza MD SCHEDULING CLERK: Dr. Sargent and Dr. Townsend. SURGERY/PROCEDURE: Irrigation and debridement left forearm fasciotomy wound. ANESTHESIA: General. CLINICAL NOTE: This 53-year-old gentleman had an injury to his left radial and ulnar arteries approximately 3 days ago. He underwent a repair by the vascular surgical team with successful revascularization of his arm. He had prophylactic fasciotomies performed. He has maintained good circulation in the limb. He has remained insensate. He did develop active flexion of his index finger. He was brought to the operating room today for dressing change, inspection of his wound, and assessment for further wound management. OPERATIVE FINDINGS: At the time of surgery, he had hemorrhagic blisters in the antecubital region in the area of his previous biceps tendon repair and revascularization. His fasciotomy wound was wide open. The underlying muscle was pink and healthy. There was no areas of skin necrosis. He had some serous blisters on the dorsal ulnar side of his limb. Dorsal compartment was soft. Carpal tunnel incision was well approximated. He had good palpable pulses. DESCRIPTION OF PROCEDURE: Patient was brought to the operative theater where general endotracheal anesthesia was administered. The left limb was identified with appropriate time-out. We performed an initial irrigation of the fasciotomy wound utilizing gravity fed saline. A small amount of hematoma was evacuated. The underlying musculature was pink and viable. There was no areas of necrosis. There were some hemorrhagic blisters proximally, but the proximal wound itself was well approximated and no necrotic edges. The forearm was quite swollen. The skin flaps were not mobile enough to provide any closure. After irrigating and inspecting the wound, we simply redressed it. Adaptic with bacitracin was placed over the blistering. Adaptic with a moist 4 x 4 over the fasciotomy wound itself. A compressive bulky dressing with a posterior splint was then applied. Radial and ulnar arteries were checked at completion with palpation and Doppler were remaining patent. Patient was then awakened and transferred to the recovery room in satisfactory condition, having tolerated the procedure well. He received Ancef preoperatively as antibiotic prophylaxis. We will have further supportive care. Repeat inspection of the wound in 2 to 3 days. Most likely will require skin grafting and we will coordinate going forward. Georgi Espinoza MD GAV:[id number] Normal [facility] PROGRESSon 12-27-2018 PROGRESS HNO ID: [id number] Author: Shayna Bullard MD Service: Vascular Surgery Author Type: Resident Type: Progress Notes Filed: 12/27/2018 11:41 AM Note Text: -------- Attestation signed by Lo Solis at 12/27/2018 2:23 PM I saw and evaluated the patient. Discussed with the resident and agree with resident's findings and plan as documented in the resident's note. Pt seen in OR today. Pt with + pulses and distal signals. Grafts appear in tact and open. Pt with warm fingers, still with minimal motion. Pt will need to return to OR with ortho for STSG and further washout, TBD. Continue current mgmt. Lo Solis MD -------- Vascular Progress Note SERVICE DATE: 12/27/2018 Vascular AND Thoracic Surgery Service Pager: For questions or concerns Sat-Sat 6a-5p please page [phone]. After 5pm and on Weekends and Holidays, please page [phone] if in ICU or [phone] if on RNF. Subjective SUBJECTIVE: Pt appears unchanged overnight. Up to chair, pain controled. Has very minor motion of the first digit, no sensation. Denies N/V/CP/SOB Diet: DIET LIQUID Objective OBJECTIVE: Vitals: BP 172/85 Pulse 97 Temp (Src) 98.1 (Temporal Artery) Resp 14 Ht 5' 8 (1.73m) Wt 249 lb 9 oz (113.2kg) SpO2 95% BMI 37.95 kg/(m2). O2 Therapy: Room Air, Liters: 4 Temp (24hrs), Av.7 ?C (99.8 ?F), Min:36.7 ?C (98.1 ?F), Max:37.9 ?C (100.2 ?F) O2 Therapy: Room Air IANDO: Date 12/26/18699 - 12/27/1865812/27/18 07 - 12/28/18 0659 Shift 9283-4192 6930-8540 8362-4706 24 Hour Total 8501-6034 5626-3379 9153-7661 24 Hour Total INTAKE PO 768 564 9288 480 480 PO 518 187 6086 480 480 IV 8154 999 9575 700 700 NS 0.9% 0024 304 2097 Heparin IV 183 183 OR Crystalloid intake (mL) 700 700 Shift Total 1740 1063 2803 1180 1180 OUTPUT Urine 400 437 751 4362 Void (ml) 400 871 920 0313 # of BMs Number of BMs 0 x 0 x Shift Total 400 306 946 4762 Weight (kg) 106.1 106.1 106.1 106.1 113.2 113.2 113.2 113.2 MEDICATIONS Current Facility-Administered Medications Medication Dose Route Frequency - ceFAZolin iv piggyback 2 g in D5W (iso-osmotic) 100 mL (ANCEF) 2 g INTRAVENOUS ONCE - senna-docusate 8.6-50 mg 1 tablet (SENNA-S) 1 tablet ORAL BID - polyethylene glycol 3350 17 g packet (MIRALAX, GLYCOLAX) 17 g ORAL DAILY PRN - bisacodyl 10 mg suppository (DULCOLAX) 10 mg RECTAL DAILY PRN - acetaminophen 975 mg tab(s) (TYLENOL) 975 mg ORAL q 6 H - oxyCODONE IR 5-10 mg tab(s) (ROXICODONE) 5-10 mg ORAL q 4 H PRN - potassium chloride 80-120 mEq oral liquid 80-120 mEq ORAL/FEEDING TUBE PRN - potassium chloride iv piggyback 20 mEq/100 mL 20 mEq INTRAVENOUS PRN - magnesium sulfate in water 2 g in sterile water 50 ml 2 g INTRAVENOUS PRN - sodium phosphate 45 mmol in NaCl 0.9% 250 mL 45 mmol INTRAVENOUS PRN - calcium gluconate 4 g in NaCl 0.9% 250 mL 4 g INTRAVENOUS PRN - ondansetron 4 mg tab(s) (ZOFRAN) 4 mg ORAL q 6 H PRN Or - ondansetron (PF) 4 mg injection (ZOFRAN) 4 mg INTRAVENOUS q 6 H PRN - heparin iv infusion (STANDARD NOMOGRAM) 25,000 units in NaCl 0.45% 250 mL PREMIX 0-3,000 Units/hr INTRAVENOUS CONTINUOUS And - heparin RATE CHANGE bolus 1,000-10,000 Units for subtherapeutic aptt results 1,000-10,000 Units INTRAVENOUS PRN - NaCl 0.9% iv infusion 100 mL/hr INTRAVENOUS CONTINUOUS - Chlorhexidine Gluconate 0.12 % 15 mL (PERIDEX) 15 mL ORAL q 12 H - hydrALAZINE 10 mg injection (APRESOLINE) 10 mg INTRAVENOUS q 4 H PRN - HYDROmorphone 1 mg injection (DILAUDID) 1 mg INTRAVENOUS q 2 H PRN - famotidine 20 mg tab(s) (PEPCID) 20 mg ORAL BID - metoprolol 5 mg injection (LOPRESSOR) 5 mg INTRAVENOUS q 6 H PRN - gabapentin 200 mg cap(s) (NEURONTIN) 200 mg ORAL q 12 H Labs: Recent Labs 12/27/18 0520 12/26/18 0620 12/25/18 0640 12/25/18 0100 NA 136 138 138 138 K 3.8 4.2 4.1 4.4 CHLOR 106 106 106 106 CO2 25 24 26 22 BUN 10 12 10 12 CREAT 0.66* 0.79 0.81 0.78 GLUC 130* 120* 118* 141* ANION 9 12 10 14 CA 8.4* 8.2* 7.9* 7.9* WBC 10.26* 12.20* 8.87 13.42* HB 8.9* 10.1* 11.1* 12.3* HCT 28.0* 32.4* 34.8* 38.4* PLT 133* 161 162 216 LACT -- -- 1.1 -- INR -- -- -- 1.01 PH -- 7.388 7.360 -- PCO2 -- 41.7 47.1* -- PO2 -- 72.1* 132.0* -- BE -- 0.1 0.7 -- Recent Labs 12/26/18 0620 12/25/18 0640 PH 7.388 7.360 PCO2 41.7 47.1* PO2 72.1* 132.0* BE 0.1 0.7 Exam: GENERAL: Alert, no distress, cooperative SKIN: Skin color, texture, turgor normal. No rashes or lesions. LUNGS: Unlabored breathing on O2 Therapy: Room Air on Liters: 2 sating at SpO2: 98 % CARDIAC: rate and rhythm as above, ABDOMEN: Benign, Soft, non-tender, No masses, hepatosplenomegaly and No lymphadenopathy EXTREMITIES: Abnormal findings: LUE no sensation, easily palpable radial pulse, minor motor of first digit WOUND: clean, dry and intact, per ortho dressing to be changed today possibly ASSESSMENT AND PLAN: Assessment/Plan This is a 53 year old male s/p Exploration of LUE, repair of L radial artery, re-implation of L ulnar artery, LUE fasciotomy and carpal tunnel release. Repeat IANDD in OR 12/27 AM. ? -reg diet after OR - IAND D with ortho: palpable pulses in OR with multiphasic doppler signals - CPK decreasing -PO pain meds -prn lopressor for BP control ? Assessment and plan discussed with attending: Dr. Solis SIGNATURE: Shayna Bullard MD PATIENT NAME: Irene Nieto DATE: December 27, 2018 TIME: 6:05 AM Pager: [phone] Normal [facility] PROGRESS HNO ID: [id number] Author: Michael Townsend Service: Orthopaedic Surgery Author Type: Resident Type: Progress Notes Filed: 12/27/2018 9:34 AM Note Text: 53yo M POD#3?s/p L radial and ulnar artery repairs, L forearm volar fasciotomy, L CTR POD#0 IANDD Left forearm ? PLAN: - PT/OT:??Non Weight Bearing?left upper extremity - DVT Prophylaxis:?Heparing gtt - Appreciate ICU recommendations - Vascular following - Post-op Abx:?Post-op Ancef: complete - Dressing:?Dry dressing, Long posterior splint - Plan for repeat IANDD?and possible grafting TBD Michael Townsend MD [facility] PROGRESS HNO ID: [id number] Author: Carlos (Berna) MD Glynn Service: Orthopaedic Surgery Author Type: Resident Type: Progress Notes Filed: 12/27/2018 9:31 AM Note Text: ORTHOPAEDIC SURGERY DAILY PROGRESS NOTE Patient Name: Irene Nieto Date of Evaluation: 12/27/2018 Admission Date: 12/24/2018 Time of Evaluation: 7:35 AM ASSESSMENT: 53yo M POD#3 s/p L radial and ulnar artery repairs, L forearm volar fasciotomy, L CTR ? PLAN: - PT/OT:??Non Weight Bearing?left upper - DVT Prophylaxis:?Heparing gtt - Appreciate ICU recommendations - Vascular following - Post-op Abx:?Post-op Ancef: complete - Dressing:?Dry dressing, Long posterior splint - Plan for repeat IANDD and attempted delayed closure today, 12/27/18. INTERVAL HPI: Patient monitored, no new events overnight. Pt reports he is doing okay, a little groggy. Ready for surgery today. Has not eaten since last night. Denies nausea/vomitting. OBJECTIVE: BP 172/85 Pulse 102 Temp 37.8 ?C (100 ?F) Resp 17 Ht 172.7 cm (5' 8) Wt 106.1 kg (233 lb 14.5 oz) SpO2 100% BMI 35.57 kg/m? Intake/Output Summary (Last 24 hours) No intake/output data recorded. Exam: General: NAD, AAOx3 Extremities: Evaluation of LUE - Long arm splint intact. No sensation in R/U/M dermatomes. Motor intact with index finger flexion and extension only. Palpable radial pulse. Brisk capillary refill all digits. Compartments soft, compressible. Tolerates passive stretch of digits. Labs: BMP: Sodium 136 12/27/2018 Potassium 3.8 12/27/2018 Chloride 106 12/27/2018 CO2 25 12/27/2018 BUN 10 12/27/2018 Creatinine 0.66 12/27/2018 Glucose 130 12/27/2018 CBC: WBC 10.26 12/27/2018 HGB 8.9 12/27/2018 Hematocrit 28.0 12/27/2018 Platelet Count 133 12/27/2018 COAGS: APTT 55.5 12/27/2018 INR 1.01 12/25/2018 Carlos Maki MD Resident, Orthopaedic Surgery Pager: [phone] 12/27/2018 7:35 AM Normal [facility] Type and Screenon 12-27-2018 ABO group Nom (Bld) O Normal [facility] Comment on above: Performed By: #### A PTT #### [place] [address] Comment See Below Normal [facility] Comment on above: Result Comment: Scre en &/or Xmatch expires in 3 days at 12 midnight. Redraw patient at that time. Performed By: #### A PTT #### [place] [address] RH Type Positive Normal [facility] Comment on above: Performed By: #### A PTT #### [place] [address] Activated PTTon 12-26-2018 aPTT Coag (Bld) [Time] 77.0 s High 23.0-32.4 [facility] Comment on above: Result Comment: Unfr actionated Heparin Therapeutic Ranges: Standard Heparin Nomogram: 53 to 78 seconds (anti-Xa level of 0.3 to 0.7 U/mL) Low Dose/ACS Nomogram: 49 to 67 seconds (anti-Xa level of 0.2 to 0.5 U/mL) Stroke Treatment Nomogram: 49 to 67 seconds (anti-Xa level of 0.2 to 0.5 U/mL) Note: The APTT therapeutic range has been determined for the current lot of laboratory APTT reagent in use throughout the [facility]. Performed By: #### A PTT #### [place] [address] aPTT Coag (Bld) [Time] 74.0 s High 23.0-32.4 [facility] Comment on above: Result Comment: Unfr actionated Heparin Therapeutic Ranges: Standard Heparin Nomogram: 53 to 78 seconds (anti-Xa level of 0.3 to 0.7 U/mL) Low Dose/ACS Nomogram: 49 to 67 seconds (anti-Xa level of 0.2 to 0.5 U/mL) Stroke Treatment Nomogram: 49 to 67 seconds (anti-Xa level of 0.2 to 0.5 U/mL) Note: The APTT therapeutic range has been determined for the current lot of laboratory APTT reagent in use throughout the [facility]. Performed By: #### C BCD1 #### [place] [address] Basic Panelon 12-26-2018 Creatinine [Mass/Vol] 0.79 mg/dL Normal 0.67-1.17 [facility] Comment on above: Performed By: #### A PTT #### [address] [address] Anion gap [Moles/Vol] 12 mmol/L Normal 8-16 [facility] Comment on above: Performed By: #### A PTT #### [address] [address] CO2 [Moles/Vol] 24 mmol/L Normal 21-32 [facility] Comment on above: Performed By: #### A PTT #### [address] [address] Glucose [Mass/Vol] 120 mg/dL High 70-99 [facility] Comment on above: Performed By: #### A PTT #### [address] [address] Urea nitrogen [Mass/Vol] 12 mg/dL Normal 7-18 [facility] Comment on above: Performed By: #### A PTT #### [address] [address] Calcium [Mass/Vol] 8.2 mg/dL Low 8.5-10.1 [facility] Comment on above: Performed By: #### A PTT #### [address] [place] [address] Chloride [Moles/Vol] 106 mmol/L Normal 98-107 [facility] Comment on above: Performed By: #### A PTT #### [facility] [address] [place], [place] [address] Potassium [Moles/Vol] 4.2 mmol/L Normal 3.5-5.1 [facility] Comment on above: Performed By: #### A PTT #### [facility] [address] [place], [place] [address] Sodium [Moles/Vol] 138 mmol/L Normal 136-145 [facility] Comment on above: Performed By: #### A PTT #### [facility] [address] [place], [place] [address] Blood Gas Arterialon 019 Base Excess 0.1 mmol/L Normal -3.0-3.0 [facility] Comment on above: Performed By: #### C BCD1 #### [facility] [address] [place], [place] [address] HCO3 (Bld) [Moles/Vol] 24.6 mmol/L Normal 21.0-28.0 [facility] Comment on above: Performed By: #### C BCD1 #### [facility] [address] [place], [place] [address] O2% Sat Arterial 95.2 % Low 96.0-100.0 [facility] Comment on above: Performed By: #### C BCD1 #### [facility] [address] [place], [place] [address] PCO2 Arterial 41.7 mm Hg Normal 35.0-45.0 [facility] Comment on above: Performed By: #### C BCD1 #### [facility] [address] [place], [place] [address] pH Arterial 7.388 Normal 7.350-7.450 [facility] Comment on above: Performed By: #### C BCD1 #### [facility] [address] [place], [place] [address] PO2 Arterial 72.1 mm Hg Low 83.0-108.0 [facility] Comment on above: Performed By: #### C BCD1 #### [facility] [address] [place] [address] FIO2 28 % Normal [facility] Comment on above: Performed By: #### C BCD1 #### [facility] [address] [place] [address] CPKon 12-26-2018 CK [Catalytic activity/Vol] 455[address] U/L High 39-308 [facility] Comment on above: Performed By: #### A PTT #### [facility] [address] [place] [address] CK [Catalytic activity/Vol] [address] U/L High 39-308 [facility] Comment on above: Performed By: #### C BCD1 #### [facility] [address] [place] [address] Hemogram/Diffon 12-26-2018 Abs Immature Grans 0.13 thou/cmm High 0.00-0.05 [facility] Comment on above: Performed By: #### C BCD1 #### [facility] [address] [place] [address] Abs Neut (ANC) 9.60 thou/cmm High 1.78-5.38 [facility] Comment on above: Performed By: #### C BCD1 #### [facility] [address] [place] [address] Abs. Baso 0.02 thou/cmm Normal 0.01-0.08 [facility] Comment on above: Performed By: #### C BCD1 #### [facility] [address] [place] [address] Abs. [place] 1.46 thou/cmm High 0.30-0.82 [facility] Comment on above: Performed By: #### C BCD1 #### [facility] [address] [place] [address] Basophils/100 WBC (Bld) 0.2 % Normal [facility] Comment on above: Performed By: #### C BCD1 #### [place] [address] Eosinophils (Bld) [#/Vol] 0.02 thou/cmm Low 0.04-0.54 [facility] Comment on above: Performed By: #### C BCD1 #### [facility] [address] [place], [place] [address] Eosinophils/100 WBC (Bld) 0.2 % Normal [facility] Comment on above: Performed By: #### C BCD1 #### [facility] [address] [place] [address] Erythrocyte distribution width (RBC) [Ratio] 14.9 % High 11.6-14.4 [facility] Comment on above: Performed By: #### C BCD1 #### [facility] [address] [place] [address] Hematocrit (Bld) [Volume fraction] 32.4 % Low 40.1-51.0 [facility] Comment on above: Performed By: #### C BCD1 #### [place] [address] Hemoglobin (Bld) [Mass/Vol] 10.1 g/dL Low 13.7-17.5 [facility] Comment on above: Performed By: #### C BCD1 #### [facility] [address] [place] [address] Immature Grans 1.10 % Normal [facility] Comment on above: Performed By: #### C BCD1 #### [facility] [address] [place] [address] Lymphocytes (Bld) [#/Vol] 0.95 thou/cmm Normal 0.84-2.85 [facility] Comment on above: Performed By: #### C BCD1 #### [facility] [address] [place] [address] Lymphocytes/100 WBC (Bld) 7.8 % Normal [facility] Comment on above: Performed By: #### C BCD1 #### [facility] [address] [place] [address] MCH (RBC) [Entitic mass] 26.6 pg Normal 25.7-32.2 [facility] Comment on above: Performed By: #### C BCD1 #### [place] [address] MCHC (RBC) [Mass/Vol] 31.2 % Low 32.3-36.5 [facility] Comment on above: Performed By: #### C BCD1 #### [facility] [address] [place] [address] MCV (RBC) [Entitic vol] 85.3 fL Normal 83.2-95.6 [facility] Comment on above: Performed By: #### C BCD1 #### [facility] [address] [place] [address] Monocytes/100 WBC (Bld) 12.0 % Normal [facility] Comment on above: Performed By: #### C BCD1 #### [facility] [address] [place] [address] Platelet mean volume (Bld) [Entitic vol] 9.7 fL Normal 8.7-12.0 [facility] Comment on above: Performed By: #### C BCD1 #### [facility] [address] [place] [address] Platelets (Bld) [#/Vol] 161 thou/cmm Normal 141-365 [facility] Comment on above: Performed By: #### C BCD1 #### [facility] [address] [place] [address] RBC (Bld) [#/Vol] 3.80 mil/cmm Low 4.63-6.08 [facility] Comment on above: Performed By: #### C BCD1 #### [facility] [address] [place] [address] RDW SD 46.5 fl High 36.1-45.8 [facility] Comment on above: Performed By: #### C BCD1 #### [facility] [address] [place] [address] Seg Neutrophil 78.7 % Normal [facility] Comment on above: Performed By: #### C BCD1 #### [facility] [address] [place] [address] WBC (Bld) [#/Vol] 12.20 thou/cmm High 4.23-9.07 [facility] Comment on above: Performed By: #### C BCD1 #### [facility] [address] [place] [address] PROGRESSon 12-26-2018 PROGRESS HNO ID: [id number] Author: Livan Funez Service: Critical Care Author Type: Physician Type: Progress Notes Filed: 12/26/2018 1:13 PM Note Text: MICU - PROGRESS NOTE SERVICE DATE: December 26, 2018 Admission Date: 12/24/2018 AGE: [age] year old LOS: 1 days Subjective Extubated without difficulty yesterday. No acute events overnight. deines dyspnea/cough/phlegm. Some movement in left index finger. Objective PROBLEMS: ACTIVE PROBLEM LIST Other and Unspecified Hyperlipidemia Essential hypertension, benign Degeneration of Intervertebral Disc, Site Unspecified Lumbago Tendonitis of Ankle Dilcia (Obstructive Sleep Apnea) Rhinitis Obesity, Class I, Bmi 30-34.9 Injury of Radial Artery At Forearm Level, Left, Initial Encounter Limb Ischemia PAST MEDICAL HISTORY Diagnosis Date - Essential hypertension, benign - Injury of brachial artery, initial encounter 12/24/2018 - Lumbago - Obstructive sleep apnea PAST SURGICAL HISTORY Procedure Laterality Date - PAST SURGICAL HISTORY OF left knee Social History Socioeconomic History Marital status: Spouse name: Not on file Number of children: Not on file Years of education: Not on file Highest education level: Not on file Social Needs Financial resource strain: Not on file Food insecurity - worry: Not on file Food insecurity - inability: Not on file Transportation needs - medical: Not on file Transportation needs - non-medical: Not on file Occupational History Not on file Tobacco Use Smoking status: Never Smoker Smokeless tobacco: Never Used Substance and Sexual Activity Alcohol use: No Drug use: No Sexual activity: Not on file Other Topics Concerns: Not on file Social History Narrative Not on file VITAL SIGNS (last 24hrs min/max): Temp Av.9 ?C (100.2 ?F) Min: 30.2 ?C (86.4 ?F) Max: 38.7 ?C (101.7 ?F) Pulse Av.2 Min: 98 Max: 138 Arterial BP 1 Min: 121/67 Max: 186/84 Cuff No data recorded Pain Level: 6 Vital signs reviewed. BP 156/77 Pulse 107 Temp (Src) 99.5 (Temporal) Resp 18 Ht 5' 8 (1.73m) Wt 233 lb 14.5 oz (106.1kg) SpO2 97% BMI 35.57 kg/(m2). O2 Therapy: Room Air Temp (24hrs), Av.9 ?C (100.2 ?F), Min:30.2 ?C (86.4 ?F), Max:38.7 ?C (101.7 ?F) NET FLUID BALANCE Intake/Output Summary (Last 24 hours) at 12/26/2018 1304 Last data filed at 12/26/2018 1200 Gross per 24 hour Intake 5600 ml Output 2100 ml Net 3500 ml MEDICATIONS Current Facility-Administered Medications Medication Dose Route Frequency - potassium chloride 80-120 mEq oral liquid 80-120 mEq ORAL/FEEDING TUBE PRN - potassium chloride iv piggyback 20 mEq/100 mL 20 mEq INTRAVENOUS PRN - magnesium sulfate in water 2 g in sterile water 50 ml 2 g INTRAVENOUS PRN - sodium phosphate 45 mmol in NaCl 0.9% 250 mL 45 mmol INTRAVENOUS PRN - calcium gluconate 4 g in NaCl 0.9% 250 mL 4 g INTRAVENOUS PRN - ondansetron 4 mg tab(s) (ZOFRAN) 4 mg ORAL q 6 H PRN Or - ondansetron (PF) 4 mg injection (ZOFRAN) 4 mg INTRAVENOUS q 6 H PRN - heparin iv infusion (STANDARD NOMOGRAM) 25,000 units in NaCl 0.45% 250 mL PREMIX 0-3,000 Units/hr INTRAVENOUS CONTINUOUS And - heparin RATE CHANGE bolus 1,000-10,000 Units for subtherapeutic aptt results 1,000-10,000 Units INTRAVENOUS PRN - NaCl 0.9% iv infusion 150 mL/hr INTRAVENOUS CONTINUOUS - Chlorhexidine Gluconate 0.12 % 15 mL (PERIDEX) 15 mL ORAL q 12 H - hydrALAZINE 10 mg injection (APRESOLINE) 10 mg INTRAVENOUS q 4 H PRN - HYDROmorphone 1 mg injection (DILAUDID) 1 mg INTRAVENOUS q 2 H PRN - famotidine 20 mg tab(s) (PEPCID) 20 mg ORAL BID - metoprolol 5 mg injection (LOPRESSOR) 5 mg INTRAVENOUS q 6 H PRN - oxyCODONE-acetaminophen 5-325 mg 1-2 tablet (PERCOCET) 1-2 tablet ORAL q 4 H PRN - gabapentin 200 mg cap(s) (NEURONTIN) 200 mg ORAL q 12 H Lines, Drains, and Airways Line Peripheral Right Hand 20 Gauge -- days Arterial Line 12/24/182214 Arterial Line Right Radial 1 day Peripheral 12/24/182149 Right Arm 16 Gauge 1 day Drain External Collection Device 12/25/18 0100 Assessment 1 day PHYSICAL EXAM PERFORMED: General: conversational Cardiovascular: Regular rhythm Respiratory: Clear to auscultation Abdomen: Soft and Nontender Extremities: Edema- No, left arm in bandage dressing Neurologic: Awake, oriented, Alert, Follows commands and Moving all extremities Respiratory/Nursing Documentation: O2 Therapy: Room Air (12/26/18 1000) Invasive Ventilator Mode: Pressure Regulated Volume Control (12/25/18 08) Set Ventilator Respiratory Rate (BPM): 12 (12/25/18 0809) Total Respiratory Rate (BPM): 12 (12/25/18 08) Tidal Volume Set (mL): 520 (12/25/18 08) Exhaled Tidal Volume (mL): 519 (12/25/18 08) Minute Volume (L): 6.5 (12/25/18 08) Peak Inspiratory Pressure (cm H2O): 22 (12/25/18 08) PEEP/CPAP (cm H2O): 5 (12/25/18 0809) HEMODYNAMIC DATA: Reviewed NUTRITION: Enteral Feeds: Yes PO diet DATA: Diagnostic tests reviewed for today's visit, films/specimens were personally reviewed by me: Most recent labs and imaging results. LABS: Recent Labs 12/26/18 0620 12/25/18 0100 CK 13,544* < > 2,381* WBC 12.20* < > 13.42* RBC 3.80* < > 4.51* HB 10.1* < > 12.3* HCT 32.4* < > 38.4* MCV 85.3 < > 85.1 PLT 161 < > 216 GLUC 120* < > 141* BUN 12 < > 12 CREAT 0.79 < > 0.78 NA 138 < > 138 K 4.2 < > 4.4 CHLOR 106 < > 106 CO2 24 < > 22 CA 8.2* < > 7.9* PTSEC -- -- 10.5 APTT 77.0* < > 32.9* INR -- -- 1.01 < > = values in this interval not displayed. ABG: Recent Labs 12/26/18 0620 12/25/18 0640 PH 7.388 7.360 PO2 72.1* 132.0* PCO2 41.7 47.1* Assessment/Plan IMPRESSION: ? Anticipated post op resp insufficiency: resolved ? Difficult airway during the procedure ? S/p??Repair of L?Radial?Artery ? Hypertension ? H/o mild dilcia on REM sleep per sleep study in 2010, not on home CPAP ? Obesity ? PLAN: ? IS/increase ambulation ? To OR tomorrow for IANDD and closure ? Heparin gtt ? Pain control ? BP control ? ICu monitoring ? Pulm/CC s/o. ? Will be available for any perioperative needs. Please call with questions/concerns. SIGNATURE: Livan Funez MD PATIENT NAME: Irene Nieto DATE: December 26, 2018 TIME: 1:04 PM Normal [facility] PROGRESS HNO ID: [id number] Author: Georgi Espinoza Service: Orthopaedic Surgery Author Type: Physician Type: Progress Notes Filed: 12/26/2018 8:23 AM Note Text: I evaluated the patient and personally participated in the sims components. I agree with the resident's findings and plan with the following revisions and/or additions: Active index finger motion! Still no sensation. Plan dressing change, I and D possible closure in OR tomorrow. Signature: Georgi Espinoza MD Service Date: 12/26/2018 Service Time: 8:21 AM Orthopaedic INPATIENT PROGRESS NOTE ASSESSMENT: 53yo M POD#2 s/p L radial and ulnar artery repairs, L forearm volar fasciotomy, L CTR ? PLAN: - PT/OT: Non Weight Bearing left upper - DVT Prophylaxis: Heparing gtt - Appreciate ICU recommendations - Vascular following - Post-op Abx: Post-op Ancef: complete - Dressing: Dry dressing, Long posterior splint - Plan for repeat IANDD and attempted delayed closure tomorrow 12/27/18. - NPO midnight INTERVAL HPI: No acute events overnight. Pain controlled. Continues to have no feeling in his hand/digits. States that he is currently able to move his index finger MEDICATIONS: Current Facility-Administered Medications Medication Dose Route Frequency - potassium chloride 80-120 mEq oral liquid 80-120 mEq ORAL/FEEDING TUBE PRN - potassium chloride iv piggyback 20 mEq/100 mL 20 mEq INTRAVENOUS PRN - magnesium sulfate in water 2 g in sterile water 50 ml 2 g INTRAVENOUS PRN - sodium phosphate 45 mmol in NaCl 0.9% 250 mL 45 mmol INTRAVENOUS PRN - calcium gluconate 4 g in NaCl 0.9% 250 mL 4 g INTRAVENOUS PRN - ondansetron 4 mg tab(s) (ZOFRAN) 4 mg ORAL q 6 H PRN Or - ondansetron (PF) 4 mg injection (ZOFRAN) 4 mg INTRAVENOUS q 6 H PRN - heparin iv infusion (STANDARD NOMOGRAM) 25,000 units in NaCl 0.45% 250 mL PREMIX 0-3,000 Units/hr INTRAVENOUS CONTINUOUS And - heparin RATE CHANGE bolus 1,000-10,000 Units for subtherapeutic aptt results 1,000-10,000 Units INTRAVENOUS PRN - NaCl 0.9% iv infusion 150 mL/hr INTRAVENOUS CONTINUOUS - Chlorhexidine Gluconate 0.12 % 15 mL (PERIDEX) 15 mL ORAL q 12 H - fentaNYL 50 mcg/mL 25-50 mcg injection (SUBLIMAZE) 25-50 mcg INTRAVENOUS q 2 H PRN - hydrALAZINE 10 mg injection (APRESOLINE) 10 mg INTRAVENOUS q 4 H PRN - HYDROmorphone 1 mg injection (DILAUDID) 1 mg INTRAVENOUS q 2 H PRN - famotidine 20 mg tab(s) (PEPCID) 20 mg ORAL BID - metoprolol 5 mg injection (LOPRESSOR) 5 mg INTRAVENOUS q 6 H PRN - oxyCODONE-acetaminophen 5-325 mg 1-2 tablet (PERCOCET) 1-2 tablet ORAL q 4 H PRN - gabapentin 200 mg cap(s) (NEURONTIN) 200 mg ORAL q 12 H PHYSICAL EXAM: BP 156/77 Pulse 106 Temp 37.7 ?C (99.9 ?F) Resp 12 Ht 172.7 cm (5' 8) Wt 106.1 kg (233 lb 14.5 oz) SpO2 98% BMI 35.57 kg/m? Body mass index is 35.57 kg/m?. Exam: General: NAD, aox3 Extremities: Left Upper Extremity: Dressing clean, dry and intact. Denies sensation to light touch all 5 digits and m/r/u Unable to flex/extend thumb, middle, ring, and small finger +AROM index flex/extension Radial pulse palpable. Compartments soft, compressible. Passive ROM of finger present DATA: CBC: Recent Labs 12/25/18 0640 WBC 8.87 RBC 4.14* HB 11.1* HCT 34.8* PLT 162 MCV 84.1 MCH 26.8 MPV 9.3 RDW 14.6* BMP: Recent Labs 12/25/18 0640 NA 138 K 4.1 CHLOR 106 CO2 26 BUN 10 CREAT 0.81 GLUC 118* IMAGING: N/A SIGNATURE: Bret Paniagua MD PAGER: [phone] DATE of SERVICE: 12/26/2018 TIME of SERVICE: 6:05 AM Normal [facility] PROGRESS HNO ID: [id number] Author: Bonnie Guo Service: Vascular Surgery Author Type: Physician Type: Progress Notes Filed: 12/30/2018 6:04 PM Note Text: Vascular Progress Note SERVICE DATE: 12/26/2018 Vascular AND Thoracic Surgery Service Pager: For questions or concerns Mon-Fri 6a-5p please page [phone]. After 5pm and on Weekends and Holidays, please page [phone] if in ICU or [phone] if on RNF. Subjective SUBJECTIVE: Pt appears unchanged overnight. Tolerating diet, up to chair, pain controled. Has very minor motion of the first digit, no sensation. Denies N/V/CP/SOB Diet: DIET REGULAR Objective OBJECTIVE: Vitals: BP 156/77 Pulse 106 Temp (Src) 99.9 (Skin) Resp 12 Ht 5' 8 (1.73m) Wt 233 lb 14.5 oz (106.1kg) SpO2 98% BMI 35.57 kg/(m2). O2 Therapy: Room Air, Liters: 2 Temp (24hrs), Av.8 ?C (100.1 ?F), Min:30.2 ?C (86.4 ?F), Max:38.7 ?C (101.7 ?F) O2 Therapy: Room Air IANDO: Date 12/25/18 07 - 12/26/1865812/26/18 07 - 12/27/18 0659 Shift 6294-8825 1439-8615 7747-3203 24 Hour Total 0662-0786 9285-5621 2552-2884 24 Hour Total INTAKE PO 858 858 8247 PO 901 497 0348 IV 714.6 1303 1777 3794.6 NS 0.9% 570 1100 1600 3270 Heparin IV 58 138 177 373 Propofol IV 86.6 65 151.6 Shift Total 714.6 1863 2377 4954.6 OUTPUT Urine 950 044 148 9898 Output ( External Collection Device 12/25/18 0100 Assessment) 950 109 795 3070 Tubes 30 30 Output ([REMOVED] GI Feed 12/25/18 0210 Assessment Gastric Mouth 12/25/18 1050) 30 30 Shift Total 980 142 124 6157 Weight (kg) 106.1 106.1 106.1 106.1 106.1 106.1 106.1 106.1 MEDICATIONS Current Facility-Administered Medications Medication Dose Route Frequency - potassium chloride 80-120 mEq oral liquid 80-120 mEq ORAL/FEEDING TUBE PRN - potassium chloride iv piggyback 20 mEq/100 mL 20 mEq INTRAVENOUS PRN - magnesium sulfate in water 2 g in sterile water 50 ml 2 g INTRAVENOUS PRN - sodium phosphate 45 mmol in NaCl 0.9% 250 mL 45 mmol INTRAVENOUS PRN - calcium gluconate 4 g in NaCl 0.9% 250 mL 4 g INTRAVENOUS PRN - ondansetron 4 mg tab(s) (ZOFRAN) 4 mg ORAL q 6 H PRN Or - ondansetron (PF) 4 mg injection (ZOFRAN) 4 mg INTRAVENOUS q 6 H PRN - heparin iv infusion (STANDARD NOMOGRAM) 25,000 units in NaCl 0.45% 250 mL PREMIX 0-3,000 Units/hr INTRAVENOUS CONTINUOUS And - heparin RATE CHANGE bolus 1,000-10,000 Units for subtherapeutic aptt results 1,000-10,000 Units INTRAVENOUS PRN - NaCl 0.9% iv infusion 150 mL/hr INTRAVENOUS CONTINUOUS - Chlorhexidine Gluconate 0.12 % 15 mL (PERIDEX) 15 mL ORAL q 12 H - fentaNYL 50 mcg/mL 25-50 mcg injection (SUBLIMAZE) 25-50 mcg INTRAVENOUS q 2 H PRN - hydrALAZINE 10 mg injection (APRESOLINE) 10 mg INTRAVENOUS q 4 H PRN - HYDROmorphone 1 mg injection (DILAUDID) 1 mg INTRAVENOUS q 2 H PRN - famotidine 20 mg tab(s) (PEPCID) 20 mg ORAL BID - metoprolol 5 mg injection (LOPRESSOR) 5 mg INTRAVENOUS q 6 H PRN - oxyCODONE-acetaminophen 5-325 mg 1-2 tablet (PERCOCET) 1-2 tablet ORAL q 4 H PRN - gabapentin 200 mg cap(s) (NEURONTIN) 200 mg ORAL q 12 H Labs: Recent Labs 12/25/18 0640 12/25/18 0100 NA 138 138 K 4.1 4.4 CHLOR 106 106 CO2 26 22 BUN 10 12 CREAT 0.81 0.78 GLUC 118* 141* ANION 10 14 CA 7.9* 7.9* WBC 8.87 13.42* HB 11.1* 12.3* HCT 34.8* 38.4* PLT 162 216 LACT 1.1 -- INR -- 1.01 PH 7.360 -- PCO2 47.1* -- PO2 132.0* -- BE 0.7 -- Recent Labs 12/25/18 0640 PH 7.360 PCO2 47.1* PO2 132.0* BE 0.7 Exam: GENERAL: Alert, no distress, cooperative SKIN: Skin color, texture, turgor normal. No rashes or lesions. LUNGS: Unlabored breathing on O2 Therapy: Room Air on Liters: 2 sating at SpO2: 98 % CARDIAC: rate and rhythm as above, ABDOMEN: Benign, Soft, non-tender, No masses, hepatosplenomegaly and No lymphadenopathy EXTREMITIES: Abnormal findings: LUE no sensation, easily palpable radial pulse, minor motor of first digit WOUND: clean, dry and intact, per ortho dressing to be changed today possibly ASSESSMENT AND PLAN: Assessment/Plan This is a 53 year old male s/p Exploration of LUE, repair of L radial artery, re-implation of L ulnar artery, LUE fasciotomy and carpal tunnel release ? -reg diet -change dressing today -trend CPK until it begins decreasing -PO pain meds -prn lopressor for BP control ? Assessment and plan discussed with attending: Dr. Guo ? ? I saw and evaluated the patient. Discussed with the resident and agree with resident's findings and plan as documented in the resident's note. SIGNATURE: Todd Lugo MD PATIENT NAME: Irene Nieto DATE: December 26, 2018 TIME: 6:05 AM Pager: [phone] Normal [facility] ANES Bertha 12-25-2018 ANES POST HNO ID: [id number] Author: Yaw Mckeon Service: Anesthesiology Author Type: Physician Type: Anesthesia PostOp Filed: 12/25/2018 6:51 AM Note Text: POST ANESTHESIA EVALUATION NOTE SERVICE DATE: 12/25/2018 SERVICE TIME: 6:51 AM : 1965 Vitals: 12/25/18 0515 12/25/18 0530 12/25/18 0545 12/25/18 0600 Temp: 37.6 ?C (99.7 ?F) 37.5 ?C (99.5 ?F) 37.4 ?C (99.3 ?F) 37.4 ?C (99.3 ?F) 12/25/18 0515 12/25/18 0530 12/25/18 0545 12/25/18 0600 Arterial BP 1: 153/75 161/79 167/82 181/88 BP: 12/25/18 0515 12/25/18 0530 12/25/18 0545 12/25/18 0600 Pulse: 98 98 98 99 12/25/18 0515 12/25/18 0530 12/25/18 0545 12/25/18 0600 Resp: 12 13 13 14 12/25/18 0515 12/25/18 0530 12/25/18 0545 12/25/18 0600 SpO2: 98% 99% 99% 99% Validated Vital Signs: Yes POST ANES STATUS: No apparent anesthetic complications. The patient is appropriately hydrated with stable respiratory and cardiovascular status. Patient has safe and adequate airway control. The patient has appropriate pain relief and no significant post operative nausea or vomiting. The patient has achieved baseline mental status. Intra-Operative Events: No Significant Anesthesia Events Further assessment by Anesthesia Service: None Other Remarks: SIGNATURE: Yaw Mckeon MD PATIENT NAME: Irene Nieto DATE: December 25, 2018 TIME: 6:51 AM PAGER/CONTACT #: [facility] ANES PREOPon 12-25-2018 ANES PREOP HNO ID: [id number] Author: Yaw Mckeon Service: Anesthesiology Author Type: Physician Type: Anesthesia PreOp Filed: 12/24/2018 10:05 PM Note Text: ANESTHESIOLOGY DAY OF SURGERY NOTE SERVICE DATE: 12/24/2018 SERVICE TIME: 10:03 PM : 1965 Procedure(s) (LRB): EXPLORATION ARTERY BRACHIAL (N/A) Surgeon(s): Bonnie Guo Estimated body mass index is 33.45 kg/m? as calculated from the following: Height as of this encounter: 172.7 cm (5' 8). Weight as of this encounter: 99.8 kg (220 lb). Most recent hematocrit and potassium results: No results found for this basename: HCT,HEMATOCRIT,K,POTASSI UM ANES DOS/PREOP NOTE: Vitals: 12/24/18205812/24/182099 BP: (!) 197/112 Pulse: (!) 104 Resp: 16 Temp: 37 ?C (98.6 ?F) SpO2: 95% Weight: 99.8 kg (220 lb) Height: 172.7 cm (5' 8) ACTIVE PROBLEM LIST Other and Unspecified Hyperlipidemia Essential Hypertension, Benign Degeneration of Intervertebral Disc, Site Unspecified Lumbago Tendonitis of Ankle Dilcia (Obstructive Sleep Apnea) Rhinitis PAST MEDICAL HISTORY Diagnosis Date - Essential hypertension, benign - Lumbago - Obstructive sleep apnea PAST SURGICAL HISTORY Procedure Laterality Date - PAST SURGICAL HISTORY OF left knee No family history on file. Social History: Social History Tobacco Use - Smoking status: Never Smoker - Smokeless tobacco: Never Used Substance Use Topics - Alcohol use: No - Drug use: No No current facility-administered medications on file prior to encounter. Current Outpatient Medications on File Prior to Encounter: fluticasone (FLONASE) 50 mcg/actuation nasal spray Use 2 Sprays in each nostril once daily. Rinse mouth after use. Capsicum, Cayenne, 450 mg ORAL Cap Take 2 tablets by mouth once daily. RAMÍREZ READ ORAL Take 565 mg by mouth twice daily. zinc 30 mg once daily. CYANOCOBALAMIN, VITAMIN B-12, (VITAMIN B-12 ORAL) Take 1,000 mcg/day by mouth once daily. vitamin b complex (B COMPLEX 1) ORAL Tab Take 1 tablet by mouth once daily. CINNAMON BARK (CINNAMON ORAL) Take 450 mg by mouth twice daily. multivitamin (MULTIPLE VITAMIN) ORAL tablet Take 1 tablet by mouth once daily. Ascorbic Acid (VITAMIN C) 1,000 mg ORAL tablet Take 1,000 mg by mouth twice daily. melatonin 3 mg ORAL Tab Take 3 mg by mouth daily at bedtime. simvastatin (ZOCOR) 40 mg ORAL tablet Take 1 tablet by mouth daily at bedtime. (Patient not taking: Reported on 09/30/2018 ) Current Facility-Administered Medications Medication Dose Route Frequency Provider Last Rate Last Dose - NaCl 0.9% iv infusion 5-30 mL/hr INTRAVENOUS CONTINUOUS Danilo Sauceda (Medical Imaging Director) - heparin 1,500 Units in NaCl 0.9% 250 mL INTRAVENOUS ONCE Danilo Sauceda (Medical Imaging Director) Allergies: ALLERGIES Allergen Reactions - Sudafed [Pseudoephe* Other: See Comments Severe htn, elevated HR DOS EXAM: Adequate NPO status: Yes Anesthetic risks, benefits, alternatives, personnel and consent discussed: Yes Patient agrees to proceed: Yes Previous Anesthesia: No history of adverse event. Airway Assessment: MP 3; Neck ROM: Limited Flexion and Extension; Airway Evaluation: Thick neck Symptoms of Sleep Apnea: Hypertension, BMI > 35, Age over 50 (53 year old), Neck circumference > 15.75 inches and Male gender Dentition: Poor dentition Additional Physical Exam: Lungs: Patient health status unchanged since recent history and physical. See history and physical for exam findings. Cardiac: Patient health status unchanged since recent history and physical. See history and physical for exam findings. Additional Pertinent Findings: N/A Blood Products: Not anticipated for this procedure. Anesthetic Plan: General, Standard ASA Monitors and with rapid sequence induction for presumed full stomach Pain Management Plan: Parenteral or Oral ASA Class: 3E Other Medical Problems: None Chronic Beta Zaria medication administered within 24 hours: N/A I have interviewed and examined the patient. I have reviewed the medical record and/or the pre-anesthesia evaluation, pertinent labs, and test results. Significant changes in the patient's condition since the History and Physical, not otherwise documented in primary service progress notes: No This contains updated information obtained within 48 hours of Surgery/Procedure. SIGNATURE: Yaw Mckeon MD PATIENT NAME: Irene Nieto DATE: December 24, 2018 TIME: 10:03 PM CSN: [id number] Normal [facility] Activated PTTon 12-25-2018 aPTT Coag (Bld) [Time] 82.4 s Critically high 23.0-32. 4 [facility] Comment on above: Result Comment: Unfr actionated Heparin Therapeutic Ranges: Standard Heparin Nomogram: 53 to 78 seconds (anti-Xa level of 0.3 to 0.7 U/mL) Low Dose/ACS Nomogram: 49 to 67 seconds (anti-Xa level of 0.2 to 0.5 U/mL) Stroke Treatment Nomogram: 49 to 67 seconds (anti-Xa level of 0.2 to 0.5 U/mL) Note: The APTT therapeutic range has been determined for the current lot of laboratory APTT reagent in use throughout the [facility]. Performed By: #### C BCD1 #### [place] [address] aPTT Coag (Bld) [Time] 91.2 s Critically high 23.0-32. 4 [facility] Comment on above: Result Comment: Unfr actionated Heparin Therapeutic Ranges: Standard Heparin Nomogram: 53 to 78 seconds (anti-Xa level of 0.3 to 0.7 U/mL) Low Dose/ACS Nomogram: 49 to 67 seconds (anti-Xa level of 0.2 to 0.5 U/mL) Stroke Treatment Nomogram: 49 to 67 seconds (anti-Xa level of 0.2 to 0.5 U/mL) Note: The APTT therapeutic range has been determined for the current lot of laboratory APTT reagent in use throughout the [facility]. Performed By: #### A PTT #### [place] [address] aPTT Coag (Bld) [Time] 32.9 s High 23.0-32.4 [facility] Comment on above: Result Comment: Unfr actionated Heparin Therapeutic Ranges: Standard Heparin Nomogram: 53 to 78 seconds (anti-Xa level of 0.3 to 0.7 U/mL) Low Dose/ACS Nomogram: 49 to 67 seconds (anti-Xa level of 0.2 to 0.5 U/mL) Stroke Treatment Nomogram: 49 to 67 seconds (anti-Xa level of 0.2 to 0.5 U/mL) Note: The APTT therapeutic range has been determined for the current lot of laboratory APTT reagent in use throughout the [facility]. Performed By: #### A PTT #### [address] [address] Basic Panelon 12-25-2018 Creatinine [Mass/Vol] 0.81 mg/dL Normal 0.67-1.17 [facility] Comment on above: Performed By: #### C BCD1 #### [facility] [address] [place], [place] [address] Anion gap [Moles/Vol] 10 mmol/L Normal 8-16 [facility] Comment on above: Performed By: #### C BCD1 #### [facility] [address] [place], [place] [address] CO2 [Moles/Vol] 26 mmol/L Normal 21-32 [facility] Comment on above: Performed By: #### C BCD1 #### [facility] [address] [place], [place] [address] Glucose [Mass/Vol] 118 mg/dL High 70-99 [facility] Comment on above: Performed By: #### C BCD1 #### [facility] [address] [place], [place] [address] Urea nitrogen [Mass/Vol] 10 mg/dL Normal 7-18 [facility] Comment on above: Performed By: #### C BCD1 #### [facility] [address] [place], [place] [address] Calcium [Mass/Vol] 7.9 mg/dL Low 8.5-10.1 [facility] Comment on above: Performed By: #### C BCD1 #### [facility] [address] [place], [place] [address] Chloride [Moles/Vol] 106 mmol/L Normal 98-107 [facility] Comment on above: Performed By: #### C BCD1 #### [facility] [address] [place], [place] [address] Potassium [Moles/Vol] 4.1 mmol/L Normal 3.5-5.1 [facility] Comment on above: Performed By: #### C BCD1 #### [facility] [address] [place], [place] [address] Sodium [Moles/Vol] 138 mmol/L Normal 136-145 [facility] Comment on above: Performed By: #### C BCD1 #### [facility] [address] [place], [place] [address] Creatinine [Mass/Vol] 0.78 mg/dL Normal 0.67-1.17 [facility] Comment on above: Performed By: #### P 8 #### [facility] [address] [place], [place] [address] Anion gap [Moles/Vol] 14 mmol/L Normal 8-16 [facility] Comment on above: Performed By: #### P 8 #### [facility] [address] [place], [place] [address] Calcium [Mass/Vol] 7.9 mg/dL Low 8.5-10.1 [facility] Comment on above: Performed By: #### P 8 #### [facility] [address] [place], [place] [address] CO2 [Moles/Vol] 22 mmol/L Normal 21-32 [facility] Comment on above: Performed By: #### P 8 #### [facility] [address] [place], [place] [address] Glucose [Mass/Vol] 141 mg/dL High 70-99 [facility] Comment on above: Performed By: #### P 8 #### [facility] [address] [place], [place] [address] Urea nitrogen [Mass/Vol] 12 mg/dL Normal 7-18 [facility] Comment on above: Performed By: #### P 8 #### [facility] [address] [place], [place] [address] Chloride [Moles/Vol] 106 mmol/L Normal 98-107 [facility] Comment on above: Performed By: #### P 8 #### [facility] [address] [place], [place] [address] Potassium [Moles/Vol] 4.4 mmol/L Normal 3.5-5.1 [facility] Comment on above: Performed By: #### P 8 #### [facility] [address] [place], [place] [address] Sodium [Moles/Vol] 138 mmol/L Normal 136-145 [facility] Comment on above: Performed By: #### P 8 #### [facility] [address] [place], [place] [address] Blood Gas Arterialon 019 Base Excess 0.7 mmol/L Normal -3.0-3.0 [facility] Comment on above: Performed By: #### A BG #### [facility] [address] [place] [address] HCO3 (Bld) [Moles/Vol] 25.9 mmol/L Normal 21.0-28.0 [facility] Comment on above: Performed By: #### A BG #### [place] [address] O2% Sat Arterial 98.8 % Normal 96.0-100.0 [facility] Comment on above: Performed By: #### A BG #### [place] [address] PCO2 Arterial 47.1 mm Hg High 35.0-45.0 [facility] Comment on above: Performed By: #### A BG #### [place] [address] pH Arterial 7.360 Normal 7.350-7.450 [facility] Comment on above: Performed By: #### A BG #### [place] [address] PO2 Arterial 132.0 mm Hg High 83.0-108.0 [facility] Comment on above: Performed By: #### A BG #### [place] [address] FIO2 30 % Normal [facility] Comment on above: Performed By: #### A BG #### [place] [address] CASE MGT INIT ASSESon 2018 CASE MGT INIT ASSES HNO ID: [id number] Author: Zarina (Rn) SCOTTY Bone Service: Care Management Author Type: Registered Nurse Type: Care Mgt Initial Assessment Filed: 12/25/2018 3:26 PM Note Text: CARE MANAGEMENT: ASSESSMENT AND DISCHARGE PLAN SERVICE DATE: 12/25/2018 SERVICE TIME: 3:21 PM PRIMARY CARE PHYSICIAN: Luis Enrique Napier MD ADMISSION STATUS: Inpatient Needs Prior to Discharge: Discharge Prescriptions;To Be Determined MEDICAL: Patient/Epic Prelude Analyst Stated Goals: To have reduction in pain To have reduction in symptoms To improve my functional status To return home to life as it was To be cured/healed Health Insurance: [email or web address] PPO None Health Issues Impacting Discharge Plan: Newly diagnosed compartment syndrome, s/p lt radial ulnar artery repair and fasciotomy Last Admission Date: none Is this Within the Past 30 days? No Advance Directive: Current Advance Directive: None Agronomy Location Manager Attempted to Assist with AD Completion: Yes Action: Patient Unwilling Health Literacy: 1. How often do you need to have someone help you when you read instructions, pamphlets, or other written material from your doctor or pharmacy? Never - 1 2. How confident are you filling out medical forms by yourself? Extremely - 1 If Patient scores > 3 on either question, the following interventions were put into place: Patient did not score > 3 FUNCTIONAL AND COGNITIVE/BEHAVIORAL PRIOR TO ADMISSION: Baseline Mental Status: Alert AND Oriented, Person, Place , Time and Situation Functional Status: Independent Does Patient Currently Receive Any Community Services or Home Care? None Equipment Prior to Admission: None Has the Patient Been in a Fci Facility in the Past 30 days? No SOCIAL: Living Arrangement: Home Lives With: Spouse Financial Resources: Employed: [employer] Primary Contact: Extended Emergency Contact Information Primary Emergency Contact: Inga Nieto Address: [address] [place] [id number] Mobile Relation: Spouse Supportive: Yes Other Important Patient Contacts: None Caregiver Assessment: Caregiver is ready, willing and able to meet the patient's needs as recommended by the inter-professional team? Yes Patient's transition needs and plan for meeting these needs: tbd, home Does the patient have an acute stroke diagnosis, or has the patient had a stroke during this admission? No Medication Adherence: I am convinced of the importance of my prescription medication: Agree completely - 0 I worry that my prescription medication will do more harm than good to me Disagree completely - 0 I feel financially burdened by my [id number] expenses for my prescription medication: Disagree completely - 0 Patient is categorized as low risk < 2 Are you interested in bedside delivery of your medications? No Food Concerns: In the Last Month, Have You had Trouble Getting Food? No trouble getting food During the Last Month, Have You Worried Whether Your Food Would Run Out Before You Had Enough Money to Buy More? No Is the Patient Psychosocially Complex? No ASSESSMENT AND PLAN: Medical Needs: None Psychosocial Needs: None FREEDOM OF CHOICE EXPLAINED: N/A POTENTIAL TRANSITION PLANS Home To Be Determined Met with pt, explained CM role. 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 RX from [facility] retail pharmacy. S/p lt radial ulnar artery repair and fasciotomy. Pt states plan is to have fasciotomy closed this weekend. Hope is to return home at disch. Will follow for disch needs. SIGNATURE: Zarina Bone RN PATIENT NAME: Irene Nieto DATE: December 25, 2018 TIME: 3:20 PM PAGER/CONTACT #: [phone] [facility] CONSULTon 12-25-2018 CONSULT HNO ID: [id number] Author: Arthur Gibson Service: Critical Care Author Type: Physician Type: Consults Filed: 12/25/2018 3:37 AM Note Text: CRITICAL CARE CONSULT NOTE SERVICE DATE: 12/25/2018 SERVICE TIME: 2:10 AM REASON FOR CONSULT: post op vent management REQUESTING PHYSICIAN: Bonnie Guo ADMITTING PROVIDER: Bonnie Guo SERVICE DATE: 12/25/2018 SERVICE TIME: 2:10 AM Admission Date: 12/24/2018 AGE: [age] year old LOS: 0 days Subjective Patient seen post op History obtained from the chart as patient is sedated and intubated Patient was transferred from [place] today for concern of brachial artery injury after surgical left biceps repair, he underwent an exploration of his LUE with hematoma evacuation, Left radial artery repair, re implantation of left unlar artery and LUE fasciotomy with carpal tunnel release , patientwas transferred to the CVICU sedated and intubated Objective PROBLEMS: ACTIVE PROBLEM LIST Other and Unspecified Hyperlipidemia Essential hypertension, benign Degeneration of Intervertebral Disc, Site Unspecified Lumbago Tendonitis of Ankle Dilcia (Obstructive Sleep Apnea) Rhinitis Obesity, Class I, Bmi 30-34.9 Injury of Radial Artery At Forearm Level, Left, Initial Encounter Limb Ischemia PAST MEDICAL HISTORY Diagnosis Date - Essential hypertension, benign - Injury of brachial artery, initial encounter 12/24/2018 - Lumbago - Obstructive sleep apnea PAST SURGICAL HISTORY Procedure Laterality Date - PAST SURGICAL HISTORY OF left knee Social History Socioeconomic History Marital status: Spouse name: Not on file Number of children: Not on file Years of education: Not on file Highest education level: Not on file Social Needs Financial resource strain: Not on file Food insecurity - worry: Not on file Food insecurity - inability: Not on file Transportation needs - medical: Not on file Transportation needs - non-medical: Not on file Occupational History Not on file Tobacco Use Smoking status: Never Smoker Smokeless tobacco: Never Used Substance and Sexual Activity Alcohol use: No Drug use: No Sexual activity: Not on file Other Topics Concerns: Not on file Social History Narrative Not on file VITAL SIGNS (last 24hrs min/max): Temp Av.4 ?C (99.4 ?F) Min: 36.6 ?C (97.9 ?F) Max: 38.1 ?C (100.6 ?F) Pulse Av Min: 98 Max: 146 Arterial BP 1 Min: 174/88 Max: 198/96 Cuff BP Min: 197/112 Max: 197/112 Pain Level: 0 Vital signs reviewed. BP 197/112 Pulse 99 Temp (Src) 100.6 (Skin) Resp 11 Ht 5' 8 (1.73m) Wt 220 lb 7.4 oz (100.0kg) SpO2 99% BMI 33.53 kg/(m2). O2 Therapy: Ventilator, %FIO2: 30 Temp (24hrs), Av.4 ?C (99.4 ?F), Min:36.6 ?C (97.9 ?F), Max:38.1 ?C (100.6 ?F) NET FLUID BALANCE No intake or output data in the 24 hours ending 12/25/18 0210 MEDICATIONS Current Facility-Administered Medications Medication Dose Route Frequency - meperidine (PF) 12.5 mg injection (DEMEROL) 12.5 mg INTRAVENOUS q 10 MIN PRN - fentaNYL 50 mcg/mL 50 mcg injection (SUBLIMAZE) 50 mcg INTRAVENOUS q 5 MIN PRN - HYDROmorphone 0.5 mg injection (DILAUDID) 0.5 mg INTRAVENOUS q 10 MIN PRN - oxyCODONE IR 5 mg tab(s) (ROXICODONE) 5 mg ORAL PRN - ondansetron (PF) 4 mg injection (ZOFRAN) 4 mg INTRAVENOUS PRN - potassium chloride 80-120 mEq oral liquid 80-120 mEq ORAL/FEEDING TUBE PRN - potassium chloride iv piggyback 20 mEq/100 mL 20 mEq INTRAVENOUS PRN - magnesium sulfate in water 2 g in sterile water 50 ml 2 g INTRAVENOUS PRN - sodium phosphate 45 mmol in NaCl 0.9% 250 mL 45 mmol INTRAVENOUS PRN - calcium gluconate 4 g in NaCl 0.9% 250 mL 4 g INTRAVENOUS PRN - ondansetron 4 mg tab(s) (ZOFRAN) 4 mg ORAL q 6 H PRN Or - ondansetron (PF) 4 mg injection (ZOFRAN) 4 mg INTRAVENOUS q 6 H PRN - heparin iv infusion (STANDARD NOMOGRAM) 25,000 units in NaCl 0.45% 250 mL PREMIX 0-3,000 Units/hr INTRAVENOUS CONTINUOUS And - heparin RATE CHANGE bolus 1,000-10,000 Units for subtherapeutic aptt results 1,000-10,000 Units INTRAVENOUS PRN - heparin nomogram - NO INITIAL BOLUS OTHER ONCE (heparin bolus) - NaCl 0.9% iv infusion 150 mL/hr INTRAVENOUS CONTINUOUS - fentaNYL 50 mcg/mL 25 mcg injection (SUBLIMAZE) 25 mcg INTRAVENOUS q 2 H PRN - Chlorhexidine Gluconate 0.12 % 15 mL (PERIDEX) 15 mL ORAL q 12 H - famotidine 20 mg injection (PEPCID) 20 mg INTRAVENOUS q 12 H - propofol infusion (DIPRIVAN) 5-60 mcg/kg/min INTRAVENOUS CONTINUOUS - fentaNYL 50 mcg/mL 25-50 mcg injection (SUBLIMAZE) 25-50 mcg INTRAVENOUS q 2 H PRN Lines, Drains, and Airways Line Peripheral Right Hand 20 Gauge -- days Arterial Line 12/24/182214 Arterial Line Right Radial less than 1 day Peripheral 12/24/182149 Right Arm 16 Gauge less than 1 day Airway Airway Endotracheal Tube -- days PHYSICAL EXAM PERFORMED: Gen: sedated in NAD Cardiovascular: Regular rhythm Respiratory: Clear to auscultation %FIO2 Min: 30 Max: 30 Abdomen: Soft and Nontender Extremities: left upper extremities wrapped, right upper extremity with radial Essence Neurologic: Sedated Respiratory/Nursing Documentation: O2 Therapy: Ventilator () Invasive Ventilator Mode: Pressure Regulated Volume Control () Set Ventilator Respiratory Rate (BPM): 12 () Total Respiratory Rate (BPM): 15 () Tidal Volume Set (mL): 500 () Exhaled Tidal Volume (mL): 541 () Minute Volume (L): 6.8 () Peak Inspiratory Pressure (cm H2O): 18 () PEEP/CPAP (cm H2O): 5 () HEMODYNAMIC DATA: Reviewed NUTRITION: Enteral Feeds: No NPO DATA: Diagnostic tests reviewed for today's visit, films/specimens were personally reviewed by me: Most recent labs and imaging results. LABS: Recent Labs CK 2,381* WBC 13.42* RBC 4.51* HB 12.3* HCT 38.4* MCV 85.1 PLT 216 GLUC 141* BUN 12 CREAT 0.78 NA 138 K 4.4 CHLOR 106 CO2 22 CA 7.9* PTSEC 10.5 APTT 32.9* INR 1.01 ABG: Invalid input(s): [id number] Assessment/Plan IMPRESSION: Critical Care Documentation: The patient has the following organ/system impairment(s): Anticipated post op resp insufficiency Difficult airway during the procedure S/p Repair of L Radial Artery hypertension DILCIA Obesity CRITICAL CARE PLAN: Will keep sedated and intubated overnight Vent adjusted as patient was double triggering SAT SBT in am with possible extubation BP management with caution pepcid Heparin drip Pain control Rest per primary team This patient has a high probability of sudden, clinically significant deterioration, which requires the highest level of physician preparedness to intervene urgently. I managed/supervised life or organ supporting interventions that required frequent physician assessment. I devoted my full attention to the direct care of this patient for the amount of time indicated below. Time I spent with family or surrogate(s) is included only if the patient was incapable of providing the necessary information or participating in medical decision making. Time devoted to teaching is not included. Discussed with staff Time spent providing critical care services: 35 minutes excluding procedures. SIGNATURE: Arthur Gibson MD PATIENT NAME: Irene Nieto DATE: December 25, 2018 TIME: 2:10 AM Normal [facility] CPKon 12-25-2018 CK [Catalytic activity/Vol] [address] U/L High 39-308 [facility] Comment on above: Performed By: #### C BCD1 #### [facility] [address] [place] [address] CK [Catalytic activity/Vol] [address] U/L High 39-308 [facility] Comment on above: Performed By: #### C BCD1 #### [facility] [address] [place] [address] CK [Catalytic activity/Vol] 7634 U/L High 39-308 [facility] Comment on above: Performed By: #### C BCD1 #### [facility] [address] [place] [address] CK [Catalytic activity/Vol] 2381 U/L High 39-308 [facility] Comment on above: Performed By: #### C K #### [facility] [address] [place] [address] Hemogram/Diffon 12-25-2018 Abs Immature Grans 0.05 thou/cmm Normal 0.00-0.05 [facility] Comment on above: Performed By: #### C BCD1 #### [facility] [address] [place] [address] Abs Neut (ANC) 6.91 thou/cmm High 1.78-5.38 [facility] Comment on above: Performed By: #### C BCD1 #### [facility] [address] [place] [address] Abs. Baso 0.02 thou/cmm Normal 0.01-0.08 [facility] Comment on above: Performed By: #### C BCD1 #### [facility] [address] [place] [address] Abs. Vigo 0.83 thou/cmm High 0.30-0.82 [facility] Comment on above: Performed By: #### C BCD1 #### [facility] [address] [place] [address] Basophils/100 WBC (Bld) 0.2 % Normal [facility] Comment on above: Performed By: #### C BCD1 #### [place] [address] Eosinophils (Bld) [#/Vol] 0.01 thou/cmm Low 0.04-0.54 [facility] Comment on above: Performed By: #### C BCD1 #### [facility] [address] [place], [place] [address] Eosinophils/100 WBC (Bld) 0.1 % Normal [facility] Comment on above: Performed By: #### C BCD1 #### [facility] [address] [place] [address] Erythrocyte distribution width (RBC) [Ratio] 14.6 % High 11.6-14.4 [facility] Comment on above: Performed By: #### C BCD1 #### [facility] [address] [place] [address] Hematocrit (Bld) [Volume fraction] 34.8 % Low 40.1-51.0 [facility] Comment on above: Performed By: #### C BCD1 #### [place] [address] Hemoglobin (Bld) [Mass/Vol] 11.1 g/dL Low 13.7-17.5 [facility] Comment on above: Performed By: #### C BCD1 #### [place] [address] Immature Grans 0.60 % Normal [facility] Comment on above: Performed By: #### C BCD1 #### [place] [address] Lymphocytes (Bld) [#/Vol] 1.05 thou/cmm Normal 0.84-2.85 [facility] Comment on above: Performed By: #### C BCD1 #### [facility] [address] [place] [address] Lymphocytes/100 WBC (Bld) 11.8 % Normal [facility] Comment on above: Performed By: #### C BCD1 #### [facility] [address] [place] [address] MCH (RBC) [Entitic mass] 26.8 pg Normal 25.7-32.2 [facility] Comment on above: Performed By: #### C BCD1 #### [address], [place] [address] MCHC (RBC) [Mass/Vol] 31.9 % Low 32.3-36.5 [facility] Comment on above: Performed By: #### C BCD1 #### [facility] [address] [place] [address] MCV (RBC) [Entitic vol] 84.1 fL Normal 83.2-95.6 [facility] Comment on above: Performed By: #### C BCD1 #### [facility] [address] [place] [address] Monocytes/100 WBC (Bld) 9.4 % Normal [facility] Comment on above: Performed By: #### C BCD1 #### [facility] [address] [place] [address] Platelet mean volume (Bld) [Entitic vol] 9.3 fL Normal 8.7-12.0 [facility] Comment on above: Performed By: #### C BCD1 #### [facility] [address] [place] [address] Platelets (Bld) [#/Vol] 162 thou/cmm Normal 141-365 [facility] Comment on above: Performed By: #### C BCD1 #### [facility] [address] [place] [address] RBC (Bld) [#/Vol] 4.14 mil/cmm Low 4.63-6.08 [facility] Comment on above: Performed By: #### C BCD1 #### [facility] [address] [place] [address] RDW SD 44.4 fl Normal 36.1-45.8 [facility] Comment on above: Performed By: #### C BCD1 #### [facility] [address] [place] [address] Seg Neutrophil 77.9 % Normal [facility] Comment on above: Performed By: #### C BCD1 #### [facility] [address] [place] [address] WBC (Bld) [#/Vol] 8.87 thou/cmm Normal 4.23-9.07 [facility] Comment on above: Performed By: #### C BCD1 #### [facility] [address] [place] [address] Abs Immature Grans 0.13 thou/cmm High 0.00-0.05 [facility] Comment on above: Performed By: #### C BCD1 #### [facility] [address] [place] [address] Abs Neut (ANC) 11.18 thou/cmm High 1.78-5.38 [facility] Comment on above: Performed By: #### C BCD1 #### [facility] [address] [place] [address] Abs. Baso 0.01 thou/cmm Normal 0.01-0.08 [facility] Comment on above: Result Comment: Smea r scanned; tech agrees with automated differential Performed By: #### C BCD1 #### [facility] [address] [place] [address] Abs. Vigo 0.81 thou/cmm Normal 0.30-0.82 [facility] Comment on above: Performed By: #### C BCD1 #### [facility] [address] [place] [address] Basophils/100 WBC (Bld) 0.1 % Normal [facility] Comment on above: Performed By: #### C BCD1 #### [facility] [address] [place] [address] Eosinophils (Bld) [#/Vol] 0.00 thou/cmm Low 0.04-0.54 [facility] Comment on above: Performed By: #### C BCD1 #### [facility] [address] [place] [address] Eosinophils/100 WBC (Bld) 0.0 % Normal [facility] Comment on above: Performed By: #### C BCD1 #### [facility] [address] [place] [address] Immature Grans 1.00 % Normal [facility] Comment on above: Performed By: #### C BCD1 #### [facility] [address] [place], [place] [address] Lymphocytes (Bld) [#/Vol] 1.29 thou/cmm Normal 0.84-2.85 [facility] Comment on above: Performed By: #### C BCD1 #### [facility] [address] [place], [place] [address] Lymphocytes/100 WBC (Bld) 9.6 % Normal [facility] Comment on above: Performed By: #### C BCD1 #### [facility] [address] [place], [place] [address] Monocytes/100 WBC (Bld) 6.0 % Normal [facility] Comment on above: Performed By: #### C BCD1 #### [facility] [address] [place], [place] [address] Seg Neutrophil 83.3 % Normal [facility] Comment on above: Performed By: #### C BCD1 #### [facility] [address] [place] [address] Erythrocyte distribution width (RBC) [Ratio] 14.3 % Normal 11.6-14.4 [facility] Comment on above: Performed By: #### C BCD1 #### [facility] [address] [place], [place] [address] Hematocrit (Bld) [Volume fraction] 38.4 % Low 40.1-51.0 [facility] Comment on above: Performed By: #### C BCD1 #### [facility] [address] [place], [place] [address] Hemoglobin (Bld) [Mass/Vol] 12.3 g/dL Low 13.7-17.5 [facility] Comment on above: Performed By: #### C BCD1 #### [facility] [address] [place], [place] [address] MCH (RBC) [Entitic mass] 27.3 pg Normal 25.7-32.2 [facility] Comment on above: Performed By: #### C BCD1 #### [facility] [address] [place], [place] [address] MCHC (RBC) [Mass/Vol] 32.0 % Low 32.3-36.5 [facility] Comment on above: Performed By: #### C BCD1 #### [facility] [address] [place] [address] MCV (RBC) [Entitic vol] 85.1 fL Normal 83.2-95.6 [facility] Comment on above: Performed By: #### C BCD1 #### [facility] [address] [place] [address] Platelet mean volume (Bld) [Entitic vol] 9.1 fL Normal 8.7-12.0 [facility] Comment on above: Performed By: #### C BCD1 #### [facility] [address] [place] [address] Platelets (Bld) [#/Vol] 216 thou/cmm Normal 141-365 [facility] Comment on above: Performed By: #### C BCD1 #### [facility] [address] [place] [address] RBC (Bld) [#/Vol] 4.51 mil/cmm Low 4.63-6.08 [facility] Comment on above: Performed By: #### C BCD1 #### [facility] [address] [place] [address] RDW SD 44.3 fl Normal 36.1-45.8 [facility] Comment on above: Performed By: #### C BCD1 #### [facility] [address] [place] [address] WBC (Bld) [#/Vol] 13.42 thou/cmm High 4.23-9.07 [facility] Comment on above: Performed By: #### C BCD1 #### [facility] [address] [place] [address] Lactic Acidon 12-25-2018 Lactate [Moles/Vol] 1.1 mmol/L Normal 0.4-2.0 [facility] Comment on above: Performed By: #### C BCD1 #### [facility] [address] [place] [address] MRSA Screenon 12-25-2018 MRSA DNA NABIL+probe Ql (Unsp spec) Test performed at [facility] No MRSA detected. Normal [facility] Comment on above: Performed By: #### A PTT #### [facility] [address] [place] [address] NURSING PROGon 12-25-2018 NURSING PROG HNO ID: [id number] Author: Cristo CharlesRn) SCOTTY Cornejo Service: Nursing Author Type: Registered Nurse Type: Nursing Progress Note Filed: 12/25/2018 6:30 PM Note Text: Assist with cough and deep breath. Hr at 130's. Dr. Mcdonald around aware of temp. Assist of 2 people to up in chair. Tolerated ambulation well. Normal [facility] NURSING PROG HNO ID: [id number] Author: Cristo Rain) SCOTTY Cornejo Service: Nursing Author Type: Registered Nurse Type: Nursing Progress Note Filed: 12/25/2018 11:00 AM Note Text: Nursing Progress: Topic: RESTRAINT NON-VIOLENT PATIENT NAME: Irene Nieto PATIENT LOCATION: [id number]/[place] [address] * The patient demonstrates Attempting to Remove Medical Devices Vital to Medical Stability as evidenced by the following behaviors remove manager medical which pose an imminent danger to self or others. The following interventions were attempted but were not effective in protecting the patient's safety: Family/Significant Other Involvement, Bed in Low/Locked Position, Call Light Within Reach Next, a comprehensive assessment was performed and warranted placing the patient in Soft Bilateral Wrists, the least restrictive restraint needed to protect the patient's safety. Ongoing safety assessments and evaluation for earliest removal of restraints will be performed. DATE: December 25, 2018 TIME: 11:00 AM Cristo Cornejo RN [facility] NURSING PROG HNO ID: [id number] Author: Sheila CharlesRnCecille Quintanilla RN Service: ? Author Type: Registered Nurse Type: Nursing Progress Note Filed: 12/25/2018 2:14 AM Note Text: Nursing Progress: Topic: RESTRAINT NON-VIOLENT PATIENT NAME: Irene Nieto PATIENT LOCATION: [id number]/[place] [address] * The patient demonstrates Attempting to Remove Medical Devices Vital to Medical Stability, Impulsive Behavior as evidenced by the following behaviors trying to pull at et tube, condom cath,unable to retain safety information which pose an imminent danger to self or others. The following interventions were attempted but were not effective in protecting the patient's safety: Alarms, Bed in Low/Locked Position, Call Light Within Reach Next, a comprehensive assessment was performed and warranted placing the patient in Soft Bilateral Wrists, the least restrictive restraint needed to protect the patient's safety. Ongoing safety assessments and evaluation for earliest removal of restraints will be performed. DATE: December 25, 2018 TIME: 2:14 AM Sheila Quintanilla RN [facility] OPERATIVE NOon 12-25-2018 OPERATIVE NO HNO ID: [id number] Author: Georgi Espinoza Service: ? Author Type: Physician Type: Operative Report Filed: 12/30/2018 4:23 PM Note Text: [facility] - Operative Report IRENE NIETO : 1965 AGE: 53. SEX: M PATIENT TYPE: I HOSP SVC: ORCO LOCATION: [facility] ATTENDING PHYSICIAN: BONNIE GUO CSN NUMBER: [id number] DATE OF SURGERY/PROCEDURE: 12/24/2018 INCISION/PROCEDURE START TIME: 10:13 PM INCISION CLOSE/PROCEDURE END TIME: 12:30 AM PREOPERATIVE DIAGNOSIS: 1. Acute vascular ischemia of left arm. 2. Post revascularization compartment syndrome, left arm and carpal tunnel. POSTOPERATIVE DIAGNOSIS: SAME SURGEON: Georgi Espinoza MD SCHEDULING CLERK: Dr. Mcginnis SURGERY/PROCEDURE: 1. Left carpal tunnel release. 2. Decompressive fasciotomy, left volar forearm. ANESTHESIA: General. CLINICAL NOTE: This 53-year-old gentleman had undergone a left distal biceps repair at an [facility] earlier today. In the recovery room, he was noted by his surgeon to have acute ischemia of his left hand and progressive swelling of his left elbow. It was felt that he had an acute vascular injury, requiring intervention. However, the [facility] did not have Vascular Surgery available and he was subsequently transferred emergently to our institution for evaluation. He was seen in the emergency room with the Vascular Service. He had acute ischemia of his left hand, which was cold, mottled, and pulseless. He had a contracture of his left hand diffusely. Pain on attempts at extension. He had diffuse swelling about his antecubital fossa region in the region of his surgical repair. He was subsequently taken to the operating room emergency by the Vascular team for emergent exploration. The vascular team did find an injury to the radial and ulnar arteries and performed their repair, which will be dictated separately. Following this, he had return of radial and ulnar pulses. The orthopedic team then proceeded with our prophylactic fasciotomies. DESCRIPTION OF PROCEDURE: The patient had his previous wound proximally opened, through which the vascular repair had occurred. He had diffuse swelling in the arm, but did not feel overly tight. However, given his significant degree and duration vascular changes, we proceeded with prophylactic fasciotomies. We began distally with an open carpal tunnel release. A standard incision was made and carried out through the palmar fat down to the transverse palmar ligament. This was incised initially with 15 blade and then the release was completed proximally and distally utilizing Metzenbaum scissors. We had good visualization of the median nerve and good decompression. We then performed a standard volar forearm approach. We paralleled flexor carpi radialis and carried this up toward the proximal incision. We attempted to leave a reasonable skin bridge as we were able to work underneath the skin bridge into the repair site. The interval between brachioradialis and flexor carpi radialis was identified and the fascia was opened. Brachioradialis was then retracted and we then entered the deep layer incising the flexor carpi radialis fascia and the fascia over the deep musculature. The muscles themselves appeared red and viable. There was not an excessive amount of bulging or swelling of the volar musculature.. They had good turgor. There was some contractility to bovieing. However, he still had a significant flexion contracture of his hand. The dorsal compartment was palpably soft. Thenar and hypothenar regions were palpated and found to be quite soft. He had good dopplerable pulses and capillary refill was adequate. At this point, the wounds were lavaged. We felt we had an adequate decompression. The carpal tunnel incision was closed with 4-0 nylon interrupted sutures. The proximal incision transversely in his proximal forearm region was closed over the vascular repair utilizing 4-0 nylon sutures. The fasciotomy incision was left open. However, we did use some vessel loops in a Carlos sandal type of approach to apply slight tension to keep the skin edges from retracting with the hope for future primary closure. At completion, the forearm remained very soft and compressibility. The wounds were lavaged one final time. Adaptic with bacitracin was then placed over the various wounds. We then placed 4 x 4s, ABD, and Kerlix in a very loose fashion and stabilized his arm with a posterior fiberglass splint. Access was left at the wrist level for Doppler pulse checks by the Vascular team. The patient was then transferred to the recovery room in satisfactory condition having tolerated the procedure well. He will be monitored in the CVICU for supportive care. Ancef was given intravenously preoperatively as antibiotic prophylaxis. Heparin per the vascular service. Georgi Espinoza MD GAV:[id number] Revised [facility] 12/30/18 /[id number] Normal [facility] OPERATIVE NO HNO ID: [id number] Author: Bonnie Guo Service: Vascular Surgery Author Type: Physician Type: Operative Report Filed: 12/25/2018 1:20 PM Note Text: [facility] - Operative Report EMILIA IRENE Fidel : 1965 AGE: 53. SEX: M PATIENT TYPE: I HOSP [facility]: [facility] LOCATION: [place] ATTENDING PHYSICIAN: BONNIE GUO CSN NUMBER: [id number] DATE OF SURGERY/PROCEDURE: 12/24/2018 INCISION/PROCEDURE START TIME: 10:13 PM INCISION CLOSE/PROCEDURE END TIME: 12:30 AM PREOPERATIVE DIAGNOSIS: Acute arm ischemia, status post biceps tendon repair. POSTOPERATIVE DIAGNOSIS: Acute arm ischemia, status post biceps tendon repair plus laceration to the bifurcation of the ulnar and brachial arteries with compartment syndrome. Dr. Espinoza had another part that is dictated separately. SURGEON: Bonnie Guo MD, FACS SCHEDULING CLERK: Physician City Attorney: Kusum Gambino M.D. ([place]) SURGERY/PROCEDURE: Exploration of left arm with evacuation of hematoma and reconstruction of radial and ulnar arteries. Thrombectomy of radial and ulnar arteries. Procedures performed by orthopedic service will be dictated separately. ANESTHESIA: General HISTORY: This is a 53-year-old gentleman who gave the history of suffering a biceps tendon repair a week or 2 ago while lifting some type of swimming pool out of a box. He had a biceps tendon repair at [facility] in the afternoon of 12/24. The [facility] transfer line contacted me to talk with the orthopedic surgeon at [facility], who felt that the patient had some bleeding, but also had ischemic arm. The patient was evidently in the recovery room at that point in [facility] and I asked the transfer line to help facilitate transfer to [facility]. Dr. Espinoza also became involved, was able to get the patient transferred to the emergency room fairly promptly. At that point, we evaluated the patient who was unable to straighten his fingers and had a tense arm with blistering skin on the left side and Doppler signals down to the antecubital region, but not distal to the incision made earlier today for his biceps tendon repair. He was brought emergently to the operating room where we did repair the injury as noted above and also Dr. Espinoza performed fasciotomies as will be dictated in his operative report. DESCRIPTION OF PROCEDURE: After the patient was brought to the OR, he was induced with general anesthesia and the left arm was sterilely prepped and draped with maximal barrier precaution. We also prepped the right thigh area should vein harvesting be needed. Antibiotics were given to the patient per anesthesia personnel and they also started in a radial art line on the right. We opened the transverse incision after draping and found some bleeding. Retractors were placed and we were able to do gain control and stop bleeding at that time, just with a little bit of compression. A large amount at least 8 ounces or so of clot was able to be expressed out of the wound as well. I did give 5000 units of heparin shortly after that to try and maintain patency. We initially did not have much back bleeding, but we could see probably a tear that ran 3 mm down the inside of the radial and the ulnar arteries at that point. After a little bit improved exposure, we got bulldogs on the vessels. The ulnar artery we decided to just divide entirely and use a flap of that ulnar to repair the distal end of the brachial and radial artery. This repair was done fairly simply with about 5 interrupted 7-0 Prolene sutures. We were at that point able to open up the flow down the radial artery and did get Doppler signals at the wrist level which we had not had previously. We did put the 2 thrombectomy catheter down the radial artery also before we did the repair and got not great backflow, but also got no thrombus whatsoever. #2 embolectomy catheter was passed to the wrist level. As we evaluated the end of the ulnar artery, we trimmed this up a little bit to freshen the end and it appeared that we would be able to do another anastomosis to the radial artery more distal to where the repair was that we adjust fashion. At that point, we did pass the embolectomy catheter down the ulnar artery as well got about 15 cm down that before it stopped, but no clot was retrieved from that. We had fairly weak backflow from the ulnar artery originally, although once the radial artery was opened, we did get some improved backflow. We then occluded the radial artery between dogs and created a longitudinal opening there before the anastomosis to the end of the ulnar artery. We used a running 7-0 Prolene on that anastomosis and initially it looked good, but we did not have great flow. Another transverse arteriotomy was made just distal to that anastomosis with the 11-blade and we were able to pass the right angle clamp across the radial ulnar artery anastomotic level without any problem. We then closed that transverse arteriotomy with couple of interrupted Prolene and at that junction, as we listened with the Doppler. We actually had good Doppler signals down the ulnar as well as the radial artery. There was still a lot of swelling in the forearm area. We had Doppler signals in the ulnar and radial artery, although at times were somewhat blood pressure dependent. We felt that we had adequate hemostasis in the transverse antecubital area wound that we had reopened. Dr. Espinoza entered the case and proceeded to perform appropriate fasciotomies at the hand and arm level. I stayed in the room at that point until dressings were applied. We had Doppler signals again, albeit not necessarily strong depending on the blood pressure at both the radial and ulnar regions. When the blood pressure was a little stronger, we actually had radial snuffbox Doppler signals as well. Orthopedic dressings were applied including the splint. We had gone to talk to the patient's family and on return to the operating room Anesthesia decided not to extubate the patient, who had a little bit of airway problem and intubation. He was then transferred to the CVICU for further monitoring. Bonnie Guo MD, FACS RGN:[id number] /[id number] cc: * Dr. Luis Enrique Napier Normal [facility] OPERATIVE NO HNO ID: [id number] Author: Georgi Espinoza Service: ? Author Type: Physician Type: Operative Report Filed: 12/25/2018 3:39 PM Note Text: [facility] - Operative Report IRENE NIETO : 1965 AGE: 53. SEX: M PATIENT TYPE: I HOSP SVC: ORCA LOCATION: [place] ATTENDING PHYSICIAN: BONNIE GUO CSN NUMBER: [id number] DATE OF SURGERY/PROCEDURE: 12/25/2018 INCISION/PROCEDURE START TIME: 10:13 PM INCISION CLOSE/PROCEDURE END TIME: 12:30 AM PREOPERATIVE DIAGNOSIS: 1. Acute vascular ischemia of left arm. 2. Post revascularization compartment syndrome, left arm and carpal tunnel. POSTOPERATIVE DIAGNOSIS: SAME SURGEON: Georgi Espinoza MD SCHEDULING CLERK: Dr. Mcginnis SURGERY/PROCEDURE: 1. Left carpal tunnel release. 2. Decompressive fasciotomy, left volar forearm. ANESTHESIA: General. CLINICAL NOTE: This 53-year-old gentleman had undergone a left distal biceps repair at an [facility] earlier today. In the recovery room, he was noted by his surgeon to have acute ischemia of his left hand and progressive swelling of his left elbow. It was felt that he had an acute vascular injury, requiring intervention. However, the [facility] did not have Vascular Surgery available and he was subsequently transferred emergently to our institution for evaluation. He was seen in the emergency room with the Vascular Service. He had acute ischemia of his left hand, which was cold, mottled, and pulseless. He had a contracture of his left hand diffusely. Pain on attempts at extension. He had diffuse swelling about his antecubital fossa region in the region of his surgical repair. He was subsequently taken to the operating room emergency by the Vascular team for emergent exploration. The vascular team did find an injury to the radial and ulnar arteries and performed their repair, which will be dictated separately. Following this, he had return of radial and ulnar pulses. The orthopedic team then proceeded with our prophylactic fasciotomies. DESCRIPTION OF PROCEDURE: The patient had his previous wound proximally opened, through which the vascular repair had occurred. He had diffuse swelling in the arm, but did not feel overly tight. However, given his significant degree and duration vascular changes, we proceeded with prophylactic fasciotomies. We began distally with an open carpal tunnel release. A standard incision was made and carried out through the palmar fat down to the transverse palmar ligament. This was incised initially with 15 blade and then the release was completed proximally and distally utilizing Metzenbaum scissors. We had good visualization of the median nerve and good decompression. We then performed a standard volar forearm approach. We paralleled flexor carpi radialis and carried this up toward the proximal incision. We attempted to leave a reasonable skin bridge as we were able to work underneath the skin bridge into the repair site. The interval between brachioradialis and flexor carpi radialis was identified and the fascia was opened. Brachioradialis was then retracted and we then entered the deep layer incising the flexor carpi radialis fascia and the fascia over the deep musculature. The muscles themselves appeared red and viable. There was not an excessive amount of bulging or swelling of the volar musculature.. They had good turgor. There was some contractility to bovieing. However, he still had a significant flexion contracture of his hand. The dorsal compartment was palpably soft. Thenar and hypothenar regions were palpated and found to be quite soft. He had good dopplerable pulses and capillary refill was adequate. At this point, the wounds were lavaged. We felt we had an adequate decompression. The carpal tunnel incision was closed with 4-0 nylon interrupted sutures. The proximal incision transversely in his proximal forearm region was closed over the vascular repair utilizing 4-0 nylon sutures. The fasciotomy incision was left open. However, we did use some vessel loops in a Carlos sandal type of approach to apply slight tension to keep the skin edges from retracting with the hope for future primary closure. At completion, the forearm remained very soft and compressibility. The wounds were lavaged one final time. Adaptic with bacitracin was then placed over the various wounds. We then placed 4 x 4s, ABD, and Kerlix in a very loose fashion and stabilized his arm with a posterior fiberglass splint. Access was left at the wrist level for Doppler pulse checks by the Vascular team. The patient was then transferred to the recovery room in satisfactory condition having tolerated the procedure well. He will be monitored in the CVICU for supportive care. Ancef was given intravenously preoperatively as antibiotic prophylaxis. Heparin per the vascular service. Georgi Espinoza MD GAV:[id number] /[id number] Normal [facility] PLAN OF CAREon 12-25-2018 PLAN OF CARE HNO ID: [id number] Author: Scotty Grayson (Medical Imaging Director) Service: Pharmacy Author Type: Pharmacist Type: Plan of Care Filed: 12/25/2018 2:18 PM Note Text: MEDICATION HISTORY AND MEDICATION RECONCILIATION Patient Name:Maggie Nieto : 1965 Source of history:Patient: Reliability of source: Appears reliable, clearly identified: Medication name, Medication dose, Medication route and Medication frequency Medication Nonadherence Identified: No barriers noted The above information represents the best possible medication history: Yes Reconciliation completed? Yes All [employer] medications addressed by LIP Additional comments: 11/29/2018 1 11/28/2018 Armodafinil 150 MG Tablet 30 30 Pa Tri [id number] Dale ([id number]) 0 Private Pay HI Patient Compliance: Good [id number]-wm-Myrbpuxtk Medication List Adjustments: Medication Regimen Changes Medication Change Reason na na na Medications Added Medication Regimen Source/Comments Omeprazole 20mg Once daily Per patient Nuvigil 150mg Take 0.5 tabs for work (shift work disorder) Per patient and oarrs Medications Removed Medication Reason OTC supplements: Vit C, cayene capsicum, cinnamon bark, Flonase, ramírez read, melatonin, multivitamin, vitamin B complex, zinc Discontinued by patient simvastatin Discontinued by patient Short-Term Medications: Medication Regimen Indication Duration/Stop Date na na na Further Clarification Required: Medication Issue na na Patient is a 30 day readmission: No Patient Interested in Bedside Delivery: No Time Spent Reviewing Patient's Medications: 15 minutes Medication History Status (Justify NOT COMPLETED status): COMPLETED Allergies: ALLERGIES Allergen Reactions - Sudafed [Pseudoephe* Other: See Comments Severe htn, elevated HR Preferred Pharmacy: [facility] [address] [place] [id number] [facility] [phone] Current [employer] Medications: Prior to Admission medications as of 12/25/18 1415 Medication Sig Last Dose Taking omeprazole (PRILOSEC) 20 mg capsule Take 20 mg by mouth once daily. Yes armodafinil (NUVIGIL) 150 mg tab Take 75 mg by mouth once daily. For shift work disorder Yes SCOTTY GRAYSON, MUSIC PUBLISHER December 25, 2018 2:15 PM Normal [facility] PROGRESSon 12-25-2018 PROGRESS HNO ID: [id number] Author: Bonnie Guo Service: Vascular Surgery Author Type: Physician Type: Progress Notes Filed: 12/30/2018 6:03 PM Note Text: Vascular Progress Note SERVICE DATE: 12/25/2018 Vascular AND Thoracic Surgery Service Pager: For questions or concerns Mon-Fri 6a-5p please page [phone]. After 5pm and on Weekends and Holidays, please page [phone] if in ICU or [phone] if on RNF. Subjective SUBJECTIVE: Pt intubated this morning. No issues overnight. Denies N/V/CP/SOB Diet: DIET LIQUID Objective OBJECTIVE: Vitals: BP 156/77 Pulse 115 Temp (Src) 100.6 (Skin) Resp 20 Ht 5' 8 (1.73m) Wt 233 lb 14.5 oz (106.1kg) SpO2 100% BMI 35.57 kg/(m2). O2 Therapy: Room Air, Liters: 2, %FIO2: 30 Temp (24hrs), Av.7 ?C (99.9 ?F), Min:36.6 ?C (97.9 ?F), Max:38.1 ?C (100.6 ?F) O2 Therapy: Room Air IANDO: Date 12/24/18 1500 - 12/25/1865812/25/18 0700 - 12/26/18 0659 Shift 8363-1116 0212-1826 24 Hour Total 0428-7179 2963-0256 6715-5249 24 Hour Total INTAKE IV 1750 1750 714.6 714.6 NS 0.9% 600 600 570 570 Heparin IV 70 70 58 58 LR 1000 1000 Propofol IV 80 80 86.6 86.6 Shift Total 1750 1750 714.6 714.6 OUTPUT Urine 0 0 158 572 3906 Output ( External Collection Device 12/25/18 0100 Assessment) 0 0 065 373 3519 Tubes 0 0 30 30 Output ([REMOVED] GI Feed 12/25/18 0210 Assessment Gastric Mouth 12/25/18 1050) 0 0 30 30 Shift Total 0 0 424 131 1695 Weight (kg) 99.8 106.1 106.1 106.1 106.1 106.1 106.1 MEDICATIONS Current Facility-Administered Medications Medication Dose Route Frequency - potassium chloride 80-120 mEq oral liquid 80-120 mEq ORAL/FEEDING TUBE PRN - potassium chloride iv piggyback 20 mEq/100 mL 20 mEq INTRAVENOUS PRN - magnesium sulfate in water 2 g in sterile water 50 ml 2 g INTRAVENOUS PRN - sodium phosphate 45 mmol in NaCl 0.9% 250 mL 45 mmol INTRAVENOUS PRN - calcium gluconate 4 g in NaCl 0.9% 250 mL 4 g INTRAVENOUS PRN - ondansetron 4 mg tab(s) (ZOFRAN) 4 mg ORAL q 6 H PRN Or - ondansetron (PF) 4 mg injection (ZOFRAN) 4 mg INTRAVENOUS q 6 H PRN - heparin iv infusion (STANDARD NOMOGRAM) 25,000 units in NaCl 0.45% 250 mL PREMIX 0-3,000 Units/hr INTRAVENOUS CONTINUOUS And - heparin RATE CHANGE bolus 1,000-10,000 Units for subtherapeutic aptt results 1,000-10,000 Units INTRAVENOUS PRN - NaCl 0.9% iv infusion 150 mL/hr INTRAVENOUS CONTINUOUS - Chlorhexidine Gluconate 0.12 % 15 mL (PERIDEX) 15 mL ORAL q 12 H - fentaNYL 50 mcg/mL 25-50 mcg injection (SUBLIMAZE) 25-50 mcg INTRAVENOUS q 2 H PRN - hydrALAZINE 10 mg injection (APRESOLINE) 10 mg INTRAVENOUS q 4 H PRN - HYDROmorphone 1 mg injection (DILAUDID) 1 mg INTRAVENOUS q 2 H PRN - famotidine 20 mg tab(s) (PEPCID) 20 mg ORAL BID - metoprolol 5 mg injection (LOPRESSOR) 5 mg INTRAVENOUS q 6 H PRN - oxyCODONE-acetaminophen 5-325 mg 1-2 tablet (PERCOCET) 1-2 tablet ORAL q 4 H PRN - gabapentin 200 mg cap(s) (NEURONTIN) 200 mg ORAL q 12 H Labs: Recent Labs 12/25/18 0640 12/25/18 0100 NA 138 138 K 4.1 4.4 CHLOR 106 106 CO2 26 22 BUN 10 12 CREAT 0.81 0.78 GLUC 118* 141* ANION 10 14 CA 7.9* 7.9* WBC 8.87 13.42* HB 11.1* 12.3* HCT 34.8* 38.4* PLT 162 216 LACT 1.1 -- INR -- 1.01 PH 7.360 -- PCO2 47.1* -- PO2 132.0* -- BE 0.7 -- Recent Labs 12/25/18 0640 PH 7.360 PCO2 47.1* PO2 132.0* BE 0.7 Exam: GENERAL: Intubated and sedated SKIN: Skin color, texture, turgor normal. No rashes or lesions. LUNGS: Unlabored breathing on O2 Therapy: Room Air on Liters: 2 sating at SpO2: 100 % CARDIAC: rate and rhythm as above, ABDOMEN: Benign, Soft, non-tender, No masses, hepatosplenomegaly and No lymphadenopathy EXTREMITIES: Deferred WOUND: clean, dry and intact, dressing currently covering incisions Doppler radial signal present. ASSESSMENT AND PLAN: Assessment/Plan This is a 53 year old male s/p Exploration of LUE, repair of L radial artery, re-implation of L ulnar artery, LUE fasciotomy and carpal tunnel release -Plan extubation today -once extubated will start diet -trend CPK until it begins decreasing -PO pain meds once extubated -prn lopressor for BP control Assessment and plan discussed with attending: Dr. Sari Gutiérrez saw and evaluated the patient. Discussed with the resident and agree with resident's findings and plan as documented in the resident's note. SIGNATURE: Todd Lugo MD PATIENT NAME: Irene Nieto DATE: December 25, 2018 TIME: 6:21 PM Pager: [phone] Normal [facility] PROGRESS HNO ID: [id number] Author: Livan Funez Service: Critical Care Author Type: Physician Type: Progress Notes Filed: 12/25/2018 3:41 PM Note Text: MICU - PROGRESS NOTE SERVICE DATE: December 25, 2018 Admission Date: 12/24/2018 AGE: [age] year old LOS: 0 days Subjective Intubated, sedated. No acute events overnight. Follows requests, minimal secretions. Cuff leak present. Vent changed to PSV 10/5 with good Vt (>450 ml) and RR < 20. Extubated in the presence of anesthesia. Objective PROBLEMS: ACTIVE PROBLEM LIST Other and Unspecified Hyperlipidemia Essential hypertension, benign Degeneration of Intervertebral Disc, Site Unspecified Lumbago Tendonitis of Ankle Dilcia (Obstructive Sleep Apnea) Rhinitis Obesity, Class I, Bmi 30-34.9 Injury of Radial Artery At Forearm Level, Left, Initial Encounter Limb Ischemia PAST MEDICAL HISTORY Diagnosis Date - Essential hypertension, benign - Injury of brachial artery, initial encounter 12/24/2018 - Lumbago - Obstructive sleep apnea PAST SURGICAL HISTORY Procedure Laterality Date - PAST SURGICAL HISTORY OF left knee Social History Socioeconomic History Marital status: Spouse name: Not on file Number of children: Not on file Years of education: Not on file Highest education level: Not on file Social Needs Financial resource strain: Not on file Food insecurity - worry: Not on file Food insecurity - inability: Not on file Transportation needs - medical: Not on file Transportation needs - non-medical: Not on file Occupational History Not on file Tobacco Use Smoking status: Never Smoker Smokeless tobacco: Never Used Substance and Sexual Activity Alcohol use: No Drug use: No Sexual activity: Not on file Other Topics Concerns: Not on file Social History Narrative Not on file VITAL SIGNS (last 24hrs min/max): Temp Av.6 ?C (99.7 ?F) Min: 36.6 ?C (97.9 ?F) Max: 38.1 ?C (100.6 ?F) Pulse Av.3 Min: 95 Max: 146 Arterial BP 1 Min: 132/101 Max: 198/96 Cuff BP Min: 124/65 Max: 197/112 Pain Level: 5 Vital signs reviewed. BP 156/77 Pulse 115 Temp (Src) 100.4 (Skin) Resp 20 Ht 5' 8 (1.73m) Wt 233 lb 14.5 oz (106.1kg) SpO2 98% BMI 35.57 kg/(m2). O2 Therapy: Room Air, Liters: 2, %FIO2: 30 Temp (24hrs), Av.6 ?C (99.7 ?F), Min:36.6 ?C (97.9 ?F), Max:38.1 ?C (100.6 ?F) NET FLUID BALANCE Intake/Output Summary (Last 24 hours) at 12/25/2018 1534 Last data filed at 12/25/2018 1153 Gross per 24 hour Intake 2464.6 ml Output 980 ml Net 1484.6 ml MEDICATIONS Current Facility-Administered Medications Medication Dose Route Frequency - potassium chloride 80-120 mEq oral liquid 80-120 mEq ORAL/FEEDING TUBE PRN - potassium chloride iv piggyback 20 mEq/100 mL 20 mEq INTRAVENOUS PRN - magnesium sulfate in water 2 g in sterile water 50 ml 2 g INTRAVENOUS PRN - sodium phosphate 45 mmol in NaCl 0.9% 250 mL 45 mmol INTRAVENOUS PRN - calcium gluconate 4 g in NaCl 0.9% 250 mL 4 g INTRAVENOUS PRN - ondansetron 4 mg tab(s) (ZOFRAN) 4 mg ORAL q 6 H PRN Or - ondansetron (PF) 4 mg injection (ZOFRAN) 4 mg INTRAVENOUS q 6 H PRN - heparin iv infusion (STANDARD NOMOGRAM) 25,000 units in NaCl 0.45% 250 mL PREMIX 0-3,000 Units/hr INTRAVENOUS CONTINUOUS And - heparin RATE CHANGE bolus 1,000-10,000 Units for subtherapeutic aptt results 1,000-10,000 Units INTRAVENOUS PRN - NaCl 0.9% iv infusion 150 mL/hr INTRAVENOUS CONTINUOUS - Chlorhexidine Gluconate 0.12 % 15 mL (PERIDEX) 15 mL ORAL q 12 H - propofol infusion (DIPRIVAN) 5-60 mcg/kg/min INTRAVENOUS CONTINUOUS - ceFAZolin iv piggyback 2 g in D5W (iso-osmotic) 100 mL (ANCEF) 2 g INTRAVENOUS q 8 HR - fentaNYL 50 mcg/mL 25-50 mcg injection (SUBLIMAZE) 25-50 mcg INTRAVENOUS q 2 H PRN - hydrALAZINE 10 mg injection (APRESOLINE) 10 mg INTRAVENOUS q 4 H PRN - HYDROmorphone 1 mg injection (DILAUDID) 1 mg INTRAVENOUS q 2 H PRN - metoprolol 5 mg injection (LOPRESSOR) 5 mg INTRAVENOUS q 6 H PRN Lines, Drains, and Airways Line Peripheral Right Hand 20 Gauge -- days Arterial Line 12/24/182214 Arterial Line Right Radial less than 1 day Peripheral 12/24/182149 Right Arm 16 Gauge less than 1 day Drain External Collection Device 12/25/18 0100 Assessment less than 1 day PHYSICAL EXAM PERFORMED: General: no acute distress Cardiovascular: Regular rhythm Respiratory: Clear to auscultation Abdomen: Soft Extremities: Edema- No and left arm in dressing/bandage Neurologic: Moving all extremities Respiratory/Nursing Documentation: O2 Therapy: Room Air (12/25/18 1400) Invasive Ventilator Mode: Pressure Regulated Volume Control (12/25/18 08) Set Ventilator Respiratory Rate (BPM): 12 (12/25/18 0809) Total Respiratory Rate (BPM): 12 (12/25/18 08) Tidal Volume Set (mL): 520 (12/25/18 08) Exhaled Tidal Volume (mL): 519 (12/25/18 08) Minute Volume (L): 6.5 (12/25/18 08) Peak Inspiratory Pressure (cm H2O): 22 (12/25/18 08) PEEP/CPAP (cm H2O): 5 (12/25/18808) HEMODYNAMIC DATA: Reviewed DATA: Diagnostic tests reviewed for today's visit, films/specimens were personally reviewed by me: Most recent labs and imaging results. LABS: Recent Labs 12/25/18 1320 12/25/18 0640 12/25/18 0100 CK 14,590* 7,634* 2,381* WBC -- 8.87 13.42* RBC -- 4.14* 4.51* HB -- 11.1* 12.3* HCT -- 34.8* 38.4* MCV -- 84.1 85.1 PLT -- 162 216 GLUC -- 118* 141* BUN -- 10 12 CREAT -- 0.81 0.78 NA -- 138 138 K -- 4.1 4.4 CHLOR -- 106 106 CO2 -- 26 22 CA -- 7.9* 7.9* PTSEC -- -- 10.5 APTT -- 91.2* 32.9* INR -- -- 1.01 ABG: Recent Labs 12/25/18 0640 PH 7.360 PO2 132.0* PCO2 47.1* CXR Cardiomegaly. ?Atelectasis at the lung bases. ?Lines and tubes as noted. Assessment/Plan IMPRESSION: Anticipated post op resp insufficiency Difficult airway during the procedure S/p Repair of L?Radial?Artery hypertension DILCIA Obesity PLAN: ? Extubated without difficuty ? Wean oxgyen to room air ? IS ? Increase activity as tolerated ? Heparin gtt per primary service ? BP control ? Hydralazine prn ? ICU monitoring ? Supportive care ? Pulm/CC s/o. Please call with questions/concerns. SIGNATURE: Livan Funez MD PATIENT NAME: Irene Nieto DATE: December 25, 2018 TIME: 3:34 PM [facility] PROGRESS HNO ID: [id number] Author: Georgi Espinoza Service: ? Author Type: Physician Type: Progress Notes Filed: 12/25/2018 1:49 PM Note Text: Patient extubated, awake and alert. Hand pink with palpable radial pulse. Complains of pain, burning and pressure sensation. No active ROM. No increased symptoms with passive finger extension. No sensation to light touch diffusely. Continue to monitor. Plan repeat I and D and attempted delayed wound closure in next 2 days. Watson Espinoza MD [facility] PROGRESS HNO ID: [id number] Author: Mary CharlesRn) SCOTTY Adair Service: Wound/Ostomy Author Type: Registered Nurse Type: Progress Notes Filed: 12/25/2018 9:54 AM Note Text: Wound care to sign off at this time. Patient POD #1, left arm with dressing and splint intact. Ortho and Vascular on at this time. Spoke with bedside RN Celio, instructed to re-consult wound care if needed for any new concerns. [facility] PROGRESS HNO ID: [id number] Author: Georgi Espinoza Service: Orthopaedic Surgery Author Type: Physician Type: Progress Notes Filed: 12/25/2018 8:09 AM Note Text: I evaluated the patient and personally participated in the sims components. I agree with the resident's findings and plan with the following revisions and/or additions: Remains intubated and sedated. Hand warm, pink. Less finger contracture. Able to passively extend without increase in heart rate etc. Dressing dry. Continue supportive care. Signature: Georgi Espinoza MD Service Date: 12/25/2018 Service Time: 8:08 AM. ORTHOPAEDIC SURGERY DAILY PROGRESS NOTE Patient Name: Irene Nieto Date of Evaluation: 12/25/2018 Admission Date: 12/24/2018 Time of Evaluation: 6:45 AM ASSESSMENT: 53yo M POD#1 s/p L radial and ulnar artery repairs, L forearm volar fasciotomy, L CTR PLAN: - PT/OT: Non Weight Bearing left upper - DVT Prophylaxis: Heparing gtt - Appreciate ICU recommendations - Vascular following - Braun: Maintain for surgical immobilization and I/Os - Post-op Abx: Post-op Ancef in progress - Dressing: Dry dressing, Long posterior splint - Plan for repeat IANDD within the next 2-3 days. Will determine timing with staff surgeon INTERVAL HPI: Patient monitored, no new events overnight. OBJECTIVE: BP (!) 197/112 Pulse 99 Temp 37.4 ?C (99.3 ?F) Resp 14 Ht 172.7 cm (5' 8) Wt 106.1 kg (233 lb 14.5 oz) SpO2 99% BMI 35.57 kg/m? Intake/Output Summary (Last 24 hours) 12/24 2300 - 12/25 0659 In: 1750 [IV:1750] Out: 0 Exam: General: Intubated and sedated Extremities: Left Upper Extremity: Dressing clean, dry and intact. Motor and sensation not tested due to sedation Radial pulse palpable. Dopplerable radial and ulnar pulses Compartments soft, compressible. Passive ROM of finger present Labs: BMP: Sodium 138 12/25/2018 Potassium 4.4 12/25/2018 Chloride 106 12/25/2018 CO2 22 12/25/2018 BUN 12 12/25/2018 Creatinine 0.78 12/25/2018 Glucose 141 12/25/2018 CBC: WBC 13.42 12/25/2018 HGB 12.3 12/25/2018 Hematocrit 38.4 12/25/2018 Platelet Count 216 12/25/2018 Jyoti Mcginnis MD Orthopaedic Surgery, PGY-4 Please page [phone] from 5p-6a and on weekends for any issues. Cell #: [phone] Pager #: [phone] 12/25/2018 6:45 AM Normal [facility] Protimeon 12-25-2018 INR Coag (PPP) [Relative time] 1.01 {INR} Normal 0.90-1.30 [facility] Comment on above: Result Comment: Nancy min K Antagonist (VKA) Therapeutic Range: INR 2 to 3 (Target INR of 2.5) Note: For patients treated with VKA drugs, such as warfarin, the [employer] 2012 Guideline recommends a therapeutic INR range of 2 to 3 (target INR of 2.5). This recommendation includes high-risk patients with antiphospholipid syndrome with previous arterial or venous thromboembolism, current-generation mechanical or bioprosthetic aortic heart valve replacement. VKA Therapeutic Range for some Mechanical Valve Replacement: INR 2.5 to 3.5 (Target INR of 3) Note: Patients with mechanical aortic valve replacement and additional risk factors for thromboembolic events (atrial fibrillation, previous thromboembolism, LV dysfunction, hypercoagulable conditions) or an older generation mechanical AVR (i.e., ball in-Cage) or any mechanical MVR should have a INR therapeutic range of 2.5 to 3.5 target INR of 3). Guyatt GH, et al. Chest 2012; 141:7S-47S Jason RA, et al. [facility] 2017; 70: 252-289 Performed By: #### P T #### [place] [id number] PT Coag (PPP) [Time] 10.5 s Normal 9.7-13.0 [facility] Comment on above: Performed By: #### P T #### [place] [id number] Type and Screenon 12-25-2018 ABO group Nom (Bld) O Normal [facility] Comment on above: Performed By: #### T &S #### [place] [id number] Comment See Below [facility] Comment on above: Result Comment: Scre en &/or Xmatch expires in 3 days at 12 midnight. Redraw patient at that time. Performed By: #### T &S #### [place] [address] RH Type Positive Normal [facility] Comment on above: Performed By: #### T &S #### [place] [id number] ED NOTEon 12-24-2018 ED NOTE HNO ID: [id number] Author: Page CharlesRn) SCOTTY Heath Service: Nursing Author Type: Registered Nurse Type: ED Notes Filed: 12/24/2018 9:15 PM Note Text: Pt up to OR with ortho resident and surgeon Normal [facility] ED NOTE HNO ID: [id number] Author: Page CharlesRn) SCOTTY Heath Service: Nursing Author Type: Registered Nurse Type: ED Notes Filed: 12/24/2018 9:02 PM Note Text: Ortho residents at bedside Normal [facility] ED NOTE HNO ID: [id number] Author: Janny CharlesRn) SCOTTY Melton Service: ? Author Type: Registered Nurse Type: ED Notes Filed: 12/24/2018 8:56 PM Note Text: Bed: 08-ED Expected date: 12/24/18 Expected time: 7:35 PM Means of arrival: Comments: [place] transfer [facility] ED PROV NOTEon 12-24-2018 ED PROV NOTE HNO ID: [id number] Author: Vickie Rodriguez MD Service: Emergency Medicine Author Type: Physician Type: ED Provider Notes Filed: 01/06/2019 4:30 PM Note Text: ED Provider Note Patient Name: Irene Nieto SERVICE DATE: 12/24/18 History Patient presents with: Consult: Pt comes from [facility] with recent surgery to repair L Bicep torn tendon. Pt had increased pain after surgery and swelling in L Lower arm, -pulses + numbness + pain. pt cannot move fingers at this time. Pt AANDO x3 Pt is a 53-year-old male with past medical history of hypertension presenting as a transfer from [facility] with concern for limb ischemia. Patient was having repair of a left distal biceps tendon rupture today and per the report following surgery patient was having increasing pain in that left arm where he was having the surgery with increasing swelling at that time the staff were unable to obtain a left radial pulse and so patient sent here for evaluation. Patient is complaining of severe pain to the left upper extremity. States that he has a loss of sensation in the distal arteries left upper extremity and states that he is unable to move his left elbow and entirety of his left hand. PAST MEDICAL HISTORY Diagnosis Date - Essential hypertension, benign - Lumbago - Obstructive sleep apnea PAST SURGICAL HISTORY Procedure Laterality Date - PAST SURGICAL HISTORY OF left knee No family history on file. Social History Tobacco Use - Smoking status: Never Smoker - Smokeless tobacco: Never Used Substance and Sexual Activity - Alcohol use: No - Drug use: No - Sexual activity: Not on file ALLERGIES Allergen Reactions - Sudafed [Pseudoephe* Other: See Comments Severe htn, elevated HR Review of Systems Constitutional: Negative for chills and fever. HENT: Negative for congestion and nosebleeds. Respiratory: Negative for shortness of breath and wheezing. Cardiovascular: Negative for chest pain and palpitations. Gastrointestinal: Negative for abdominal pain, constipation, diarrhea, nausea and vomiting. Genitourinary: Negative for dysuria and hematuria. Musculoskeletal: Negative for neck pain and neck stiffness. Skin: Negative for color change and rash. Neurological: Negative for dizziness and syncope. Psychiatric/Behavioral: Negative for agitation and confusion. Physical Exam BP 197/112 Pulse 104 Temp 98.6 Resp 16 Ht 5' 8 (1.73m) Wt 220 lb (99.8kg) SpO2 95% BMI 33.46 kg/(m2). O2 Therapy: Room Air Physical Exam Constitutional: He is oriented to person, place, and time. He appears well-developed and well-nourished. HENT: Head: Normocephalic and atraumatic. Eyes: Conjunctivae and EOM are normal. Neck: Normal range of motion. Neck supple. Cardiovascular: Normal rate, regular rhythm and normal heart sounds. Exam reveals no gallop and no friction rub. No murmur heard. No radial pulse palpated in the left upper extremity Pulmonary/Chest: Effort normal and breath sounds normal. Abdominal: Soft. Bowel sounds are normal. There is no tenderness. There is no rebound and no guarding. Musculoskeletal: He exhibits no deformity. Diffuse edema to the left upper extremity with dusky digits of the left upper extremity with sluggish cap refill to the affected digits. Loss of sensation to the distal left upper extremity with loss of range of motion of left hand and left elbow. Neurological: He is alert and oriented to person, place, and time. Skin: Skin is warm and dry. Capillary refill takes less than 2 seconds. Psychiatric: He has a normal mood and affect. His behavior is normal. Diagnostic Testing ED Labs Ordered and Reviewed - No data to display Procedures ED Course / Clinical Impression Clinical Impressions as of Dec 29 1125 Pain of left upper extremity Left arm swelling Decreased radial pulse MDM / Disposition / Plan 53-year-old male presenting to the emergency department with concern for left upper extremity ischemia. History of physical performed as described above. On arrival patient without a left radial pulse, extremity is cool to touch with prolonged Refill. Orthopedic team and vascular team were consulted who has seen the patient and will be taking the patient to the operating room. Vital stable throughout this time. Patient transferred to operating room in stable condition. SIGNATURE: DO Kuldip Verde (Res) Forrest, Resident 12/25/18 0054 Kuldip (Res) Forrest, Resident 12/25/18 0102 Critical Care I spent a total of 35 minutes of critical care time in the evaluation and management of this patient. This was necessary to treat or prevent deterioration of the following condition(s): neurovascular compromise due to post surgical complication, which the patient had and/or has a high probability of suddenly developing. The patient received emergency surgery and IV Fluids during the time that critical care was provided.I discussed the plan of care with the Resident and agree with the findings documented. Critical care time excludes separately billed procedures. Attending Note I evaluated the patient and personally participated in the sims components. I agree with the resident's findings and plan as documented and have discussed the case and management of the patient's care with the resident. Signature: Vickie Rodriguez MD Date: 01/06/2019 Time: 4:30 PM Vickie Rodriguez MD 01/06/19 1630 Normal [facility] HISTORY PHYSICALon HISTORY PHYSICAL HNO ID: [id number] Author: Georgi Espinoza Service: Orthopaedic Surgery Author Type: Physician Type: HANDP Filed: 12/24/2018 10:30 PM Note Text: I evaluated the patient and personally participated in the sims components. I agree with the resident's findings and plan as documented and have discussed the case and management of the patient's care with the resident. Discussed with Dr Guo at bedside. Signature: Georgi Espinoza MD Service Date: 12/24/2018 Service Time: 10:29 PM ORTHOPAEDIC ADMITTING HISTORY AND PHYSICAL EXAM Patient Name: Irene Nieto Admission Date: 12/24/2018 Date of Evaluation: 12/24/2018 Time of Evaluation: 9:24 PM HISTORY OF PRESENT ILLNESS: This is a 53 YO M presenting as a transfer from outside hospital for concerns for a vascular injury to his LUE after a singe-incision distal biceps repair earlier today. In [facility] ED, patient complains of pain and numbness over his entire left hand and well as inability to move his digits. Patient states that he ruptured his left distal biceps one week ago while lifting a heavy box. Patient was emergently taken to OR from the ED. PAST MEDICAL HISTORY Diagnosis Date - Essential hypertension, benign - Lumbago - Obstructive sleep apnea PAST SURGICAL HISTORY Procedure Laterality Date - PAST SURGICAL HISTORY OF left knee No current facility-administered medications for this encounter. Allergies: ALLERGIES Allergen Reactions - Sudafed [Pseudoephe* Other: See Comments Severe htn, elevated HR No family history on file. Social History Tobacco Use - Smoking status: Never Smoker - Smokeless tobacco: Never Used Substance Use Topics - Alcohol use: No - Drug use: No REVIEW OF SYSTEMS: ROS not obtained due to emergent situation RADIOGRAPHS: No new images OTHER STUDIES: Not applicable. LABS: N/A PHYSICAL EXAM: BP 197/112 Pulse 104 Temp 98.6 Resp 16 Ht 5' 8 (1.73m) Wt 220 lb (99.8kg) SpO2 95% BMI 33.46 kg/(m2). O2 Therapy: Room Air General: NAD, drowsy LUE: hand is cool to touch Incisional wound over volar/proximal forearm. No evidence of active bleeding No expanding hematoma Forearm is edematous but it remains compressible Denies sensation to light touch over m/r/u Minimal digit movement when prompted No doppler signal over radial and ulnar pulse +doppler signal over antecubital fossa PROCEDURE: Not applicable IMPRESSION: 53 YO M POD0 s/p left distal biceps repair with clinical evidence of an associated vascular injury PLAN: -Taken to OR emergently with vascular surgery for exploration of LUE wound, possible vascular repair, possible fasciotomy -Vascular surgery on consult -Discussed with Dr. Espinoza who agrees with above plan Bret Paniagua MD 12/24/18 Normal [facility] HISTORY PHYSICAL HNO ID: [id number] Author: Bonnie Guo Service: Vascular Surgery Author Type: Physician Type: HANDP Filed: 10/05/2019 1:47 PM Note Text: VASCULAR SURGERY HISTORY AND PHYSICAL EXAMINATION SERVICE DATE: 12/24/2018 SERVICE TIME: 9:10 PM PRIMARY CARE PHYSICIAN: Luis Enrique Napier MD Subjective CHIEF COMPLAINT: Brachial artery injury HPI: This is a 53 year old male who presents as a transfer from [place]. He was assembling a swimming pool last week and felt an immediate pop and deformity of th eleft elbow. He was seen in the ED and MRI confirmed a distal biceps tear. He presented to the office of Dr Faith De Paz for elective repair today. He underwent a left biceps repair with arthrex tendon button and screw. The operative report states quickly 1 of the vessels on his anterior distal dorsal arthritis volar to the biceps tendon however is secondary the fact that it was not rettracted we lef the remaining vessels intact and Patient tolerated the procedure well no comp occasions transferred to recovery room in stable condition. Transferred to [facility] after concern for brachial artery injury. Admits to paresthesias of the L arm on the dorsal and volar aspects down to the fingers. Admits to the inability to flex, extend elbow, wrist, fingers. Denies fevers, chills, CP, SOB, cough, nausea, vomiting, constipation, diarrhea, urinary problems, or other complaints. He takes an antacid daily, no other medications. PAST MEDICAL HISTORY Diagnosis Date - Essential hypertension, benign - Lumbago - Obstructive sleep apnea PAST SURGICAL HISTORY Procedure Laterality Date - PAST SURGICAL HISTORY OF left knee No family history on file. Social History Tobacco Use - Smoking status: Never Smoker - Smokeless tobacco: Never Used Substance Use Topics - Alcohol use: No - Drug use: No (Not in a hospital admission) ALLERGIES Allergen Reactions - Sudafed [Pseudoephe* Other: See Comments Severe htn, elevated HR COMPLETE REVIEW OF SYSTEMS: 10 point review of systems was performed and negative unless otherwise noted in the HPI. Objective PHYSICAL EXAM: Physical Exam Performed: GENERAL: Obese, Mild Distress HEAD/SINUSES: No significant findings OROPHARYNX: Lips, mucosa, and tongue normal. Teeth and gums normal. Oropharynx normal. NECK: No jugulovenous distention, Supple LUNGS: Lungs clear to auscultation, Good diaphragmatic excursion CARDIAC: Normal S1 and S2; no rubs, murmurs, or gallops ABDOMEN: Abdomen soft, non-tender, BS normal, No masses or organomegaly and obese EXTREMITIES: LUE brachial pulse not palpable or dopplerable distal to the elbow. Absent radial and ulnar pulses. Compartments tense, mottled. Unable to flex/extend elbow, wrist, PIP, DIPs. Rest of extremeties motor and sensation grossly normal NEURO: LUE CDI PULSES: as above WOUND: Well approximated incision, Erythema BP 197/112 Pulse 104 Temp 98.6 Resp 16 Ht 5' 8 (1.73m) Wt 220 lb (99.8kg) SpO2 95% BMI 33.46 kg/(m2). O2 Therapy: Room Air DATA: Diagnostic tests reviewed for today's visit: Most recent labs and imaging results. Assessment/Plan Active Problems: Status post L biceps repair, concern for brachial artery injury - Admit Vascular surgery - NPO - IVF - pain control - OR for exploration - Orthopedics consult Medication and Non-Pharmacologic VTE Prophylaxis/Anticoagulan ts I personally saw and examined the patient on 12/24/18. I reviewed the resident's note. I agree with the resident's assessment and plan unless otherwise noted. .I saw and evaluated the patient. Discussed with the resident and agree with resident's findings and plan as documented in the resident's note. VTE Prophylaxis: VTE prophylaxis appropriate SIGNATURE: Mitchell Bryant DO PATIENT NAME: Irene Nieto DATE: December 24, 2018 TIME: 9:10 PM PAGER/CONTACT #: below Vascular AND Thoracic Surgery Service Pager: For questions or concerns Mon-Fri 6a-5p please page [phone]. After 5pm and on Weekends and Holidays, please page [phone] if in ICU or [phone] if on RNF. Normal [facility] HOSPon 12-24-2018 HOSP Patient:Bony Nieto MRN: Height:5' 8(1.727 m) Weight:240 lb 15.4 oz (109.3 kg) Outpatient Medications as of 01/02/19: oxyCODONE IR (ROXICODONE) 10 mg tab omeprazole (PRILOSEC) 20 mg capsule armodafinil (NUVIGIL) 150 mg tab Admission/Clinic Administered Medications as of 01/02/19: oxyCODONE IR 10 mg tab(s) (ROXICODONE) oxyCODONE IR 15 mg tab(s) (ROXICODONE) ceFAZolin iv piggyback 2 g in D5W (iso-osmotic) 100 mL (ANCEF) acetaminophen 975 mg tab(s) (TYLENOL) cyclobenzaprine 5 mg tab(s) (FLEXERIL) pill splitter (patient-specific) senna-docusate 8.6-50 mg 2 tablet (SENNA-S) enoxaparin 40 mg injection (LOVENOX) HYDROmorphone 1-1.5 mg injection (DILAUDID) therapeutic multivitamin with iron (THERAGRAN-M) sodium chloride 0.65 % 2 [place] (AYR, OCEAN) polyethylene glycol 3350 17 g packet (MIRALAX, GLYCOLAX) bisacodyl 10 mg suppository (DULCOLAX) ondansetron 4 mg tab(s) (ZOFRAN) ondansetron (PF) 4 mg injection (ZOFRAN) famotidine 20 mg tab(s) (PEPCID) Problem List: Other and unspecified hyperlipidemia [E78.5] Essential hypertension, benign [I10] Degeneration of intervertebral disc, site unspecified [EIM5850] Lumbago [M54.5] Tendonitis of ankle [M77.9] DILCIA (obstructive sleep apnea) [G47.33] Rhinitis [J31.0] Obesity, Class I, BMI 30-34.9 [E66.9] Injury of radial artery at forearm level, left, initial encounter [S55.102A] Limb ischemia [I99.8] Obesity, Class II, BMI 35-39.9 [E66.9] Allergies: Sudafed [Pseudoephedrine] Date Verified: 01/02/19 Lab Values Lab Value Units Date High Low POTA* 4.2 mEq/L 01/02/2019 5.1 3.5 JIMBO* 25.8 % 01/01/2019 51.0 40.1 Progress Notes (): Janny Melton RN, RN 12/24/2018 8:56 PM Signed Bed: 08-ED Expected date: 12/24/18 Expected time: 7:35 PM Means of arrival: Comments: [place] transfer PAGE HEATH, RN, RN 12/24/2018 9:02 PM Signed Ortho residents at bedside Bonnie Guo MD 12/30/2018 6:02 PM Signed VASCULAR SURGERY HISTORY AND PHYSICAL EXAMINATION SERVICE DATE: 12/24/2018 SERVICE TIME: 9:10 PM PRIMARY CARE PHYSICIAN: Luis Enrique Napier MD Subjective CHIEF COMPLAINT: Brachial artery injury HPI: This is a 53 year old male who presents as a transfer from [place]. He was assembling a swimming pool last week and felt an immediate pop and deformity of th eleft elbow. He was seen in the ED and MRI confirmed a distal biceps tear. He presented to the office of Dr Faith De Paz for elective repair today. He underwent a left biceps repair with arthrex tendon button and screw. The operative report states quickly 1 of the vessels on his anterior distal dorsal arthritis volar to the biceps tendon however is secondary the fact that it was not rettracted we lef the remaining vessels intact and Patient tolerated the procedure well no comp occasions transferred to recovery room in stable condition. Transferred to [facility] after concern for brachial artery injury. Admits to paresthesias of the L arm on the dorsal and volar aspects down to the fingers. Admits to the inability to flex, extend elbow, wrist, fingers. Denies fevers, chills, CP, SOB, cough, nausea, vomiting, constipation, diarrhea, urinary problems, or other complaints. He takes an antacid daily, no other medications. PAST MEDICAL HISTORY Diagnosis Date - Essential hypertension, benign - Lumbago - Obstructive sleep apnea PAST SURGICAL HISTORY Procedure Laterality Date - PAST SURGICAL HISTORY OF left knee No family history on file. Social History Tobacco Use - Smoking status: Never Smoker - Smokeless tobacco: Never Used Substance Use Topics - Alcohol use: No - Drug use: No (Not in a hospital admission) ALLERGIES Allergen Reactions - Sudafed [Pseudoephe* Other: See Comments Severe htn, elevated HR COMPLETE REVIEW OF SYSTEMS: 10 point review of systems was performed and negative unless otherwise noted in the HPI. Objective PHYSICAL EXAM: Physical Exam Performed: GENERAL: Obese, Mild Distress HEAD/SINUSES: No significant findings OROPHARYNX: Lips, mucosa, and tongue normal. Teeth and gums normal. Oropharynx normal. NECK: No jugulovenous distention, Supple LUNGS: Lungs clear to auscultation, Good diaphragmatic excursion CARDIAC: Normal S1 and S2; no rubs, murmurs, or gallops ABDOMEN: Abdomen soft, non-tender, BS normal, No masses or organomegaly and obese EXTREMITIES: LUE brachial pulse not palpable or dopplerable distal to the elbow. Absent radial and ulnar pulses. Compartments tense, mottled. Unable to flex/extend elbow, wrist, PIP, DIPs. Rest of extremeties motor and sensation grossly normal NEURO: LUE CDI PULSES: as above WOUND: Well approximated incision, Erythema BP 197/112 Pulse 104 Temp 98.6 Resp 16 Ht 5' 8 (1.73m) Wt 220 lb (99.8kg) SpO2 95% BMI 33.46 kg/(m2). O2 Therapy: Room Air DATA: Diagnostic tests reviewed for today's visit: Most recent labs and imaging results. Assessment/Plan Active Problems: Status post L biceps repair, concern for brachial artery injury - Admit Vascular surgery - NPO - IVF - pain control - OR for exploration - Orthopedics consult Medication and Non-Pharmacologic VTE Prophylaxis/Anticoagulan ts .I saw and evaluated the patient. Discussed with the resident and agree with resident's findings and plan as documented in the resident's note. VTE Prophylaxis: VTE prophylaxis appropriate SIGNATURE: Mitchell Bryant DO PATIENT NAME: Irene Nieto DATE: December 24, 2018 TIME: 9:10 PM PAGER/CONTACT #: below Vascular AND Thoracic Surgery Service Pager: For questions or concerns Mon-Sat 6a-5p please page [phone]. After 5pm and on Weekends and Holidays, please page [phone] if in ICU or [phone] if on RNF. Previous Version Vickie Rodriguez MD, MD 12/29/2018 11:27 AM Signed ED Provider Note Patient Name: Irene Nieto SERVICE DATE: 12/24/18 History Patient presents with: Consult: Pt comes from [facility] with recent surgery to repair L Bicep torn tendon. Pt had increased pain after surgery and swelling in L Lower arm, -pulses + numbness + pain. pt cannot move fingers at this time. Pt AANDO x3 Pt is a 53-year-old male with past medical history of hypertension presenting as a transfer from [facility] with concern for limb ischemia. Patient was having repair of a left distal biceps tendon rupture today and per the report following surgery patient was having increasing pain in that left arm where he was having the surgery with increasing swelling at that time the staff were unable to obtain a left radial pulse and so patient sent here for evaluation. Patient is complaining of severe pain to the left upper extremity. States that he has a loss of sensation in the distal arteries left upper extremity and states that he is unable to move his left elbow and entirety of his left hand. PAST MEDICAL HISTORY Diagnosis Date - Essential hypertension, benign - Lumbago - Obstructive sleep apnea PAST SURGICAL HISTORY Procedure Laterality Date - PAST SURGICAL HISTORY OF left knee No family history on file. Social History Tobacco Use - Smoking status: Never Smoker - Smokeless tobacco: Never Used Substance and Sexual Activity - Alcohol use: No - Drug use: No - Sexual activity: Not on file ALLERGIES Allergen Reactions - Sudafed [Pseudoephe* Other: See Comments Severe htn, elevated HR Review of Systems Constitutional: Negative for chills and fever. HENT: Negative for congestion and nosebleeds. Respiratory: Negative for shortness of breath and wheezing. Cardiovascular: Negative for chest pain and palpitations. Gastrointestinal: Negative for abdominal pain, constipation, diarrhea, nausea and vomiting. Genitourinary: Negative for dysuria and hematuria. Musculoskeletal: Negative for neck pain and neck stiffness. Skin: Negative for color change and rash. Neurological: Negative for dizziness and syncope. Psychiatric/Behavioral: Negative for agitation and confusion. Physical Exam BP 197/112 Pulse 104 Temp 98.6 Resp 16 Ht 5' 8 (1.73m) Wt 220 lb (99.8kg) SpO2 95% BMI 33.46 kg/(m2). O2 Therapy: Room Air Physical Exam Constitutional: He is oriented to person, place, and time. He appears well-developed and well-nourished. HENT: Head: Normocephalic and atraumatic. Eyes: Conjunctivae and EOM are normal. Neck: Normal range of motion. Neck supple. Cardiovascular: Normal rate, regular rhythm and normal heart sounds. Exam reveals no gallop and no friction rub. No murmur heard. No radial pulse palpated in the left upper extremity Pulmonary/Chest: Effort normal and breath sounds normal. Abdominal: Soft. Bowel sounds are normal. There is no tenderness. There is no rebound and no guarding. Musculoskeletal: He exhibits no deformity. Diffuse edema to the left upper extremity with dusky digits of the left upper extremity with sluggish cap refill to the affected digits. Loss of sensation to the distal left upper extremity with loss of range of motion of left hand and left elbow. Neurological: He is alert and oriented to person, place, and time. Skin: Skin is warm and dry. Capillary refill takes less than 2 seconds. Psychiatric: He has a normal mood and affect. His behavior is normal. Diagnostic Testing ED Labs Ordered and Reviewed - No data to display Procedures ED Course / Clinical Impression Clinical Impressions as of Dec 29 1125 Pain of left upper extremity Left arm swelling Decreased radial pulse MDM / Disposition / Plan 53-year-old male presenting to the emergency department with concern for left upper extremity ischemia. History of physical performed as described above. On arrival patient without a left radial pulse, extremity is cool to touch with prolonged Refill. Orthopedic team and vascular team were consulted who has seen the patient and will be taking the patient to the operating room. Vital stable throughout this time. Patient transferred to operating room in stable condition. SIGNATURE: DO Kuldip Verde (Res) Forrest, Resident 12/25/18 0054 Kuldip (Berna) Forrest, Resident 12/25/18 0102 Critical Care I spent a total of 35 minutes of critical care time in the evaluation and management of this patient. This was necessary to treat or prevent deterioration of the following condition(s): neurovascular compromise due to post surgical complication, which the patient had and/or has a high probability of suddenly developing. The patient received emergency surgery and IV Fluids during the time that critical care was provided.I discussed the plan of care with the Resident and agree with the findings documented. Critical care time excludes separately billed procedures. MD Vickie Archuleta MD 12/29/18 1127 Previous Version PAGE HEATH, RN, RN 12/24/2018 9:15 PM Signed Pt up to OR with ortho resident and surgeon Georgi Espinoza MD 12/24/2018 10:30 PM Signed I evaluated the patient and personally participated in the sims components. I agree with the resident's findings and plan as documented and have discussed the case and management of the patient's care with the resident. Discussed with Dr Guo at bedside. Signature: Georgi Espinoza MD Service Date: 12/24/2018 Service Time: 10:29 PM ORTHOPAEDIC ADMITTING HISTORY AND PHYSICAL EXAM Patient Name: Irene Nieto Admission Date: 12/24/2018 Date of Evaluation: 12/24/2018 Time of Evaluation: 9:24 PM HISTORY OF PRESENT ILLNESS: This is a 53 YO M presenting as a transfer from outside hospital for concerns for a vascular injury to his LUE after a singe-incision distal biceps repair earlier today. In [facility] ED, patient complains of pain and numbness over his entire left hand and well as inability to move his digits. Patient states that he ruptured his left distal biceps one week ago while lifting a heavy box. Patient was emergently taken to OR from the ED. PAST MEDICAL HISTORY Diagnosis Date - Essential hypertension, benign - Lumbago - Obstructive sleep apnea PAST SURGICAL HISTORY Procedure Laterality Date - PAST SURGICAL HISTORY OF left knee No current facility-administered medications for this encounter. Allergies: ALLERGIES Allergen Reactions - Sudafed [Pseudoephe* Other: See Comments Severe htn, elevated HR No family history on file. Social History Tobacco Use - Smoking status: Never Smoker - Smokeless tobacco: Never Used Substance Use Topics - Alcohol use: No - Drug use: No REVIEW OF SYSTEMS: ROS not obtained due to emergent situation RADIOGRAPHS: No new images OTHER STUDIES: Not applicable. LABS: N/A PHYSICAL EXAM: BP 197/112 Pulse 104 Temp 98.6 Resp 16 Ht 5' 8 (1.73m) Wt 220 lb (99.8kg) SpO2 95% BMI 33.46 kg/(m2). O2 Therapy: Room Air General: NAD, drowsy LUE: hand is cool to touch Incisional wound over volar/proximal forearm. No evidence of active bleeding No expanding hematoma Forearm is edematous but it remains compressible Denies sensation to light touch over m/r/u Minimal digit movement when prompted No doppler signal over radial and ulnar pulse +doppler signal over antecubital fossa PROCEDURE: Not applicable IMPRESSION: 53 YO M POD0 s/p left distal biceps repair with clinical evidence of an associated vascular injury PLAN: -Taken to OR emergently with vascular surgery for exploration of LUE wound, possible vascular repair, possible fasciotomy -Vascular surgery on consult -Discussed with Dr. Espinoza who agrees with above plan Bret Paniagua MD 12/24/18 Previous Version Georgi Espinoza MD 12/30/2018 4:23 PM Signed [facility] - Operative Report EMILIA IRENE D : 1965 AGE: 53. SEX: M PATIENT TYPE: I HOSP SVC: ORCA LOCATION: [id number] ATTENDING PHYSICIAN: BONNIE GUO CSN NUMBER: [id number] DATE OF SURGERY/PROCEDURE: 12/24/2018 INCISION/PROCEDURE START TIME: 10:13 PM INCISION CLOSE/PROCEDURE END TIME: 12:30 AM PREOPERATIVE DIAGNOSIS: 1. Acute vascular ischemia of left arm. 2. Post revascularization compartment syndrome, left arm and carpal tunnel. POSTOPERATIVE DIAGNOSIS: SAME SURGEON: Georgi Espinoza MD SCHEDULING CLERK: Dr. Mcginnis SURGERY/PROCEDURE: 1. Left carpal tunnel release. 2. Decompressive fasciotomy, left volar forearm. ANESTHESIA: General. CLINICAL NOTE: This 53-year-old gentleman had undergone a left distal biceps repair at an [facility] earlier today. In the recovery room, he was noted by his surgeon to have acute ischemia of his left hand and progressive swelling of his left elbow. It was felt that he had an acute vascular injury, requiring intervention. However, the [facility] did not have Vascular Surgery available and he was subsequently transferred emergently to our institution for evaluation. He was seen in the emergency room with the Vascular Service. He had acute ischemia of his left hand, which was cold, mottled, and pulseless. He had a contracture of his left hand diffusely. Pain on attempts at extension. He had diffuse swelling about his antecubital fossa region in the region of his surgical repair. He was subsequently taken to the operating room emergency by the Vascular team for emergent exploration. The vascular team did find an injury to the radial and ulnar arteries and performed their repair, which will be dictated separately. Following this, he had return of radial and ulnar pulses. The orthopedic team then proceeded with our prophylactic fasciotomies. DESCRIPTION OF PROCEDURE: The patient had his previous wound proximally opened, through which the vascular repair had occurred. He had diffuse swelling in the arm, but did not feel overly tight. However, given his significant degree and duration vascular changes, we proceeded with prophylactic fasciotomies. We began distally with an open carpal tunnel release. A standard incision was made and carried out through the palmar fat down to the transverse palmar ligament. This was incised initially with 15 blade and then the release was completed proximally and distally utilizing Metzenbaum scissors. We had good visualization of the median nerve and good decompression. We then performed a standard volar forearm approach. We paralleled flexor carpi radialis and carried this up toward the proximal incision. We attempted to leave a reasonable skin bridge as we were able to work underneath the skin bridge into the repair site. The interval between brachioradialis and flexor carpi radialis was identified and the fascia was opened. Brachioradialis was then retracted and we then entered the deep layer incising the flexor carpi radialis fascia and the fascia over the deep musculature. The muscles themselves appeared red and viable. There was not an excessive amount of bulging or swelling of the volar musculature.. They had good turgor. There was some contractility to bovieing. However, he still had a significant flexion contracture of his hand. The dorsal compartment was palpably soft. Thenar and hypothenar regions were palpated and found to be quite soft. He had good dopplerable pulses and capillary refill was adequate. At this point, the wounds were lavaged. We felt we had an adequate decompression. The carpal tunnel incision was closed with 4-0 nylon interrupted sutures. The proximal incision transversely in his proximal forearm region was closed over the vascular repair utilizing 4-0 nylon sutures. The fasciotomy incision was left open. However, we did use some vessel loops in a Carlos sandal type of approach to apply slight tension to keep the skin edges from retracting with the hope for future primary closure. At completion, the forearm remained very soft and compressibility. The wounds were lavaged one final time. Adaptic with bacitracin was then placed over the various wounds. We then placed 4 x 4s, ABD, and Kerlix in a very loose fashion and stabilized his arm with a posterior fiberglass splint. Access was left at the wrist level for Doppler pulse checks by the Vascular team. The patient was then transferred to the recovery room in satisfactory condition having tolerated the procedure well. He will be monitored in the CVICU for supportive care. Ancef was given intravenously preoperatively as antibiotic prophylaxis. Heparin per the vascular service. Georgi Espinoza MD GAV:[id number] Revised [facility] 12/30/18 /[id number] Yaw Mckeon MD 12/24/2018 10:05 PM Signed ANESTHESIOLOGY DAY OF SURGERY NOTE SERVICE DATE: 12/24/2018 SERVICE TIME: 10:03 PM : 1965 Procedure(s) (LRB): EXPLORATION ARTERY BRACHIAL (N/A) Surgeon(s): Bonnie Guo Estimated body mass index is 33.45 kg/m? as calculated from the following: Height as of this encounter: 172.7 cm (5' 8). Weight as of this encounter: 99.8 kg (220 lb). Most recent hematocrit and potassium results: No results found for this basename: HCT,HEMATOCRIT,K,POTASSI UM ANES DOS/PREOP NOTE: Vitals: 12/24/189 12/24/18 2100 BP: (!) 197/112 Pulse: (!) 104 Resp: 16 Temp: 37 ?C (98.6 ?F) SpO2: 95% Weight: 99.8 kg (220 lb) Height: 172.7 cm (5' 8) ACTIVE PROBLEM LIST Other and Unspecified Hyperlipidemia Essential Hypertension, Benign Degeneration of Intervertebral Disc, Site Unspecified Lumbago Tendonitis of Ankle Dilcia (Obstructive Sleep Apnea) Rhinitis PAST MEDICAL HISTORY Diagnosis Date - Essential hypertension, benign - Lumbago - Obstructive sleep apnea PAST SURGICAL HISTORY Procedure Laterality Date - PAST SURGICAL HISTORY OF left knee No family history on file. Social History: Social History Tobacco Use - Smoking status: Never Smoker - Smokeless tobacco: Never Used Substance Use Topics - Alcohol use: No - Drug use: No No current facility-administered medications on file prior to encounter. Current Outpatient Medications on File Prior to Encounter: fluticasone (FLONASE) 50 mcg/actuation nasal spray Use 2 Sprays in each nostril once daily. Rinse mouth after use. Capsicum, Cayenne, 450 mg ORAL Cap Take 2 tablets by mouth once daily. RAMÍREZ READ ORAL Take 565 mg by mouth twice daily. zinc 30 mg once daily. CYANOCOBALAMIN, VITAMIN B-12, (VITAMIN B-12 ORAL) Take 1,000 mcg/day by mouth once daily. vitamin b complex (B COMPLEX 1) ORAL Tab Take 1 tablet by mouth once daily. CINNAMON BARK (CINNAMON ORAL) Take 450 mg by mouth twice daily. multivitamin (MULTIPLE VITAMIN) ORAL tablet Take 1 tablet by mouth once daily. Ascorbic Acid (VITAMIN C) 1,000 mg ORAL tablet Take 1,000 mg by mouth twice daily. melatonin 3 mg ORAL Tab Take 3 mg by mouth daily at bedtime. simvastatin (ZOCOR) 40 mg ORAL tablet Take 1 tablet by mouth daily at bedtime. (Patient not taking: Reported on 09/30/2018 ) Current Facility-Administered Medications Medication Dose Route Frequency Provider Last Rate Last Dose - NaCl 0.9% iv infusion 5-30 mL/hr INTRAVENOUS CONTINUOUS Danilo Sauceda (Medical Imaging Director) - heparin 1,500 Units in NaCl 0.9% 250 mL INTRAVENOUS ONCE Danilo Sauceda (Medical Imaging Director) Allergies: ALLERGIES Allergen Reactions - Sudafed [Pseudoephe* Other: See Comments Severe htn, elevated HR DOS EXAM: Adequate NPO status: Yes Anesthetic risks, benefits, alternatives, personnel and consent discussed: Yes Patient agrees to proceed: Yes Previous Anesthesia: No history of adverse event. Airway Assessment: MP 3; Neck ROM: Limited Flexion and Extension; Airway Evaluation: Thick neck Symptoms of Sleep Apnea: Hypertension, BMI > 35, Age over 50 (53 year old), Neck circumference > 15.75 inches and Male gender Dentition: Poor dentition Additional Physical Exam: Lungs: Patient health status unchanged since recent history and physical. See history and physical for exam findings. Cardiac: Patient health status unchanged since recent history and physical. See history and physical for exam findings. Additional Pertinent Findings: N/A Blood Products: Not anticipated for this procedure. Anesthetic Plan: General, Standard ASA Monitors and with rapid sequence induction for presumed full stomach Pain Management Plan: Parenteral or Oral ASA Class: 3E Other Medical Problems: None Chronic Beta Zaria medication administered within 24 hours: N/A I have interviewed and examined the patient. I have reviewed the medical record and/or the pre-anesthesia evaluation, pertinent labs, and test results. Significant changes in the patient's condition since the History and Physical, not otherwise documented in primary service progress notes: No This contains updated information obtained within 48 hours of Surgery/Procedure. SIGNATURE: Yaw Mckeon MD PATIENT NAME: Irene Nieto DATE: December 24, 2018 TIME: 10:03 PM CSN: [id number] Mil Gambino MD 12/25/2018 12:37 AM Cosign Needed BRIEF OPERATIVE / PROCEDURE NOTE LOG ID: [id number] SURGERY/PROCEDURE DATE: 12/24/2018 INCISION/PROCEDURE START TIME: 10:13 PM INCISION CLOSE/PROCEDURE END TIME: SURGEON(S)/PROCEDURALIST (S) AND SCHEDULING CLERK(S): Surgeon(s) and Role: * Bonnie Guo - Primary * Mil Gambino - Resident Physician City Attorney: Kusum [place] ([place]) * Jesús Espinoza - Attending * Ja Mcginnis - Resident SURGERY/PROCEDURE(S): 1) Exploration of LUE 2) Evacuation of Hematoma 3) Repair of L Radial Artery 4) Re-Implantation of L Ulnar Artery 5) LUE Fasciotomy and Carpal Tunnel Release ANESTHESIA: General FINDINGS: Brachial artery injury, hematoma, ischemia vs necrotic muscle Post-op --> +Radial/Ulnar/Palmar signals ESTIMATED BLOOD LOSS: 100-150 mls SPECIMENS: None COMPLICATIONS: None PRE-OP/PRE-PROCEDURE DIAGNOSIS: 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 SEX: M PATIENT TYPE: I [facility]: [facility] LOCATION: [place] ATTENDING PHYSICIAN: BONNIE GUO CSN NUMBER: [id number] DATE OF SURGERY/PROCEDURE: 12/24/2018 INCISION/PROCEDURE START TIME: 10:13 PM INCISION CLOSE/PROCEDURE END TIME: 12:30 AM PREOPERATIVE DIAGNOSIS: Acute arm ischemia, status post biceps tendon repair. POSTOPERATIVE DIAGNOSIS: Acute arm ischemia, status post biceps tendon repair plus laceration to the bifurcation of the ulnar and brachial arteries with compartment syndrome. Dr. Espinoza had another part that is dictated separately. SURGEON: Bonnie Guo MD, FACS SCHEDULING CLERK: Physician City Attorney: Kusum Gambino M.D. ([place]) SURGERY/PROCEDURE: Exploration of left arm with evacuation of hematoma and reconstruction of radial and ulnar arteries. Thrombectomy of radial and ulnar arteries. Procedures performed by orthopedic service will be dictated separately. ANESTHESIA: General HISTORY: This is a 53-year-old gentleman who gave the history of suffering a biceps tendon repair a week or 2 ago while lifting some type of swimming pool out of a box. He had a biceps tendon repair at [facility] evidently in the afternoon of 12/24. The [facility] transfer line contacted me to talk with the orthopedic surgeon at [facility], who felt that the patient had some bleeding, but also had ischemic arm. The patient was evidently in the recovery room at that point in [facility] and I asked the transfer line to help facilitate transfer to [facility]. Dr. Espinoza also became involved, was able to get the patient transferred to the emergency room fairly promptly. At that point, we evaluated the patient who was unable to straighten his fingers and had a tense arm with blistering skin on the left side and Doppler signals down to the antecubital region, but not distal to the incision made earlier today for his biceps tendon repair. He was brought emergently to the operating room where we did repair the injury as noted above and also Dr. Espinoza performed fasciotomies as will be dictated in his operative report. DESCRIPTION OF PROCEDURE: After the patient was brought to the OR, he was induced with general anesthesia and the left arm was sterilely prepped and draped with maximal barrier precaution. We also prepped the right thigh area should vein harvesting be needed. Antibiotics were given to the patient per anesthesia personnel and they also started in a radial art line on the right. We opened the transverse incision after draping and found some bleeding. Retractors were placed and we were able to do gain control and stop bleeding at that time, just with a little bit of compression. A large amount at least 8 ounces or so of clot was able to be expressed out of the wound as well. I did give 5000 units of heparin shortly after that to try and maintain patency. We initially did not have much back bleeding, but we could see probably a tear that ran 3 mm down the inside of the radial and the ulnar arteries at that point. After a little bit improved exposure, we got bulldogs on the vessels. The ulnar artery we decided to just divide entirely and use a flap of that ulnar to repair the distal end of the brachial and radial artery. This repair was done fairly simply with about 5 interrupted 7-0 Prolene sutures. We were at that point able to open up the flow down the radial artery and did get Doppler signals at the wrist level which we had not had previously. We did put the 2 thrombectomy catheter down the radial artery also before we did the repair and got not great backflow, but also got no thrombus whatsoever. #2 embolectomy catheter was passed to the wrist level. As we evaluated the end of the ulnar artery, we trimmed this up a little bit to freshen the end and it appeared that we would be able to do another anastomosis to the radial artery more distal to where the repair was that we adjust fashion. At that point, we did pass the embolectomy catheter down the ulnar artery as well got about 15 cm down that before it stopped, but no clot was retrieved from that. We had fairly weak backflow fromthe ulnar artery originally, although once the radial artery was opened, we did get some improved backflow. We then occluded the radial artery between dogs and created a longitudinal opening there before the anastomosis to the end of the ulnar artery. We used a running 7-0 Prolene on that anastomosis and initially it looked good, but we did not have great flow. Another transverse arteriotomy was made just distal to that anastomosis with the 11-blade and we were able to pass the right angle clamp across the radial ulnar artery anastomotic level without any problem. We then closed that transverse arteriotomy with couple of interrupted Prolene and at that junction, as we listened with the Doppler. We actually had good Doppler signals down the ulnar as well as the radial artery. There was still a lot of swelling in the forearmarea. We had Doppler signals in the ulnar and radial artery, although at times were somewhat blood pressure dependent. We felt that we had adequate hemostasis in the transverse antecubital area wound that we had reopened. Dr. Espinoza entered the case and proceeded to perform appropriate fasciotomies at the hand and arm level. I stayed in the room at that point until dressings were applied. We had Doppler signals again, albeit not necessarily strong depending on the blood pressure at both the radial and ulnar regions. When the blood pressure was a little stronger, we actually had radial snuffbox Doppler signals as well. Orthopedic dressings were applied including the splint. We had gone to talk to the patient's family and on return to the operating room Anesthesia decided not to extubate the patient, who had a little bit of airway problem and intubation. He was then transferred to the CVICU for further monitoring. Bonnie Guo MD, FACS RGN:[id number] /[id number] cc: * Dr. Luis Enrique Napier Previous Version Arthur Gibson MD 12/25/2018 3:37 AM Signed CRITICAL CARE CONSULT NOTE SERVICE DATE: 12/25/2018 SERVICE TIME: 2:10 AM REASON FOR CONSULT: post op vent management REQUESTING PHYSICIAN: Bonnie Guo ADMITTING PROVIDER: Bonnie Guo SERVICE DATE: 12/25/2018 SERVICE TIME: 2:10 AM Admission Date: 12/24/2018 AGE: [age] year old LOS: 0 days Subjective Patient seen post op History obtained from the chart as patient is sedated and intubated Patient was transferred from [facility] for concern of brachial artery injury after surgical left biceps repair, he underwent an exploration of his LUE with hematoma evacuation, Left radial artery repair, re implantation of left unlar artery and LUE fasciotomy with carpal tunnel release , patientwas transferred to the CVICU sedated and intubated Objective PROBLEMS: ACTIVE PROBLEM LIST Other and Unspecified Hyperlipidemia Essential hypertension, benign Degeneration of Intervertebral Disc, Site Unspecified Lumbago Tendonitis of Ankle Dilcia (Obstructive Sleep Apnea) Rhinitis Obesity, Class I, Bmi 30-34.9 Injury of Radial Artery At Forearm Level, Left, Initial Encounter Limb Ischemia PAST MEDICAL HISTORY Diagnosis Date - Essential hypertension, benign - Injury of brachial artery, initial encounter 12/24/2018 - Lumbago - Obstructive sleep apnea PAST SURGICAL HISTORY Procedure Laterality Date - PAST SURGICAL HISTORY OF left knee Social History Socioeconomic History Marital status: Spouse name: Not on file Number of children: Not on file Years of education: Not on file Highest education level: Not on file Social Needs Financial resource strain: Not on file Food insecurity - worry: Not on file Food insecurity - inability: Not on file Transportation needs - medical: Not on file Transportation needs - non-medical: Not on file Occupational History Not on file Tobacco Use Smoking status: Never Smoker Smokeless tobacco: Never Used Substance and Sexual Activity Alcohol use: No Drug use: No Sexual activity: Not on file Other Topics Concerns: Not on file Social History Narrative Not on file VITAL SIGNS (last 24hrs min/max): Temp Av.4 ?C (99.4 ?F) Min: 36.6 ?C (97.9 ?F) Max: 38.1 ?C (100.6 ?F) Pulse Av Min: 98 Max: 146 Arterial BP 1 Min: 174/88 Max: 198/96 Cuff BP Min: 197/112 Max: 197/112 Pain Level: 0 Vital signs reviewed. BP 197/112 Pulse 99 Temp (Src) 100.6 (Skin) Resp 11 Ht 5' 8 (1.73m) Wt 220 lb 7.4 oz (100.0kg) SpO2 99% BMI 33.53 kg/(m2). O2 Therapy: Ventilator, %FIO2: 30 Temp (24hrs), Av.4 ?C (99.4 ?F), Min:36.6 ?C (97.9 ?F), Max:38.1 ?C (100.6 ?F) NET FLUID BALANCE No intake or output data in the 24 hours ending 12/25/18 0210 MEDICATIONS Current Facility-Administered Medications Medication Dose Route Frequency - meperidine (PF) 12.5 mg injection (DEMEROL) 12.5 mg INTRAVENOUS q 10 MIN PRN - fentaNYL 50 mcg/mL 50 mcg injection (SUBLIMAZE) 50 mcg INTRAVENOUS q 5 MIN PRN - HYDROmorphone 0.5 mg injection (DILAUDID) 0.5 mg INTRAVENOUS q 10 MIN PRN - oxyCODONE IR 5 mg tab(s) (ROXICODONE) 5 mg ORAL PRN - ondansetron (PF) 4 mg injection (ZOFRAN) 4 mg INTRAVENOUS PRN - potassium chloride 80-120 mEq oral liquid 80-120 mEq ORAL/FEEDING TUBE PRN - potassium chloride iv piggyback 20 mEq/100 mL 20 mEq INTRAVENOUS PRN - magnesium sulfate in water 2 g in sterile water 50 ml 2 g INTRAVENOUS PRN - sodium phosphate 45 mmol in NaCl 0.9% 250 mL 45 mmol INTRAVENOUS PRN - calcium gluconate 4 g in NaCl 0.9% 250 mL 4 g INTRAVENOUS PRN - ondansetron 4 mg tab(s) (ZOFRAN) 4 mg ORAL q 6 H PRN Or - ondansetron (PF) 4 mg injection (ZOFRAN) 4 mg INTRAVENOUS q 6 H PRN - heparin iv infusion (STANDARD NOMOGRAM) 25,000 units in NaCl 0.45% 250 mL PREMIX 0-3,000 Units/hr INTRAVENOUS CONTINUOUS And - heparin RATE CHANGE bolus 1,000-10,000 Units for subtherapeutic aptt results 1,000-10,000 Units INTRAVENOUS PRN - heparin nomogram - NO INITIAL BOLUS OTHER ONCE (heparin bolus) - NaCl 0.9% iv infusion 150 mL/hr INTRAVENOUS CONTINUOUS - fentaNYL 50 mcg/mL 25 mcg injection (SUBLIMAZE) 25 mcg INTRAVENOUS q 2 H PRN - Chlorhexidine Gluconate 0.12 % 15 mL (PERIDEX) 15 mL ORAL q 12 H - famotidine 20 mg injection (PEPCID) 20 mg INTRAVENOUS q 12 H - propofol infusion (DIPRIVAN) 5-60 mcg/kg/min INTRAVENOUS CONTINUOUS - fentaNYL 50 mcg/mL 25-50 mcg injection (SUBLIMAZE) 25-50 mcg INTRAVENOUS q 2 H PRN Lines, Drains, and Airways Line Peripheral Right Hand 20 Gauge -- days Arterial Line 12/24/182214 Arterial Line Right Radial less than 1 day Peripheral 12/24/182149 Right Arm 16 Gauge less than 1 day Airway Airway Endotracheal Tube -- days PHYSICAL EXAM PERFORMED: Gen: sedated in NAD Cardiovascular: Regular rhythm Respiratory: Clear to auscultation %FIO2 Min: 30 Max: 30 Abdomen: Soft and Nontender Extremities: left upper extremities wrapped, right upper extremity with radial Essence Neurologic: Sedated Respiratory/Nursing Documentation: O2 Therapy: Ventilator () Invasive Ventilator Mode: Pressure Regulated Volume Control () Set Ventilator Respiratory Rate (BPM): 12 () Total Respiratory Rate (BPM): 15 () Tidal Volume Set (mL): 500 () Exhaled Tidal Volume (mL): 541 () Minute Volume (L): 6.8 () Peak Inspiratory Pressure (cm H2O): 18 () PEEP/CPAP (cm H2O): 5 () HEMODYNAMIC DATA: Reviewed NUTRITION: Enteral Feeds: No NPO DATA: Diagnostic tests reviewed for today's visit, films/specimens were personally reviewed by me: Most recent labs and imaging results. LABS: Recent Labs CK 2,381* WBC 13.42* RBC 4.51* HB 12.3* HCT 38.4* MCV 85.1 PLT 216 GLUC 141* BUN 12 CREAT 0.78 NA 138 K 4.4 CHLOR 106 CO2 22 CA 7.9* PTSEC 10.5 APTT 32.9* INR 1.01 ABG: Invalid input(s): [id number] Assessment/Plan IMPRESSION: Critical Care Documentation: The patient has the following organ/system impairment(s): Anticipated post op resp insufficiency Difficult airway during the procedure S/p Repair of L Radial Artery hypertension DILCIA Obesity CRITICAL CARE PLAN: Will keep sedated and intubated overnight Vent adjusted as patient was double triggering SAT SBT in am with possible extubation BP management with caution pepcid Heparin drip Pain control Rest per primary team This patient has a high probability of sudden, clinically significant deterioration, which requires the highest level of physician preparedness to intervene urgently. I managed/supervised life or organ supporting interventions that required frequent physician assessment. I devoted my full attention to the direct care of this patient for the amount of time indicated below. Time I spent with family or surrogate(s) is included only if the patient was incapable of providing the necessary information or participating in medical decision making. Time devoted to teaching is not included. Discussed with staff Time spent providing critical care services: 35 minutes excluding procedures. SIGNATURE: Arthur Gibson MD PATIENT NAME: Irene Nieto DATE: December 25, 2018 TIME: 2:10 AM Sheila Quintanilla RN, RN 12/25/2018 2:14 AM Signed Nursing Progress: Topic: RESTRAINT NON-VIOLENT PATIENT NAME: Irene Nieto PATIENT LOCATION: [place] [address] [address] * The patient demonstrates Attempting to Remove Medical Devices Vital to Medical Stability, Impulsive Behavior as evidenced by the following behaviors trying to pull at et tube, condom cath,unable to retain safety information which pose an imminent danger to self or others. The following interventions were attempted but were not effective in protecting the patient's safety: Alarms, Bed in Low/Locked Position, Call Light Within Reach Next, a comprehensive assessment was performed and warranted placing the patient in Soft Bilateral Wrists, the least restrictive restraint needed to protect the patient's safety. Ongoing safety assessments and evaluation for earliest removal of restraints will be performed. DATE: December 25, 2018 TIME: 2:14 AM SCOTTY Hair MD 12/25/2018 8:09 AM Addendum I evaluated the patient and personally participated in the sims components. I agree with the resident's findings and plan with the following revisions and/or additions: Remains intubated and sedated. Hand warm, pink. Less finger contracture. Able to passively extend without increase in heart rate etc. Dressing dry. Continue supportive care. Signature: Georgi Espinoza MD Service Date: 12/25/2018 Service Time: 8:08 AM. ORTHOPAEDIC SURGERY DAILY PROGRESS NOTE Patient Name: Irene Nieto Date of Evaluation: 12/25/2018 Admission Date: 12/24/2018 Time of Evaluation: 6:45 AM ASSESSMENT: 53yo M POD#1 s/p L radial and ulnar artery repairs, L forearm volar fasciotomy, L CTR PLAN: - PT/OT: Non Weight Bearing left upper - DVT Prophylaxis: Heparing gtt - Appreciate ICU recommendations - Vascular following - Braun: Maintain for surgical immobilization and I/Os - Post-op Abx: Post-op Ancef in progress - Dressing: Dry dressing, Long posterior splint - Plan for repeat IANDD within the next 2-3 days. Will determine timing with staff surgeon INTERVAL HPI: Patient monitored, no new events overnight. OBJECTIVE: BP (!) 197/112 Pulse 99 Temp 37.4 ?C (99.3 ?F) Resp 14 Ht 172.7 cm (5' 8) Wt 106.1 kg (233 lb 14.5 oz) SpO2 99% BMI 35.57 kg/m? Intake/Output Summary (Last 24 hours) 12/24 2300 - 12/25 0659 In: 1750 [IV:1750] Out: 0 Exam: General: Intubated and sedated Extremities: Left Upper Extremity: Dressing clean, dry and intact. Motor and sensation not tested due to sedation Radial pulse palpable. Dopplerable radial and ulnar pulses Compartments soft, compressible. Passive ROM of finger present Labs: BMP: Sodium 138 12/25/2018 Potassium 4.4 12/25/2018 Chloride 106 12/25/2018 CO2 22 12/25/2018 BUN 12 12/25/2018 Creatinine 0.78 12/25/2018 Glucose 141 12/25/2018 CBC: WBC 13.42 12/25/2018 HGB 12.3 12/25/2018 Hematocrit 38.4 12/25/2018 Platelet Count 216 12/25/2018 Jyoti Mcginnis MD Orthopaedic Surgery, PGY-4 Please page [phone] from 5p-6a and on weekends for any issues. Cell #: [phone] Pager #: [phone] 12/25/2018 6:45 AM Previous Version Yaw Mckeon MD 12/25/2018 6:51 AM Signed POST ANESTHESIA EVALUATION NOTE SERVICE DATE: 12/25/2018 SERVICE TIME: 6:51 AM : 1965 Vitals: 12/25/18 0515 12/25/18 0530 12/25/18 0545 12/25/18 0600 Temp: 37.6 ?C (99.7 ?F) 37.5 ?C (99.5 ?F) 37.4 ?C (99.3 ?F) 37.4 ?C (99.3 ?F) 12/25/18 0515 12/25/18 0530 12/25/18 0545 12/25/18 0600 Arterial BP 1: 153/75 161/79 167/82 181/88 BP: 12/25/18 0515 12/25/18 0530 12/25/18 0545 12/25/18 0600 Pulse: 98 98 98 99 12/25/18 0515 12/25/18 0530 12/25/18 0545 12/25/18 0600 Resp: 12 13 13 14 12/25/18 0515 12/25/18 0530 12/25/18 0545 12/25/18 0600 SpO2: 98% 99% 99% 99% Validated Vital Signs: Yes POST ANES STATUS: No apparent anesthetic complications. The patient is appropriately hydrated with stable respiratory and cardiovascular status. Patient has safe and adequate airway control. The patient has appropriate pain relief and no significant post operative nausea or vomiting. The patient has achieved baseline mental status. Intra-Operative Events: No Significant Anesthesia Events Further assessment by Anesthesia Service: None Other Remarks: SIGNATURE: Yaw Mckeon MD PATIENT NAME: Irene Nieto DATE: December 25, 2018 TIME: 6:51 AM PAGER/CONTACT #: Cristo Cornejo RN, RN 12/25/2018 11:00 AM Signed Nursing Progress: Topic: RESTRAINT NON-VIOLENT PATIENT NAME: Irene Nieto PATIENT LOCATION: [id number] * The patient demonstrates Attempting to Remove Medical Devices Vital to Medical Stability as evidenced by the following behaviors remove manager medical which pose an imminent danger to self or others. The following interventions were attempted but were not effective in protecting the patient's safety: Family/Significant Other Involvement, Bed in Low/Locked Position, Call Light Within Reach Next, a comprehensive assessment was performed and warranted placing the patient in Soft Bilateral Wrists, the least restrictive restraint needed to protect the patient's safety. Ongoing safety assessments and evaluation for earliest removal of restraints will be performed. DATE: December 25, 2018 TIME: 11:00 AM SCOTTY Simental, RN, RN 12/25/2018 9:54 AM Signed Wound care to sign off at this time. Patient POD #1, left arm with dressing and splint intact. Ortho and Vascular on at this time. Spoke with bedside SCOTTY Pickens, instructed to re-consult wound care if needed for any new concerns. Georgi Espinoza MD 12/25/2018 1:49 PM Signed Patient extubated, awake and alert. Hand pink with palpable radial pulse. Complains of pain, burning and pressure sensation. No active ROM. No increased symptoms with passive finger extension. No sensation to light touch diffusely. Continue to monitor. Plan repeat I and D and attempted delayed wound closure in next 2 days. MD SCOTTY Martinez, MUSIC PUBLISHER 12/25/2018 2:18 PM Addendum MEDICATION HISTORY AND MEDICATION RECONCILIATION Patient Name:Maggie Nieto : 1965 Source of history:Patient: Reliability of source: Appears reliable, clearly identified: Medication name, Medication dose, Medication route and Medication frequency Medication Nonadherence Identified: No barriers noted The above information represents the best possible medication history: Yes Reconciliation completed? Yes All [employer]PER medications addressed by LIP Additional comments: 11/29/2018 1 11/28/2018 Armodafinil 150 MG Tablet 30 30 Pa Tri [id number] Dale ([id number]) 0 Private Pay [place] Patient Compliance: Good [id number] Medication List Adjustments: Medication Regimen Changes Medication Change Reason na na na Medications Added Medication Regimen Source/Comments Omeprazole 20mg Once daily Per patient Nuvigil 150mg Take 0.5 tabs for work (shift work disorder) Per patient and oarrs Medications Removed Medication Reason OTC supplements: Vit C, cayene capsicum, cinnamon bark, Flonase, ramírez read, melatonin, multivitamin, vitamin B complex, zinc Discontinued by patient simvastatin Discontinued by patient Short-Term Medications: Medication Regimen Indication Duration/Stop Date na na na Further Clarification Required: Medication Issue na na Patient is a 30 day readmission: No Patient Interested in Bedside Delivery: No Time Spent Reviewing Patient's Medications: 15 minutes Medication History Status (Justify NOT COMPLETED status): COMPLETED Allergies: ALLERGIES Allergen Reactions - Sudafed [Pseudoephe* Other: See Comments Severe htn, elevated HR Preferred Pharmacy: [facility] [address] [place] [id number] [facility] [phone] Current [employer] Medications: Prior to Admission medications as of 12/25/18 1415 Medication Sig Last Dose Taking omeprazole (PRILOSEC) 20 mg capsule Take 20 mg by mouth once daily. Yes armodafinil (NUVIGIL) 150 mg tab Take 75 mg by mouth once daily. For shift work disorder Yes SCOTTY GRAYSON, MUSIC PUBLISHER December 25, 2018 2:15 PM Previous Version Zarina Bone RN, RN 12/25/2018 3:26 PM Signed CARE MANAGEMENT: ASSESSMENT AND DISCHARGE PLAN SERVICE DATE: 12/25/2018 SERVICE TIME: 3:21 PM PRIMARY CARE PHYSICIAN: Luis Enrique Napier MD ADMISSION STATUS: Inpatient Needs Prior to Discharge: Discharge Prescriptions;To Be Determined MEDICAL: Patient/Epic Prelude Analyst Stated Goals: To have reduction in pain To have reduction in symptoms To improve my functional status To return home to life as it was To be cured/healed Health Insurance: [email or web address] PPO None Health Issues Impacting Discharge Plan: Newly diagnosed compartment syndrome, s/p lt radial ulnar artery repair and fasciotomy Last Admission Date: none Is this Within the Past 30 days? No Advance Directive: Current Advance Directive: None Agronomy Location Manager Attempted to Assist with AD Completion: Yes Action: Patient Unwilling Health Literacy: 1. How often do you need to have someone help you when you read instructions, pamphlets, or other written material from your doctor or pharmacy? Never - 1 2. How confident are you filling out medical forms by yourself? Extremely - 1 If Patient scores > 3 on either question, the following interventions were put into place: Patient did not score > 3 FUNCTIONAL AND COGNITIVE/BEHAVIORAL PRIOR TO ADMISSION: Baseline Mental Status: Alert AND Oriented, Person, Place , Time and Situation Functional Status: Independent Does Patient Currently Receive Any Community Services or Home Care? None Equipment Prior to Admission: None Has the Patient Been in a [facility] Facility in the Past 30 days? No SOCIAL: Living Arrangement: Home Lives With: Spouse Financial Resources: Employed: [employer] Primary Contact: Extended Emergency Contact Information Primary Emergency Contact: Inga Nieto Address: [address] [place] [id number] [address] Relation: Spouse Supportive: Yes Other Important Patient Contacts: None Caregiver Assessment: Caregiver is ready, willing and able to meet the patient's needs as recommended by the inter-professional team? Yes Patient's transition needs and plan for meeting these needs: tbd, home Does the patient have an acute stroke diagnosis, or has the patient had a stroke during this admission? No Medication Adherence: I am convinced of the importance of my prescription medication: Agree completely - 0 I worry that my prescription medication will do more harm than good to me Disagree completely - 0 I feel financially burdened by my [id number] expenses for my prescription medication: Disagree completely - 0 Patient is categorized as low risk < 2 Are you interested in bedside delivery of your medications? No Food Concerns: In the Last Month, Have You had Trouble Getting Food? No trouble getting food During the Last Month, Have You Worried Whether Your Food Would Run Out Before You Had Enough Money to Buy More? No Is the Patient Psychosocially Complex? No ASSESSMENT AND PLAN: Medical Needs: None Psychosocial Needs: None FREEDOM OF CHOICE EXPLAINED: N/A POTENTIAL TRANSITION PLANS Home To Be Determined Met with pt, explained CM role. 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 RX from [facility] retail pharmacy. S/p lt radial ulnar artery repair and fasciotomy. Pt states plan is to have fasciotomy closed this weekend. Hope is to return home at disch. Will follow for disch needs. SIGNATURE: Zarina Bone RN PATIENT NAME: Irene Nieto DATE: December 25, 2018 TIME: 3:20 PM PAGER/CONTACT #: [phone] Livan Funez MD 12/25/2018 3:41 PM Signed MICU - PROGRESS NOTE SERVICE DATE: December 25, 2018 Admission Date: 12/24/2018 AGE: [age] year old LOS: 0 days Subjective Intubated, sedated. No acute events overnight. Follows requests, minimal secretions. Cuff leak present. Vent changed to PSV 10/5 with good Vt (>450 ml) and RR < 20. Extubated in the presence of anesthesia. Objective PROBLEMS: ACTIVE PROBLEM LIST Other and Unspecified Hyperlipidemia Essential hypertension, benign Degeneration of Intervertebral Disc, Site Unspecified Lumbago Tendonitis of Ankle Dilcia (Obstructive Sleep Apnea) Rhinitis Obesity, Class I, Bmi 30-34.9 Injury of Radial Artery At Forearm Level, Left, Initial Encounter Limb Ischemia PAST MEDICAL HISTORY Diagnosis Date - Essential hypertension, benign - Injury of brachial artery, initial encounter 12/24/2018 - Lumbago - Obstructive sleep apnea PAST SURGICAL HISTORY Procedure Laterality Date - PAST SURGICAL HISTORY OF left knee Social History Socioeconomic History Marital status: Spouse name: Not on file Number of children: Not on file Years of education: Not on file Highest education level: Not on file Social Needs Financial resource strain: Not on file Food insecurity - worry: Not on file Food insecurity - inability: Not on file Transportation needs - medical: Not on file Transportation needs - non-medical: Not on file Occupational History Not on file Tobacco Use Smoking status: Never Smoker Smokeless tobacco: Never Used Substance and Sexual Activity Alcohol use: No Drug use: No Sexual activity: Not on file Other Topics Concerns: Not on file Social History Narrative Not on file VITAL SIGNS (last 24hrs min/max): Temp Av.6 ?C (99.7 ?F) Min: 36.6 ?C (97.9 ?F) Max: 38.1 ?C (100.6 ?F) Pulse Av.3 Min: 95 Max: 146 Arterial BP 1 Min: 132/101 Max: 198/96 Cuff BP Min: 124/65 Max: 197/112 Pain Level: 5 Vital signs reviewed. BP 156/77 Pulse 115 Temp (Src) 100.4 (Skin) Resp 20 Ht 5' 8 (1.73m) Wt 233 lb 14.5 oz (106.1kg) SpO2 98% BMI 35.57 kg/(m2). O2 Therapy: Room Air, Liters: 2, %FIO2: 30 Temp (24hrs), Av.6 ?C (99.7 ?F), Min:36.6 ?C (97.9 ?F), Max:38.1 ?C (100.6 ?F) NET FLUID BALANCE Intake/Output Summary (Last 24 hours) at 12/25/2018 1534 Last data filed at 12/25/2018 1153 Gross per 24 hour Intake 2464.6 ml Output 980 ml Net 1484.6 ml MEDICATIONS Current Facility-Administered Medications Medication Dose Route Frequency - potassium chloride 80-120 mEq oral liquid 80-120 mEq ORAL/FEEDING TUBE PRN - potassium chloride iv piggyback 20 mEq/100 mL 20 mEq INTRAVENOUS PRN - magnesium sulfate in water 2 g in sterile water 50 ml 2 g INTRAVENOUS PRN - sodium phosphate 45 mmol in NaCl 0.9% 250 mL 45 mmol INTRAVENOUS PRN - calcium gluconate 4 g in NaCl 0.9% 250 mL 4 g INTRAVENOUS PRN - ondansetron 4 mg tab(s) (ZOFRAN) 4 mg ORAL q 6 H PRN Or - ondansetron (PF) 4 mg injection (ZOFRAN) 4 mg INTRAVENOUS q 6 H PRN - heparin iv infusion (STANDARD NOMOGRAM) 25,000 units in NaCl 0.45% 250 mL PREMIX 0-3,000 Units/hr INTRAVENOUS CONTINUOUS And - heparin RATE CHANGE bolus 1,000-10,000 Units for subtherapeutic aptt results 1,000-10,000 Units INTRAVENOUS PRN - NaCl 0.9% iv infusion 150 mL/hr INTRAVENOUS CONTINUOUS - Chlorhexidine Gluconate 0.12 % 15 mL (PERIDEX) 15 mL ORAL q 12 H - propofol infusion (DIPRIVAN) 5-60 mcg/kg/min INTRAVENOUS CONTINUOUS - ceFAZolin iv piggyback 2 g in D5W (iso-osmotic) 100 mL (ANCEF) 2 g INTRAVENOUS q 8 HR - fentaNYL 50 mcg/mL 25-50 mcg injection (SUBLIMAZE) 25-50 mcg INTRAVENOUS q 2 H PRN - hydrALAZINE 10 mg injection (APRESOLINE) 10 mg INTRAVENOUS q 4 H PRN - HYDROmorphone 1 mg injection (DILAUDID) 1 mg INTRAVENOUS q 2 H PRN - metoprolol 5 mg injection (LOPRESSOR) 5 mg INTRAVENOUS q 6 H PRN Lines, Drains, and Airways Line Peripheral Right Hand 20 Gauge -- days Arterial Line 12/24/182214 Arterial Line Right Radial less than 1 day Peripheral 12/24/182149 Right Arm 16 Gauge less than 1 day Drain External Collection Device 12/25/18 0100 Assessment less than 1 day PHYSICAL EXAM PERFORMED: General: no acute distress Cardiovascular: Regular rhythm Respiratory: Clear to auscultation Abdomen: Soft Extremities: Edema- No and left arm in dressing/bandage Neurologic: Moving all extremities Respiratory/Nursing Documentation: O2 Therapy: Room Air (12/25/18 1400) Invasive Ventilator Mode: Pressure Regulated Volume Control (12/25/18 0809) Set Ventilator Respiratory Rate (BPM): 12 (12/25/18 0809) Total Respiratory Rate (BPM): 12 (12/25/18 08) Tidal Volume Set (mL): 520 (12/25/18 08) Exhaled Tidal Volume (mL): 519 (12/25/18 08) Minute Volume (L): 6.5 (12/25/18 08) Peak Inspiratory Pressure (cm H2O): 22 (12/25/18808) PEEP/CPAP (cm H2O): 5 (12/25/18808) HEMODYNAMIC DATA: Reviewed DATA: Diagnostic tests reviewed for today's visit, films/specimens were personally reviewed by me: Most recent labs and imaging results. LABS: Recent Labs 12/25/18 1320 12/25/18 0640 12/25/18 0100 CK 14,590* 7,634* 2,381* WBC -- 8.87 13.42* RBC -- 4.14* 4.51* HB -- 11.1* 12.3* HCT -- 34.8* 38.4* MCV -- 84.1 85.1 PLT -- 162 216 GLUC -- 118* 141* BUN -- 10 12 CREAT -- 0.81 0.78 NA -- 138 138 K -- 4.1 4.4 CHLOR -- 106 106 CO2 -- 26 22 CA -- 7.9* 7.9* PTSEC -- -- 10.5 APTT -- 91.2* 32.9* INR -- -- 1.01 ABG: Recent Labs 12/25/18 0640 PH 7.360 PO2 132.0* PCO2 47.1* CXR Cardiomegaly. ?Atelectasis at the lung bases. ?Lines and tubes as noted. Assessment/Plan IMPRESSION: Anticipated post op resp insufficiency Difficult airway during the procedure S/p Repair of L?Radial?Artery hypertension DILCIA Obesity PLAN: ? Extubated without difficuty ? Wean oxgyen to room air ? IS ? Increase activity as tolerated ? Heparin gtt per primary service ? BP control ? Hydralazine prn ? ICU monitoring ? Supportive care ? Pulm/CC s/o. Please call with questions/concerns. SIGNATURE: Livan Funez MD PATIENT NAME: Irene Nieto DATE: December 25, 2018 TIME: 3:34 PM Bonnie Guo MD 12/30/2018 6:03 PM Signed Vascular Progress Note SERVICE DATE: 12/25/2018 Vascular AND Thoracic Surgery Service Pager: For questions or concerns Sat-Sat 6a-5p please page [phone]. After 5pm and on Weekends and Holidays, please page [phone] if in ICU or [phone] if on RNF. Subjective SUBJECTIVE: Pt intubated this morning. No issues overnight. Denies N/V/CP/SOB Diet: DIET LIQUID Objective OBJECTIVE: Vitals: BP 156/77 Pulse 115 Temp (Src) 100.6 (Skin) Resp 20 Ht 5' 8 (1.73m) Wt 233 lb 14.5 oz (106.1kg) SpO2 100% BMI 35.57 kg/(m2). O2 Therapy: Room Air, Liters: 2, %FIO2: 30 Temp (24hrs), Av.7 ?C (99.9 ?F), Min:36.6 ?C (97.9 ?F), Max:38.1 ?C (100.6 ?F) O2 Therapy: Room Air IANDO: Date 12/24/18 1500 - 12/25/18 0659 12/25/18 0700 - 12/26/18 0659 Shift 4677-8226 8514-4263 24 Hour Total 3563-4799 1418-9081 0919-6513 24 Hour Total INTAKE IV 1750 1750 714.6 714.6 NS 0.9% 600 600 570 570 Heparin IV 70 70 58 58 LR 1000 1000 Propofol IV 80 80 86.6 86.6 Shift Total 1750 1750 714.6 714.6 OUTPUT Urine 0 0 151 678 6021 Output ( External Collection Device 12/25/18 0100 Assessment) 0 0 100 558 7026 Tubes 0 0 30 30 Output ([REMOVED] GI Feed 12/25/18 0210 Assessment Gastric Mouth 12/25/18 1050) 0 0 30 30 Shift Total 0 0 719 565 2120 Weight (kg) 99.8 106.1 106.1 106.1 106.1 106.1 106.1 MEDICATIONS Current Facility-Administered Medications Medication Dose Route Frequency - potassium chloride 80-120 mEq oral liquid 80-120 mEq ORAL/FEEDING TUBE PRN - potassium chloride iv piggyback 20 mEq/100 mL 20 mEq INTRAVENOUS PRN - magnesium sulfate in water 2 g in sterile water 50 ml 2 g INTRAVENOUS PRN - sodium phosphate 45 mmol in NaCl 0.9% 250 mL 45 mmol INTRAVENOUS PRN - calcium gluconate 4 g in NaCl 0.9% 250 mL 4 g INTRAVENOUS PRN - ondansetron 4 mg tab(s) (ZOFRAN) 4 mg ORAL q 6 H PRN Or - ondansetron (PF) 4 mg injection (ZOFRAN) 4 mg INTRAVENOUS q 6 H PRN - heparin iv infusion (STANDARD NOMOGRAM) 25,000 units in NaCl 0.45% 250 mL PREMIX 0-3,000 Units/hr INTRAVENOUS CONTINUOUS And - heparin RATE CHANGE bolus 1,000-10,000 Units for subtherapeutic aptt results 1,000-10,000 Units INTRAVENOUS PRN - NaCl 0.9% iv infusion 150 mL/hr INTRAVENOUS CONTINUOUS - Chlorhexidine Gluconate 0.12 % 15 mL (PERIDEX) 15 mL ORAL q 12 H - fentaNYL 50 mcg/mL 25-50 mcg injection (SUBLIMAZE) 25-50 mcg INTRAVENOUS q 2 H PRN - hydrALAZINE 10 mg injection (APRESOLINE) 10 mg INTRAVENOUS q 4 H PRN - HYDROmorphone 1 mg injection (DILAUDID) 1 mg INTRAVENOUS q 2 H PRN - famotidine 20 mg tab(s) (PEPCID) 20 mg ORAL BID - metoprolol 5 mg injection (LOPRESSOR) 5 mg INTRAVENOUS q 6 H PRN - oxyCODONE-acetaminophen 5-325 mg 1-2 tablet (PERCOCET) 1-2 tablet ORAL q 4 H PRN - gabapentin 200 mg cap(s) (NEURONTIN) 200 mg ORAL q 12 H Labs: Recent Labs 12/25/18 0640 12/25/18 0100 NA 138 138 K 4.1 4.4 CHLOR 106 106 CO2 26 22 BUN 10 12 CREAT 0.81 0.78 GLUC 118* 141* ANION 10 14 CA 7.9* 7.9* WBC 8.87 13.42* HB 11.1* 12.3* HCT 34.8* 38.4* PLT 162 216 LACT 1.1 -- INR -- 1.01 PH 7.360 -- PCO2 47.1* -- PO2 132.0* -- BE 0.7 -- Recent Labs 12/25/18 0640 PH 7.360 PCO2 47.1* PO2 132.0* BE 0.7 Exam: GENERAL: Intubated and sedated SKIN: Skin color, texture, turgor normal. No rashes or lesions. LUNGS: Unlabored breathing on O2 Therapy: Room Air on Liters: 2 sating at SpO2: 100 % CARDIAC: rate and rhythm as above, ABDOMEN: Benign, Soft, non-tender, No masses, hepatosplenomegaly and No lymphadenopathy EXTREMITIES: Deferred WOUND: clean, dry and intact, dressing currently covering incisions Doppler radial signal present. ASSESSMENT AND PLAN: Assessment/Plan This is a 53 year old male s/p Exploration of LUE, repair of L radial artery, re-implation of L ulnar artery, LUE fasciotomy and carpal tunnel release -Plan extubation today -once extubated will start diet -trend CPK until it begins decreasing -PO pain meds once extubated -prn lopressor for BP control Assessment and plan discussed with attending: Dr. Guo I saw and evaluated the patient. Discussed with the resident and agree with resident's findings and plan as documented in the resident's note. SIGNATURE: Todd Lugo MD PATIENT NAME: Irene Nieto DATE: December 25, 2018 TIME: 6:21 PM Pager: [phone] Previous Version Cristo Cornejo, RN, RN 12/25/2018 6:30 PM Signed Assist with cough and deep breath. Hr at 130's. Dr. Mcdonald around aware of temp. Assist of 2 people to up in chair. Tolerated ambulation well. Bnonie Guo MD 12/30/2018 6:04 PM Signed Vascular Progress Note SERVICE DATE: 12/26/2018 Vascular AND Thoracic Surgery Service Pager: For questions or concerns Mon-Fri 6a-5p please page [phone]. After 5pm and on Weekends and Holidays, please page [phone] if in ICU or [phone] if on RNF. Subjective SUBJECTIVE: Pt appears unchanged overnight. Tolerating diet, up to chair, pain controled. Has very minor motion of the first digit, no sensation. Denies N/V/CP/SOB Diet: DIET REGULAR Objective OBJECTIVE: Vitals: BP 156/77 Pulse 106 Temp (Src) 99.9 (Skin) Resp 12 Ht 5' 8 (1.73m) Wt 233 lb 14.5 oz (106.1kg) SpO2 98% BMI 35.57 kg/(m2). O2 Therapy: Room Air, Liters: 2 Temp (24hrs), Av.8 ?C (100.1 ?F), Min:30.2 ?C (86.4 ?F), Max:38.7 ?C (101.7 ?F) O2 Therapy: Room Air IANDO: Date 12/25/18 07 - 12/26/18 0659 12/26/18 07 - 12/27/18 0659 Shift 3008-9508 1370-1306 4566-9423 24 Hour Total 6874-0337 3510-6965 5950-0388 24 Hour Total INTAKE PO 897 937 3020 PO 121 157 6156 IV 714.6 1303 1777 3794.6 NS 0.9% 570 1100 1600 3270 Heparin IV 58 138 177 373 Propofol IV 86.6 65 151.6 Shift Total 714.6 1863 2377 4954.6 OUTPUT Urine 950 598 600 6674 Output ( External Collection Device 12/25/18 0100 Assessment) 950 197 845 3571 Tubes 30 30 Output ([REMOVED] GI Feed 12/25/18 0210 Assessment Gastric Mouth 12/25/18 1050) 30 30 Shift Total 980 339 342 5877 Weight (kg) 106.1 106.1 106.1 106.1 106.1 106.1 106.1 106.1 MEDICATIONS Current Facility-Administered Medications Medication Dose Route Frequency - potassium chloride 80-120 mEq oral liquid 80-120 mEq ORAL/FEEDING TUBE PRN - potassium chloride iv piggyback 20 mEq/100 mL 20 mEq INTRAVENOUS PRN - magnesium sulfate in water 2 g in sterile water 50 ml 2 g INTRAVENOUS PRN - sodium phosphate 45 mmol in NaCl 0.9% 250 mL 45 mmol INTRAVENOUS PRN - calcium gluconate 4 g in NaCl 0.9% 250 mL 4 g INTRAVENOUS PRN - ondansetron 4 mg tab(s) (ZOFRAN) 4 mg ORAL q 6 H PRN Or - ondansetron (PF) 4 mg injection (ZOFRAN) 4 mg INTRAVENOUS q 6 H PRN - heparin iv infusion (STANDARD NOMOGRAM) 25,000 units in NaCl 0.45% 250 mL PREMIX 0-3,000 Units/hr INTRAVENOUS CONTINUOUS And - heparin RATE CHANGE bolus 1,000-10,000 Units for subtherapeutic aptt results 1,000-10,000 Units INTRAVENOUS PRN - NaCl 0.9% iv infusion 150 mL/hr INTRAVENOUS CONTINUOUS - Chlorhexidine Gluconate 0.12 % 15 mL (PERIDEX) 15 mL ORAL q 12 H - fentaNYL 50 mcg/mL 25-50 mcg injection (SUBLIMAZE) 25-50 mcg INTRAVENOUS q 2 H PRN - hydrALAZINE 10 mg injection (APRESOLINE) 10 mg INTRAVENOUS q 4 H PRN - HYDROmorphone 1 mg injection (DILAUDID) 1 mg INTRAVENOUS q 2 H PRN - famotidine 20 mg tab(s) (PEPCID) 20 mg ORAL BID - metoprolol 5 mg injection (LOPRESSOR) 5 mg INTRAVENOUS q 6 H PRN - oxyCODONE-acetaminophen 5-325 mg 1-2 tablet (PERCOCET) 1-2 tablet ORAL q 4 H PRN - gabapentin 200 mg cap(s) (NEURONTIN) 200 mg ORAL q 12 H Labs: Recent Labs 12/25/18 0640 12/25/18 0100 NA 138 138 K 4.1 4.4 CHLOR 106 106 CO2 26 22 BUN 10 12 CREAT 0.81 0.78 GLUC 118* 141* ANION 10 14 CA 7.9* 7.9* WBC 8.87 13.42* HB 11.1* 12.3* HCT 34.8* 38.4* PLT 162 216 LACT 1.1 -- INR -- 1.01 PH 7.360 -- PCO2 47.1* -- PO2 132.0* -- BE 0.7 -- Recent Labs 12/25/18 0640 PH 7.360 PCO2 47.1* PO2 132.0* BE 0.7 Exam: GENERAL: Alert, no distress, cooperative SKIN: Skin color, texture, turgor normal. No rashes or lesions. LUNGS: Unlabored breathing on O2 Therapy: Room Air on Liters: 2 sating at SpO2: 98 % CARDIAC: rate and rhythm as above, ABDOMEN: Benign, Soft, non-tender, No masses, hepatosplenomegaly and No lymphadenopathy EXTREMITIES: Abnormal findings: LUE no sensation, easily palpable radial pulse, minor motor of first digit WOUND: clean, dry and intact, per ortho dressing to be changed today possibly ASSESSMENT AND PLAN: Assessment/Plan This is a 53 year old male s/p Exploration of LUE, repair of L radial artery, re-implation of L ulnar artery, LUE fasciotomy and carpal tunnel release ? -reg diet -change dressing today -trend CPK until it begins decreasing -PO pain meds -prn lopressor for BP control ? Assessment and plan discussed with attending: Dr. Guo ? ? I saw and evaluated the patient. Discussed with the resident and agree with resident's findings and plan as documented in the resident's note. SIGNATURE: Todd Lugo MD PATIENT NAME: Irene Nieto DATE: December 26, 2018 TIME: 6:05 AM Pager: [phone] Previous Version Georgi Espinoza MD 12/26/2018 8:23 AM Addendum I evaluated the patient and personally participated in the sims components. I agree with the resident's findings and plan with the following revisions and/or additions: Active index finger motion! Still no sensation. Plan dressing change, I and D possible closure in OR tomorrow. Signature: Georgi Espinoza MD Service Date: 12/26/2018 Service Time: 8:21 AM Orthopaedic INPATIENT PROGRESS NOTE ASSESSMENT: 53yo M POD#2 s/p L radial and ulnar artery repairs, L forearm volar fasciotomy, L CTR ? PLAN: - PT/OT: Non Weight Bearing left upper - DVT Prophylaxis: Heparing gtt - Appreciate ICU recommendations - Vascular following - Post-op Abx: Post-op Ancef: complete - Dressing: Dry dressing, Long posterior splint - Plan for repeat IANDD and attempted delayed closure tomorrow 12/27/18. - NPO midnight INTERVAL HPI: No acute events overnight. Pain controlled. Continues to have no feeling in his hand/digits. States that he is currently able to move his index finger MEDICATIONS: Current Facility-Administered Medications Medication Dose Route Frequency - potassium chloride 80-120 mEq oral liquid 80-120 mEq ORAL/FEEDING TUBE PRN - potassium chloride iv piggyback 20 mEq/100 mL 20 mEq INTRAVENOUS PRN - magnesium sulfate in water 2 g in sterile water 50 ml 2 g INTRAVENOUS PRN - sodium phosphate 45 mmol in NaCl 0.9% 250 mL 45 mmol INTRAVENOUS PRN - calcium gluconate 4 g in NaCl 0.9% 250 mL 4 g INTRAVENOUS PRN - ondansetron 4 mg tab(s) (ZOFRAN) 4 mg ORAL q 6 H PRN Or - ondansetron (PF) 4 mg injection (ZOFRAN) 4 mg INTRAVENOUS q 6 H PRN - heparin iv infusion (STANDARD NOMOGRAM) 25,000 units in NaCl 0.45% 250 mL PREMIX 0-3,000 Units/hr INTRAVENOUS CONTINUOUS And - heparin RATE CHANGE bolus 1,000-10,000 Units for subtherapeutic aptt results 1,000-10,000 Units INTRAVENOUS PRN - NaCl 0.9% iv infusion 150 mL/hr INTRAVENOUS CONTINUOUS - Chlorhexidine Gluconate 0.12 % 15 mL (PERIDEX) 15 mL ORAL q 12 H - fentaNYL 50 mcg/mL 25-50 mcg injection (SUBLIMAZE) 25-50 mcg INTRAVENOUS q 2 H PRN - hydrALAZINE 10 mg injection (APRESOLINE) 10 mg INTRAVENOUS q 4 H PRN - HYDROmorphone 1 mg injection (DILAUDID) 1 mg INTRAVENOUS q 2 H PRN - famotidine 20 mg tab(s) (PEPCID) 20 mg ORAL BID - metoprolol 5 mg injection (LOPRESSOR) 5 mg INTRAVENOUS q 6 H PRN - oxyCODONE-acetaminophen 5-325 mg 1-2 tablet (PERCOCET) 1-2 tablet ORAL q 4 H PRN - gabapentin 200 mg cap(s) (NEURONTIN) 200 mg ORAL q 12 H PHYSICAL EXAM: BP 156/77 Pulse 106 Temp 37.7 ?C (99.9 ?F) Resp 12 Ht 172.7 cm (5' 8) Wt 106.1 kg (233 lb 14.5 oz) SpO2 98% BMI 35.57 kg/m? Body mass index is 35.57 kg/m?. Exam: General: NAD, aox3 Extremities: Left Upper Extremity: Dressing clean, dry and intact. Denies sensation to light touch all 5 digits and m/r/u Unable to flex/extend thumb, middle, ring, and small finger +AROM index flex/extension Radial pulse palpable. Compartments soft, compressible. Passive ROM of finger present DATA: CBC: Recent Labs 12/25/18 0640 WBC 8.87 RBC 4.14* HB 11.1* HCT 34.8* PLT 162 MCV 84.1 MCH 26.8 MPV 9.3 RDW 14.6* BMP: Recent Labs 12/25/18 0640 NA 138 K 4.1 CHLOR 106 CO2 26 BUN 10 CREAT 0.81 GLUC 118* IMAGING: N/A SIGNATURE: Bret Paniagua MD PAGER: [phone] DATE of SERVICE: 12/26/2018 TIME of SERVICE: 6:05 AM Previous Version Livan Funez MD 12/26/2018 1:13 PM Signed MICU - PROGRESS NOTE SERVICE DATE: December 26, 2018 Admission Date: 12/24/2018 AGE: [age] year old LOS: 1 days Subjective Extubated without difficulty yesterday. No acute events overnight. deines dyspnea/cough/phlegm. Some movement in left index finger. Objective PROBLEMS: ACTIVE PROBLEM LIST Other and Unspecified Hyperlipidemia Essential hypertension, benign Degeneration of Intervertebral Disc, Site Unspecified Lumbago Tendonitis of Ankle Dilcia (Obstructive Sleep Apnea) Rhinitis Obesity, Class I, Bmi 30-34.9 Injury of Radial Artery At Forearm Level, Left, Initial Encounter Limb Ischemia PAST MEDICAL HISTORY Diagnosis Date - Essential hypertension, benign - Injury of brachial artery, initial encounter 12/24/2018 - Lumbago - Obstructive sleep apnea PAST SURGICAL HISTORY Procedure Laterality Date - PAST SURGICAL HISTORY OF left knee Social History Socioeconomic History Marital status: Spouse name: Not on file Number of children: Not on file Years of education: Not on file Highest education level: Not on file Social Needs Financial resource strain: Not on file Food insecurity - worry: Not on file Food insecurity - inability: Not on file Transportation needs - medical: Not on file Transportation needs - non-medical: Not on file Occupational History Not on file Tobacco Use Smoking status: Never Smoker Smokeless tobacco: Never Used Substance and Sexual Activity Alcohol use: No Drug use: No Sexual activity: Not on file Other Topics Concerns: Not on file Social History Narrative Not on file VITAL SIGNS (last 24hrs min/max): Temp Av.9 ?C (100.2 ?F) Min: 30.2 ?C (86.4 ?F) Max: 38.7 ?C (101.7 ?F) Pulse Av.2 Min: 98 Max: 138 Arterial BP 1 Min: 121/67 Max: 186/84 Cuff No data recorded Pain Level: 6 Vital signs reviewed. BP 156/77 Pulse 107 Temp (Src) 99.5 (Temporal) Resp 18 Ht 5' 8 (1.73m) Wt 233 lb 14.5 oz (106.1kg) SpO2 97% BMI 35.57 kg/(m2). O2 Therapy: Room Air Temp (24hrs), Av.9 ?C (100.2 ?F), Min:30.2 ?C (86.4 ?F), Max:38.7 ?C (101.7 ?F) NET FLUID BALANCE Intake/Output Summary (Last 24 hours) at 12/26/2018 1304 Last data filed at 12/26/2018 1200 Gross per 24 hour Intake 5600 ml Output 2100 ml Net 3500 ml MEDICATIONS Current Facility-Administered Medications Medication Dose Route Frequency - potassium chloride 80-120 mEq oral liquid 80-120 mEq ORAL/FEEDING TUBE PRN - potassium chloride iv piggyback 20 mEq/100 mL 20 mEq INTRAVENOUS PRN - magnesium sulfate in water 2 g in sterile water 50 ml 2 g INTRAVENOUS PRN - sodium phosphate 45 mmol in NaCl 0.9% 250 mL 45 mmol INTRAVENOUS PRN - calcium gluconate 4 g in NaCl 0.9% 250 mL 4 g INTRAVENOUS PRN - ondansetron 4 mg tab(s) (ZOFRAN) 4 mg ORAL q 6 H PRN Or - ondansetron (PF) 4 mg injection (ZOFRAN) 4 mg INTRAVENOUS q 6 H PRN - heparin iv infusion (STANDARD NOMOGRAM) 25,000 units in NaCl 0.45% 250 mL PREMIX 0-3,000 Units/hr INTRAVENOUS CONTINUOUS And - heparin RATE CHANGE bolus 1,000-10,000 Units for subtherapeutic aptt results 1,000-10,000 Units INTRAVENOUS PRN - NaCl 0.9% iv infusion 150 mL/hr INTRAVENOUS CONTINUOUS - Chlorhexidine Gluconate 0.12 % 15 mL (PERIDEX) 15 mL ORAL q 12 H - hydrALAZINE 10 mg injection (APRESOLINE) 10 mg INTRAVENOUS q 4 H PRN - HYDROmorphone 1 mg injection (DILAUDID) 1 mg INTRAVENOUS q 2 H PRN - famotidine 20 mg tab(s) (PEPCID) 20 mg ORAL BID - metoprolol 5 mg injection (LOPRESSOR) 5 mg INTRAVENOUS q 6 H PRN - oxyCODONE-acetaminophen 5-325 mg 1-2 tablet (PERCOCET) 1-2 tablet ORAL q 4 H PRN - gabapentin 200 mg cap(s) (NEURONTIN) 200 mg ORAL q 12 H Lines, Drains, and Airways Line Peripheral Right Hand 20 Gauge -- days Arterial Line 12/24/182214 Arterial Line Right Radial 1 day Peripheral 12/24/182149 Right Arm 16 Gauge 1 day Drain External Collection Device 12/25/18 0100 Assessment 1 day PHYSICAL EXAM PERFORMED: General: conversational Cardiovascular: Regular rhythm Respiratory: Clear to auscultation Abdomen: Soft and Nontender Extremities: Edema- No, left arm in bandage dressing Neurologic: Awake, oriented, Alert, Follows commands and Moving all extremities Respiratory/Nursing Documentation: O2 Therapy: Room Air (12/26/18 1000) Invasive Ventilator Mode: Pressure Regulated Volume Control (12/25/18 0809) Set Ventilator Respiratory Rate (BPM): 12 (12/25/18 0809) Total Respiratory Rate (BPM): 12 (12/25/18 0809) Tidal Volume Set (mL): 520 (12/25/18 0809) Exhaled Tidal Volume (mL): 519 (12/25/18 0809) Minute Volume (L): 6.5 (12/25/18 0809) Peak Inspiratory Pressure (cm H2O): 22 (12/25/18 0809) PEEP/CPAP (cm H2O): 5 (12/25/18 0809) HEMODYNAMIC DATA: Reviewed NUTRITION: Enteral Feeds: Yes PO diet DATA: Diagnostic tests reviewed for today's visit, films/specimens were personally reviewed by me: Most recent labs and imaging results. LABS: Recent Labs 12/26/18 0620 12/25/18 0100 CK 13,544* < > 2,381* WBC 12.20* < > 13.42* RBC 3.80* < > 4.51* HB 10.1* < > 12.3* HCT 32.4* < > 38.4* MCV 85.3 < > 85.1 PLT 161 < > 216 GLUC 120* < > 141* BUN 12 < > 12 CREAT 0.79 < > 0.78 NA 138 < > 138 K 4.2 < > 4.4 CHLOR 106 < > 106 CO2 24 < > 22 CA 8.2* < > 7.9* PTSEC -- -- 10.5 APTT 77.0* < > 32.9* INR -- -- 1.01 < > = values in this interval not displayed. ABG: Recent Labs 12/26/18 0620 12/25/18 0640 PH 7.388 7.360 PO2 72.1* 132.0* PCO2 41.7 47.1* Assessment/Plan IMPRESSION: ? Anticipated post op resp insufficiency: resolved ? Difficult airway during the procedure ? S/p??Repair of L?Radial?Artery ? Hypertension ? H/o mild dilcia on REM sleep per sleep study in 2010, not on home CPAP ? Obesity ? PLAN: ? IS/increase ambulation ? To OR tomorrow for IANDD and closure ? Heparin gtt ? Pain control ? BP control ? ICu monitoring ? Pulm/CC s/o. ? Will be available for any perioperative needs. Please call with questions/concerns. SIGNATURE: Livan Funez MD PATIENT NAME: Irene Nieto DATE: December 26, 2018 TIME: 1:04 PM Carlos Maki MD, MD 12/27/2018 9:31 AM Signed ORTHOPAEDIC SURGERY DAILY PROGRESS NOTE Patient Name: Irene Nieto Date of Evaluation: 12/27/2018 Admission Date: 12/24/2018 Time of Evaluation: 7:35 AM ASSESSMENT: 53yo M POD#3 s/p L radial and ulnar artery repairs, L forearm volar fasciotomy, L CTR ? PLAN: - PT/OT:??Non Weight Bearing?left upper - DVT Prophylaxis:?Heparing gtt - Appreciate ICU recommendations - Vascular following - Post-op Abx:?Post-op Ancef: complete - Dressing:?Dry dressing, Long posterior splint - Plan for repeat IANDD and attempted delayed closure today, 12/27/18. INTERVAL HPI: Patient monitored, no new events overnight. Pt reports he is doing okay, a little groggy. Ready for surgery today. Has not eaten since last night. Denies nausea/vomitting. OBJECTIVE: BP 172/85 Pulse 102 Temp 37.8 ?C (100 ?F) Resp 17 Ht 172.7 cm (5' 8) Wt 106.1 kg (233 lb 14.5 oz) SpO2 100% BMI 35.57 kg/m? Intake/Output Summary (Last 24 hours) No intake/output data recorded. Exam: General: NAD, AAOx3 Extremities: Evaluation of LUE - Long arm splint intact. No sensation in R/U/M dermatomes. Motor intact with index finger flexion and extension only. Palpable radial pulse. Brisk capillary refill all digits. Compartments soft, compressible. Tolerates passive stretch of digits. Labs: BMP: Sodium 136 12/27/2018 Potassium 3.8 12/27/2018 Chloride 106 12/27/2018 CO2 25 12/27/2018 BUN 10 12/27/2018 Creatinine 0.66 12/27/2018 Glucose 130 12/27/2018 CBC: WBC 10.26 12/27/2018 HGB 8.9 12/27/2018 Hematocrit 28.0 12/27/2018 Platelet Count 133 12/27/2018 COAGS: APTT 55.5 12/27/2018 INR 1.01 12/25/2018 Carlos Maki MD Resident, Orthopaedic Surgery Pager: [phone] 12/27/2018 7:35 AM Matt Alberto MD 12/27/2018 7:39 AM Signed ANESTHESIOLOGY DAY OF SURGERY NOTE SERVICE DATE: 12/27/2018 SERVICE TIME: 7:38 AM : 1965 Procedure(s) (LRB): IANDD LEFT forearm, possible closure, possible placement wound vac (Left) Surgeon(s): Georgi Espinoza Estimated body mass index is 35.57 kg/m? as calculated from the following: Height as of this encounter: 172.7 cm (5' 8). Weight as of this encounter: 106.1 kg (233 lb 14.5 oz). Most recent hematocrit and potassium results: Hematocrit 28.0 12/27/2018 Potassium 3.8 12/27/2018 ANES DOS/PREOP NOTE: Vitals: 12/27/18 0516 12/27/18 0600 12/27/18 0630 12/27/18 0700 BP: 172/85 Pulse: 120 101 102 Resp: 17 17 Temp: 37.8 ?C (100 ?F) 37.3 ?C (99.1 ?F) TempSrc: SpO2: 100% 100% Weight: Height: ACTIVE PROBLEM LIST Other and Unspecified Hyperlipidemia Essential hypertension, benign Degeneration of Intervertebral Disc, Site Unspecified Lumbago Tendonitis of Ankle Dilcia (Obstructive Sleep Apnea) Rhinitis Obesity, Class I, Bmi 30-34.9 Injury of Radial Artery At Forearm Level, Left, Initial Encounter Limb Ischemia PAST MEDICAL HISTORY Diagnosis Date - Essential hypertension, benign - Injury of brachial artery, initial encounter 12/24/2018 - Lumbago - Obstructive sleep apnea PAST SURGICAL HISTORY Procedure Laterality Date - PAST SURGICAL HISTORY OF left knee No family history on file. Social History: Social History Tobacco Use - Smoking status: Never Smoker - Smokeless tobacco: Never Used Substance Use Topics - Alcohol use: No - Drug use: No No current facility-administered medications on file prior to encounter. Current Outpatient Medications on File Prior to Encounter: omeprazole (PRILOSEC) 20 mg capsule Take 20 mg by mouth once daily. armodafinil (NUVIGIL) 150 mg tab Take 75 mg by mouth once daily. For shift work disorder Current Facility-Administered Medications Medication Dose Route Frequency Provider Last Rate Last Dose - senna-docusate 8.6-50 mg 1 tablet (SENNA-S) 1 tablet ORAL BID Souleymane Gorman) Zandrain 1 tablet at 12/26/18 175 - polyethylene glycol 3350 17 g packet (MIRALAX, GLYCOLAX) 17 g ORAL DAILY PRN Souleymane Gorman) Ruhlin 17 g at 12/26/18 175 - bisacodyl 10 mg suppository (DULCOLAX) 10 mg RECTAL DAILY PRN Souleymane España (Pa) - acetaminophen 975 mg tab(s) (TYLENOL) 975 mg ORAL q 6 H Ernesto Yanoschik 975 mg at 12/27/18 05 - oxyCODONE IR 5-10 mg tab(s) (ROXICODONE) 5-10 mg ORAL q 4 H PRN Ernesto Hernandezoschik 10 mg at 12/27/18512 - potassium chloride 80-120 mEq oral liquid 80-120 mEq ORAL/FEEDING TUBE PRN Mil Gambino - potassium chloride iv piggyback 20 mEq/100 mL 20 mEq INTRAVENOUS PRN Mil Gambino - magnesium sulfate in water 2 g in sterile water 50 ml 2 g INTRAVENOUS PRN Mil Gambino - sodium phosphate 45 mmol in NaCl 0.9% 250 mL 45 mmol INTRAVENOUS PRN [facility] - calcium gluconate 4 g in NaCl 0.9% 250 mL 4 g [facility]TRAV[facility]OUS PRN [facility] - ondansetron 4 mg tab(s) (ZOFRAN) 4 mg ORAL q 6 H PRN Mil Gambino Or - ondansetron (PF) 4 mg injection (ZOFRAN) 4 mg INTRAVENOUS q 6 H PRN Mil Gambino - heparin iv infusion (STANDARD NOMOGRAM) 25,000 units in NaCl 0.45% 250 mL PREMIX 0-3,000 Units/hr INTRAVENOUS CONTINUOUS Mil Gambino 13 mL/hr at 12/27/18 0556 1,300 Units/hr at 12/27/1856 And - heparin RATE CHANGE bolus 1,000-10,000 Units for subtherapeutic aptt results 1,000-10,000 Units INTRAVENOUS PRN Mil Gambino - NaCl 0.9% iv infusion 100 mL/hr INTRAVENOUS CONTINUOUS Souleymane (Pa) Ruhlin 100 mL/hr at 12/27/18 0513 100 mL/hr at 12/27/18512 - Chlorhexidine Gluconate 0.12 % 15 mL (PERIDEX) 15 mL ORAL q 12 H Miguel Angel Thornton 15 mL at 12/25/182099 - hydrALAZINE 10 mg injection (APRESOLINE) 10 mg INTRAVENOUS q 4 H PRN Livan Vyas) Dee Dee 10 mg at 12/27/185 - HYDROmorphone 1 mg injection (DILAUDID) 1 mg INTRAVENOUS q 2 H PRN Todd Hieb 1 mg at 12/26/182056 - famotidine 20 mg tab(s) (PEPCID) 20 mg ORAL BID Livan Funez 20 mg at 12/26/182099 - metoprolol 5 mg injection (LOPRESSOR) 5 mg INTRAVENOUS q 6 H PRN Shayna Bullard MD 5 mg at 12/27/18515 - gabapentin 200 mg cap(s) (NEURONTIN) 200 mg ORAL q 12 H Todd Hieb 200 mg at 12/26/182056 Allergies: ALLERGIES Allergen Reactions - Sudafed [Pseudoephe* Other: See Comments Severe htn, elevated HR DOS EXAM: Adequate NPO status: Yes Anesthetic risks, benefits, alternatives, personnel and consent discussed: Yes Patient agrees to proceed: Yes Previous Anesthesia: No history of adverse event. Airway Assessment: MP 3; Neck ROM: Full ROM without neurologic symptoms; Airway Evaluation: Thick neck Symptoms of Sleep Apnea: Hypertension, Age over 50 (53 year old), Neck circumference > 15.75 inches and Male gender Dentition: Teeth intact Additional Physical Exam: Lungs: Patient health status unchanged since recent history and physical. See history and physical for exam findings. Cardiac: Patient health status unchanged since recent history and physical. See history and physical for exam findings. Additional Pertinent Findings: N/A Blood Products: Not anticipated for this procedure. Anesthetic Plan: General, Standard ASA Monitors Pain Management Plan: Parenteral or Oral ASA Class: 3 Other Medical Problems: None Chronic Beta Zaria medication administered within 24 hours: N/A I have interviewed and examined the patient. I have reviewed the medical record and/or the pre-anesthesia evaluation, pertinent labs, and test results. Significant changes in the patient's condition since the History and Physical, not otherwise documented in primary service progress notes: No This contains updated information obtained within 48 hours of Surgery/Procedure. SIGNATURE: Matt Alberto MD PATIENT NAME: Irene Nieto DATE: December 27, 2018 TIME: 7:37 AM CSN: [id number] Georgi Espinoza MD 12/28/2018 8:35 PM Signed [facility] - Operative Report IRENE NIETO : 1965 AGE: 53. SEX: M PATIENT TYPE: I HOSP SVC: [facility]CA LOCATION: [place] ATTENDING PHYSICIAN: BONNIE GUO CSN NUMBER: [id number] DATE OF SURGERY/PROCEDURE: 12/27/2018 INCISION/PROCEDURE START TIME: 8:40 AM INCISION CLOSE/PROCEDURE END TIME: 9:03 AM PREOPERATIVE DIAGNOSIS: 1. Fasciotomy wound, left forearm. 2. Status post repair, left radial and ulnar arteries. POSTOPERATIVE DIAGNOSIS: 1. Fasciotomy wound, left forearm. 2. Status post repair, left radial and ulnar arteries. SURGEON: Georgi Espinoza MD SCHEDULING CLERK: Dr. Sargent and Dr. Townsend. SURGERY/PROCEDURE: Irrigation and debridement left forearm fasciotomy wound. ANESTHESIA: General. CLINICAL NOTE: This 53-year-old gentleman had an injury to his left radial and ulnar arteries approximately 3 days ago. He underwent a repair by the vascular surgical team with successful revascularization of his arm. He had prophylactic fasciotomies performed. He has maintained good circulation in the limb. He has remained insensate. He did develop active flexion of his index finger. He was brought to the operating room today for dressing change, inspection of his wound, and assessment for further wound management. OPERATIVE FINDINGS: At the time of surgery, he had hemorrhagic blisters in the antecubital region in the area of his previous biceps tendon repair and revascularization. His fasciotomy wound was wide open. The underlying muscle was pink and healthy. There was no areas of skin necrosis. He had some serous blisters on the dorsal ulnar side of his limb. Dorsal compartment was soft. Carpal tunnel incision was well approximated. He had good palpable pulses. DESCRIPTION OF PROCEDURE: Patient was brought to the operative theater where general endotracheal anesthesia was administered. The left limb was identified with appropriate time-out. We performed an initial irrigation of the fasciotomy wound utilizing gravity fed saline. A small amount of hematoma was evacuated. The underlying musculature was pink and viable. There was no areas of necrosis. There were some hemorrhagic blisters proximally, but the proximal wound itself was well approximated and no necrotic edges. The forearm was quite swollen. The skin flaps were not mobile enough to provide any closure. After irrigating and inspecting the wound, we simply redressed it. Adaptic with bacitracin was placed over the blistering. Adaptic with a moist 4 x 4 over the fasciotomy wound itself. A compressive bulky dressing with a posterior splint was then applied. Radial and ulnar arteries were checked at completion with palpation and Doppler were remaining patent. Patient was then awakened and transferred to the recovery room in satisfactory condition, having tolerated the procedure well. He received Ancef preoperatively as antibiotic prophylaxis. We will have further supportive care. Repeat inspection of the wound in 2 to 3 days. Most likely will require skin grafting and we will coordinate going forward. Georgi Espinoza MD GAV:[id number] /[id number] Previous Version Georgi Espinoza MD 12/27/2018 9:18 AM Signed BRIEF OPERATIVE / PROCEDURE NOTE LOG ID: [id number] SURGERY/PROCEDURE DATE: 12/27/2018 INCISION/PROCEDURE START TIME: 8:40 AM INCISION CLOSE/PROCEDURE END TIME: 9:03 AM SURGEON(S)/PROCEDURALIST (S) AND SCHEDULING CLERK(S): Surgeon(s) and Role: * Georgi Espinoza - Primary Assistants: Dr Sargent, Dr Townsend. SURGERY/PROCEDURE(S): I and D, dressing change left forearm Fasciotomy wound ANESTHESIA: General FINDINGS: Expected postop swelling and some blisters. Wound edges viable. Muscle viable, no necrosis noted. Will need split thickness skin grafting for closure. Pulses remained intact by palpation and doppler at completion. ESTIMATED BLOOD LOSS: 0 ml SPECIMENS: None COMPLICATIONS: None PRE-OP/PRE-PROCEDURE DIAGNOSIS: Fasciotomy wound left forearm status post revascularization procedure POST-OP/POST-PROCEDURE DIAGNOSIS: Same SIGNATURE: Georgi Espinoza MD PATIENT NAME: Irene Nieto DATE: December 27, 2018 TIME: 9:13 AM PAGER/CONTACT #: Michael Townsend MD 12/27/2018 9:34 AM Signed 53yo M POD#3?s/p L radial and ulnar artery repairs, L forearm volar fasciotomy, L CTR POD#0 IANDD Left forearm ? PLAN: - PT/OT:??Non Weight Bearing?left upper extremity - DVT Prophylaxis:?Heparing gtt - Appreciate ICU recommendations - Vascular following - Post-op Abx:?Post-op Ancef: complete - Dressing:?Dry dressing, Long posterior splint - Plan for repeat IANDD?and possible grafting TBD MD Shayna Al MD, MD 12/27/2018 11:41 AM Attested -------- Attestation signed by Lo Solis at 12/27/2018 2:23 PM I saw and evaluated the patient. Discussed with the resident and agree with resident's findings and plan as documented in the resident's note. Pt seen in OR today. Pt with + pulses and distal signals. Grafts appear in tact and open. Pt with warm fingers, still with minimal motion. Pt will need to return to OR with ortho for STSG and further washout, TBD. Continue current mgmt. Lo Solis MD -------- Vascular Progress Note SERVICE DATE: 12/27/2018 Vascular AND Thoracic Surgery Service Pager: For questions or concerns Mon-Fri 6a-5p please page [phone]. After 5pm and on Weekends and Holidays, please page [phone] if in ICU or [phone] if on RNF. Subjective SUBJECTIVE: Pt appears unchanged overnight. Up to chair, pain controled. Has very minor motion of the first digit, no sensation. Denies N/V/CP/SOB Diet: DIET LIQUID Objective OBJECTIVE: Vitals: BP 172/85 Pulse 97 Temp (Src) 98.1 (Temporal Artery) Resp 14 Ht 5' 8 (1.73m) Wt 249 lb 9 oz (113.2kg) SpO2 95% BMI 37.95 kg/(m2). O2 Therapy: Room Air, Liters: 4 Temp (24hrs), Av.7 ?C (99.8 ?F), Min:36.7 ?C (98.1 ?F), Max:37.9 ?C (100.2 ?F) O2 Therapy: Room Air IANDO: Date 12/26/18699 - 12/27/1865812/27/18699 - 12/28/1859 Shift 8851-3670 9714-6024 5265-3839 24 Hour Total 1081-1687 1148-1901 7208-8764 24 Hour Total INTAKE PO 591 605 8104 480 480 PO 543 400 7114 480 480 IV 3316 812 5925 700 700 NS 0.9% 4724 864 4138 Heparin IV 183 183 OR Crystalloid intake (mL) 700 700 Shift Total 1740 1063 2803 1180 1180 OUTPUT Urine 400 354 628 9214 Void (ml) 400 944 237 2697 # of BMs Number of BMs 0 x 0 x Shift Total 400 385 758 2527 Weight (kg) 106.1 106.1 106.1 106.1 113.2 113.2 113.2 113.2 MEDICATIONS Current Facility-Administered Medications Medication Dose Route Frequency - ceFAZolin iv piggyback 2 g in D5W (iso-osmotic) 100 mL (ANCEF) 2 g INTRAVENOUS ONCE - senna-docusate 8.6-50 mg 1 tablet (SENNA-S) 1 tablet ORAL BID - polyethylene glycol 3350 17 g packet (MIRALAX, GLYCOLAX) 17 g ORAL DAILY PRN - bisacodyl 10 mg suppository (DULCOLAX) 10 mg RECTAL DAILY PRN - acetaminophen 975 mg tab(s) (TYLENOL) 975 mg ORAL q 6 H - oxyCODONE IR 5-10 mg tab(s) (ROXICODONE) 5-10 mg ORAL q 4 H PRN - potassium chloride 80-120 mEq oral liquid 80-120 mEq ORAL/FEEDING TUBE PRN - potassium chloride iv piggyback 20 mEq/100 mL 20 mEq INTRAVENOUS PRN - magnesium sulfate in water 2 g in sterile water 50 ml 2 g INTRAVENOUS PRN - sodium phosphate 45 mmol in NaCl 0.9% 250 mL 45 mmol INTRAVENOUS PRN - calcium gluconate 4 g in NaCl 0.9% 250 mL 4 g INTRAVENOUS PRN - ondansetron 4 mg tab(s) (ZOFRAN) 4 mg ORAL q 6 H PRN Or - ondansetron (PF) 4 mg injection (ZOFRAN) 4 mg INTRAVENOUS q 6 H PRN - heparin iv infusion (STANDARD NOMOGRAM) 25,000 units in NaCl 0.45% 250 mL PREMIX 0-3,000 Units/hr INTRAVENOUS CONTINUOUS And - heparin RATE CHANGE bolus 1,000-10,000 Units for subtherapeutic aptt results 1,000-10,000 Units INTRAVENOUS PRN - NaCl 0.9% iv infusion 100 mL/hr INTRAVENOUS CONTINUOUS - Chlorhexidine Gluconate 0.12 % 15 mL (PERIDEX) 15 mL ORAL q 12 H - hydrALAZINE 10 mg injection (APRESOLINE) 10 mg INTRAVENOUS q 4 H PRN - HYDROmorphone 1 mg injection (DILAUDID) 1 mg INTRAVENOUS q 2 H PRN - famotidine 20 mg tab(s) (PEPCID) 20 mg ORAL BID - metoprolol 5 mg injection (LOPRESSOR) 5 mg INTRAVENOUS q 6 H PRN - gabapentin 200 mg cap(s) (NEURONTIN) 200 mg ORAL q 12 H Labs: Recent Labs 12/27/18 0520 12/26/18 0620 12/25/18 0640 12/25/18 0100 NA 136 138 138 138 K 3.8 4.2 4.1 4.4 CHLOR 106 106 106 106 CO2 25 24 26 22 BUN 10 12 10 12 CREAT 0.66* 0.79 0.81 0.78 GLUC 130* 120* 118* 141* ANION 9 12 10 14 CA 8.4* 8.2* 7.9* 7.9* WBC 10.26* 12.20* 8.87 13.42* HB 8.9* 10.1* 11.1* 12.3* HCT 28.0* 32.4* 34.8* 38.4* PLT 133* 161 162 216 LACT -- -- 1.1 -- INR -- -- -- 1.01 PH -- 7.388 7.360 -- PCO2 -- 41.7 47.1* -- PO2 -- 72.1* 132.0* -- BE -- 0.1 0.7 -- Recent Labs 12/26/18 0620 12/25/18 0640 PH 7.388 7.360 PCO2 41.7 47.1* PO2 72.1* 132.0* BE 0.1 0.7 Exam: GENERAL: Alert, no distress, cooperative SKIN: Skin color, texture, turgor normal. No rashes or lesions. LUNGS: Unlabored breathing on O2 Therapy: Room Air on Liters: 2 sating at SpO2: 98 % CARDIAC: rate and rhythm as above, ABDOMEN: Benign, Soft, non-tender, No masses, hepatosplenomegaly and No lymphadenopathy EXTREMITIES: Abnormal findings: LUE no sensation, easily palpable radial pulse, minor motor of first digit WOUND: clean, dry and intact, per ortho dressing to be changed today possibly ASSESSMENT AND PLAN: Assessment/Plan This is a 53 year old male s/p Exploration of LUE, repair of L radial artery, re-implation of L ulnar artery, LUE fasciotomy and carpal tunnel release. Repeat IANDD in OR 12/27 AM. ? -reg diet after OR - IAND D with ortho: palpable pulses in OR with multiphasic doppler signals - CPK decreasing -PO pain meds -prn lopressor for BP control ? Assessment and plan discussed with attending: Dr. Solis SIGNATURE: Shayna Bullard MD PATIENT NAME: Irene Nieto DATE: December 27, 2018 TIME: 6:05 AM Pager: [phone] Matt Alberto MD 12/27/2018 4:51 PM Signed POST ANESTHESIA EVALUATION NOTE SERVICE DATE: 12/27/2018 SERVICE TIME: 4:51 PM : 1965 Vitals: 12/27/18 1300 12/27/18 1400 12/27/18 1500 12/27/18 1600 Temp: 36.6 ?C (97.9 ?F) 37.1 ?C (98.8 ?F) 37.3 ?C (99.1 ?F) 37.3 ?C (99.1 ?F) 12/27/18 1300 12/27/18 1400 12/27/18 1500 12/27/18 1600 Arterial BP 1: 135/71 154/74 162/79 165/80 BP: 12/27/18 1300 12/27/18 1400 12/27/18 1500 12/27/18 1600 Pulse: 107 97 96 100 12/27/18 1300 12/27/18 1400 12/27/18 1500 12/27/18 1600 Resp: 17 13 13 13 12/27/18 0930 12/27/18 0945 12/27/18 0955 12/27/18 1100 SpO2: 99% 91% 95% 100% Validated Vital Signs: Yes POST ANES STATUS: No apparent anesthetic complications. The patient is appropriately hydrated with stable respiratory and cardiovascular status. Patient has safe and adequate airway control. The patient has appropriate pain relief and no significant post operative nausea or vomiting. The patient has achieved baseline mental status. Intra-Operative Events: No Significant Anesthesia Events Further assessment by Anesthesia Service: None Other Remarks: SIGNATURE: Matt Alberto MD PATIENT NAME: Irene Nieto DATE: December 27, 2018 TIME: 4:51 PM PAGER/CONTACT #: [phone] Edin Rudolph MD 12/28/2018 7:17 AM Addendum ORTHOPAEDIC SURGERY POSTOP DAILY PROGRESS NOTE Patient Name: Irene Nieto Date of Evaluation: 12/28/2018 Admission Date: 12/24/2018 Time of Evaluation: 5:38 AM ASSESSMENT: 53yo M POD#4?s/p L radial and ulnar artery repairs, L forearm volar fasciotomy, L CTR POD#1 IANDD Left forearm PLAN: - PT/OT:??Non Weight Bearing?left upper extremity - DVT Prophylaxis:?Heparing gtt - Appreciate ICU recommendations - Vascular following - Post-op Abx:?Post-op Ancef: complete - Dressing:?Dry dressing, Long posterior splint - Plan for repeat IANDD?and possible grafting TBD INTERVAL HPI: Patient monitored, no new events overnight. Patient states that they are comfortable. Well Controlled pain. Denies nausea/vomitting. OBJECTIVE: BP 172/85 Pulse 109 Temp 37.9 ?C (100.2 ?F) (Temporal) Resp 15 Ht 172.7 cm (5' 8) Wt 113.2 kg (249 lb 9 oz) SpO2 92% BMI 37.95 kg/m? Intake/Output Summary (Last 24 hours) No intake/output data recorded. Exam: General: NAD, AAOx3 Extremities: Left Upper Extremity: Long posterior arm splint intact Dressing clean, dry and intact. Motor with index, middle flexion and extension only No sensation M/R/U/Ax Radial pulse palpable. Compartments soft, compressible. Tolerates passive stretch of digits. Labs: BMP: Sodium 136 12/27/2018 Potassium 3.8 12/27/2018 Chloride 106 12/27/2018 CO2 25 12/27/2018 BUN 10 12/27/2018 Creatinine 0.66 12/27/2018 Glucose 130 12/27/2018 CBC: WBC 10.26 12/27/2018 HGB 8.9 12/27/2018 Hematocrit 28.0 12/27/2018 Platelet Count 133 12/27/2018 COAGS: APTT 55.5 12/27/2018 INR 1.01 12/25/2018 SED RATE/CRP: No results found for this basename: wsr:*,crp:* Imaging: no new images Edin Rudolph MD Resident, Orthopaedic Surgery Pager #: [phone] 12/28/2018 5:38 AM Please page [phone] from 5p-6a and on weekends for any issues. Previous Version Shayna Bullard MDMD 12/28/2018 9:34 AM Attested -------- Attestation signed by Lo Solis at 12/28/2018 2:26 PM I saw and evaluated the patient. Discussed with the resident and agree with resident's findings and plan as documented in the resident's note. Pt sleeping. Slightly improved hand function. Vascular in tact. Further plans for washout/grafting per ortho. Lo Solis MD -------- Vascular Surgery Progress Note SERVICE DATE: 12/28/2018 Vascular AND Thoracic Surgery Service Pager: For questions or concerns Mon-Fri 6a-5p please page [phone]. After 5pm and on Weekends and Holidays, please page [phone] if in ICU or [phone] if on RNF. Subjective SUBJECTIVE: Ppt able to slightly move middle three fingers. Pt able to tell when hand is being touched. Denies N/V/CP/SOB Diet: DIET REGULAR Objective OBJECTIVE: Vitals: BP 172/85 Pulse 108 Temp (Src) 100.2 (Temporal) Resp 20 Ht 5' 8 (1.73m) Wt 251 lb 5.2 oz (114.0kg) SpO2 92% BMI 38.22 kg/(m2). Temp (24hrs), Av.3 ?C (99.1 ?F), Min:36.4 ?C (97.5 ?F), Max:38 ?C (100.4 ?F) O2 Therapy: Room Air IANDO: Date 12/27/18699 - 12/28/1865812/28/18699 - 12/29/18658 Shift 8158-6628 9073-0126 3547-3536 24 Hour Total 2807-5410 7845-6620 1601-2762 24 Hour Total INTAKE PO 720 240 960 PO 720 240 960 IV 700 256 956 Cefazolin IV 100 100 Heparin IV 156 156 OR Crystalloid intake (mL) 700 700 Shift Total 5610 500 2678 OUTPUT Urine 655 767 5408 750 750 Void (ml) 169 527 6946 750 750 Shift Total 157 933 [id number] Weight (kg) 113.2 113.2 113.2 113.2 114 114 114 114 MEDICATIONS Current Facility-Administered Medications Medication Dose Route Frequency - sodium chloride 0.65 % 2 [place] (AYR, OCEAN) 2 [place] EACH NOSTRIL PRN - senna-docusate 8.6-50 mg 1 tablet (SENNA-S) 1 tablet ORAL BID - polyethylene glycol 3350 17 g packet (MIRALAX, GLYCOLAX) 17 g ORAL DAILY PRN - bisacodyl 10 mg suppository (DULCOLAX) 10 mg RECTAL DAILY PRN - acetaminophen 975 mg tab(s) (TYLENOL) 975 mg ORAL q 6 H - oxyCODONE IR 5-10 mg tab(s) (ROXICODONE) 5-10 mg ORAL q 4 H PRN - potassium chloride 80-120 mEq oral liquid 80-120 mEq ORAL/FEEDING TUBE PRN - potassium chloride iv piggyback 20 mEq/100 mL 20 mEq INTRAVENOUS PRN - magnesium sulfate in water 2 g in sterile water 50 ml 2 g INTRAVENOUS PRN - sodium phosphate 45 mmol in NaCl 0.9% 250 mL 45 mmol INTRAVENOUS PRN - calcium gluconate 4 g in NaCl 0.9% 250 mL 4 g INTRAVENOUS PRN - ondansetron 4 mg tab(s) (ZOFRAN) 4 mg ORAL q 6 H PRN Or - ondansetron (PF) 4 mg injection (ZOFRAN) 4 mg INTRAVENOUS q 6 H PRN - heparin iv infusion (STANDARD NOMOGRAM) 25,000 units in NaCl 0.45% 250 mL PREMIX 0-3,000 Units/hr INTRAVENOUS CONTINUOUS And - heparin RATE CHANGE bolus 1,000-10,000 Units for subtherapeutic aptt results 1,000-10,000 Units INTRAVENOUS PRN - NaCl 0.9% iv infusion 100 mL/hr INTRAVENOUS CONTINUOUS - Chlorhexidine Gluconate 0.12 % 15 mL (PERIDEX) 15 mL ORAL q 12 H - hydrALAZINE 10 mg injection (APRESOLINE) 10 mg INTRAVENOUS q 4 H PRN - HYDROmorphone 1 mg injection (DILAUDID) 1 mg INTRAVENOUS q 2 H PRN - famotidine 20 mg tab(s) (PEPCID) 20 mg ORAL BID (more content not included)... Normal [facility] Vital Signs Date Time Vital Sign Value Performing Clinician Facility 02-03-2023 20:11-0400 Body height 172.72 cm [facility] 02-03-2023 20:11-0400 Body mass index (BMI) [Ratio] 32.3 kg/m2 [facility] 02-03-2023 20:11-0400 Body temperature 97.4 [degF] [facility] 02-03-2023 20:11-0400 Body weight 96.3 kg [facility] 02-03-2023 20:11-0400 Diastolic blood pressure 90 mm[Hg] [facility] 02-03-2023 20:11-0400 Heart rate 90 /min [facility] 02-03-2023 20:11-0400 Respiratory rate 18 /min [facility] 02-03-2023 20:11-0400 SaO2% (BldA) [Mass fraction] 95 % [facility] 02-03-2023 20:11-0400 Systolic blood pressure 147 mm[Hg] [facility] 07-14-2022 11:26-0500 Diastolic blood pressure 76 mm[Hg] Dr. Luis Enrique Napier Work Phone: [facility] 07-14-2022 11:26-0500 Heart rate 111 /min Dr. Luis Enrique Napier Work Phone: [facility] 07-14-2022 11:26-0500 Respiratory rate 41 /min Dr. Luis Enrique Napier Work Phone: [facility] 07-14-2022 11:26-0500 SaO2% (BldA) [Mass fraction] 94 % Dr. Luis Enrique Napier Work Phone: [facility] 07-14-2022 11:26-0500 Systolic blood pressure 109 mm[Hg] Dr. Luis Enrique Napier Work Phone: [facility] 07-14-2022 09:06-0500 Body height 162.[address] Luis Enrique Napier Work Phone: [facility] 07-14-2022 09:06-0500 Body mass index (BMI) [Ratio] 34.7 kg/m2 Dr. Luis Enrique Napier Work Phone: [facility] 07-14-2022 09:06-0500 Body temperature 96.2 [degF] Dr. Luis Enrique Napier Work Phone: [facility] 07-14-2022 09:06-0500 Body weight 91.[address] Luis Enrique Napier Work Phone: [facility] 07-12-2022 13:34-0500 Body temperature 97.4 [degF] Dr. Luis Enrique Napier Work Phone: [facility] 07-12-2022 13:34-0500 Diastolic blood pressure 98 mm[Hg] Dr. Luis Enrique Napier Work Phone: [facility] 07-12-2022 13:34-0500 Heart rate 87 /min Dr. Luis Enrique Napier Work Phone: [facility] 07-12-2022 13:34-0500 Respiratory rate 18 /min Dr. Luis Enrique Napier Work Phone: [facility] 07-12-2022 13:34-0500 SaO2% (BldA) [Mass fraction] 96 % Dr. Luis Enrique Napier Work Phone: [facility] 07-12-2022 13:34-0500 Systolic blood pressure 148 mm[Hg] Dr. Luis Enrique Napier Work Phone: [facility] 04-17-2022 09:36-0400 Body height 172.7 cm Huy Holm Jr., MD Work Phone: [facility] 04-17-2022 09:36-0400 Body weight 97.52 kg Huy Holm Jr., MD Work Phone: [facility] 04-17-2022 09:36-0400 Respiratory rate 18 /min Huy Holm Jr., MD Work Phone: [facility] 02-01-2022 10:04-0400 Body height 172.[address] Luis Enrique Napier Work Phone: [facility] Work Phone: 02-01-2022 10:04-0400 Body mass index (BMI) [Ratio] 29.9 kg/m2 Dr. Luis Enrique Napier Work Phone: [facility] Work Phone: 02-01-2022 10:04-0400 Body weight 89.[address] Luis Enrique Napier Work Phone: [facility] Work Phone: 02-01-2022 10:04-0400 Diastolic blood pressure 80 mm[Hg] Dr. Luis Enrique Napier Work Phone: [facility] Work Phone: 02-01-2022 10:04-0400 Heart rate 76 /min Dr. Luis Enrique Napier Work Phone: [facility] Work Phone: 02-01-2022 10:04-0400 Respiratory rate 18 /min Dr. Luis Enrique Napier Work Phone: [facility] Work Phone: 02-01-2022 10:04-0400 SaO2% (BldA) [Mass fraction] 97 % Dr. Luis Enrique Napier Work Phone: [facility] Work Phone: 02-01-2022 10:04-0400 Systolic blood pressure 125 mm[Hg] Dr. Luis Enrique Napier Work Phone: [facility] Work Phone: 11-02-2021 09:34-0400 Body height 172.[address] Luis Enrique Napier Work Phone: [facility] Work Phone: 11-02-2021 09:34-0400 Body mass index (BMI) [Ratio] 30.5 kg/m2 Dr. Luis Enrique Napier Work Phone: [facility] Work Phone: 11-02-2021 09:34-0400 Body weight 91.[address] Luis Enrique Napier Work Phone: [facility] Work Phone: 11-02-2021 09:34-0400 Diastolic blood pressure 66 mm[Hg] Dr. Luis Enrique Napier Work Phone: [facility] Work Phone: 11-02-2021 09:34-0400 Heart rate 70 /min Dr. Luis Enrique Napier Work Phone: [facility] Work Phone: 11-02-2021 09:34-0400 Respiratory rate 16 /min Dr. Luis Enrique Napier Work Phone: [facility] Work Phone: 11-02-2021 09:34-0400 Systolic blood pressure 117 mm[Hg] Dr. Luis Enrique Napier Work Phone: [facility] Work Phone: 08-03-2021 09:48-0500 Body height 172.[address] Luis Enrique Napier Work Phone: [facility] Work Phone: 08-03-2021 09:48-0500 Body mass index (BMI) [Ratio] 33.6 kg/m2 Dr. Luis Enrique Napier Work Phone: [facility] Work Phone: 08-03-2021 09:48-0500 Body weight 100.[address] Luis Enrique Napier Work Phone: [facility] Work Phone: 08-03-2021 09:48-0500 Diastolic blood pressure 88 mm[Hg] Dr. Luis Enrique Napier Work Phone: [facility] Work Phone: 08-03-2021 09:48-0500 Heart rate 80 /min Dr. Luis Enrique Napier Work Phone: [facility] Work Phone: 08-03-2021 09:48-0500 Respiratory rate 16 /min Dr. Luis Enrique Napier Work Phone: [facility] Work Phone: 08-03-2021 09:48-0500 Systolic blood pressure 130 mm[Hg] Dr. Luis Enrique Napier Work Phone: [facility] Work Phone: 12-26-2018 08:30-0400 Body temperature 37.0 Deg [facility] Comment on above: Performed By: #### CBCD1 #### [place] [address] 12-25-2018 08:46-0400 Body temperature 37.0 Deg [facility] Comment on above: Performed By: #### ABG #### [facility] [address] [place] [address] Encounters Encounter Date Encounter Type Care Provider Facility Start: 10-19-2024 End: 10-19-[address] Luis Enrique Napier MD Work Phone: [facility] Work Phone: Start: 10-19-2024 End: 10-19-[address] Carlos Kirby DPM -MRI - [facility] Work Phone: Start: 10-19-2024 End: 10-19-2024 ambulatory Carlos Kirby Facility:[facility] Start: 10-08-2024 End: 10-08-[address] Luis Enrique Napier MD Work Phone: [facility] Work Phone: Start: 10-08-2024 End: 10-08-[address] Carlos Kirby DPM -Physical Therapy Work Phone: Start: 10-08-[address] Reginald Kirby DPM -Physical Therapy Work Phone: Start: 08-28-2024 End: 08-28-[address] Carlos Kirby DPM -Cat Scan, [facility] Work Phone: Start: 08-28-2024 End: 08-28-2024 ambulatory Carlos Kirby Facility:[facility] Start: 08-11-2024 End: 08-11-[address] Carlos Kirby DPM -Cardiovascular Services Work Phone: Start: 08-11-2024 End: 08-11-2024 ambulatory Carlos Kirby Facility:[facility] Start: 07-30-2024 Encounter for genera l adult medical examination without abnormal findings Luis Enrique Napier [facility] Start: 06-26-2024 End: 06-26-[address] Luis Enrique Napier MD -Laboratory, [facility] Start: 06-26-2024 End: 06-26-2024 ambulatory Luis Enrique Napier Facility:[facility] Start: 06-01-2024 Encounter for other preprocedural examination Luis Enrique Napier [facility] Start: 05-22-2024 ambulatory Carlos Kirby Facilit y:[facility] Start: 05-22-2024 End: 05-25-2024 Evaluation and management of inpatient Carlos Perezmarnijon Facility:[facility] Start: 05-11-2024 End: 05-11-2024 ambulatory Luis Enrique Napier Facility:[facility] Start: 05-06-2024 Encounter for preprocedural cardiovascular examination Maliha Nieto NP [facility] Start: 05-06-2024 End: 05-06-2024 ambulatory Luis Enrique Napier Facility:[facility] Start: 05-06-[address] Kiki Napier MD Work Phone: [facility] Start: 03-21-2024 End: 03-21-2024 ambulatory Carlos Kirby Facility:[facility] Start: 11-11-2023 End: 11-11-2023 ambulatory [facility] Work Phone: Start: 11-11-2023 End: 11-11-2023 Patient encounter procedure [facility] Start: 07-10-2023 End: 07-10-2023 ambulatory [facility] Work Phone: Start: 07-10-2023 End: 07-10-2023 Patient encounter procedure [facility] Work Phone: Start: 02-03-2023 End: 02-03-2023 [facility] Start: 01-23-2023 End: 01-23-2023 ambulatory [facility] Work Phone: Start: 01-23-2023 End: 01-23-2023 Patient encounter procedure [facility] Start: 07-23-2022 End: 07-23-[address] Luis Enrique Napier Work Phone: [facility] Work Phone: Start: 07-23-2022 End: 07-23-[address] Luis Enrique Napier Work Phone: [facility] Start: 07-14-2022 End: 07-14-2022 Emergency department patient visit Dr. Luis Enrique [facility] Start: 07-12-2022 End: 07-12-[address] Luis Enrique Napier Work Phone: [facility] Start: 04-26-2022 End: 04-26-[address] Luis Enrique Napier Work Phone: [facility] Work Phone: Start: 04-26-2022 End: 04-26-[address] Luis Enrique Napier Work Phone: [facility] Start: 04-17-2022 End: 04-17-2022 Patient encounter procedure Huy Holm MD Work Phone: [facility] Comment on above: Carpal tunnel syndro me of left wrist (Primary Dx); Cubital tunnel syndrome on left Start: 02-01-2022 End: 02-01-[address] Luis Enrique Napier Work Phone: [facility] Start: 11-02-2021 End: 11-02-[address] Luis Enrique [facility] Start: 11-02-2021 End: 11-02-[address] Luis Enrique Napier Work Phone: [facility] Start: 10-02-2021 End: 10-02-[address] Luis Enrique Napier Work Phone: [facility] Start: 08-17-2021 Non-patient / Non-visit Dr. Elliott Napier Work Phone: [facility] Start: 08-17-2021 End: 08-17-[address] Luis Enrique Napier Work Phone: [facility]Cardiov[facility]cula [facility] Services Start: 08-03-2021 End: 08-03-[address] Luis Enrique Napier Work Phone: [facility] Start: 07-05-[address] Luis Enrique Napier Work Phone: [facility] Procedures Date Procedure Procedure Detail Performing Clinician Start: 10-19-2024 MRI of joint of lowe r extremity Dr. Luis Enrique Napier MD Work Phone: Start: 08-28-2024 MRI of lower extremity Dr. Luis Enrique Napier MD Work Phone: Start: 07-23-2022 X-ray of chest posteroanterior view Dr. Luis Enrique Napier Work Phone: Start: 07-14-2022 Computed tomography of abdomen and pelvis with intravenous contrast Dr. Luis Enrique Napier Work Phone: Start: 11-02-2021 Plain chest X-ray Dr. Kiki Napier Work Phone: Start: 12-27-2018 Antibody screen Comment on above: Performed By: #### A PTT #### [facility] [address] [place] [address] Start: 12-25-2018 Antibody screen Comment on above: Performed By: #### T &S #### [facility] [address] [place] [address] H/O: surgery History of fasciotomy Dr. Elliott Napier Work Phone: Plan of Treatment Date Care Activity Detail Author Start: 07-10-2023 Assay of prostate specific antigen total ASSAY OF PSA TOTAL [facility] Start: 07-14-2022 Respiratory secretion precautions [facility] Start: 03-08-2022 Influenza vaccination INFLUENZA (#1) [facility] Start: 01-05-2022 DIABETES SCREEN DIABETES SCREEN [facility] Start: 07-08-2021 DEPRESSION ASSESSMENT DEPRESSION ASSESSMENT [facility] Start: 2018 PROSTATE CANCER SCREENING DISCUSSION PROSTATE CANCER SCREENING DISCUSSION [facility] Start: 12-30-2016 Urine microalbumin profile DTAP,TDAP,TD (2 - Td or Tdap) [facility] Start: 01-20-2016 LIPID SCREEN LIPID SCREEN [facility] Start: 2013 SHINGRIX VACCINE (1 of 2) SHINGRIX VACCINE (1 of 2) [facility] Start: 12-31-2008 HEPATITIS B (2 of 3 - 3-dose series) HEPATITIS B (2 of 3 - 3-dose series) [facility] Start: 2008 COLOGUARD (FIT-DNA) COLOGUARD (FIT-DNA) [facility] Start: 2008 Colonoscopy COLONOSCOPY [facility] Start: 2008 COLORECTAL CANCER SCREENING COLORECTAL CANCER SCREENING [facility] Start: [address] COLONOGRAPHY [facility] Start: 2008 FECAL OCCULT BLOOD FECAL OCCULT BLOOD [facility] Start: 2008 SIGMOIDOSCOPY SIGMOIDOSCOPY [facility] Start: 1981 ANNUAL PCP TEAM CHRONIC DISEASE VISIT ANNUAL PCP TEAM CHRONIC DISEASE VISIT [facility] Start: 1981 BP CONTROLLED (<130/80) BP CONTROLLED (<130/80) [facility] Start: 1981 HEPATITIS C SCREENING HEPATITIS C SCREENING [facility] Start: 1981 HIV SCREENING HIV SCREENING [facility] Start: 01-30-1964 COVID-19 VACCINE (#1) COVID-19 VACCINE (#1) [facility] Patient Education [place] Work Phone: Patient referral [facility] Work Phone: Immunizations Immunization Date Immunization Notes Care Provider Fa cili 12-03-2008 hepatitis B vaccine, adult dosage Huy Holm Jr., MD Work Phone: [facility] Work Phone: 12-03-2008 hepatitis B vaccine, unspecified formulation Huy Holm Jr., MD Work Phone: [facility] 12-30-2006 tetanus toxoid, redu amol diphtheria toxoid, and acellular pertussis vaccine, adsorbed Huy Holm Jr., MD Work Phone: [facility] Work Phone: 12-18-2006 hepatitis B vaccine, pediatric or pediatric/adolescent dosage Huy Holm Jr., MD Work Phone: [facility] Payers Date Payer Category Payer Self-pay [id number] 2024 Unknown [id number] 2021 Medicaid [facility] [employer] [employer] [id number] 2021-Present [phone] [address] [place] [address] Medicaid [id number] 2021 Medicare [id number] 2013 Unknown [id number] Unknown [id number] Unknown [id number] Unknown [id number] Unknown [id number] Unknown [id number] Unknown [id number] Unknown [id number] Unknown [id number] Unknown [id number] Unknown [id number] Unknown [id number] Unknown [id number] Unknown [id number] Unknown [id number] Social History Date Type Detail Facility Start: 08-03-2021 End: 07-17-2023 Tobacco smoking status MDIS Unknown if ever smoked [facility] Start: 12-22-2018 Non-smoker [place] Start: 1965 Sex Assigned At Male [facility] Start: 07-04-2011 End: 05-18-2024 Tobacco smoking status NHIS Never smoked tobacco [facility] Work Phone: Start: 07-04-2011 Tobacco use and exposure Smokeless tobacco non-user [facility] Work Phone: Start: 04-17-2022 Alcohol intake Current non-dr pyrotechnician of alcohol (finding) [facility] Start: 1965 Sex Assigned At Not on file [facility] Start: 04-07-2022 End: 04-17-2022 Exposure to SARS-CoV-2 (event) Not sure [facility] Start: 10-23-2024 Sex Male (finding) [facility] Medical Equipment Procedure Code Equipment Code Equipment Original Text Equipment Identifier Dates Repair, tendon, biceps KIT,DISTAL BICEPS FDA Start: 12-24-2018 Repair, tendon, biceps KIT,DISTAL BICEPS FDA Start: 12-24-2018 Repair, tendon, biceps KIT,DISTAL BICEPS FDA Start: 12-24-2018 Repair, tendon, biceps KIT,DISTAL BICEPS FDA Start: 12-24-2018 Repair, tendon, biceps KIT,DISTAL BICEPS FDA Start: 12-24-2018 Repair, tendon, biceps KIT,DISTAL BICEPS FDA Start: 12-24-2018 Repair, tendon, biceps KIT,DISTAL BICEPS FDA Start: 12-24-2018 Repair, tendon, biceps KIT,DISTAL BICEPS FDA Start: 12-24-2018 Repair, tendon, biceps KIT,DISTAL BICEPS FDA Start: 12-24-2018 Repair, tendon, biceps KIT,DISTAL BICEPS FDA Start: 12-24-2018 Repair, tendon, biceps KIT,DISTAL BICEPS FDA Start: 12-24-2018 Fusion, talonavicular joint Marlene Screw FDA Start: 05-22-2024 Fusion, talonavicular joint Bone matrix implant, synthetic, non-antimicrobial ()[id number] FDA Start: 05-22-2024 Fusion, talonavicular joint [place] Screw FDA Start: 05-22-2024 Mental Status Date Assessment Result Facility 02-03-2023 Cognitive function Level Of Cons ciousness Awake;Alert;Appropriate;Follow s Commands [facility] Work Phone: Clinical Notes 04-13-2022 to 12-16-2024 Note Date & Type Note Facility 12-16-2024 Discharge summary Note Date/Time December 16, 2024 3:55pm [facility] Physical Therapy [facility] [address] [place] [address] / REHABILITATION SERVICES DISCHARGE SUMMARY MR#: [id number] Acct: [id number] Name: IRENE NIETO Rep #: [id number] : 1965 59 From: Manjit Esqueda DPT, OCS, CSCS Referring Dr.: ZAN Kirby Status : REG RCR Insurance: MEDICARE PART A B MEDICAID [place] Patient Information Patient Information: IRENE NIETO was seen in my office for initial evaluation on 08/03/24. The following Plan of Care was established for this patient: POC Established Initial Frequency: 2x /Week Initial Duration: 4-6 Weeks Anticipated Interventions Patient/Client Instruction: Educate patient on: Condition and Plan of Care For the Purpose of:: To decrease pain, To increase ROM, To improve nutrient delivery to tissue, To improve muscle performance and motor function and To increase tolerance to activity/condition/position Therapeutic Exercise to Include: Strength training, Flexibilty training, Gait and locomotor training, Passive ROM and Active ROM For the Purpose of:: To decrease pain, To increase ROM, To improve nutrient delivery to tissue, To improve muscle performance and motor function, To increase tolerance to activity/condition/position, To improve ability of physical actions for home/community/work/leisure and To improve gait and locomotor functions Manual Therapy Techniques to Include: Scar massage, Mobilization, Passive ROM and Soft tissue mobilization For the Purpose of:: To decrease pain, To increase ROM, To improve nutrient delivery to tissue, To improve muscle performance and motor function, To increase tolerance to activity/condition/position and To increase flexibility/ROM Cryotherapy (ice pack, ice massage): Yes Thermo therapy (hot pack): Yes For the Purpose of:: To decrease pain, To increase ROM, To improve nutrient delivery to tissue, To improve muscle performance and motor function, To increase tolerance to activity/condition/position and To improve ability of physical actions for home/community/work/leisure Last Seen Last Seen: This patient was last seen in our office 10/08/24. Pertinent comments regardingtheir Physical therapy will appear below: Pt seen 19 visits of POC and was 70% better but stagnant at last recheck. He wasto have an MRI and call back if meena needed further intervention. It has beeen over two months and I will discontinue him from my care. At this point I will be discontinuing this patient from physical therapy. I would be happy to see this patient again in the future if found appropriate by the physician. Thank you! Manjit Esqueda DPT, OCS, CSCS Balance/Gait/Functional tests Balance/Special Test Scores Lower Extremity Functional Score: 40 <Electronically signed by Manjit Esqueda DPT, SAMMY, CSCS> 12/16/24 1555 CC: ZAN Kirby; Dr. Luis Enrique Napier MD ~ EBG Signed [facility] Work Phone: [phone] 301-384506-11-2025 Discharge summary [facility] Physical [facility] [address] [place] [address]. [address] [place] [address] / REHABILITATION SERVICES DISCHARGE SUMMARY MR#: [id number] Acct: [id number] Name: IRENE NIETO Rep #: [id number] : 1965 59 From: Manjit Esqueda DPT, SAMMY, ALLIE Referring Dr.: ZAN Kirby Status : REG RCR Insurance: MEDICARE PART A B MEDICAID [place] Patient Information Patient Information: IRENE NIETO was seen in my office for initial evaluation on 08/03/24. The following Plan of Care was established for this patient: POC Established Initial Frequency: 2x /Week Initial Duration: 4-6 Weeks Anticipated Interventions Patient/Client Instruction: Educate patient on: Condition and Plan of Care For the Purpose of:: To decrease pain, To increase ROM, To improve nutrient delivery to tissue, To improve muscle performance and motor function and To increase tolerance to activity/condition/position Therapeutic Exercise to Include: Strength training, Flexibilty training, Gait and locomotor training, Passive ROM and Active ROM For the Purpose of:: To decrease pain, To increase ROM, To improve nutrient delivery to tissue, To improve muscle performance and motor function, To increase tolerance to activity/condition/position,To improve ability of physical actions for home/community/work/leisure and To improve gait and locomotor functions Manual Therapy Techniques to Include: Scar massage, Mobilization, Passive ROM and Soft tissue mobilization For the Purpose of:: To decrease pain, To increase ROM, To improve nutrient delivery to tissue, To improve muscle performance and motor function, To increase tolerance to activity/condition/position and To increase flexibility/ROM Cryotherapy (ice pack, ice massage): Yes Thermo therapy (hot pack): Yes For the Purpose of:: To decrease pain, To increase ROM, To improve nutrient delivery to tissue, To improve muscle performance and motor function, To increase tolerance to activity/condition/position and To improve ability of physical actions for home/community/work/leisure Last Seen Last Seen: This patient was last seen in our office 10/08/24. Pertinent comments regardingtheir Physical therapy will appear below: Pt seen 19 visits of POC and was 70% better but stagnant at last recheck. He wasto have an MRI and call back if meena needed further intervention. It has beeen over two months and I will discontinue him from my care. At this point I will be discontinuing this patient from physical therapy. I would be happy to see this patient again in the future if found appropriate by the physician. Thank you! Manjit Esqueda DPT, OCS, CSCS Balance/Gait/Functional tests Balance/Special Test Scores Lower Extremity Functional Score: 40 12/16/24 1555 CC: ZAN Kirby; Dr. Luis Enrique Napier MD ~ EBG Signed [facility]02-26-2025 Discharge summary Author Manjit Dheeraj [facility] Note Date/Time September 02, 2024 6:00pm [facility] Physical Therapy [facility] [address] [place] [address] / REHABILITATION SERVICES DISCHARGE SUMMARY MR#: [id number] Acct: [id number] Name: IRENE NIETO Rep #: [id number] : 1965 59 From: Manjit Esqueda DPT, OCS, CSCS Referring DrViry: ZAN Kirby Status : REG RCR Insurance: MEDICARE PART A B MEDICAID [place] Discharge Summary D/C summary: It has been my pleasure to treat IRENE NIETO referred by Dr. Carlos Kirby DPM, with the diagnosis of s/p subtalar joint arthrodesis 05/22/24 for a total of 10 visit(s). Discharge Date: 09/02/24 Please see the following information for a summary of their discharge status. Subjective Subjective: Getting better ROM. Pain is stabboing at times, described this week as 7/10 at times with walking and 2/10 at rest. Sleep is interrupted sometimes in thatoutside of ankle can hurt. Using pillow between feet. Not in boot anymore. Activities: at home is avoiding lifting and excessive walking. laundrybasket is partially full or two hands of groceries is avoided. Gets aorund house OK but steps are slow. Goes to grocery store but sometimes off loads withcrutch. Uses power chair at store. Had CT last week and Dr. Kirby in am. Doing Exercises daily at home. Pain L foot: Pain Intensity (Out of 10): 3 Overall Improvement % Improvement: 40 Objective Objective/Function: 3 degree DF, 23 degree PF in L ankle 7 inv and 8 eversion. Tender maximally lateral L foot. strength in ankle is 4+/5 without much pain. Gait is I but hurts L lateral foot with push off every step 7/10 and short L stanc time. Stands with L foot pointing out until cued. Steps are reciprocal with two railings and avoids forefoot use with descending. Improved ROM and mobility minimally but pain persists. Goals Goal 1:: AROM 4 DF and 40 PF L to help ambulate. Goal Progress: Progressing Goal 2:: I appropriate HEP to limit future problems strength adn stretch L ankle Goal Progress: Goal Met Goal 3:: walk without gait deviations without boot in community Goal Progress: Not Progressing Goal 4:: steps reciprocally without rail needed Goal Progress: Not Progressing Goal 5:: LEFS score40 Goal Progress: Progressing Goal 6:: Plan to hike in fall Goal Progress: Progressing Plan Plan: F/U with doctor for other options, CT review tomorrow d/c PT but happy to see longer if no other options. D/C Information Discharge Comments: To doctor tomorrow for f/u. d/c sentence: If there are questions or concerns regarding this patient's physical therapy, please feel free to call me at [phone]. Thank you for the referral of thispatient. Sincerely, Manjit Esqueda DPT, OCS, CSCS Balance/Gait/Functional tests Balance/Special Test Scores Lower Extremity Functional Score: 31 Improvement % Improvement: 40 <Electronically signed by SAMMY Betancourt DPT, CSCS> 09/02/24 1153 CC: ZAN Kirby; Dr. Luis Enrique Napier MD ~ EBG Signed [facility] Work Phone: 1(316) 754-308402-26-2025 Discharge summary [facility] Physical Therapy [facility] [address] [place] [address] / REHABILITATION SERVICES DISCHARGE SUMMARY MR#: [id number] Acct: [id number] Name: IRENE NIETO Rep #: [id number] : 1965 59 From: SAMMY Betancourt DPT, CSCS Referring Dr.: ZAN Kirby Status : REG RCR Insurance: MEDICARE PART A B MEDICAID [place] Discharge Summary D/C summary: It has been my pleasure to treat IRENE NIETO referred by Dr. Carlos Kirby, ZAN, with the diagnosis of s/p subtalar joint arthrodesis 05/22/24 for a total of 10 visit(s). Discharge Date: 09/02/24 Please see the following information for a summary of their discharge status. Subjective Subjective: Getting better ROM. Pain is stabboing at times, described this week as 7/10 at times with walking and 2/10 at rest. Sleep is interrupted sometimes in thatoutside of ankle can hurt. Using pillow between feet. Not in boot anymore. Activities: at home is avoiding lifting and excessive walking. laundrybasket is partially full or two hands of groceries is avoided. Gets aorund house OK but steps are slow. Goes to grocery store but sometimes off loads withcrutch. Uses power chair at store.Had CT last week and Dr. Kirby in am. Doing Exercises daily at home. Pain L foot: Pain Intensity (Out of 10): 3 Overall Improvement % Improvement: 40 Objective Objective/Function: 3 degree DF, 23 degree PF in L ankle 7 inv and 8 eversion. Tender maximally lateral L foot. strength in ankle is 4+/5 without much pain. Gait is I but hurts L lateral foot with push off every step 7/10 and short L stanc time. Stands with L foot pointing out until cued. Steps are reciprocal with two railings and avoids forefoot use with descending. Improved ROM and mobility minimally but pain persists. Goals Goal 1:: AROM 4 DF and 40 PF L to help ambulate. Goal Progress: Progressing Goal 2:: I appropriate HEP to limit future problems strength adn stretch L ankle Goal Progress: Goal Met Goal 3:: walk without gait deviations without boot in community Goal Progress: Not Progressing Goal 4:: steps reciprocally without rail needed Goal Progress: Not Progressing Goal 5:: LEFS score40 Goal Progress: Progressing Goal 6:: Plan to hike in fall Goal Progress: Progressing Plan Plan: F/U with doctor for other options, CT review tomorrow d/c PT but happy to see longer if no other options. D/C Information Discharge Comments: To doctor tomorrow for f/u. d/c sentence: If there are questions or concerns regarding this patient's physical therapy, please feel free to call me at [phone]. Thank you for the referral of thispatient. Sincerely, Manjit Esqueda, DPT, OCS, CSCS Balance/Gait/Functional tests Balance/Special Test Scores Lower Extremity Functional Score: 31 Improvement % Improvement: 40 09/02/24 1153 CC: ZAN Kirby; Dr. Luis Enrique Napier MD ~ EBG Signed [facility]11-18-2024 [facility] Medical Records Department [address] [place] [address] Discharge Summary 05/25/24 1645 MR#: [id number] Acct: [id number] Name: IRENE NIETO Fidel Rep #: [id number] : 1965 58 From: Carlos Kirby DPM PCP: Dr. Luis Enrique Napier MD Status:ADM IN Location: [facility] [id number] Providers Date of Admission: 05/22/24 Primary Care Physician: Dr. Luis Enrique Napier MD Consultations 05/22/24 13:34 Consult: Hospitalist Routine Consulting Provider: Byron Smith Reason for Consult: hypertension EMERGENT Consult: No MD Notified: Yes Date Notified: 05/22/24 Time Notified: 15:37 Method of Notification: Text Reason For Visit: Left subtalar joint fusion/arthrode Diagnosis Discharge Diagnosis (1) Arthritis of left subtalar joint: Status: Acute Code(s): M19.072 - Primary osteoarthritis, left ankle and foot (2) Pain in left foot: Status: Acute Code(s): M79.672 - Pain in left foot Plan s/p left foot subtalar joint arthrodesis and excision of os trigonum on 05/22/2024 without complication. Keep dressing/splint clean, dry and intact. No weightbearing left foot, keep foot elevated. Pain management: Acetaminophen, Oxyir, Dilaudid. DVT Prophylaxis: Lovenox 40mg subc daily. Antibiotic Prophylaxis: Ancef 1g q 8 hours - completed and discontinued. Hypertension: Hospital consult - appreciate assistance. d/c planning: continued post op pain, not ready for d/c today, possible d/c tomorrow once pain is controlled on oral pain medication. Medications at Discharge Home Medications cholecalciferol (vitamin D3) 250 mcg (10,000 unit) tablet 250 mcg PO DAILY 08/03/21 magnesium 200 mg tablet 200 mg PO DAILY 08/03/21 pregabalin 75 mg capsule (Lyrica) 75 mg PO 4X/DAY 11/02/21 tizanidine 2 mg capsule (Zanaflex) 2 mg PO Q8H PRN muscle spasticity 02/01/22 valsartan 80 mg tablet 40 mg PO QHS 02/01/22 vitamin B complex 1 cap PO QDAY 05/06/24 ascorbic acid (vitamin C) 500 mg tablet,extended release (C-500) 500 mg PO DAILY 05/18/24 cyanocobalamin-liver extract tablet 5,000 tab PO DAILY 05/18/24 pitavastatin calcium 1 mg tablet 1 mg PO QHS 05/18/24 apixaban 2.5 mg tablet (Eliquis) 2.5 mg PO Q12H #60 tabs 05/25/24 oxycodone-acetaminophen 5 mg-325 mg tablet (Percocet) 1 - 2 tab PO Q4H PRN pain 3 days #30 tabs 05/25/24 Hospital Course Operations - (s/p left subtalar joint arthrodesis and excision of os trigonum on 05/22/2024 - patient admitted for post op pain management and observation - pt doing well and pain well controlled at this time and ok to d/c) Physical Exam Const alert, oriented x3 and no apparent distress Constitutional Narrative: Dressing/splint clean, dry and intact, CFT < 2 seconds to all toes left foot, able to dorsiflex and plantarflex toes left foot, no suspicion of infection, compartment syndrome, or dvt. Weight / BMI Weight Weight: 100.698 kg Body Mass Index (BMI) 33.7 ABG / Lab / Microbiology Data 05/24/24 15:27 05/24/24 15:27 D/C Instructions Weight Bearing Status: No weight bearing (No weightbearing left foot) Keep extremity elevated above heart level: Operative Extremity (Keep left foot elevated with pillows at least 50 minutes of every hour, be sure to keep pressure off of heel) Call your doctor if your incision/area has: Continuous Slow Oozing, Sudden Increased Bleeding and Foul Smelling Discharge Call your doctor if you observe: Fever of 101 or Higher, Coldness, Increased Pain, Shortness of breath, Chest pain, Increased palpitations (irregular heartbeat), Calf discomfort and Uncontrolled pain Cleanse incision/area with: Keep Dressing Clean Dry Please Follow Up With: Carlos Kiryb DPM When: in office this week Meaningful Use Info Meaningful Use Meaningful Use Diagnoses (Choose all that apply): None applicable Ischemic Stroke Statin Dosing Therapy Reference: STATIN DOSE THERAPY REFERENCE: * Patients > 75 years receive moderate or high dose statin therapy. * Patients 75 years or YOUNGER should receive HIGH intensity statin dose unless contraindicated. You will be required to document reason for non-treatment if statin daily dose does not meet guidelines. HIGH DOSE STATIN THERAPY DAILY Atorvastatin > than or = to 40 mg Rosuvastatin > than or = to 20 mg Amlodipine + Atorvastatin > than or = to 2.5/40 mg Ezetimibe + Simvastatin 10/80 mg Simvastatin 80mg Discharge Plan Admission Admit Date/Time: 05/22/24 13:28 Attending Provider: Carlos Kirby Primary Care Provider: Luis Enrique Napier Consulting Providers: Clare Freitas Discharge Orders/Prescriptions Prescriptions: New oxycodone-acetaminophen [Percocet] 5-325 mg tablet 1 - 2 tab PO Q4H PRN (Reason: pain) 3 Days Qty: 30 0RF Eliquis 2.5 mg tablet 2.5 mg PO Q12H Qty: 60 0RF Continued cholecalc (more content not included)...[facility]11-15-2024 [facility] Medical Records Department [address] [place] [address] History Physical Exam 05/22/242041 MR#: [id number] Acct: [id number] Name: IRENE NIETO Rep #: [id number] : 1965 58 From: Carlos Kirby DPM PCP: Dr. Luis Enrique Napier MD Status:ADM IN Location: [facility] [id number] HPI - General General Date of Admission: 05/22/24 Chief Complaint: Left foot post op HPI Narrative IRENE NIETO, is a 58 M who presents for post op management left foot. He had left foot subtalar joint arthrodesis and excision of os trigonum without complication. He was admitted for post op management. [facility] Medical History Wears glasses Anxiety High cholesterol Pain Back pain Non-smoker History of pain when walking History of edema History of echocardiogram History of stress test Cardiology follow-up encounter Impacted cerumen, right ear Influenza A Mixed hyperlipidemia Essential hypertension Home Medications ???Medication ???Instructions ???Recorded ???Last Taken ???Type cholecalciferol (vitamin D3) 250 250 mcg PO DAILY 08/03/21 05/21/24 History mcg (10,000 unit) tablet magnesium 200 mg tablet 200 mg PO DAILY 08/03/21 05/21/24 History pregabalin 75 mg capsule (Lyrica) 75 mg PO 4X/DAY 11/02/21 05/22/24 06:00 History tizanidine 2 mg capsule (Zanaflex) 2 mg PO Q8H PRN muscle spasticity 02/01/22 05/20/24 History valsartan 80 mg tablet 40 mg PO QHS 02/01/22 05/21/24 History vitamin B complex 1 cap PO QDAY 05/06/24 05/21/24 History ascorbic acid (vitamin C) 500 mg 500 mg PO DAILY 05/18/24 05/21/24 History tablet,extended release (C-500) cyanocobalamin-liver extract tablet 5,000 tab PO DAILY 05/18/24 05/21/24 History pitavastatin calcium 1 mg tablet 1 mg PO QHS 05/18/24 05/21/24 History Allergy/AdvReac Type Severity Reaction Status Date / Time pseudoephedrine Allergy Other Verified 05/22/24 15:12 losartan AdvReac Severe cough Verified 05/22/24 09:31 Gadolinium-MRI Contrast AdvReac Vomiting Verified 05/22/24 09:31 Medium (Gadolinium-Contrast Medium - MRI) Surgical History Hx of colonoscopy Hx of fasciotomy History of surgery on arm Hx of bursectomy Social History Smoking Status: Never smoker alcohol intake: never substance use type: does not use caffeine: Yes (occasional) Type: carbonated beverages Vital Signs Vital Signs Vital Signs: 05/22/24 09:36 05/22/24 09:36 05/22/24 09:53 Temperature 98 F 98 F Temperature Source Temporal Pulse Rate 75 75 Respiratory Rate 16 16 Respiratory Pattern Normal Blood Pressure 159/91 H 159/91 H Blood Pressure Mean 113 Blood Pressure Source Monitor Blood Pressure Position Semi-Fowlers Blood Pressure Location Left Arm Baseline BP Pulse Ox 98 98 Oxygen Delivery Method Room Air 05/22/24 13:33 05/22/24 13:35 05/22/24 13:40 Temperature 97.2 F L Temperature Source Temporal Pulse Rate 72 71 73 Respiratory Rate 18 16 18 Respiratory Pattern Normal Blood Pressure 142/87 H 120/87 H 130/83 H Blood Pressure Mean 105 98 98 Blood Pressure Source Monitor Monitor Monitor Blood Pressure Position Semi-Fowlers Semi-Fowlers Semi-Fowlers Blood Pressure Location Right Arm Right Arm Right Arm Baseline BP 159/91 159/91 159/91 Pulse Ox 95 95 94 Oxygen Delivery Method Room Air Room Air Room Air 05/22/24 13:45 05/22/24 14:00 05/22/24 14:15 Temperature Temperature Source Pulse Rate 74 70 72 Respiratory Rate 16 16 16 Respiratory Pattern Blood Pressure 137/86 H 143/95 H 150/87 H Blood Pressure Mean 103 111 108 Blood Pressure Source Monitor Monitor Monitor Blood Pressure Position Semi-Fowlers Semi-Fowlers Semi-Fowlers Blood Pressure Location Right Arm Right Arm Right Arm Baseline BP 159/91 159/91 159/91 Pulse Ox 95 96 98 Oxygen Delivery Method Room Air Room Air Room Air 05/22/24 14:30 05/22/24 14:43 05/22/24 15:05 Temperature 97.7 F L 97.8 F Temperature Source Temporal Temporal Pulse Rate 76 78 73 Respiratory Rate 16 16 18 Respiratory Pattern Blood Pressure 154/102 H 157/98 H 145/83 H Blood Pressure Mean 119 117 103 Blood Pressure Source Monitor Monitor Monitor Blood Pressure Position Semi-Fowlers Semi-Fowlers Semi-Fowlers Blood Pressure Location Right Arm Right Arm Left Arm Baseline BP 159/91 159/91 Pulse Ox 96 94 98 Oxygen Delivery Method Room Air Room Air Room Air 05/22/24 17:01 05/22/24 19:01 Temperature 97.7 F L 97.8 F Temperature Source Oral Oral Pulse Rate 97 98 Respiratory Rate 16 18 Respiratory Pattern Blood Pressure 17 (more content not included)...[facility] 04-13-2022 History of Present illness Narrative* Huy Holm Jr., MD - 04/13/2022 1:44 PM EDT CARPAL TUNNEL 04/13/2022 : 1965 HISTORY OF CHIEF COMPLAINT: Irene Nieto is a 56 year old male who is seeing me today for Carpal Tunnel Syndrome. 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 VITAMIN B COMPLEX ORAL Take by mouth. cholecalciferol, vitamin D3, (VITAMIN D3 ORAL) Take by mouth. cyanocobalamin, vitamin B-12, (VITAMIN B-12 ORAL) Take by mouth. ascorbic acid (VITAMIN C ORAL) Take by mouth. CAPSICUM, CAYENNE, ORAL Take by mouth. DULoxetine (CYMBALTA) 20 mg capsule nortriptyline (PAMELOR) 50 mg capsule tiZANidine (ZANAFLEX) 4 mg tablet oxyCODONE IR (ROXICODONE) 5 mg immediate release tablet Take 5 mg by mouth every 8 hours as needed. buprenorphine (BUTRANS) 5 mcg/hour gabapentin (NEURONTIN) 300 mg capsule omeprazole (PRILOSEC) 20 mg capsule Take 20 mg by mouth once daily. armodafinil (NUVIGIL) 150 mg tab Take 75 mg by mouth once daily. For shift work disorder No current facility-administered medications for this visit. ALLERGIES Allergen Reactions Sudafed [Pseudoephe* Other: See Comments Severe htn, elevated HR There were no vitals taken for this visit. PHYSICAL EXAMINATION: General: he is a well developed, well nourished male Psyche: he is alert and oriented and cooperative to our examination Skin: Skin condition is healthy without rashes or erythema. Cadiovascular: Palpable radial pulse with brisk cap refill distally Neck: Supple with no JVD Lymph: There is no palpable epitrochlear Pulmonary: There is non labored breathing. There is no evidence of cyanosis. There is no clubbing of his fingernails. he has no pursed lips. Neuro: he is alert and oriented x3. There are no focal neurologic deficits. See sensation exam below. Head: Normocephalic and atraumatic Musculoskeletal: Hand: NERVOUS SYSTEM: Tinel at wrist:negative Tinel at elbow:negative Median nerve compression test:Unable to tolerate Phalen's maneuver:postive Elbow flexion test:postive Thenar Atrophy R:negative Thenar Atrophy L:negative Sensation: Intact to light touch APB strength:5/5 No ulnar nerve subluxation. Review of Studies: NC study from [facility] 03/05/2022: mild left carpal tunnel syndrome and left cubital tunnel syndrome Assessment: 1.Carpal Tunnel Syndrome left 2.Cubital tunnel syndrome on left RECOMMENDATIONS: Surgery Splints: Wear splints at night. Plan: I reviewed his nerve conduction test and EMG from outside hospital. I also reviewed previous notes from his forearm fasciotomy. I did offer him Left cubital tunnel release and left recurrent carpal tunnel release with hypothenar fat graft. I explained the risk, benefits, and potential complications of surgery. he understands these risks and agrees with the plan. We will schedule this at our earliest mutual convenience. Medical Decision Making: Problems: Moderate: 2+ stable chronic illnesses Data: Unique source(s) for external note(s) reviewed: 2 Unique test result(s) reviewed: 1 Risk: Moderate: Decision on minor surgery w/ risk factors Medical Decision Making Level: 4 - Moderate Please note: This note has been produced using speech recognition software and may contain errors related to that system including grammar, punctuation, spelling, gender and words and phrases that may be inappropriate. documented in this encounterTogus [facility] CenterEval[facility] [place] note* Diagnosis Onset Date Resolution Status Chest pain acute Essential hypertension acute Mixed hyperlipidemia acute [facility] Work Phone: Evaluation note* Diagnosis Onset Date Resolution Status Chest pain acute Essential hypertension acute Mixed hyperlipidemia acute Chest pain acute Essential hypertension acute Fatigue acute Mixed hyperlipidemia acute [facility] Work Phone: Evaluation note* Diagnosis Carpal tunnel syndrome of left wrist- Primary Carpal tunnel syndrome Cubital tunnel syndrome on left Lesion of ulnar nerve documented in this encounter [facility] note* Diagnosis Onset Date Resolution Status Impacted cerumen, right ear acute Influenza A acute [facility] Work Phone: Evaluation noteNo assessment information available [facility] Work Phone: Hospital Discharge instructions Additional Instructions Take antibiotics until finished. Ice, elevate. Use Benadryl creamWCleveland [facility] Work Phone: Reason for referral (narrative)No reason for referral information availableC[facility] Work Phone: Summary Purpose Family History No Family History Records FoundNo Family History Records FoundNo Family History Records Found Advance Directives No Advanced Directives Records Found Advance Directive Response Recorded Date/ Time Advance Directives No January 05 9 3:28pm Living Will No March 30, 2019 7:34pm Power of Survival Equipment Repairer No March 7:34pm Advance Directive Response Recorded Date/ Time Advance Directives No July 12, 2022 10:27am Living Will No July 14 9:19am Power of Survival Equipment Repairer No July 14 9:19am Advance Directive Response Recorded Date/ Time Advance Directives No July 12, 2022 11:27am Living Will No February 03, 2023 8:43pm Power of Survival Equipment Repairer No February 03 8:43pm Advance Directive Response Recorded Date/ Time Advance Directives No July 12, 2022 10:27am Living Will No February 03, 2023 7:43pm Power of Survival Equipment Repairer No February 03 7:43pm Advance Directive Response Recorded Date/ Time Advance Directives No July 12, 2022 11:27am Hospital Course Note HNO ID: [id number] Author: Watson Espinoza Service: Orthopaedic Surgery Author Type: Physician Type: Discharge Summary Filed: 01/07/2019 8:29 AM Note Text: DISCHARGE SUMMARY PATIENT NAME: Irene Nieto ADMISSION DATE: 12/24/2018 DISCHARGE DATE: 01/05/2019 Attending Physician: Mitchell Winter MD Reason for Hospitalization: Principal Problem: Injury of radial artery at forearm level, left, initial encounter Active Problems: Essential hypertension, benign Obesity, Class I, BMI 30-34.9 Limb ischemia Obesity, Class II, BMI 35-39.9 Resolved Problems: * No resolved hospital problems. * Admitting Diagnosis: Vascular injury s/p L distal biceps repair Discharge Diagnosis: Same as admitting Operations During Hospitalization: Procedure(s) (LRB): SECONDARY WOUND CLOSURE UPPER EXTREMITY COMPLEX (Left) APPLICATION WOUND VAC BACK TOTAL WOUND SURFACE GREATER THAN 50 SQ CENTIMETERS (Left) Consultations: Physical Therapy Case Management . Hospital Course: The patient is a 53 year old (more content not included)... Note HNO ID: [id number] Author: Kathy Gambino Service: Vascular Surgery Author Type: Resident Type: Brief Op Note Filed: 12/25/2018 12:37 AM Note Text: BRIEF OPERATIVE / PROCEDURE NOTE LOG ID: [id number] SURGERY/PROCEDURE DATE: 12/24/2018 INCISION/PROCEDURE START TIME: 10:13 PM INCISION CLOSE/PROCEDURE END TIME: SURGEON(S)/PROCEDURALIST(S) AND SCHEDULING CLERK(S): Surgeon(s) and Role: * Bonnie Guo - Primary * Mil Gambino - Resident Physician City Attorney: [place]usum [place] ([place]) * Jesús Espinoza - Attending * Ja Mcginnis - Resident SURGERY/PROCEDURE(S): 1) Exploration of LUE 2) Evacuation of Hematoma 3) Repair of L Radial Artery 4) Re-Implantation of L Ulnar Artery 5) LUE Fasciotomy and Carpal Tunnel Release ANESTHESIA: General FINDINGS: Brachial artery injury, hematoma, ischemia vs necrotic muscle Post-op --> +Radial/Ulnar/Palmar signals ESTIMATED BLOOD LOSS: 100-150 mls SPECIMENS: None COMPLICATIONS: None PRE-OP/PRE-PROCEDURE 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 Note HNO ID: [id number] Author: Watson Espinoza Service: ? Author Type: Physician Type: Brief Op Note Filed: 12/27/2018 9:18 AM Note Text: BRIEF OPERATIVE / PROCEDURE NOTE LOG ID: [id number] SURGERY/PROCEDURE DATE: 12/27/2018 INCISION/PROCEDURE START TIME: 8:40 AM INCISION CLOSE/PROCEDURE END TIME: 9:03 AM SURGEON(S)/PROCEDURALIST(S) AND SCHEDULING CLERK(S): Surgeon(s) and Role: * Georgi Espinoza - Primary Assistants: Dr Sargent, Dr Townsend. SURGERY/PROCEDURE(S): I and D, dressing change left forearm Fasciotomy wound ANESTHESIA: General FINDINGS: Expected postop swelling and some blisters. Wound edges viable. Muscle viable, no necrosis noted. Will need split thickness skin grafting for closure. Pulses remained intact by palpation and doppler at completion. ESTIMATED BLOOD LOSS: 0 ml SPECIMENS: None COMPLICATIONS: None PRE-OP/PRE-PROCEDURE DIAGNOSIS: Fasciotomy wound left forearm status post revascularization procedure POST-OP/POST-PROCEDURE DIAGNOSIS: Same SIGNATURE: Georgi Espinoza MD PATIENT N (more content not included)... Note HNO ID: [id number] Author: C hrguzman Rudolph Service: Orthopaedic Surgery Author Type: Resident Type: Brief Op Note Filed: 12/30/2018 9:43 AM Note Text: BRIEF OPERATIVE / PROCEDURE NOTE Surgery/Procedure Date: 12/30/18 Surgeon(s)/Proceduralist(s) and City Attorney(s): Dr. Winter, Attending, Primary Surgeon Dr. Rudolph, Resident, Assisting Pre-Op/Pre-Procedure Diagnosis: left arm radial and ulnar artery injury s/p POD5 repair, left forearm compartment syndrome s/p POD5 L forearm volar fasciotomy Post-Op/Post-Procedure Diagnosis: Same Procedure(s): Irrigation and debridement of left forearm fasciotomy with application of wound vac Anesthesia: General Findings: None Estimated Blood Loss: <15 mls Fluids: 800cc Specimens: None Special Medications: Ancef 2gs Drains: None Complications: None POST OP PLAN: INITIAL POST-OP MANAGEMENT PLAN: Pain Management: Per pain management DVT prophylaxis: Per CVICU, currently heparin, ok for chemoppx per ortho. Perioperative Antibiotics: Ancef 2gs (more content not included)... Procedure Findings Note HNO ID: [id number] Author: Kathy Gambino Service: Vascular Surgery Author Type: Resident Type: Brief Op Note Filed: 12/25/2018 12:37 AM Note Text: BRIEF OPERATIVE / PROCEDURE NOTE LOG ID: [id number] SURGERY/PROCEDURE DATE: 12/24/2018 INCISION/PROCEDURE START TIME: 10:13 PM INCISION CLOSE/PROCEDURE END TIME: SURGEON(S)/PROCEDURALIST(S) AND SCHEDULING CLERK(S): Surgeon(s) and Role: * Bonnie Guo - Primary * Mil Gambino - Resident Physician City Attorney: [place]um [place] * Jesús Espinoza - Attending * Ja Mcginnis - Resident SURGERY/PROCEDURE(S): 1) Exploration of LUE 2) Evacuation of Hematoma 3) Repair of L Radial Artery 4) Re-Implantation of L Ulnar Artery 5) LUE Fasciotomy and Carpal Tunnel Release ANESTHESIA: General FINDINGS: Brachial artery injury, hematoma, ischemia vs necrotic muscle Post-op --> +Radial/Ulnar/Palmar signals ESTIMATED BLOOD LOSS: 100-150 mls SPECIMENS: None COMPLICATIONS: None PRE-OP/PRE-PROCEDURE 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 Note HNO ID: [id number] Author: Watson Espinoza Service: ? Author Type: Physician Type: Brief Op Note Filed: 12/27/2018 9:18 AM Note Text: BRIEF OPERATIVE / PROCEDURE NOTE LOG ID: [id number] SURGERY/PROCEDURE DATE: 12/27/2018 INCISION/PROCEDURE START TIME: 8:40 AM INCISION CLOSE/PROCEDURE END TIME: 9:03 AM SURGEON(S)/PROCEDURALIST(S) AND SCHEDULING CLERK(S): Surgeon(s) and Role: * Georgi Espinoza - Primary Assistants: Dr Sargent, Dr Townsend. SURGERY/PROCEDURE(S): I and D, dressing change left forearm Fasciotomy wound ANESTHESIA: General FINDINGS: Expected postop swelling and some blisters. Wound edges viable. Muscle viable, no necrosis noted. Will need split thickness skin grafting for closure. Pulses remained intact by palpation and doppler at completion. ESTIMATED BLOOD LOSS: 0 ml SPECIMENS: None COMPLICATIONS: None PRE-OP/PRE-PROCEDURE DIAGNOSIS: Fasciotomy wound left forearm status post revascularization procedure POST-OP/POST-PROCEDURE DIAGNOSIS: Same SIGNATURE: Georgi Espinoza MD PATIENT N (more content not included)... Note HNO ID: [id number] Author: Pinky corona (Berna) Klaudia Service: Orthopaedic Surgery Author Type: Resident Type: Brief Op Note Filed: 12/30/2018 9:43 AM Note Text: BRIEF OPERATIVE / PROCEDURE NOTE Surgery/Procedure Date: 12/30/18 Surgeon(s)/Proceduralist(s) and City Attorney(s): Dr. Winter, Attending, Primary Surgeon Dr. Rudolph, Resident, Assisting Pre-Op/Pre-Procedure Diagnosis: left arm radial and ulnar artery injury s/p POD5 repair, left forearm compartment syndrome s/p POD5 L forearm volar fasciotomy Post-Op/Post-Procedure Diagnosis: Same Procedure(s): Irrigation and debridement of left forearm fasciotomy with application of wound vac Anesthesia: General Findings: None Estimated Blood Loss: <15 mls Fluids: 800cc Specimens: None Special Medications: Ancef 2gs Drains: None Complications: None POST OP PLAN: INITIAL POST-OP MANAGEMENT PLAN: Pain Management: Per pain management DVT prophylaxis: Per CVICU, currently heparin, ok for chemoppx per ortho. Perioperative Antibiotics: Ancef 2gs (more content not included)... Chief Complaint and Reason for Visit Chief Complaint CP/HTN/REF. NAPIER ATYPICAL CP Reason for Visit Chest pain Essential hypertension Mixed hyperlipidemia Chief Complaint CP/HTN/REF. NAPIER ATYPICAL CP 3 m fu Reason for Visit Chest pain Essential hypertension Mixed hyperlipidemia Chest pain Essential hypertension Fatigue Mixed hyperlipidemia Chief Complaint 3 M FU Reason for Visit Chest pain Essential hypertension Mixed hyperlipidemia Chief Complaint FLU/COVID TEST abd pain Reason for Visit Impacted cerumen, ri ght ear Influenza A Chief Complaint FLU/COVID TEST abd pain RIB INJURY - LEFT Reason for Visit Impacted cerumen, ri ght ear Influenza A Chief Complaint BITE Chief Complaint Admit Date STAT LEFT LEG PAIN August 11, 2024 1 2:30pm LLE PAIN August 11, 2024 1 2:50pm LT FOOT PAIN, S/P LT SUBTALER JOINT ARTH RODESIS August 28, 2024 6:57pm SUBTALAR JOINT ARTHRODESIS. RX HERE Apri l 2024 9:30am PERSONAL TENDINITIS/ FUSION W/SCREWS Oct 10:31am Chief Complaint Admit Date LT FOOT PAIN, S/P LT SUBTALER JOINT ARTH RODESIS August 28, 2024 6:57pm SUBTALAR JOINT ARTHRODESIS. RX HERE A[facility] l 2024 9:30am PERSONAL TENDINITIS/ FUSION W/SCREWS Oct 10:31am Additional Source Comments (unrecognized sect ion and content) No Status Records FoundNo Status Records FoundNo Status Records Found INFORMATION SOURCE (unrecogn ized section and content) DATE CREATED AUTHOR 07/14/2019 [facility] DATE CREATED AUTHOR AUTHOR'S ORGANIZ ATION 10/05/2019 [facility] DATE CREATED AUTHOR AUTHOR'S ORGANIZ ATION [facility] Goals (unrecognized section and content) Goals may be documented in a n alternate sectionGoals may be documented in an alternate sectionGoals may be documented in an alternate sectionGoals may be documented in an alternate sectionGoals may be documented in an alternate sectionGoals may be documented in an alternate sectionGoals may be documented in an alternate sectionGoals may be documented in an alternate sectionGoals may be documented in an alternate sectionGoals may be documented in an alternate sectionGoals may be documented in an alternate section Source Comments (unrecognize d section and content) In the event this informatio n is protected by the Federal Confidentiality of Alcohol and Drug Abuse Patient Records regulations: The Federal rules restrict any use of the information to criminally investigate or prosecute any alcohol or drug abuse patient.[facility] Reason for Visit (unrecogniz ed section and content) Reason Comments New Care Teams (unrecognized sec tion and content) Dinner Cook Relationship Specialty Start Date End Date Luis Enrique Napier MD [address] [facility] [address] [place] [address] PCP - General Family Medicine 09/30/18 Team Status: Active Member Role Status Dates Dr. Luis Enrique Napier MD Family Provider Active Dr. Luis Enrique Napier MD Primary Care Provider Active Team Status: Inactive Member Role Status Dates Dr. Luis Enrique Napier MD Primary Care Provider, Referring Provider Active Irene Yun PA, PA Attending Provider Active Team Status: Inactive Member Role Status Dates Dr. Luis Enrique Napier MD Primary Care Provi brooke, Attending Provider, Referring Provider Active Team Status: Inactive Member Role Status Dates Dr. Luis Enrique Napier MD Primary Care Provider Active Dr. Jose Cornejo MD Attending Provider, Emergency Provider Active Team Status: Active Member Role Status Dates Dr. Luis Enrique Napier MD Primary Care Provider, Attending Provider Active Team Status: Inactive Member Role Status Dates Dr. Luis Enrique Napier MD Primary Care Provider Active Dr. Manjit Nuñez DO Emergency Provider Active Team Status: Inactive Member Role Status Dates Dr. Luis Enrique Napier MD Primary Care Provider, Attending Provider Active Team Status: Inactive Member Role Status Dates Dr. Luis Enrique Napier MD Primary Care Provider Active Dr. Manjit Nuñez DO Attending Provider, Emergency P tatum Active Team Status: Active Member Role Status Dates Dr. Luis Enrique Napier MD Primary Care Provider Active Team Status: Inactive Member Role Status Dates Dr. Luis Enrique Napier MD Primary Care Provider Active Start: June 26, 2024 End: June 26, 2024 Dr. Luis Enrique Napier MD Attending Provider Active Start: June 26, 2024 End: June 26, 2024 Dr. Luis Enrique Napier MD Referring Provider Active Start: June 26, 2024 End: June 26, 2024 Team Status: Inactive Member Role Status Dates Dr. Luis Enrique Napier MD Primary Care Provider Active Start: August 11, 2024 End: August 11, 2024 Dr. Carlos Kirby DPM Attending Provider Active Start: August 11, 2024 End: August 11, 2024 Team Status: Active Member Role Status Dates Dr. Adiel Cuevas MD Attending Provider Active Start: August 11, 2024 Dr. Carlos Kirby DPM Referring Provider Active Start: August 11, 2024 Team Status: Inactive Member Role Status Dates Dr. Luis Enrique Napier MD Primary Care Provider Active Start: August 28, 2024 End: August 28, 2024 Dr. Carlos Kirby DPM Attending Provider Active Start: August 28, 2024 End: August 28, 2024 Dr. Carlos Kirby DPM Referring Provider Active Start: August 28, 2024 End: August 28, 2024 Team Status: Active Member Role Status Dates Dr. Luis Enrique Napier MD Primary Care Provider Active Start: October 08, 2024 Dr. Carlos Kirby DPM Attending Provider Active Start: October 08, 2024 Team Status: Inactive Member Role Status Dates Dr. Luis Enrique Napier MD Primary Care Provider Active Start: October 19, 2024 End: October 19, 2024 Dr. Carlos Kirby DPM Attending Provider Active Start: October 19, 2024 End: October 19, 2024 Dr. Carlos Kirby DPM Referring Provider Active Start: October 19, 2024 End: October 19, 2024 Team Status: Inactive Member Role Status Dates Dr. Luis Enrique Napier MD Primary Care Provider Active Start: October 08, 2024 End: October 08, 2024 Dr. Carlos Kirby DPM Attending Provider Active Start: October 08, 2024 End: October 08, 2024 FOR RECORDS PERTAINING TO PATIENTS WHO ARE OR HAVE BEEN ENROLLED IN A CHEMICAL DEPENDENCY/SUBSTANCEABUSE PROGRAM, SOME INFORMATION MAY BE OMITTED. This clinical summary was aggregated from multiple sources. Caution should be exercised in using it in the provision of clinical care. This summary normalizes information from multiple sources, and as a consequence, information in this document may materially change the coding, format and clinical context of patient data. In addition, data may be omitted in some cases. CLINICAL DECISIONS SHOULD BE BASED ON THE PRIMARY CLINICAL RECORDS. [employer] [facility]. provides no warranty or guarantee of the accuracy or completeness of information in this document.
== END | disposition home or self-care (01) ==
LOC: MFPLAB 11:40
PROVIDERS: PCP Family Medicine; Visit Provider Family Medicine
DX: I10 Essential (primary) hypertension (principal); E78.5 Hyperlipidemia, unspecified
CPT/HCPCS: 36415; 80053; 80061

== ENCOUNTER 2025-06-28 15:12 | Outpatient (CLI) | payer MEDICARE, SELFPAY ==
[2025-06-28 18:30] LABS: Anion Gap 12 (7-18); BUN 13 mg/dL (4-19); BUN/Creat Ratio 12.9 RATIO (10-20); Calcium,Total 9.9 mg/dL (7.6-11.0); Carbon Dioxide 26.2 mmol/L (20.0-29.0); Chloride 101 mmol/L (96-106); Cholesterol 242 mg/dL (<=200); Glucose 91 mg/dL (70-99); Low Density Lipoprotein Calc. 174 mg/dL; PSA,Total - Annual Screen 3.68 ng/mL (0.02-4.00); Potassium 4.1 mmol/L (3.5-5.1); Triglycerides 110 mg/dL; Very Low Density Lipoprotein 22 mg/dL (5-40); cholesterol:hdl ratio screen 4.97
== END 2025-06-28 23:59 | disposition home or self-care (01) ==
LOC: MFPLAB 15:14
PROVIDERS: PCP Family Medicine; Visit Provider Family Medicine
DX: Z00.00 Encounter for general adult medical examination without abnormal findings (principal); I10 Essential (primary) hypertension; Z12.5 Encounter for screening for malignant neoplasm of prostate
CPT/HCPCS: 36415; 80048; 80061; 84153; G0103